=== PATIENT | female | born 1940 | race Caucasian/White ===

== ENCOUNTER 2019-05-13 16:10 | Outpatient (CLI) | payer MEDICARE, SELFPAY ==
--- NOTE | ~2019-05-13 | XR_ITS ---
XR chest 2V DATE: 05/13/2019 16:24 INDICATION: Dyspnea on exertion. Hypertension. Cardiac bypass surgery one year ago. TECHNIQUE: PA and lateral views COMPARISON: None FINDINGS: Status post sternotomy/CABG. No pulmonary infiltrate or consolidation, pulmonary vascular congestion or pleural effusion or pneumothorax. There is minimal left and mild right blunting of the costophrenic angles which may be due to pleural effusion or chronic change. Diffuse osteopenia. Diffuse idiopathic skeletal hyperostosis. IMPRESSION: Status post sternotomy/CABG Right mild and left minimal blunting of costophrenic angles, which may be chronic; cannot exclude min imal pleural effusion. Reviewed, dictated and finalized at location B. FORCE MANAGEMENT CONSULTANT IMPRESSION: Status post sternotomy/CABG Right mild and left minimal blunting of costophrenic angles, which may be chron ic; cannot exclude minimal pleural effusion.
== END 2019-05-13 16:11 | disposition home or self-care (01) ==
LOC: ANHIMG 16:14
PROVIDERS: PCP Family Medicine; Visit Provider Nurse Practitioner Adult Health
DX: R06.09 Other forms of dyspnea (principal); Z95.1 Presence of aortocoronary bypass graft; R91.8 Other nonspecific abnormal finding of lung field
CPT/HCPCS: 71046

== ENCOUNTER 2019-05-15 14:16 | Outpatient (CLI) | payer MEDICARE, SELFPAY ==
[2019-05-15 15:08] LABS: Prothrombin Time 10.7 Seconds (9.64-11.0)
== END 2019-05-15 14:17 | disposition home or self-care (01) ==
PROVIDERS: PCP Family Medicine
DX: Z79.01 Long term (current) use of anticoagulants (principal)
CPT/HCPCS: 36415; 85610

== ENCOUNTER 2019-05-15 15:56 | Outpatient (CLI) | payer MEDICARE, SELFPAY ==
--- NOTE | ~2019-05-15 | US_ITS ---
US thyroid INDICATION: Neck fullness by examination. TECHNIQUE: Real-time sonographic images of the thyroid gland were obtained. COMPARISON: No prior studies for comparison. FINDINGS: The right thyroid lobe measures 4.3 x 1.9 x 1.5 cm. The left thyroid lobe measures 3 x 1.3 x 1.1 cm. There is normal echotexture and echogenicity throughout the thyroid gland. No discrete nod ules identified. Normal vascular flow is present. IMPRESSION: 1. Unremarkable thyroid without discrete nodule or abnormal vascularity. Reviewed, dictated and finalized at location A. MEL CUTTER HAND
== END 2019-05-15 15:57 | disposition home or self-care (01) ==
PROVIDERS: PCP Family Medicine
DX: R22.1 Localized swelling, mass and lump, neck (principal); R13.10 Dysphagia, unspecified
CPT/HCPCS: 76536

== ENCOUNTER 2019-05-22 09:00 | Outpatient (CLI) | payer MEDICARE, SELFPAY ==
--- NOTE | ~2019-05-22 | CT_ITS ---
EXAMINATION:CT chest w con DATE: 05/22/2019 09:50 INDICATION: Localized swelling, mass, and lump, trunk. TECHNIQUE: Computed tomography (CT) of the chest was performed with 75 mL Omnipaque 350 intravenous c ontrast. Automated exposure control and iterative reconstruction technique were employed. The dose-le ngth product (DLP) was 235.99 mGy-cm. COMPARISON: Chest CT 07/26/2018 FINDINGS: Again seen are two 4 mm nodules in right lower lobe, likely benign. A calcified left lung n odule and calcified left hilar lymph nodes are consistent with old granulomatous disease. There is a small right pleural effusion. The heart size is normal. There are coronary artery calcifications. No pericardial effusion. There are changes of coronary artery bypass grafting. There is cortical thinnin g of the kidneys. There are healing fractures of the right ninth, 10th, and 11th ribs. There are brid ging endplate osteophytes at multiple levels in the spine, consistent with diffuse idiopathic skeleta l hyperostosis (DISH). There is a chronic compression fracture of T3 vertebral body. IMPRESSION: 1. Small right pleural effusion with improvement from 07/26/2018. Reviewed, dictated and finalized at location A. MECHANIC
== END 2019-05-22 09:01 | disposition home or self-care (01) ==
LOC: ANHIMG 09:01
PROVIDERS: PCP Family Medicine; Visit Provider Physician Assistant
DX: R22.2 Localized swelling, mass and lump, trunk (principal); J90 Pleural effusion, not elsewhere classified
CPT/HCPCS: 71260; Q9967

== ENCOUNTER 2019-06-11 00:43 | Day surgery (SDC) | payer MEDICARE, SELFPAY ==
[2019-06-05 15:19] VITALS: BMI 29.3
[2019-06-11 10:19] VITALS: BP 157/82; PULSE 58; RESP 18; TEMP 36.4; O2SAT 98
[2019-06-11] MEDS: LACTATED RINGERS 1,000 ML 150 ML IV CONT (10:30)
--- NOTE | 2019-06-11 10:36 | WPDANESEPPF ---
Anes - Initial Pre Proc Eval Procedure: Operation Date: 06/11/19 11:30 Proposed Procedures p Esophagogastroduodenoscopy - Bereket Wu MD Date/Time: 06/11/19 10:36 Surgeon: Bereket Wu MD Pre Op Diagnosis: Dysphagia Patient Data Age: 78 Gender: F Height: 5 ft 5 in Weight: 79.5 kg Last Vital Signs Temp 36.4 C 06/11/19 10:19 Pulse 58 L 06/11/19 10:19 Resp 18 06/11/19 10:19 BP 157/82 H 06/11/19 10:19 Pulse Ox 98 06/11/19 10:19 Allergies Allergy/AdvReac Type Severity Reaction Status Date / Time No Known Allergies Allergy Verified 06/11/19 10:16 Home Medications Medication Instructions Recorded Confirmed Type atorvastatin 40 mg tablet 40 mg PO DAILY #90 tablet 02/11/19 06/11/19 Rx insulin degludec 200 unit/mL (3 25 unit SUB-Q DAILY #3 ml 04/17/19 06/05/19 Rx mL) subcutaneous pen amlodipine 5 mg tablet 5 mg PO DAILY 04/22/19 06/11/19 History citalopram 10 mg tablet 10 mg PO DAILY 04/22/19 06/11/19 History insulin aspart U-100 100 unit/mL 5 unit SUB-Q DAILY ml 04/22/19 06/11/19 History (3 mL) subcutaneous pen travoprost 0.004 % eye drops 1 drop EACH EYE QPM 04/22/19 06/11/19 History blood sugar diagnostic #100 each 05/20/19 06/05/19 Rx irbesartan 75 mg tablet 75 mg PO DAILY #30 tablet 06/03/19 06/11/19 Rx aspirin 81 mg PO DAILY 06/05/19 06/11/19 History metformin 1,000 mg PO DAILY 06/05/19 06/11/19 History metoprolol tartrate [Lopressor] 12.5 mg PO DAILY 06/05/19 06/11/19 History warfarin 2 mg PO DAILY 06/05/19 06/11/19 History warfarin 4 mg PO DAILY 06/05/19 06/11/19 History Patient hx anesthesia problems: none Family hx anesthesia problems: none PMFSH Past Medical History Medical History Anxiety Arthritis 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, managed as type 2 Distal radius fracture Hearing loss History of fracture of wrist History of pulmonary embolism HTN (hypertension) Myocardial infarction (lateral wall) Pulmonary embolism Right wrist pain SOB (shortness of breath) Vision abnormalities Family History Family History Other Diabetes mellitus Family history of arthritis Family history of malignant neoplasm Social History Social History Smoking status: Never smoker Alcohol intake: never Substance use: never Anes - Eval Final PreProcedure Day of Procedure 06/11/19 10:36 Patient weight: overweight Heart: regular rate and rhythm Lungs: clear to auscultation Airway: Mallampati scale class II Neurological: alert and oriented Last oral intake: >/= 8 hours ASA classification: IV Emergent: no Anesthetic plan: proceed Anesthesia type and monitoring: general GIVS and standard monitoring Informed Consent: The patient's anesthetic plan and its attendant risks and benefits were discussed with the patient/family/POA. Questions were solicited and answers provided to the satisfaction of the patient/family/POA.
[2019-06-11 10:41] LABS: Glucose Point of Care 166 (65-105)
--- NOTE | 2019-06-11 10:59 | PM.HPGS ---
History of Present Illness History of Present Illness Consent: Risks, benefits, and alternatives have been discussed and questions answered. Patient agrees to proceed with procedure. Chief complaint: Dysphagia Narrative: Gill Kowalski is a 78 year old female who has been having difficulty with swallowing. Pills in particular and, sometimes food, will seem to get hung up in her throat. If she takes a little extra water it will go down. She may at times Need to spit out but will not pass. she has found by lump on the right side of her neck. Thyroid ultrasound apparently was normal. She is due to see an ear nose and throat physician next week [facility] Past Medical History Medical History Anxiety Arthritis 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, managed as type 2 Distal radius fracture Hearing loss History of fracture of wrist History of pulmonary embolism HTN (hypertension) Myocardial infarction (lateral wall) Pulmonary embolism Right wrist pain SOB (shortness of breath) Vision abnormalities Family History Family History Other Diabetes mellitus Family history of arthritis Family history of malignant neoplasm Social History Social History Smoking status: Never smoker Alcohol intake: never Substance use: never Meds Home Medications and Allergies Home Medications Medication Instructions Recorded Confirmed Type atorvastatin 40 mg tablet 40 mg PO DAILY #90 tablet 02/11/19 06/11/19 Rx insulin degludec 200 unit/mL (3 25 unit SUB-Q DAILY #3 ml 04/17/19 06/05/19 Rx mL) subcutaneous pen amlodipine 5 mg tablet 5 mg PO DAILY 04/22/19 06/11/19 History citalopram 10 mg tablet 10 mg PO DAILY 04/22/19 06/11/19 History insulin aspart U-100 100 unit/mL 5 unit SUB-Q DAILY ml 04/22/19 06/11/19 History (3 mL) subcutaneous pen travoprost 0.004 % eye drops 1 drop EACH EYE QPM 04/22/19 06/11/19 History blood sugar diagnostic #100 each 05/20/19 06/05/19 Rx irbesartan 75 mg tablet 75 mg PO DAILY #30 tablet 06/03/19 06/11/19 Rx aspirin 81 mg PO DAILY 06/05/19 06/11/19 History metformin 1,000 mg PO DAILY 06/05/19 06/11/19 History metoprolol tartrate [Lopressor] 12.5 mg PO DAILY 06/05/19 06/11/19 History warfarin 2 mg PO DAILY 06/05/19 06/11/19 History warfarin 4 mg PO DAILY 06/05/19 06/11/19 History Allergies Allergy/AdvReac Type Severity Reaction Status Date / Time No Known Allergies Allergy Verified 06/11/19 10:16 Vital Signs Vital Signs - 24 hr 06/11/19 10:19 Temperature 36.4 C Pulse Rate 58 L Respiratory Rate 18 Blood Pressure 157/82 H Pulse Oximetry 98 Exam Const: General: alert Orientation/consciousness: patient oriented x3 Resp: Auscultation: clear to auscultation bilaterally Cardio: Rhythm: regular rhythm GI: GI Palp: Yes Soft to palpation and No Tenderness to palpation present (GI) Neuro: General: patient oriented x3 Assessment and Plan Assessment and plan (1) Dysphagia: Code(s): R13.10 - Dysphagia, unspecified Status: Acute Assessment and Plan: EGD with possible biopsy or dilatation or cautery.
[2019-06-11 12:00] VITALS: BP 152/65; PULSE 54; RESP 20; O2SAT 100
[2019-06-11 12:10] VITALS: BP 170/69; PULSE 54; RESP 20; O2SAT 100
[2019-06-11 12:20] VITALS: BP 186/71; PULSE 56; RESP 22; O2SAT 100
--- NOTE | 2019-06-11 12:42 | SUR.PHASEII ---
DR VAZQUEZ MADE AWARE BP 181/76. ORDERS RECEIVED FOR PT TO RETURN HOME AND CONTINUE BLOOD PRESSURE MEDS BEFORE. PT NOTIFIED.
== END 2019-06-11 12:55 | disposition home or self-care (01) ==
PROVIDERS: PCP Family Medicine; Visit Provider Internal Medicine Gastroenterology
PROC: 0DJ08ZZ Inspection of Upper Intestinal Tract, Via Natural or Artificial Opening Endoscopic (ICD-10-PCS; CPT 43235; principal; 2019-06-11 11:30)
DX: K22.8 Other specified diseases of esophagus (principal); E13.9 Other specified diabetes mellitus without complications; I10 Essential (primary) hypertension; I25.2 Old myocardial infarction; F41.8 Other specified anxiety disorders; M19.90 Unspecified osteoarthritis, unspecified site; Z86.711 Personal history of pulmonary embolism; Z79.01 Long term (current) use of anticoagulants; Z79.84 Long term (current) use of oral hypoglycemic drugs; Z79.82 Long term (current) use of aspirin; Z79.4 Long term (current) use of insulin
CPT/HCPCS: 43235; 43450; J2704; J7120

== ENCOUNTER 2019-08-07 14:34 | Outpatient (RCR) | payer MEDICARE, SELFPAY ==
[2019-05-27 14:43] LABS: Prothrombin Time 10.8 Seconds (9.64-11.0)
[2019-06-03 15:56] LABS: Prothrombin Time 10.6 Seconds (9.64-11.0)
[2019-06-17 11:24] LABS: INR 1.1; Prothrombin Time 10.9 Seconds (9.64-11.0)
[2019-06-26 14:47] LABS: INR 1.3; Prothrombin Time 13.1 Seconds (9.64-11.0)
[2019-07-04 12:22] LABS: INR 1.9; Prothrombin Time 19.2 Seconds (9.64-11.0)
[2019-08-07 14:53] LABS: INR 3.2; Prothrombin Time 31.3 Seconds (9.64-11.0)
== END 2019-08-25 23:59 | disposition home or self-care (01) ==
LOC: CHSLAB 14:34
PROVIDERS: PCP Family Medicine; Visit Provider Specialist
DX: I48.91 Unspecified atrial fibrillation (principal)
CPT/HCPCS: 36415; 85610

== ENCOUNTER 2019-09-18 07:58 | Outpatient (CLI) | payer MEDICARE, SELFPAY ==
[2019-09-18 09:07] LABS: Creatinine Urine 135.35 mg/dL (40-278)
[2019-09-18 09:08] LABS: MALB Creatinine Ratio 239.5 mg/g (0-30); Microalbumin Urine Random 324.2 mg/L
[2019-09-18 09:16] LABS: Anion Gap 16.9 mmol/L (7-16); Blood Urea Nitrogen 23 mg/dL (7-18); Calcium 8.7 mg/dL (8.5-10.1); Carbon Dioxide 26 mmol/L (21-32); Chloride 104 mmol/L (98-108); Cholesterol 139 mg/dL (0-200); Estimated Glomerular Filt Rate 48; Glucose 128 mg/dL (70-99); HDL Direct 37 mg/dL (40-60); LDL Cholesterol Calculated 76 mg/dL (<130); Osmolality Calculated 299 mOsm/kg (285-295); Potassium 4.9 mmol/L (3.5-5.1); Sodium 142 mmol/L (136-145); Triglycerides 132 mg/dL (0-150)
== END 2019-09-18 07:59 | disposition home or self-care (01) ==
LOC: CHSLAB 08:00
PROVIDERS: PCP Family Medicine; Visit Provider Internal Medicine Endocrinology, Diabetes & Metabolism
DX: E11.9 Type 2 diabetes mellitus without complications (principal)
CPT/HCPCS: 36415; 80048; 80061; 82043

== ENCOUNTER 2019-11-05 14:37 | Outpatient (RCR) | payer MEDICARE, SELFPAY ==
[2019-09-05 11:00] LABS: INR 2.3; Prothrombin Time 22.8 Seconds (9.64-11.0)
[2019-10-07 17:23] LABS: INR 2.2; Prothrombin Time 22.6 Seconds (9.64-11.0)
[2019-11-05 14:57] LABS: INR 2.2; Prothrombin Time 22.3 Seconds (9.64-11.0)
== END 2019-12-04 23:59 | disposition home or self-care (01) ==
LOC: CHSLAB 14:37
PROVIDERS: PCP Family Medicine; Visit Provider Specialist
DX: I48.91 Unspecified atrial fibrillation (principal); Z79.01 Long term (current) use of anticoagulants
CPT/HCPCS: 36415; 85610

== ENCOUNTER 2019-12-14 12:28 | Outpatient (CLI) | payer MEDICARE, SELFPAY ==
[2019-12-14 12:57] LABS: INR 1.9; Prothrombin Time 19.5 Seconds (9.64-11.0)
== END 2019-12-14 12:29 | disposition home or self-care (01) ==
LOC: CHSLAB 12:30
PROVIDERS: PCP Family Medicine; Visit Provider Specialist
DX: I48.91 Unspecified atrial fibrillation (principal); Z79.01 Long term (current) use of anticoagulants
CPT/HCPCS: 36415; 85610

== ENCOUNTER 2020-02-11 12:15 | Outpatient (CLI) | payer MEDICARE, SELFPAY ==
--- NOTE | ~2020-02-11 | MM_ITS ---
EXAMINATION: MM screening magdi BI w peggy HISTORY: Screening mammogram TECHNIQUE: Craniocaudal and mediolateral oblique 3-D tomosynthesis images were obtained and synthetic 2-D images were generated. CAD analysis was submitted and interpreted. COMPARISON: No prior mammogram is available for comparison at this institution. BREAST PARENCHYMAL COMPOSITION: The breasts are heterogeneously dense, which may obscure small masses . FINDINGS: Occasional benign calcifications. There is no evidence of suspicious mass, calcification, o r architectural distortion to suggest malignancy in either breast. There has been no suspicious inter guillermo change. IMPRESSION: 1. No mammographic evidence of malignancy. 2. Recommend routine screening mammography in one year. BI-RADS Category 2: Benign finding(s). Reviewed, dictated and finalized at location B. ING SUIT MAKER
== END 2020-02-11 12:16 | disposition home or self-care (01) ==
LOC: CHSIMG 12:19
PROVIDERS: PCP Family Medicine; Visit Provider Family Medicine
DX: Z12.31 Encounter for screening mammogram for malignant neoplasm of breast (principal)
CPT/HCPCS: 36415; 77063; 77067; 85610

== ENCOUNTER 2020-03-09 10:46 | Outpatient (RCR) | payer MEDICARE, SELFPAY ==
[2020-01-13 15:55] LABS: INR 1.5; Prothrombin Time 15.8 Seconds (9.64-11.0)
[2020-01-25 12:40] LABS: INR 1.8; Prothrombin Time 18.7 Seconds (9.64-11.0)
[2020-02-11 12:48] LABS: INR 2.1; Prothrombin Time 20.8 Seconds (9.64-11.0)
[2020-03-09 11:08] LABS: INR 2.3; Prothrombin Time 24.5 Seconds (9.50-12.10)
== END 2020-04-12 23:59 | disposition home or self-care (01) ==
LOC: CHSLAB 10:46
PROVIDERS: PCP Family Medicine; Visit Provider Specialist
DX: I48.91 Unspecified atrial fibrillation (principal); Z79.01 Long term (current) use of anticoagulants
CPT/HCPCS: 36415; 85610

== ENCOUNTER 2020-04-09 08:14 | Outpatient (CLI) | payer MEDICARE, SELFPAY ==
--- NOTE | ~2020-04-09 | XR_ITS ---
EXAMINATION: XR chest 2V DATE: 04/09/2020 08:43 INDICATION: Increasing shortness of breath TECHNIQUE: PA and lateral views of the chest are obtained. COMPARISON: 05/13/2019 FINDINGS: The lungs are free of acute opacities. There is no pleural effusion or pneumothorax. The he art size is normal. Median sternotomy wires and mediastinal surgical clips are seen, likely from prio r coronary artery bypass grafting. There are bridging osteophytes at multiple levels in the spine, co nsistent with diffuse idiopathic skeletal hyperostosis (DISH). IMPRESSION: 1. No acute cardiopulmonary abnormality. Reviewed, dictated and finalized at location A. NING MANAGER
[2020-04-09 08:47] LABS: INR 2.1
[2020-04-09 09:19] LABS: Anion Gap 10 mmol/L (8-16); Blood Urea Nitrogen 21 mg/dL (7-18); Calcium 8.7 mg/dL (8.5-10.1); Carbon Dioxide 26 mmol/L (21-32); Chloride 103 mmol/L (98-108); Estimated Glomerular Filt Rate 45; Glucose 270 mg/dL (70-99); Osmolality Calculated 301 mOsm/kg (285-295); Potassium 4.3 mmol/L (3.5-5.1); Sodium 139 mmol/L (136-145)
[2020-04-09 09:40] LABS: Microalbumin Urine Random > 400.0 mg/L
--- NOTE | 2020-04-09 12:34 | P.PCNPFT_ITS ---
PFT Interpretation PFT Interpretation: DOS: 04/09/2019 REQUESTING: Poncho Cardozo REASON FOR TESTING: dyspnea on exertion PULMONARY FUNCTION TESTS Results are reproducible. Spirometry: FEV1 is 65%, 1.28 L, mildly decreased. FVC is 86%, normal. FEV1/FVC ratio is 59% consistent with airflow obstruction. There is a 14% i ncrease in FEV1 after bronchodilator, however the absolute increase is 190 ml, less than 200 ml which is the criteria for significant response by ATS. the FEF 25-75 is 33% extremely low and increases by 45% after bronchodilator which is significant. Lung volumes: Total lung capacity is 108%, normal. Residual volume is 138% consistent with air trapping. RV/TLC is increased at 54%. Airway resistance 344%. ERV is not recorded. Diffusion: DLCO is 52% moderately decreased. Flow volume loop: Scooping of the expiratory limb IMPRESSION: Mild obstructive ventilatory impairment which is severe in the small airways with good response to bronchodilator, mild air trapping, increased airway resistance and moderate diffusion impairment. In the proper clinical setting this may be consistent with asthma COPD overlap. Carmen Lewis MD
== END 2020-04-09 08:15 | disposition home or self-care (01) ==
PROVIDERS: Internal Medicine Endocrinology, Diabetes & Metabolism; PCP Family Medicine; Visit Provider Nurse Practitioner Family
DX: E11.9 Type 2 diabetes mellitus without complications (principal); R06.00 Dyspnea, unspecified; Z79.01 Long term (current) use of anticoagulants
CPT/HCPCS: 36415; 71046; 80048; 82043; 85610; 94060; 94726; 94729

== ENCOUNTER 2020-04-16 13:38 | Outpatient (CLI) | payer MEDICARE, SELFPAY ==
--- NOTE | 2020-04-16 13:42 | ECHO_ITS ---
Patient Info Name: Gill Kowalski Age: 79 years : 1940 Gender: Female Ht: 64 in Wt: 178 lbs BSA: 1.94 m2 HR: 58 bpm BP: 184 / 71 mmHg Technical Quality: Fair Exam Date: 04/16/2020 1:47 PM Exam Location: [facility] Patient Status: Outpatient Admit Date: 04/16/2020 Staff Ordering Physician: Garima Ricketts Structural Drafter: Elda Davis RDCS Attending Provider: Garima Ricketts Referring Physician: Jamarcus FLORES; Exam Type: CA echo dop color flow w con Study Info Indications R94.31 - Abnormal electrocardiogram ECG EKG Complete two-dimensional, color flow and Doppler transthoracic echocardiogram is performed with contrast to opacify the left ventricle and to improve the deliniation of the left ventricle endocardial borders. History/Risk Factors Hypertension: Yes Dyslipidemia: No Congenital Heart Disease (CHD): No Diabetic Therapy: Oral, Insulin Peripheral Arterial Disease (PAD): No Myocardial Infarction (LA): Yes Chronic Lung Disease: No Obesity: Yes Renal Disease: No Coronary Artery Disease (CAD) Yes Congestive Heart Failure (CHF): No Diabetes Mellitus: Type II COPD: No Cerebrovascular Disease: No Family History: Diabetes Mellitus DVT Treatment: Warfarin Deep Vein Thrombosis (DVT): Chronic Dialysis: None Frailty Scale (CSHA): 3: Managing Well Summary 1. Left ventricular chamber dimension is normal. 2. Definity contrast administered improved wall motion interpretation. 3. Left ventricular systolic function is normal, estimated at 55-60%. 4. There is mildly increased left ventricular wall thickness. 5. The left ventricular diastolic function is grade II diastolic dysfunction. 6. E/e' 16 is elevated. 7. Left atrial chamber dimension is mildly enlarged. 8. There is mild mitral valve regurgitation. 9. There is trace tricuspid valve regurgitation. 10. Mild pulmonary hypertension, estimated pulmonary arterial systolic pressure is 41 mmHg. 11. Small atheroma in anterior and posterior aortic root. Recommendations * Continue medical therapy for diabetes. Left Ventricle Definity contrast administered improved wall motion interpretation. E/e' 16 is elevated. Left ventricular chamber dimension is normal. Left ventricular systolic function is normal, estimated at 55-60%. There is mildly increased left ventricular wall thickness. The left ventricular diastolic function is grade II diastolic dysfunction. Right Ventricle Right ventricular chamber dimension is normal. Right ventricular systolic function is normal. Left Atria Left atrial chamber dimension is mildly enlarged. Right Atria Right atrial chamber dimension is normal. Aortic Valve The aortic valve is trileaflet. There is no aortic valve stenosis. There is no aortic valve regurgitation. Pulmonic Valve There is no pulmonic regurgitation. Mitral Valve There is no mitral valve stenosis. There is mild mitral valve regurgitation. Tricuspid Valve There is trace tricuspid valve regurgitation. Mild pulmonary hypertension, estimated pulmonary arterial systolic pressure is 41 mmHg. Pericardium/Pleural There is no pericardial effusion. Inferior Vena Cava Normal inferior vena cava with >50% collapse upon inspiration consistent with normal right atrial pressure, 5 mmHg. Aorta Small atheroma in anterior and posterior aortic root. The aortic root size at the sinus of Vals
== END 2020-04-16 13:39 | disposition home or self-care (01) ==
LOC: CHSIMG 13:39
PROVIDERS: PCP Family Medicine; Visit Provider Nurse Practitioner Family
DX: R94.31 Abnormal electrocardiogram [ECG] [EKG] (principal)
CPT/HCPCS: C8929

== ENCOUNTER 2020-05-25 13:57 | Outpatient (CLI) | payer MEDICARE, SELFPAY ==
[2020-05-25 14:33] LABS: Basophils Absolute Auto 0.1 K/mm3 (0.0-0.1); Basophils Percent Auto 0.8 % (0.2-1.2); Eosinophils Absolute Auto 0.2 K/mm3 (0-0.3); Eosinophils Percent Auto 3.7 % (0-4.4); Hematocrit 33.3 % (37.0-47.0); Hemoglobin 10.2 g/dL (12.0-15.0); Immature Granulocyte Absolute 0.01 K/mm3 (0.00-0.031); Immature Granulocyte Percent A 0.2 % (0-0.5); Lymphocytes Absolute Auto 1.71 K/mm3 (0.9-3.2); Lymphocytes Percent Auto 26.4 % (18.3-44.2); Mean Corpuscular HGB Conc 30.6 g/dl (32-36); Mean Corpuscular Hemoglobin 26.2 pg (26-34); Mean Corpuscular Volume 85.6 fl (80-100); Mean Platelet Volume 9.7 fl (7.4-10.4); Monocytes Absolute Auto 0.5 K/mm3 (0.1-0.6); Monocytes Percent Auto 7.4 % (2.6-8.5); Neutrophils Percent Auto 61.5 % (45.5-73.1); Platelet Count Result 279 k/mm3 (150-375); Red Blood Count 3.89 M/mm3 (4.2-5.4); Red Cell Distribution Width 15.9 % (11.5-14.5); White Blood Count 6.5 K/mm3 (4.5-10.0)
[2020-05-25 14:46] LABS: Alanine Aminotransferase 15 U/L (4-35); Alkaline Phosphatase 88 U/L (38-126); Anion Gap 7 mmol/L (8-16); Aspartate Amino Transferase 22 U/L (14-36); Bilirubin,Total 0.4 mg/dL (0.2-1.3); Blood Urea Nitrogen 17 mg/dL (7-17); Calcium 9.1 mg/dL (8.4-10.2); Carbon Dioxide 27 mmol/L (22-30); Chloride 106 mmol/L (98-107); Estimated Glomerular Filt Rate 54; Glucose 89 mg/dL (65-105); Potassium 4.2 mmol/L (3.4-5.0); Sodium 140 mmol/L (137-145)
[2020-05-25 14:53] LABS: NT Pro B Type Natriuretic Pept 3230 PG/ML (5-100)
[2020-05-25 14:59] LABS: Hemoglobin A1C 6.5 % (<5.7)
== END 2020-05-25 13:58 | disposition home or self-care (01) ==
PROVIDERS: PCP Family Medicine; Visit Provider Nurse Practitioner Family
DX: E11.65 Type 2 diabetes mellitus with hyperglycemia (principal); Z79.4 Long term (current) use of insulin; I50.9 Heart failure, unspecified; I10 Essential (primary) hypertension; F41.9 Anxiety disorder, unspecified
CPT/HCPCS: 36415; 80053; 83036; 83880; 84443; 85025

== ENCOUNTER 2020-06-08 12:27 | Outpatient (CLI) | payer MEDICARE, SELFPAY ==
[2020-06-08 12:59] LABS: INR 1.8; Prothrombin Time 18.2 Seconds (9.50-12.10)
[2020-06-08 13:49] LABS: Alanine Aminotransferase 24 U/L (14-59); Albumin Level 3.4 g/dL (3.4-5.0); Alkaline Phosphatase 91 U/L (46-116); Anion Gap 11 mmol/L (8-16); Aspartate Amino Transferase 13 U/L (15-37); Bilirubin,Total 0.5 mg/dL (0.00-1.00); Blood Urea Nitrogen 24 mg/dL (7-18); Calcium 9.2 mg/dL (8.5-10.1); Carbon Dioxide 27 mmol/L (21-32); Chloride 102 mmol/L (98-108); Estimated Glomerular Filt Rate 40; Glucose 125 mg/dL (70-99); Osmolality Calculated 295 mOsm/kg (285-295); Potassium 4.3 mmol/L (3.5-5.1); Sodium 140 mmol/L (136-145); Total Protein 6.4 g/dL (6.4-8.2)
== END 2020-06-08 12:28 | disposition home or self-care (01) ==
PROVIDERS: PCP Family Medicine; Visit Provider Nurse Practitioner Family
DX: I48.91 Unspecified atrial fibrillation (principal)
CPT/HCPCS: 36415; 80053; 85610

== ENCOUNTER 2020-06-17 11:01 | Outpatient (CLI) | payer MEDICARE, SELFPAY ==
[2020-06-17 12:08] LABS: Alanine Aminotransferase 25 U/L (14-59); Albumin Level 3.2 g/dL (3.4-5.0); Alkaline Phosphatase 90 U/L (46-116); Anion Gap 8 mmol/L (8-16); Aspartate Amino Transferase 13 U/L (15-37); Bilirubin,Total 0.4 mg/dL (0.00-1.00); Blood Urea Nitrogen 24 mg/dL (7-18); Carbon Dioxide 28 mmol/L (21-32); Chloride 103 mmol/L (98-108); Estimated Glomerular Filt Rate 46; Glucose 240 mg/dL (70-99); Osmolality Calculated 300 mOsm/kg (285-295); Potassium 4.1 mmol/L (3.5-5.1); Sodium 139 mmol/L (136-145); Total Protein 6.2 g/dL (6.4-8.2)
[2020-06-17 12:14] LABS: Calcium 8.3 mg/dL (8.5-10.1)
== END 2020-06-17 11:02 | disposition home or self-care (01) ==
LOC: CHSLAB 11:03
PROVIDERS: PCP Family Medicine; Visit Provider Nurse Practitioner Family
DX: R94.4 Abnormal results of kidney function studies (principal)
CPT/HCPCS: 36415; 80053

== ENCOUNTER 2020-07-03 11:52 | Outpatient (CLI) | payer MEDICARE, SELFPAY ==
[2020-07-03 12:25] LABS: BNP 862 pg/mL (0-100)
[2020-07-03 12:27] LABS: INR 2.6; Prothrombin Time 26.3 Seconds (9.50-12.10)
== END 2020-07-03 11:53 | disposition home or self-care (01) ==
LOC: CHSLAB 11:54
PROVIDERS: PCP Family Medicine; Visit Provider Nurse Practitioner Family
DX: I48.91 Unspecified atrial fibrillation (principal); I50.9 Heart failure, unspecified
CPT/HCPCS: 36415; 83880; 85610

== ENCOUNTER 2020-08-03 11:35 | Outpatient (RCR) | payer MEDICARE, SELFPAY ==
[2020-05-08 15:52] LABS: Prothrombin Time 21.1 Seconds (9.50-12.10)
[2020-08-03 12:11] LABS: INR 2.5; Prothrombin Time 25.8 Seconds (9.50-12.10)
== END 2020-08-06 23:59 | disposition home or self-care (01) ==
LOC: CHSLAB 11:35
PROVIDERS: PCP Family Medicine; Visit Provider Specialist
DX: I48.91 Unspecified atrial fibrillation (principal); Z79.01 Long term (current) use of anticoagulants
CPT/HCPCS: 36415; 85610

== ENCOUNTER 2020-10-05 15:36 | Outpatient (CLI) | payer MEDICARE, SELFPAY ==
[2020-10-05 15:51] LABS: Basophils Absolute Auto 0.04 K/mm3 (0.00-0.10); Basophils Percent Auto 0.5 % (0.0-1.0); Eosinophils Absolute Auto 0.24 K/mm3 (0.02-0.50); Eosinophils Percent Auto 3.3 % (1.0-6.0); Hemoglobin 12.2 g/dL (11.7-13.8); Immature Granulocyte Absolute 0.01 K/mm3 (0.00-0.00); Immature Granulocyte Percent A 0.1 % (0.0-0.0); Lymphocytes Absolute Auto 1.82 K/mm3 (1.10-4.50); Lymphocytes Percent Auto 24.8 % (18.0-42.0); Mean Corpuscular Hemoglobin 28.7 pg (27.0-31.0); Mean Corpuscular Volume 87.1 fL (78.0-102.0); Mean Platelet Volume 9.2 fl (9.2-11.8); Monocytes Absolute Auto 0.47 K/mm3 (0.10-0.90); Monocytes Percent Auto 6.4 % (2.0-11.0); Neutrophils Absolute Auto 4.8 K/mm3 (1.7-7.2); Neutrophils Percent Auto 64.9 % (50.0-70.0); Platelet Count Result 202 K/mm3 (150-420); Red Blood Count 4.25 M/mm3 (4.20-5.40); Red Cell Distribution Width 15.8 % (11.6-14.4); White Blood Count 7.3 K/mm3 (4.8-10.8)
[2020-10-05 16:04] LABS: Hemoglobin A1C 7.2 % (<5.7)
[2020-10-05 16:19] LABS: Alanine Aminotransferase 26 U/L (14-59); Albumin Level 3.6 g/dL (3.4-5.0); Alkaline Phosphatase 95 U/L (46-116); Anion Gap 11 mmol/L (8-16); Aspartate Amino Transferase 12 U/L (15-37); Bilirubin,Total 0.4 mg/dL (0.00-1.00); Blood Urea Nitrogen 21 mg/dL (7-18); Calcium 9.2 mg/dL (8.5-10.1); Carbon Dioxide 27 mmol/L (21-32); Chloride 103 mmol/L (98-108); Estimated Glomerular Filt Rate 44; Glucose 179 mg/dL (70-99); Osmolality Calculated 299 mOsm/kg (285-295); Potassium 4.9 mmol/L (3.5-5.1); Sodium 141 mmol/L (136-145); Total Protein 6.9 g/dL (6.4-8.2)
[2020-10-05 16:35] LABS: INR 2.3
[2020-10-05 16:35] LABS: Add Urine Microscopic? YES; Appearance Urine Clear (Clear); Bilirubin Urine Negative (Negative); Blood Urine Negative (Negative); Color Urine Light Yellow (Yellow); Glucose Urine UA Negative (Negative); Ketones Urine Negative (Negative); Leukocyte Esterase Ur 1+ (Negative); Nitrate Urine Negative (Negative); Protein Urine Negative (Negative); Specific Grav Ur <= 1.005 (1.010-1.020); Urobilinogen Urine 0.2 mg/dL (0.2-1.0); pH Urine 5.5 (5.0-8.0)
[2020-10-05 16:45] LABS: RBC Urine 0-2 /hpf (0-2)
[2020-10-05 16:46] LABS: Bacteria Urine 1+ /hpf; Squamous Epithelial Cell Urine Few /hpf (Few)
== END 2020-10-05 15:37 | disposition home or self-care (01) ==
LOC: CHSLAB 15:39
PROVIDERS: PCP Family Medicine; Visit Provider Nurse Practitioner Family
DX: E11.65 Type 2 diabetes mellitus with hyperglycemia (principal); Z79.4 Long term (current) use of insulin; I10 Essential (primary) hypertension; D64.9 Anemia, unspecified; Z00.00 Encounter for general adult medical examination without abnormal findings; I48.91 Unspecified atrial fibrillation
CPT/HCPCS: 36415; 80053; 81001; 83036; 85025; 85610

== ENCOUNTER 2020-11-11 10:55 | Outpatient (RCR) | payer MEDICARE, SELFPAY ==
[2020-09-01 14:54] LABS: INR 2.1
[2020-11-11 11:37] LABS: INR 2.1; Prothrombin Time 21.6 Seconds (9.50-12.10)
== END 2020-11-30 23:59 | disposition home or self-care (01) ==
LOC: CHSLAB 10:55
PROVIDERS: PCP Family Medicine; Visit Provider Specialist
DX: I48.91 Unspecified atrial fibrillation (principal)
CPT/HCPCS: 36415; 85610

== ENCOUNTER 2021-02-08 13:04 | Outpatient (RCR) | payer MEDICARE, SELFPAY ==
[2020-12-08 15:27] LABS: INR 2.6; Prothrombin Time 26.2 Seconds (9.50-12.10)
[2021-01-04 15:09] LABS: Prothrombin Time 20.4 Seconds (9.50-12.10)
[2021-02-08 13:26] LABS: INR 2.7; Prothrombin Time 27.7 Seconds (9.50-12.10)
== END 2021-03-08 23:59 | disposition home or self-care (01) ==
LOC: CHSLAB 13:04
PROVIDERS: PCP Family Medicine; Visit Provider Specialist
DX: I48.91 Unspecified atrial fibrillation (principal)
CPT/HCPCS: 36415; 85610

== ENCOUNTER 2021-02-16 14:04 | Outpatient (CLI) | payer MEDICARE, SELFPAY ==
--- NOTE | ~2021-02-16 | MM_ITS ---
EXAMINATION: MM screening magdi BI w peggy HISTORY: Screening mammogram, family history of breast cancer in her mother. TECHNIQUE: Craniocaudal and mediolateral oblique 3-D tomosynthesis images were obtained and synthetic 2-D images were generated. CAD analysis was submitted and interpreted. COMPARISON: 02/11/2020 BREAST PARENCHYMAL COMPOSITION: There are scattered areas of fibroglandular density. FINDINGS: Scattered benign-appearing calcifications are present. There is no evidence of suspicious m ass, calcification, or architectural distortion to suggest malignancy in either breast. There has bee n no suspicious interval change. IMPRESSION: 1. No mammographic evidence of malignancy. 2. Recommend routine screening mammography in one year. BI-RADS Category 2: Benign finding(s). Reviewed, dictated and finalized at location A. GRATED MARKETING SPECIALIST
== END 2021-02-16 14:05 | disposition home or self-care (01) ==
LOC: CHSIMG 14:05
PROVIDERS: PCP Family Medicine; Visit Provider Family Medicine
DX: Z12.31 Encounter for screening mammogram for malignant neoplasm of breast (principal)
CPT/HCPCS: 77063; 77067

== ENCOUNTER 2021-05-04 14:31 | Outpatient (CLI) | payer MEDICARE, SELFPAY ==
[2021-05-04 14:56] LABS: Hemoglobin A1C 6.7 % (<5.7)
[2021-05-04 15:00] LABS: INR 1.4; Prothrombin Time 14.5 Seconds (9.50-12.10)
[2021-05-04 16:31] LABS: Alanine Aminotransferase 35 U/L (14-59); Albumin Level 3.6 g/dL (3.4-5.0); Alkaline Phosphatase 98 U/L (46-116); Anion Gap 12 mmol/L (8-16); Aspartate Amino Transferase 18 U/L (15-37); Bilirubin,Total 0.3 mg/dL (0.00-1.00); Blood Urea Nitrogen 23 mg/dL (7-18); Calcium 8.9 mg/dL (8.5-10.1); Carbon Dioxide 26 mmol/L (21-32); Chloride 102 mmol/L (98-108); Estimated Glomerular Filt Rate 38; Glucose 79 mg/dL (70-99); Osmolality Calculated 292 mOsm/kg (285-295); Potassium 4.6 mmol/L (3.5-5.1); Sodium 140 mmol/L (136-145); Total Protein 6.6 g/dL (6.4-8.2)
== END 2021-05-04 14:32 | disposition home or self-care (01) ==
LOC: CHSLAB 14:35
PROVIDERS: PCP Family Medicine; Visit Provider Nurse Practitioner Family
DX: E11.65 Type 2 diabetes mellitus with hyperglycemia (principal); I48.91 Unspecified atrial fibrillation; Z79.4 Long term (current) use of insulin; I10 Essential (primary) hypertension
CPT/HCPCS: 36415; 80053; 83036; 85610

== ENCOUNTER 2021-05-11 12:21 | Outpatient (RCR) | payer MEDICARE, SELFPAY ==
[2021-03-15 14:20] LABS: INR 1.8; Prothrombin Time 18.8 Seconds (9.50-12.10)
[2021-03-29 12:28] LABS: Prothrombin Time 20.9 Seconds (9.50-12.10)
== END 2021-06-13 23:59 | disposition home or self-care (01) ==
LOC: CHSLAB 12:21
PROVIDERS: PCP Family Medicine; Visit Provider Specialist
DX: I48.91 Unspecified atrial fibrillation (principal)
CPT/HCPCS: 36415; 85610

== ENCOUNTER 2021-08-18 11:50 | Outpatient (RCR) | payer MEDICARE, SELFPAY ==
[2021-06-16 12:20] LABS: INR 1.7; Prothrombin Time 18.1 Seconds (9.50-12.10)
[2021-07-01 11:34] LABS: INR 4.9
[2021-07-08 12:33] LABS: INR 2.8
[2021-08-18 12:24] LABS: INR 3.3; Prothrombin Time 33.3 Seconds (9.50-12.10)
== END 2021-09-14 23:59 | disposition home or self-care (01) ==
LOC: CHSLAB 11:50
PROVIDERS: PCP Family Medicine; Visit Provider Specialist
DX: I48.91 Unspecified atrial fibrillation (principal)
CPT/HCPCS: 36415; 85610

== ENCOUNTER 2021-08-26 14:13 | Outpatient (CLI) | payer MEDICARE, SELFPAY ==
--- NOTE | ~2021-08-26 | XR_ITS ---
EXAMINATION: XR lumbar spine 2-3V DATE: 08/26/2021 14:33 INDICATION: Low back pain TECHNIQUE: Anteroposterior and lateral views of the lumbar spine, and cone-down lateral view of the l umbosacral junction were obtained. COMPARISON: None. FINDINGS: There are 5 mm of anterolisthesis of L4 on L5. Vertebral body alignment is otherwise normal . There is no fracture. There is severe loss of intervertebral disc space height at L3-4 and L4-5 and moderate loss of disc space height at L5-S1. The vertebral body heights are normal. Calcified athero sclerosis is noted. Degenerative osteophytes project from the anterior endplates of multiple vertebra l bodies. IMPRESSION: 1. Severe lumbar spondylosis without acute findings. Reviewed, dictated and finalized at location F.
== END 2021-08-26 14:14 | disposition home or self-care (01) ==
PROVIDERS: PCP Family Medicine; Visit Provider Nurse Practitioner Family
DX: M47.816 Spondylosis without myelopathy or radiculopathy, lumbar region (principal)
CPT/HCPCS: 72100

== ENCOUNTER 2021-08-31 12:03 | Emergency (ER) | payer MEDICARE, SELFPAY ==
--- NOTE | ~2021-08-31 | CT_ITS ---
EXAMINATION: CT pelvis wo con DATE: 08/31/2021 13:16 INDICATION: Right hip pain after recent fall TECHNIQUE: Computed tomography (CT) of the pelvis was performed without intravenous contrast. The dos e-length product was 551.32 mGy-cm. Automated exposure control and iterative reconstruction technique were employed. COMPARISON: None FINDINGS: Pelvic rings are intact. There is moderate osteoarthritis of the hips. No acute fracture or traumatic malalignment. No sacral fracture. There is moderate-severe lower lumbar spondylosis partia lly visualized. No focal soft tissue abnormality. IMPRESSION: 1. No acute fracture of the right hip. 2: Moderate osteoarthritis of the hips. Reviewed, dictated and finalized at location B.
[2021-08-31 12:08] VITALS: BP 130/59; PULSE 88; RESP 16; TEMP 36.9; O2SAT 98
[2021-08-31 12:20] VITALS: BP 167/69; PULSE 62; TEMP 36.8; O2SAT 98
--- NOTE | 2021-08-31 13:04 | ED.LOWEXIN ---
HPI - Extremity Injury (Lower) General Chief Complaint: Extremity Injury, Lower Stated Complaint: fell 2 wks ago right side and left leg pain Time Seen by Provider: 08/31/21 12:07 Source: patient and RN notes reviewed Mode of arrival: ambulatory Limitations: no limitations History of Present Illness complaint: hip injury Type of Injury: other (pt fell onto the right hip) Place: home Severity: moderate Severity scale (1-10): 5 Relieving factors: other (tylenol) Exacerbating factors: weight bearing and movement Context: fall (2 weeks ago) Associated symptoms: ambulatory Other symptoms: none Related Data Home Medications Medication Instructions Recorded Confirmed aspirin 81 mg tablet,delayed 81 mg PO DAILY 06/05/19 08/31/21 release loratadine 10 mg tablet 10 mg PO DAILY 09/11/19 08/31/21 warfarin 2 mg tablet 6 mg PO DAILY 09/11/19 08/31/21 metoprolol tartrate 25 mg tablet 25 mg PO DAILY 06/01/20 08/31/21 Allergies Allergy/AdvReac Type Severity Reaction Status Date / Time No Known Allergies Allergy Verified 08/31/21 12:31 Review of Systems Review of Systems: All systems reviewed & are unremarkable except as noted in HPI and below Constitutional: Constitutional: Reports no additional constitutional complaints Eyes: Eyes: Reports no additional eye complaints ENT: Reports system reviewed and no additional complaints, except as documented Cardiovascular: Cardiovascular: Reports no additional cardiovascular complaints Respiratory: Respiratory: Reports no additional respiratory complaints Gastrointestinal: Gastrointestinal: Reports no additional gastrointestinal complaints Genitourinary: Genitourinary: Reports no additional female genitourinary complaints Musculoskeletal: Musculoskeletal: Reports no additional musculoskeletal complaints Integumentary/Breasts: Skin/Breast: Reports system reviewed and no additional complaints, except as docu Neurologic: Reports system reviewed and no additional complaints, except as documented Psychiatric: Psychiatric: Reports no additional psychiatric complaints Endocrine: Endocrine: Reports no additional endocrine complaints Hematologic/Lymphatic: Hematologic/Lymphatic: Reports no additional hematologic/lymphatic complaints Allergic/Immunologic: Allergic/Immunologic: Reports no additional allergic/immunologic complaints PMFSH Past Medical History Medical History Anxiety Arthritis Back pain Cataracts, bilateral 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, managed as type 2 Distal radius fracture Elbow tendonitis Foot fracture Glaucoma Hearing loss Heart disease History of fracture of wrist History of pulmonary embolism HTN (hypertension) Myocardial infarction (lateral wall) Pulmonary embolism Right sided sciatica Right wrist pain SOB (shortness of breath) Vision abnormalities Surgical History Surgical History H/O cataract extraction H/O heart bypass surgery H/O shoulder surgery H/O sinus surgery History of bunionectomy Family History Family History Other Diabetes mellitus Family history of arthritis Family history of malignant neoplasm Social History Social History Social History: Smoking status: Former smoker Second hand tobacco smoke exposure: No Alcohol intake: never Substance use: never Substance use type: does not use Additional 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 Gender identity (if verbalized by the patient): Female Sexual Orientation (if Verbalized by the Patient): Straight or Heterosexual Exam Const: General: healthy appearing and no acute distress Nutritional Appearance: well nourished Orientation/consciousness: patient oriented x3 Limitations: no limitations HENMT: Head: n
--- NOTE | 2021-08-31 13:33 | PC.NURSE ---
PT IS ATTEMPTING TO FIND A RIDE HOME. PT DROVE SELF AND MOPHINE WAS ORDERED, UNABLE TO ADMINISTER WITHOUT RIDE HOME.
[2021-08-31] MEDS: MORPHINE SULFATE (*CRX) 4 MG/ML INJ IM (13:42)
--- NOTE | 2021-08-31 13:45 | PC.NURSE ---
PT HAS FRIEND COMING TO PICK HER UP. MEDICATIONS WERE GIVEN.
[2021-08-31 13:55] VITALS: BP 138/78; PULSE 78; RESP 16; O2SAT 98
== END 2021-08-31 13:55 | disposition home or self-care (01) ==
PROVIDERS: Emergency Provider Emergency Medicine; PCP Family Medicine
DX: M54.31 Sciatica, right side (principal); E13.9 Other specified diabetes mellitus without complications; Z87.891 Personal history of nicotine dependence
CPT/HCPCS: 72192; 96372; 99284; J2270

== ENCOUNTER 2021-10-28 15:03 | Outpatient (CLI) | payer MEDICARE, SELFPAY ==
[2021-10-28 15:19] LABS: Basophils Absolute Auto 0.05 K/mm3 (0.00-0.10); Basophils Percent Auto 0.5 % (0.0-1.0); Eosinophils Absolute Auto 0.17 K/mm3 (0.02-0.50); Eosinophils Percent Auto 1.8 % (1.0-6.0); Hematocrit 37.2 % (35.0-42.0); Hemoglobin 12.2 g/dL (11.7-13.8); Immature Granulocyte Absolute 0.03 K/mm3 (0.00-0.00); Immature Granulocyte Percent A 0.3 % (0.0-0.0); Lymphocytes Absolute Auto 1.66 K/mm3 (1.10-4.50); Lymphocytes Percent Auto 17.9 % (18.0-42.0); Mean Corpuscular HGB Conc 32.8 g/dL (32.0-36.0); Mean Corpuscular Hemoglobin 31.8 pg (27.0-31.0); Mean Corpuscular Volume 96.9 fL (78.0-102.0); Mean Platelet Volume 9.3 fl (9.2-11.8); Monocytes Absolute Auto 0.59 K/mm3 (0.10-0.90); Monocytes Percent Auto 6.4 % (2.0-11.0); Neutrophils Absolute Auto 6.8 K/mm3 (1.7-7.2); Neutrophils Percent Auto 73.1 % (50.0-70.0); Platelet Count Result 218 K/mm3 (150-420); Red Blood Count 3.84 M/mm3 (4.20-5.40); Red Cell Distribution Width 13.3 % (11.6-14.4); White Blood Count 9.3 K/mm3 (4.8-10.8)
[2021-10-28 15:20] LABS: Add Urine Microscopic? YES; Appearance Urine Clear (Clear); Bilirubin Urine 1+ (Negative); Blood Urine Negative (Negative); Color Urine Yellow (Yellow); Glucose Urine UA Negative (Negative); Ketones Urine Trace (Negative); Leukocyte Esterase Ur 1+ (Negative); Nitrate Urine Negative (Negative); Protein Urine 1+ (Negative); Specific Grav Ur 1.025 (1.010-1.020); Urobilinogen Urine 0.2 mg/dL (0.2-1.0); pH Urine 5.5 (5.0-8.0)
[2021-10-28 15:33] LABS: RBC Urine 0-2 /hpf (0-2); Squamous Epithelial Cell Urine Few /hpf (Few)
[2021-10-28 15:34] LABS: Bacteria Urine Trace /hpf
[2021-10-28 15:49] LABS: Alanine Aminotransferase 18 U/L (14-59); Albumin Level 3.6 g/dL (3.4-5.0); Alkaline Phosphatase 113 U/L (46-116); Anion Gap 11 mmol/L (8-16); Aspartate Amino Transferase 16 U/L (15-37); Bilirubin,Total 0.5 mg/dL (0.00-1.00); Blood Urea Nitrogen 25 mg/dL (7-18); Calcium 8.6 mg/dL (8.5-10.1); Carbon Dioxide 22 mmol/L (21-32); Chloride 106 mmol/L (98-108); Estimated Glomerular Filt Rate 31; Glucose 144 mg/dL (70-99); Osmolality Calculated 295 mOsm/kg (285-295); Potassium 5.3 mmol/L (3.5-5.1); Sodium 139 mmol/L (136-145); Thyroid Stimulating Hormone 1.37 uIU/mL (0.36-3.74); Total Protein 6.9 g/dL (6.4-8.2)
[2021-10-28 16:19] LABS: INR 4.2; Prothrombin Time 40.9 Seconds (9.50-12.10)
== END 2021-10-28 15:04 | disposition home or self-care (01) ==
LOC: CHSLAB 15:06
PROVIDERS: PCP Family Medicine; Visit Provider Nurse Practitioner Family
DX: I48.91 Unspecified atrial fibrillation (principal); D64.9 Anemia, unspecified; E11.65 Type 2 diabetes mellitus with hyperglycemia; Z79.4 Long term (current) use of insulin; E11.9 Type 2 diabetes mellitus without complications; I10 Essential (primary) hypertension; Z00.00 Encounter for general adult medical examination without abnormal findings
CPT/HCPCS: 36415; 80053; 81001; 84443; 85025; 85610

== ENCOUNTER 2021-11-05 15:49 | Outpatient (RCR) | payer MEDICARE, SELFPAY ==
[2021-09-15 11:40] LABS: Prothrombin Time 65.4 Seconds (9.50-12.10)
[2021-09-17 12:26] LABS: Prothrombin Time 29.8 Seconds (9.50-12.10)
[2021-09-24 14:12] LABS: INR 2.2; Prothrombin Time 22.5 Seconds (9.50-12.10)
[2021-11-05 16:12] LABS: INR 2.2; Prothrombin Time 22.4 Seconds (9.50-12.10)
== END 2021-12-14 23:59 | disposition home or self-care (01) ==
LOC: CHSLAB 15:49
PROVIDERS: PCP Family Medicine; Visit Provider Specialist
DX: I48.91 Unspecified atrial fibrillation (principal)
CPT/HCPCS: 36415; 85610

== ENCOUNTER 2021-12-08 12:38 | Outpatient (CLI) | payer MEDICARE, SELFPAY ==
[2021-12-08 13:13] LABS: INR 2.2; Prothrombin Time 22.4 Seconds (9.50-12.10)
[2021-12-08 13:47] LABS: HDL Direct 43 mg/dL (40-60); LDL Cholesterol Direct 81 mg/dL (0-130); Vitamin B12 216 pg/mL (193-986)
[2021-12-10 06:42] LABS: MALB Creatinine Ratio 197.1 mg/g (0-30)
== END 2021-12-08 12:39 | disposition home or self-care (01) ==
LOC: CHSLAB 12:42
PROVIDERS: PCP Family Medicine; Visit Provider Internal Medicine Endocrinology, Diabetes & Metabolism
DX: I48.91 Unspecified atrial fibrillation (principal); E11.65 Type 2 diabetes mellitus with hyperglycemia; Z79.4 Long term (current) use of insulin
CPT/HCPCS: 36415; 82043; 82607; 83718; 83721; 85610

== ENCOUNTER 2022-02-23 13:18 | Outpatient (CLI) | payer MEDICARE, SELFPAY ==
--- NOTE | ~2022-02-23 | MM_ITS ---
EXAMINATION: MM screening magdi BI w peggy HISTORY: Screening mammogram, family history of breast cancer in her mother. TECHNIQUE: Craniocaudal and mediolateral oblique 3-D tomosynthesis images were obtained and synthetic 2-D images were generated. CAD analysis was submitted and interpreted. COMPARISON: 02/16/2021, 02/11/2020 BREAST PARENCHYMAL COMPOSITION: The breasts are heterogeneously dense, which may obscure small masses . FINDINGS: Scattered benign-appearing calcifications are present. No suspicious mass, calcification, o r architectural distortion are identified in either breast to suggest malignancy. There has been no s uspicious interval change. IMPRESSION: 1. No mammographic evidence of malignancy. 2. Recommend routine screening mammography in one year. BI-RADS Category 2: Benign finding(s). Reviewed, dictated and finalized at location A. TEGY DIRECTOR
== END 2022-02-23 13:19 | disposition home or self-care (01) ==
LOC: CHSIMG 13:19
PROVIDERS: PCP Family Medicine; Visit Provider Family Medicine
DX: Z12.31 Encounter for screening mammogram for malignant neoplasm of breast (principal)
CPT/HCPCS: 77063; 77067

== ENCOUNTER 2022-03-10 12:04 | Outpatient (CLI) | payer MEDICARE, SELFPAY ==
[2022-03-10 12:33] LABS: INR 1.6; Prothrombin Time 16.6 Seconds (9.50-12.10)
[2022-03-10 13:12] LABS: Alanine Aminotransferase 28 U/L (14-59); Albumin Level 3.5 g/dL (3.4-5.0); Alkaline Phosphatase 102 U/L (46-116); Anion Gap 7 mmol/L (8-16); Aspartate Amino Transferase 15 U/L (15-37); Bilirubin,Total 0.5 mg/dL (0.00-1.00); Blood Urea Nitrogen 22 mg/dL (7-18); Calcium 8.5 mg/dL (8.5-10.1); Carbon Dioxide 27 mmol/L (21-32); Chloride 104 mmol/L (98-108); Estimated Glomerular Filt Rate 41; Glucose 165 mg/dL (70-99); Osmolality Calculated 293 mOsm/kg (285-295); Potassium 4.7 mmol/L (3.5-5.1); Sodium 138 mmol/L (136-145); Total Protein 6.4 g/dL (6.4-8.2)
== END 2022-03-10 12:05 | disposition home or self-care (01) ==
LOC: CHSLAB 12:07
PROVIDERS: Nurse Practitioner Family; PCP Family Medicine; Visit Provider Specialist
DX: D64.9 Anemia, unspecified (principal); I48.91 Unspecified atrial fibrillation; E11.65 Type 2 diabetes mellitus with hyperglycemia; Z79.4 Long term (current) use of insulin; I10 Essential (primary) hypertension; Z00.00 Encounter for general adult medical examination without abnormal findings
CPT/HCPCS: 36415; 80053; 85610

== ENCOUNTER 2022-03-16 11:39 | Outpatient (RCR) | payer MEDICARE, SELFPAY ==
[2022-01-06 11:17] LABS: Prothrombin Time 20.4 Seconds (9.50-12.10)
[2022-02-02 12:03] LABS: INR 1.6; Prothrombin Time 16.9 Seconds (9.50-12.10)
[2022-02-09 12:55] LABS: Prothrombin Time 21.1 Seconds (9.50-12.10)
[2022-03-16 12:12] LABS: INR 2.6; Prothrombin Time 26.6 Seconds (9.50-12.10)
== END 2022-04-06 23:59 | disposition home or self-care (01) ==
LOC: CHSLAB 11:39
PROVIDERS: PCP Family Medicine; Visit Provider Specialist
DX: I48.91 Unspecified atrial fibrillation (principal)
CPT/HCPCS: 36415; 85610

== ENCOUNTER 2022-04-19 13:46 | Outpatient (CLI) | payer MEDICARE, SELFPAY ==
--- NOTE | ~2022-04-19 | US_ITS ---
EXAMINATION: US venous doppler [facility] DATE: 04/19/2022 14:39 INDICATION: Right lower limb pain. TECHNIQUE: Grayscale ultrasound images without and with compression and Doppler ultrasound images of the bilateral lower extremity veins were obtained. COMPARISON: 07/27/2018 FINDINGS: The visualized portions of right common femoral vein, profunda (deep) femoral vein, femoral vein, pop liteal vein, posterior tibial veins, peroneal veins, gastrocnemius vein and greater saphenous vein ou tflow are patent. 2.2 x 0.9 x 1.9 cm Ontiveros cyst at the right popliteal fossa. The visualized portions of left common femoral vein, profunda femoral vein, femoral vein, popliteal v ein, posterior tibial veins, peroneal veins, gastrocnemius vein and greater saphenous vein outflow ar e patent. 1.9 x 1.6 x 1.4 cm Ontiveros cyst at the left popliteal fossa. IMPRESSION: 1. No deep venous thrombosis in either lower limb. 2. Small bilateral Ontiveros's cysts. Reviewed, dictated and finalized at location L. OTYPE OPERATOR
== END 2022-04-19 13:47 | disposition home or self-care (01) ==
PROVIDERS: PCP Family Medicine; Visit Provider Physician Assistant
DX: M79.604 Pain in right leg (principal); Z86.718 Personal history of other venous thrombosis and embolism; M71.22 Synovial cyst of popliteal space [Baker], left knee; M71.21 Synovial cyst of popliteal space [Baker], right knee
CPT/HCPCS: 93970

== ENCOUNTER 2022-06-29 14:00 | Outpatient (CLI) | payer MEDICARE, SELFPAY ==
--- NOTE | ~2022-06-29 | XR_ITS ---
EXAMINATION: XR knee RT 3V DATE: 06/29/2022 14:21 INDICATION: Right knee pain TECHNIQUE: Three views of the right knee were obtained. COMPARISON: None. FINDINGS: Alignment is normal. No fracture or osteochondral lesion. There is moderate tricompartmenta l osteoarthritis of the knee. No joint effusion/synovitis. Surgical clips are noted in the medial so ft tissues of the leg, likely related to graft harvesting given evidence of CABG on chest radiograph. Calcified atherosclerosis is noted. IMPRESSION: 1. Moderate osteoarthritis of the knee. Reviewed, dictated and finalized at location B.
== END 2022-06-29 14:01 | disposition home or self-care (01) ==
PROVIDERS: PCP Family Medicine; Visit Provider Physician Assistant
DX: M17.11 Unilateral primary osteoarthritis, right knee (principal)
CPT/HCPCS: 73562

== ENCOUNTER 2022-07-07 10:45 | Outpatient (RCR) | payer MEDICARE, SELFPAY ==
[2022-04-13 11:56] LABS: INR 4.9; Prothrombin Time 47.1 Seconds (9.50-12.10)
[2022-04-21 10:57] LABS: INR 3.5; Prothrombin Time 34.4 Seconds (9.50-12.10)
[2022-04-28 12:40] LABS: INR 2.1; Prothrombin Time 21.5 Seconds (9.50-12.10)
[2022-05-25 11:55] LABS: INR 2.3
[2022-06-29 12:53] LABS: INR 1.6; Prothrombin Time 17.1 Seconds (9.50-12.10)
[2022-07-07 11:10] LABS: INR 2.8; Prothrombin Time 28.2 Seconds (9.50-12.10)
== END 2022-07-12 23:59 | disposition home or self-care (01) ==
LOC: CHSLAB 10:45
PROVIDERS: PCP Family Medicine; Visit Provider Specialist
DX: I48.91 Unspecified atrial fibrillation (principal)
CPT/HCPCS: 36415; 85610

== ENCOUNTER 2022-11-18 17:17 | Outpatient (CLI) | payer MEDICARE, SELFPAY ==
[2022-11-18 18:13] LABS: Creatinine Urine 442.87 mg/dL (40-278)
[2022-11-18 18:15] LABS: MALB Creatinine Ratio 90.3 mg/g (0-30); Microalbumin Urine Random > 400.0 mg/L
[2022-11-18 18:42] LABS: Alanine Aminotransferase 26 U/L (14-59); Albumin Level 3.4 g/dL (3.4-5.0); Alkaline Phosphatase 95 U/L (46-116); Anion Gap 10 mmol/L (8-16); Aspartate Amino Transferase 14 U/L (15-37); Bilirubin,Total 0.4 mg/dL (0.00-1.00); Blood Urea Nitrogen 22 mg/dL (7-18); Calcium 8.4 mg/dL (8.5-10.1); Carbon Dioxide 25 mmol/L (21-32); Chloride 104 mmol/L (98-108); Cholesterol 146 mg/dL (0-200); Estimated Glomerular Filt Rate 28; Free T4 Free Thyroxine 0.95 ng/dL (0.76-1.46); Glucose 175 mg/dL (70-99); HDL Direct 33 mg/dL (40-60); LDL Cholesterol Calculated 45 mg/dL (<130); Osmolality Calculated 295 mOsm/kg (285-295); Potassium 5.3 mmol/L (3.5-5.1); Sodium 139 mmol/L (136-145); Total Protein 6.4 g/dL (6.4-8.2); Triglycerides 342 mg/dL (0-150); Vitamin B12 1314 pg/mL (193-986)
[2022-11-24 20:59] LABS: Vitamin D 25 Hydroxy 20 ng/mL (30-100)
== END 2022-11-18 17:18 | disposition home or self-care (01) ==
LOC: CHSLAB 17:20
PROVIDERS: PCP Family Medicine; Visit Provider Nurse Practitioner Family
DX: E78.5 Hyperlipidemia, unspecified (principal); N18.9 Chronic kidney disease, unspecified; E55.9 Vitamin D deficiency, unspecified; R79.89 Other specified abnormal findings of blood chemistry
CPT/HCPCS: 36415; 80053; 80061; 82043; 82306; 82607; 84439

== ENCOUNTER 2022-12-01 12:05 | Outpatient (RCR) | payer MEDICARE, SELFPAY ==
[2022-09-08 13:07] LABS: INR 3.1; Prothrombin Time 31.6 Seconds (9.64-11.0)
[2022-11-02 12:56] LABS: INR 4.4; Prothrombin Time 43.7 Seconds (9.50-12.10)
[2022-11-17 12:25] LABS: Prothrombin Time 60.4 Seconds (9.50-12.10)
[2022-11-17 12:43] LABS: INR 6.3
[2022-11-24 14:57] LABS: Prothrombin Time 50.1 Seconds (9.50-12.10)
[2022-11-24 15:00] LABS: INR 4.9
[2022-12-01 12:30] LABS: INR 2.5; Prothrombin Time 26.1 Seconds (9.50-12.10)
== END 2022-12-06 23:59 | disposition home or self-care (01) ==
LOC: CHSLAB 12:05
PROVIDERS: PCP Family Medicine; Visit Provider Specialist
DX: I48.91 Unspecified atrial fibrillation (principal)
CPT/HCPCS: 36415; 85610

== ENCOUNTER 2022-12-08 11:35 | Outpatient (CLI) | payer MEDICARE, SELFPAY ==
[2022-12-08 11:51] LABS: Basophils Absolute Auto 0.06 K/mm3 (0.00-0.10); Basophils Percent Auto 1.1 % (0.0-1.0); Eosinophils Absolute Auto 0.37 K/mm3 (0.02-0.50); Eosinophils Percent Auto 6.9 % (1.0-6.0); Hematocrit 35.4 % (35.0-42.0); Hemoglobin 11.7 g/dL (11.7-13.8); Immature Granulocyte Absolute 0.01 K/mm3 (0.00-0.00); Immature Granulocyte Percent A 0.2 % (0.0-0.0); Lymphocytes Absolute Auto 1.21 K/mm3 (1.10-4.50); Lymphocytes Percent Auto 22.4 % (18.0-42.0); Mean Corpuscular HGB Conc 33.1 g/dL (32.0-36.0); Mean Corpuscular Hemoglobin 31.5 pg (27.0-31.0); Mean Corpuscular Volume 95.2 fL (78.0-102.0); Mean Platelet Volume 9.5 fl (9.2-11.8); Monocytes Absolute Auto 0.39 K/mm3 (0.10-0.90); Monocytes Percent Auto 7.2 % (2.0-11.0); Neutrophils Absolute Auto 3.4 K/mm3 (1.7-7.2); Neutrophils Percent Auto 62.2 % (50.0-70.0); Platelet Count Result 220 K/mm3 (150-420); Red Blood Count 3.72 M/mm3 (4.20-5.40); Red Cell Distribution Width 12.9 % (11.6-14.4); White Blood Count 5.4 K/mm3 (4.8-10.8)
[2022-12-08 11:52] LABS: Appearance Urine Clear (Clear); Bilirubin Urine 1+ (Negative); Blood Urine Negative (Negative); Color Urine Yellow (Yellow); Glucose Urine UA Negative (Negative); Ketones Urine Trace (Negative); Leukocyte Esterase Ur Negative (Negative); Nitrate Urine Negative (Negative); Protein Urine 2+ (Negative); Specific Grav Ur >= 1.030 (1.010-1.020); pH Urine 5.5 (5.0-8.0)
[2022-12-08 12:11] LABS: Add Urine Microscopic? YES; Bacteria Urine 1+ /hpf; RBC Urine 0-2 /hpf (0-2); Squamous Epithelial Cell Urine Few /hpf (Few); WBC Urine 0-3 /hpf (0-3)
[2022-12-08 12:34] LABS: Alanine Aminotransferase 23 U/L (14-59); Albumin Level 3.2 g/dL (3.4-5.0); Alkaline Phosphatase 88 U/L (46-116); Anion Gap 7 mmol/L (8-16); Aspartate Amino Transferase 13 U/L (15-37); Bilirubin,Total 0.5 mg/dL (0.00-1.00); Blood Urea Nitrogen 20 mg/dL (7-18); Calcium 8.6 mg/dL (8.5-10.1); Carbon Dioxide 26 mmol/L (21-32); Chloride 104 mmol/L (98-108); Cholesterol 133 mg/dL (0-200); Estimated Glomerular Filt Rate 41; Ferritin 141 ng/mL (8-252); Glucose 299 mg/dL (70-99); HDL Direct 36 mg/dL (40-60); Iron 70 ug/dL (50-170); LDL Cholesterol Calculated 65 mg/dL (<130); Osmolality Calculated 297 mOsm/kg (285-295); Percent Iron Saturation 28 % (12-57); Sodium 137 mmol/L (136-145); Thyroid Stimulating Hormone 1.55 uIU/mL (0.36-3.74); Total Protein 6.1 g/dL (6.4-8.2); Triglycerides 161 mg/dL (0-150)
== END 2022-12-08 11:36 | disposition home or self-care (01) ==
LOC: CHSLAB 11:36
PROVIDERS: PCP Family Medicine; Visit Provider Physician Assistant
DX: D64.9 Anemia, unspecified (principal); E11.22 Type 2 diabetes mellitus with diabetic chronic kidney disease; E78.5 Hyperlipidemia, unspecified; F32.9 Major depressive disorder, single episode, unspecified; I10 Essential (primary) hypertension; I25.10 Atherosclerotic heart disease of native coronary artery without angina pectoris; N18.9 Chronic kidney disease, unspecified; M25.561 Pain in right knee
CPT/HCPCS: 36415; 80053; 80061; 81001; 82728; 83540; 83550; 84443; 85025

== ENCOUNTER 2023-02-24 13:59 | Outpatient (CLI) | payer MEDICARE, SELFPAY ==
--- NOTE | ~2023-02-24 | MM_ITS ---
EXAMINATION: MM screening magdi BI w peggy HISTORY: Screening mammogram TECHNIQUE: Craniocaudal and mediolateral oblique 3-D tomosynthesis images were obtained and synthetic 2-D images were generated. CAD analysis was submitted and interpreted. COMPARISON: 02/23/2022, 02/16/2021, 02/11/2020 bilateral screening mammogram examinations BREAST PARENCHYMAL COMPOSITION: The breasts are heterogeneously dense, which may obscure small masses . FINDINGS: Stable fibroglandular asymmetry, more prominent on the left. Scattered bilateral benign jason cifications. Stable bilateral small circumscribed axillary tail lymph nodes. There is no evidence of suspicious mass, calcification, or architectural distortion to suggest malignancy in either breast. T here has been no suspicious interval change. IMPRESSION: 1. No mammographic evidence of malignancy. 2. Recommend routine screening mammography in one year. BI-RADS Category 2: Benign finding(s). Reviewed, dictated and finalized at location A. OPERATOR
== END 2023-02-24 14:00 | disposition home or self-care (01) ==
LOC: CHSIMG 14:01
PROVIDERS: PCP Family Medicine; Visit Provider Family Medicine
DX: Z12.31 Encounter for screening mammogram for malignant neoplasm of breast (principal)
CPT/HCPCS: 77063; 77067

== ENCOUNTER 2023-03-25 12:22 | Outpatient (RCR) | payer MEDICARE, SELFPAY ==
[2023-01-05 19:15] LABS: INR 1.5; Prothrombin Time 16.3 Seconds (9.50-12.10)
[2023-01-12 12:07] LABS: INR 1.7
[2023-01-19 13:19] LABS: INR 1.8; Prothrombin Time 18.8 Seconds (9.50-12.10)
[2023-02-02 16:56] LABS: INR 1.7; Prothrombin Time 17.6 Seconds (9.50-12.10)
[2023-03-25 12:46] LABS: INR 2.4; Prothrombin Time 24.5 Seconds (9.50-12.10)
== END 2023-04-05 23:59 | disposition home or self-care (01) ==
LOC: CHSLAB 12:22
PROVIDERS: PCP Family Medicine; Visit Provider Specialist
DX: I48.91 Unspecified atrial fibrillation (principal)
CPT/HCPCS: 36415; 85610

== ENCOUNTER 2023-05-25 12:15 | Outpatient (CLI) | payer MEDICARE, SELFPAY ==
--- NOTE | ~2023-05-25 | US_ITS ---
. EXAMINATION: US soft tissue head and neck DATE: 05/25/2023 12:35 INDICATION: Right neck mass. TECHNIQUE: Multiple grayscale and Doppler ultrasound images of the head and neck were obtained. COMPARISON: None FINDINGS: There is a 3.7 x 2.9 x 2.4 cm mixed cystic and solid mass with calcifications in right paro tid gland. IMPRESSION: 1. 3.7 cm mass in right parietal gland. The differential diagnosis includes benign mixed tumor, Warth in tumor, and less likely zarina metastatic disease or primary malignancy. Ultrasound-guided fine-need le aspiration is recommended. Reviewed, dictated and finalized at location A. CHER IMPRESSION: 1. 3.7 cm mass in right parietal gland. The differential diagnosis includes nia ign mixed tumor, Warthin tumor, and less likely zarina metastatic disease or marzena ritchie malignancy. Ultrasound-guided fine-needle aspiration is recommended.
== END 2023-05-25 12:16 | disposition home or self-care (01) ==
PROVIDERS: PCP Family Medicine; Visit Provider Nurse Practitioner Family
DX: R22.1 Localized swelling, mass and lump, neck (principal); I89.8 Other specified noninfective disorders of lymphatic vessels and lymph nodes
CPT/HCPCS: 76536

== ENCOUNTER 2023-06-29 14:42 | Outpatient (RCR) | payer MEDICARE, SELFPAY ==
[2023-04-27 14:13] LABS: INR 1.6; Prothrombin Time 16.9 Seconds (9.50-12.10)
[2023-05-08 15:30] LABS: INR 2.5; Prothrombin Time 25.2 Seconds (9.50-12.10)
[2023-06-07 15:12] LABS: INR 3.3; Prothrombin Time 33.4 Seconds (9.50-12.1)
[2023-06-29 15:22] LABS: INR 4.3; Prothrombin Time 42.6 Seconds (9.50-12.1)
== END 2023-07-26 23:59 | disposition home or self-care (01) ==
LOC: CHSLAB 14:42
PROVIDERS: PCP Family Medicine; Visit Provider Specialist
DX: I48.91 Unspecified atrial fibrillation (principal)
CPT/HCPCS: 36415; 85610

== ENCOUNTER 2023-07-13 12:22 | Outpatient (CLI) | payer MEDICARE, SELFPAY ==
--- NOTE | ~2023-07-13 | US_ITS ---
EXAMINATION: US FNA w image guidance DATE: 07/13/2023 14:16 INDICATION: Other diseases of salivary gland with right parotid nodule COMPARISON: 05/25/2023 TECHNIQUE: A time-out was performed to verify the patient's name, date of , and procedure to be performed . The procedure and its benefits and risks were discussed with the patient. Risks specifically discus sed included bleeding and infection. The patient understood the risks and agreed to proceed. The neck was prepped and draped in the usual sterile manner. 5 mL 1% lidocaine was used for local anesthesia . 6 passes were made with a 25G needle into the lesion. Appropriate needle location was documented with continuous sonographic guidance. A sterile bandage was applied. There were no immediate compli cations. FINDINGS: Grayscale ultrasound images demonstrate biopsy needles advanced into the solid components of a 3.7 x 2.6 x 2.4 cm mixed solid and cystic left parotid mass. IMPRESSION: 1. Successful ultrasound-guided fine needle aspiration of the 3.7 cm mixed solid and cystic left par otid mass of concern. Reviewed, dictated and finalized at location A. IMPRESSION: 1. Successful ultrasound-guided fine needle aspiration of the 3.7 cm mixed damion id and cystic left parotid mass of concern.
== END 2023-07-13 12:23 | disposition home or self-care (01) ==
LOC: ANHIMG 12:22
PROVIDERS: PCP Family Medicine; Visit Provider Nurse Practitioner Family
DX: K11.8 Other diseases of salivary glands (principal); R22.1 Localized swelling, mass and lump, neck
CPT/HCPCS: 10005; 88108; 88305

== ENCOUNTER 2023-07-22 08:13 | Outpatient (CLI) | payer MEDICARE, SELFPAY ==
[2023-07-22 08:56] LABS: Alanine Aminotransferase 30 U/L (14-59); Albumin Level 3.2 g/dL (3.4-5.0); Alkaline Phosphatase 92 U/L (46-116); Anion Gap 8 mmol/L (4-12); Aspartate Amino Transferase 19 U/L (15-37); Bilirubin,Total 0.4 mg/dL (0.00-1.00); Blood Urea Nitrogen 16 mg/dL (7-18); Calcium 8.5 mg/dL (8.5-10.1); Carbon Dioxide 29 mmol/L (21-32); Chloride 105 mmol/L (98-108); Estimated Glomerular Filt Rate 46; Glucose 132 mg/dL (70-99); Osmolality Calculated 297 mOsm/kg (285-295); Potassium 5.1 mmol/L (3.5-5.1); Sodium 142 mmol/L (136-145); Total Protein 6.3 g/dL (6.4-8.2)
== END 2023-07-22 08:14 | disposition home or self-care (01) ==
PROVIDERS: PCP Family Medicine; Visit Provider Physician Assistant
DX: I10 Essential (primary) hypertension (principal)
CPT/HCPCS: 36415; 80053

== ENCOUNTER 2023-08-02 11:33 | Outpatient (CLI) | payer MEDICARE, SELFPAY ==
[2023-08-02 12:10] LABS: Basophils Absolute Auto 0.05 K/mm3 (0.00-0.10); Eosinophils Absolute Auto 0.27 K/mm3 (0.02-0.50); Eosinophils Percent Auto 5.2 % (1.0-6.0); Hematocrit 37.9 % (35.0-42.0); Hemoglobin 12.3 g/dL (11.7-13.8); Immature Granulocyte Absolute 0.02 K/mm3 (0.00-0.00); Immature Granulocyte Percent A 0.4 % (0.0-0.0); Lymphocytes Absolute Auto 1.31 K/mm3 (1.10-4.50); Lymphocytes Percent Auto 25.2 % (18.0-42.0); Mean Corpuscular HGB Conc 32.5 g/dL (32-36); Mean Corpuscular Hemoglobin 30.9 pg (27.0-31.0); Mean Corpuscular Volume 95.2 fL (78.0-102.0); Mean Platelet Volume 9.1 fl (9.2-11.8); Monocytes Absolute Auto 0.31 K/mm3 (0.10-0.90); Neutrophils Absolute Auto 3.24 K/mm3 (1.70-7.20); Neutrophils Percent Auto 62.2 % (50.0-70.0); Platelet Count Result 219 K/mm3 (150-420); Red Blood Count 3.98 M/mm3 (4.20-5.40); White Blood Count 5.2 K/mm3 (4.8-10.8)
[2023-08-02 12:24] LABS: Prothrombin Time 21.3 Seconds (9.50-12.1)
[2023-08-02 12:42] LABS: Potassium 5.2 mmol/L (3.5-5.1)
== END 2023-08-02 11:34 | disposition home or self-care (01) ==
PROVIDERS: PCP Family Medicine; Visit Provider Otolaryngology
DX: I48.91 Unspecified atrial fibrillation (principal); Z01.89 Encounter for other specified special examinations
CPT/HCPCS: 36415; 84132; 85025; 85610

== ENCOUNTER 2023-08-09 10:23 | Emergency (ER) | payer MEDICARE, SELFPAY ==
[2023-08-09] VITALS (7 sets, daily range): BP systolic 150–171; BP diastolic 63–76; PULSE 53–85; RESP 18–20; TEMP 36.6; O2SAT 95–100
--- NOTE | ~2023-08-09 | XR_ITS ---
Portable chest x-ray Comparison: 04/09/2020 Clinical History: Shortness of breath Findings: Lungs are clear, without focal consolidation or pleural effusion. Cardiomediastinal silho uette is stable, status post CABG. Bones and soft tissues are unremarkable. Impression: Clear lungs. Reviewed, dictated and finalized at location . Impression: Clear lungs.
--- NOTE | 2023-08-09 10:25 | ED.URI ---
HPI - URI/Sore Throat General Chief Complaint: Shortness of Breath/Dyspnea Stated Complaint: wheezing/cough Time Seen by Provider: 08/09/23 10:24 Source: patient Mode of arrival: ambulatory Limitations: no limitations History of Present Illness HPI Narrative: 82-year-old female with a history of anxiety, diabetes mellitus, dyslipidemia, hypertension, CAD status post CABG, diastolic CHF, PE,CKD with a baseline creatinine of 1.5 presents to the ER with a 2 week history of -- nonproductive cough -- worsening shortness of breath. Her shortness of breath predominantly comes on with activity. patient has dyspnea on exertion. No paroxysmal nocturnal dyspnea. the patient denies using any inhalers. No fever or chills. No chest pain. No leg swelling. No upper respiratory symptoms. the patient has a right parotid mass for which she was scheduled for surgery yesterday. On presentation for surgery the patient was noted to have bilateral wheezing. The patient had a chest x-ray which is unremarkable. Her surgery was canceled. MD elicited complaint: cough Onset (ago): week(s) ( Two weeks) Consistency: intermittent Severity: moderate Description of mucous: clear Able to tolerate fluids by mouth: Yes Exacerbating factors: exertion Relieving factors: rest Associated symptoms: cough and shortness of breath Treatments prior to arrival: none Related Data Home Medications Medication Instructions Recorded Confirmed aspirin 81 mg tablet,delayed 81 mg PO DAILY 06/05/19 08/09/23 release loratadine 10 mg tablet 10 mg PO DAILY 09/11/19 08/09/23 warfarin 2 mg tablet 6 mg PO DAILY 09/11/19 08/09/23 metoprolol tartrate 25 mg tablet 25 mg PO BID 07/25/23 08/09/23 amlodipine 10 mg tablet 10 mg PO DAILY 08/09/23 08/09/23 atorvastatin 40 mg tablet 40 mg PO DAILY 08/09/23 08/09/23 latanoprost 0.005 % eye drops 1 drp EACH EYE HS 08/09/23 08/09/23 metformin 500 mg tablet 500 mg PO BID 08/09/23 08/09/23 warfarin 4 mg tablet 4 mg PO WEEKLY 08/09/23 08/09/23 Allergies Allergy/AdvReac Type Severity Reaction Status Date / Time No Known Allergies Allergy Verified 08/09/23 10:36 Review of Systems Review of Systems: All systems reviewed & are unremarkable except as noted in HPI and below Constitutional: Constitutional: Reports as per HPI and Reports no additional constitutional complaints Eyes: Eyes: Reports as per HPI and Reports no additional eye complaints ENT: Reports system reviewed and no additional complaints, except as documented and Reports as per HPI Cardiovascular: Cardiovascular: Reports as per HPI and Reports no additional cardiovascular complaints Respiratory: Respiratory: Reports as per HPI, Reports no additional respiratory complaints, Reports cough, Reports dyspnea and Reports wheezing Gastrointestinal: Gastrointestinal: Reports as per HPI and Reports no additional gastrointestinal complaints Genitourinary: Genitourinary: Reports no additional female genitourinary complaints and Reports as per HPI Musculoskeletal: Musculoskeletal: Reports no additional musculoskeletal complaints and Reports back pain Integumentary/Breasts: Skin/Breast: Reports system reviewed and no additional complaints, except as docu and Reports as per HPI Neurologic: Reports system reviewed and no additional complaints, except as documented and Reports as per HPI Psychiatric: Psychiatric: Reports no additional psychiatric complaints, Reports as per HPI and Reports anxiety Endocrine: Endocrine: Reports no additional endocrine complaints, Reports as per HPI and Reports polyuria Hematologic/Lymphatic: Hematologic/Lymphatic: Reports no additional hematologic/lymphatic complaints and Reports as per HPI Allergic/Immunologic: Allergic/Immunologic: Reports no additional allergic/immunologic complaints and Reports as per HPI PMFSH Past Medical History Medical History Anxiety Arthritis Back pain Cataracts,
--- NOTE | 2023-08-09 10:45 | ECG_ITS ---
SEE SCANNED COPY FOR CONFIRMED REPORT MTDD
[2023-08-09] MEDS: IPRATROPIUM 0.5 MG/ALBUTEROL SULFATE 2.5 MG AMPUL.NEB 3 ML INHALATION (11:07)
[2023-08-09 11:11] LABS: Basophils Absolute Auto 0.05 K/mm3 (0.00-0.10); Basophils Percent Auto 0.9 % (0.0-1.0); Eosinophils Absolute Auto 0.28 K/mm3 (0.02-0.50); Eosinophils Percent Auto 5.2 % (1.0-6.0); Hematocrit 35.2 % (35.0-42.0); Hemoglobin 11.3 g/dL (11.7-13.8); Immature Granulocyte Absolute 0.01 K/mm3 (0.00-0.00); Immature Granulocyte Percent A 0.2 % (0.0-0.0); Lymphocytes Absolute Auto 1.12 K/mm3 (1.10-4.50); Lymphocytes Percent Auto 20.9 % (18.0-42.0); Mean Corpuscular HGB Conc 32.1 g/dL (32-36); Mean Corpuscular Hemoglobin 30.2 pg (27.0-31.0); Mean Corpuscular Volume 94.1 fL (78.0-102.0); Mean Platelet Volume 9.4 fl (9.2-11.8); Monocytes Absolute Auto 0.38 K/mm3 (0.10-0.90); Monocytes Percent Auto 7.1 % (2.0-11.0); Neutrophils Absolute Auto 3.51 K/mm3 (1.70-7.20); Neutrophils Percent Auto 65.7 % (50.0-70.0); Platelet Count Result 197 K/mm3 (150-420); Red Blood Count 3.74 M/mm3 (4.20-5.40); Red Cell Distribution Width 13.2 % (11.6-14.4); White Blood Count 5.4 K/mm3 (4.8-10.8)
[2023-08-09 11:25] LABS: Prothrombin Time 11.4 Seconds (9.50-12.1)
[2023-08-09 11:29] LABS: SARS-CoV-2 RNA PCR Negative (Negative)
[2023-08-09 11:32] LABS: Lactic Acid Reflex 1.8 mmol/L (0.4-2.0)
[2023-08-09 11:32] LABS: Influenza A QL RT-PCR Negative (Negative); Influenza B QL RT-PCR Negative (Negative); RSV RNA, RT-PCR Negative (Negative)
[2023-08-09 11:33] LABS: Alanine Aminotransferase 26 U/L (14-59); Albumin Level 3.1 g/dL (3.4-5.0); Alkaline Phosphatase 81 U/L (46-116); Anion Gap 11 mmol/L (4-12); Aspartate Amino Transferase 14 U/L (15-37); Bilirubin,Total 0.5 mg/dL (0.00-1.00); Blood Urea Nitrogen 17 mg/dL (7-18); Calcium 8.2 mg/dL (8.5-10.1); Carbon Dioxide 23 mmol/L (21-32); Chloride 104 mmol/L (98-108); Estimated CRCL calculation 31 ml/min; Estimated Glomerular Filt Rate 39; Glucose 303 mg/dL (70-99); NT Pro B Type Natriuretic Pept 1107 pg/mL (0-450); Osmolality Calculated 298 mOsm/kg (285-295); Potassium 4.3 mmol/L (3.5-5.1); Sodium 138 mmol/L (136-145); Troponin I 6.4 ng/L (0.00-60.4)
[2023-08-09] MEDS: FUROSEMIDE 20 MG TABLET PO (12:39)
== END 2023-08-09 12:59 | disposition home or self-care (01) ==
PROVIDERS: Emergency Provider Internal Medicine Critical Care Medicine; PCP Family Medicine
DX: I13.0 Hypertensive heart and chronic kidney disease with heart failure and stage 1 through stage 4 chronic kidney disease, or unspecified chronic kidney disease (principal); I50.33 Acute on chronic diastolic (congestive) heart failure; E13.65 Other specified diabetes mellitus with hyperglycemia; E78.5 Hyperlipidemia, unspecified; I25.10 Atherosclerotic heart disease of native coronary artery without angina pectoris; I50.30 Unspecified diastolic (congestive) heart failure; E13.22 Other specified diabetes mellitus with diabetic chronic kidney disease; N18.32 Chronic kidney disease, stage 3b; F41.9 Anxiety disorder, unspecified; I25.2 Old myocardial infarction; H40.9 Unspecified glaucoma; Z20.822 Contact with and (suspected) exposure to COVID-19; Z95.1 Presence of aortocoronary bypass graft; Z86.711 Personal history of pulmonary embolism; Z79.82 Long term (current) use of aspirin; Z79.01 Long term (current) use of anticoagulants; Z79.84 Long term (current) use of oral hypoglycemic drugs; F32.A Depression, unspecified; Z87.891 Personal history of nicotine dependence
CPT/HCPCS: 36415; 71045; 80053; 83605; 83880; 84484; 85025; 85610; 87637; 93005; 94640; 99284; A9270

== ENCOUNTER 2023-09-09 12:29 | Outpatient (CLI) | payer MEDICARE, SELFPAY ==
[2023-09-09 13:56] LABS: Anion Gap 9 mmol/L (4-12); Blood Urea Nitrogen 20 mg/dL (7-18); Calcium 8.6 mg/dL (8.5-10.1); Carbon Dioxide 24 mmol/L (21-32); Chloride 105 mmol/L (98-108); Estimated Glomerular Filt Rate 42; Glucose 192 mg/dL (70-99); Osmolality Calculated 293 mOsm/kg (285-295); Potassium 4.9 mmol/L (3.5-5.1); Sodium 138 mmol/L (136-145)
== END 2023-09-09 12:30 | disposition home or self-care (01) ==
PROVIDERS: PCP Family Medicine; Visit Provider Physician Assistant
DX: N18.9 Chronic kidney disease, unspecified (principal)
CPT/HCPCS: 36415; 80048

== ENCOUNTER 2023-10-23 15:11 | Outpatient (CLI) | payer MEDICARE, SELFPAY ==
[2023-10-23 15:23] LABS: Basophils Absolute Auto 0.04 K/mm3 (0.00-0.10); Basophils Percent Auto 0.6 % (0.0-1.0); Eosinophils Absolute Auto 0.28 K/mm3 (0.02-0.50); Eosinophils Percent Auto 4.3 % (1.0-6.0); Hemoglobin 11.7 g/dL (11.7-13.8); Immature Granulocyte Absolute 0.02 K/mm3 (0.00-0.00); Immature Granulocyte Percent A 0.3 % (0.0-0.0); Lymphocytes Absolute Auto 1.83 K/mm3 (1.10-4.50); Lymphocytes Percent Auto 28.1 % (18.0-42.0); Mean Corpuscular HGB Conc 33.4 g/dL (32-36); Mean Corpuscular Hemoglobin 31.1 pg (27.0-31.0); Mean Corpuscular Volume 93.1 fL (78.0-102.0); Monocytes Absolute Auto 0.35 K/mm3 (0.10-0.90); Monocytes Percent Auto 5.4 % (2.0-11.0); Neutrophils Percent Auto 61.3 % (50.0-70.0); Platelet Count Result 246 K/mm3 (150-420); Red Blood Count 3.76 M/mm3 (4.20-5.40); Red Cell Distribution Width 12.5 % (11.6-14.4); White Blood Count 6.5 K/mm3 (4.8-10.8)
[2023-10-23 15:39] LABS: INR 1.3; Prothrombin Time 13.9 Seconds (9.50-12.1)
[2023-10-23 16:17] LABS: Potassium 6.1 mmol/L (3.5-5.1)
== END 2023-10-23 15:12 | disposition home or self-care (01) ==
LOC: CHSLAB 15:13
PROVIDERS: PCP Family Medicine; Visit Provider Otolaryngology
DX: Z01.89 Encounter for other specified special examinations (principal); Z79.01 Long term (current) use of anticoagulants
CPT/HCPCS: 36415; 84132; 85025; 85610

== ENCOUNTER 2023-11-16 16:09 | Outpatient (RCR) | payer MEDICARE, SELFPAY ==
[2023-08-31 14:08] LABS: Prothrombin Time 30.4 Seconds (9.50-12.1)
[2023-10-02 15:04] LABS: INR 3.5; Prothrombin Time 35.1 Seconds (9.50-12.1)
[2023-11-16 16:33] LABS: INR 2.3; Prothrombin Time 23.4 Seconds (9.50-12.1)
== END 2023-11-29 23:59 | disposition home or self-care (01) ==
LOC: CHSLAB 16:09
PROVIDERS: PCP Family Medicine; Visit Provider Specialist
DX: I48.91 Unspecified atrial fibrillation (principal)
CPT/HCPCS: 36415; 85610

== ENCOUNTER 2023-12-11 15:02 | Outpatient (CLI) | payer MEDICARE, SELFPAY ==
[2023-12-11 16:05] LABS: INR 3.2; Prothrombin Time 32.5 Seconds (9.50-12.1)
== END 2023-12-11 15:03 | disposition home or self-care (01) ==
PROVIDERS: PCP Family Medicine; Visit Provider Specialist
DX: I48.91 Unspecified atrial fibrillation (principal)
CPT/HCPCS: 36415; 85610

== ENCOUNTER 2024-01-08 13:46 | Outpatient (CLI) | payer MEDICARE, SELFPAY ==
[2024-01-08 14:02] LABS: Hemoglobin 11.5 g/dL (11.7-13.8); Mean Corpuscular HGB Conc 33.8 g/dL (32-36); Mean Corpuscular Hemoglobin 31.5 pg (27.0-31.0); Mean Corpuscular Volume 93.2 fL (78.0-102.0); Mean Platelet Volume 9.2 fl (9.2-11.8); Platelet Count Result 223 K/mm3 (150-420); Red Blood Count 3.65 M/mm3 (4.20-5.40); Red Cell Distribution Width 12.9 % (11.6-14.4); White Blood Count 5.9 K/mm3 (4.8-10.8)
[2024-01-08 14:09] LABS: Add Urine Microscopic? YES; Appearance Urine Clear (Clear); Bilirubin Urine 2+ (Negative); Blood Urine Negative (Negative); Color Urine Yellow (Yellow); Glucose Urine UA Negative (Negative); Ketones Urine 1+ (Negative); Leukocyte Esterase Ur Trace (Negative); Nitrate Urine Negative (Negative); Protein Urine 2+ (Negative); Specific Grav Ur >= 1.030 (1.010-1.020)
[2024-01-08 14:13] LABS: Bacteria Urine 1+ /hpf; Mucus Urine Few /lpf; RBC Urine 0-2 /hpf (0-2); Squamous Epithelial Cell Urine Moderate /hpf (Few); WBC Urine 0-3 /hpf (0-3)
[2024-01-08 14:15] LABS: INR 3.8; Prothrombin Time 38.1 Seconds (9.50-12.1)
[2024-01-08 14:40] LABS: Alanine Aminotransferase 32 U/L (14-59); Albumin Level 3.3 g/dL (3.4-5.0); Alkaline Phosphatase 109 U/L (46-116); Anion Gap 11 mmol/L (4-12); Aspartate Amino Transferase 19 U/L (15-37); Bilirubin,Total 0.3 mg/dL (0.00-1.00); Blood Urea Nitrogen 18 mg/dL (7-18); Calcium 8.4 mg/dL (8.5-10.1); Carbon Dioxide 24 mmol/L (21-32); Chloride 105 mmol/L (98-108); Cholesterol 150 mg/dL (0-200); Estimated Glomerular Filt Rate 35; Glucose 223 mg/dL (70-99); HDL Direct 39 mg/dL (40-60); LDL Cholesterol Calculated 63 mg/dL (<130); Osmolality Calculated 298 mOsm/kg (285-295); Potassium 4.8 mmol/L (3.5-5.1); Sodium 140 mmol/L (136-145); Thyroid Stimulating Hormone 2.06 uIU/mL (0.36-3.74); Total Protein 6.3 g/dL (6.4-8.2); Triglycerides 242 mg/dL (0-150)
[2024-01-09 11:28] LABS: Vitamin D 25 Hydroxy 33 ng/mL (30-100)
== END 2024-01-08 13:47 | disposition home or self-care (01) ==
LOC: CHSLAB 13:50
PROVIDERS: PCP Family Medicine; Visit Provider Physician Assistant
DX: E11.22 Type 2 diabetes mellitus with diabetic chronic kidney disease (principal); R79.89 Other specified abnormal findings of blood chemistry; D64.9 Anemia, unspecified; I10 Essential (primary) hypertension; J44.89 Other specified chronic obstructive pulmonary disease; R94.4 Abnormal results of kidney function studies; T17.308A Unspecified foreign body in larynx causing other injury, initial encounter; F32.9 Major depressive disorder, single episode, unspecified; I48.91 Unspecified atrial fibrillation; E55.9 Vitamin D deficiency, unspecified
CPT/HCPCS: 36415; 80053; 80061; 81001; 82306; 84443; 85027; 85610

== ENCOUNTER 2024-07-15 01:57 | Inpatient (IN) | payer MEDICARE, SELFPAY ==
[2024-07-15] VITALS (22 sets, daily range): BP systolic 143–187; BP diastolic 68–89; PULSE 61–110; RESP 18–24; TEMP 36.6–37.9; O2SAT 83–97; BMI 29.0
--- NOTE | 2024-07-15 | ECHO_ITS ---
Patient Info Name: Gill Kowalski Age: 83 years : 1940 Gender: Female Ht: 65 in Wt: 180 lbs BSA: 1.96 m2 HR: 87 bpm BP: 179 / 89 mmHg Heart Rhythm: Sinus Rhythm Technical Quality: Good Exam Date: 07/15/2024 1:46 PM Exam Location: Echo Lab Patient Status: Inpatient Admit Date: 07/15/2024 Staff Ordering Physician: Zhen Oliveira MD ([facility]) Green Chain Worker: Claire Ireland RDCS Attending Provider: Sean King MD Exam Type: CA echo dop color flow w con Study Info Indications - MILD AORTIC STENOSIS Complete two-dimensional, color flow and Doppler transthoracic echocardiogram is performed with contrast to opacify the left ventricle and to improve the deliniation of the left ventricle endocardial borders. Contrast/Agitated Saline Contrast/Ag. Saline: Definity Amount: 2.00 ml Administered By: Claire Ireland RDCS Existing IV Access: Yes History/Risk Factors Hypertension: Yes Dyslipidemia: No Congenital Heart Disease (CHD): No Diabetic Therapy: Oral, Insulin Peripheral Arterial Disease (PAD): No Myocardial Infarction (IL): Yes Chronic Lung Disease: No Obesity: Yes Renal Disease: No Coronary Artery Disease (CAD) Yes Congestive Heart Failure (CHF): No Diabetes Mellitus: Type II COPD: No Cerebrovascular Disease: No Family History: Diabetes Mellitus DVT Treatment: Warfarin Deep Vein Thrombosis (DVT): Chronic Dialysis: None Frailty Scale (CSHA): 3: Managing Well Summary 1. Left ventricular chamber dimension is normal. 2. Left ventricular systolic function is normal, estimated at 50-55%. 3. There is mildly increased left ventricular wall thickness. 4. The left ventricular diastolic function is grade I diastolic dysfunction. 5. Right ventricular systolic function is normal. 6. Left atrial chamber dimension is moderately enlarged. 7. There is moderate mitral valve regurgitation. 8. There is mild tricuspid valve regurgitation. Left Ventricle Left ventricular chamber dimension is normal. Left ventricular systolic function is normal, estimated at 50-55%. There is mildly increased left ventricular wall thickness. The left ventricular diastolic function is grade I diastolic dysfunction. Right Ventricle Right ventricular chamber dimension is normal. Right ventricular systolic function is normal. Left Atria Left atrial chamber dimension is moderately enlarged. Right Atria Right atrial chamber dimension is normal. Atrial Septum Intact interatrial septum visualized by color flow imaging. Aortic Valve The aortic valve is probable trileaflet. There is no aortic valve stenosis. There is no aortic valve regurgitation. There is mild aortic valve calcification. Pulmonic Valve The pulmonic valve is not well visualized. There is no pulmonic regurgitation. Mitral Valve There is moderate mitral valve regurgitation. The mitral valve annulus is mildly calcified. Tricuspid Valve There is mild tricuspid valve regurgitation. Pericardium/Pleural There is no pericardial effusion. Inferior Vena Cava Normal inferior vena cava with >50% collapse upon inspiration consistent with normal right atrial pressure, 3 mmHg. Aorta The aortic root size at the sinus of Valsalva is normal. Left Ventricular Outflow Tract Name Value Normal LVOT 2D LVOT Diameter 1.86 cm LVOT Doppler LVOT Peak Gradient 5 mmHg LVOT Mean Gradient 3 mmHg LVOT VTI 23.18 cm LVOT VTI/AV VTI Ratio 0.72 LVOT Stroke Volume 62.80 ml LVOT CO 5.32 l/min LVOT CI 2.72 L/min/m2 Pulmonic Valve Name Value Normal RVOT Doppler RVOT Peak Gradient 3 mmHg PV Doppler PV Peak Gradient 6 mmHg Mitral Valve Name Value Normal MV Doppler MV Decel Cataño 497.22 cm/s2 MV PHT 0 s MV Area (PHT) 4.02 cm2 4.00-5.00 MV Diastolic Function MV E Peak Velocity 93.77 cm/s MV A Peak Velocity 87.04 cm/s MV E/A 1.08 MV Decel Time 0 s Tricuspid Valve Name Value Normal TV Regurgitation Doppler TR Peak Velocity 299.11 cm/s TR Peak Gradient 31 mmHg Estimated PAP/RSVP RA Pressure 3 mmHg <=5 PA Systolic Pressure 39 mmHg <36 RV Systolic Pressure 39 mmHg <36 Aorta Name Value Normal Ascending Aorta Ao Root Diameter (MM) 2.88 cm Ao Root Diam Index (MM) 1.47 cm/m2 Aortic Valve Name Value Normal AV Doppler AV Peak Velocity 171.43 cm/s AV Peak Gradient 11 mmHg AV Mean Gradient 6 mmHg AV VTI 32.12 cm AV Area (Cont Eq VTI) 1.96 cm2 >=3.00 AV Area (Cont Eq Jude) 1.93 cm2 AV Regurgitation 2D LVOT Area 2.71 cm2 Ventricles Name Value Normal LV Dimensions 2D/MM IVS Diastolic Thickness (2D) 1.30 cm 0.60-1.00 LVID Diastole (2D) 4.98 cm 3.80-5.20 LVIW Diastolic Thickness (2D) 1.13 cm 0.60-0.90 LVID Systole (2D) 3.65 cm 2.20-3.50 LVOT Diameter 1.86 cm LV Mass (2D Cubed) 237.18 g 67.00-162.00 LV Mass Index (2D Cubed) 0.01 g/cm2 0.00-0.01 Relative Wall Thickness (2D) 0.45 LV Fractional Shortening/Ejection Fraction 2D/MM LV Fractional Shortening (2D) 27 % 27-45 LV EF (2D Teicholz) 52 % 54-74 LV Diastolic Volume (4C MOD) 126.23 ml LV EF (4C MOD) 56 % LV Diastolic Volume (2C MOD) 99.61 ml LV EF (2C MOD) 42 % LV Diastolic Volume (BP MOD) 114.44 ml 46.00-106.00 LV Diastolic Volume Index (BP MOD) 0.06 l/m2 0.03-0.06 LV Systolic Volume (BP MOD) 56.47 ml 14.00-42.00 LV Systolic Volume Index (BP MOD) 0.03 l/m2 0.01-0.02 LV EF (BP MOD) 51 % 54-74 LV Diastolic Length (4C) 9.01 cm LV Systolic Length (4C) 7.23 cm LV Stroke Volume (4C MOD) 71.30 ml Atria Name Value Normal LA Dimensions LA Dimension (MM) 4.23 cm 2.70-3.80 LA Volume (4C A-L) 60.32 ml LA Volume (BP A-L) 60.36 ml RA Dimensions RA Area (4C) 14.52 cm2 <=18.00 Report Signatures
--- NOTE | ~2024-07-15 | CT_ITS ---
CT chest abdomen pelvis wo con Ordering provider: Sean King MD History: . sob, hypoxia,epigastric pain, increased lfts . Comparison: None. Technique: CT chest without IV contrast. CT abdomen and pelvis without oral and IV contrast. Radiatio n reduction technique utilized. The dose-length product was 822.26 mGy-cm. FINDINGS: The study is limited due to lack of IV contrast. CHEST: --VISUALIZED THORACIC INLET: Normal as visualized. --MEDIASTINUM: Aorta/coronary arteries: Mild atheromatous disease. Heart/other: The heart is slightly enlarged. Lymph nodes: No mediastinal or hilar adenopathy. Postoperative changes in the mediastinum. --LUNGS: Right pleural effusion with adjacent atelectasis. 4 mm nodule is seen in the right lower lob e laterally. 6 months follow-up CT is advised. Focal atelectatic area is seen in the lingula laterall y. No pulmonary masses. No infiltrates. No pneumothorax. --MUSCULOSKELETAL: Soft tissues: The superficial soft tissues are normal. Bones: Age appropriate degenerative changes of the spine. Old healed fractures in the right 10th and 11th ribs posteriorly. ABDOMEN/PELVIS: --MUSCULOSKELETAL: Bones: Age appropriate degenerative changes of the spine. Superficial soft tissues: The superficial soft tissues are normal. --UPPER ABDOMINAL ORGANS: Liver: Normal. Gallbladder: Distended with possible tiny stones seen posteriorly in the neck of the gallbladder. Min imal fluid is seen around the gallbladder which may indicate cholecystitis. Clinical correlation advi sed. Spleen: Normal. Stomach/duodenum: Normal. Pancreas: Atrophic. Adrenals: Normal. Kidneys: Hyperdense foci are seen in the right kidney papillary areas may be contrast. Stones are les s likely. Similar appearances seen in the left kidney. Bilateral perinephric fat stranding is seen. --PELVIC ORGANS: The bladder is normal. Contrast is seen in the urinary bladder. No bladder stones. --BOWEL AND MESENTERY: Colon: No evidence of diverticulitis.. Normal appendix. Small Bowel: Normal. No obstruction. Peritoneum/mesentery: No free air or free fluid. No mesenteric lymphadenopathy. --RETROPERITONEUM: Mild atheromatous disease of the abdominal aorta. No retroperitoneal lymphadenop athy. IMPRESSION: CHEST: 1. Right pleural effusion. 2. No evidence of pneumonia or pneumothorax seen. ABDOMEN/PELVIS: 1. Distended gallbladder with tiny hyperdensities seen posterior in the gallbladder suggestive of st ones. Ultrasound evaluation advised. Surrounding fluid is seen which may indicate cholecystitis. Clin ical correlation advised. 2. Residual contrast seen in the urinary bladder. 3. No evidence of appendicitis, diverticulitis or intestinal obstruction. Reviewed, dictated and finalized at location A. IMPRESSION: CHEST: 1. Right pleural effusion. 2. No evidence of pneumonia or pneumothorax seen. ABDOMEN/PELVIS: 1. Distended gallbladder with tiny hyperdensities seen posterior in the gallbl adder suggestive of stones. Ultrasound evaluation advised. Surrounding fluid is seen which may indicate cholecystitis. Clinical correlation advised. 2. Residual contrast seen in the urinary bladder. 3. No evidence of appendicitis, diverticulitis or intestinal obstruction.
--- NOTE | ~2024-07-15 | US_ITS ---
EXAMINATION: US perc cholecystostomy w imag DATE: 07/17/2024 15:25 INDICATION: Acute cholecystitis TECHNIQUE: The procedure including the risks and benefits was discussed with the patient. Risks discu ssed included bleeding including hemorrhage and bile peritonitis. Oral and written consent were obtai sola. The patient was confirmed to be receiving appropriate antibiotic coverage. The skin overlying t he liver and gallbladder was prepped and draped in usual sterile fashion. Anesthetic was administere d with 1% lidocaine subcutaneously. Conscious sedation was provided by the anesthesiology service. An 8.5 Fr catheter was inserted through liver parenchyma into the gallbladder by trocar technique. Th e metal stiffener and trocar needle were removed, and the pigtail tip was locked. Bile was aspirated and sent for culture. The catheter was stitched to the skin with suture. There were no immediate comp lications. FINDINGS: The gallbladder is dilated with wall thickening and stones and sludge, consistent with acut e cholecystitis. Ultrasound images demonstrate the catheter within the gallbladder. 50 mL brown-color ed bile was aspirated with 20 mL sent to lab for Gram stain and aerobic, anaerobic and fungal culture s. Final images show the formed pigtail catheter tip in the gallbladder. IMPRESSION: 1. Successful ultrasound-guided cholecystostomy tube placement. 2. 20 mL bile was sent for aerobic, anaerobic, and fungal cultures. 3. The catheter will be managed by Dr. Mar. A catheter cholangiogram may be performed not less than 48 hours after tube placement if clinically indicated to assess cystic duct patency. If cholecystec emy is not eventually performed and the infectious episode has resolved, the tube may be removed ove r a guidewire, preferably not less than 3 weeks after placement to allow time for a mature catheter t ract to form to prevent bile leakage and peritonitis. Reviewed, dictated and finalized at location A. IMPRESSION: 1. Successful ultrasound-guided cholecystostomy tube placement. 2. 20 mL bile was sent for aerobic, anaerobic, and fungal cultures. 3. The catheter will be managed by Dr. Mar. A catheter cholangiogram may be p erformed not less than 48 hours after tube placement if clinically indicated to assess cystic duct patency. If cholecystectomy is not eventually performed an d the infectious episode has resolved, the tube may be removed over a guidewire , preferably not less than 3 weeks after placement to allow time for a mature c atheter tract to form to prevent bile leakage and peritonitis.
--- NOTE | ~2024-07-15 | CT_ITS ---
CT of the Abdomen and Pelvis: Indication: Abdominal pain Technique: 2.5 mm axial scans were obtained through the abdomen and pelvis following intravenous adm inistration of 100 cc of Omnipaque 350. Dose reduction technique was used on this scan by utilizing a utomated exposure control and iterative reconstruction technique. The dose-length product (DLP) was 1 389.12 mGy-cm. COMPARISON: 08/31/2021 Findings: Scans through the lung bases are unremarkable. The liver, spleen, pancreas, adrenals and kidneys are within normal limits. Gallbladder is distended. Questionable minimal pericholecystic inflammatory change. There are atherosclerotic calcifications o f the aorta. No lymphadenopathy. No bowel obstruction or bowel wall thickening. There is no evidence to suggest acute appendicitis. Images through the pelvis were performed. Urinary bladder unremarkable. No pelvic mass seen. No ascit es.There is mild compression deformity of L1, likely chronic. Impression: Distended gallbladder with questionable minimal pericholecystic inflammatory change. Consider acute c holecystitis. Consider right upper quadrant ultrasound for further evaluation. Reviewed, dictated and finalized at location . Impression: Distended gallbladder with questionable minimal pericholecystic inflammatory ch radha. Consider acute cholecystitis. Consider right upper quadrant ultrasound fo r further evaluation.
--- NOTE | ~2024-07-15 | US_ITS ---
EXAMINATION: US right upper quadrant DATE: 07/15/2024 08:03 INDICATION: Abnormal CT suspicious for acute cholecystitis. TECHNIQUE: Multiple grayscale and Doppler ultrasound images of the abdomen were obtained. COMPARISON: None FINDINGS: The pancreatic head and body are normal in appearance. The pancreatic tail is not visualized. Liver has normal echogenicity and contour, with a smooth surface. No liver lesion identified. No intrahepat ic biliary duct dilation suspected. Portal venous flow was seen in the hepatopetal, normal direction and has normal Doppler waveform. The gallbladder is normal in appearance. There is no cholelithiasis . Trace amount of pericholecystic fluid situated between the liver, gallbladder and hepatic flexure o f colon. The common bile duct measures 7 mm, which remains within normal limits for age. Sonographic Smith sign was reported as negative by the glass belt sander. Right kidney measures 11.8 x 6.3 x 6.2 cm wi th normal echogenicity and no hydronephrosis. There is mild to moderate diffuse cortical thinning con sistent with chronic age-related renal atrophy. IMPRESSION: 1. Nonspecific trace pericholecystic fluid but with normal-appearing gallbladder with no cholelithias is or sonographic Smith sign to suggest acute cholecystitis. 2. Likely age-related mild to moderate diffuse right renal cortical atrophy. Reviewed, dictated and finalized at location A. IMPRESSION: 1. Nonspecific trace pericholecystic fluid but with normal-appearing gallbladde r with no cholelithiasis or sonographic Smith sign to suggest acute cholecysti tis. 2. Likely age-related mild to moderate diffuse right renal cortical atrophy.
--- NOTE | ~2024-07-15 | XR_ITS ---
XR chest 2V Ordering provider: Angela Ventura MD History: 83 years Female with . hypoxia . Comparison: August 09, 2023 FINDINGS: MEDIASTINUM: The cardiac silhouette is slightly enlarged. Postoperative changes in the mediastinum. LUNGS: No infiltrates, effusions or pneumothorax. OTHER: No free air under the diaphragm. IMPRESSION: No acute pulmonary pathology. Reviewed, dictated and finalized at location A.
--- NOTE | 2024-07-15 02:10 | ECG_ITS ---
Test Date: 2024-07-15 02:04:28 Measurements Intervals [place] Rate: 54 P: -19 [place]: 115 QRS: -18 QRSD: 93 T: 93 QT: 455 QTc: 434 Interpretive Statements SINUS BRADYCARDIA WITH SHORT [place] INTERVAL LEFT VENTRICULAR HYPERTROPHY WITH ST-T CHANGE MINIMAL Q WAVES- HIGH LATERAL LEADS BASELINE ARTIFACT- I, II, III, AVR, AVL, AVF, V1-V6 BORDERLINE ECG No previous ECG available for comparison Electronically Signed On 07-15-2024 06:27:51 CDT by Erick Bruno D.O.
--- NOTE | 2024-07-15 02:12 | ED_ITS ---
HPI - General Adult General Chief complaint: Nausea/Vomiting/Diarrhea <Lexie Dobbs MD - Last Filed: 07/15/24 07:06> Stated complaint: EPIGASTRIC PAIN, N/V/D <Lexie Dobbs MD - Last Filed: 07/15/24 07:06> History of Present Illness HPI narrative: Patient is an 83-year-old female who presents emergency department this evening complaining of nausea, vomiting and epigastric abdominal pain. Patient admits that she lives at home alone. Per EMS report, patient started to have epigastric abdominal pain around 10:00 p.m. last night. Patient decided to wait it out and went to sleep. Woke up at 1:00 a.m. with worsening pain, nausea vomiting and diarrhea. Patient denies any fevers but states that she did have 1 episode of chills after the vomiting and the diarrhea. Per EMS, patient was initially satting 80% on room air for them so they did place her on 2 L nasal cannula. Upon arrival to the emergency department, patient is satting 93% on room air which is her baseline given her history of COPD. She also has a history of diabetes and coronary artery disease. EMS did administer 4 mg of IV Zofran which patient states that did improve her symptoms. She is currently denying any chest pain, any lower abdominal pain, dysuria or hematuria, denies any recent illness. No additional symptoms or concerns at this time. She is alert and oriented to person, place, time and situation and answering all my questions appropriately. <Lexie Dobbs MD - Last Filed: 07/15/24 07:06> Related Data Home medications: Home Medications ?Medication ?Instructions ?Recorded ?Confirmed ?Last Taken ?Type aspirin 81 mg tablet,delayed 81 mg PO DAILY 06/05/19 07/15/24 06/10/19 History release loratadine 10 mg tablet 10 mg PO DAILY 09/11/19 07/15/24 Unknown History warfarin 2 mg tablet 6 mg PO DAILY 09/11/19 07/15/24 07/14/24 17:00 History 6 mg metoprolol tartrate 25 mg tablet 25 mg PO BID 07/25/23 07/15/24 Unknown History latanoprost 0.005 % eye drops 1 drp EACH EYE HS 08/09/23 07/15/24 Unknown History metformin 500 mg tablet 500 mg PO BID 08/09/23 07/15/24 Unknown History atorvastatin 80 mg tablet 80 mg PO QPM 07/15/24 07/15/24 Unknown History cetirizine 10 mg tablet 10 mg PO DAILY 07/15/24 07/15/24 07/14/24 09:00 History 10 mg hydralazine 50 mg tablet 25 mg PO TID 07/15/24 07/15/24 Unknown History lansoprazole 15 mg capsule,delayed 15 mg PO DAILY 07/15/24 07/15/24 07/14/24 09:00 History release 15 mg <Lexie Dobbs MD - Last Filed: 07/15/24 07:06> Allergies/adverse reactions: Allergies Allergy/AdvReac Type Severity Reaction Status Date / Time No Known Allergies Allergy Verified 07/15/24 11:47 <Lexie Dobbs MD - Last Filed: 07/15/24 07:06> Review of Systems 2 Review of Systems: All systems are reviewed and are negative unless stated otherwise in the HPI. 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 H/O heart bypass surgery H/O sinus surgery H/O shoulder surgery H/O cataract extraction History of bunionectomy <Lexie Dobbs MD - Last Filed: 07/15/24 07:06> Family History Family History: Family History Other Diabetes mellitus Family history of arthritis Family history of malignant neoplasm <Lexie Dobbs MD - Last Filed: 07/15/24 07:06> Social History Social History: Social History Social History: Smoking status: Never smoker Second hand tobacco smoke exposure: No Alcohol intake: never Substance use: never Substance use type: does not use Do You Feel Safe in your Home?: Yes Lack of Transportation: No Lack of Food: Never True Current Housing: I Have Housing Concerned About Future Housing: No Difficulty Paying Gas/Electric Bills: No Difficulty Paying for Meds: No Currently Unemployed: No Education: High School Diploma/GED Difficulty w/ Childcare or Family Care: No Living arrangements: alone Occupation/Education: occupation 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 Gender identity (if verbalized by the patient): Female Sexual Orientation (if Verbalized by the Patient): Straight or Heterosexual Spiritual care concerns: No <Lexie Dobbs MD - Last Filed: 07/15/24 07:06> Exam 2 Narrative: General: Alert, awake, afebrile, in mild distress secondary to nausea, pleasant elderly female. HEENT: PERRL, no rhinorrhea, no post nasal drip, oropharynx clear. Neck: Trachea midline, no JVD, no lymphadenopathy. Cardiovascular: Regular rate and rhythm, no murmurs, rubs or gallops, no peripheral edema. Respiratory: Clear to auscultation bilaterally, no tachypnea, no wheezing, no rhonchi, no rubs, no respiratory distress. Abdomen: Soft, nontender, nondistended, no rebound, no guarding, no peritoneal signs. Musculoskeletal: No joint swelling or deformity, normal muscle tone. Skin: No rashes or petechia, no signs of infection. Psychiatric: Alert and oriented, normal behavior and judgment for situation. Neurological: Alert and oriented to person, place, and time. Follows all commands. No focal deficits, speech is clear and fluent. <Lexie Dobbs MD - Last Filed: 07/15/24 07:06> Course Reevaluation(s) Reevaluation #1: I took over care from altagracia NOVAK and she reports patient having episodes of hypoxia and she had CT with possible cholecystitis. She discussed admission with patient but she did not want to be admitted at that time because she had no one to care for her dogs. I discussed with patient that I recommend admission still . She states she is unable to get a hold of anyone and will need to find someone to care for her dogs. She denies abdominal pain but she is on 3 L oxygen at this time for hypoxia. <Angela Ventura MD - Last Filed: 07/15/24 17:45> Date: 07/15/24 <Angela Ventura MD - Last Filed: 07/15/24 17:45> Time: 08:00 <Angela Ventura MD - Last Filed: 07/15/24 17:45> Reevaluation #2: Patient has found someone to care for her dogs. She is agreeable for admission for CHF , elevated troponin and hypoxia. <Angela Ventura MD - Last Filed: 07/15/24 17:45> Date: 07/15/24 <Angela Ventura MD - Last Filed: 07/15/24 17:45> Time: 09:00 <Angela Ventura MD - Last Filed: 07/15/24 17:45> Consultations Consultation #1: I Spoke with Dr. King, hospitalist, and he accepts admission with cardiology and general surgeon consult. <Angela Ventura MD - Last Filed: 07/15/24 17:45> Date: 07/15/24 <Angela Ventura MD - Last Filed: 07/15/24 17:45> Time: 09:22 <Angela Ventura MD - Last Filed: 07/15/24 17:45> Consultation #2: I spoke with Katy Kebede ,and [facility] care [facility] agrees to consult. Understand patient has been given lasix <Angela Ventura MD - Last Filed: 07/15/24 17:45> Date: 07/15/24 <Angela Ventura MD - Last Filed: 07/15/24 17:45> Time: 09:34 <Angela Ventura MD - Last Filed: 07/15/24 17:45> Consultation #3: I spoke with Dr. Mar and he agrees to consult on patient with leukocytosis , epigastric pain and abnormal CT <Angela Ventura MD - Last Filed: 07/15/24 17:45> Date: 07/15/24 <Angela Ventura MD - Last Filed: 07/15/24 17:45> Time: 09:44 <Angela Ventura MD - Last Filed: 07/15/24 17:45> Vital Signs Vital signs: Vital Signs Temperature 97.8 F 07/15/24 02:00 Pulse Rate 61 07/15/24 02:00 Respiratory Rate 22 H 07/15/24 02:00 Blood Pressure 158/74 H 07/15/24 02:00 Pulse Oximetry 93 07/15/24 02:00 Oxygen Delivery Room Air 07/15/24 02:00 Temperature 99.8 F H 07/15/24 15:58 Pulse Rate 90 07/15/24 15:58 Respiratory Rate 24 H 07/15/24 15:58 Blood Pressure 155/76 H 07/15/24 15:58 Pulse Oximetry 93 07/15/24 15:58 Oxygen Delivery Nasal Cannula 07/15/24 12:00 Oxygen Flow Rate 2 07/15/24 12:00 <Lexie Dobbs MD - Last Filed: 07/15/24 07:06> Vital Signs Temperature 97.8 F 07/15/24 02:00 Pulse Rate 61 07/15/24 02:00 Respiratory Rate 22 H 07/15/24 02:00 Blood Pressure 158/74 H 07/15/24 02:00 Pulse Oximetry 93 07/15/24 02:00 Oxygen Delivery Room Air 07/15/24 02:00 Temperature 99.8 F H 07/15/24 15:58 Pulse Rate 90 07/15/24 15:58 Respiratory Rate 24 H 07/15/24 15:58 Blood Pressure 155/76 H 07/15/24 15:58 Pulse Oximetry 93 07/15/24 15:58 Oxygen Delivery Nasal Cannula 07/15/24 12:00 Oxygen Flow Rate 2 07/15/24 12:00 <Angela Ventura MD - Last Filed: 07/15/24 17:45> Medical Decision Making MDM Narrative Medical decision making narrative: The patient was evaluated by myself in the emergency department. History is obtained from patient who is an independent historian and physical exam was performed. External medical records were reviewed at this time. IV was established and pertinent tests were ordered. Patient was administered 4 mg of IV morphine for pain and 4 mg of IV Zofran for nausea. EKG was obtained which revealed sinus bradycardia rate of 54 beats per minute, no evidence of acute ischemia. EKG was independently interpreted by me and is currently pending official cardiology read. Laboratory results obtained revealing a leukocytosis of 12.8, BUN of 28, anion gap 15 and a magnesium of 0.9 otherwise unremarkable. At this time, patient was administered 1 L IV fluid bolus with normal saline due to concern for dehydration. Urinalysis pending. Patient was also administered 2 g of IV magnesium sulfate at this time. Imaging studies obtained included CT abdomen and pelvis with IV contrast which was independently interpreted by me revealing: Impression: Distended gallbladder with questionable minimal pericholecystic inflammatory change. Consider acute cholecystitis. Consider right upper quadrant ultrasound for further evaluation. At this time, right upper quadrant ultrasound was ordered and is currently pending. Differential diagnosis considerations include gastroenteritis, acute viral syndrome, dehydration, electrolyte derangements, peptic ulcer disease. Comorbidities impacting this visit include none. I have evaluated and discussed social determinants of health with the patient that could potentially impact subsequent diagnosis and treatment plans. On repeat assessment of the patient, reevaluation revealed that the patient is doing well and is in no acute distress. Patient symptoms have improved since she arrived to our emergency department. Repeat vital signs were all reviewed and noted to be stable. Differential diagnosis and treatment plan were discussed with the patient at bedside. <Lexie Dobbs MD - Last Filed: 07/15/24 07:06> Vital Signs Vital Signs: Vital Signs Temperature 97.8 F 07/15/24 02:00 Pulse Rate 61 07/15/24 02:00 Respiratory Rate 22 H 07/15/24 02:00 Blood Pressure 158/74 H 07/15/24 02:00 Pulse Oximetry 93 07/15/24 02:00 Oxygen Delivery Room Air 07/15/24 02:00 Temperature 99.8 F H 07/15/24 15:58 Pulse Rate 90 07/15/24 15:58 Respiratory Rate 24 H 07/15/24 15:58 Blood Pressure 155/76 H 07/15/24 15:58 Pulse Oximetry 93 07/15/24 15:58 Oxygen Delivery Nasal Cannula 07/15/24 12:00 Oxygen Flow Rate 2 07/15/24 12:00 <Lexie Dobbs MD - Last Filed: 07/15/24 07:06> Vital Signs Temperature 97.8 F 07/15/24 02:00 Pulse Rate 61 07/15/24 02:00 Respiratory Rate 22 H 07/15/24 02:00 Blood Pressure 158/74 H 07/15/24 02:00 Pulse Oximetry 93 07/15/24 02:00 Oxygen Delivery Room Air 07/15/24 02:00 Temperature 99.8 F H 07/15/24 15:58 Pulse Rate 90 07/15/24 15:58 Respiratory Rate 24 H 07/15/24 15:58 Blood Pressure 155/76 H 07/15/24 15:58 Pulse Oximetry 93 07/15/24 15:58 Oxygen Delivery Nasal Cannula 07/15/24 12:00 Oxygen Flow Rate 2 07/15/24 12:00 <Angela Ventura MD - Last Filed: 07/15/24 17:45> Lab Data Lab results reviewed: Yes I reviewed the patient's lab results. <Angela Ventura MD - Last Filed: 07/15/24 17:45> Result diagrams: 07/15/24 02:11 07/15/24 02:11 <Lexie Dobbs MD - Last Filed: 07/15/24 07:06> Labs: Lab Results 07/15/24 07/15/24 07/15/24 Range/Units 02:11 03:37 08:11 WBC 12.8 H (4.5-10.0) K/mm3 RBC 3.69 L (4.2-5.4) M/mm3 Hgb 11.2 L (12.0-15.0) g/dL Hct 35.3 L (37.0-47.0) % MCV 95.7 (80-100) fl MCH 30.4 (26-34) pg MCHC 31.7 L (32-36) g/dl RDW 13.2 (11.5-14.5) % Plt Count 217 (150-375) k/mm3 MPV 9.6 (7.4-10.4) fl Immature Gran % (Auto) 0.3 (0-0.5) % Neut % (Auto) 84.6 H (45.5-73.1) % Lymph % (Auto) 7.8 L (18.3-44.2) % [place] % (Auto) 6.5 (2.6-8.5) % Eos % (Auto) 0.4 (0-4.4) % Baso % (Auto) 0.4 (0.2-1.2) % Lymph # (Auto) 1.00 (0.9-3.2) K/mm3 [place] # (Auto) 0.8 H (0.1-0.6) K/mm3 Eos # (Auto) 0.1 (0-0.3) K/mm3 Baso # (Auto) 0.1 (0.0-0.1) K/mm3 Abs Immat Gran (auto) 0.04 H (0.00-0.031) K/mm3 Absolute Neuts (auto) 10.8 H (1.3-6.7) K/mm3 Absolute Nucleated RBC 0.000 (0.0-0.012) K/mm3 Nucleated RBC % 0.0 (0.0-0.2) % PT (11.1-14.7) Seconds INR APTT (22.3-36.8) Seconds Sodium 140 (137-145) mmol/L Potassium 4.5 (3.4-5.0) mmol/L Chloride 104 (98-107) mmol/L Carbon Dioxide 21 L (22-30) mmol/L Anion Gap 15 H (4-12) mmol/L BUN 28 H D (7-17) mg/dL Creatinine 1.24 H (0.7-1.0) mg/dL Estim Creat Clear Calc 33 ml/min Estimated GFR 41 L (59 - ) Glucose 235 H (65-110) mg/dL POC Capillary Glucose (65-105) mg/dl Hemoglobin A1c 7.7 H (<5.7) % Calcium 7.8 L (8.4-10.2) mg/dL Magnesium 0.9 L (1.6-2.3) mg/dL Total Bilirubin 0.6 (0.2-1.3) mg/dL AST 21 (14-36) U/L ALT 21 (6-35) U/L Alkaline Phosphatase 99 (38-126) U/L Troponin I 0.107 H* (0.000-0.034) ng/mL NT-Pro-B Natriuret Pep 3050 H (19.9-100) pg/mL Total Protein 7.0 (6.3-8.2) g/dL Albumin 4.2 (3.5-5.1) g/dL Lipase 161 (23-300) U/L Urine Color Yellow (Yellow) Urine Appearance Clear (Clear) Urine pH 5.5 (5.0-9.0) Ur Specific [place] > 1.045 H (1.001-1.035) Urine Protein 3+ H (Negative) mg/dL Urine Glucose (UA) 1+ H (Negative) mg/dL Urine Ketones Trace H (Negative) mg/dL Ur Blood (Man) Negative (Negative) Urine Nitrate Negative (Negative) Urine Bilirubin Negative (Negative) Urine Urobilinogen 0.2 (<2.0) mg/dL Leukocyte Esterase Rfl Negative (Negative) MAIDA/UL Urine RBC 0-2 (0-2) /hpf Urine WBC 0-5 (0-3) /hpf Ur Squamous Epith Cells None seen (Few) /hpf Urine Bacteria None seen /hpf Urine Casts 0-2 07/15/24 07/15/24 07/15/24 Range/Units 09:49 11:09 11:37 WBC (4.5-10.0) K/mm3 RBC (4.2-5.4) M/mm3 Hgb (12.0-15.0) g/dL Hct (37.0-47.0) % MCV (80-100) fl MCH (26-34) pg MCHC (32-36) g/dl RDW (11.5-14.5) % Plt Count (150-375) k/mm3 MPV (7.4-10.4) fl Immature Gran % (Auto) (0-0.5) % Neut % (Auto) (45.5-73.1) % Lymph % (Auto) (18.3-44.2) % [place] % (Auto) (2.6-8.5) % Eos % (Auto) (0-4.4) % Baso % (Auto) (0.2-1.2) % Lymph # (Auto) (0.9-3.2) K/mm3 [place] # (Auto) (0.1-0.6) K/mm3 Eos # (Auto) (0-0.3) K/mm3 Baso # (Auto) (0.0-0.1) K/mm3 Abs Immat Gran (auto) (0.00-0.031) K/mm3 Absolute Neuts (auto) (1.3-6.7) K/mm3 Absolute Nucleated RBC (0.0-0.012) K/mm3 Nucleated RBC % (0.0-0.2) % PT 26.4 H (11.1-14.7) Seconds INR 2.4 APTT 35.6 (22.3-36.8) Seconds Sodium (137-145) mmol/L Potassium (3.4-5.0) mmol/L Chloride (98-107) mmol/L Carbon Dioxide (22-30) mmol/L Anion Gap (4-12) mmol/L BUN (7-17) mg/dL Creatinine (0.7-1.0) mg/dL Estim Creat Clear Calc ml/min Estimated GFR (59 - ) Glucose (65-110) mg/dL POC Capillary Glucose 254 H (65-105) mg/dl Hemoglobin A1c (<5.7) % Calcium (8.4-10.2) mg/dL Magnesium (1.6-2.3) mg/dL Total Bilirubin (0.2-1.3) mg/dL AST (14-36) U/L ALT (6-35) U/L Alkaline Phosphatase (38-126) U/L Troponin I 0.331 H* D (0.000-0.034) ng/mL NT-Pro-B Natriuret Pep (19.9-100) pg/mL Total Protein (6.3-8.2) g/dL Albumin (3.5-5.1) g/dL Lipase (23-300) U/L Urine Color (Yellow) Urine Appearance (Clear) Urine pH (5.0-9.0) Ur Specific [place] (1.001-1.035) Urine Protein (Negative) mg/dL Urine Glucose (UA) (Negative) mg/dL Urine Ketones (Negative) mg/dL Ur Blood (Man) (Negative) Urine Nitrate (Negative) Urine Bilirubin (Negative) Urine Urobilinogen (<2.0) mg/dL Leukocyte Esterase Rfl (Negative) MAIDA/UL Urine RBC (0-2) /hpf Urine WBC (0-3) /hpf Ur Squamous Epith Cells (Few) /hpf Urine Bacteria /hpf Urine Casts <Lexie Dobbs MD - Last Filed: 07/15/24 07:06> Lab Results 07/15/24 07/15/24 07/15/24 Range/Units 02:11 03:37 08:11 WBC 12.8 H (4.5-10.0) K/mm3 RBC 3.69 L (4.2-5.4) M/mm3 Hgb 11.2 L (12.0-15.0) g/dL Hct 35.3 L (37.0-47.0) % MCV 95.7 (80-100) fl MCH 30.4 (26-34) pg MCHC 31.7 L (32-36) g/dl RDW 13.2 (11.5-14.5) % Plt Count 217 (150-375) k/mm3 MPV 9.6 (7.4-10.4) fl Immature Gran % (Auto) 0.3 (0-0.5) % Neut % (Auto) 84.6 H (45.5-73.1) % Lymph % (Auto) 7.8 L (18.3-44.2) % [place] % (Auto) 6.5 (2.6-8.5) % Eos % (Auto) 0.4 (0-4.4) % Baso % (Auto) 0.4 (0.2-1.2) % Lymph # (Auto) 1.00 (0.9-3.2) K/mm3 [place] # (Auto) 0.8 H (0.1-0.6) K/mm3 Eos # (Auto) 0.1 (0-0.3) K/mm3 Baso # (Auto) 0.1 (0.0-0.1) K/mm3 Abs Immat Gran (auto) 0.04 H (0.00-0.031) K/mm3 Absolute Neuts (auto) 10.8 H (1.3-6.7) K/mm3 Absolute Nucleated RBC 0.000 (0.0-0.012) K/mm3 Nucleated RBC % 0.0 (0.0-0.2) % PT (11.1-14.7) Seconds INR APTT (22.3-36.8) Seconds Sodium 140 (137-145) mmol/L Potassium 4.5 (3.4-5.0) mmol/L Chloride 104 (98-107) mmol/L Carbon Dioxide 21 L (22-30) mmol/L Anion Gap 15 H (4-12) mmol/L BUN 28 H D (7-17) mg/dL Creatinine 1.24 H (0.7-1.0) mg/dL Estim Creat Clear Calc 33 ml/min Estimated GFR 41 L (59 - ) Glucose 235 H (65-110) mg/dL POC Capillary Glucose (65-105) mg/dl Hemoglobin A1c 7.7 H (<5.7) % Calcium 7.8 L (8.4-10.2) mg/dL Magnesium 0.9 L (1.6-2.3) mg/dL Total Bilirubin 0.6 (0.2-1.3) mg/dL AST 21 (14-36) U/L ALT 21 (6-35) U/L Alkaline Phosphatase 99 (38-126) U/L Troponin I 0.107 H* (0.000-0.034) ng/mL NT-Pro-B Natriuret Pep 3050 H (19.9-100) pg/mL Total Protein 7.0 (6.3-8.2) g/dL Albumin 4.2 (3.5-5.1) g/dL Lipase 161 (23-300) U/L Urine Color Yellow (Yellow) Urine Appearance Clear (Clear) Urine pH 5.5 (5.0-9.0) Ur Specific [place] > 1.045 H (1.001-1.035) Urine Protein 3+ H (Negative) mg/dL Urine Glucose (UA) 1+ H (Negative) mg/dL Urine Ketones Trace H (Negative) mg/dL Ur Blood (Man) Negative (Negative) Urine Nitrate Negative (Negative) Urine Bilirubin Negative (Negative) Urine Urobilinogen 0.2 (<2.0) mg/dL Leukocyte Esterase Rfl Negative (Negative) MAIDA/UL Urine RBC 0-2 (0-2) /hpf Urine WBC 0-5 (0-3) /hpf Ur Squamous Epith Cells None seen (Few) /hpf Urine Bacteria None seen /hpf Urine Casts 0-2 07/15/24 07/15/24 07/15/24 Range/Units 09:49 11:09 11:37 WBC (4.5-10.0) K/mm3 RBC (4.2-5.4) M/mm3 Hgb (12.0-15.0) g/dL Hct (37.0-47.0) % MCV (80-100) fl MCH (26-34) pg MCHC (32-36) g/dl RDW (11.5-14.5) % Plt Count (150-375) k/mm3 MPV (7.4-10.4) fl Immature Gran % (Auto) (0-0.5) % Neut % (Auto) (45.5-73.1) % Lymph % (Auto) (18.3-44.2) % [place] % (Auto) (2.6-8.5) % Eos % (Auto) (0-4.4) % Baso % (Auto) (0.2-1.2) % Lymph # (Auto) (0.9-3.2) K/mm3 [place] # (Auto) (0.1-0.6) K/mm3 Eos # (Auto) (0-0.3) K/mm3 Baso # (Auto) (0.0-0.1) K/mm3 Abs Immat Gran (auto) (0.00-0.031) K/mm3 Absolute Neuts (auto) (1.3-6.7) K/mm3 Absolute Nucleated RBC (0.0-0.012) K/mm3 Nucleated RBC % (0.0-0.2) % PT 26.4 H (11.1-14.7) Seconds INR 2.4 APTT 35.6 (22.3-36.8) Seconds Sodium (137-145) mmol/L Potassium (3.4-5.0) mmol/L Chloride (98-107) mmol/L Carbon Dioxide (22-30) mmol/L Anion Gap (4-12) mmol/L BUN (7-17) mg/dL Creatinine (0.7-1.0) mg/dL Estim Creat Clear Calc ml/min Estimated GFR (59 - ) Glucose (65-110) mg/dL POC Capillary Glucose 254 H (65-105) mg/dl Hemoglobin A1c (<5.7) % Calcium (8.4-10.2) mg/dL Magnesium (1.6-2.3) mg/dL Total Bilirubin (0.2-1.3) mg/dL AST (14-36) U/L ALT (6-35) U/L Alkaline Phosphatase (38-126) U/L Troponin I 0.331 H* D (0.000-0.034) ng/mL NT-Pro-B Natriuret Pep (19.9-100) pg/mL Total Protein (6.3-8.2) g/dL Albumin (3.5-5.1) g/dL Lipase (23-300) U/L Urine Color (Yellow) Urine Appearance (Clear) Urine pH (5.0-9.0) Ur Specific [place] (1.001-1.035) Urine Protein (Negative) mg/dL Urine Glucose (UA) (Negative) mg/dL Urine Ketones (Negative) mg/dL Ur Blood (Man) (Negative) Urine Nitrate (Negative) Urine Bilirubin (Negative) Urine Urobilinogen (<2.0) mg/dL Leukocyte Esterase Rfl (Negative) MAIDA/UL Urine RBC (0-2) /hpf Urine WBC (0-3) /hpf Ur Squamous Epith Cells (Few) /hpf Urine Bacteria /hpf Urine Casts <Angela Ventura MD - Last Filed: 07/15/24 17:45> Imaging Data Radiologist's impression: ITS Impressions Abdomen/Pelvis CT 07/15/24 06:05 Impression: Distended gallbladder with questionable minimal pericholecystic inflammatory change. Consider acute cholecystitis. Consider right upper quadrant ultrasound for further evaluation. Upper Quadrant Ultrasound 07/15/24 08:13 IMPRESSION: 1. Nonspecific trace pericholecystic fluid but with normal-appearing gallbladder with no cholelithiasis or sonographic Smith sign to suggest acute cholecystitis. 2. Likely age-related mild to moderate diffuse right renal cortical atrophy. Chest X-Ray 07/15/24 09:01 IMPRESSION: No acute pulmonary pathology. <Angela Ventura MD - Last Filed: 07/15/24 17:45> ECG Data EKG #1: Attestation: I personally reviewed and interpreted this ECG as follows: <Angela Ventura MD - Last Filed: 07/15/24 17:45> ECG completion date: 07/15/24 <Angela Ventura MD - Last Filed: 07/15/24 17:45> ECG completion time: 08:09 <Angela Ventura MD - Last Filed: 07/15/24 17:45> Interpretation: nonspecific t abnormalities <Angela Ventura MD - Last Filed: 07/15/24 17:45> EKG Interpretation: tachycardia (100), sinus rhythm and NL axis <Angela Ventura MD - Last Filed: 07/15/24 17:45> Critical Care Time Critical Care Time Critical Care Time: Yes <Angela Ventura MD - Last Filed: 07/15/24 17:45> Total Critical Care Time: 36 <Angela Ventura MD - Last Filed: 07/15/24 17:45> Discharge Plan Discharge Clinical Impression: Abdominal pain, epigastric, Hypomagnesemia, Elevated troponin, CHF (congestive heart failure) <Lexie Dobbs MD - Last Filed: 07/15/24 07:06> Patient Disposition: Still a Patient <Lexie Dobbs MD - Last Filed: 07/15/24 07:06> Condition: Guarded Prognosis <Lexie Dobbs MD - Last Filed: 07/15/24 07:06> Time of Disposition: 04:59 <Lexie Dobbs MD - Last Filed: 07/15/24 07:06> 04:59 <Angela Ventura MD - Last Filed: 07/15/24 17:45>
--- OUTSIDE RECORDS SUMMARY | 2024-07-15 02:15 | XMS_ITS ---
Author Organization [facility] Address [address] [place], [place] [id number] Care Team Providers Care Assembler [employer] Name Role Phone FRANCISCO FUCHS Unavailable [phone] Christian Cardozo Unavailable Unavailable CARLYLE MARINO Unavailable [phone] REASON FOR VISIT *General care Medications Medication SIG (Take, Route, Frequency, Duration) Notes Start Date End Date Status ezetimibe 10 MG / simvastatin 10 MG Oral Tablet [Vytorin] ORAL ezetimibe 10 MG / simvastatin 10 MG Oral Tablet [Vytorin]Original Medicationezetimibe 10 MG / simvastatin 10 MG Oral Tablet [Vytorin] *Reorder from [facility] Interaction Alerts* 10/28/2016 Unknown citalopram 10 MG Oral Tablet ORAL citalopram 10 MG Oral TabletOriginal Medicationcitalopram 10 MG Oral Tablet *Reorder from [facility]* 10/28/2016 Unknown valsartan 40 MG Oral Tablet [Diovan] ORAL valsartan 40 MG Oral Tablet [Diovan]Original Medicationvalsartan 40 MG Oral Tablet [Diovan] *Reorder from [facility]* 10/28/2016 Unknown metformin hydrochloride 500 MG Oral Tablet ORAL metformin hydrochloride 500 MG Oral TabletOriginal Medicationmetformin hydrochloride 500 MG Oral Tablet *Reorder from [facility]* 10/28/2016 Unknown Encounters Encounter Location Date Provider Diagnosis [address] [id number] 01/18/2024 CARLYLE MARINO Other hammer toe(s) (acquired), right foot M20.41 ; Tinea unguium B35.1 ; Other hammer toe(s) (acquired), left foot M20.42 ; Pain in right toe(s) M79.674 ; Pain in left toe(s) M79.675 ; 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 The patient was given education about shoe recommendations specific for the condition. The patient was educated about custom orthotics and how appropriate shoes and orthotics can prevent further worsening of the deformity. The patient was educated about how bad shoe habits can worsen the condition. NSAIDS, P.T., injections and other conservative treatments were discussed. Both surgical and non surgical treatments were discussed, but conservative options were emphasized. 01/18/2024 Tinea unguium (ICD-10 - B35.1) Aseptic debridement of elongated thickened nails x 10 using sterile nippers, nails were debrided in length and thickness by 30% utilizing a nail nipper without incident. The patient was educated regarding all treatment options that include topical and oral antifungal treatments. I discussed the options of taking a sample of the nail to confirm diagnosis. Nail clippings were not sent for pathology analysis. The patient was educated why and how the fungal infection evolved in their feet and the patient was given information regarding how to prevent further infection. The patient was told to keep feet dry and change socks. The patient was told to be careful with old shoes and excessive sweating. The patient was educated regarding both OTC and prescription treatments. 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 Explained to patient the importance of keeping interdigital spaces dry, not walking bare foot, having supportive shoe gear, using moisturizer to skin on feet daily especially in winter months, and checking feet daily for any new lesions or areas suspicious of trauma infection or ulceration. Explained to patient to return to ED if any change in foot health associated with signs of systemic infection including but not limited to nausea, vomiting, fever. Plan Of Treatment Treatment Notes Assessment Notes Other hammer toe(s) (acquired), right fo ot The patient was educated regarding how to mechanically stabilize their deformity. The patient was given education about shoe recommendations specific for the condition. The patient was educated about custom orthotics and how appropriate shoes and orthotics can prevent further worsening of the deformity. The patient was educated about how bad shoe habits can worsen the condition. NSAIDS, P.T., injections and other conservative treatments were discussed. Both surgical and non surgical treatments were discussed, but conservative options were emphasized. Tinea unguium Aseptic debridement of elongated thickened nails x 10 using sterile nippers, nails were debrided in length and thickness by 30% utilizing a nail nipper without incident. The patient was educated regarding all treatment options that include topical and oral antifungal treatments. I discussed the options of taking a sample of the nail to confirm diagnosis. Nail clippings were not sent for pathology analysis. The patient was educated why and how the fungal infection evolved in their feet and the patient was given information regarding how to prevent further infection. The patient was told to keep feet dry and change socks. The patient was told to be careful with old shoes and excessive sweating. The patient was educated regarding both OTC and prescription treatments. 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 Explained to patient the importance of keeping interdigital spaces dry, not walking bare foot, having supportive shoe gear, using moisturizer to skin on feet daily especially in winter months, and checking feet daily for any new lesions or areas suspicious of trauma infection or ulceration. Explained to patient to return to ED if any change in foot health associated with signs of systemic infection including but not limited to nausea, vomiting, fever. Next Appt Details Follow Up: 3 Months, Reason: Provider Name:LIN VARGAS, 08/01/2024 12:50:00 PM, [address] [place] [address], [phone], Progress Notes * MELISSA VALERIO EDOB:[birth year] (83 yo F)Acc No.[id number]:01/18/2024 Patient: MELISSA STEWART Provider: José Manuel MARINO :1940 A ge:83 Y S ex:Female Date:01/18/2024 Address:[address] [place], [place] [id number] Subjective: * Chief Complaints: * 1 . *General care. * HPI: H PI: General care P atient presents to the office for diabetic foot care. Patient states that their nails are thickened, elongated and painful. Patient states that it is aggravated by shoe gear. Onset is gradual., Patient is taking prescription blood thinners., Date last seen by Dr. Cardozo was 12/2023., Initials [facility]. * ROS: G eneral / Constitutional: Patient denies w eakness. R espiratory: Patient denies c hronic cough, shortness of breath, sputum production. C ardiovascular: Patient denies c hest pain, history of NH, irregular heartbeat. M usculoskeletal: Patient complains of h ammertoes. P eripheral Vascular: Patient denies b lanching of skin, cold extremities, decreased sensation in extremities. S kin: Patient complains of f ungal nails, nail changes. ? N eurologic: Patient denies d izziness, gait abnormality, headache. * Medical History: * Medications: U nknown citalopram 10 MG Oral Tablet ORAL , Notes to Pharmacist: citalopram 10 MG Oral TabletOriginal Medicationcitalopram 10 MG Oral Tablet *Reorder from [facility] for eRx and Interaction Alerts*, Unknown ezetimibe 10 MG / simvastatin 10 MG Oral Tablet [Vytorin] ORAL , Notes to Pharmacist: ezetimibe 10 MG / simvastatin 10 MG Oral Tablet [Vytorin]Original Medicationezetimibe 10 MG / simvastatin 10 MG Oral Tablet [Vytorin] *Reorder from [facility] for eRx and Interaction Alerts*, Unknown metformin hydrochloride 500 MG Oral Tablet ORAL , Notes to Pharmacist: metformin hydrochloride 500 MG Oral TabletOriginal Medicationmetformin hydrochloride 500 MG Oral Tablet *Reorder from [facility] for eRx and Interaction Alerts*, Unknown valsartan 40 MG Oral Tablet [Diovan] ORAL , Notes to Pharmacist: valsartan 40 MG Oral Tablet [Diovan]Original Medicationvalsartan 40 MG Oral Tablet [Diovan] *Reorder from [facility] for eRx and Interaction Alerts* Objective: * Vitals: * Examination: P hysical Examination: V ascular: Dorsalis Pedis pulse noted at 1/4 right foot and 1/4 left foot and Posterior Tibial pulse noted at 1/4 right foot and 1/4 left foot, Capillary refill times noted to be less than three seconds x ten, Temperature gradient noted to be warm to cool to bilateral foot, pedal hair present to bilateral foot and no varicosities are noted Dermatologic: there are no open lesions, no signs of active clinical infection, no erythema noted, no ecchymoses, nails are elongated thickened and dystrophic with subungual debris x ten Musculoskeletal: there is pain to palpation onto nail plate x ten, no calf pain noted bilaterally, arch height noted at 2/5 non-weight bearing bilaterally, first metatarsophalangeal joint range of motion 30 deg non-weight bearing bilaterally, flexible fifth digit hammer toe deformity noted to bilateral foot reducible with kelikian push up test Neurology: protective sensation intact to light touch bilateral digits one through five, vibratory sensation intact to first metatarsophalangeal joint bilaterally. Assessment: * Assessment: 1. T inea unguium - B35.1 (Primary) 2 . O ther hammer toe(s) (acquired), right foot - M20.41 3 . O ther hammer toe(s) (acquired), left foot - M20.42 ? 4 . P ain in right toe(s) - M79.674 5 . P ain in left toe(s) - M79.675 6 . U nspecified atherosclerosis of lyt[place] arteries of extremities, bilateral legs - I70.203 7 . T ype 2 diabetes mellitus with diabetic peripheral angiopathy without gangrene - E11.51 Plan: * Treatment: 2. O ther hammer toe(s) (acquired), right foot Notes: The patient was educated regarding how to mechanically stabilize their deformity. The patient was given education about shoe recommendations specific for the condition. The patient was educated about custom orthotics and how appropriate shoes and orthotics can prevent further worsening of the deformity. The patient was educated about how bad shoe habits can worsen the condition. NSAIDS, P.T., injections and other conservative treatments were discussed. Both surgical and non surgical treatments were discussed, but conservative options were emphasized. 3. U nspecified atherosclerosis of lytton arteries of extremities, bilateral legs Notes: Patient educated on risks and aggravating factors of PVD, including conservative treatment options such as a diet and exercise regimen to aid in slowing progression of vascular disease ? 4. T ype 2 diabetes mellitus with diabetic peripheral angiopathy without gangrene Notes: Patient educated on proper diabetic foot care and the importance of tight glycemic control in regards to the prevention of diabetic manifestations and symptomatology in lower extremity. Explained to patient the importance of keeping interdigital spaces dry, not walking bare foot, having supportive shoe gear, using moisturizer to skin on feet daily especially in winter months, and checking feet daily for any new lesions or areas suspicious of trauma infection or ulceration. Explained to patient to return to ED if any change in foot health associated with signs of systemic infection including but not limited to nausea, vomiting, fever. * Follow Up: 3 Months * Billing Information: * Visit Code: 47717 Office Visit, Est Pt., Level 3. * Procedure Codes: * R INSPECTOR Sign off status: Completed true * Provider: José Manuel MARINO Date: 1 Generated for Jacquie lord/Robert/Rhiannon on: 0 07/15/2024 02:15 AM CDT History and Physical Notes * HPI (History of Present Illness) Category Sub-Category Detail Notes Category Not es HPI General care Patient presents to the office for diabetic foot care. Patient states that their nails are thickened, elongated and painful. Patient states that it is aggravated by shoe gear. Onset is gradual., Patient is taking prescription blood thinners., Date last seen by Dr. Cardozo was 12/2023., Initials [facility] Examination Category Sub-Category Detail Notes Category Not es Physical Examination Vascular: Dorsalis Pedis pulse noted at 1/4 right foot and 1/4 left foot and Posterior Tibial pulse noted at 1/4 right foot and 1/4 left foot, Capillary refill times noted to be less than three seconds x ten, Temperature gradient noted to be warm to cool to bilateral foot, pedal hair present to bilateral foot and no varicosities are noted Dermatologic: there are no open lesions, no signs of active clinical infection, no erythema noted, no ecchymoses, nails are elongated thickened and dystrophic with subungual debris x ten Musculoskeletal: there is pain to palpation onto nail plate x ten, no calf pain noted bilaterally, arch height noted at 2/5 non-weight bearing bilaterally, first metatarsophalangeal joint range of motion 30 deg non-weight bearing bilaterally, flexible fifth digit hammer toe deformity noted to bilateral foot reducible with kelikian push up test Neurology: protective sensation intact to light touch bilateral digits one through five, vibratory sensation intact to first metatarsophalangeal joint bilaterally
--- OUTSIDE RECORDS SUMMARY | 2024-07-15 02:15 | XMS_ITS | Encounter Summary ---
Author Organization [facility] Healthcare Address [address] [place] [address] Care Team Providers Care Director Social Welfare Name Role Phone Christian Cardozo MD Primary Care Provider Encounter Details Date Type Department Care Team (Late st Contact Info) Description 10/02/2023 Orders Only [facility] Health Information Management [address] [place] [id number] Scanning, Provider Social History Tobacco Use Types Packs/Day Years Used Date Smoking Tobacco: Never Smokeless Tobacco: Never Alcohol Use Standard Drinks/Week Comments No 0 (1 standard drink = 0.6 oz pur e alcohol) Comments Unknown Sex and Gender Information Value Date Recorded Sex Assigned at Not on file Legal Sex Female 1:11 PM [employer] Gender Identity Not on file Sexual Orientation Not on file documented as of this encounter Plan of Treatment Not on file documented as of this encounter Procedures Procedure Name Priority Date/Time Associated Diagnosis Comments SCAN - LABS 10/02/2023 documented in this encounter Results * SCAN - LABS (10/02/2023) us Provider Scanning Final Result documented in this encounter Visit Diagnoses Not on filedocumented in this encounter Care Teams Director Social Welfare Relationship Specialty Start Date End Date Christian Cardozo MD [address] [address] PCP - General Family Medicine 06/14/18 documented as of this encounter
--- OUTSIDE RECORDS SUMMARY | 2024-07-15 02:15 | XMS_ITS | Continuity of Care Document ---
Author Organization [facility] [place] [address] [place] [address] Dr Sultana [address] [place] [phone] Phone Care Team Providers Care Flavorer Name Role Phone Salcedo OD, Tod Unavailable Unavailable Procedures Procedure Date Office/outpatient Visit, Est Eye Exam Established Pt Visual Field Examination-Professional Oc Visual Field Examination(s) Office/outpatient Visit, Est Post-op Follow-up Visit Laser Surgery Of Eye No Charge Screening Visit Office/outpatient Visit, Est Optic Nerve Head Eval IOP Red Less Than 15% W Plan Of Care May Office/outpatient Visit, Est Optic Nerve Head Eval IOP Red Less Than 15% W Plan Of Care Dec IOP Red Less That 15% W Plan Of Care Dec Dilated Retinal Exam W Interpretation Oc No Script Fundus Photography W/ Report Visual Field Examination-Professional Ju Visual Field Examination(s) Eye Exam Established Pt Optic Nerve Head Eval Script Printed/Phoned Pt Requ Or Pharm N ot Availab Office/outpatient Visit, Est Optic Nerve Head Eval Dilated Retinal Exam W Interpretation Oc Fundus Photography W/ Report Office/outpatient Visit, Est Optic Nerve Head Eval Eye Exam Established Pt Optic Nerve Head Eval Visual Field Examination-Professional Ap Visual Field Examination(s) Office/outpatient Visit, Est Optic Nerve Head Eval Refraction Office/outpatient Visit, Est Optic Nerve Head Eval Visual Functional Status Assessed Optic Nerve Topography Optic Nerve Topography Office/outpatient Visit, Est Corneal Pachymetry Fundus Photography W/ Report Advance Directives Directive Yes / No Effective Date File Name No Information Encounters Encounter Description Practice Location Reason(s) For Visit Diagnoses Date Provider Providers Copied on Encounter Office/outpat ient Visit, Est Formerly [facility], [address] [place] [address] [address], [place], [place], [id number], tel:[phone] [facility] No Information Oct-2 1-201 0 Salcedo OD Tod. [address] [facility] , [address], [place], [place], [facility], [place]. tel:[phone] Formerly [facility], [address] [place] [address] [address], [place], [place], [id number], tel:[phone] [facility] No Information Oct-1 5-201 0 Salcedo OD Tod. [address] [facility] [address], [place], [address], [place]. tel:[phone] Formerly [facility], [address] [place] [address] [address], [place], [place], [id number], [place] tel:[phone] [facility] No Information Oct-0 6-201 0 Sharifa Cheung. [address] [facility] [address], [place], [address], [place]. tel:[phone] Referring Provider: Jonatan Munoz [address] [facility] [address], [place], [place], [facility]. tel:[phone] [facility]ly [facility], [address] [place] [address] [address], [place], [place], [id number], [place] tel:[phone] [facility] No Information Sep-2 7-201 0 Doisy Edaye. [address] [facility] , [address], [place], [place], [facility], . tel:[phone] Referring Provider: Jonatan Munoz, [address], [place], [facility]. tel:[phone] Office/outpat ient Visit, Est [facility], [address], [place], [place], [id number], [place] tel:[phone] [facility] No Information May-2 6-201 0 Doisy Edaye. [address] [facility] , [address], [place], [facility], [place]. tel:[phone] Formerly [facility], [address] [place] [address] [address], [place], [place], [address], [place] tel:[phone] [facility] No Information May-1 2-201 0 Doisy Edaye. [address] [facility] , [address], [place], [facility], [place]. tel:[phone] Former[facility], [address], [place], [place], [address], [place] tel:[phone] [facility] No Information May-0 4-201 0 Doisy Edaye. [address] [facility] , [address], [place], [facility], [place]. tel:[phone] [facility], [address] [place] [address], [place], [place], [id number], [place] tel:[phone] [facility] No Information Apr-1 9-201 0 Doisy Edaye. [address] [facility] [address], [address], [place], [facility], [place]. tel:[phone] Office/outpat ient Visit, Est [facility], [address] [place], [place], [place], [address], [place] tel:[phone] [facility] No Information Mar-1 5-201 0 Sharifa Cheung. [address] , [address], [place], [facility], . tel:[phone] Office/outpat ient Visit, Est [facility], [address] [place] [place] [address], [place], [place], [address], [place] tel:[phone] [facility] No Information Oct-2 6-200 9 Sharifa Cheung. [address] , [address], [place], [facility], [place]. tel:[phone] Referring Provider: Jonatan Munoz, [address], [place], [facility]. tel:[phone] [facility], [address] [place] [address], [place], [place], [address], [place] tel:[phone] [facility] No Information Davon-2 4-200 9 Sharifa Cheung. [facility] , [address], [place], [facility], [place]. tel:[phone] Referring Provider: Jonatan Munoz, [address], [place], [facility]. tel:[phone] [facility], [address] [place], [place], [place], [address], [place] tel:[phone] [facility] No Information Davon-2 2-200 9 Sharifa Cheung. [facility] , [address], [place], [facility], [place]. tel:[phone] Referring Provider: Jonatan Munoz, [address], [place], [facility]. tel:[phone] [facility], [address] [place] [address], [place], [place], [address], [place] tel:[phone] [facility] No Information 9-200 9 Sharifa Edaye. [address] [facility] , [address], [place], [facility], . tel:[phone] Office/outpat ient Visit, [facility], [address] [place] [address] [address], [place], [place], [address], [place] tel:[phone] [facility] No Information Dec-2 3-200 8 Sharifa Edaye. [address] [facility] , [address], [place], [facility], [place]. tel:[phone] Referring Provider: Jonatan Munoz, [address] [facility] [address], [place], [facility]. tel:[phone] Office/outpat ient Visit, [facility] [address] [place] [address] [address], [place], [place], [address], [place] tel:[phone] [facility] No Information 8-200 8 Sharifa Cheung. [address] [facility] , [address], [place], [facility], [place]. tel:[phone] [facility], [address] [place] [address], [place], [place], [address], [place] tel:[phone] [facility] No Information 2 1-200 8 Sharifa Cheung. [address] [facility] , [address], [place], [facility], [place]. tel:[phone] [facility], [address] [place] [address] [address], [place], [place], [address], [place] tel:[phone] [facility] No Information Jun-3 0-200 8 Sharifa Cheung. [address] , [address], [place], [address], [place]. tel:[phone] Referring Provider: Jonatan Munoz, [address], [place], [facility]. tel:[phone] [facility], [address] [place] [address] [address], [place], [place], [address], [place] tel:[phone] [facility] No Information Jun-2 2-200 8 Sharifa Cheung. [address], [address], [place], [facility], [place]. tel:[phone] Referring Provider: Jonatan Munoz, [address], [place], [facility]. tel:[phone] Office/outpat ient Visit, [facility], [address] [place] [address], [place], [place], [address], [place] tel:[phone] [facility] No Information Nirav-0 9-200 8 Sharifa Cheung. [facility] [address], [address], [place], [facility], [place]. tel:[phone] Office/outpat ient Visit, [facility], [address] [place] [address], [place], [place], [address], [place] tel:[phone] [facility] No Information Oct-1 7-200 7 Sharifa Cheung. [address], [address], [place], [facility], [place]. tel:[phone] [facility], [address] [place] [address] [address], [place], [place], [address], [place] tel:[phone] [facility] No Information Leonardo-1 0-200 7 Sharifa Cheung. [address], [address], [place], [facility], [place]. tel:[phone] Referring Provider: Jonatan Munoz, [address], [place], [address]. tel:[phone] Office/outpat ient Visit, [facility], [address] [place] [address], [place], [place], [address], [place] tel:[phone] [facility] No Information 7 Sharifa Cheung. [address] [facility] , [address], [place], [address], [place]. tel:[phone] Referring Provider: Jonatan Munoz [facility] [address], [place], [address]. tel:[phone] Family History Family Member Type Diagnosis Age At Onset No Information Payers Payer name Insurance type Covered libertarian ID Authoriza tion(s) Medicare [facility] [id number] [place] Commercial [id number] Social History Type Description Quantity Date Captured Comments Sex Female Smoking Status No Information Chief Complaint And Reason For Visit No Information Reason For Referral Reason For Referral No Information History Of Present Illness Encounter Date Complaint History Of Prese nt Illness No Information Functional Status Date Functional Assessmen t No Information Instructions Date Instruction Additional Infor mation No Information Assessments Type Assessment Date No Information Patient Care Teams Name Effective Dates (start - stop) Status Members No Information
--- OUTSIDE RECORDS SUMMARY | 2024-07-15 02:15 | XMS_ITS | Encounter Summary ---
Author Organization [facility] Healthcare Address [address] [place] [address] Care Team Providers Care Pensionholder Information Clerk Name Role Phone Christian Cardozo MD Primary Care Provider Encounter Details Date Type Department Care Team (Late st Contact Info) Description 06/29/2023 Orders Only [facility] Information Management [address] [place] [address] Scanning, Provider Social History Tobacco Use Types Packs/Day Years Used Date Smoking Tobacco: Never Smokeless Tobacco: Never Alcohol Use Standard Drinks/Week Comments No 0 (1 standard drink = 0.6 oz pur e alcohol) Comments Unknown Sex and Gender Information Value Date Recorded Sex Assigned at Not on file Legal Sex Female 1:11 PM RADIO ADJUSTER Gender Identity Not on file Sexual Orientation Not on file documented as of this encounter Plan of Treatment Not on file documented as of this encounter Procedures Procedure Name Priority Date/Time Associated Diagnosis Comments SCAN - LABS 06/29/2023 documented in this encounter Results * SCAN - LABS (06/29/2023) us Provider Scanning Final Result documented in this encounter Visit Diagnoses Not on filedocumented in this encounter Care Teams Pensionholder Information Clerk Relationship Specialty Start Date End Date Christian Cardozo MD [address] [address] PCP - General Family Medicine 06/14/18 documented as of this encounter
--- OUTSIDE RECORDS SUMMARY | 2024-07-15 02:15 | XMS_ITS | Encounter Summary ---
Author Organization [facility] Address [address] [place] [address] Phone Care Team Providers Care Windlace Machine Operator Name Role Phone Christian Cardozo MD Primary Care Provider Encounter Details Date Type Department Care Team (Latest Contact Info) Description 08/04/2023 Transcribe [facility] [address] [place] [address] Dhiraj Witt MD [address] [facility] [address] [place] [address] Encounter for other specified special examinations (Primary Dx) Social History Tobacco Use Types Packs/Day Years Used Date Smoking Tobacco: Never Smokeless Tobacco: Never Alcohol Use Standard Drinks/Week Comments Yes 0 (1 standard drink = 0.6 oz pur e alcohol) RARELY Comments Unknown Sex and Gender Information Value Date Recorded Sex Assigned at Not on file Legal Sex Female 9:20 AM CDT Gender Identity Not on file Sexual Orientation Not on file documented as of this encounter Plan of Treatment Scheduled Orders Name Type Priority Associated Diagnoses Orde r Schedule PROTIME (PT) (PROTHROMBIN TIME) Lab Routine Encounter for other specified special examinations Expected: 08/04/2023, Expires: 08/03/2024 documented as of this encounter Visit Diagnoses Diagnosis Encounter for other specified special examinations- Primary documented in this encounter Care Teams Windlace Machine Operator Relationship Specialty Start Date End Date Christian Cardozo MD [address] [place] [address] PCP - General Family Medicine 08/04/23 documented as of this encounter
--- OUTSIDE RECORDS SUMMARY | 2024-07-15 02:15 | XMS_ITS | Clinical Summary ---
Author Organization [facility] Address [address] [place] [address] Phone Care Team Providers Care Recorder Helper Seismograph Name Role Phone Christian Cardozo MD Primary Care Provider Allergies No known active allergies Medications amLODIPine (NORVASC) 10 MG Tablet Take 10 mg by mouth in the morning and at bedtime. TAKES 1/2 TABLET IN THE MORNING AND NIGHTLY Active aspirin EC 81 MG Tablet Delayed Response Take 81 mg by mouth daily. INSTRUCTED TO HOLD FOR 5 DAYS PRIOR TO SURGERY ON 10/31/2023 Active atorvastatin (LIPITOR) 40 MG Tablet Take 40 mg by mouth daily. Active citalopram (CeleXA) 10 MG Tablet Take 10 mg by mouth nightly as needed. Active ferrous sulfate 325 (65 Fe) MG Tablet Take 325 mg by mouth daily. Active irbesartan (AVAPRO) 300 MG Tablet Take 300 mg by mouth daily. Active latanoprost (XALATAN) 0.005 % Solution Place 1 Drop in affected eye(s) nightly. Active loratadine (CLARITIN) 10 MG Tablet Take 10 mg by mouth daily. Active metFORMIN (GLUCOPHAGE) 500 MG Tablet Take 500 mg by mouth 2 times daily (with meals). Active metoprolol tartrate (LOPRESSOR) 25 MG Tablet Take 25 mg by mouth 2 times daily. Active spironolactone (ALDACTONE) 25 MG Tablet Take 25 mg by mouth daily. Active warfarin (COUMADIN) 2 MG Tablet Take 2 mg by mouth daily. TAKES 2 TABLETS ON MONDAY TAKES 3 TABLETS ON ALL OTHER DAYS INSTRUCTED TO HOLD FOR 5 DAYS PRIOR TO SURGERY ON 10/31/2023 Active hydrALAZINE 25 MG Tablet Take 25 mg by mouth 3 times daily. Active Family History Medical History Relation Name Comments Cancer Father BETWEEN LUNGS Cancer Mother BREAST Relation Name Status Comments Father Mother Social History Tobacco Use Types Packs/Day Years Used Date Smoking Tobacco: Never Smokeless Tobacco: Never Alcohol Use Standard Drinks/Week Comments Not Currently 0 (1 standard drink = 0.6 oz pur e alcohol) Comments Unknown Sex and Gender Information Value Date Recorded Sex Assigned at Not on file Legal Sex Female 9:20 AM CDT Gender Identity Not on file Sexual Orientation Not on file Last Filed Vital Signs Vital Sign Reading Time Taken Comments Blood Pressure 151/60 10/31/2023 2:48 PM CDT Pulse 59 10/31/2023 2:48 PM CDT Temperature 36.3 C (97.3 F) 10/31/2023 2:48 PM CDT Respiratory Rate 16 10/31/2023 2:48 PM CDT Oxygen Saturation 93% 10/31/2023 2:48 PM CDT Inhaled Oxygen Concentration - - Weight 76.9 kg (169 lb 8 oz) 10/31/2023 8:36 AM CDT Height 165.1 cm (5' 5 ) 10/31/2023 8:36 AM CDT Body Mass Index 28.21 10/31/2023 8:36 AM CDT Plan of Treatment Health Maintenance Due Date Last Done Comments DEXA Bone Density 1940 Hepatitis C Virus (HCV) Screening 1940 TdaP Immunization 1940 Zoster Immunization (1 of 2) 12/13/1991 Respiratory Syncytial Virus (RSV) Immunization (Adult) (1 - 1-dose 75+ series) 2016 Influenza Immunization (#1) 2023 100 08/2022, 01/03/2022, 12/31/2020, Additional history exists SARS-COV-2 Immunization ( season) 2023 03/11/2021, 07/01/2020, 06/03/2020 Pneumococcal Immunization (50+ years) Completed 12/14/2017, 12/24/2012 Hepatitis B Immunization Aged Out No longer eligible based on patient's age to complete this topic Meningococcal Immunization (ACWY) Aged Out No longer eligible based on patient's age to complete this topic Rotavirus Immunization Aged Out No lo nger eligible based on patient's age to complete this topic Insurance [address] [place] [address] MEDICARE C BCBS PPO MODE [place] [id number] Care Teams Recorder Helper Seismograph Relationship Specialty Start Date End Date Christian Cardozo MD [address] [place] [address] PCP - General Family Medicine 08/04/23
--- OUTSIDE RECORDS SUMMARY | 2024-07-15 02:15 | XMS_ITS | Patient Health Record ---
Author Organization [facility] Address [address] [place], [place] [address] Care Team Providers Care Ski Instructor Name Role Phone FRANCISCO FUCHS Unavailable [phone] Christian Cardozo Unavailable Unavailable CARLYLE MARINO Unavailable [phone] Allergies No Known Allergies Reason For Referral No Information Medications Medication SIG (Take, Route, Frequency, Duration) Notes Start Date End Date Status citalopram 10 MG Oral Tablet ORAL citalopram 10 MG Oral TabletOriginal Medicationcitalopram 10 MG Oral Tablet *Reorder from [employer] for eRx and Interaction Alerts* 10/28/2016 Unknown valsartan 40 MG Oral Tablet [Diovan] ORAL valsartan 40 MG Oral Tablet [Diovan]Original Medicationvalsartan 40 MG Oral Tablet [Diovan] *Reorder from [employer] for eRx and Interaction Alerts* 10/28/2016 Unknown metformin hydrochloride 500 MG Oral Tablet ORAL metformin hydrochloride 500 MG Oral TabletOriginal Medicationmetformin hydrochloride 500 MG Oral Tablet *Reorder from [employer] for eRx and Interaction Alerts* 10/28/2016 Unknown ezetimibe 10 MG / simvastatin 10 MG Oral Tablet [Vytorin] ORAL ezetimibe 10 MG / simvastatin 10 MG Oral Tablet [Vytorin]Original Medicationezetimibe 10 MG / simvastatin 10 MG Oral Tablet [Vytorin] *Reorder from [employer] for eRx and Interaction Alerts* 10/28/2016 Unknown Immunizations Vaccine Route Administration Date Status Comme nts Influenza, high dose seasonal Unknown 01/02/2023 Admini stered Vital Signs Height-cm 165.1 cm 08/31/2023 Weight-kg 81.19 kg 08/31/2023 Height 65 in 08/31/2023 Weight 179 lbs 08/31/2023 BMI 29.78 kg/m2 08/31/2023 Encounters Encounter Location Date Provider Diagnosis [address] [id number] 05/30/2024 FRANCISCO FUCHS Tinea unguium B35.1 ; Pain in right toe(s) M79.674 ; Pain in left toe(s) M79.675 ; 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, bilateral legs I70.213 and Type 2 diabetes mellitus with other circulatory complications E11.[address] [id number] 08/31/2023 CARLYLE MARINO Other hammer toe(s) (acquired), right foot M20.41 ; Tinea unguium B35.1 ; Other hammer toe(s) (acquired), left foot M20.42 ; Pain in right toe(s) M79.674 ; Pain in left toe(s) M79.675 ; 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, bilateral legs I70.203 and Type 2 diabetes mellitus with diabetic peripheral angiopathy without gangrene E11.51 [facility] [address] [place], [place] [id number] 11/16/2023 CARLYLE MARINO Other hammer toe(s) (acquired), right foot M20.41 ; Tinea unguium B35.1 ; Other hammer toe(s) (acquired), left foot M20.42 ; Pain in right toe(s) M79.674 ; Pain in left toe(s) M79.675 ; 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, bilateral legs I70.203 and Type 2 diabetes mellitus with diabetic peripheral angiopathy without gangrene E11.[address] [id number] 01/18/2024 CARLYLE MARINO Other hammer toe(s) (acquired), right foot M20.41 ; Tinea unguium B35.1 ; Other hammer toe(s) (acquired), left foot M20.42 ; Pain in right toe(s) M79.674 ; Pain in left toe(s) M79.675 ; 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, bilateral legs I70.203 and Type 2 diabetes mellitus with diabetic peripheral angiopathy without gangrene E11.51 [facility] [address] [place], [place] [id number] 03/28/2024 FRANCISCO FUCHS Tinea unguium B35.1 ; Pain in right toe(s) M79.674 ; Pain in left toe(s) M79.675 ; 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 08/31/2023 Other hammer toe(s) (acquired), right foot (ICD-10 [...] were discussed, but conservative options were emphasized. 11/16/2023 Tinea unguium (ICD-10 - B35.1) Aseptic debridement [...] educated regarding both OTC and prescription treatments. 11/16/2023 Other hammer toe(s) (acquired), right foot (ICD-10 [...] prescription treatments. 01/18/2024 Other hammer toe(s) (acquired), right foot [...] were discussed, but conservative options were emphasized. 03/28/2024 Tinea unguium (ICD-10 - B35.1) NAIL DEBRIDEMENT: Nails 1-5 Bilateral were debrided extensively with nail nippers and emery board, reducing length and girth to pink healthy tissue with any subungual debris and necrotic tissue removed 05/30/2024 Tinea unguium (ICD-10 - B35.1) NAIL DEBRIDEMENT: Nails 1-5 Bilateral were debrided extensively with nail nippers and emery board, reducing length and girth to pink healthy tissue with any subungual debris and necrotic tissue removed 05/30/2024 Pain in right toe(s) (ICD-10 - M79.674) 03/28/2024 Pain in right toe(s) (ICD-10 - M79.674) 01/18/2024 Other hammer toe(s) (acquired), left foot (ICD-10 - M20.42) 11/16/2023 Other hammer toe(s) (acquired), left foot (ICD-10 - M20.42) 08/31/2023 Other hammer toe(s) (acquired), left foot (ICD-10 - M20.42) 08/31/2023 Pain in right toe(s) (ICD-10 - M79.674) 11/16/2023 Pain in right toe(s) (ICD-10 - M79.674) 01/18/2024 Pain in right toe(s) (ICD-10 - M79.674) 03/28/2024 Pain in left toe(s) (ICD-10 - M79.675) 05/30/2024 Pain in left toe(s) (ICD-10 - M79.675) 03/28/2024 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, bilateral legs (ICD-10 - I70.213) 05/30/2024 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, bilateral legs (ICD-10 - I70.213) 01/18/2024 Pain in left toe(s) (ICD-10 - M79.675) 11/16/2023 Pain in left toe(s) (ICD-10 - M79.675) 08/31/2023 Pain in left toe(s) (ICD-10 - M79.675) 08/31/2023 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, bilateral legs (ICD-10 - I70.203) Patient educated on risks and aggravating factors of PVD, including conservative treatment options such as a diet and exercise regimen to aid in slowing progression of vascular disease 11/16/2023 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, bilateral legs (ICD-10 - I70.203) Patient educated on risks and aggravating factors of PVD, including conservative treatment options such as a diet and exercise regimen to aid in slowing progression of vascular disease 01/18/2024 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 The patient was instructed to check his feet daily to report any problems or signs of infection immediately. The patient was provided written information on Diabetic Foot Care as well as the Amputation Prevention Guide. 05/30/2024 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 The patient was instructed to check his feet daily to report any problems or signs of infection immediately. The patient was provided written information on Diabetic Foot Care as well as the Amputation Prevention Guide. 01/18/2024 Type 2 diabetes mellitus with diabetic [...] but not limited to nausea, vomiting, fever. 11/16/2023 Type 2 diabetes mellitus with diabetic peripheral [...] but not limited to nausea, vomiting, fever. 08/31/2023 Type 2 diabetes mellitus with diabetic peripheral [...] to nausea, vomiting, fever. Plan Of Treatment Next Appt Details Provider Name:LIN VARGAS, 08/01/2024 12:50:00 PM, [address] [place] [address], [id number], Insurance Providers Payer Name Payer Address Payer Phone Subscriber Number Group Number Insured Name Patient Relationship to Insured Coverage Start Date Coverage End Date [id number] [place] [address] [id number] MELISSA VALERIO Self - patient is the insured
--- OUTSIDE RECORDS SUMMARY | 2024-07-15 02:15 | XMS_ITS ---
Author Organization [facility] Address [address] [place], [place] [id number] Care Team Providers Care Social Work Specialist Name Role Phone FRANCISCO FUCHS Unavailable [phone] Christian Cardozo Unavailable Unavailable REASON FOR VISIT Patient presents for at-risk foot care . The patient has painful toenails that are causing difficulty with ambulation and shoegear. The onset is gradual. The patient has diabetes mellitus Medications Medication SIG (Take, Route, Frequency, Duration) Notes Start Date End Date Status citalopram 10 MG Oral Tablet ORAL citalopram 10 MG Oral TabletOriginal Medicationcitalopram 10 MG Oral Tablet *Reorder from [employer] for eRx and Interaction Alerts* 10/28/2016 Unknown ezetimibe 10 MG / simvastatin 10 MG Oral Tablet [Vytorin] ORAL ezetimibe 10 MG / simvastatin 10 MG Oral Tablet [Vytorin]Original Medicationezetimibe 10 MG / simvastatin 10 MG Oral Tablet [Vytorin] *Reorder from [employer] for eRx and Interaction Alerts* 10/28/2016 Unknown metformin hydrochloride 500 MG Oral Tablet ORAL metformin hydrochloride 500 MG Oral TabletOriginal Medicationmetformin hydrochloride 500 MG Oral Tablet *Reorder from [employer] for eRx and Interaction Alerts* 10/28/2016 Unknown valsartan 40 MG Oral Tablet [Diovan] ORAL valsartan 40 MG Oral Tablet [Diovan]Original Medicationvalsartan 40 MG Oral Tablet [Diovan] *Reorder from [employer] for eRx and Interaction Alerts* 10/28/2016 Unknown Encounters Encounter Location Date Provider Diagnosis [facility] [address] [place], [place] [id number] 03/28/2024 FRANCISCO FUCHS Tinea unguium B35.1 ; Pain in right toe(s) M79.674 ; Pain in left toe(s) M79.675 ; 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, bilateral legs I70.213 and Type 2 diabetes mellitus with other circulatory complications E11.59 Assessments Encounter Date Diagnosis (ICD Code) Assessment Notes Treatment Notes Treatment Clinical Notes Section Notes 03/28/2024 Tinea unguium (ICD-10 - B35.1) NAIL DEBRIDEMENT: Nails 1-5 Bilateral were debrided extensively with nail nippers and emery board, reducing length and girth to pink healthy tissue with any subungual debris and necrotic tissue removed 03/28/2024 Pain in right toe(s) (ICD-10 - M79.674) 03/28/2024 Pain in left toe(s) (ICD-10 - M79.675) 03/28/2024 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 The patient was instructed to check his feet daily to report any problems or signs of infection immediately. The patient was provided written information on Diabetic Foot Care as well as the Amputation Prevention Guide. Plan Of Treatment Treatment Notes Assessment Notes Tinea unguium NAIL DEBRIDEMENT: Na ils 1-5 Bilateral were debrided extensively with nail nippers and emery board, reducing length and girth to pink healthy tissue with any subungual debris and necrotic tissue removed Type 2 diabetes mellitus wit h other circulatory complications Diabetic Foot Care: The patient was educated on diabetes and the lower extremity. The patient was instructed to check his feet daily to report any problems or signs of infection immediately. The patient was provided written information on Diabetic Foot Care as well as the Amputation Prevention Guide. Next Appt Details Follow Up: 10 - 12 weeks, Re ason: At-Risk Foot care, sooner if problems develop. Provider Name:LIN VARGAS, 08/01/2024 12:50:00 PM, [address] [place], [place], [id number], Progress Notes * MELISSA VALERIO EDOB:[birth year] (83 yo F)Acc No.[id number]:03/28/2024 Patient: MELISSA STEWART Provider: Antonio Fuchs DPM :1940 A ge:83 Y S ex:Female Date:03/28/2024 Address:[address] [place] [address] [place], [place] [id number] Subjective: * Chief Complaints: * Yahir mcwilliams presents for at-risk foot care . The patient has painful toenails that are causing difficulty with ambulation and shoegear. The onset is gradual. The patient has diabetes mellitus * HPI: H PI: General care Yahir mcwilliams presents to the office for diabetic foot care. Patient states that their nails are thickened, elongated and painful. Patient states that it is aggravated by shoe gear. Onset is gradual., Patient is taking prescription blood thinners., Date last seen by Dr. Cardozo was 02/2024., Initials [facility] , Patient presents to the office for diabetic foot care. Patient states that their nails are thickened, elongated and painful. Patient states that it is aggravated by shoe gear. Onset is gradual., Patient denies taking blood thinners., Date last seen by Dr. Olivera was July 2023., Initials JR. * ROS: G eneral / Constitutional: Patient denies w eakness. R espiratory: Patient denies c hronic cough, shortness of breath, sputum production. C ardiovascular: Patient denies c hest pain, history of [place], irregular heartbeat. M usculoskeletal: Patient complains of h ammertoes. P eripheral Vascular: Patient denies b lanching of skin, cold extremities, decreased sensation in extremities. S kin: Patient complains of f ungal nails, nail changes. ? N eurologic: Patient denies d izziness, gait abnormality, headache. * Medical History: * Surgical History: * Hospitalization/Major Diagno stic Procedure: * Medications: U nknowncitalopram 10 MG Oral Tablet ORAL , Notes to Pharmacist: citalopram 10 MG Oral TabletOriginal Medicationcitalopram 10 MG Oral Tablet *Reorder from [facility] for eRx and Interaction Alerts*ezetimibe 10 MG / simvastatin 10 MG Oral Tablet [Vytorin] ORAL , Notes to Pharmacist: ezetimibe 10 MG / simvastatin 10 MG Oral Tablet [Vytorin]Original Medicationezetimibe 10 MG / simvastatin 10 MG Oral Tablet [Vytorin] *Reorder from [facility] for eRx and Interaction Alerts*metformin hydrochloride 500 MG Oral Tablet ORAL , Notes to Pharmacist: metformin hydrochloride 500 MG Oral TabletOriginal Medicationmetformin hydrochloride 500 MG Oral Tablet *Reorder from [facility] for eRx and Interaction Alerts*valsartan 40 MG Oral Tablet [Diovan] ORAL , Notes to Pharmacist: valsartan 40 MG Oral Tablet [Diovan]Original Medicationvalsartan 40 MG Oral Tablet [Diovan] *Reorder from [facility] for eRx and Interaction Alerts*Medication List reviewed and reconciled with the patientUnknown citalopram 10 MG Oral Tablet ORAL , Notes to Pharmacist: citalopram 10 MG Oral TabletOriginal Medicationcitalopram 10 MG Oral Tablet *Reorder from [facility] for eRx and Interaction Alerts*Unknown ezetimibe 10 MG / simvastatin 10 MG Oral Tablet [Vytorin] ORAL , Notes to Pharmacist: ezetimibe 10 MG / simvastatin 10 MG Oral Tablet [Vytorin]Original Medicationezetimibe 10 MG / simvastatin 10 MG Oral Tablet [Vytorin] *Reorder from [facility] for eRx and Interaction Alerts*Unknown metformin hydrochloride 500 MG Oral Tablet ORAL , Notes to Pharmacist: metformin hydrochloride 500 MG Oral TabletOriginal Medicationmetformin hydrochloride 500 MG Oral Tablet *Reorder from [facility] for eRx and Interaction Alerts*Unknown valsartan 40 MG Oral Tablet [Diovan] ORAL , Notes to Pharmacist: valsartan 40 MG Oral Tablet [Diovan]Original Medicationvalsartan 40 MG Oral Tablet [Diovan] *Reorder from [facility] for eRx and Interaction Alerts*Medication List reviewed and reconciled with the patient Objective: * Vitals: * Examination: P hysical Examination: General appearance: A lert, pleasant, well-nourished and in no acute distress. D ermatologic: Skin findings: S kin is thin, atrophic and lacking pedal hair. Nail pathology: N ails 1, 2, 3, 4, and 5 bilateral are elongated, thick, discolored, and dystrophic with subungual debris. They are painful to palpation. ? V ascular: Dorsalis pedis pulse: 1 /4 b ilateral. Posterior tibial pulse: 0 /4 bilateral. Capillary refill: g reater than 3 seconds. Edema: N o edema bilateral. N eurologic: Gross sensation G rossly intact to light touch. There is negative Tinel's sign. M usculoskeletal: Muscle Strength M uscle strength is 5/5 in regards to dorsiflexion, plantarflexion, inversion, and eversion in bilateral lower extremities. ? Assessment: * Assessment: 1. T inea unguium - B35.1 (Primary) 2 . P ain in right toe(s) - M79.674? 3. P ain in left toe(s) - M79.675 4 . A therosclerosis of cheesh-na arteries of extremities with intermittent claudication, bilateral legs - I70.213 5 . 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 T ype 2 diabetes mellitus with other circulatory complications Notes: Diabetic Foot Care: The patient was educated on diabetes and the lower extremity. The patient was instructed to check his feet daily to report any problems or signs of infection immediately. The patient was provided written information on Diabetic Foot Care as well as the Amputation Prevention Guide. * Procedure Codes: 1 1721 DEBRIDE NAIL, 6 OR MORE, Modifiers: Q8 * Follow Up: 1 0 - 12 weeks (Reason: At-Risk Foot care, sooner if problems develop.) * Billing Information: * Visit Code: * Procedure Codes: 19147 DEBRIDE NAIL, 6 OR MORE. Modifiers: Q8 * [employer] Sign off status: Completed true * Provider: Antonio Fuchs DPM Date: 0 03/28/2024 Generated for Jacquie lord/Robert/Ceeitting on: 0 07/15/2024 02:15 AM CDT History [...] Date last seen by Dr. Cardozo was 02/2024., Initials [facility] , Patient presents to the office for diabetic foot care. Patient states that their nails are thickened, elongated and painful. Patient states that it is aggravated by shoe gear. Onset is gradual., Patient denies taking blood thinners., Date last seen by Dr. Olivera was July 2023., Initials JR Examination Category Sub-Category Detail Notes Category Not es Dermatologic Skin findings: Skin is thin, at rophic and lacking pedal hair Nail pathology: Nails 1, 2, 3, 4, an d 5 bilateral are elongated, thick, discolored, and dystrophic with subungual debris. They are painful to palpation Neurologic Gross sensation Grossly intact t o light touch. There is negative Tinel's sign Vascular Dorsalis pedis pulse: 1/4 bilateral Edema: No edema bilateral Capillary refill: greater than 3 secon ds Posterior tibial pulse: 0/4 bilateral Physical Examination General appearance: Alert, pleasant, well-nourished and in no acute distress Musculoskeletal Muscle Strength Muscle strength is 5/5 in regards to dorsiflexion, plantarflexion, inversion, and eversion in bilateral lower extremities
--- OUTSIDE RECORDS SUMMARY | 2024-07-15 02:16 | XMS_ITS | Referral Summary ---
Author Organization [place] [address] [place] [phone] Care Team Providers Care Creative Services Manager Name Role Phone Christian Cardozo MD Primary Care Provider Encounters Date Type Department Care Team Description 06/17/2024 Anticoagulation Visit [facility] Cardiology [address] [place] [address] [address] [place] [phone] Elda Mullins RN 06/13/2024 Anticoagulation Visit [address] [place] [phone] Didi Wills, RN 05/06/2024 Anticoagulation Visit [address] [place] [phone] Didi Wills, RN 05/03/2024 Orders Only [facility] [place] Health Information Management [address] [place] [address] Twin Brar MD 04/25/2024 Anticoagulation Visit [facility] Cardiology [address] [place] [address] [address] [place] [phone] Didi Wills, RN 04/25/2024 Telephone [facility] Cardiology [address] [place] [address] [address] [place] [phone] Twin Brar MD INR results from Last 3 Months Allergies No known active allergies Medications metFORMIN (GLUCOPHAGE) 500 mg tablet Take 1 tablet (500 mg total) by mouth 2 (two) times a day with meals Active citalopram (CeleXA) 10 mg tablet Take 1 tablet (10 mg total) by mouth daily Active atorvastatin (LIPITOR) 40 mg tablet Take 1 tablet (40 mg total) by mouth daily Active travoprost (TRAVATAN Z) 0.004 % drops Administer into both eyes nightly Active aspirin 81 mg chewable tablet Take 1 tablet (81 mg total) by mouth daily Active cetirizine (ZyrTEC) 10 mg tablet Take 1 tablet (10 mg total) by mouth daily Active loratadine (CLARITIN) 10 mg tablet Take 1 tablet (10 mg total) by mouth daily Active irbesartan (AVAPRO) 300 mg tablet Take 1 tablet (300 mg total) by mouth nightly Active latanoprost (XALATAN) 0.005 % ophthalmic solution Administer 1 drop into both eyes nightly Active albuterol HFA (PROVENTIL HFA,VENTOLIN HFA,PROAIR HFA) 90 mcg/actuation inhaler Active furosemide (LASIX) 20 mg tablet TAKE 1 TABLET BY MOUTH ONCE DAILY IN THE MORNING Active amLODIPine (NORVASC) 10 mg tablet Take 1 tablet (10 mg total) by mouth daily 021 Active lansoprazole (PREVACID) 15 mg capsule Take 1 capsule (15 mg total) by mouth daily Active FeroSuL 325 mg (65 mg iron) tablet Take 1 tablet (325 mg total) by mouth daily 022 Active spironolactone (ALDACTONE) 25 mg tablet Take 1 tablet (25 mg total) by mouth daily 022 Active hydrALAZINE (APRESOLINE) 25 mg tablet Take 1 tablet (25 mg total) by mouth 3 (three) times a day Active metoprolol tartrate (LOPRESSOR) 25 mg immediate release tablet Take 1/2 (one-half) tablet by mouth twice daily 90 tablet 3 024 Active warfarin (COUMADIN) 2 mg tabletIndications: Chronic anticoagulation TAKE 2 TABLETS BY MOUTH ONCE DAILY ON MONDAY AND MONDAY, THEN TAKE 3 TABLETS ON ALL OTHER DAYS OR DIRECTED 76 tablet 025 Active warfarin (COUMADIN) 2 mg tabletIndications: Chronic anticoagulation TAKE TWO TABLETS BY MOUTH ONCE DAILY ON MONDAY AND MONDAY, THEN TAKE 3 TABLETS ON ALL OTHER DAYS OR DIRECTED 76 tablet 025 2024 Discontinued Active Problems Problem Noted Date Diagnosed Date Hyperglycemia 05/10/2018 Delirium 05/10/2018 Atrial fibrillation with RVR 05/10/2018 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/07/2018 Overview (05/08/2018): Added automatically from request for surgery [id number] S/P CABG (coronary artery bypass graft) Type 2 diabetes mellitus with other specified co mplication Social History Tobacco Use Types Packs/Day Years Used Date Smoking Tobacco: Never Smokeless Tobacco: Never Tobacco Cessation:Counseling Given: Not Answered Alcohol Use Standard Drinks/Week Comments No 0 (1 standard drink = 0.6 oz pur e alcohol) Comments Unknown Sex and Gender Information Value Date Recorded Sex Assigned at Not on file Legal Sex Female 1:11 PM LEATHER CURRIER Gender Identity Not on file Sexual Orientation Not on file Last Filed Vital Signs Vital Sign Reading Time Taken Comments Blood Pressure 132/74 01/16/2024 2:26 PM CDT Pulse 57 01/16/2024 2:26 PM CDT Temperature 36.7 C (98 F) 09/25/2018 12:07 PM CDT Respiratory Rate 14 09/25/2018 12:07 PM CDT Oxygen Saturation 96% 01/16/2024 2:26 PM CDT Inhaled Oxygen Concentration - - Weight 77.7 kg (171 lb 3.2 oz) 01/16/2024 2:26 P M CDT Height 165.1 cm (5' 5 ) 01/16/2024 2:26 PM CDT Body Mass Index 28.49 01/16/2024 2:26 PM CDT Plan of Treatment Not on file Procedures Procedure Name Priority Date/Time Associated Diagnosis Comments PROTIME-INR Routine 06/11/2024 SCAN - LABS 05/03/2024 PROTIME-INR Routine 05/03/2024 PROTIME-INR Routine 04/22/2024 LIPID PANEL Routine 01/08/2024 8:58 AM CDT EGFR STAT 05/16/2018 9:14 AM LEATHER CURRIER HEMOGLOBIN A1C Routine 05/07/2018 7:28 PM LEATHER CURRIER from Last 3 Months or Most Recently Relevant to Health Maintenance Results * (ABNORMAL) Protime-INR (06/11/2024) INR 2.50(A) 0.90 - 1.10 EXTERNAL LAB Blood Result [facility] Historical Provider MD LAB BLOOD ORDERABLES Shelley l Result EXTERNAL LAB * SCAN - LABS (05/03/2024) Result [facility] Twin Brar MD Final Re sult * (ABNORMAL) Protime-INR (05/03/2024) INR 2.10(A) 0.90 - 1.10 EXTERNAL LAB Blood Result [facility] Historical Provider MD LAB BLOOD ORDERABLES Shelley l Result Performing Organization Address City/[facility]/ZIP Co de Phone Number EXTERNAL LAB * (ABNORMAL) Protime-INR (04/22/2024) INR 1.20(A) 0.90 - 1.10 EXTERNAL LAB Blood Result [facility] Historical Provider MD LAB BLOOD ORDERABLES Shelley l Result EXTERNAL LAB * Lipid panel (01/08/2024 8:58 AM CDT) SCRIBED Cholesterol, Total 150 <200 EXTERNAL LAB SCRIBED HDL 39 >40 EXTERNAL LAB SCRIBED LDL 63 <100 EXTERNAL LAB SCRIBED Triglycerides 242 <150 EXTERNAL LAB Blood Historical Provider LAB BLOOD ORDERABLES Edit ed Result - Final EXTERNAL LAB * eGFR (05/16/2018 9:14 AM LEATHER CURRIER) eGFR 49 mL/min/1.7 3 m2 JACOB SILVER Comment: Interpretive Data Reference Interval Normal >/= 90 mL/min/1.73m2 Mildly decreased* 60 - 89 mL/min/1.73m2 Mildly to moderately decreased 45 - 59 mL/min/1.73m2 Moderately to severely decreased 30 - 44 mL/min/1.73m2 Severely decreased 15 - 29 mL/min/1.73m2 Kidney Failure < 15 mL/min/1.73m2 *Relative to young adult level If -[place] multiply value by 1.16. Estimated glomerular filtration rate is determined by the CKD-EPI equation recommended by the National Kidney Foundation (KDIGO 2012 Clinical Practice Guideline for the Evaluation and Management of Chronic Kidney Disease. Kidney Intnl Suppl Mar 2012;3:1). The CKD-EPI equation should not be used for patients with unstable renal function and has not been validated in children and those over 70. Current interpretive data was last reviewed 2015. Blood specimen (specimen) 05/16/2018 9:14 AM LEATHER CURRIER 05/16/2018 9:16 AM LEATHER CURRIER Narrative JACOB - 05/16/2018 9:47 AM LEATHER CURRIER Pari Candelario NP LAB BLOOD ORDERABLES Shelley l Result [facility] [address] Department of Laboratories [place], [place] [phone] * (ABNORMAL) Hemoglobin A1c (05/07/2018 7:28 PM LEATHER CURRIER) Hgb A1C 9.0(H) 4.0 - 5.6 % JACOB SILVER Estimated Average Glucose 212 mg/dL JACOB SILVER Comment: The ADA recommends reporting an estimated Average Glucose (eAG) with all Hemoglobin A1c results using the equation derived from a study of 507 normal and diabetic adults. Minority populations were underrepresented and children were not included. (Diabetes Care 31:5279-2484, 2008). The eAG is not equivalent to a fasting glucose. Blood specimen (specimen) 05/07/2018 7:28 PM LEATHER CURRIER 05/07/2018 8:02 PM LEATHER CURRIER Narrative JACOB SILVER - 05/07/2018 8:18 PM LEATHER CURRIER Luke Magana MD LAB BLOOD ORDERABLES Final R esult JACOB [address] [place] [address] from Last 3 Months or Most Recently Relevant to Health Maintenance Insurance MEDICARE [facility] MEDICARE [facility] [employer] CHOICE MEDICARE PPO Advance Directives For more information, please contact: [phone] * Full Code (Latest Code Status on File) Date Activated Date Inactivated Comments 05/18/2018 7:34 PM * Full Code Date Activated Date Inactivated Comments 05/08/2018 3:11 PM 05/16/2018 5:35 PM Care Teams Creative Services Manager Relationship Specialty Start Date End Date Christian Cardozo MD [address] [facility] [facility] [address] [facility] [address] [place] [phone] PCP - General Family Medicine 06/14/18
--- OUTSIDE RECORDS SUMMARY | 2024-07-15 02:16 | XMS_ITS | Clinical Summary ---
Author Organization [facility] Address [address] [place] [address] Care Team Providers Care Seismic Prospecting Observer Helper Name Role Phone Christian Cardozo MD Primary Care Provider [phone] Allergies No known active allergies Medications amLODIPine 10 MG tablet Take 10 mg by mouth daily. 2 Active aspirin 81 MG chewable tablet Chew 81 mg by mouth daily. Active atorvastatin 40 MG tablet 2 Active cetirizine 10 MG tablet Take 10 mg by mouth daily. Active citalopram 10 MG tablet 1 Active ezetimibe-simva statin (VYTORIN) 10-40 MG tablet Take 1 tablet by mouth daily. Active FEROSUL 325 (65 Fe) MG tablet Take 1 tablet by mouth daily. 2 Active furosemide 20 MG tablet 1 Active irbesartan 300 MG tablet Take 300 mg by mouth daily. 2 Active lansoprazole 15 MG capsule Take 15 mg by mouth daily. Active latanoprost 0.005 % ophthalmic solution 1 Active meloxicam 7.5 MG tablet Take 1 tablet by mouth 2 (two) times daily. 4 Active metFORMIN 500 MG tablet 2 Active metoprolol tartrate 25 MG tablet Take 12.5 mg by mouth 2 (two) times daily. 2 Active valsartan-hydro CHLOROthiazide 320-25 MG tablet Take 1 tablet by mouth daily. 4 Active spironolactone 25 MG tablet Take 25 mg by mouth daily. 2 Active warfarin 2 MG tabletIndicatio ns:mwf, 8 mg; remaining days 6 mg Indications: mwf, 8 mg; remaining days 6 mg Active Encounters Date Type Department Care Team Description 06/11/2024 10:32 AM CDT - 06/11/2024 11:59 PM CDT Hospital Encounter [facility] [address] [place] [address] Krissy Dumont MD Discharge Disposition: Home or Self Care (Routine Discharge) 06/11/2024 10:31 AM CDT Hospital Encounter [facility] [address] [place] [address] Christian Cardozo MD Discharge Disposition: Home or Self Care (Routine Discharge) 06/11/2024 10:29 AM CDT - 06/11/2024 10:30 AM CDT Hospital Encounter [facility] [address] [place] [address] Twin Brar MD Discharge Disposition: Home or Self Care (Routine Discharge) 06/11/2024 Orders Only [facility] [address] [place] [address] Krissy Dumont MD 06/11/2024 Travel 05/03/2024 2:15 PM LEGAL COLLECTOR - 05/03/2024 11:59 PM LEGAL COLLECTOR Hospital Encounter [facility] [address] [place] [address] Twin Brar MD Discharge Disposition: Home or Self Care (Routine Discharge) 05/03/2024 Orders Only [facility] [address] [place] [address] Twin Brar MD 05/03/2024 Travel from Last 3 Months Family History Medical History Relation Comments Breast Cancer Mother Relation Status Comments Mother Social History Tobacco Use Types Packs/Day Years Used Date Smoking Tobacco: Never Smokeless Tobacco: Never Alcohol Use Standard Drinks/Week Comments Not Currently 0 (1 standard drink = 0.6 oz pur e alcohol) Comments No Sex and Gender Information Value Date Recorded Sex Assigned at Female 05/03/2024 2:10 PM LEGAL COLLECTOR Legal Sex Female 5:08 PM CDT Gender Identity Not on file Sexual Orientation Not on file Last Filed Vital Signs Vital Sign Reading Time Taken Comments Blood Pressure 156/108 06/24/2021 3:30 PM CDT Pulse 55 06/24/2021 12:27 PM CDT Temperature 36 C (96.8 F) 06/24/2021 12:27 PM CDT Respiratory Rate 18 06/24/2021 12:27 PM CDT Oxygen Saturation 98% 06/24/2021 3:40 PM CDT Inhaled Oxygen Concentration - - Weight 84.8 kg (187 lb) 06/24/2021 12:27 PM CDT Height 165.1 cm (5' 5 ) 06/24/2021 12:27 PM CDT Body Mass Index 31.12 06/24/2021 12:27 PM CDT Plan of Treatment Health Maintenance Due Date Last Done Comments Diabetes: Retinopathy Eye Exam 12/13/1959 DTaP, Tdap and Td Vaccines ( 1 - Tdap) 1960 Zoster Vaccines (1 of 2) 12/13/1991 Annual Medicare Wellness Visit 2006 Dexa Scan (General) 2006 RSV Immunization or 60+ Years (1 - 1-dose 75+ series) 2016 Pneumococcal Vaccine: 50+ Years (2 of 2 - PPSV23) 02/08/2018 12/14/2017 Hemoglobin A1C 11/04/2018 05/07/2018, 05/09/2012 COVID-19 Vaccine ( - 2023-2 5 season) 2023 Lipid Panel 06/11/2025 06/11/2024 Meningococcal B Vaccine Aged Out No l onger eligible based on patient's age to complete this topic Meningococcal Vaccine Aged Out No patricia brooks eligible based on patient's age to complete this topic RSV Immunizations Under 20 Months Aged Out No longer eligible b ased on patient's age to complete this topic Procedures Procedure Name Priority Date/Time Associated Diagnosis Comments ALBUMIN URINE RANDOM W/CREATININE Routine 06/11/2024 10:50 AM CDT Type 2 diabetes mellitus with ESRD (end-stage renal disease) ([facility]) Inadequately controlled diabetes mellitus ([facility]) Encounter for long-term (current) use of insulin ([facility]) Other specified abnormal findings of blood chemistry Chronic kidney disease, unspecified VITAMIN D, 25 OH Routine 06/11/2024 10:3 9 AM CDT Type 2 diabetes mellitus with ESRD (end-stage renal disease) ([facility]) Inadequately controlled diabetes mellitus ([facility]) Encounter for long-term (current) use of insulin ([facility]) Other specified abnormal findings of blood chemistry Chronic kidney disease, unspecified VITAMIN B-12 Routine 06/11/2024 10:39 AM CDT Type 2 diabetes mellitus with ESRD (end-stage renal disease) ([facility]) Inadequately controlled diabetes mellitus ([facility]) Encounter for long-term (current) use of insulin ([facility]) Other specified abnormal findings of blood chemistry Chronic kidney disease, unspecified LIPID PANEL Routine 06/11/2024 10:39 AM CDT Type 2 diabetes mellitus with ESRD (end-stage renal disease) ([facility]) Inadequately controlled diabetes mellitus ([facility]) Encounter for long-term (current) use of insulin ([facility]) Other specified abnormal findings of blood chemistry Chronic kidney disease, unspecified PROTHROMBIN TIME, VENOUS Routine 06/11/2024 10:39 AM CDT Atrial fibrillation with RVR ([facility]) PROTHROMBIN TIME, VENOUS Routine 05/03/2024 2:33 PM LEGAL COLLECTOR Atrial fibrillation with RVR ([facility]) HEMOGLOBIN, GLYCOSYLATED Routine 05/09/2012 11:40 AM LEGAL COLLECTOR from Last 3 Months or Most Recently Relevant to Health Maintenance Results * (ABNORMAL) MICROALBUMIN CREATININE RATIO (MICROALBUMIN/ALBUMIN) (06/11/2024 10:50 AM CDT) CREATININE (U) 90.5 28 - 217 MG/DL 06/11/2024 11:28 AM CDT [facility] MICROALBUMIN (U) 75.9(H) <2.0 mg/dL 06/11/2024 11:28 AM CDT [facility] ALBUMIN/CREAT RATIO 838.8(H) <30.0 MG/G 06/11/2024 11:28 AM CDT [facility] URINE SPECIMEN / Unknown 06/11/2024 10:50 AM CDT Krissy Dumont MD URINE ORDERABLES Final Result [facility] [address] [place] [address], [place] [phone] * (ABNORMAL) VITAMIN B-12 (06/11/2024 10:39 AM CDT) VITAMIN B12 S/P/B 1,501(H) 193 - 986 PG/ML 06/11/2024 11:29 AM CDT [facility] 06/11/2024 10:3 9 AM CDT Krissy Dumont MD LABORATORY Final Result [facility] [address] [place] [address], [place] [phone] * (ABNORMAL) PROTIME/INR, VENOUS (06/11/2024 10:39 AM CDT) Only the most recent of2 resultswithin the time period is included. PROTIME 28.2(H) 9.1 - 12.4 SEC 06/11/2024 11:09 AM CDT [facility] INR 2.5 06/11/2024 11:09 AM CDT [facility] Comment: Recommend INR ranges for Oral Anticoagulant Therapy: Mechanical Cardiac Values 2.5-3.5 All others indication 2.0-3.0 06/11/2024 10:3 9 AM CDT us Twin Brar MD LABORATORY Final Res ult [facility] [address] [place] [address], * (ABNORMAL) LIPID PANEL (06/11/2024 10:39 AM CDT) CHOLESTEROL 162 <200.0 MG/DL 06/11/2024 11:04 AM CDT [facility] TRIGLYCERIDES 173(H) <150 MG/DL 06/11/2024 11:04 AM T [facility] HDL 44 >40.0 MG/DL 06/11/2024 11:04 AM T [facility] LDL (CALCULATED) 83 <100 MG/DL 06/11/2024 11:04 AM T [facility] NON HDL CHOLESTEROL 118 <130 MG/DL 06/11/2024 11:04 AM T [facility] CHOL/HDL RATIO 3.7 0.0 - 4.5 06/11/2024 11:04 AM T [facility] VLDL CALCULATION 35 5 - 55 MG/DL 06/11/2024 11:04 AM T [facility] LIPID INTERPRETATION 06/11/2024 11:04 AM T [facility] Comment: [facility] CON[facility]ENS[facility] REPORT RECOMMENDATIONS: ADULT CHILD LOW RISK: CHOLESTEROL <200 <170 TRIGLYCERIDE <150 --- HDL >=60 --- LDL <100 <110 BORDERLINE: CHOLESTEROL 200-239 170-199 TRIGLYCERIDE 150-199 --- HDL 40-59 --- LDL 100-159 110-129 HIGH RISK: CHOLESTEROL >=240 >=200 TRIGLYCERIDE >=200 --- HDL <40 --- LDL >=160 >=130 06/11/2024 10:3 9 AM CDT Krissy Dumont MD LABORATORY Final Result Performing Organization Address [facility]/ZIP Co de Phone Number [facility] [address] [place] [address], [place] [phone] * (ABNORMAL) VITAMIN D, 25 OH (06/11/2024 10:39 AM CDT) VITAMIN D 25 HYDROXY S/P/B 25(L) 30 - 100 NG/ML 06/11/2024 11:42 AM CDT [facility] Comment: INTERPRETATION DEFICIENT <20 INSUFFICIENT 20-29 SUFFICIENT 30-100 06/11/2024 10:3 9 AM CDT Krissy Dumont MD LABORATORY Final Result Performing Organization Address [facility] Co de Phone Number [facility] [address] [place] [address], [place] [phone] * (ABNORMAL) HEMOGLOBIN, GLYCOSYLATED (05/09/2012 11:40 AM LEGAL COLLECTOR) Pathologist [facility] HGB A1C 6.9 INCREASED RISK OF DIABETES <5.7% NON-DIABETES 5.7-6.4% INCREASED RISK FOR FUTURE DIABETES > OR = 6.5 CONSISTENT WITH DIABETES STANDARDS OF MEDICAL CARE IN DIABETES-2010 DIABETES CARE, 33(SUPP 1): S1-S61,2010 (H) <5.7 % [employer] TO EPIC CONVERSION 05/09/2012 11:4 0 AM LEGAL COLLECTOR 05/09/2012 11:40 AM LEGAL COLLECTOR Narrative [employer] TO EPIC CONVERSION - 05/09/2012 12:21 PM LEGAL COLLECTOR Result Communication: No patient communication needed at this time Ahsan Cash MD LABORATORY Final Result Performing Organization Address City/[facility]/ZIP Co de Phone Number [employer] TO EPIC CONVERSION from Last 3 Months or Most Recently Relevant to Health Maintenance Insurance [employer] Care Teams Seismic Prospecting Observer Helper Relationship Specialty Start Date End Date Christian Cardozo MD [address] [place] [address] PCP - General FAMILY PRACTICE 03/14/24
--- OUTSIDE RECORDS SUMMARY | 2024-07-15 02:16 | XMS_ITS ---
Author Organization [facility] Address [address] [place], [place] [id number] Care Team Providers Care Radiological Technician Name Role Phone FRANCISCO FUCHS Unavailable [phone] Christian Cardozo Unavailable Unavailable Allergies No Known Allergies REASON FOR VISIT Patient presents for at-risk foot care . The patient has painful toenails that are causing difficulty with ambulation and shoegear. The onset is gradual. The patient has diabetes mellitus Medications Medication SIG (Take, Route, Frequency, Duration) Notes Start Date End Date Status citalopram 10 MG Oral Tablet ORAL citalopram 10 MG Oral TabletOriginal Medicationcitalopram 10 MG Oral Tablet *Reorder from [facility] for eRx and Interaction Alerts* 10/28/2016 Unknown valsartan 40 MG Oral Tablet [Diovan] ORAL valsartan 40 MG Oral Tablet [Diovan]Original Medicationvalsartan 40 MG Oral Tablet [Diovan] *Reorder from [facility] for eRx and Interaction Alerts* 10/28/2016 Unknown metformin hydrochloride 500 MG Oral Tablet ORAL metformin hydrochloride 500 MG Oral TabletOriginal Medicationmetformin hydrochloride 500 MG Oral Tablet *Reorder from [facility] for eRx and Interaction Alerts* 10/28/2016 Unknown ezetimibe 10 MG / simvastatin 10 MG Oral Tablet [Vytorin] ORAL ezetimibe 10 MG / simvastatin 10 MG Oral Tablet [Vytorin]Original Medicationezetimibe 10 MG / simvastatin 10 MG Oral Tablet [Vytorin] *Reorder from [facility] for eRx and Interaction Alerts* 10/28/2016 Unknown Encounters Encounter Location Date Provider Diagnosis [facility] [address] [place], [place] [id number] 05/30/2024 FRANCISCO FUCHS Tinea unguium B35.1 ; Pain in right toe(s) M79.674 ; Pain in left toe(s) M79.675 ; Atherosclerosis of [place] arteries of extremities with intermittent claudication, bilateral legs I70.213 and Type 2 diabetes mellitus with other circulatory complications E11.59 Assessments Encounter Date Diagnosis (ICD Code) Assessment Notes Treatment Notes Treatment Clinical Notes Section Notes 05/30/2024 Tinea unguium (ICD-10 - B35.1) NAIL DEBRIDEMENT: Nails 1-5 Bilateral were debrided extensively with nail nippers and emery board, reducing length and girth to pink healthy tissue with any subungual debris and necrotic tissue removed 05/30/2024 Pain in right toe(s) (ICD-10 - M79.674) 05/30/2024 Pain in left toe(s) (ICD-10 - M79.675) 05/30/[address] [place] arteries of extremities with intermittent claudication, bilateral legs (ICD-10 - I70.213) 05/30/2024 Type 2 diabetes mellitus with other [...] Provider Name:LIN VARGAS, 08/01/2024 12:50:00 PM, [address] [place], [place], [id number], Progress Notes * MELISSA VALERIO EDOB:[birth year] (83 yo F)Acc No.[id number]:05/30/2024 Patient: MELISSA STEWART Provider: Antonio Fuchs DPM :1940 A ge:83 Y S ex:Female Date:05/30/2024 Address:[address] [place] [address] [place], [place] [id number] Subjective: * Chief Complaints: * 1 . Patient presents for at-risk foot care . The patient has painful toenails that are causing difficulty with ambulation and shoegear. The onset is gradual. The patient has diabetes mellitus. * HPI: H PI: General care P atient presents to the office for diabetic foot care. Patient states that their nails are thickened, elongated and painful. Patient states that it is aggravated by shoe gear. Onset is gradual., Patient is taking prescription blood thinners., Date last seen by Dr. Cardozo was January 2024., Initials LB. * ROS: G eneral / Constitutional: Patient denies w eakness. R espiratory: Patient denies c hronic cough, shortness of breath, sputum production. C ardiovascular: Patient denies c hest pain, history of CO, irregular heartbeat. M usculoskeletal: Patient complains of h ammertoes. P eripheral Vascular: Patient denies b lanching of skin, cold extremities, decreased sensation in extremities. S kin: Patient complains of f ungal nails, nail changes. ? N eurologic: Patient denies d izziness, gait abnormality, headache. * Medical History: * Family History: F ather: PRN - Father: :: Cancer,,known absent . M other: PRN - Mother: :: Cancer,,known absent , :: Diabetes,,known absent . * Social History: M igrated Social History: M igrated Social History: Smoking Status : Never smoked , History of tobacco use :. * Medications: U nknown citalopram 10 MG Oral Tablet ORAL , Notes to Pharmacist: citalopram 10 MG Oral TabletOriginal Medicationcitalopram 10 MG Oral Tablet *Reorder from [facility] for eRx and Interaction Alerts*, Unknown ezetimibe 10 MG / simvastatin 10 MG Oral Tablet [Vytorin] ORAL , Notes to Pharmacist: ezetimibe 10 MG / simvastatin 10 MG Oral Tablet [Vytorin]Original Medicationezetimibe 10 MG / simvastatin 10 MG Oral Tablet [Vytorin] *Reorder from [facility] for eRx and Interaction Alerts*, Unknown metformin hydrochloride 500 MG Oral Tablet ORAL , Notes to Pharmacist: metformin hydrochloride 500 MG Oral TabletOriginal Medicationmetformin hydrochloride 500 MG Oral Tablet *Reorder from [facility] for eRx and Interaction Alerts*, Unknown valsartan 40 MG Oral Tablet [Diovan] ORAL , Notes to Pharmacist: valsartan 40 MG Oral Tablet [Diovan]Original Medicationvalsartan 40 MG Oral Tablet [Diovan] *Reorder from [facility] for eRx and Interaction Alerts*, Medication List reviewed and reconciled with the patient * Allergies: N .K.D.A. Objective: * Vitals: * Examination: P hysical [...] - M79.675 4 . A therosclerosis of [place] croix arteries of extremities with intermittent claudication, bilateral [...] well as the Amputation Prevention Guide. * Follow Up: 1 0 - 12 weeks (Reason: At-Risk Foot care, sooner if problems develop.) * Billing Information: * Visit Code: 79480 Office Visit, Est Pt., Level 3. * Procedure Codes: * Electronic signature of FRANCISCO FUCHS DPM on 07/15/2024 at 02:15 AM CDT Sign off status: Pending * Provider: Antonio Fuchs DPM Date: 0 05/30/2024 Generated for Jacquie lord/Robert/Rhiannon on: 0 07/15/2024 [...] Date last seen by Dr. Cardozo was January 2024., Initials LB Examination Category Sub-Category Detail Notes Category Not [...]
--- OUTSIDE RECORDS SUMMARY | 2024-07-15 02:16 | XMS_ITS | Encounter Summary ---
Author Organization [facility] Address [facility] [place] [address] Care Team Providers Care Colorer Name Role Phone Bianca Silverman Primary Care Provider [phone] Christian Cardozo MD Primary Care Provider [phone] Encounter Details Date Type Department Care Team (Late st Contact Info) Description 01/27/2014 Abstract [facility] CONVERSION [address] [place] [address] , Generic ConversionMD Social History Tobacco Use Types Packs/Day Years Used Date Smoking Tobacco: Never Assessed Comments Unknown Sex and Gender Information Value Date Recorded Sex Assigned at Female 05/03/2024 2:10 PM DIRECTOR OF SAFETY Legal Sex Female 5:08 PM CDT Gender Identity Not on file Sexual Orientation Not on file documented as of this encounter Plan of Treatment Not on file documented as of this encounter Visit Diagnoses Not on filedocumented in this encounter Care Teams Colorer Relationship Specialty Start Date End Date Bianca Silverman FNP [facility] [place] [address] PCP - General NURSE PRACTITIONER 02/22/19 03/13/24 Christian Cardozo MD [address] [facility] [address] [place] [address] PCP - General FAMILY PRACTICE 03/14/24 documented as of this encounter
--- OUTSIDE RECORDS SUMMARY | 2024-07-15 02:16 | XMS_ITS | Clinical Summary ---
Author Organization [facility] [address] Address [address] [place] [address] Care Team Providers Care Shrimp Picker Name Role Phone Christian Cardozo MD Primary Care Provider Allergies No known active allergies Medications metFORMIN [...] (PROVENTIL HFA,VENTOLIN HFA,PROAIR HFA) 90 mcg/actuation inhaler 021 Active furosemide (LASIX) 20 mg tablet TAKE 1 TABLET BY MOUTH ONCE DAILY IN THE MORNING 021 Active amLODIPine (NORVASC) 10 mg tablet Take [...] by mouth 3 (three) times a day 024 Active metoprolol tartrate (LOPRESSOR) 25 mg immediate [...] 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 05/07/2018 Overview (05/08/2018): Added automatically from request for surgery [id number] S/P CABG (coronary artery bypass graft) Type 2 diabetes mellitus with other specified co mplication Encounters Date Type Department Care Team Description 06/17/2024 Anticoagulation Visit [facility] Medical [facility] Cardiology [address] [place] [address] Elda Mullins RN 06/13/2024 Anticoagulation Visit [facility] Cardiology [address] [place] [address] Didi Wills RN 05/06/2024 Anticoagulation Visit [facility] Cardiology [address] [place] [address] Didi Wills RN 05/03/2024 Orders Only [facility] Health Information Management [address] [place] [address] Twin Brar MD 04/25/2024 Anticoagulation Visit [facility] Cardiology [address] [facility] [address] [place] [address] Didi Wills RN 04/25/2024 Telephone [facility] Cardiology [address] [place] [address] Twin Brar MD INR results from Last 3 Months Surgical History Surgery Date Site/Laterality Comments DILATION AND CURETTAGE OF UTERUS CATARACT EXTRACTION, BILATERAL SHOULDER SURGERY Medical History Medical History Date Comments Arthritis Diabetes mellitus (HCC) Hypertension Hyperlipidemia Family History Medical History Relation Name Comments Cancer Father Cancer Mother Relation Name Status Comments Father Mother Social History Tobacco Use Types Packs/Day Years Used Date Smoking Tobacco: Never Smokeless Tobacco: Never Tobacco Cessation:Counseling Given: Not Answered Alcohol Use Standard Drinks/Week Comments No 0 (1 standard drink = 0.6 oz pur e alcohol) Comments Unknown Sex and Gender Information Value Date Recorded Sex Assigned at Not on file Legal Sex Female 1:11 PM FOOTWEAR STITCHER Gender Identity Not on file Sexual Orientation Not on file Obstetrics History Last Filed Vital Signs Vital Sign Reading [...] 01/16/2024 2:26 PM CDT Plan of Treatment Health Maintenance Due Date Last Done Comments Albumin Creatinine Ratio, Urine 1940 Depression Screening 1940 Fall Risk Assessment 1940 Osteoporosis Screening-Bone Density Scan 1940 Dilated Eye Exam 1940 Foot Exam 1940 DTaP/Tdap/Td Vaccine (1 - Tdap) 1952 Hepatitis B Screening 12/13/1959 Zoster Vaccine (1 of 2) 12/13/1991 Well Visit 65+ 2006 Hemoglobin A1C 11/04/2018 05/07/2018 eGFR 05/16/2019 05/16/2018, 04/27, 05/14/2018, Additional history exists Influenza Vaccine (Season Ended) 2024 01/01/2019, 12/14/2017, 12/28/2016, Additional history exists Lipid Panel 01/07/2025 01/08/2024, 04/27, 05/07/2018 Pneumococcal vaccine 65+ Completed 12/14/2017, 11/27 Procedures Procedure Name Priority Date/Time Associated Diagnosis Comments PROTIME-INR Routine 06/11/2024 SCAN - LABS 05/03/2024 PROTIME-INR Routine 05/03/2024 PROTIME-INR Routine 04/22/2024 LIPID PANEL Routine 01/08/2024 8:58 AM CDT EGFR STAT 05/16/2018 9:14 AM FOOTWEAR STITCHER HEMOGLOBIN A1C Routine 05/07/2018 7:28 PM FOOTWEAR STITCHER from Last 3 Months or Most Recently Relevant to Health Maintenance Results * (ABNORMAL) Protime-INR (06/11/2024) INR 2.50(A) 0.90 - 1.10 EXTERNAL LAB Blood us Historical Provider LAB BLOOD ORDERABLES Shelley l Result EXTERNAL LAB * SCAN - LABS (05/03/2024) Twin Brar MD Final Re sult * (ABNORMAL) Protime-INR (05/03/2024) Pathologist [facility] INR 2.10(A) 0.90 - 1.10 EXTERNAL LAB Blood Result [facility] Provider MD LAB BLOOD ORDERABLES Shelley l Result EXTERNAL LAB * (ABNORMAL) Protime-INR (04/22/2024) [facility] INR 1.20(A) 0.90 - 1.10 EXTERNAL LAB Blood Result [facility] Provider MD LAB BLOOD ORDERABLES Shelley l Result Performing Organization Address [facility]/ZIP Co de Phone Number EXTERNAL LAB * Lipid panel (01/08/2024 8:58 AM CDT) [facility] SCRIBED Cholesterol, Total 150 <200 EXTERNAL LAB SCRIBED HDL 39 >40 EXTERNAL LAB SCRIBED LDL 63 <100 EXTERNAL LAB SCRIBED Triglycerides 242 <150 EXTERNAL LAB Blood Result [facility] Provider MD LAB BLOOD ORDERABLES Edit ed Result - Final Performing Organization Address [facility]/ZIP Co de Phone Number EXTERNAL LAB * eGFR (05/16/2018 9:14 AM FOOTWEAR STITCHER) [facility] eGFR 49 mL/min/1.7 3 m2 JACOB SILVER Comment: Interpretive Data Reference Interval Normal >/= 90 mL/min/1.73m2 Mildly decreased* 60 - 89 mL/min/1.73m2 Mildly to moderately decreased 45 - 59 mL/min/1.73m2 Moderately to severely decreased 30 - 44 mL/min/1.73m2 Severely decreased 15 - 29 mL/min/1.73m2 Kidney Failure < 15 mL/min/1.73m2 *Relative to young adult level If -Liberian multiply value by 1.16. Estimated glomerular filtration [...] 2015. Blood specimen (specimen) 05/16/2018 9:14 AM FOOTWEAR STITCHER 05/16/2018 9:16 AM FOOTWEAR STITCHER Narrative MARIEJANA - 05/16/2018 9:47 AM FOOTWEAR STITCHER us Pari Candelario NP LAB BLOOD ORDERABLES Shelley l Result Performing Organization Address [facility] Co de Phone Number MARIEJANA [address] [facility] [place] [address] * (ABNORMAL) Hemoglobin A1c (05/07/2018 7:28 PM FOOTWEAR STITCHER) Hgb A1C 9.0(H) 4.0 - 5.6 % [facility] Estimated Average Glucose 212 mg/dL [facility] Comment: The ADA recommends reporting an estimated Average Glucose (eAG) with all Hemoglobin A1c results using the equation derived from a study of 507 normal and diabetic adults. Minority populations were underrepresented and children were not included. (Diabetes Care 31:7599-7843, 2008). The eAG is not equivalent to a fasting glucose. Blood specimen (specimen) 05/07/2018 7:28 PM FOOTWEAR STITCHER 05/07/2018 8:02 PM FOOTWEAR STITCHER Narrative MARIEJANA - 05/07/2018 8:18 PM FOOTWEAR STITCHER us Luke Magana MD LAB BLOOD ORDERABLES Final R esult Performing Organization Address City/[facility] Co de Phone Number JACOB [address] [facility] [employer] [place], [place] [id number] from Last 3 Months or Most Recently Relevant to Health Maintenance Insurance MEDICARE [facility] MEDICARE [facility] [employer] CHOICE MEDICARE PPO Advance Directives For more information, please contact: [phone] * Full Code (Latest Code Status on File) Date Activated Date Inactivated Comments 05/18/2018 7:34 PM * Full Code Date Activated Date Inactivated Comments 05/08/2018 3:11 PM 05/16/2018 5:35 PM Care Teams Shrimp Picker Relationship Specialty Start Date End Date Christian Cardozo MD [address] [facility] [address] [place] [address] PCP - General Family Medicine 06/14/18
--- OUTSIDE RECORDS SUMMARY | 2024-07-15 02:16 | XMS_ITS | Encounter Summary ---
Author Organization [facility] Address [facility] [place] [address] Care Team Providers Care Wigs Salesperson Name Role Phone Bianca Silverman Primary Care Provider [phone] Christian Cardozo MD Primary Care Provider [phone] Encounter Details Date Type Department Care Team (Late st Contact Info) Description 09/01/2018 Abstract [facility] CONVERSION [address] [place] [address] , Generic Conversion, Social History Tobacco Use Types Packs/Day Years Used Date Smoking Tobacco: Never Assessed Comments Unknown Sex and Gender Information Value Date Recorded Sex Assigned at Female 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
--- OUTSIDE RECORDS SUMMARY | 2024-07-15 02:16 | XMS_ITS | Encounter Summary ---
Author Organization [facility] Address [facility] [place] [address] Care Team Providers Care Beadworker Name Role Phone Bianca Silverman Primary Care Provider [phone] Christian Cardozo MD Primary Care Provider [phone] Encounter Details Date Type Department Care Team (Latest Contact Info) Description 01/30/2018 Abstract [facility] , Tanner Souza MD Social History Tobacco Use Types Packs/Day Years Used Date Smoking Tobacco: Never Assessed Comments Unknown Sex and Gender Information Value Date Recorded Sex Assigned at Female 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
[2024-07-15 02:19] LABS: Basophils Absolute Auto 0.1 K/mm3 (0.0-0.1); Basophils Percent Auto 0.4 % (0.2-1.2); Eosinophils Absolute Auto 0.1 K/mm3 (0-0.3); Eosinophils Percent Auto 0.4 % (0-4.4); Hematocrit 35.3 % (37.0-47.0); Hemoglobin 11.2 g/dL (12.0-15.0); Immature Granulocyte Absolute 0.04 K/mm3 (0.00-0.031); Immature Granulocyte Percent A 0.3 % (0-0.5); Lymphocytes Percent Auto 7.8 % (18.3-44.2); Mean Corpuscular HGB Conc 31.7 g/dl (32-36); Mean Corpuscular Hemoglobin 30.4 pg (26-34); Mean Corpuscular Volume 95.7 fl (80-100); Mean Platelet Volume 9.6 fl (7.4-10.4); Monocytes Absolute Auto 0.8 K/mm3 (0.1-0.6); Monocytes Percent Auto 6.5 % (2.6-8.5); Neutrophils Absolute Auto 10.8 K/mm3 (1.3-6.7); Neutrophils Percent Auto 84.6 % (45.5-73.1); Platelet Count Result 217 k/mm3 (150-375); Red Blood Count 3.69 M/mm3 (4.2-5.4); Red Cell Distribution Width 13.2 % (11.5-14.5); White Blood Count 12.8 K/mm3 (4.5-10.0)
[2024-07-15 02:32] LABS: Alanine Aminotransferase 21 U/L (6-35); Albumin Level 4.2 g/dL (3.5-5.1); Alkaline Phosphatase 99 U/L (38-126); Anion Gap 15 mmol/L (4-12); Aspartate Amino Transferase 21 U/L (14-36); Bilirubin,Total 0.6 mg/dL (0.2-1.3); Blood Urea Nitrogen 28 mg/dL (7-17); Calcium 7.8 mg/dL (8.4-10.2); Carbon Dioxide 21 mmol/L (22-30); Chloride 104 mmol/L (98-107); Estimated CRCL calculation 33 ml/min; Estimated Glomerular Filt Rate 41; Glucose 235 mg/dL (65-110); Lipase 161 U/L (23-300); Magnesium 0.9 mg/dL (1.6-2.3); Potassium 4.5 mmol/L (3.4-5.0); Sodium 140 mmol/L (137-145)
[2024-07-15] MEDS: MORPHINE SULFATE (*CRX) 4 MG/ML INJ IV PUSH (03:07)
[2024-07-15] MEDS: ONDANSETRON INJ 4 MG/2 ML VIAL IV PUSH ×2 (03:07→12:18)
[2024-07-15 04:12] LABS: Add Urine Microscopic? YES; Appearance Urine Clear (Clear); Bacteria Urine None Seen /hpf; Bilirubin Urine Negative (Negative); Blood Urine Negative (Negative); Color Urine Yellow (Yellow); Glucose Urine UA 1+ mg/dL (Negative); Ketones Urine Trace mg/dL (Negative); Leukocyte Esterase Ur Negative LEU/UL (Negative); Nitrate Urine Negative (Negative); Non Pathogenic Casts 0-2; Protein Urine 3+ mg/dL (Negative); RBC Urine 0-2 /hpf (0-2); Specific Grav Ur > 1.045 (1.001-1.035); Squamous Epithelial Cell Urine None Seen /hpf (Few); Urobilinogen Urine 0.2 mg/dL (<2.0); WBC Urine 0-5 /hpf (0-3); pH Urine 5.5 (5.0-9.0)
[2024-07-15] MEDS: SODIUM CHLORIDE 0.9% IV 1,000 ML 999 ML IV CONT (04:32)
[2024-07-15] MEDS: MAGNESIUM SULF 2 GM/WATER 50ML 2 GM/50 ML BAG IVPB (04:32)
[2024-07-15] MEDS: MAGNESIUM SULF 1 GM/D5W 100 ML 1 GM/100 ML BAG IVPB (06:16)
--- NOTE | 2024-07-15 08:03 | ECG_ITS ---
Test Date: 2024-07-15 08:09:21 Measurements Intervals [place] Rate: 100 P: 46 MD: 181 QRS: -29 QRSD: 90 T: 80 QT: 356 QTc: 460 Interpretive Statements SINUS TACHYCARDIA MINIMAL Q WAVES- HIGH LATERAL LEADS BORDERLINE ST-T WAVE ABNORMALITY- HIGH LATERAL LEADS BASELINE ARTIFACT- I, III BORDERLINE ECG Compared to ECG 07/15/2024 02:04:28 JIMÉNEZ RATE HAS INCREASED Electronically Signed On 07-15-2024 08:32:40 CDT by Erick Bruno D.O.
--- NOTE | 2024-07-15 08:13 | PC.NURSE ---
Adrianne GaliciaMluur-[phone]-Friend
[2024-07-15 08:41] LABS: NT Pro B Type Natriuretic Pept 3050 pg/mL (19.9-100); Troponin I 0.107 ng/mL (0.000-0.034)
[2024-07-15] MEDS: FUROSEMIDE INJ 40 MG/4 ML VIAL IV PUSH (09:31)
[2024-07-15 10:11] LABS: INR 2.4; Prothrombin Time 26.4 Seconds (11.1-14.7)
[2024-07-15 10:12] LABS: Partial Thromboplastin Time 35.6 Seconds (22.3-36.8)
--- NOTE | 2024-07-15 11:03 | PC.NURSE ---
Patient linen changed and purewick placed on patient. patient cleaned up and no further requests or needs at this time
--- NOTE | 2024-07-15 11:32 | P.CONCA_ITS ---
Assessment and Plan Assessment and plan (1) Troponin level elevated: Code(s): R79.89 - Other specified abnormal findings of blood chemistry Status: Acute (2) Hx of CABG: Code(s): Z95.1 - Presence of aortocoronary bypass graft Status: Acute (3) CAD (coronary artery disease): Code(s): I25.10 - Atherosclerotic heart disease of [place] coronary artery without angina pectoris Status: Acute (4) Hyperlipidemia LDL goal <55: Code(s): E78.5 - Hyperlipidemia, unspecified Status: Acute (5) Paroxysmal atrial fibrillation: Code(s): I48.0 - Paroxysmal atrial fibrillation Status: Acute Plan 83-year-old woman with CAD status post CABG (CHRISTIAN to LAD, SVG sequential to OM1 and 2, and SVG to diagonal), paroxysmal atrial fibrillation, mild aortic stenosis, and history of DVT/PE presents with nausea, vomiting, diarrhea, and upper abdominal pain Troponin elevation -continue to trend troponin to peak and repeat EKG -obtain a transthoracic echocardiogram CAD status post CABG -continue aspirin 81 mg p.o. daily Paroxysmal atrial fibrillation -can hold warfarin until it is determined that no procedures anticipated during this hospital admission -and start heparin drip if INR less than 2 Mild aortic stenosis -obtain a transthoracic echocardiogram Hyperlipidemia -continue atorvastatin 40 mg every evening History of Present Illness History of Present Illness Consult date/time: 07/15/24 11:32 Requesting physician: Lexie Dobbs MD Consult reason: Other Reason For Visit: epigastric abdominal pain, elevated troponin, CHF Narrative: 83-year-old woman with CAD status post CABG (CHRISTIAN to LAD, SVG sequential to OM1 and 2, and SVG to diagonal), paroxysmal atrial fibrillation, mild aortic stenosis, and history of DVT/PE presents with nausea, vomiting, diarrhea, and upper abdominal pain. Her last meal was yesterday afternoon in approximately 6 hours afterwards, she started to have nausea quickly followed by severe vomiting as well as diarrhea with upper abdominal pain both in the epigastric, upper right, as well as upper left quadrant pain. She feels better this morning after antinausea medication. Her vomiting has slowed down as well as her diarrhea. Her upper abdominal pain is table tender sludge however is much alleviated compared to yesterday. Previous to this she was able to ambulate without any anginal equivalent symptoms. 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 H/O heart bypass surgery H/O sinus surgery H/O shoulder surgery H/O cataract extraction History of bunionectomy Family History Family History Other Diabetes mellitus Family history of arthritis Family history of malignant neoplasm Social History Social History Social History: Smoking status: Former smoker Second hand tobacco smoke exposure: No Alcohol intake: never Substance use: never Substance use type: does not use Do You Feel Safe in your Home?: Yes Lack of Transportation: No Lack of Food: Never True Current Housing: I Have Housing Concerned About Future Housing: No Difficulty Paying Gas/Electric Bills: No Difficulty Paying for Meds: No Currently Unemployed: No Education: High School Diploma/GED Difficulty w/ Childcare or Family Care: No Living arrangements: alone Occupation/Education: occupation Additional occupation/education comments: [employer]- [employer]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 Gender identity (if verbalized by the patient): Female Sexual Orientation (if Verbalized by the Patient): Straight or Heterosexual Meds Home Medications and Allergies Home Medications ?Medication ?Instructions ?Recorded ?Confirmed ?Type blood sugar diagnostic (Accu-Chek #100 ea 05/20/19 05/28/24 Rx Ingrid Plus test strips) aspirin 81 mg tablet,delayed 81 mg PO DAILY 06/05/19 07/15/24 History release loratadine 10 mg tablet 10 mg PO DAILY 09/11/19 07/15/24 History warfarin 2 mg tablet 6 mg PO DAILY 09/11/19 07/15/24 History ferrous sulfate 325 mg (65 mg 325 mg PO DAILY #90 tabs 10/24/22 07/15/24 Rx iron) tablet (Iron (ferrous sulfate)) citalopram 10 mg tablet 10 mg PO DAILY #90 tabs 03/06/23 07/15/24 Rx metoprolol tartrate 25 mg tablet 25 mg PO BID 07/25/23 07/15/24 History latanoprost 0.005 % eye drops 1 drp EACH EYE HS 08/09/23 07/15/24 History metformin 500 mg tablet 500 mg PO BID 08/09/23 07/15/24 History warfarin 4 mg tablet 4 mg PO WEEKLY 08/09/23 05/28/24 History spironolactone 25 mg tablet 25 mg PO DAILY #90 tabs 10/02/23 05/28/24 Rx albuterol sulfate 90 mcg/actuation 2 puff inhalation QID PRN 04/15/24 05/28/24 Rx aerosol inhaler shortness of breath or wheezing #6.7 grams linagliptin 5 mg tablet (Tradjenta) 5 mg PO QAM #90 tabs 05/28/24 05/28/24 Rx ergocalciferol (vitamin D2) 1,250 1,250 mcg PO WEEKLY #14 caps 06/14/24 Rx mcg (50,000 unit) capsule (Vitamin D2) atorvastatin 80 mg tablet 80 mg PO DAILY #90 tabs 06/24/24 07/15/24 Rx amlodipine 10 mg tablet 10 mg PO DAILY #90 tabs 07/01/24 07/15/24 Rx hydralazine 50 mg tablet 25 mg PO TID 07/15/24 07/15/24 History ondansetron 4 mg disintegrating 4 mg PO Q8H PRN nausea and 07/15/24 Rx tablet vomiting #10 tabs Allergies Allergy/AdvReac Type Severity Reaction Status Date / Time No Known Allergies Allergy Verified 05/28/24 12:50 Vital Signs Vital Signs - 24 hr 07/15/24 02:00 07/15/24 03:08 07/15/24 03:09 Temperature 36.6 C Pulse Rate 61 91 Respiratory Rate 22 H 24 H Blood Pressure 158/74 H 143/73 H Pulse Oximetry 93 93 83 L Oxygen Delivery Room Air Room Air Oxygen Flow Rate 07/15/24 03:09 07/15/24 04:50 07/15/24 05:41 Temperature Pulse Rate 102 H 103 H Respiratory Rate 23 H 20 Blood Pressure 158/86 H 170/80 H Pulse Oximetry 93 95 94 Oxygen Delivery Nasal Cannula Oxygen Flow Rate 3 07/15/24 06:25 07/15/24 06:59 07/15/24 09:14 Temperature Pulse Rate 100 103 H Respiratory Rate 22 H 20 Blood Pressure 168/88 H 187/80 H Pulse Oximetry 93 93 96 Oxygen Delivery Nasal Cannula Oxygen Flow Rate 2 07/15/24 09:31 07/15/24 10:45 Temperature 37.4 C 36.8 C Pulse Rate 105 H Respiratory Rate 22 H Blood Pressure 174/83 H Pulse Oximetry 97 Oxygen Delivery Oxygen Flow Rate Exam 2 Const: General: comfortable HENMT: Mouth: Yes moist mucous membranes Eyes: EOM: EOMs intact bilaterally Neck: Neck: no JVD Resp: Effort & Inspection: normal respiratory effort Auscultation: clear to auscultation bilaterally Cardio: Rate: tachycardic Rhythm: regular rhythm GI: Inspection: distended GI Palp: Yes Tenderness to palpation present (GI) Extrem: General: no pedal edema Results Labs and Meds 07/15/24 02:11 07/15/24 02:11 Lab results: Cardiac Enzymes 07/15/24 07/15/24 Range/Units 02:11 08:11 AST 21 (14-36) U/L Troponin I 0.107 H* (0.000-0.034) ng/mL Coagulation 07/15/24 Range/Units 09:49 PT 26.4 H (11.1-14.7) Seconds APTT 35.6 (22.3-36.8) Seconds CBC 07/15/24 Range/Units 02:11 WBC 12.8 H (4.5-10.0) K/mm3 RBC 3.69 L (4.2-5.4) M/mm3 Hgb 11.2 L (12.0-15.0) g/dL Hct 35.3 L (37.0-47.0) % Plt Count 217 (150-375) k/mm3 Lymph # (Auto) 1.00 (0.9-3.2) K/mm3 [place] # (Auto) 0.8 H (0.1-0.6) K/mm3 Eos # (Auto) 0.1 (0-0.3) K/mm3 Baso # (Auto) 0.1 (0.0-0.1) K/mm3 Comprehensive Metabolic Panel 07/15/24 Range/Units 02:11 Sodium 140 (137-145) mmol/L Potassium 4.5 (3.4-5.0) mmol/L Chloride 104 (98-107) mmol/L Carbon Dioxide 21 L (22-30) mmol/L BUN 28 H D (7-17) mg/dL Creatinine 1.24 H (0.7-1.0) mg/dL Glucose 235 H (65-110) mg/dL Calcium 7.8 L (8.4-10.2) mg/dL AST 21 (14-36) U/L ALT 21 (6-35) U/L Alkaline Phosphatase 99 (38-126) U/L Total Protein 7.0 (6.3-8.2) g/dL Albumin 4.2 (3.5-5.1) g/dL Intake and Output 07/14/24 07/15/24 07/15/24 23:59 07:59 15:59 Intake Total 1150 Output Total 100 Balance 1050 Intake: IV 1150 Sodium Chloride 0.9% IV 1,000 1000 ml @ 999 mls/hr IV CONT .Q1H1M STA Rx#:[id number] Magnesium Sulf 1 gm/D5w 100 ml 100 1 gm In 100 ml @ 100 mls/hr IVPB ONCE ONE Rx#:[id number] Magnesium Sulf 2 gm/Water 50Ml 50 2 gm In 50 ml @ 25 mls/hr IVPB ONCE ONE Rx#:[id number] Output: Urine 100 Patient Weight 07/15/24 23:59 Weight 81.9 kg
[2024-07-15 11:41] LABS: Glucose Point of Care 254 mg/dl (65-105)
--- NOTE | 2024-07-15 11:41 | P.HP_ITS ---
H&P: HPI History of Present Illness Date/Time: 07/15/24 11:41 Chief Complaint: Abdominal pain Narrative: This is a 83-year-old female who presents to the ED with nausea vomiting and epigastric pain. She reported pain started about 10:00 p.m. last night. Continue to worsen and hence called EMS. He also reports some nausea vomiting and diarrhea associated with this pain. When EMS arrived patient was saturating 80% on room air and hence was placed on 2 L via nasal cannula. Upon arrival to the ED patient was saturating 93% on room air. Received IV Zofran 1 time dose per EMS. No chest pain reported. In the ED her vitals were stable. EKG showed sinus bradycardia at a rate of 54 beats per minute with no acute ST-T changes. Laboratory evaluation revealed leukocytosis of 12.8 BUN of 28 magnesium 0.9 oth erwise unremarkable. Patient received IV fluid bolus and magnesium supplementation CT abdomen pelvis with contrast revealed distended gallbladder with questionable minimal pericholecystic inflammatory change consider acute cholecystitis. Right upper quadrant ultrasound was obtained which showed nonspecific trace pericholecystic fluid but with normal appearing gallbladder with no cholelithiasis or sonographic Smith sign to suggest acute cholecystitis. Chest x-ray revealed no acute cardiopulmonary disease Troponin was mildly elevated at 0.107 followed by 0.331. BNP 3050. She is admitted in the setting for further treatment Review of Systems Review of Systems: - CONSTITUTIONAL: Denies weight loss, fe clark and chills. - HEENT: Denies changes in vision and he aring - RESPIRATORY: Denies SOB and reports ch ronic cough. - CV: Denies palpitations and CP. - GI: reports abdominal pain, nausea, vo miting and diarrhea. - : Denies dysuria and urinary frequen cy. - MSK: Denies myalgia and joint pain. - SKIN: Denies rash and pruritus. - NEUROLOGICAL: Denies headache and sync ope. - PSYCHIATRIC: Denies recent changes in mood. Denies anxiety and depression. 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 H/O heart bypass surgery H/O sinus surgery H/O shoulder surgery H/O cataract extraction History of bunionectomy Family History Family History Other Diabetes mellitus Family history of arthritis Family history of malignant neoplasm Social History Social History Social History: Smoking status: Never smoker Second hand tobacco smoke exposure: No Alcohol intake: never Substance use: never Substance use type: does not use Do You Feel Safe in your Home?: Yes Lack of Transportation: No Lack of Food: Never True Current Housing: I Have Housing Concerned About Future Housing: No Difficulty Paying Gas/Electric Bills: No Difficulty Paying for Meds: No Currently Unemployed: No Education: High School Diploma/GED Difficulty w/ Childcare or Family Care: No Living arrangements: alone Occupation/Education: occupation Additional occupation/education comments: [employer]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 Gender identity (if verbalized by the patient): Female Sexual Orientation (if Verbalized by the Patient): Straight or Heterosexual Spiritual care concerns: No Meds Home Medications and Allergies Home Medications ?Medication ?Instructions ?Recorded ?Confirmed ?Type blood sugar diagnostic (Accu-Chek #100 ea 05/20/19 07/15/24 Rx Ingrid Plus test strips) aspirin 81 mg tablet,delayed 81 mg PO DAILY 06/05/19 07/15/24 History release loratadine 10 mg tablet 10 mg PO DAILY 09/11/19 07/15/24 History warfarin 2 mg tablet 6 mg PO DAILY 09/11/19 07/15/24 History ferrous sulfate 325 mg (65 mg 325 mg PO DAILY #90 tabs 10/24/22 07/15/24 Rx iron) tablet (Iron (ferrous sulfate)) citalopram 10 mg tablet 10 mg PO DAILY #90 tabs 03/06/23 07/15/24 Rx metoprolol tartrate 25 mg tablet 25 mg PO BID 07/25/23 07/15/24 History latanoprost 0.005 % eye drops 1 drp EACH EYE HS 08/09/23 07/15/24 History metformin 500 mg tablet 500 mg PO BID 08/09/23 07/15/24 History spironolactone 25 mg tablet 25 mg PO DAILY #90 tabs 10/02/23 07/15/24 Rx albuterol sulfate 90 mcg/actuation 2 puff inhalation QID PRN 04/15/24 07/15/24 Rx aerosol inhaler shortness of breath or wheezing #6.7 grams linagliptin 5 mg tablet (Tradjenta) 5 mg PO QAM #90 tabs 05/28/24 07/15/24 Rx ergocalciferol (vitamin D2) 1,250 1,250 mcg PO WEEKLY #14 caps 06/14/24 07/15/24 Rx mcg (50,000 unit) capsule (Vitamin D2) amlodipine 10 mg tablet 10 mg PO DAILY #90 tabs 07/01/24 07/15/24 Rx atorvastatin 80 mg tablet 80 mg PO QPM 07/15/24 07/15/24 History cetirizine 10 mg tablet 10 mg PO DAILY 07/15/24 07/15/24 History hydralazine 50 mg tablet 25 mg PO TID 07/15/24 07/15/24 History lansoprazole 15 mg capsule,delayed 15 mg PO DAILY 07/15/24 07/15/24 History release ondansetron 4 mg disintegrating 4 mg PO Q8H PRN nausea and 07/15/24 Rx tablet vomiting #10 tabs Allergies Allergy/AdvReac Type Severity Reaction Status Date / Time No Known Allergies Allergy Verified 07/15/24 11:47 Vital Signs Vital Signs - 24 hr 07/15/24 02:00 07/15/24 03:08 07/15/24 03:09 Temperature 97.8 F Pulse Rate 61 91 Respiratory Rate 22 H 24 H Blood Pressure 158/74 H 143/73 H Pulse Oximetry 93 93 83 L Oxygen Delivery Room Air Room Air Oxygen Flow Rate 07/15/24 03:09 07/15/24 04:50 07/15/24 05:41 Temperature Pulse Rate 102 H 103 H Respiratory Rate 23 H 20 Blood Pressure 158/86 H 170/80 H Pulse Oximetry 93 95 94 Oxygen Delivery Nasal Cannula Oxygen Flow Rate 3 07/15/24 06:25 07/15/24 06:59 07/15/24 09:14 Temperature Pulse Rate 100 103 H Respiratory Rate 22 H 20 Blood Pressure 168/88 H 187/80 H Pulse Oximetry 93 93 96 Oxygen Delivery Nasal Cannula Oxygen Flow Rate 2 07/15/24 09:31 07/15/24 10:45 Temperature 99.4 F 98.2 F Pulse Rate 105 H Respiratory Rate 22 H Blood Pressure 174/83 H Pulse Oximetry 97 Oxygen Delivery Oxygen Flow Rate Exam Narrative: General: Alert, awake, afebrile, in mild distress secondary to nausea, retching pleasant elderly female. HEENT: PERRL, no rhinorrhea, no post nasal drip, oropharynx clear. Neck: Trachea midline, no JVD, no lymphadenopathy. Cardiovascular: Regular rate and rhythm, no murmurs, rubs or gallops, no peripheral edema. Respiratory: Clear to auscultation bilaterally, no tachypnea, no wheezing, no rhonchi, no rubs, no respiratory distress. Abdomen: Soft, nontender, nondistended, no rebound, no guarding, no peritoneal signs. Musculoskeletal: No joint swelling or deformity, normal muscle tone. Skin: No rashes or petechia, no signs of infection. Psychiatric: Alert and oriented, normal behavior and judgment for situation. Neurological: Alert and oriented to person, place, and time. Follows all commands. No focal deficits, speech is clear and fluent. H&P: Results Labs Labs: Short CBC 07/15/24 Range/Units 02:11 WBC 12.8 H (4.5-10.0) K/mm3 Hgb 11.2 L (12.0-15.0) g/dL Hct 35.3 L (37.0-47.0) % Plt Count 217 (150-375) k/mm3 [facility] 07/15/24 02:11 Sodium 140 Potassium 4.5 Chloride 104 Carbon Dioxide 21 L BUN 28 H D Creatinine 1.24 H Glucose 235 H Calcium 7.8 L Cardiac Enzymes 07/15/24 Range/Units 08:11 Troponin I 0.107 H* (0.000-0.034) ng/mL Liver Function 07/15/24 Range/Units 02:11 Total Bilirubin 0.6 (0.2-1.3) mg/dL AST 21 (14-36) U/L ALT 21 (6-35) U/L Alkaline Phosphatase 99 (38-126) U/L Albumin 4.2 (3.5-5.1) g/dL Urine / Range/Units 03:37 Urine Color Yellow (Yellow) Urine Appearance Clear (Clear) Urine pH 5.5 (5.0-9.0) Ur Specific [place] > 1.045 H (1.001-1.035) Urine Protein 3+ H (Negative) mg/dL Urine Glucose (UA) 1+ H (Negative) mg/dL Assessment and Plan Assessment and plan (1) Anxiety: Code(s): F41.9 - Anxiety disorder, unspecified Status: Acute (2) Depression: Code(s): F32.9 - Major depressive disorder, single episode, unspecified Status: Acute (3) HTN (hypertension): Qualifiers: Hypertension type: essential hypertension Qualified Code(s): I10 - Essential (primary) hypertension Code(s): I10 - Essential (primary) hypertension Status: Acute (4) CAD (coronary artery disease): Code(s): I25.10 - Atherosclerotic heart disease of [place] coronary artery without angina pectoris Status: Acute (5) Troponin level elevated: Code(s): R79.89 - Other specified abnormal findings of blood chemistry Status: Acute (6) Hx of CABG: Code(s): Z95.1 - Presence of aortocoronary bypass graft Status: Acute (7) Paroxysmal atrial fibrillation: Code(s): I48.0 - Paroxysmal atrial fibrillation Status: Acute (8) Pulmonary embolism: Code(s): I26.99 - Other pulmonary embolism without acute cor pulmonale Status: Acute (9) Diabetes 1.5, managed as type 2: Code(s): E13.9 - Other specified diabetes mellitus without complications Status: Acute (10) Abdominal pain, epigastric: Code(s): R10.13 - Epigastric pain Status: Acute (11) GERD (gastroesophageal reflux disease): Code(s): K21.9 - Gastro-esophageal reflux disease without esophagitis Status: Acute (12) CKD stage 3 due to type 2 diabetes mellitus: Code(s): E11.22 - Type 2 diabetes mellitus with diabetic chronic kidney disease; N18.30 - Chronic kidney disease, stage 3 unspecified Status: Acute Plan This is a 83-year-old female who presents to the ED with nausea vomiting and epigastric pain. She reported pain started about 10:00 p.m. last night. Continue to worsen and hence called EMS. He also reports some nausea vomiting and diarrhea associated with this pain. When EMS arrived patient was saturating 80% on room air and hence was placed on 2 L via nasal cannula. Upon arrival to the ED patient was saturating 93% on room air. Received IV Zofran 1 time dose per EMS. No chest pain reported. In the ED her vitals were stable. EKG showed sinus bradycardia at a rate of 54 beats per minute with no acute ST-T changes. Laboratory evaluation revealed leukocytosis of 12.8 BUN of 28 magnesium 0.9 otherwise unremarkable. Patient received IV fluid bolus and magnesium supplementation CT abdomen pelvis with contrast revealed distended gallbladder with questionable minimal pericholecystic inflammatory change consider acute cholecystitis. Right upper quadrant ultrasound was obtained which showed nonspecific trace pericholecystic fluid but with normal appearing gallbladder with no cholelithiasis or sonographic Smith sign to suggest acute cholecystitis. Chest x-ray revealed no acute cardiopulmonary disease Troponin was mildly elevated at 0.107 followed by 0.331. BNP 3050. She is admitted in the setting for further treatment Nausea vomiting abdominal pain questionable acute cholecystitis. General surgery consultation LFTs normal. Possibly get HIDA scan. start iv zosyn. Possible acute coronary syndrome with elevated troponin trend troponin cardiology consult. 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
[2024-07-15 11:42] LABS: Troponin I 0.331 ng/mL (0.000-0.034)
[2024-07-15] MEDS: METOPROLOL TARTRATE 25 MG TABLET PO (12:07)
[2024-07-15] MEDS: amLODIPine BESYLATE 10 MG TABLET PO (12:07)
--- NOTE | 2024-07-15 12:08 | ADMGEN ---
This patient, Gill Kowalski, was admitted to IMU Room 213-01 @ 1135. Patient/family oriented to hospital policies and general routines including ID bracelet, bed and alarms, visiting hours, pain management, procedures, bathroom and other care routines, personal items, smoking policy, room service/diet, and visiting hours. Information on how to activate the Rapid Response Team has been discussed. Patient/Family are encouraged to report perceived risks to care and to ask questions if they do not understand what they are told or what they should do.
[2024-07-15 13:17] LABS: Hemoglobin A1C 7.7 % (<5.7)
[2024-07-15] MEDS: hydrALAZINE HCL 25 MG TABLET PO ×2 (13:56→17:12)
[2024-07-15] MEDS: PERFLUTREN LIPID MICROSPHERES 1.5 ML VIAL DILUTED TO 10 ML TOTAL VOLUME IV PUSH (14:12)
[2024-07-15] MEDS: PIPERACILLN/TAZ 3.375GM/NS50ML 3.375 GM/50 ML BAG IVPB ×2 (14:29→20:13)
--- NOTE | 2024-07-15 14:41 | P.CONGS_ITS ---
Assessment and Plan Assessment and plan (1) Abnormal CT scan, gallbladder: Code(s): R93.2 - Abnormal findings on diagnostic imaging of liver and biliary tract <Coco Horne MICA SPREADER - Last Filed: 07/15/24 15:01> Status: Acute <ABBY CarrizalesP - Last Filed: 07/15/24 15:01> Assessment and Plan: CT showed distended gallbladder with possible pericholecystic fluid. RUQ US showed normal appearing gallbladder with trace pericholecystic fluid, no findings to suggest acute cholecystitis. No gallstones or sludge. Abdominal exam benign, no evidence of acute cholecystitis at this time. Would recommend treating conservatively. She is a poor surgical candidate. Will start her on a clear liquid diet and advance as tolerated to low fat. <Coco Horne MICA SPREADER - Last Filed: 07/15/24 15:01> (2) Troponin level elevated: Code(s): R79.89 - Other specified abnormal findings of blood chemistry <Coco Horne MICA SPREADER - Last Filed: 07/15/24 15:01> Status: Acute <Coco Horne MICA SPREADER - Last Filed: 07/15/24 15:01> Assessment and Plan: Cardiology following. <Coco Horne MICA SPREADER - Last Filed: 07/15/24 15:01> (3) Hx of CABG: Code(s): Z95.1 - Presence of aortocoronary bypass graft <Coco Thayerstephanie MICA SPREADER - Last Filed: 07/15/24 15:01> Status: Acute <Coco Horne MICA SPREADER - Last Filed: 07/15/24 15:01> (4) Paroxysmal atrial fibrillation: Code(s): I48.0 - Paroxysmal atrial fibrillation <Coco Thayerstephanie MICA SPREADER - Last Filed: 07/15/24 15:01> Status: Acute <Coco Thayerstephanie MICA SPREADER - Last Filed: 07/15/24 15:01> (5) Anticoagulant long-term use: Code(s): Z79.01 - [facility] (current) use of anticoagulants <Coco Thayerstephanie MICA SPREADER - Last Filed: 07/15/24 15:01> Status: Acute <Coco Horne MICA SPREADER - Last Filed: 07/15/24 15:01> Assessment and Plan: Warfarin on hold per Cardiology. No plans for any surgical intervention from our standpoint. <Coco Thayerstephanie MICA SPREADER - Last Filed: 07/15/24 15:01> (6) Pulmonary embolism: Code(s): I26.99 - Other pulmonary embolism without acute cor pulmonale <Coco ThayerNISHANT brown - Last Filed: 07/15/24 15:01> Status: Acute <Coco Thayerstephanie MICA SPREADER - Last Filed: 07/15/24 15:01> (7) Diabetes 1.5, managed as type 2: Code(s): E13.9 - Other specified diabetes mellitus without complications < Coco Woodsonleonid MICA SPREADER - Last Filed: 07/15/24 15:01> Status: Acute <Coco Thayerstephanie MICA SPREADER - Last Filed: 07/15/24 15:01> Assessment and Plan: I have discussed the patient's case and plan of care with Dr. Mar. < Coco Belle KandiceNISHANT jaquez - Last Filed: 07/15/24 15:01> History of Present Illness Consult details Consult date: 07/15/24 <NISHANT Carrizales - Last Filed: 07/15/24 15:01> 07/15/24 <Estelle Mar MD - Last Filed: 07/15/24 15:02> Reason for consult: other (Epigastric pain, leukocytosis) <NISHANT Carrizales - Last Filed: 07/15/24 15:01> Requesting physician: Anglea Ventura MD <NISHANT Carrizales - Last Filed: 07/15/24 15:01> Narrative: This is an 83-year-old woman with multiple medical problems and on anticoagulation with warfarin therapy, who we have been asked to see for epigastric pain. She developed epigastric abdominal pain around 10:00 p.m. last night. She had associated nausea and vomiting, as well as diarrhea. She called EMS and was saturating 80% on room air, then was placed on 2 L of oxygen via nasal cannula. In the ED, EKG showed sinus bradycardia with no acute ST-T changes. Labs showed troponin mildly elevated at 0.107 followed by 0.331. White blood cell count [id number], LFTs normal. Magnesium 0.9. CT scan of the abdomen and pelvis showed a distended gallbladder with questionable minimal pericholecystic inflammatory change, consider acute cholecystitis. Right upper quadrant abdominal ultrasound showed nonspecific trace pericholecystic fluid but with a normal-appearing gallbladder with no cholelithiasis or sonographic Smith sign to suggest acute cholecystitis. She was started on IV Zosyn and magnesium was replaced. INR 2.4. Cardiology also consulted and holding her warfarin in case she needs a procedure with recommendations to start a heparin infusion if INR goes over 2.0. <NISHANT Carrizales - Last Filed: 07/15/24 15:01> Review of Systems 2 Review of Systems: All systems reviewed & are unremarkable except as noted in HPI and below <NISHANT Carrizales - Last Filed: 07/15/24 15:01> PMFSH Past Medical History Medical History: Medical History Elbow tendonitis Foot fracture Heart disease Glaucoma Cataracts, bilateral Back pain Pulmonary embolism Distal radius fracture Diabetes 1.5, managed as type 2 Depression Arthritis Myocardial infarction (lateral wall) HTN (hypertension) History of pulmonary embolism Hearing loss Anxiety History of fracture of wrist <NISHANT Carrizales - Last Filed: 07/15/24 15:01> Surgical History Surgical History: Surgical History 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 H/O heart bypass surgery H/O sinus surgery H/O shoulder surgery H/O cataract extraction History of bunionectomy <NISHANT Carrizales - Last Filed: 07/15/24 15:01> Family History Family History: Family History Other Diabetes mellitus Family history of arthritis Family history of malignant neoplasm <NISHANT Carrizales - Last Filed: 07/15/24 15:01> Social History Social History: Social History Social History: Smoking status: Never smoker Second hand tobacco smoke exposure: No Alcohol intake: never Substance use: never Substance use type: does not use Do You Feel Safe in your Home?: Yes Lack of Transportation: No Lack of Food: Never True Current Housing: I Have Housing Concerned About Future Housing: No Difficulty Paying Gas/Electric Bills: No Difficulty Paying for Meds: No Currently Unemployed: No Education: High School Diploma/GED Difficulty w/ Childcare or Family Care: No Living arrangements: alone Occupation/Education: occupation Additional occupation/education comments: [employer]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 Gender identity (if verbalized by the patient): Female Sexual Orientation (if Verbalized by the Patient): Straight or Heterosexual Spiritual care concerns: No <NISHANT Carrizales - Last Filed: 07/15/24 15:01> Meds Home Medications and Allergies Home medications: Home Medications ?Medication ?Instructions ?Recorded ?Confirmed ?Type blood sugar diagnostic (Accu-Chek #100 ea 05/20/19 07/15/24 Rx Ingrid Plus test strips) aspirin 81 mg tablet,delayed 81 mg PO DAILY 06/05/19 07/15/24 History release loratadine 10 mg tablet 10 mg PO DAILY 09/11/19 07/15/24 History warfarin 2 mg tablet 6 mg PO DAILY 09/11/19 07/15/24 History ferrous sulfate 325 mg (65 mg 325 mg PO DAILY #90 tabs 10/24/22 07/15/24 Rx iron) tablet (Iron (ferrous sulfate)) citalopram 10 mg tablet 10 mg PO DAILY #90 tabs 03/06/23 07/15/24 Rx metoprolol tartrate 25 mg tablet 25 mg PO BID 07/25/23 07/15/24 History latanoprost 0.005 % eye drops 1 drp EACH EYE HS 08/09/23 07/15/24 History metformin 500 mg tablet 500 mg PO BID 08/09/23 07/15/24 History spironolactone 25 mg tablet 25 mg PO DAILY #90 tabs 10/02/23 07/15/24 Rx albuterol sulfate 90 mcg/actuation 2 puff inhalation QID PRN 04/15/24 07/15/24 Rx aerosol inhaler shortness of breath or wheezing #6.7 grams linagliptin 5 mg tablet (Tradjenta) 5 mg PO QAM #90 tabs 05/28/24 07/15/24 Rx ergocalciferol (vitamin D2) 1,250 1,250 mcg PO WEEKLY #14 caps 06/14/24 07/15/24 Rx mcg (50,000 unit) capsule (Vitamin D2) amlodipine 10 mg tablet 10 mg PO DAILY #90 tabs 07/01/24 07/15/24 Rx atorvastatin 80 mg tablet 80 mg PO QPM 07/15/24 07/15/24 History cetirizine 10 mg tablet 10 mg PO DAILY 07/15/24 07/15/24 History hydralazine 50 mg tablet 25 mg PO TID 07/15/24 07/15/24 History lansoprazole 15 mg capsule,delayed 15 mg PO DAILY 07/15/24 07/15/24 History release ondansetron 4 mg disintegrating 4 mg PO Q8H PRN nausea and 07/15/24 Rx tablet vomiting #10 tabs <NISHANT Carrizales - Last Filed: 07/15/24 15:01> Allergies/Adverse reactions: Allergies Allergy/AdvReac Type Severity Reaction Status Date / Time No Known Allergies Allergy Verified 07/15/24 11:47 <NISHANT Carrizales - Last Filed: 07/15/24 15:01> Vital Signs Vital Signs - 24 hr 07/15/24 02:00 07/15/24 03:08 07/15/24 03:09 Temperature 97.8 F Pulse Rate 61 91 Respiratory Rate 22 H 24 H Blood Pressure 158/74 H 143/73 H Pulse Oximetry 93 93 83 L Oxygen Delivery Room Air Room Air Oxygen Flow Rate 07/15/24 03:09 07/15/24 04:50 07/15/24 05:41 Temperature Pulse Rate 102 H 103 H Respiratory Rate 23 H 20 Blood Pressure 158/86 H 170/80 H Pulse Oximetry 93 95 94 Oxygen Delivery Nasal Cannula Oxygen Flow Rate 3 07/15/24 06:25 07/15/24 06:59 07/15/24 09:14 Temperature Pulse Rate 100 103 H Respiratory Rate 22 H 20 Blood Pressure 168/88 H 187/80 H Pulse Oximetry 93 93 96 Oxygen Delivery Nasal Cannula Oxygen Flow Rate 2 07/15/24 09:31 07/15/24 10:45 07/15/24 11:55 Temperature 99.4 F 98.2 F 99.0 F Pulse Rate 105 H 110 H Respiratory Rate 22 H 18 Blood Pressure 174/83 H 181/70 H Pulse Oximetry 97 94 Oxygen Delivery Oxygen Flow Rate 07/15/24 11:56 07/15/24 12:07 Temperature Pulse Rate 109 H Respiratory Rate Blood Pressure 179/89 H Pulse Oximetry Oxygen Delivery Oxygen Flow Rate <ABBY CarrizalesP - Last Filed: 07/15/24 15:01> Exam 2 Const: General: comfortable and no acute distress <ABBY CarrizalesP - Last Filed: 07/15/24 15:01> Nutritional Appearance: average body habitus <ABBY CarrizalesP - Last Filed: 07/15/24 15:01> Orientation/consciousness: patient oriented x3 <Coco Horne [facility] - Last Filed: 07/15/24 15:01> HENMT: Head: normocephalic and atraumatic <Coco Horne [facility] - Last Filed: 07/15/24 15:01> Ears: hearing grossly normal bilaterally <Coco Horne [facility] - Last Filed: 07/15/24 15:01> Mouth: Yes moist mucous membranes <Coco Horne [facility] - Last Filed: 07/15/24 15:01> Eyes: General: appearance normal, both eyes and all related structures < Coco Horne [facility] - Last Filed: 07/15/24 15:01> Pupils: Equal, round and reactive pupils present <Coco Horne [facility] - Last Filed: 07/15/24 15:01> Neck: Neck: normal visual inspection and full ROM <ABBY CarrizalesP - Last Filed: 07/15/24 15:01> Resp: Effort & Inspection: no respiratory distress <Coco Horne [facility] - Last Filed: 07/15/24 15:01> Auscultation: clear to auscultation bilaterally <Coco Horne [facility] - Last Filed: 07/15/24 15:01> Cardio: Rate: regular rate <Coco Horne [facility] - Last Filed: 07/15/24 15:01> Rhythm: regular rhythm <Coco Hrone [facility] - Last Filed: 07/15/24 15:01> Peripheral pulses: Peripheral pulses 2+ throughout <Coco Horne [facility] - Last Filed: 07/15/24 15:01> GI: Inspection: non-distended <Coco Horne [facility] - Last Filed: 07/15/24 15:01> GI Palp: Yes Soft to palpation, No Tenderness to palpation present (GI), No Guarding due to palpation present (GI) and No Rebound tenderness present < Coco Horne [facility] - Last Filed: 07/15/24 15:01> Auscultation: normal bowel sounds <Coco Horne [facility] - Last Filed: 07/15/24 15:01> Skin: General skin exam: normal color <Coco Horne [facility] - Last Filed: 07/15/24 15:01> Neuro: General: moves all extremities and no focal motor deficits <Coco Horne [facility] - Last Filed: 07/15/24 15:01> Speech: normal speech <Coco Horne [facility] - Last Filed: 07/15/24 15:01> Extrem: General: normal to inspection and no edema <Coco Horne [facility] - Last Filed: 07/15/24 15:01> Psych: Mental Status: mental status grossly normal <Coco Horne [facility] - Last Filed: 07/15/24 15:01> Attitude: cooperative <Ccoo Horne [facility] - Last Filed: 07/15/24 15:01> Insight: Good insight present (Psych) <Coco Horne [facility] - Last Filed: 07/15/24 15:01> Judgement: Good judgement present (Psych) <ABBY CarrizalesP - Last Filed: 07/15/24 15:01> Results Labs Result diagrams: 07/15/24 02:11 07/15/24 02:11 <ABBY CarrizalesP - Last Filed: 07/15/24 15:01> Labs: Abnormal lab results 07/15/24 07/15/24 07/15/24 Range/Units 02:11 03:37 08:11 WBC 12.8 H (4.5-10.0) K/mm3 RBC 3.69 L (4.2-5.4) M/mm3 Hgb 11.2 L (12.0-15.0) g/dL Hct 35.3 L (37.0-47.0) % MCHC 31.7 L (32-36) g/dl Neut % (Auto) 84.6 H (45.5-73.1) % Lymph % (Auto) 7.8 L (18.3-44.2) % Tift # (Auto) 0.8 H (0.1-0.6) K/mm3 Abs Immat Gran (auto) 0.04 H (0.00-0.031) K/mm3 Absolute Neuts (auto) 10.8 H (1.3-6.7) K/mm3 PT (11.1-14.7) Seconds Carbon Dioxide 21 L (22-30) mmol/L Anion Gap 15 H (4-12) mmol/L BUN 28 H D (7-17) mg/dL Creatinine 1.24 H (0.7-1.0) mg/dL Estimated GFR 41 L (59 - ) Glucose 235 H (65-110) mg/dL POC Capillary Glucose (65-105) mg/dl Hemoglobin A1c 7.7 H (<5.7) % Calcium 7.8 L (8.4-10.2) mg/dL Magnesium 0.9 L (1.6-2.3) mg/dL Troponin I 0.107 H* (0.000-0.034) ng/mL NT-Pro-B Natriuret Pep 3050 H (19.9-100) pg/mL Ur Specific [place] > 1.045 H (1.001-1.035) Urine Protein 3+ H (Negative) mg/dL Urine Glucose (UA) 1+ H (Negative) mg/dL Urine Ketones Trace H (Negative) mg/dL 07/15/24 07/15/24 07/15/24 Range/Units 09:49 11:09 11:37 WBC (4.5-10.0) K/mm3 RBC (4.2-5.4) M/mm3 Hgb (12.0-15.0) g/dL Hct (37.0-47.0) % MCHC (32-36) g/dl Neut % (Auto) (45.5-73.1) % Lymph % (Auto) (18.3-44.2) % Tift # (Auto) (0.1-0.6) K/mm3 Abs Immat Gran (auto) (0.00-0.031) K/mm3 Absolute Neuts (auto) (1.3-6.7) K/mm3 PT 26.4 H (11.1-14.7) Seconds Carbon Dioxide (22-30) mmol/L Anion Gap (4-12) mmol/L BUN (7-17) mg/dL Creatinine (0.7-1.0) mg/dL Estimated GFR (59 - ) Glucose (65-110) mg/dL POC Capillary Glucose 254 H (65-105) mg/dl Hemoglobin A1c (<5.7) % Calcium (8.4-10.2) mg/dL Magnesium (1.6-2.3) mg/dL Troponin I 0.331 H* D (0.000-0.034) ng/mL NT-Pro-B Natriuret Pep (19.9-100) pg/mL Ur Specific [place] (1.001-1.035) Urine Protein (Negative) mg/dL Urine Glucose (UA) (Negative) mg/dL Urine Ketones (Negative) mg/dL Diabetes panel 07/15/24 Range/Units 02:11 Sodium 140 (137-145) mmol/L Potassium 4.5 (3.4-5.0) mmol/L Chloride 104 (98-107) mmol/L Carbon Dioxide 21 L (22-30) mmol/L BUN 28 H D (7-17) mg/dL Creatinine 1.24 H (0.7-1.0) mg/dL Glucose 235 H (65-110) mg/dL Hemoglobin A1c 7.7 H (<5.7) % Calcium 7.8 L (8.4-10.2) mg/dL AST 21 (14-36) U/L ALT 21 (6-35) U/L Alkaline Phosphatase 99 (38-126) U/L Total Protein 7.0 (6.3-8.2) g/dL Albumin 4.2 (3.5-5.1) g/dL Calcium panel 07/15/24 Range/Units 02:11 Calcium 7.8 L (8.4-10.2) mg/dL Albumin 4.2 (3.5-5.1) g/dL Pituitary panel 07/15/24 Range/Units 02:11 Sodium 140 (137-145) mmol/L Potassium 4.5 (3.4-5.0) mmol/L Chloride 104 (98-107) mmol/L Carbon Dioxide 21 L (22-30) mmol/L BUN 28 H D (7-17) mg/dL Creatinine 1.24 H (0.7-1.0) mg/dL Glucose 235 H (65-110) mg/dL Calcium 7.8 L (8.4-10.2) mg/dL Adrenal panel 07/15/24 Range/Units 02:11 Sodium 140 (137-145) mmol/L Potassium 4.5 (3.4-5.0) mmol/L Chloride 104 (98-107) mmol/L Carbon Dioxide 21 L (22-30) mmol/L BUN 28 H D (7-17) mg/dL Creatinine 1.24 H (0.7-1.0) mg/dL Glucose 235 H (65-110) mg/dL Calcium 7.8 L (8.4-10.2) mg/dL Total Bilirubin 0.6 (0.2-1.3) mg/dL AST 21 (14-36) U/L ALT 21 (6-35) U/L Alkaline Phosphatase 99 (38-126) U/L Total Protein 7.0 (6.3-8.2) g/dL Albumin 4.2 (3.5-5.1) g/dL All other labs normal. <NISHANT Carrizales - Last Filed: 07/15/24 15:01> Imaging Additional studies: ITS Impressions Abdomen/Pelvis CT 07/15/24 06:05 Impression: Distended gallbladder with questionable minimal pericholecystic inflammatory change. Consider acute cholecystitis. Consider right upper quadrant ultrasound for further evaluation. Upper Quadrant Ultrasound 07/15/24 08:13 IMPRESSION: 1. Nonspecific trace pericholecystic fluid but with normal-appearing gallbladder with no cholelithiasis or sonographic Smith sign to suggest acute cholecystitis. 2. Likely age-related mild to moderate diffuse right renal cortical atrophy. Chest X-Ray 07/15/24 09:01 IMPRESSION: No acute pulmonary pathology. <NISHANT Carrizales - Last Filed: 07/15/24 15:01> Attestation Supervising Provider Attestation I, Estelle Mar MD, have provided a substantive portion of the care of this patient. I performed the history, exam and/or medical decision making for this encounter. abd - S, sl dist, mod TTP RUQ/epigastrium, labs and imaging reviewed, conservative tx of cholecystitis, abx, serial exams/labs, may need perc abby if fails conservative mgmt given comorbidities Estelle Mar MD 07/15/24;15:00 <Estelle Mar MD - Last Filed: 07/15/24 15:02>
--- NOTE | 2024-07-15 15:05 | IVDEFINITY ---
Prior to administration of IV Definity the patient was educated on the risks and benefits of the imaging enhancing agent including potential adverse side effects. The patient verbalized understanding. Allergies were verified. No exclusion criteria were identified and at least one of the following inclusion criteria were met: 1) physician request, 2) patient technically difficult to image (per the [place] [employer] guidelines of two or more segments not discernable within the apical view), or 3) questionable left ventricular function. ?
[2024-07-15 15:23] LABS: Troponin I 0.657 ng/mL (0.000-0.034)
[2024-07-15 16:13] LABS: Glucose Point of Care 225 mg/dl (65-105)
[2024-07-15] MEDS: INSULIN ASPART (*BKC) 100 UNITS/ML SUB-Q ×2 (17:12→20:23)
[2024-07-15] MEDS: ATORVASTATIN 40 MG TABLET 80 MG PO (17:12)
[2024-07-15] MEDS: LATANOPROST 0.005% OP SOLN 2.5 ML BTL 1 DROP EACH EYE (20:13)
[2024-07-15 20:21] LABS: Glucose Point of Care 217 mg/dl (65-105)
[2024-07-15] MEDS: METOPROLOL TARTRATE 12.5 MG TABLET PO (20:23)
[2024-07-16] VITALS (31 sets, daily range): BP systolic 128–173; BP diastolic 63–111; PULSE 74–139; RESP 16–24; TEMP 36.8–38; O2SAT 93–98
[2024-07-16 02:02] LABS: Basophils Percent Auto 0.2 % (0.2-1.2); Hematocrit 34.4 % (37.0-47.0); Hemoglobin 11.3 g/dL (12.0-15.0); Immature Granulocyte Absolute 0.11 K/mm3 (0.00-0.031); Immature Granulocyte Percent A 0.7 % (0-0.5); Lymphocytes Absolute Auto 0.71 K/mm3 (0.9-3.2); Lymphocytes Percent Auto 4.7 % (18.3-44.2); Mean Corpuscular HGB Conc 32.8 g/dl (32-36); Mean Corpuscular Hemoglobin 30.9 pg (26-34); Mean Platelet Volume 9.6 fl (7.4-10.4); Monocytes Absolute Auto 1.1 K/mm3 (0.1-0.6); Monocytes Percent Auto 7.5 % (2.6-8.5); Neutrophils Absolute Auto 13.3 K/mm3 (1.3-6.7); Neutrophils Percent Auto 86.9 % (45.5-73.1); Platelet Count Result 201 k/mm3 (150-375); Red Blood Count 3.66 M/mm3 (4.2-5.4); Red Cell Distribution Width 13.2 % (11.5-14.5); White Blood Count 15.2 K/mm3 (4.5-10.0)
[2024-07-16 02:12] LABS: Alanine Aminotransferase 119 U/L (6-35); Albumin Level 3.9 g/dL (3.5-5.1); Alkaline Phosphatase 109 U/L (38-126); Anion Gap 9 mmol/L (4-12); Aspartate Amino Transferase 86 U/L (14-36); Bilirubin,Total 2.6 mg/dL (0.2-1.3); Blood Urea Nitrogen 25 mg/dL (7-17); Calcium 8.2 mg/dL (8.4-10.2); Carbon Dioxide 24 mmol/L (22-30); Chloride 101 mmol/L (98-107); Estimated CRCL calculation 29 ml/min; Estimated Glomerular Filt Rate 36; Glucose 179 mg/dL (65-110); Magnesium 1.6 mg/dL (1.6-2.3); Potassium 4.4 mmol/L (3.4-5.0); Sodium 134 mmol/L (137-145)
[2024-07-16 02:32] LABS: INR 2.7; Prothrombin Time 29.8 Seconds (11.1-14.7)
[2024-07-16] MEDS: PIPERACILLN/TAZ 3.375GM/NS50ML 3.375 GM/50 ML BAG IVPB ×4 (03:14→20:40)
[2024-07-16 07:34] LABS: Glucose Point of Care 146 mg/dl (65-105)
--- NOTE | 2024-07-16 07:55 | ECG_ITS ---
Test Date: 2024-07-16 08:04:03 Measurements Intervals [place] Rate: 84 P: 27 TN: 140 QRS: -36 QRSD: 97 T: -19 QT: 392 QTc: 464 Interpretive Statements SINUS RHYTHM LEFT AXIS DEVIATION PATTERN CONSISTENT WITH PULMONARY DISEASE LEFT VENTRICULAR HYPERTROPHY AND ST-T CHANGE MINIMAL Q WAVES- HIGH LATERAL LEADS BORDERLINE T WAVE ABNORMALITY- ANTEROLAT/INF LEADS BORDERLINE ECG Compared to ECG 07/15/2024 08:09:21 HEART RATE HAS DECREASED Electronically Signed On 07-16-2024 08:12:11 CDT by Erick Bruno D.O.
[2024-07-16] MEDS: NITROGLYCERIN SL 0.4 MG TABLET SUBLINGUAL ×3 (08:35→08:55)
[2024-07-16] MEDS: PANTOPRAZOLE 40 MG TABLET PO (08:56)
[2024-07-16] MEDS: METOPROLOL TARTRATE 12.5 MG TABLET PO ×2 (08:57→10:23)
[2024-07-16] MEDS: ASPIRIN 81 MG ENTERIC TABLET PO (08:57)
[2024-07-16] MEDS: PHYTONADIONE 5 MG TABLET PO (09:19)
[2024-07-16] MEDS: NITROGLYCERIN 0.4 MG/HR PATCH 1 PATCH TRANSDERM (09:20)
[2024-07-16] MEDS: amLODIPine BESYLATE 10 MG TABLET PO (09:22)
[2024-07-16] MEDS: hydrALAZINE HCL 25 MG TABLET PO ×3 (09:27→18:09)
--- NOTE | 2024-07-16 09:50 | WPDCDIQUERY2 ---
CDI Query Clarification Request Pulmonary Embolism has been added to the problem list with a status of Acute. Patient with history of PE and DVT, no recent Chest CT available. Please clarify if Pulmonary Embolism is acute, chronic, or History Of. <JOEL Lyman - Last Filed: 07/16/24 09:54> Provider Comments History of PE <Sean King MD - Last Filed: 07/16/24 17:22>
--- NOTE | 2024-07-16 11:46 | P.PNCA_ITS ---
Progress Note: A&P Assessment and Plan (1) Elevated troponin: Code(s): R79.89 - Other specified abnormal findings of blood chemistry Status: Acute Plan 83-year-old woman with CAD status post CABG (CHRISTIAN to LAD, SVG sequential to OM1 and 2, and SVG to diagonal), paroxysmal atrial fibrillation, mild aortic stenosis, and history of DVT/PE presents with nausea, vomiting, diarrhea, and upper abdominal pain NSTEMI -Given NSTEMI, recommended LHC, however, INR is supratherapeutic at 2.7. Ideally, would like INR to be <1.5 prior to LHC. Will give dose of PO Vitamin K to facilitate lowering the INR. -Continue ASA 81mg once daily. Continue high intensity statin. Continue beta shira. Abdominal pain, nausea, vomiting, diarrhea: -Workup per primary team. Evaluated by General Surgery -- does not appear to have acute cholecystitis; recommend conservative management as patient poor surgical candidate. -Her abdomen feels distended this morning (unclear if this is a change as today is my first day seeing the patient). Discussed with Hospitalist. CAD status post CABG -Continue ASA 81mg once daily. Continue high intensity statin. Continue beta shira. Paroxysmal atrial fibrillation -Continue Metoprolol, will increase to 25mg BID given episode of SVT noted this morning. -Holding Warfarin in anticipation of LHC. Hyperlipidemia -Continue atorvastatin 40 mg every evening Hypertension -Continue Amlodipine, Hydralazine, Metoprolol. Recommendations and plan discussed with Hospitalist. Subjective Date/time seen: 07/16/24 11:46 Interval history: Reason for visit: NSTEMI HPI: 83-year-old woman with CAD status post CABG (CHRISTIAN to LAD, SVG sequential to OM1 and 2, and SVG to diagonal), paroxysmal atrial fibrillation, mild aortic stenosis, and history of DVT/PE presents with nausea, vomiting, diarrhea, and upper abdominal pain. Her last meal was yesterday afternoon in approximately 6 hours afterwards, she started to have nausea quickly followed by severe vomiting as well as diarrhea with upper abdominal pain both in the epigastric, upper right, as well as upper left quadrant pain. She feels better this morning after antinausea medication. Her vomiting has slowed down as well as her diarrhea. 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 Previous to this she was able to ambulate without any anginal equivalent symptoms. Date of service 07/16: Troponins have samantha to 5.9. Reports chest pain this morning. Had run of SVT this morning. Review of Systems Cardiovascular: Cardiovascular: Reports as per HPI Exam Const: General: no acute distress HENMT: Mouth: Yes moist mucous membranes Eyes: General: appearance normal, both eyes and all related structures Sclera: sclerae normal Resp: Effort & Inspection: normal respiratory effort Cardio: Rate: regular rate Rhythm: regular rhythm Heart sounds: no murmurs GI: Inspection: distended Other: Epigastric tenderness Skin: General skin exam: normal color Neuro: Speech: normal speech Psych: Mental Status: mental status grossly normal Affect: normal affect Objective Data Vital Signs Vital Signs: Vital Signs - 24 hr 07/15/24 11:55 07/15/24 11:56 07/15/24 12:00 Temperature 37.2 C Pulse Rate 110 H Respiratory Rate 18 Blood Pressure 181/70 H 179/89 H Pulse Oximetry 94 93 Oxygen Delivery Nasal Cannula Oxygen Flow Rate 2 07/15/24 12:00 07/15/24 12:07 07/15/24 14:00 Temperature Pulse Rate 93 109 H 84 Respiratory Rate Blood Pressure Pulse Oximetry Oxygen Delivery Oxygen Flow Rate 07/15/24 15:58 07/15/24 16:30 07/15/24 16:30 Temperature 37.7 C H Pulse Rate 90 90 Respiratory Rate 24 H 24 H Blood Pressure 155/76 H Pulse Oximetry 93 94 Oxygen Delivery Nasal Cannula Oxygen Flow Rate 2 07/15/24 18:00 07/15/24 19:01 07/15/24 20:00 Temperature 37.9 C H Pulse Rate 92 87 87 Respiratory Rate 18 18 Blood Pressure 158/68 H Pulse Oximetry 94 94 Oxygen Delivery Nasal Cannula Oxygen Flow Rate 2 07/15/24 20:00 07/15/24 20:23 07/15/24 22:00 Temperature Pulse Rate 88 87 77 Respiratory Rate Blood Pressure Pulse Oximetry Oxygen Delivery Oxygen Flow Rate 07/16/24 00:00 07/16/24 00:00 07/16/24 02:00 Temperature 38.0 C H Pulse Rate 77 85 Respiratory Rate 18 18 Blood Pressure 173/72 H Pulse Oximetry 93 93 Oxygen Delivery Nasal Cannula Oxygen Flow Rate 2 07/16/24 02:00 07/16/24 03:43 07/16/24 04:00 Temperature Pulse Rate 83 74 Respiratory Rate 18 Blood Pressure Pulse Oximetry 93 Oxygen Delivery Nasal Cannula Oxygen Flow Rate 2 07/16/24 04:00 07/16/24 06:00 07/16/24 07:52 Temperature 36.8 C Pulse Rate 74 74 Respiratory Rate 16 Blood Pressure 154/64 H Pulse Oximetry 95 96 Oxygen Delivery Nasal Cannula Oxygen Flow Rate 2 07/16/24 07:53 07/16/24 08:05 07/16/24 08:57 Temperature 36.9 C Pulse Rate 75 86 112 H Respiratory Rate 18 24 H Blood Pressure 171/68 H 158/75 H Pulse Oximetry 96 96 Oxygen Delivery Nasal Cannula Oxygen Flow Rate 2 07/16/24 10:23 Temperature Pulse Rate 98 Respiratory Rate Blood Pressure Pulse Oximetry Oxygen Delivery Oxygen Flow Rate Intake/Output Intake/Output: Intake & Output 07/13/24 07/14/24 07/15/24 07/16/24 23:59 23:59 23:59 23:59 Intake Total 1724 400 Output Total 600 500 Balance 1124 -100 Meds/Results Medications: Active Medications Generic Name Dose Route Start Last Admin Trade Name Freq PRN Reason Stop Dose Admin Albuterol 2 puff 07/15/24 12:39 Albuterol Sulfate (*Sp) Aerosol 1 Puff INHALATION QIDRT PRN shortness of breath or wheezing Amlodipine Besylate 10 mg 07/16/24 09:00 07/16/24 09:22 Amlodipine Besylate 10 Mg Tablet PO 10 mg DAILY SAMUEL Administration Aspirin 81 mg 07/16/24 09:00 07/16/24 08:57 Aspirin 81 Mg Enteric Tablet PO 81 mg DAILY SAMUEL Administration Atorvastatin Calcium 80 mg 07/15/24 18:00 07/15/24 17:12 Atorvastatin 40 Mg Tablet PO 80 mg QPM SAMUEL Administration Dextrose 12.5 gm 07/15/24 12:49 Dextrose 50% 25 Gm/50 Ml Syringe IV PUSH PRN PRN Hypoglycemia Protocol Ferrous Sulfate 325 mg 07/16/24 09:00 07/16/24 10:23 Ferrous Sulfate [address] BY MOUTH Not Given DAILY SAMUEL Glucagon 1 mg 07/15/24 12:49 Glucagon For Inj 1 Mg Vial IM PRN PRN Hypoglycemia Protocol Glucose 15 gm 07/15/24 12:49 Glucose Oral Gel 15 Gm Of Glucse In 37.5 Gm Tube PO PRN PRN Hypoglycemia Protocol Hydralazine HCl 25 mg 07/15/24 13:00 07/16/24 09:27 Hydralazine Hcl 25 Mg Tablet PO 25 mg TID SAMUEL Administration Dextrose 1,000 mls @ 100 mls/hr 07/15/24 12:49 Dextrose 5% 1,000 Ml IVPB PRN PRN Hypoglycemia Protocol Piperacillin/Tazobactam/Dextrose 3.375 gm in 50 mls @ 100 mls/hr 07/15/24 21:00 07/16/24 09:08 Zosyn 3.375 Gm/Ns 50 Ml IVPB Infused Q6H SAMUEL Infusion Insulin Aspart 2 - 5 units 07/15/24 17:00 07/16/24 08:33 Insulin Aspart (*Bkc) 100 Units/Ml SUB-Q Not Given TIDWM SAMUEL Protocol Insulin Aspart 1 - 2 units 07/15/24 21:00 07/15/24 20:23 Insulin Aspart (*Bkc) 100 Units/Ml SUB-Q 1 units HS SAMUEL Administration Protocol Latanoprost 1 drop 07/15/24 21:00 07/15/24 20:13 Latanoprost 0.005% Op Soln 2.5 Ml Btl EACH EYE 1 drop HS SAMUEL Administration Metoprolol Tartrate 25 mg 07/16/24 21:00 Metoprolol Tartrate 25 Mg Tablet PO Q12HR SAMUEL Nitroglycerin 0.4 mg 07/16/24 08:26 07/16/24 08:55 Nitroglycerin Sl 0.4 Mg Tablet SUBLINGUAL 0.4 mg Q5MIN PRN Administration Chest Pain Nitroglycerin 1 patch 07/16/24 09:10 07/16/24 09:20 Nitroglycerin 0.4 Mg/Hr Patch TRANSDERM 1 patch QAM SAMUEL Administration Ondansetron HCl 4 mg 07/15/24 09:35 07/15/24 12:18 Ondansetron Inj 4 Mg/2 Ml Vial IV PUSH 4 mg Q4H PRN Administration Nausea Pantoprazole Sodium 40 mg 07/16/24 09:00 07/16/24 08:56 Pantoprazole 40 Mg Tablet PO 40 mg QAM SAMUEL Administration Radiology Results: ITS Impressions Abdomen/Pelvis CT 07/15/24 06:05 Impression: Distended gallbladder with questionable minimal pericholecystic inflammatory change. Consider acute cholecystitis. Consider right upper quadrant ultrasound for further evaluation. Upper Quadrant Ultrasound 07/15/24 08:13 IMPRESSION: 1. Nonspecific trace pericholecystic fluid but with normal-appearing gallbladder with no cholelithiasis or sonographic Smith sign to suggest acute cholecystitis. 2. Likely age-related mild to moderate diffuse right renal cortical atrophy. Chest X-Ray 07/15/24 09:01 IMPRESSION: No acute pulmonary pathology. Chest/Abdomen/Pelvis CT 07/16/24 10:12 IMPRESSION: CHEST: 1. Right pleural effusion. 2. No evidence of pneumonia or pneumothorax seen. ABDOMEN/PELVIS: 1. Distended gallbladder with tiny hyperdensities seen posterior in the gallbladder suggestive of stones. Ultrasound evaluation advised. Surrounding fluid is seen which may indicate cholecystitis. Clinical correlation advised. 2. Residual contrast seen in the urinary bladder. 3. No evidence of appendicitis, diverticulitis or intestinal obstruction. Labs Labs: Laboratory Results - last 24 hr 07/15/24 07/15/24 07/15/24 02:11 14:35 16:10 WBC RBC Hgb Hct MCV MCH MCHC RDW Plt Count MPV Immature Gran % (Auto) Neut % (Auto) Lymph % (Auto) [place] % (Auto) Eos % (Auto) Baso % (Auto) Lymph # (Auto) [place] # (Auto) Eos # (Auto) Baso # (Auto) Abs Immat Gran (auto) Absolute Neuts (auto) Absolute Nucleated RBC Nucleated RBC % PT INR Sodium Potassium Chloride Carbon Dioxide Anion Gap BUN Creatinine Estim Creat Clear Calc Estimated GFR Glucose POC Capillary Glucose 225 H Hemoglobin A1c 7.7 H Calcium Magnesium Total Bilirubin AST ALT Alkaline Phosphatase Troponin I 0.657 H* D Total Protein Albumin 07/15/24 07/15/24 07/16/24 20:07 20:09 01:53 WBC 15.2 H RBC 3.66 L Hgb 11.3 L Hct 34.4 L MCV 94.0 MCH 30.9 MCHC 32.8 RDW 13.2 Plt Count 201 MPV 9.6 Immature Gran % (Auto) 0.7 H Neut % (Auto) 86.9 H Lymph % (Auto) 4.7 L [place] % (Auto) 7.5 Eos % (Auto) 0.0 Baso % (Auto) 0.2 Lymph # (Auto) 0.71 L [place] # (Auto) 1.1 H Eos # (Auto) 0.0 Baso # (Auto) 0.0 Abs Immat Gran (auto) 0.11 H Absolute Neuts (auto) 13.3 H Absolute Nucleated RBC 0.000 Nucleated RBC % 0.0 PT 29.8 H INR 2.7 Sodium 134 L Potassium 4.4 Chloride 101 Carbon Dioxide 24 Anion Gap 9 BUN 25 H Creatinine 1.40 H Estim Creat Clear Calc 29 Estimated GFR 36 L Glucose 179 H POC Capillary Glucose 217 H Hemoglobin A1c Calcium 8.2 L Magnesium 1.6 Total Bilirubin 2.6 H AST 86 H ALT 119 H Alkaline Phosphatase 109 Troponin I 1.550 H* D 4.330 H* D Total Protein 7.0 Albumin 3.9 07/16/24 07/16/24 07:28 07:48 WBC RBC Hgb Hct MCV MCH MCHC RDW Plt Count MPV Immature Gran % (Auto) Neut % (Auto) Lymph % (Auto) [place] % (Auto) Eos % (Auto) Baso % (Auto) Lymph # (Auto) [place] # (Auto) Eos # (Auto) Baso # (Auto) Abs Immat Gran (auto) Absolute Neuts (auto) Absolute Nucleated RBC Nucleated RBC % PT INR Sodium Potassium Chloride Carbon Dioxide Anion Gap BUN Creatinine Estim Creat Clear Calc Estimated GFR Glucose POC Capillary Glucose 146 H Hemoglobin A1c Calcium Magnesium Total Bilirubin AST ALT Alkaline Phosphatase Troponin I 5.900 H* D Total Protein Albumin
[2024-07-16 11:48] LABS: Glucose Point of Care 185 mg/dl (65-105)
[2024-07-16] MEDS: VANCOMYCIN 2,000 MG/NS 500 ML 2,000 MG/500 ML BAG 250 MG IVPB (12:48)
--- NOTE | 2024-07-16 13:55 | PM.PNGS ---
Progress Note: A&P Assessment and Plan (1) Cholecystitis: Code(s): K81.9 - Cholecystitis, unspecified Status: Acute Assessment and Plan: will likely need perc cholecystostomy, will need to further reverse anticoagulation and coordinate c cardiologytons for now, cont IV abx Subjective Subjective Date/Time Seen: 07/16/24 13:55 Interval history: reports cont epigastric pain and general malaise, reports she is thirsty and hungry Review of Systems Review of Systems: All systems reviewed & are unremarkable except as noted in HPI and below Exam Const: General: cooperative, acute distress mild and uncomfortable Resp: Auscultation: clear to auscultation bilaterally Cardio: Rate: regular rate Rhythm: regular rhythm GI: Inspection: normal to inspection and distended GI Palp: Yes abdominal tenderness, Yes Soft to palpation, Yes Tenderness to palpation present (GI), No Guarding due to palpation present (GI) and No Rigid due to palpation Objective Data Vital Signs Vital Signs: Vital Signs - 24 hr 07/15/24 14:00 07/15/24 15:58 07/15/24 16:30 Temperature 37.7 C H Pulse Rate 84 90 Respiratory Rate 24 H 24 H Blood Pressure 155/76 H Pulse Oximetry 93 94 Oxygen Delivery Nasal Cannula Oxygen Flow Rate 2 07/15/24 16:30 07/15/24 18:00 07/15/24 19:01 Temperature 37.9 C H Pulse Rate 90 92 87 Respiratory Rate 18 Blood Pressure 158/68 H Pulse Oximetry 94 Oxygen Delivery Oxygen Flow Rate 07/15/24 20:00 07/15/24 20:00 07/15/24 20:23 Temperature Pulse Rate 87 88 87 Respiratory Rate 18 Blood Pressure Pulse Oximetry 94 Oxygen Delivery Nasal Cannula Oxygen Flow Rate 2 07/15/24 22:00 07/16/24 00:00 07/16/24 00:00 Temperature Pulse Rate 77 77 Respiratory Rate 18 Blood Pressure Pulse Oximetry 93 Oxygen Delivery Nasal Cannula Oxygen Flow Rate 2 07/16/24 02:00 07/16/24 02:00 07/16/24 03:43 Temperature 38.0 C H Pulse Rate 85 83 Respiratory Rate 18 18 Blood Pressure 173/72 H Pulse Oximetry 93 93 Oxygen Delivery Nasal Cannula Oxygen Flow Rate 2 07/16/24 04:00 07/16/24 04:00 07/16/24 06:00 Temperature 36.8 C Pulse Rate 74 74 74 Respiratory Rate 16 Blood Pressure 154/64 H Pulse Oximetry 95 Oxygen Delivery Oxygen Flow Rate 07/16/24 07:52 07/16/24 07:53 07/16/24 08:05 Temperature 36.9 C Pulse Rate 75 86 Respiratory Rate 18 24 H Blood Pressure 171/68 H 158/75 H Pulse Oximetry 96 96 96 Oxygen Delivery Nasal Cannula Nasal Cannula Oxygen Flow Rate 2 2 07/16/24 08:34 07/16/24 08:40 07/16/24 08:50 Temperature Pulse Rate 96 94 92 Respiratory Rate 22 H 22 H 20 Blood Pressure 171/81 H 150/78 H 139/69 Pulse Oximetry 96 96 96 Oxygen Delivery Oxygen Flow Rate 07/16/24 08:57 07/16/24 09:00 07/16/24 09:30 Temperature Pulse Rate 112 H 88 84 Respiratory Rate 20 20 Blood Pressure 129/79 156/85 H Pulse Oximetry 98 96 Oxygen Delivery Oxygen Flow Rate 07/16/24 10:23 07/16/24 11:58 Temperature 37.2 C Pulse Rate 98 98 Respiratory Rate 20 Blood Pressure 128/67 Pulse Oximetry 98 Oxygen Delivery Oxygen Flow Rate Intake/Output Intake/Output: Intake & Output 07/13/24 07/14/24 07/15/24 07/16/24 23:59 23:59 23:59 23:59 Intake Total 1724 400 Output Total 600 500 Balance 1124 -100 Meds/Results Medications: Active Medications Generic Name Dose Route Start Last Admin Trade Name Freq PRN Reason Stop Dose Admin Albuterol 2 puff 07/15/24 12:39 Albuterol Sulfate (*Sp) Aerosol 1 Puff INHALATION QIDRT PRN shortness of breath or wheezing Amlodipine Besylate 10 mg 07/16/24 09:00 07/16/24 09:22 Amlodipine Besylate 10 Mg Tablet PO 10 mg DAILY SAMUEL Administration Aspirin 81 mg 07/16/24 09:00 07/16/24 08:57 Aspirin 81 Mg Enteric Tablet PO 81 mg DAILY SAMUEL Administration Atorvastatin Calcium 80 mg 07/15/24 18:00 07/15/24 17:12 Atorvastatin 40 Mg Tablet PO 80 mg QPM SAMUEL Administration Dextrose 12.5 gm 07/15/24 12:49 Dextrose 50% 25 Gm/50 Ml Syringe IV PUSH PRN PRN Hypoglycemia Protocol Ferrous Sulfate 325 mg 07/16/24 09:00 07/16/24 10:23 Ferrous Sulfate [address] BY MOUTH Not Given DAILY SAMUEL Glucagon 1 mg 07/15/24 12:49 Glucagon For Inj 1 Mg Vial IM PRN PRN Hypoglycemia Protocol Glucose 15 gm 07/15/24 12:49 Glucose Oral Gel 15 Gm Of Glucse In 37.5 Gm Tube PO PRN PRN Hypoglycemia Protocol Hydralazine HCl 25 mg 07/15/24 13:00 07/16/24 09:27 Hydralazine Hcl 25 Mg Tablet PO 25 mg TID SAMUEL Administration Dextrose 1,000 mls @ 100 mls/hr 07/15/24 12:49 Dextrose 5% 1,000 Ml IVPB PRN PRN Hypoglycemia Protocol Piperacillin/Tazobactam/Dextrose 3.375 gm in 50 mls @ 100 mls/hr 07/15/24 21:00 07/16/24 09:08 Zosyn 3.375 Gm/Ns 50 Ml IVPB Infused Q6H SAMUEL Infusion Vancomycin HCl 2,000 mg in 500 mls @ 250 mls/hr 07/16/24 12:35 07/16/24 12:48 Vancomycin 2,000 Mg/Ns 500 Ml IVPB 07/16/24 14:34 250 mls/hr ONCE ONE Administration Vancomycin HCl 1,250 mg in 250 mls @ 166.667 mls/hr 07/18/24 00:00 Vancomycin 1,250 Mg/Ns 250 Ml IVPB Q36H SAMUEL Insulin Aspart 2 - 5 units 07/15/24 17:00 07/16/24 12:43 Insulin Aspart (*Bkc) 100 Units/Ml SUB-Q Not Given TIDWM COUNT [facility] Protocol Insulin Aspart 1 - 2 units 07/15/24 21:00 07/15/24 20:23 Insulin Aspart (*Bkc) 100 Units/Ml SUB-Q 1 units HS SAMUEL Administration Protocol Latanoprost 1 drop 07/15/24 21:00 07/15/24 20:13 Latanoprost 0.005% Op Soln 2.5 Ml Btl EACH EYE 1 drop HS COUNT INCLUDES [facility] Administration Metoprolol Tartrate 25 mg 07/16/24 21:00 Metoprolol Tartrate 25 Mg Tablet PO Q12HR COUNT INCLUDES [facility] Nitroglycerin 0.4 mg 07/16/24 08:26 07/16/24 08:55 Nitroglycerin Sl 0.4 Mg Tablet SUBLINGUAL 0.4 mg Q5MIN PRN Administration Chest Pain Nitroglycerin 1 patch 07/16/24 09:10 07/16/24 09:20 Nitroglycerin 0.4 Mg/Hr Patch TRANSDERM 1 patch QAM SAMUEL Administration Ondansetron HCl 4 mg 07/15/24 09:35 07/15/24 12:18 Ondansetron Inj 4 Mg/2 Ml Vial IV PUSH 4 mg Q4H PRN Administration Nausea Pantoprazole Sodium 40 mg 07/16/24 09:00 07/16/24 08:56 Pantoprazole 40 Mg Tablet PO 40 mg QAM SAMUEL Administration Radiology Results: ITS Impressions Abdomen/Pelvis CT 07/15/24 06:05 Impression: Distended gallbladder with questionable minimal pericholecystic inflammatory change. Consider acute cholecystitis. Consider right upper quadrant ultrasound for further evaluation. Upper Quadrant Ultrasound 07/15/24 08:13 IMPRESSION: 1. Nonspecific trace pericholecystic fluid but with normal-appearing gallbladder with no cholelithiasis or sonographic Smith sign to suggest acute cholecystitis. 2. Likely age-related mild to moderate diffuse right renal cortical atrophy. Chest X-Ray 07/15/24 09:01 IMPRESSION: No acute pulmonary pathology. Chest/Abdomen/Pelvis CT 07/16/24 10:12 IMPRESSION: CHEST: 1. Right pleural effusion. 2. No evidence of pneumonia or pneumothorax seen. ABDOMEN/PELVIS: 1. Distended gallbladder with tiny hyperdensities seen posterior in the gallbladder suggestive of stones. Ultrasound evaluation advised. Surrounding fluid is seen which may indicate cholecystitis. Clinical correlation advised. 2. Residual contrast seen in the urinary bladder. 3. No evidence of appendicitis, diverticulitis or intestinal obstruction. Labs Labs: Laboratory Results - last 24 hr 07/15/24 07/15/24 07/15/24 14:35 16:10 20:07 WBC RBC Hgb Hct MCV MCH MCHC RDW Plt Count MPV Immature Gran % (Auto) Neut % (Auto) Lymph % (Auto) [place] % (Auto) Eos % (Auto) Baso % (Auto) Lymph # (Auto) [place] # (Auto) Eos # (Auto) Baso # (Auto) Abs Immat Gran (auto) Absolute Neuts (auto) Absolute Nucleated RBC Nucleated RBC % PT INR Sodium Potassium Chloride Carbon Dioxide Anion Gap BUN Creatinine Estim Creat Clear Calc Estimated GFR Glucose POC Capillary Glucose 225 H Calcium Magnesium Total Bilirubin AST ALT Alkaline Phosphatase Troponin I 0.657 H* D 1.550 H* D Total Protein Albumin 07/15/24 07/16/24 07/16/24 20:09 01:53 07:28 WBC 15.2 H RBC 3.66 L Hgb 11.3 L Hct 34.4 L MCV 94.0 MCH 30.9 MCHC 32.8 RDW 13.2 Plt Count 201 MPV 9.6 Immature Gran % (Auto) 0.7 H Neut % (Auto) 86.9 H Lymph % (Auto) 4.7 L [place] % (Auto) 7.5 Eos % (Auto) 0.0 Baso % (Auto) 0.2 Lymph # (Auto) 0.71 L [place] # (Auto) 1.1 H Eos # (Auto) 0.0 Baso # (Auto) 0.0 Abs Immat Gran (auto) 0.11 H Absolute Neuts (auto) 13.3 H Absolute Nucleated RBC 0.000 Nucleated RBC % 0.0 PT 29.8 H INR 2.7 Sodium 134 L Potassium 4.4 Chloride 101 Carbon Dioxide 24 Anion Gap 9 BUN 25 H Creatinine 1.40 H Estim Creat Clear Calc 29 Estimated GFR 36 L Glucose 179 H POC Capillary Glucose 217 H 146 H Calcium 8.2 L Magnesium 1.6 Total Bilirubin 2.6 H AST 86 H ALT 119 H Alkaline Phosphatase 109 Troponin I 4.330 H* D Total Protein 7.0 Albumin 3.9 07/16/24 07/16/24 07:48 11:26 WBC RBC Hgb Hct MCV MCH MCHC RDW Plt Count MPV Immature Gran % (Auto) Neut % (Auto) Lymph % (Auto) [place] % (Auto) Eos % (Auto) Baso % (Auto) Lymph # (Auto) [place] # (Auto) Eos # (Auto) Baso # (Auto) Abs Immat Gran (auto) Absolute Neuts (auto) Absolute Nucleated RBC Nucleated RBC % PT INR Sodium Potassium Chloride Carbon Dioxide Anion Gap BUN Creatinine Estim Creat Clear Calc Estimated GFR Glucose POC Capillary Glucose 185 H Calcium Magnesium Total Bilirubin AST ALT Alkaline Phosphatase Troponin I 5.900 H* D Total Protein Albumin
--- NOTE | 2024-07-16 14:24 | P.PNIM_ITS ---
Progress Note: A&P Assessment and Plan (1) Anxiety: Code(s): F41.9 - Anxiety disorder, unspecified Status: Acute (2) Depression: Code(s): F32.9 - Major depressive disorder, single episode, unspecified Status: Acute (3) HTN (hypertension): Qualifiers: Hypertension type: essential hypertension Qualified Code(s): I10 - Essential (primary) hypertension Code(s): I10 - Essential (primary) hypertension Status: Acute (4) CAD (coronary artery disease): Code(s): I25.10 - Atherosclerotic heart disease of [place] coronary artery without angina pectoris Status: Acute (5) Troponin level elevated: Code(s): R79.89 - Other specified abnormal findings of blood chemistry Status: Acute (6) Hx of CABG: Code(s): Z95.1 - Presence of aortocoronary bypass graft Status: Acute (7) Paroxysmal atrial fibrillation: Code(s): I48.0 - Paroxysmal atrial fibrillation Status: Acute (8) Pulmonary embolism: Code(s): I26.99 - Other pulmonary embolism without acute cor pulmonale Status: Acute (9) Diabetes 1.5, managed as type 2: Code(s): E13.9 - Other specified diabetes mellitus without complications Status: Acute (10) Abdominal pain, epigastric: Code(s): R10.13 - Epigastric pain Status: Acute (11) GERD (gastroesophageal reflux disease): Code(s): K21.9 - Gastro-esophageal reflux disease without esophagitis Status: Acute (12) CKD stage 3 due to type 2 diabetes mellitus: Code(s): E11.22 - Type 2 diabetes mellitus with diabetic chronic kidney disease; N18.30 - Chronic kidney disease, stage 3 unspecified Status: Acute Plan This is a 83-year-old female who presents to the ED with nausea vomiting and epigastric pain. She reported pain started about 10:00 p.m. last night. Continue to worsen and hence called EMS. He also reports some nausea vomiting and diarrhea associated with this pain. When EMS arrived patient was saturating 80% on room air and hence was placed on 2 L via nasal cannula. Upon arrival to the ED patient was saturating 93% on room air. Received IV Zofran 1 time dose per EMS. No chest pain reported. In the ED her vitals were stable. EKG showed sinus bradycardia at a rate of 54 beats per minute with no acute ST-T changes. Laboratory evaluation revealed leukocytosis of 12.8 BUN of 28 magnesium 0.9 otherwise unremarkable. Patient received IV fluid bolus and magnesium supplementation CT abdomen pelvis with contrast revealed distended gallbladder with questionable minimal pericholecystic inflammatory change consider acute cholecystitis. Right upper quadrant ultrasound was obtained which showed nonspecific trace pericholecystic fluid but with normal appearing gallbladder with no cholelithiasis or sonographic Smith sign to suggest acute cholecystitis. Chest x-ray revealed no acute cardiopulmonary disease Troponin was mildly elevated at 0.107 followed by 0.331. BNP 3050. She is admitted in the setting for further treatment Nausea vomiting abdominal pain questionable acute cholecystitis. General surgery consultation LFTs normal. Possibly get HIDA scan. start iv zosyn. Patient continues to have GI symptoms. LFTs slightly elevated. Repeat CT today with persistent findings of distended gallbladder with pericholecystic fluid. Now with bacteremia consideration for cholecystostomy tube placement. Non ST elevation AR with elevated troponin trend troponin which has been up trending. Cardiology consult. heparin gtt when inr <2. Needs cardiac cat heterization at some point. With bacteremia suspected type 2 AR. Bacteremia with Gram-positive cocci in pairs will add vancomycin await identification CAD status post CABG in the past Paroxysmal atrial fibrillation on Coumadin commended on hold if INR <2, will start heparin drip. Reversal for Coumadin for potential intervention. 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 Continues reports epigastric discomfort. Discussed with Cardiology and General surgery. Some nausea no vomiting. Review of Systems Review of Systems: All systems reviewed & are unremarkable except as noted in HPI and below Exam Narrative: General: Alert, awake, afebrile, in mild distress with epigastric pain pleasant elderly female. HEENT: PERRL, no rhinorrhea, no post nasal drip, oropharynx clear. Neck: Trachea midline, no JVD, no lymphadenopathy. Cardiovascular: Intermittently tachycardic intermittent AFib on telemetry, no murmurs, rubs or gallops, no peripheral edema. Respiratory: Clear to auscultation bilaterally, no tachypnea, no wheezing, no rhonchi, no rubs, no respiratory distress. Abdomen: Soft, tender epigastric area, mildly distended epigastric area, no rebound, no guarding, no peritoneal signs. Musculoskeletal: No joint swelling or deformity, normal muscle tone. Skin: No rashes or petechia, no signs of infection. Psychiatric: Alert and oriented, normal behavior and judgment for situation. Neurological: Alert and oriented to person, place, and time. Follows all commands. No focal deficits, speech is clear and fluent. Objective Data Vital Signs Vital Signs: Vital Signs - 24 hr 07/15/24 15:58 07/15/24 16:30 07/15/24 16:30 Temperature 99.8 F H Pulse Rate 90 90 Respiratory Rate 24 H 24 H Blood Pressure 155/76 H Pulse Oximetry 93 94 Oxygen Delivery Nasal Cannula Oxygen Flow Rate 2 07/15/24 18:00 07/15/24 19:01 07/15/24 20:00 Temperature 100.3 F H Pulse Rate 92 87 87 Respiratory Rate 18 18 Blood Pressure 158/68 H Pulse Oximetry 94 94 Oxygen Delivery Nasal Cannula Oxygen Flow Rate 2 07/15/24 20:00 07/15/24 20:23 07/15/24 22:00 Temperature Pulse Rate 88 87 77 Respiratory Rate Blood Pressure Pulse Oximetry Oxygen Delivery Oxygen Flow Rate 07/16/24 00:00 07/16/24 00:00 07/16/24 02:00 Temperature 100.4 F H Pulse Rate 77 85 Respiratory Rate 18 18 Blood Pressure 173/72 H Pulse Oximetry 93 93 Oxygen Delivery Nasal Cannula Oxygen Flow Rate 2 07/16/24 02:00 07/16/24 03:43 07/16/24 04:00 Temperature Pulse Rate 83 74 Respiratory Rate 18 Blood Pressure Pulse Oximetry 93 Oxygen Delivery Nasal Cannula Oxygen Flow Rate 2 07/16/24 04:00 07/16/24 06:00 07/16/24 07:52 Temperature 98.3 F Pulse Rate 74 74 Respiratory Rate 16 Blood Pressure 154/64 H Pulse Oximetry 95 96 Oxygen Delivery Nasal Cannula Oxygen Flow Rate 2 07/16/24 07:53 07/16/24 08:05 07/16/24 08:34 Temperature 98.5 F Pulse Rate 75 86 96 Respiratory Rate 18 24 H 22 H Blood Pressure 171/68 H 158/75 H 171/81 H Pulse Oximetry 96 96 96 Oxygen Delivery Nasal Cannula Oxygen Flow Rate 2 07/16/24 08:35 07/16/24 08:40 07/16/24 08:50 Temperature Pulse Rate 94 92 Respiratory Rate 22 H 22 H 20 Blood Pressure 150/78 H 139/69 Pulse Oximetry 96 96 96 Oxygen Delivery Nasal Cannula Oxygen Flow Rate 2 07/16/24 08:57 07/16/24 09:00 07/16/24 09:30 Temperature Pulse Rate 112 H 88 84 Respiratory Rate 20 20 Blood Pressure 129/79 156/85 H Pulse Oximetry 98 96 Oxygen Delivery Oxygen Flow Rate 07/16/24 10:23 07/16/24 11:58 Temperature 99.0 F Pulse Rate 98 98 Respiratory Rate 20 Blood Pressure 128/67 Pulse Oximetry 98 Oxygen Delivery Oxygen Flow Rate Intake/Output Intake/Output: Intake & Output 07/13/24 07/14/24 07/15/24 07/16/24 23:59 23:59 23:59 23:59 Intake Total 1724 400 Output Total 600 900 Balance 1124 -500 Meds/Results Medications: Active Medications Generic Name Dose Route Start Last Admin Trade Name Freq PRN Reason Stop Dose Admin Albuterol 2 puff 07/15/24 12:39 Albuterol Sulfate (*Sp) Aerosol 1 Puff INHALATION QIDRT PRN shortness of breath or wheezing Amlodipine Besylate 10 mg 07/16/24 09:00 07/16/24 09:22 Amlodipine Besylate 10 Mg Tablet PO 10 mg DAILY SAMUEL Administration Aspirin 81 mg 07/16/24 09:00 07/16/24 08:57 Aspirin 81 Mg Enteric Tablet PO 81 mg DAILY SAMUEL Administration Atorvastatin Calcium 80 mg 07/15/24 18:00 07/15/24 17:12 Atorvastatin 40 Mg Tablet PO 80 mg QPM SAMUEL Administration Dextrose 12.5 gm 07/15/24 12:49 Dextrose 50% 25 Gm/50 Ml Syringe IV PUSH PRN PRN Hypoglycemia Protocol Ferrous Sulfate 325 mg 07/16/24 09:00 07/16/24 10:23 Ferrous Sulfate [address] BY MOUTH Not Given DAILY SAMUEL Glucagon 1 mg 07/15/24 12:49 Glucagon For Inj 1 Mg Vial IM PRN PRN Hypoglycemia Protocol Glucose 15 gm 07/15/24 12:49 Glucose Oral Gel 15 Gm Of Glucse In 37.5 Gm Tube PO PRN PRN Hypoglycemia Protocol Hydralazine HCl 25 mg 07/15/24 13:00 07/16/24 09:27 Hydralazine Hcl 25 Mg Tablet PO 25 mg TID SAMUEL Administration Dextrose 1,000 mls @ 100 mls/hr 07/15/24 12:49 Dextrose 5% 1,000 Ml IVPB PRN PRN Hypoglycemia Protocol Piperacillin/Tazobactam/Dextrose 3.375 gm in 50 mls @ 100 mls/hr 07/15/24 21:00 07/16/24 09:08 Zosyn 3.375 Gm/Ns 50 Ml IVPB Infused Q6H SAMUEL Infusion Vancomycin HCl 2,000 mg in 500 mls @ 250 mls/hr 07/16/24 12:35 07/16/24 12:48 Vancomycin 2,000 Mg/Ns 500 Ml IVPB 07/16/24 14:34 250 mls/hr ONCE ONE Administration Vancomycin HCl 1,250 mg in 250 mls @ 166.667 mls/hr 07/18/24 00:00 Vancomycin 1,250 Mg/Ns 250 Ml IVPB Q36H [facility] Insulin Aspart 2 - 5 units 07/15/24 17:00 07/16/24 12:43 Insulin Aspart (*Bkc) 100 Units/Ml SUB-Q Not Given TIDWM [facility] Protocol Insulin Aspart 1 - 2 units 07/15/24 21:00 07/15/24 20:23 Insulin Aspart (*Bkc) 100 Units/Ml SUB-Q 1 units HS SAMUEL Administration Protocol Latanoprost 1 drop 07/15/24 21:00 07/15/24 20:13 Latanoprost 0.005% Op Soln 2.5 Ml Btl EACH EYE 1 drop HS [facility] Administration Metoprolol Tartrate 25 mg 07/16/24 21:00 Metoprolol Tartrate 25 Mg Tablet PO Q12HR SAMUEL Nitroglycerin 0.4 mg 07/16/24 08:26 07/16/24 08:55 Nitroglycerin Sl 0.4 Mg Tablet SUBLINGUAL 0.4 mg Q5MIN PRN Administration Chest Pain Nitroglycerin 1 patch 07/16/24 09:10 07/16/24 09:20 Nitroglycerin 0.4 Mg/Hr Patch TRANSDERM 1 patch QAM SAMUEL Administration Ondansetron HCl 4 mg 07/15/24 09:35 07/15/24 12:18 Ondansetron Inj 4 Mg/2 Ml Vial IV PUSH 4 mg Q4H PRN Administration Nausea Pantoprazole Sodium 40 mg 07/16/24 09:00 07/16/24 08:56 Pantoprazole 40 Mg Tablet PO 40 mg QAM SAMUEL Administration Radiology Results: ITS Impressions Abdomen/Pelvis CT 07/15/24 06:05 Impression: Distended gallbladder with questionable minimal pericholecystic inflammatory change. Consider acute cholecystitis. Consider right upper quadrant ultrasound for further evaluation. Upper Quadrant Ultrasound 07/15/24 08:13 IMPRESSION: 1. Nonspecific trace pericholecystic fluid but with normal-appearing gallbladder with no cholelithiasis or sonographic Smith sign to suggest acute cholecystitis. 2. Likely age-related mild to moderate diffuse right renal cortical atrophy. Chest X-Ray 07/15/24 09:01 IMPRESSION: No acute pulmonary pathology. Chest/Abdomen/Pelvis CT 07/16/24 10:12 IMPRESSION: CHEST: 1. Right pleural effusion. 2. No evidence of pneumonia or pneumothorax seen. ABDOMEN/PELVIS: 1. Distended gallbladder with tiny hyperdensities seen posterior in the gallbladder suggestive of stones. Ultrasound evaluation advised. Surrounding fluid is seen which may indicate cholecystitis. Clinical correlation advised. 2. Residual contrast seen in the urinary bladder. 3. No evidence of appendicitis, diverticulitis or intestinal obstruction. Labs Labs: Laboratory Results - last 24 hr 07/15/24 07/15/24 07/15/24 14:35 16:10 20:07 WBC RBC Hgb Hct MCV MCH MCHC RDW Plt Count MPV Immature Gran % (Auto) Neut % (Auto) Lymph % (Auto) [place] % (Auto) Eos % (Auto) Baso % (Auto) Lymph # (Auto) [place] # (Auto) Eos # (Auto) Baso # (Auto) Abs Immat Gran (auto) Absolute Neuts (auto) Absolute Nucleated RBC Nucleated RBC % PT INR Sodium Potassium Chloride Carbon Dioxide Anion Gap BUN Creatinine Estim Creat Clear Calc Estimated GFR Glucose POC Capillary Glucose 225 H Calcium Magnesium Total Bilirubin AST ALT Alkaline Phosphatase Troponin I 0.657 H* D 1.550 H* D Total Protein Albumin 07/15/24 07/16/24 07/16/24 20:09 01:53 07:28 WBC 15.2 H RBC 3.66 L Hgb 11.3 L Hct 34.4 L MCV 94.0 MCH 30.9 MCHC 32.8 RDW 13.2 Plt Count 201 MPV 9.6 Immature Gran % (Auto) 0.7 H Neut % (Auto) 86.9 H Lymph % (Auto) 4.7 L [place] % (Auto) 7.5 Eos % (Auto) 0.0 Baso % (Auto) 0.2 Lymph # (Auto) 0.71 L [place] # (Auto) 1.1 H Eos # (Auto) 0.0 Baso # (Auto) 0.0 Abs Immat Gran (auto) 0.11 H Absolute Neuts (auto) 13.3 H Absolute Nucleated RBC 0.000 Nucleated RBC % 0.0 PT 29.8 H INR 2.7 Sodium 134 L Potassium 4.4 Chloride 101 Carbon Dioxide 24 Anion Gap 9 BUN 25 H Creatinine 1.40 H Estim Creat Clear Calc 29 Estimated GFR 36 L Glucose 179 H POC Capillary Glucose 217 H 146 H Calcium 8.2 L Magnesium 1.6 Total Bilirubin 2.6 H AST 86 H ALT 119 H Alkaline Phosphatase 109 Troponin I 4.330 H* D Total Protein 7.0 Albumin 3.9 07/16/24 07/16/24 07:48 11:26 WBC RBC Hgb Hct MCV MCH MCHC RDW Plt Count MPV Immature Gran % (Auto) Neut % (Auto) Lymph % (Auto) [place] % (Auto) Eos % (Auto) Baso % (Auto) Lymph # (Auto) [place] # (Auto) Eos # (Auto) Baso # (Auto) Abs Immat Gran (auto) Absolute Neuts (auto) Absolute Nucleated RBC Nucleated RBC % PT INR Sodium Potassium Chloride Carbon Dioxide Anion Gap BUN Creatinine Estim Creat Clear Calc Estimated GFR Glucose POC Capillary Glucose 185 H Calcium Magnesium Total Bilirubin AST ALT Alkaline Phosphatase Troponin I 5.900 H* D Total Protein Albumin
[2024-07-16] MEDS: METOPROLOL TARTRATE INJ 5 MG/5 ML VIAL IV PUSH (15:34)
[2024-07-16 16:14] LABS: Glucose Point of Care 164 mg/dl (65-105)
[2024-07-16] MEDS: ATORVASTATIN 40 MG TABLET 80 MG PO (18:09)
[2024-07-16 20:06] LABS: Glucose Point of Care 284 mg/dl (65-105)
[2024-07-16] MEDS: LATANOPROST 0.005% OP SOLN 2.5 ML BTL 1 DROP EACH EYE (20:39)
[2024-07-16] MEDS: METOPROLOL TARTRATE 50 MG TAB PO (20:40)
[2024-07-17] VITALS (18 sets, daily range): BP systolic 112–136; BP diastolic 6–65; PULSE 60–75; RESP 16–20; TEMP 36.6–37.3; O2SAT 94–100
[2024-07-17] MEDS: PIPERACILLN/TAZ 3.375GM/NS50ML 3.375 GM/50 ML BAG IVPB ×4 (03:35→20:12)
[2024-07-17 05:13] LABS: Basophils Percent Auto 0.4 % (0.2-1.2); Eosinophils Percent Auto 0.2 % (0-4.4); Hematocrit 30.8 % (37.0-47.0); Hemoglobin 10.1 g/dL (12.0-15.0); Immature Granulocyte Absolute 0.06 K/mm3 (0.00-0.031); Immature Granulocyte Percent A 0.6 % (0-0.5); Lymphocytes Absolute Auto 0.82 K/mm3 (0.9-3.2); Lymphocytes Percent Auto 7.8 % (18.3-44.2); Mean Corpuscular HGB Conc 32.8 g/dl (32-36); Mean Corpuscular Hemoglobin 30.3 pg (26-34); Mean Corpuscular Volume 92.5 fl (80-100); Mean Platelet Volume 9.9 fl (7.4-10.4); Monocytes Absolute Auto 0.8 K/mm3 (0.1-0.6); Monocytes Percent Auto 7.3 % (2.6-8.5); Neutrophils Absolute Auto 8.8 K/mm3 (1.3-6.7); Neutrophils Percent Auto 83.7 % (45.5-73.1); Platelet Count Result 195 k/mm3 (150-375); Red Blood Count 3.33 M/mm3 (4.2-5.4); Red Cell Distribution Width 12.7 % (11.5-14.5); White Blood Count 10.5 K/mm3 (4.5-10.0)
[2024-07-17 05:23] LABS: INR 1.5; Prothrombin Time 18.3 Seconds (11.1-14.7)
[2024-07-17 05:24] LABS: Alanine Aminotransferase 89 U/L (6-35); Albumin Level 3.1 g/dL (3.5-5.1); Alkaline Phosphatase 108 U/L (38-126); Anion Gap 6 mmol/L (4-12); Aspartate Amino Transferase 57 U/L (14-36); Bilirubin,Total 2.2 mg/dL (0.2-1.3); Blood Urea Nitrogen 32 mg/dL (7-17); Carbon Dioxide 26 mmol/L (22-30); Chloride 101 mmol/L (98-107); Estimated CRCL calculation 24 ml/min; Estimated Glomerular Filt Rate 29; Glucose 145 mg/dL (65-110); Magnesium 1.8 mg/dL (1.6-2.3); Potassium 3.8 mmol/L (3.4-5.0); Sodium 133 mmol/L (137-145)
[2024-07-17 08:55] LABS: Glucose Point of Care 135 mg/dl (65-105)
[2024-07-17] MEDS: hydrALAZINE HCL 25 MG TABLET PO ×3 (09:14→16:35)
[2024-07-17] MEDS: PANTOPRAZOLE 40 MG TABLET PO (09:14)
[2024-07-17] MEDS: amLODIPine BESYLATE 10 MG TABLET PO (09:14)
[2024-07-17] MEDS: ASPIRIN 81 MG ENTERIC TABLET PO (09:14)
[2024-07-17] MEDS: NITROGLYCERIN 0.4 MG/HR PATCH 1 PATCH TRANSDERM (09:15)
[2024-07-17] MEDS: METOPROLOL TARTRATE 50 MG TAB PO ×2 (09:15→20:12)
--- NOTE | 2024-07-17 09:25 | PM.IMPN ---
Progress Note: A&P Assessment and Plan (1) Anxiety: Code(s): F41.9 - Anxiety disorder, unspecified Status: Acute (2) Depression: Code(s): F32.9 - Major depressive disorder, single episode, unspecified Status: Acute (3) HTN (hypertension): Qualifiers: Hypertension type: essential hypertension Qualified Code(s): I10 - Essential (primary) hypertension Code(s): I10 - Essential (primary) hypertension Status: Acute (4) CAD (coronary artery disease): Code(s): I25.10 - Atherosclerotic heart disease of [place] coronary artery without angina pectoris Status: Acute (5) Troponin level elevated: Code(s): R79.89 - Other specified abnormal findings of blood chemistry Status: Acute (6) Hx of CABG: Code(s): Z95.1 - Presence of aortocoronary bypass graft Status: Acute (7) Paroxysmal atrial fibrillation: Code(s): I48.0 - Paroxysmal atrial fibrillation Status: Acute (8) Pulmonary embolism: Code(s): I26.99 - Other pulmonary embolism without acute cor pulmonale Status: Acute (9) Diabetes 1.5, managed as type 2: Code(s): E13.9 - Other specified diabetes mellitus without complications Status: Acute (10) Abdominal pain, epigastric: Code(s): R10.13 - Epigastric pain Status: Acute (11) GERD (gastroesophageal reflux disease): Code(s): K21.9 - Gastro-esophageal reflux disease without esophagitis Status: Acute (12) CKD stage 3 due to type 2 diabetes mellitus: Code(s): E11.22 - Type 2 diabetes mellitus with diabetic chronic kidney disease; N18.30 - Chronic kidney disease, stage 3 unspecified Status: Acute Plan This is a 83-year-old female who presents to the ED with nausea vomiting and epigastric pain. She reported pain started about 10:00 p.m. last night. Continue to worsen and hence called EMS. He also reports some nausea vomiting and diarrhea associated with this pain. When EMS arrived patient was saturating 80% on room air and hence was placed on 2 L via nasal cannula. Upon arrival to the ED patient was saturating 93% on room air. Received IV Zofran 1 time dose per EMS. No chest pain reported. EKG showed sinus bradycardia at a rate of 54 beats per minute with no acute ST-T changes. Acute cholecystitis Laboratory evaluation revealed leukocytosis of 12.8 CT abdomen pelvis with contrast revealed distended gallbladder with questionable minimal pericholecystic inflammatory change consider acute cholecystitis. Right upper quadrant ultrasound was obtained which showed nonspecific trace pericholecystic fluid but with normal appearing gallbladder with no cholelithiasis or sonographic Smith sign to suggest acute cholecystitis. General surgery consultation Continue Tyree Chest x-ray revealed no acute cardiopulmonary disease Troponin was mildly elevated at 0.107 followed by 0.331. BNP 3050. She is admitted in the setting for further treatment Bacteremia Streptococcus gallolyticus ssp pasteurianus of blood culture July 15 Possible due to acute cholecystitis Continue cale Clements vancomycin per from cyst Repeat blood culture today Non ST elevation WI versus demand ischemia Cardiology consult. heparin gtt when inr <2. History of CAD status post CABG in the past Cardiology plans cardiac catheterization Paroxysmal atrial fibrillation start heparin drip. Reversal for Coumadin for potential intervention. Heparin drip when INR goes below 2 Dehydration, hypo magnesemia BUN of 28 magnesium 0.9 otherwise unremarkable. Patient received IV fluid bolus and magnesium supplementation type 2 diabetes Patient is on sliding scale a.c. q.h.s. Glucose is well controlled Hypertension On hydralazine 25 mg t.i.d. p.o. Code status full code Subjective Date/time seen: 07/17/24 09:25 Interval history: I saw examined patient today, patient feels better today, denies abdomen pain chest pain. Patient is afebrile blood pressure stable, leukocytosis trending down,, creatinine trending up Exam Narrative: GENERAL: Pleasant, in no acute distress. Well-nourished. - EYES: EOMI. Anicteric. - HENT: Moist mucous membranes. - LUNGS: Clear to auscultation bilaterally, no wheezing, rhonchi, or rales. - CARDIOVASCULAR: Regular rate and rhythm. No murmur. No JVD. - ABDOMEN: Soft, epigastric tender and non-distended. No palpable masses. - EXTREMITIES: No edema. Peripheral pulses 2+. Non-tender. - NEUROLOGIC: No focal neurological deficits. CN II-XII grossly intact. - PSYCHIATRIC: Awake, Alert and oriented x 3. Appropriate mood and affect. - SKIN: No rashes or lesions. Warm. - LYMPH: No cervical lymphadenopathy. Objective Data Vital Signs Vital Signs: Vital Signs - 24 hr 07/16/24 09:30 07/16/24 10:00 07/16/24 10:23 Temperature Pulse Rate 84 110 H 98 Respiratory Rate 20 Blood Pressure 156/85 H Pulse Oximetry 96 Oxygen Delivery Oxygen Flow Rate 07/16/24 11:58 07/16/24 12:15 07/16/24 12:15 Temperature 99.0 F Pulse Rate 98 121 H Respiratory Rate 20 20 Blood Pressure 128/67 Pulse Oximetry 98 98 Oxygen Delivery Nasal Cannula Oxygen Flow Rate 2 07/16/24 14:00 07/16/24 14:37 07/16/24 14:43 Temperature Pulse Rate 128 H 139 H 121 H Respiratory Rate 24 H Blood Pressure 154/111 H 154/111 H Pulse Oximetry 96 Oxygen Delivery Nasal Cannula Oxygen Flow Rate 2 07/16/24 15:34 07/16/24 16:00 07/16/24 16:00 Temperature Pulse Rate 135 H 116 H Respiratory Rate 20 Blood Pressure Pulse Oximetry 96 Oxygen Delivery Nasal Cannula Oxygen Flow Rate 2 07/16/24 16:28 07/16/24 18:00 07/16/24 20:00 Temperature 98.4 F Pulse Rate 116 H 77 Respiratory Rate 20 Blood Pressure 141/77 H Pulse Oximetry 96 96 Oxygen Delivery Nasal Cannula Oxygen Flow Rate 2 07/16/24 20:00 07/16/24 20:10 07/16/24 20:40 Temperature 98.4 F Pulse Rate 77 74 74 Respiratory Rate 18 Blood Pressure 147/63 H Pulse Oximetry 94 Oxygen Delivery Oxygen Flow Rate 07/16/24 22:59 07/16/24 23:27 07/17/24 00:00 Temperature 99.1 F Pulse Rate 75 69 Respiratory Rate 16 Blood Pressure 132/65 Pulse Oximetry 96 96 94 Oxygen Delivery Nasal Cannula Nasal Cannula Oxygen Flow Rate 1 2 07/17/24 00:00 07/17/24 04:00 07/17/24 04:00 Temperature Pulse Rate 75 66 Respiratory Rate Blood Pressure Pulse Oximetry 94 Oxygen Delivery Nasal Cannula Oxygen Flow Rate 2 07/17/24 04:07 07/17/24 08:00 Temperature 98.7 F 98.4 F Pulse Rate 69 66 Respiratory Rate 18 18 Blood Pressure 112/51 L 114/55 L Pulse Oximetry 95 94 Oxygen Delivery Oxygen Flow Rate Intake/Output Intake/Output: Intake & Output 04/20/07/15/24 07/16/24 07/17/24 23:59 23:59 23:59 23:59 Intake Total 1724 800 300 Output Total 600 1400 500 Balance 1999 -600 -945 Meds/Results Medications: Active Medications Generic Name Dose Route Start Last Admin Trade Name Freq PRN Reason Stop Dose Admin Albuterol 2 puff 07/15/24 12:39 Albuterol Sulfate (*Sp) Aerosol 1 Puff INHALATION QIDRT PRN shortness of breath or wheezing Amlodipine Besylate 10 mg 07/16/24 09:00 07/17/24 09:14 Amlodipine Besylate 10 Mg Tablet PO 10 mg DAILY SAMUEL Administration Aspirin 81 mg 07/16/24 09:00 07/17/24 09:14 Aspirin 81 Mg Enteric Tablet PO 81 mg DAILY SAMUEL Administration Atorvastatin Calcium 80 mg 07/15/24 18:00 07/16/24 18:09 Atorvastatin 40 Mg Tablet PO 80 mg QPM SAMUEL Administration Dextrose 12.5 gm 07/15/24 12:49 Dextrose 50% 25 Gm/50 Ml Syringe IV PUSH PRN PRN Hypoglycemia Protocol Ferrous Sulfate 325 mg 07/16/24 09:00 07/16/24 10:23 Ferrous Sulfate [address] BY MOUTH Not Given DAILY SAMUEL Glucagon 1 mg 07/15/24 12:49 Glucagon For Inj 1 Mg Vial IM PRN PRN Hypoglycemia Protocol Glucose 15 gm 07/15/24 12:49 Glucose Oral Gel 15 Gm Of Glucse In 37.5 Gm Tube PO PRN PRN Hypoglycemia Protocol Hydralazine HCl 25 mg 07/15/24 13:00 07/17/24 09:14 Hydralazine Hcl 25 Mg Tablet PO 25 mg TID SAMUEL Administration Dextrose 1,000 mls @ 100 mls/hr 07/15/24 12:49 Dextrose 5% 1,000 Ml IVPB PRN PRN Hypoglycemia Protocol Piperacillin/Tazobactam/Dextrose 3.375 gm in 50 mls @ 100 mls/hr 07/15/24 21:00 07/17/24 09:15 Zosyn 3.375 Gm/Ns 50 Ml IVPB 100 mls/hr Q6H SAMUEL Administration Vancomycin HCl 1,250 mg in 250 mls @ 166.667 mls/hr 07/18/24 00:00 Vancomycin 1,250 Mg/Ns 250 Ml IVPB Q36H SAMUEL Insulin Aspart 2 - 5 units 07/15/24 17:00 07/17/24 08:56 Insulin Aspart (*Bkc) 100 Units/Ml SUB-Q Not Given TIDWM [facility] Protocol Insulin Aspart 1 - 2 units 07/15/24 21:00 07/16/24 20:55 Insulin Aspart (*Bkc) 100 Units/Ml SUB-Q Not Given HS [facility] Protocol Latanoprost 1 drop 07/15/24 21:00 07/16/24 20:39 Latanoprost 0.005% Op Soln 2.5 Ml Btl EACH EYE 1 drop HS [facility] Administration Metoprolol Tartrate 50 mg 07/16/24 21:00 07/17/24 09:15 Metoprolol Tartrate 50 Mg Tab PO 50 mg Q12HR [facility]UEL Administration Metoprolol Tartrate 5 mg 07/16/24 14:48 07/16/24 15:34 Metoprolol Tartrate Inj 5 Mg/5 Ml Vial IV PUSH 5 mg Q4H PRN Administration Tachycardia Nitroglycerin 0.4 mg 07/16/24 08:26 07/16/24 08:55 Nitroglycerin Sl 0.4 Mg Tablet SUBLINGUAL 0.4 mg Q5MIN PRN Administration Chest Pain Nitroglycerin 1 patch 07/16/24 09:10 07/17/24 09:15 Nitroglycerin 0.4 Mg/Hr Patch TRANSDERM 1 patch [facility] Administration Ondansetron HCl 4 mg 07/15/24 09:35 07/15/24 12:18 Ondansetron Inj 4 Mg/2 Ml Vial IV PUSH 4 mg Q4H PRN Administration Nausea Pantoprazole Sodium 40 mg 07/16/24 09:00 07/17/24 09:14 Pantoprazole 40 Mg Tablet PO 40 mg QAM [facility] Administration Radiology Results: ITS Impressions Abdomen/Pelvis CT 07/15/24 06:05 Impression: Distended gallbladder with questionable minimal pericholecystic inflammatory change. Consider acute cholecystitis. Consider right upper quadrant ultrasound for further evaluation. Upper Quadrant Ultrasound 07/15/24 08:13 IMPRESSION: 1. Nonspecific trace pericholecystic fluid but with normal-appearing gallbladder with no cholelithiasis or sonographic Smith sign to suggest acute cholecystitis. 2. Likely age-related mild to moderate diffuse right renal cortical atrophy. Chest X-Ray 07/15/24 09:01 IMPRESSION: No acute pulmonary pathology. Chest/Abdomen/Pelvis CT 07/16/24 10:12 IMPRESSION: CHEST: 1. Right pleural effusion. 2. No evidence of pneumonia or pneumothorax seen. ABDOMEN/PELVIS: 1. Distended gallbladder with tiny hyperdensities seen posterior in the gallbladder suggestive of stones. Ultrasound evaluation advised. Surrounding fluid is seen which may indicate cholecystitis. Clinical correlation advised. 2. Residual contrast seen in the urinary bladder. 3. No evidence of appendicitis, diverticulitis or intestinal obstruction. Labs Labs: Laboratory Results - last 24 hr 07/16/24 07/16/24 07/16/24 11:26 13:57 15:55 WBC RBC Hgb Hct MCV MCH MCHC RDW Plt Count MPV Immature Gran % (Auto) Neut % (Auto) Lymph % (Auto) [place] % (Auto) Eos % (Auto) Baso % (Auto) Lymph # (Auto) [place] # (Auto) Eos # (Auto) Baso # (Auto) Abs Immat Gran (auto) Absolute Neuts (auto) Absolute Nucleated RBC Nucleated RBC % PT INR Sodium Potassium Chloride Carbon Dioxide Anion Gap BUN Creatinine Estim Creat Clear Calc Estimated GFR Glucose POC Capillary Glucose 185 H 164 H Calcium Magnesium Total Bilirubin AST ALT Alkaline Phosphatase Troponin I 3.960 H* D Total Protein Albumin 07/16/24 07/17/24 07/17/24 19:56 04:38 07:33 WBC 10.5 H RBC 3.33 L Hgb 10.1 L Hct 30.8 L MCV 92.5 MCH 30.3 MCHC 32.8 RDW 12.7 Plt Count 195 MPV 9.9 Immature Gran % (Auto) 0.6 H Neut % (Auto) 83.7 H Lymph % (Auto) 7.8 L [place] % (Auto) 7.3 Eos % (Auto) 0.2 Baso % (Auto) 0.4 Lymph # (Auto) 0.82 L [place] # (Auto) 0.8 H Eos # (Auto) 0.0 Baso # (Auto) 0.0 Abs Immat Gran (auto) 0.06 H Absolute Neuts (auto) 8.8 H Absolute Nucleated RBC 0.000 Nucleated RBC % 0.0 PT 18.3 H D INR 1.5 Sodium 133 L Potassium 3.8 Chloride 101 Carbon Dioxide 26 Anion Gap 6 BUN 32 H Creatinine 1.67 H Estim Creat Clear Calc 24 Estimated GFR 29 L Glucose 145 H POC Capillary Glucose 284 H 135 H Calcium 8.0 L Magnesium 1.8 Total Bilirubin 2.2 H AST 57 H ALT 89 H Alkaline Phosphatase 108 Troponin I Total Protein 6.0 L Albumin 3.1 L
--- NOTE | 2024-07-17 10:01 | PM.PNCARD ---
Progress Note: A&P Assessment and Plan (1) Elevated troponin: Code(s): R79.89 - Other specified abnormal findings of blood chemistry Status: Acute Plan 83-year-old woman with CAD status post CABG (CHRISTIAN to LAD, SVG sequential to OM1 and 2, and SVG to diagonal), paroxysmal atrial fibrillation, mild aortic stenosis, and history of DVT/PE presents with nausea, vomiting, diarrhea, and upper abdominal pain NSTEMI -Given NSTEMI, recommended LHC, however, patient is now bacteremic and will likely need perc abby. At this time, there is no urgent/emergent indication for LHC. Will plan for LHC once she has recovered from her cholecystitis, bacteremia. -Continue ASA 81mg once daily. Continue high intensity statin. Continue beta shira. Bacteremia -On broad spectrum antibiotics as per primary team. Abdominal pain, nausea, vomiting, diarrhea: -Workup per primary team. Evaluated by General Surgery -- likely will need per abby CAD status post CABG -Continue ASA 81mg once daily. Continue high intensity statin. Continue beta shira. Paroxysmal atrial fibrillation with RVR -Increased Metoprolol to 50mg BID given PAF with RVR note on tele. -Holding Warfarin in anticipation of procedures. -Can start Heparin drip since INR <2, however, may be going for perc abby today, so would hold off on starting Heparin drip until procedure is done. Hyperlipidemia -Continue Atorvastatin 40 mg every evening Hypertension -Continue Amlodipine, Hydralazine, Metoprolol. Recommendations and plan discussed with Hospitalist. Subjective Date/time seen: 07/17/24 10:01 Interval history: Reason for visit: NSTEMI HPI: 83-year-old woman with CAD status post CABG (CHRISTIAN to LAD, SVG sequential to OM1 and 2, and SVG to diagonal), paroxysmal atrial fibrillation, mild aortic stenosis, and history of DVT/PE presents with nausea, vomiting, diarrhea, and upper abdominal pain. Her last meal was yesterday afternoon in approximately 6 hours afterwards, she started to have nausea quickly followed by severe vomiting as well as diarrhea with upper abdominal pain both in the epigastric, upper right, as well as upper left quadrant pain. She feels better this morning after antinausea medication. Her vomiting has slowed down as well as her diarrhea. 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 Previous to this she was able to ambulate without any anginal equivalent symptoms. Date of service 07/16: Troponins have samantha to 5.9. Reports chest pain this morning. Had run of SVT this morning. Date of service 07/17: No chest pain this morning. Reports feeling hungry, otherwise okay. Tele with paroxysmal AFIB with RVR. Review of Systems Cardiovascular: Cardiovascular: Reports as per HPI Exam Const: General: comfortable and no acute distress HENMT: Mouth: Yes moist mucous membranes Eyes: General: appearance normal, both eyes and all related structures Sclera: sclerae normal Resp: Effort & Inspection: normal respiratory effort Cardio: Rate: regular rate Rhythm: regular rhythm Skin: General skin exam: normal color Neuro: Speech: normal speech Psych: Mental Status: mental status grossly normal Affect: normal affect Objective Data Vital Signs Vital Signs: Vital Signs - 24 hr 07/16/24 10:23 07/16/24 11:58 07/16/24 12:15 Temperature 37.2 C Pulse Rate 98 98 Respiratory Rate 20 20 Blood Pressure 128/67 Pulse Oximetry 98 98 Oxygen Delivery Nasal Cannula Oxygen Flow Rate 2 07/16/24 12:15 07/16/24 14:00 07/16/24 14:37 Temperature Pulse Rate 121 H 128 H 139 H Respiratory Rate Blood Pressure 154/111 H Pulse Oximetry Oxygen Delivery Oxygen Flow Rate 07/16/24 14:43 07/16/24 15:34 07/16/24 16:00 Temperature Pulse Rate 121 H 135 H Respiratory Rate 24 H 20 Blood Pressure 154/111 H Pulse Oximetry 96 96 Oxygen Delivery Nasal Cannula Nasal Cannula Oxygen Flow Rate 2 2 07/16/24 16:00 07/16/24 16:28 07/16/24 18:00 Temperature 36.9 C Pulse Rate 116 H 116 H 77 Respiratory Rate 20 Blood Pressure 141/77 H Pulse Oximetry 96 Oxygen Delivery Oxygen Flow Rate 07/16/24 20:00 07/16/24 20:00 07/16/24 20:10 Temperature 36.9 C Pulse Rate 77 74 Respiratory Rate 18 Blood Pressure 147/63 H Pulse Oximetry 96 94 Oxygen Delivery Nasal Cannula Oxygen Flow Rate 2 07/16/24 20:40 07/16/24 22:59 07/16/24 23:27 Temperature Pulse Rate 74 75 Respiratory Rate Blood Pressure Pulse Oximetry 96 96 Oxygen Delivery Nasal Cannula Nasal Cannula Oxygen Flow Rate 1 2 07/17/24 00:00 07/17/24 00:00 07/17/24 04:00 Temperature 37.3 C Pulse Rate 69 75 Respiratory Rate 16 Blood Pressure 132/65 Pulse Oximetry 94 94 Oxygen Delivery Nasal Cannula Oxygen Flow Rate 2 07/17/24 04:00 07/17/24 04:07 07/17/24 08:00 Temperature 37.1 C 36.9 C Pulse Rate 66 69 66 Respiratory Rate 18 18 Blood Pressure 112/51 L 114/55 L Pulse Oximetry 95 94 Oxygen Delivery Oxygen Flow Rate Intake/Output Intake/Output: Intake & Output 07/14/24 07/15/24 07/16/24 07/17/24 23:59 23:59 23:59 23:59 Intake Total 1724 800 300 Output Total 600 1400 500 Balance 1124 -600 -200 Meds/Results Medications: Active Medications Generic Name Dose Route Start Last Admin Trade Name Freq PRN Reason Stop Dose Admin Albuterol 2 puff 07/15/24 12:39 Albuterol Sulfate (*Sp) Aerosol 1 Puff INHALATION QIDRT PRN shortness of breath or wheezing Amlodipine Besylate 10 mg 07/16/24 09:00 07/17/24 09:14 Amlodipine Besylate 10 Mg Tablet PO 10 mg DAILY SAMUEL Administration Aspirin 81 mg 07/16/24 09:00 07/17/24 09:14 Aspirin 81 Mg Enteric Tablet PO 81 mg DAILY SAMUEL Administration Atorvastatin Calcium 80 mg 07/15/24 18:00 07/16/24 18:09 Atorvastatin 40 Mg Tablet PO 80 mg QPM [facility]UEL Administration Dextrose 12.5 gm 07/15/24 12:49 Dextrose 50% 25 Gm/50 Ml Syringe IV PUSH PRN PRN Hypoglycemia Protocol Ferrous Sulfate 325 mg 07/16/24 09:00 07/16/24 10:23 Ferrous Sulfate [address] BY MOUTH Not Given DAILY SAMUEL Glucagon 1 mg 07/15/24 12:49 Glucagon For Inj 1 Mg Vial IM PRN PRN Hypoglycemia Protocol Glucose 15 gm 07/15/24 12:49 Glucose Oral Gel 15 Gm Of Glucse In 37.5 Gm Tube PO PRN PRN Hypoglycemia Protocol Hydralazine HCl 25 mg 07/15/24 13:00 07/17/24 09:14 Hydralazine Hcl 25 Mg Tablet PO 25 mg TID SAMUEL Administration Dextrose 1,000 mls @ 100 mls/hr 07/15/24 12:49 Dextrose 5% 1,000 Ml IVPB PRN PRN Hypoglycemia Protocol Piperacillin/Tazobactam/Dextrose 3.375 gm in 50 mls @ 100 mls/hr 07/15/24 21:00 07/17/24 09:15 Zosyn 3.375 Gm/Ns 50 Ml IVPB 100 mls/hr Q6H [facility]EL Administration Vancomycin HCl 1,250 mg in 250 mls @ 166.667 mls/hr 07/18/24 00:00 Vancomycin 1,250 Mg/Ns 250 Ml IVPB Q36H [facility]EL Insulin Aspart 2 - 5 units 07/15/24 17:00 07/17/24 08:56 Insulin Aspart (*Bkc) 100 Units/Ml SUB-Q Not Given TIDWM [facility] Protocol Insulin Aspart 1 - 2 units 07/15/24 21:00 07/16/24 20:55 Insulin Aspart (*Bkc) 100 Units/Ml SUB-Q Not Given HS [facility] Protocol Latanoprost 1 drop 07/15/24 21:00 07/16/24 20:39 Latanoprost 0.005% Op Soln 2.5 Ml Btl EACH EYE 1 drop HS [facility]UEL Administration Metoprolol Tartrate 50 mg 07/16/24 21:00 07/17/24 09:15 Metoprolol Tartrate 50 Mg Tab PO 50 mg Q12HR [facility]UEL Administration Metoprolol Tartrate 5 mg 07/16/24 14:48 07/16/24 15:34 Metoprolol Tartrate Inj 5 Mg/5 Ml Vial IV PUSH 5 mg Q4H PRN Administration Tachycardia Nitroglycerin 0.4 mg 07/16/24 08:26 07/16/24 08:55 Nitroglycerin Sl 0.4 Mg Tablet SUBLINGUAL 0.4 mg Q5MIN PRN Administration Chest Pain Nitroglycerin 1 patch 07/16/24 09:10 07/17/24 09:15 Nitroglycerin 0.4 Mg/Hr Patch TRANSDERM 1 patch QAM [facility]UEL Administration Ondansetron HCl 4 mg 07/15/24 09:35 07/15/24 12:18 Ondansetron Inj 4 Mg/2 Ml Vial IV PUSH 4 mg Q4H PRN Administration Nausea Pantoprazole Sodium 40 mg 07/16/24 09:00 07/17/24 09:14 Pantoprazole 40 Mg Tablet PO 40 mg QAM [facility]UEL Administration Radiology Results: ITS Impressions Abdomen/Pelvis CT 07/15/24 06:05 Impression: Distended gallbladder with questionable minimal pericholecystic inflammatory change. Consider acute cholecystitis. Consider right upper quadrant ultrasound for further evaluation. Upper Quadrant Ultrasound 07/15/24 08:13 IMPRESSION: 1. Nonspecific trace pericholecystic fluid but with normal-appearing gallbladder with no cholelithiasis or sonographic Smith sign to suggest acute cholecystitis. 2. Likely age-related mild to moderate diffuse right renal cortical atrophy. Chest X-Ray 07/15/24 09:01 IMPRESSION: No acute pulmonary pathology. Chest/Abdomen/Pelvis CT 07/16/24 10:12 IMPRESSION: CHEST: 1. Right pleural effusion. 2. No evidence of pneumonia or pneumothorax seen. ABDOMEN/PELVIS: 1. Distended gallbladder with tiny hyperdensities seen posterior in the gallbladder suggestive of stones. Ultrasound evaluation advised. Surrounding fluid is seen which may indicate cholecystitis. Clinical correlation advised. 2. Residual contrast seen in the urinary bladder. 3. No evidence of appendicitis, diverticulitis or intestinal obstruction. Labs Labs: Laboratory Results - last 24 hr 07/16/24 07/16/24 07/16/24 11:26 13:57 15:55 WBC RBC Hgb Hct MCV MCH MCHC RDW Plt Count MPV Immature Gran % (Auto) Neut % (Auto) Lymph % (Auto) [place] % (Auto) Eos % (Auto) Baso % (Auto) Lymph # (Auto) [place] # (Auto) Eos # (Auto) Baso # (Auto) Abs Immat Gran (auto) Absolute Neuts (auto) Absolute Nucleated RBC Nucleated RBC % PT INR Sodium Potassium Chloride Carbon Dioxide Anion Gap BUN Creatinine Estim Creat Clear Calc Estimated GFR Glucose POC Capillary Glucose 185 H 164 H Calcium Magnesium Total Bilirubin AST ALT Alkaline Phosphatase Troponin I 3.960 H* D Total Protein Albumin 07/16/24 07/17/24 07/17/24 19:56 04:38 07:33 WBC 10.5 H RBC 3.33 L Hgb 10.1 L Hct 30.8 L MCV 92.5 MCH 30.3 MCHC 32.8 RDW 12.7 Plt Count 195 MPV 9.9 Immature Gran % (Auto) 0.6 H Neut % (Auto) 83.7 H Lymph % (Auto) 7.8 L [place] % (Auto) 7.3 Eos % (Auto) 0.2 Baso % (Auto) 0.4 Lymph # (Auto) 0.82 L [place] # (Auto) 0.8 H Eos # (Auto) 0.0 Baso # (Auto) 0.0 Abs Immat Gran (auto) 0.06 H Absolute Neuts (auto) 8.8 H Absolute Nucleated RBC 0.000 Nucleated RBC % 0.0 PT 18.3 H D INR 1.5 Sodium 133 L Potassium 3.8 Chloride 101 Carbon Dioxide 26 Anion Gap 6 BUN 32 H Creatinine 1.67 H Estim Creat Clear Calc 24 Estimated GFR 29 L Glucose 145 H POC Capillary Glucose 284 H 135 H Calcium 8.0 L Magnesium 1.8 Total Bilirubin 2.2 H AST 57 H ALT 89 H Alkaline Phosphatase 108 Troponin I Total Protein 6.0 L Albumin 3.1 L
--- NOTE | 2024-07-17 10:32 | P.PNGS_ITS ---
Progress Note: A&P Assessment and Plan (1) Cholecystitis: Code(s): K81.9 - Cholecystitis, unspecified Status: Acute Assessment and Plan: * INR down to 1.5, will proceed with ultrasound-guided percutaneous cholec ystostomy tube placement in IR. Bile will be cultured. * Continue IV antibiotics * Okay to resume clear liquid diet after procedure (2) Bacteremia: Code(s): R78.81 - Bacteremia Status: Acute Assessment and Plan: * Blood cultures growing Gram-positive cocci in pairs, results pending. Continue IV antibiotics. Repeat blood cultures drawn today. Plan I have discussed the patient's case and plan of care with Dr. Mar. Subjective Subjective Date/Time Seen: 07/17/24 10:32 Patient reports: no new complaints, tolerating liquids well and afebrile (Since 2:00 a.m. 07/16/2024) Interval history: She reportedly did well with liquids yesterday. No nausea or vomiting. She still having get upper back pain that is worse with movement. She denies abdominal or chest pain. Exam 2 Const: General: comfortable and no acute distress GI: Inspection: non-distended GI Palp: Yes Soft to palpation, Yes Tenderness to palpation present (GI) (Mild right upper quadrant tenderness, worse with inspiration), No Guarding due to palpation present (GI), Yes No hepatosplenomegaly present and No Rebound tenderness present Auscultation: normal bowel sounds Objective Data Vital Signs Vital Signs: Vital Signs - 24 hr 07/16/24 11:58 07/16/24 12:15 07/16/24 12:15 Temperature 99.0 F Pulse Rate 98 121 H Respiratory Rate 20 20 Blood Pressure 128/67 Pulse Oximetry 98 98 Oxygen Delivery Nasal Cannula Oxygen Flow Rate 2 07/16/24 14:00 07/16/24 14:37 07/16/24 14:43 Temperature Pulse Rate 128 H 139 H 121 H Respiratory Rate 24 H Blood Pressure 154/111 H 154/111 H Pulse Oximetry 96 Oxygen Delivery Nasal Cannula Oxygen Flow Rate 2 07/16/24 15:34 07/16/24 16:00 07/16/24 16:00 Temperature Pulse Rate 135 H 116 H Respiratory Rate 20 Blood Pressure Pulse Oximetry 96 Oxygen Delivery Nasal Cannula Oxygen Flow Rate 2 07/16/24 16:28 07/16/24 18:00 07/16/24 20:00 Temperature 98.4 F Pulse Rate 116 H 77 Respiratory Rate 20 Blood Pressure 141/77 H Pulse Oximetry 96 96 Oxygen Delivery Nasal Cannula Oxygen Flow Rate 2 07/16/24 20:00 07/16/24 20:10 07/16/24 20:40 Temperature 98.4 F Pulse Rate 77 74 74 Respiratory Rate 18 Blood Pressure 147/63 H Pulse Oximetry 94 Oxygen Delivery Oxygen Flow Rate 07/16/24 22:59 07/16/24 23:27 07/17/24 00:00 Temperature 99.1 F Pulse Rate 75 69 Respiratory Rate 16 Blood Pressure 132/65 Pulse Oximetry 96 96 94 Oxygen Delivery Nasal Cannula Nasal Cannula Oxygen Flow Rate 1 2 07/17/24 00:00 07/17/24 04:00 07/17/24 04:00 Temperature Pulse Rate 75 66 Respiratory Rate Blood Pressure Pulse Oximetry 94 Oxygen Delivery Nasal Cannula Oxygen Flow Rate 2 07/17/24 04:07 07/17/24 08:00 Temperature 98.7 F 98.4 F Pulse Rate 69 66 Respiratory Rate 18 18 Blood Pressure 112/51 L 114/55 L Pulse Oximetry 95 94 Oxygen Delivery Oxygen Flow Rate Intake/Output Intake/Output: Intake & Output 07/14/24 07/15/24 07/16/24 07/17/24 23:59 23:59 23:59 23:59 Intake Total 1724 800 300 Output Total 600 1400 500 Balance 1124 -600 -200 Meds/Results Medications: Active Medications Generic Name Dose Route Start Last Admin Trade Name Freq PRN Reason Stop Dose Admin Albuterol 2 puff 07/15/24 12:39 Albuterol Sulfate (*Sp) Aerosol 1 Puff INHALATION QIDRT PRN shortness of breath or wheezing Amlodipine Besylate 10 mg 07/16/24 09:00 07/17/24 09:14 Amlodipine Besylate 10 Mg Tablet PO 10 mg DAILY SAMUEL Administration Aspirin 81 mg 07/16/24 09:00 07/17/24 09:14 Aspirin 81 Mg Enteric Tablet PO 81 mg DAILY SAMUEL Administration Atorvastatin Calcium 80 mg 07/15/24 18:00 07/16/24 18:09 Atorvastatin 40 Mg Tablet PO 80 mg QPM SAMUEL Administration Dextrose 12.5 gm 07/15/24 12:49 Dextrose 50% 25 Gm/50 Ml Syringe IV PUSH PRN PRN Hypoglycemia Protocol Ferrous Sulfate 325 mg 07/16/24 09:00 07/16/24 10:23 Ferrous Sulfate [address] BY MOUTH Not Given DAILY SAMUEL Glucagon 1 mg 07/15/24 12:49 Glucagon For Inj 1 Mg Vial IM PRN PRN Hypoglycemia Protocol Glucose 15 gm 07/15/24 12:49 Glucose Oral Gel 15 Gm Of Glucse In 37.5 Gm Tube PO PRN PRN Hypoglycemia Protocol Hydralazine HCl 25 mg 07/15/24 13:00 07/17/24 09:14 Hydralazine Hcl 25 Mg Tablet PO 25 mg TID SAMUEL Administration Dextrose 1,000 mls @ 100 mls/hr 07/15/24 12:49 Dextrose 5% 1,000 Ml IVPB PRN PRN Hypoglycemia Protocol Piperacillin/Tazobactam/Dextrose 3.375 gm in 50 mls @ 100 mls/hr 07/15/24 21:00 07/17/24 09:15 Zosyn 3.375 Gm/Ns 50 Ml IVPB 100 mls/hr Q6H SAMUEL Administration Vancomycin HCl 1,250 mg in 250 mls @ 166.667 mls/hr 07/18/24 00:00 Vancomycin 1,250 Mg/Ns 250 Ml IVPB Q36H SAMUEL Insulin Aspart 2 - 5 units 07/15/24 17:00 07/17/24 08:56 Insulin Aspart (*Bkc) 100 Units/Ml SUB-Q Not Given TIDWM [facility] Protocol Insulin Aspart 1 - 2 units 07/15/24 21:00 07/16/24 20:55 Insulin Aspart (*Bkc) 100 Units/Ml SUB-Q Not Given HS [facility] Protocol Latanoprost 1 drop 07/15/24 21:00 07/16/24 20:39 Latanoprost 0.005% Op Soln 2.5 Ml Btl EACH EYE 1 drop HS [facility]UEL Administration Metoprolol Tartrate 50 mg 07/16/24 21:00 07/17/24 09:15 Metoprolol Tartrate 50 Mg Tab PO 50 mg Q12HR [facility]UEL Administration Metoprolol Tartrate 5 mg 07/16/24 14:48 07/16/24 15:34 Metoprolol Tartrate Inj 5 Mg/5 Ml Vial IV PUSH 5 mg Q4H PRN Administration Tachycardia Nitroglycerin 0.4 mg 07/16/24 08:26 07/16/24 08:55 Nitroglycerin Sl 0.4 Mg Tablet SUBLINGUAL 0.4 mg Q5MIN PRN Administration Chest Pain Nitroglycerin 1 patch 07/16/24 09:10 07/17/24 09:15 Nitroglycerin 0.4 Mg/Hr Patch TRANSDERM 1 patch QAM [facility]UEL Administration Ondansetron HCl 4 mg 07/15/24 09:35 07/15/24 12:18 Ondansetron Inj 4 Mg/2 Ml Vial IV PUSH 4 mg Q4H PRN Administration Nausea Pantoprazole Sodium 40 mg 07/16/24 09:00 07/17/24 09:14 Pantoprazole 40 Mg Tablet PO 40 mg QAM [facility] Administration Radiology Results: ITS Impressions Abdomen/Pelvis CT 07/15/24 06:05 Impression: Distended gallbladder with questionable minimal pericholecystic inflammatory change. Consider acute cholecystitis. Consider right upper quadrant ultrasound for further evaluation. Upper Quadrant Ultrasound 07/15/24 08:13 IMPRESSION: 1. Nonspecific trace pericholecystic fluid but with normal-appearing gallbladder with no cholelithiasis or sonographic Smith sign to suggest acute cholecystitis. 2. Likely age-related mild to moderate diffuse right renal cortical atrophy. Chest X-Ray 07/15/24 09:01 IMPRESSION: No acute pulmonary pathology. Chest/Abdomen/Pelvis CT 07/16/24 10:12 IMPRESSION: CHEST: 1. Right pleural effusion. 2. No evidence of pneumonia or pneumothorax seen. ABDOMEN/PELVIS: 1. Distended gallbladder with tiny hyperdensities seen posterior in the gallbladder suggestive of stones. Ultrasound evaluation advised. Surrounding fluid is seen which may indicate cholecystitis. Clinical correlation advised. 2. Residual contrast seen in the urinary bladder. 3. No evidence of appendicitis, diverticulitis or intestinal obstruction. Labs Labs: Laboratory Results - last 24 hr 07/16/24 07/16/24 07/16/24 11:26 13:57 15:55 WBC RBC Hgb Hct MCV MCH MCHC RDW Plt Count MPV Immature Gran % (Auto) Neut % (Auto) Lymph % (Auto) [place] % (Auto) Eos % (Auto) Baso % (Auto) Lymph # (Auto) [place] # (Auto) Eos # (Auto) Baso # (Auto) Abs Immat Gran (auto) Absolute Neuts (auto) Absolute Nucleated RBC Nucleated RBC % PT INR Sodium Potassium Chloride Carbon Dioxide Anion Gap BUN Creatinine Estim Creat Clear Calc Estimated GFR Glucose POC Capillary Glucose 185 H 164 H Calcium Magnesium Total Bilirubin AST ALT Alkaline Phosphatase Troponin I 3.960 H* D Total Protein Albumin 07/16/24 07/17/24 07/17/24 19:56 04:38 07:33 WBC 10.5 H RBC 3.33 L Hgb 10.1 L Hct 30.8 L MCV 92.5 MCH 30.3 MCHC 32.8 RDW 12.7 Plt Count 195 MPV 9.9 Immature Gran % (Auto) 0.6 H Neut % (Auto) 83.7 H Lymph % (Auto) 7.8 L [place] % (Auto) 7.3 Eos % (Auto) 0.2 Baso % (Auto) 0.4 Lymph # (Auto) 0.82 L [place] # (Auto) 0.8 H Eos # (Auto) 0.0 Baso # (Auto) 0.0 Abs Immat Gran (auto) 0.06 H Absolute Neuts (auto) 8.8 H Absolute Nucleated RBC 0.000 Nucleated RBC % 0.0 PT 18.3 H D INR 1.5 Sodium 133 L Potassium 3.8 Chloride 101 Carbon Dioxide 26 Anion Gap 6 BUN 32 H Creatinine 1.67 H Estim Creat Clear Calc 24 Estimated GFR 29 L Glucose 145 H POC Capillary Glucose 284 H 135 H Calcium 8.0 L Magnesium 1.8 Total Bilirubin 2.2 H AST 57 H ALT 89 H Alkaline Phosphatase 108 Troponin I Total Protein 6.0 L Albumin 3.1 L
[2024-07-17 11:43] LABS: Glucose Point of Care 129 mg/dl (65-105)
[2024-07-17 15:48] LABS: Glucose Point of Care 120 mg/dl (65-105)
[2024-07-17] MEDS: ATORVASTATIN 40 MG TABLET 80 MG PO (16:34)
[2024-07-17] MEDS: FERROUS SULFATE 325 MG TABLET DR BY MOUTH (16:35)
[2024-07-17] MEDS: LATANOPROST 0.005% OP SOLN 2.5 ML BTL 1 DROP EACH EYE (20:11)
[2024-07-17] MEDS: INSULIN ASPART (*BKC) 100 UNITS/ML SUB-Q (20:12)
[2024-07-17] MEDS: HEPARIN SOD/D5W 100 UNITS/ML 25,000 UNITS/250 ML BAG 8 UNITS IV CONT (20:13)
[2024-07-17 20:17] LABS: Glucose Point of Care 281 mg/dl (65-105)
[2024-07-18] VITALS (23 sets, daily range): BP systolic 123–147; BP diastolic 54–63; PULSE 58–66; RESP 18–20; TEMP 36.4–37.2; O2SAT 95–98
[2024-07-18 02:53] LABS: INR 1.2; Prothrombin Time 15.3 Seconds (11.1-14.7)
[2024-07-18 02:54] LABS: Partial Thromboplastin Time 43.1 Seconds (22.3-36.8)
[2024-07-18] MEDS: HEPARIN SODIUM 5,000 UNITS/ML VIAL 4000 UNITS IV PUSH (03:04)
[2024-07-18] MEDS: PIPERACILLN/TAZ 3.375GM/NS50ML 3.375 GM/50 ML BAG IVPB ×4 (03:09→20:07)
[2024-07-18 07:50] LABS: Glucose Point of Care 128 mg/dl (65-105)
[2024-07-18] MEDS: ASPIRIN 81 MG ENTERIC TABLET PO (08:14)
[2024-07-18] MEDS: FERROUS SULFATE 325 MG TABLET DR BY MOUTH (08:14)
[2024-07-18] MEDS: hydrALAZINE HCL 25 MG TABLET PO ×3 (08:15→17:12)
[2024-07-18] MEDS: METOPROLOL TARTRATE 50 MG TAB PO ×2 (08:15→20:08)
[2024-07-18] MEDS: PANTOPRAZOLE 40 MG TABLET PO (08:15)
[2024-07-18] MEDS: amLODIPine BESYLATE 10 MG TABLET PO (08:15)
--- NOTE | 2024-07-18 08:42 | PM.IMPN ---
Progress Note: A&P Assessment and Plan (1) Anxiety: Code(s): F41.9 - Anxiety disorder, unspecified Status: Acute (2) Depression: Code(s): F32.9 - Major depressive disorder, single episode, unspecified Status: Acute (3) HTN (hypertension): Qualifiers: Hypertension type: essential hypertension Qualified Code(s): I10 - Essential (primary) hypertension Code(s): I10 - Essential (primary) hypertension Status: Acute (4) CAD (coronary artery disease): Code(s): I25.10 - Atherosclerotic heart disease of [place] coronary artery without angina pectoris Status: Acute (5) Troponin level elevated: Code(s): R79.89 - Other specified abnormal findings of blood chemistry Status: Acute (6) Hx of CABG: Code(s): Z95.1 - Presence of aortocoronary bypass graft Status: Acute (7) Paroxysmal atrial fibrillation: Code(s): I48.0 - Paroxysmal atrial fibrillation Status: Acute (8) Pulmonary embolism: Code(s): I26.99 - Other pulmonary embolism without acute cor pulmonale Status: Acute (9) Diabetes 1.5, managed as type 2: Code(s): E13.9 - Other specified diabetes mellitus without complications Status: Acute (10) Abdominal pain, epigastric: Code(s): R10.13 - Epigastric pain Status: Acute (11) GERD (gastroesophageal reflux disease): Code(s): K21.9 - Gastro-esophageal reflux disease without esophagitis Status: Acute (12) CKD stage 3 due to type 2 diabetes mellitus: Code(s): E11.22 - Type 2 diabetes mellitus with diabetic chronic kidney disease; N18.30 - Chronic kidney disease, stage 3 unspecified Status: Acute Plan This is a 83-year-old female who presents to the ED with nausea vomiting and epigastric pain. She reported pain started about 10:00 p.m. last night. Continue to worsen and hence called EMS. He also reports some nausea vomiting and diarrhea associated with this pain. When EMS arrived patient was saturating 80% on room air and hence was placed on 2 L via nasal cannula. Upon arrival to the ED patient was saturating 93% on room air. Received IV Zofran 1 time dose per EMS. No chest pain reported. EKG showed sinus bradycardia at a rate of 54 beats per minute with no acute ST-T changes. Acute cholecystitis Laboratory evaluation revealed leukocytosis of 12.8 CT abdomen pelvis with contrast revealed distended gallbladder with questionable minimal pericholecystic inflammatory change consider acute cholecystitis. Right upper quadrant ultrasound was obtained which showed nonspecific trace pericholecystic fluid but with normal appearing gallbladder with no cholelithiasis or sonographic Smith sign to suggest acute cholecystitis. General surgery consultation Continue Zosyn perc cholecystostomy per surgeon Non ST elevation PR versus demand ischemia Cardiology consult. heparin gtt when inr <2. History of CAD status post CABG in the past Chest x-ray revealed no acute cardiopulmonary disease Troponin was mildly elevated at 0.107 followed by 0.331. BNP 3050. Cardiology plans cardiac catheterization Bacteremia Streptococcus gallolyticus ssp pasteurianus of blood culture July 15 Possible due to acute cholecystitis Continue cale Clements vancomycin per from cyst Repeat blood culture 07/17 pending Paroxysmal atrial fibrillation start heparin drip. Reversal for Coumadin for potential intervention. Heparin drip when INR goes below 2 Dehydration, hypo magnesemia BUN of 28 magnesium 0.9 otherwise unremarkable. Patient received IV fluid bolus and magnesium supplementation type 2 diabetes Patient is on sliding scale a.c. q.h.s. Glucose is well controlled Hypertension On hydralazine 25 mg t.i.d. p.o. Code status full code Subjective Date/time seen: 07/18/24 08:42 Interval history: I saw examined patient today, patient feels better today, patient underwent cholecystostomy without complication yesterday, denies abdomen pain chest pain, abdomen pain, nausea vomiting. Exam Narrative: GENERAL: Pleasant, in no acute distress. Well-nourished. - EYES: EOMI. Anicteric. - HENT: Moist mucous membranes. - LUNGS: Clear to auscultation bilaterally, no wheezing, rhonchi, or rales. - CARDIOVASCULAR: Regular rate and rhythm. No murmur. No JVD. - ABDOMEN: Soft, epigastric tender and non-distended. No palpable masses. Status post cholecystotomy - EXTREMITIES: No edema. Peripheral pulses 2+. Non-tender. - NEUROLOGIC: No focal neurological deficits. CN II-XII grossly intact. - PSYCHIATRIC: Awake, Alert and oriented x 3. Appropriate mood and affect. - SKIN: No rashes or lesions. Warm. - LYMPH: No cervical lymphadenopathy. Objective Data Vital Signs Vital Signs: Vital Signs - 24 hr 04/23/25 09:10 07/17/24 10:00 07/17/24 11:47 Temperature 97.9 F Pulse Rate 60 61 Respiratory Rate 20 Blood Pressure 121/6 L Pulse Oximetry 95 96 Oxygen Delivery Nasal Cannula Oxygen Flow Rate 2 07/17/24 12:00 07/17/24 12:00 07/17/24 14:00 Temperature Pulse Rate 61 63 Respiratory Rate Blood Pressure Pulse Oximetry 94 Oxygen Delivery Nasal Cannula Oxygen Flow Rate 2 07/17/24 15:53 07/17/24 16:00 07/17/24 16:00 Temperature 98.1 F Pulse Rate 67 68 Respiratory Rate 18 Blood Pressure 130/64 Pulse Oximetry 100 94 Oxygen Delivery Nasal Cannula Oxygen Flow Rate 2 07/17/24 18:00 07/17/24 19:47 07/17/24 20:00 Temperature 98.0 F Pulse Rate 62 68 Respiratory Rate 18 Blood Pressure 136/44 L Pulse Oximetry 94 94 Oxygen Delivery Nasal Cannula Oxygen Flow Rate 2 07/17/24 20:00 07/17/24 20:12 07/17/24 23:04 Temperature Pulse Rate 68 68 67 Respiratory Rate Blood Pressure Pulse Oximetry 95 Oxygen Delivery Nasal Cannula Oxygen Flow Rate 2 07/17/24 23:39 07/17/24 23:47 07/18/24 00:00 Temperature 98.3 F Pulse Rate 70 66 Respiratory Rate 18 Blood Pressure 127/54 L Pulse Oximetry 95 96 Oxygen Delivery Nasal Cannula Oxygen Flow Rate 2 07/18/24 04:00 07/18/24 04:00 07/18/24 04:16 Temperature 98.9 F Pulse Rate 64 65 Respiratory Rate 18 Blood Pressure 143/62 H Pulse Oximetry 95 98 Oxygen Delivery Nasal Cannula Oxygen Flow Rate 2 07/18/24 05:57 07/18/24 08:04 07/18/24 08:15 Temperature 98.6 F Pulse Rate 65 64 64 Respiratory Rate 20 Blood Pressure 136/58 L Pulse Oximetry 97 Oxygen Delivery Oxygen Flow Rate Intake/Output Intake/Output: Intake & Output 07/15/24 07/16/24 07/17/24 07/18/24 23:59 23:59 23:59 23:59 Intake Total 8964 955 6027 624.8 Output Total 600 1400 950 590 Balance 1124 -600 80 34.8 Meds/Results Medications: Active Medications Generic Name Dose Route Start Last Admin Trade Name Freq PRN Reason Stop Dose Admin Albuterol 2 puff 07/15/24 12:39 Albuterol Sulfate (*Sp) Aerosol 1 Puff INHALATION QIDRT PRN shortness of breath or wheezing Amlodipine Besylate 10 mg 07/16/24 09:00 07/18/24 08:15 Amlodipine Besylate 10 Mg Tablet PO 10 mg DAILY SAMUEL Administration Aspirin 81 mg 07/16/24 09:00 07/18/24 08:14 Aspirin 81 Mg Enteric Tablet PO 81 mg DAILY SAMUEL Administration Atorvastatin Calcium 80 mg 07/15/24 18:00 07/17/24 16:34 Atorvastatin 40 Mg Tablet PO 80 mg QPM SAMUEL Administration Dextrose 12.5 gm 07/15/24 12:49 Dextrose 50% 25 Gm/50 Ml Syringe IV PUSH PRN PRN Hypoglycemia Protocol Ferrous Sulfate 325 mg 07/16/24 09:00 07/18/24 08:14 Ferrous Sulfate [address] BY MOUTH 325 mg DAILY SAMUEL Administration Glucagon 1 mg 07/15/24 12:49 Glucagon For Inj 1 Mg Vial IM PRN PRN Hypoglycemia Protocol Glucose 15 gm 07/15/24 12:49 Glucose Oral Gel 15 Gm Of Glucse In 37.5 Gm Tube PO PRN PRN Hypoglycemia Protocol Heparin Sodium (Porcine) 4,000 units 07/17/24 18:51 07/18/24 03:04 Heparin Sodium 5,000 Units/Ml Vial IV PUSH 4,000 units PRN PRN Administration aPTT less than 55 seconds Heparin Sodium (Porcine) 2,500 units 07/17/24 18:51 Heparin Sodium 5,000 Units/Ml Vial IV PUSH PRN PRN aPTT 55 - 70 seconds Hydralazine HCl 25 mg 07/15/24 13:00 07/18/24 08:15 Hydralazine Hcl 25 Mg Tablet PO 25 mg TID SAMUEL Administration Dextrose 1,000 mls @ 100 mls/hr 07/15/24 12:49 Dextrose 5% 1,000 Ml IVPB PRN PRN Hypoglycemia Protocol Piperacillin/Tazobactam/Dextrose 3.375 gm in 50 mls @ 100 mls/hr 07/15/24 21:00 07/18/24 08:14 Zosyn 3.375 Gm/Ns 50 Ml IVPB 100 mls/hr Q6H SAMUEL Administration Heparin Sodium/Dextrose 25,000 units in 250 mls @ 11 mls/hr 07/17/24 18:55 07/18/24 03:04 Heparin Sodium/D5w 100 Units/Ml IV CONT 1,100 units/hr .[id number] SAMUEL 11 mls/hr Titration Protocol 1,100 UNITS/HR Insulin Aspart 2 - 5 units 07/15/24 17:00 07/18/24 08:15 Insulin Aspart (*Bkc) 100 Units/Ml SUB-Q Not Given TIDWM [facility] Protocol Insulin Aspart 1 - 2 units 07/15/24 21:00 07/17/24 20:12 Insulin Aspart (*Bkc) 100 Units/Ml SUB-Q 1 units HS [facility] Administration Protocol Latanoprost 1 drop 07/15/24 21:00 07/17/24 20:11 Latanoprost 0.005% Op Soln 2.5 Ml Btl EACH EYE 1 drop HS [facility] Administration Metoprolol Tartrate 50 mg 07/16/24 21:00 07/18/24 08:15 Metoprolol Tartrate 50 Mg Tab PO 50 mg Q12HR [facility]UEL Administration Metoprolol Tartrate 5 mg 07/16/24 14:48 07/16/24 15:34 Metoprolol Tartrate Inj 5 Mg/5 Ml Vial IV PUSH 5 mg Q4H PRN Administration Tachycardia Nitroglycerin 0.4 mg 07/16/24 08:26 07/16/24 08:55 Nitroglycerin Sl 0.4 Mg Tablet SUBLINGUAL 0.4 mg Q5MIN PRN Administration Chest Pain Nitroglycerin 1 patch 07/16/24 09:10 07/17/24 09:15 Nitroglycerin 0.4 Mg/Hr Patch [facility] [place] Ondansetron HCl 4 mg 07/15/24 09:35 07/15/24 12:18 Ondansetron Inj 4 Mg/2 Ml Vial IV PUSH 4 mg Q4H PRN Administration Nausea Pantoprazole Sodium 40 mg 07/16/24 09:00 07/18/24 08:15 Pantoprazole 40 Mg Tablet PO 40 mg QAM [facility] Administration Radiology Results: ITS Impressions Abdomen/Pelvis CT 07/15/24 06:05 Impression: Distended gallbladder with questionable minimal pericholecystic inflammatory change. Consider acute cholecystitis. Consider right upper quadrant ultrasound for further evaluation. Upper Quadrant Ultrasound 07/15/24 08:13 IMPRESSION: 1. Nonspecific trace pericholecystic fluid but with normal-appearing gallbladder with no cholelithiasis or sonographic Smith sign to suggest acute cholecystitis. 2. Likely age-related mild to moderate diffuse right renal cortical atrophy. Chest X-Ray 07/15/24 09:01 IMPRESSION: No acute pulmonary pathology. Chest/Abdomen/Pelvis CT 07/16/24 10:12 IMPRESSION: CHEST: 1. Right pleural effusion. 2. No evidence of pneumonia or pneumothorax seen. ABDOMEN/PELVIS: 1. Distended gallbladder with tiny hyperdensities seen posterior in the gallbladder suggestive of stones. Ultrasound evaluation advised. Surrounding fluid is seen which may indicate cholecystitis. Clinical correlation advised. 2. Residual contrast seen in the urinary bladder. 3. No evidence of appendicitis, diverticulitis or intestinal obstruction. Cholecystostomy 07/17/24 15:27 IMPRESSION: 1. Successful ultrasound-guided cholecystostomy tube placement. 2. 20 mL bile was sent for aerobic, anaerobic, and fungal cultures. 3. The catheter will be managed by Dr. Mar. A catheter cholangiogram may be performed not less than 48 hours after tube placement if clinically indicated to assess cystic duct patency. If cholecystectomy is not eventually performed and the infectious episode has resolved, the tube may be removed over a guidewire, preferably not less than 3 weeks after placement to allow time for a mature catheter tract to form to prevent bile leakage and peritonitis. Labs Labs: Laboratory Results - last 24 hr 07/17/24 07/17/24 07/17/24 07:33 11:41 15:19 PT INR APTT POC Capillary Glucose 135 H 129 H 120 H 07/17/24 07/18/24 07/18/24 19:50 02:26 02:26 PT 15.3 H INR 1.2 APTT 43.1 H Cancelled POC Capillary Glucose 281 H 07/18/24 07:41 PT INR APTT POC Capillary Glucose 128 H
[2024-07-18 09:15] LABS: Partial Thromboplastin Time 103.9 Seconds (22.3-36.8)
--- NOTE | 2024-07-18 10:38 | PM.PNCARD ---
Progress Note: A&P Assessment and Plan (1) NSTEMI (non-ST elevated myocardial infarction): Code(s): I21.4 - Non-ST elevation (NSTEMI) myocardial infarction Status: Acute (2) Paroxysmal atrial fibrillation: Code(s): I48.0 - Paroxysmal atrial fibrillation Status: Acute (3) Mild aortic stenosis: Code(s): I35.0 - Nonrheumatic aortic (valve) stenosis Status: Acute Plan 83-year-old woman with CAD status post CABG (CHRISTIAN to LAD, SVG sequential to OM1 and 2, and SVG to diagonal), paroxysmal atrial fibrillation, mild aortic stenosis, and history of DVT/PE presents with nausea, vomiting, diarrhea, and upper abdominal pain Non ST-elevation NM -left heart catheterization recommended to define coronary anatomy once bacteremia resolved; keep NPO past midnight for re-evaluation tomorrow however Monday is more likely -continue aspirin 81 mg p.o. daily and Lopressor 50 mg p.o. b.i.d. -will discontinue her nitro patch Paroxysmal atrial fibrillation -continue holding warfarin -continue heparin and Lopressor 50 mg p.o. b.i.d. Mild aortic stenosis -surveillance echocardiogram outpatient Hyperlipidemia -continue atorvastatin 80 mg every evening Subjective Date/time seen: 07/18/24 10:38 Interval history: No chest pain or shortness of breath. Nausea is resolved. No diarrhea. Review of Systems Cardiovascular: Cardiovascular: Reports as per HPI Respiratory: Respiratory: Reports as per HPI Exam Const: General: comfortable HENMT: Mouth: Yes moist mucous membranes Eyes: EOM: EOMs intact bilaterally Neck: Neck: no JVD Resp: Effort & Inspection: normal respiratory effort Auscultation: clear to auscultation bilaterally Cardio: Rate: regular rate Rhythm: regular rhythm Neuro: Speech: normal speech Extrem: General: no pedal edema Objective Data Vital Signs Vital Signs: Vital Signs - 24 hr 07/17/24 11:47 07/17/24 12:00 07/17/24 12:00 Temperature 36.6 C Pulse Rate 61 61 Respiratory Rate 20 Blood Pressure 121/6 L Pulse Oximetry 96 94 Oxygen Delivery Nasal Cannula Oxygen Flow Rate 2 07/17/24 14:00 07/17/24 15:53 07/17/24 16:00 Temperature 36.7 C Pulse Rate 63 67 Respiratory Rate 18 Blood Pressure 130/64 Pulse Oximetry 100 94 Oxygen Delivery Nasal Cannula Oxygen Flow Rate 2 07/17/24 16:00 07/17/24 18:00 07/17/24 19:47 Temperature 36.7 C Pulse Rate 68 62 68 Respiratory Rate 18 Blood Pressure 136/44 L Pulse Oximetry 94 Oxygen Delivery Oxygen Flow Rate 07/17/24 20:00 07/17/24 20:00 07/17/24 20:12 Temperature Pulse Rate 68 68 Respiratory Rate Blood Pressure Pulse Oximetry 94 Oxygen Delivery Nasal Cannula Oxygen Flow Rate 2 07/17/24 23:04 07/17/24 23:39 07/17/24 23:47 Temperature 36.8 C Pulse Rate 67 70 Respiratory Rate 18 Blood Pressure 127/54 L Pulse Oximetry 95 95 96 Oxygen Delivery Nasal Cannula Nasal Cannula Oxygen Flow Rate 2 2 07/18/24 00:00 07/18/24 04:00 07/18/24 04:00 Temperature Pulse Rate 66 64 Respiratory Rate Blood Pressure Pulse Oximetry 95 Oxygen Delivery Nasal Cannula Oxygen Flow Rate 2 07/18/24 04:16 07/18/24 05:57 07/18/24 08:04 Temperature 37.2 C 37.0 C Pulse Rate 65 65 64 Respiratory Rate 18 20 Blood Pressure 143/62 H 136/58 L Pulse Oximetry 98 97 Oxygen Delivery Oxygen Flow Rate 07/18/24 08:15 Temperature Pulse Rate 64 Respiratory Rate Blood Pressure Pulse Oximetry Oxygen Delivery Oxygen Flow Rate Intake/Output Intake/Output: Intake & Output 07/15/24 07/16/24 07/17/24 07/18/24 23:59 23:59 23:59 23:59 Intake Total 4708 307 6678 984.8 Output Total 600 1400 950 590 Balance 1124 -600 80 394.8 Meds/Results Medications: Active Medications Generic Name Dose Route Start Last Admin Trade Name Freq PRN Reason Stop Dose Admin Albuterol 2 puff 07/15/24 12:39 Albuterol Sulfate (*Sp) Aerosol 1 Puff INHALATION QIDRT PRN shortness of breath or wheezing Amlodipine Besylate 10 mg 07/16/24 09:00 07/18/24 08:15 Amlodipine Besylate 10 Mg Tablet PO 10 mg DAILY SAMUEL Administration Aspirin 81 mg 07/16/24 09:00 07/18/24 08:14 Aspirin 81 Mg Enteric Tablet PO 81 mg DAILY SAMUEL Administration Atorvastatin Calcium 80 mg 07/15/24 18:00 07/17/24 16:34 Atorvastatin 40 Mg Tablet PO 80 mg QPM SAMUEL Administration Dextrose 12.5 gm 07/15/24 12:49 Dextrose 50% 25 Gm/50 Ml Syringe IV PUSH PRN PRN Hypoglycemia Protocol Ferrous Sulfate 325 mg 07/16/24 09:00 07/18/24 08:14 Ferrous Sulfate [address] BY MOUTH 325 mg DAILY SAMUEL Administration Glucagon 1 mg 07/15/24 12:49 Glucagon For Inj 1 Mg Vial IM PRN PRN Hypoglycemia Protocol Glucose 15 gm 07/15/24 12:49 Glucose Oral Gel 15 Gm Of Glucse In 37.5 Gm Tube PO PRN PRN Hypoglycemia Protocol Heparin Sodium (Porcine) 4,000 units 07/17/24 18:51 07/18/24 03:04 Heparin Sodium 5,000 Units/Ml Vial IV PUSH 4,000 units PRN PRN Administration aPTT less than 55 seconds Heparin Sodium (Porcine) 2,500 units 07/17/24 18:51 Heparin Sodium 5,000 Units/Ml Vial IV PUSH PRN PRN aPTT 55 - 70 seconds Hydralazine HCl 25 mg 07/15/24 13:00 07/18/24 08:15 Hydralazine Hcl 25 Mg Tablet PO 25 mg TID SAMUEL Administration Dextrose 1,000 mls @ 100 mls/hr 07/15/24 12:49 Dextrose 5% 1,000 Ml IVPB PRN PRN Hypoglycemia Protocol Piperacillin/Tazobactam/Dextrose 3.375 gm in 50 mls @ 100 mls/hr 07/15/24 21:00 07/18/24 08:14 Zosyn 3.375 Gm/Ns 50 Ml IVPB 100 mls/hr Q6H SAMUEL Administration Heparin Sodium/Dextrose 25,000 units in 250 mls @ 11 mls/hr 07/17/24 18:55 07/18/24 03:04 Heparin Sodium/D5w 100 Units/Ml IV CONT 1,100 units/hr .[id number] SAMUEL 11 mls/hr Titration Protocol 1,100 UNITS/HR Insulin Aspart 2 - 5 units 07/15/24 17:00 07/18/24 08:15 Insulin Aspart (*Bkc) 100 Units/Ml SUB-Q Not Given TIDWM [facility] Protocol Insulin Aspart 1 - 2 units 07/15/24 21:00 07/17/24 20:12 Insulin Aspart (*Bkc) 100 Units/Ml SUB-Q 1 units HS [facility] Administration Protocol Latanoprost 1 drop 07/15/24 21:00 07/17/24 20:11 Latanoprost 0.005% Op Soln 2.5 Ml Btl EACH EYE 1 drop HS SAMUEL Administration Metoprolol Tartrate 50 mg 07/16/24 21:00 07/18/24 08:15 Metoprolol Tartrate 50 Mg Tab PO 50 mg Q12HR SAMUEL Administration Metoprolol Tartrate 5 mg 07/16/24 14:48 07/16/24 15:34 Metoprolol Tartrate Inj 5 Mg/5 Ml Vial IV PUSH 5 mg Q4H PRN Administration Tachycardia Nitroglycerin 0.4 mg 07/16/24 08:26 07/16/24 08:55 Nitroglycerin Sl 0.4 Mg Tablet SUBLINGUAL 0.4 mg Q5MIN PRN Administration Chest Pain Ondansetron HCl 4 mg 07/15/24 09:35 07/15/24 12:18 Ondansetron Inj 4 Mg/2 Ml Vial IV PUSH 4 mg Q4H PRN Administration Nausea Pantoprazole Sodium 40 mg 07/16/24 09:00 07/18/24 08:15 Pantoprazole 40 Mg Tablet PO 40 mg QAM SAMUEL Administration Radiology Results: ITS Impressions Abdomen/Pelvis CT 07/15/24 06:05 Impression: Distended gallbladder with questionable minimal pericholecystic inflammatory change. Consider acute cholecystitis. Consider right upper quadrant ultrasound for further evaluation. Upper Quadrant Ultrasound 07/15/24 08:13 IMPRESSION: 1. Nonspecific trace pericholecystic fluid but with normal-appearing gallbladder with no cholelithiasis or sonographic Smith sign to suggest acute cholecystitis. 2. Likely age-related mild to moderate diffuse right renal cortical atrophy. Chest X-Ray 07/15/24 09:01 IMPRESSION: No acute pulmonary pathology. Chest/Abdomen/Pelvis CT 07/16/24 10:12 IMPRESSION: CHEST: 1. Right pleural effusion. 2. No evidence of pneumonia or pneumothorax seen. ABDOMEN/PELVIS: 1. Distended gallbladder with tiny hyperdensities seen posterior in the gallbladder suggestive of stones. Ultrasound evaluation advised. Surrounding fluid is seen which may indicate cholecystitis. Clinical correlation advised. 2. Residual contrast seen in the urinary bladder. 3. No evidence of appendicitis, diverticulitis or intestinal obstruction. Cholecystostomy 07/17/24 15:27 IMPRESSION: 1. Successful ultrasound-guided cholecystostomy tube placement. 2. 20 mL bile was sent for aerobic, anaerobic, and fungal cultures. 3. The catheter will be managed by Dr. Mar. A catheter cholangiogram may be performed not less than 48 hours after tube placement if clinically indicated to assess cystic duct patency. If cholecystectomy is not eventually performed and the infectious episode has resolved, the tube may be removed over a guidewire, preferably not less than 3 weeks after placement to allow time for a mature catheter tract to form to prevent bile leakage and peritonitis. Labs Labs: Laboratory Results - last 24 hr 07/17/24 07/17/24 07/17/24 11:41 15:19 19:50 PT INR APTT POC Capillary Glucose 129 H 120 H 281 H 07/18/24 07/18/24 07/18/24 02:26 02:26 07:41 PT 15.3 H INR 1.2 APTT 43.1 H Cancelled POC Capillary Glucose 128 H 07/18/24 08:50 PT INR APTT 103.9 H POC Capillary Glucose
--- NOTE | 2024-07-18 11:28 | P.PNGS_ITS ---
Progress Note: A&P Assessment and Plan (1) Cholecystitis: Code(s): K81.9 - Cholecystitis, unspecified Status: Acute Assessment and Plan: * S/p cholecystostomy tube placement, abdominal exam benign, labs pending today * Continue IV antibiotics. Bile cultures pending * Advance to low fat diet (2) Bacteremia: Code(s): R78.81 - Bacteremia Status: Acute Assessment and Plan: * Blood cultures 07/15 growing streptococcus gallolyticus ssp pasteurianus. Repeat blood cx pending. Bile cx pending. * Continue IV antibiotics Plan I have discussed the patient's case and plan of care with Dr. Mar. Subjective Subjective Date/Time Seen: 07/18/24 11:28 Interval history: Patient doing well. She is tolerating clear liquids. She reports her mid back pain has completely resolved since the cholecystostomy tube was placed. She has some slight discomfort where the percutaneous cholecystostomy tube is located, but very mild. No nausea or vomiting. She is actually hungry and eager to advance her diet. Exam Const: General: comfortable and no acute distress GI: Inspection: non-distended GI Palp: Yes Soft to palpation, No Tenderness to palpation present (GI), No Guarding due to palpation present (GI) and No Rebound tenderness present Auscultation: normal bowel sounds Other: Cholecystostomy tube with slightly bloody-tinged cloudy yellow output Objective Data Vital Signs Vital Signs: Vital Signs - 24 hr 07/17/24 11:47 07/17/24 12:00 07/17/24 12:00 Temperature 97.9 F Pulse Rate 61 61 Respiratory Rate 20 Blood Pressure 121/6 L Pulse Oximetry 96 94 Oxygen Delivery Nasal Cannula Oxygen Flow Rate 2 07/17/24 14:00 07/17/24 15:53 07/17/24 16:00 Temperature 98.1 F Pulse Rate 63 67 Respiratory Rate 18 Blood Pressure 130/64 Pulse Oximetry 100 94 Oxygen Delivery Nasal Cannula Oxygen Flow Rate 2 07/17/24 16:00 07/17/24 18:00 07/17/24 19:47 Temperature 98.0 F Pulse Rate 68 62 68 Respiratory Rate 18 Blood Pressure 136/44 L Pulse Oximetry 94 Oxygen Delivery Oxygen Flow Rate 07/17/24 20:00 07/17/24 20:00 07/17/24 20:12 Temperature Pulse Rate 68 68 Respiratory Rate Blood Pressure Pulse Oximetry 94 Oxygen Delivery Nasal Cannula Oxygen Flow Rate 2 07/17/24 23:04 07/17/24 23:39 07/17/24 23:47 Temperature 98.3 F Pulse Rate 67 70 Respiratory Rate 18 Blood Pressure 127/54 L Pulse Oximetry 95 95 96 Oxygen Delivery Nasal Cannula Nasal Cannula Oxygen Flow Rate 2 2 07/18/24 00:00 07/18/24 04:00 07/18/24 04:00 Temperature Pulse Rate 66 64 Respiratory Rate Blood Pressure Pulse Oximetry 95 Oxygen Delivery Nasal Cannula Oxygen Flow Rate 2 07/18/24 04:16 07/18/24 05:57 07/18/24 08:04 Temperature 98.9 F 98.6 F Pulse Rate 65 65 64 Respiratory Rate 18 20 Blood Pressure 143/62 H 136/58 L Pulse Oximetry 98 97 Oxygen Delivery Oxygen Flow Rate 07/18/24 08:15 Temperature Pulse Rate 64 Respiratory Rate Blood Pressure Pulse Oximetry Oxygen Delivery Oxygen Flow Rate Intake/Output Intake/Output: Intake & Output 07/15/24 07/16/24 07/17/24 07/18/24 23:59 23:59 23:59 23:59 Intake Total 9561 032 9994 984.8 Output Total 600 1400 950 590 Balance 1124 -600 80 394.8 Meds/Results Medications: Active Medications Generic Name Dose Route Start Last Admin Trade Name Freq PRN Reason Stop Dose Admin Albuterol 2 puff 07/15/24 12:39 Albuterol Sulfate (*Sp) Aerosol 1 Puff INHALATION QIDRT PRN shortness of breath or wheezing Amlodipine Besylate 10 mg 07/16/24 09:00 07/18/24 08:15 Amlodipine Besylate 10 Mg Tablet PO 10 mg DAILY SAMUEL Administration Aspirin 81 mg 07/16/24 09:00 07/18/24 08:14 Aspirin 81 Mg Enteric Tablet PO 81 mg DAILY SAMUEL Administration Atorvastatin Calcium 80 mg 07/15/24 18:00 07/17/24 16:34 Atorvastatin 40 Mg Tablet PO 80 mg QPM SAMUEL Administration Dextrose 12.5 gm 07/15/24 12:49 Dextrose 50% 25 Gm/50 Ml Syringe IV PUSH PRN PRN Hypoglycemia Protocol Ferrous Sulfate 325 mg 07/16/24 09:00 07/18/24 08:14 Ferrous Sulfate [address] BY MOUTH 325 mg DAILY SAMUEL Administration Glucagon 1 mg 07/15/24 12:49 Glucagon For Inj 1 Mg Vial IM PRN PRN Hypoglycemia Protocol Glucose 15 gm 07/15/24 12:49 Glucose Oral Gel 15 Gm Of Glucse In 37.5 Gm Tube PO PRN PRN Hypoglycemia Protocol Heparin Sodium (Porcine) 4,000 units 07/17/24 18:51 07/18/24 03:04 Heparin Sodium 5,000 Units/Ml Vial IV PUSH 4,000 units PRN PRN Administration aPTT less than 55 seconds Heparin Sodium (Porcine) 2,500 units 07/17/24 18:51 Heparin Sodium 5,000 Units/Ml Vial IV PUSH PRN PRN aPTT 55 - 70 seconds Hydralazine HCl 25 mg 07/15/24 13:00 07/18/24 08:15 Hydralazine Hcl 25 Mg Tablet PO 25 mg TID SAMUEL Administration Dextrose 1,000 mls @ 100 mls/hr 07/15/24 12:49 Dextrose 5% 1,000 Ml IVPB PRN PRN Hypoglycemia Protocol Piperacillin/Tazobactam/Dextrose 3.375 gm in 50 mls @ 100 mls/hr 07/15/24 21:00 07/18/24 08:14 Zosyn 3.375 Gm/Ns 50 Ml IVPB 100 mls/hr Q6H SAMUEL Administration Heparin Sodium/Dextrose 25,000 units in 250 mls @ 11 mls/hr 07/17/24 18:55 07/18/24 03:04 Heparin Sodium/D5w 100 Units/Ml IV CONT 1,100 units/hr .[id number] SAMUEL 11 mls/hr Titration Protocol 1,100 UNITS/HR Insulin Aspart 2 - 5 units 07/15/24 17:00 07/18/24 08:15 Insulin Aspart (*Bkc) 100 Units/Ml SUB-Q Not Given TIDWM [facility] Protocol Insulin Aspart 1 - 2 units 07/15/24 21:00 07/17/24 20:12 Insulin Aspart (*Bkc) 100 Units/Ml SUB-Q 1 units HS SAMUEL Administration Protocol Latanoprost 1 drop 07/15/24 21:00 07/17/24 20:11 Latanoprost 0.005% Op Soln 2.5 Ml Btl EACH EYE 1 drop HS SAMUEL Administration Metoprolol Tartrate 50 mg 07/16/24 21:00 07/18/24 08:15 Metoprolol Tartrate 50 Mg Tab PO 50 mg Q12HR SAMUEL Administration Metoprolol Tartrate 5 mg 07/16/24 14:48 07/16/24 15:34 Metoprolol Tartrate Inj 5 Mg/5 Ml Vial IV PUSH 5 mg Q4H PRN Administration Tachycardia Nitroglycerin 0.4 mg 07/16/24 08:26 07/16/24 08:55 Nitroglycerin Sl 0.4 Mg Tablet SUBLINGUAL 0.4 mg Q5MIN PRN Administration Chest Pain Ondansetron HCl 4 mg 07/15/24 09:35 07/15/24 12:18 Ondansetron Inj 4 Mg/2 Ml Vial IV PUSH 4 mg Q4H PRN Administration Nausea Pantoprazole Sodium 40 mg 07/16/24 09:00 07/18/24 08:15 Pantoprazole 40 Mg Tablet PO 40 mg QAM SAMUEL Administration Radiology Results: ITS Impressions Abdomen/Pelvis CT 07/15/24 06:05 Impression: Distended gallbladder with questionable minimal pericholecystic inflammatory change. Consider acute cholecystitis. Consider right upper quadrant ultrasound for further evaluation. Upper Quadrant Ultrasound 07/15/24 08:13 IMPRESSION: 1. Nonspecific trace pericholecystic fluid but with normal-appearing gallbladder with no cholelithiasis or sonographic Smith sign to suggest acute cholecystitis. 2. Likely age-related mild to moderate diffuse right renal cortical atrophy. Chest X-Ray 07/15/24 09:01 IMPRESSION: No acute pulmonary pathology. Chest/Abdomen/Pelvis CT 07/16/24 10:12 IMPRESSION: CHEST: 1. Right pleural effusion. 2. No evidence of pneumonia or pneumothorax seen. ABDOMEN/PELVIS: 1. Distended gallbladder with tiny hyperdensities seen posterior in the gallbladder suggestive of stones. Ultrasound evaluation advised. Surrounding fluid is seen which may indicate cholecystitis. Clinical correlation advised. 2. Residual contrast seen in the urinary bladder. 3. No evidence of appendicitis, diverticulitis or intestinal obstruction. Cholecystostomy 07/17/24 15:27 IMPRESSION: 1. Successful ultrasound-guided cholecystostomy tube placement. 2. 20 mL bile was sent for aerobic, anaerobic, and fungal cultures. 3. The catheter will be managed by Dr. Mar. A catheter cholangiogram may be pe rformed not less than 48 hours after tube placement if clinically indicated to assess cystic duct patency. If cholecystectomy is not eventually performed and the infectious episode has resolved, the tube may be removed over a guidewire, preferably not less than 3 weeks after placement to allow time for a mature catheter tract to form to prevent bile leakage and peritonitis. Labs Labs: Laboratory Results - last 24 hr 07/17/24 07/17/24 07/17/24 11:41 15:19 19:50 PT INR APTT POC Capillary Glucose 129 H 120 H 281 H 07/18/24 07/18/24 07/18/24 02:26 02:26 07:41 PT 15.3 H INR 1.2 APTT 43.1 H Cancelled POC Capillary Glucose 128 H 07/18/24 08:50 PT INR APTT 103.9 H POC Capillary Glucose
[2024-07-18 11:34] LABS: Hematocrit 30.3 % (37.0-47.0); Hemoglobin 9.6 g/dL (12.0-15.0); Mean Corpuscular HGB Conc 31.7 g/dl (32-36); Mean Corpuscular Hemoglobin 30.3 pg (26-34); Mean Corpuscular Volume 95.6 fl (80-100); Mean Platelet Volume 10.5 fl (7.4-10.4); Platelet Count Result 229 k/mm3 (150-375); Red Blood Count 3.17 M/mm3 (4.2-5.4); Red Cell Distribution Width 12.7 % (11.5-14.5); White Blood Count 7.2 K/mm3 (4.5-10.0)
[2024-07-18 11:36] LABS: Glucose Point of Care 273 mg/dl (65-105)
[2024-07-18 11:41] LABS: Anion Gap 10 mmol/L (4-12); Blood Urea Nitrogen 36 mg/dL (7-17); Carbon Dioxide 22 mmol/L (22-30); Chloride 100 mmol/L (98-107); Estimated CRCL calculation 25 ml/min; Estimated Glomerular Filt Rate 31; Glucose 182 mg/dL (65-110); Potassium 3.5 mmol/L (3.4-5.0); Sodium 132 mmol/L (137-145)
[2024-07-18] MEDS: INSULIN ASPART (*BKC) 100 UNITS/ML SUB-Q ×2 (12:18→17:13)
[2024-07-18 15:34] LABS: Glucose Point of Care 204 mg/dl (65-105)
[2024-07-18 15:48] LABS: Partial Thromboplastin Time 53.6 Seconds (22.3-36.8)
[2024-07-18] MEDS: ATORVASTATIN 40 MG TABLET 80 MG PO (17:12)
[2024-07-18] MEDS: HEPARIN SODIUM 5,000 UNITS/ML VIAL 2500 UNITS IV PUSH (17:12)
[2024-07-18 20:06] LABS: Glucose Point of Care 193 mg/dl (65-105)
[2024-07-18] MEDS: HEPARIN SOD/D5W 100 UNITS/ML 25,000 UNITS/250 ML BAG 14 UNITS IV CONT (20:07)
[2024-07-18] MEDS: LATANOPROST 0.005% OP SOLN 2.5 ML BTL 1 DROP EACH EYE (20:08)
[2024-07-19] VITALS (25 sets, daily range): BP systolic 127–148; BP diastolic 52–65; PULSE 54–68; RESP 12–21; TEMP 36.3–37.2; O2SAT 92–100
[2024-07-19 00:12] LABS: Partial Thromboplastin Time 140.9 Seconds (22.3-36.8)
[2024-07-19] MEDS: MELATONIN 3 MG TABLET PO ×2 (01:28→22:20)
[2024-07-19] MEDS: PIPERACILLN/TAZ 3.375GM/NS50ML 3.375 GM/50 ML BAG IVPB ×4 (02:57→22:20)
[2024-07-19 07:55] LABS: Glucose Point of Care 128 mg/dl (65-105)
[2024-07-19 08:09] LABS: INR 1.2; Prothrombin Time 15.5 Seconds (11.1-14.7)
--- NOTE | 2024-07-19 09:08 | PM.PNGS ---
Progress Note: A&P Assessment and Plan (1) Cholecystitis: Code(s): K81.9 - Cholecystitis, unspecified Status: Acute Assessment and Plan: exam benign, tati diet, cont drain/abx Subjective Subjective Date/Time Seen: 07/19/24 09:08 Interval history: feels good, no further abd pain since drain, tati diet Review of Systems Review of Systems: All systems reviewed & are unremarkable except as noted in HPI and below Exam Const: General: cooperative, comfortable and no acute distress Resp: Auscultation: clear to auscultation bilaterally Cardio: Rate: regular rate Rhythm: regular rhythm GI: Inspection: normal to inspection and non-distended GI Palp: No abdominal tenderness and Yes Soft to palpation Other: abby drain - bilious Objective Data Vital Signs Vital Signs: Vital Signs - 24 hr 07/18/24 09:20 07/18/24 10:00 07/18/24 11:39 Temperature Pulse Rate 58 L 64 Respiratory Rate 20 Blood Pressure Pulse Oximetry 96 97 Oxygen Delivery Nasal Cannula Nasal Cannula Oxygen Flow Rate 2 2 07/18/24 11:39 07/18/24 12:00 07/18/24 14:00 Temperature 36.7 C Pulse Rate 61 64 63 Respiratory Rate 20 Blood Pressure 123/56 L Pulse Oximetry 98 Oxygen Delivery Oxygen Flow Rate 07/18/24 15:35 07/18/24 16:00 07/18/24 16:00 Temperature 36.5 C Pulse Rate 63 64 64 Respiratory Rate 19 20 Blood Pressure 147/63 H Pulse Oximetry 98 97 Oxygen Delivery Nasal Cannula Oxygen Flow Rate 2 07/18/24 18:00 07/18/24 19:45 07/18/24 20:00 Temperature 36.4 C Pulse Rate 66 64 66 Respiratory Rate 18 Blood Pressure 138/54 L Pulse Oximetry 97 Oxygen Delivery Oxygen Flow Rate 07/18/24 20:08 07/18/24 20:40 07/18/24 20:42 Temperature Pulse Rate 64 64 Respiratory Rate 18 Blood Pressure Pulse Oximetry 96 96 Oxygen Delivery Nasal Cannula Nasal Cannula Oxygen Flow Rate 2 2 07/18/24 22:00 07/18/24 23:41 07/18/24 23:45 Temperature 37.0 C Pulse Rate 59 L 60 61 Respiratory Rate 19 18 Blood Pressure 145/61 H Pulse Oximetry 98 97 Oxygen Delivery Nasal Cannula Oxygen Flow Rate 2 07/19/24 00:00 07/19/24 02:00 07/19/24 03:44 Temperature Pulse Rate 60 59 L 64 Respiratory Rate 18 Blood Pressure Pulse Oximetry 97 Oxygen Delivery Nasal Cannula Oxygen Flow Rate 2 07/19/24 04:00 07/19/24 04:36 07/19/24 06:00 Temperature 37.2 C Pulse Rate 58 L 62 58 L Respiratory Rate 19 Blood Pressure 147/63 H Pulse Oximetry 100 Oxygen Delivery Oxygen Flow Rate 07/19/24 08:18 Temperature 37.0 C Pulse Rate 61 Respiratory Rate 18 Blood Pressure 148/60 H Pulse Oximetry 97 Oxygen Delivery Oxygen Flow Rate Intake/Output Intake/Output: Intake & Output 07/16/24 07/17/24 07/18/24 07/19/24 23:59 23:59 23:59 23:59 Intake Total 800 1030 2070.0 143.1 Output Total 8664 497 1051 650 Balance -600 80 929.0 -506.9 Meds/Results Medications: Active Medications Generic Name Dose Route Start Last Admin Trade Name Freq PRN Reason Stop Dose Admin Albuterol 2 puff 07/15/24 12:39 Albuterol Sulfate (*Sp) Aerosol 1 Puff INHALATION QIDRT PRN shortness of breath or wheezing Amlodipine Besylate 10 mg 07/16/24 09:00 07/18/24 08:15 Amlodipine Besylate 10 Mg Tablet PO 10 mg DAILY SAMUEL Administration Aspirin 81 mg 07/16/24 09:00 07/18/24 08:14 Aspirin 81 Mg Enteric Tablet PO 81 mg DAILY SAMUEL Administration Atorvastatin Calcium 80 mg 07/15/24 18:00 07/18/24 17:12 Atorvastatin 40 Mg Tablet PO 80 mg QPM SAMUEL Administration Dextrose 12.5 gm 07/15/24 12:49 Dextrose 50% 25 Gm/50 Ml Syringe IV PUSH PRN PRN Hypoglycemia Protocol Ferrous Sulfate 325 mg 07/16/24 09:00 07/18/24 08:14 Ferrous Sulfate [address] BY MOUTH 325 mg DAILY SAMUEL Administration Glucagon 1 mg 07/15/24 12:49 Glucagon For Inj 1 Mg Vial IM PRN PRN Hypoglycemia Protocol Glucose 15 gm 07/15/24 12:49 Glucose Oral Gel 15 Gm Of Glucse In 37.5 Gm Tube PO PRN PRN Hypoglycemia Protocol Heparin Sodium (Porcine) 4,000 units 07/17/24 18:51 07/18/24 03:04 Heparin Sodium 5,000 Units/Ml Vial IV PUSH 4,000 units PRN PRN Administration aPTT less than 55 seconds Heparin Sodium (Porcine) 2,500 units 07/17/24 18:51 07/18/24 17:12 Heparin Sodium 5,000 Units/Ml Vial IV PUSH 2,500 units PRN PRN Administration aPTT 55 - 70 seconds Hydralazine HCl 25 mg 07/15/24 13:00 07/18/24 17:12 Hydralazine Hcl 25 Mg Tablet PO 25 mg TID SAMUEL Administration Dextrose 1,000 mls @ 100 mls/hr 07/15/24 12:49 Dextrose 5% 1,000 Ml IVPB PRN PRN Hypoglycemia Protocol Piperacillin/Tazobactam/Dextrose 3.375 gm in 50 mls @ 100 mls/hr 07/15/24 21:00 07/19/24 02:57 Zosyn 3.375 Gm/Ns 50 Ml IVPB 100 mls/hr Q6H SAMUEL Administration Heparin Sodium/Dextrose 25,000 units in 250 mls @ 12 mls/hr 07/17/24 18:55 07/19/24 08:20 Heparin Sodium/D5w 100 Units/Ml IV CONT 1,200 units/hr .[id number] SAMUEL 12 mls/hr Titration Protocol 1,200 UNITS/HR Insulin Aspart 2 - 5 units 07/15/24 17:00 07/18/24 17:13 Insulin Aspart (*Bkc) 100 Units/Ml SUB-Q 2 units TIDWM SAMUEL Administration Protocol Insulin Aspart 1 - 2 units 07/15/24 21:00 07/18/24 20:08 Insulin Aspart (*Bkc) 100 Units/Ml SUB-Q Not Given HS SAMUEL Protocol Latanoprost 1 drop 07/15/24 21:00 07/18/24 20:08 Latanoprost 0.005% Op Soln 2.5 Ml Btl EACH EYE 1 drop HS SAMUEL Administration Melatonin 3 mg 07/19/24 01:05 07/19/24 01:28 Melatonin 3 Mg Tablet PO 3 mg HS SAMUEL Administration Metoprolol Tartrate 50 mg 07/16/24 21:00 07/18/24 20:08 Metoprolol Tartrate 50 Mg Tab PO 50 mg Q12HR SAMUEL Administration Metoprolol Tartrate 5 mg 07/16/24 14:48 07/16/24 15:34 Metoprolol Tartrate Inj 5 Mg/5 Ml Vial IV PUSH 5 mg Q4H PRN Administration Tachycardia Nitroglycerin 0.4 mg 07/16/24 08:26 07/16/24 08:55 Nitroglycerin Sl 0.4 Mg Tablet SUBLINGUAL 0.4 mg Q5MIN PRN Administration Chest Pain Ondansetron HCl 4 mg 07/15/24 09:35 07/15/24 12:18 Ondansetron Inj 4 Mg/2 Ml Vial IV PUSH 4 mg Q4H PRN Administration Nausea Pantoprazole Sodium 40 mg 07/16/24 09:00 07/18/24 08:15 Pantoprazole 40 Mg Tablet PO 40 mg QAM SAMUEL Administration Radiology Results: ITS Impressions Abdomen/Pelvis CT 07/15/24 06:05 Impression: Distended gallbladder with questionable minimal pericholecystic inflammatory change. Consider acute cholecystitis. Consider right upper quadrant ultrasound for further evaluation. Upper Quadrant Ultrasound 07/15/24 08:13 IMPRESSION: 1. Nonspecific trace pericholecystic fluid but with normal-appearing gallbladder with no cholelithiasis or sonographic Smith sign to suggest acute cholecystitis. 2. Likely age-related mild to moderate diffuse right renal cortical atrophy. Chest X-Ray 07/15/24 09:01 IMPRESSION: No acute pulmonary pathology. Chest/Abdomen/Pelvis CT 07/16/24 10:12 IMPRESSION: CHEST: 1. Right pleural effusion. 2. No evidence of pneumonia or pneumothorax seen. ABDOMEN/PELVIS: 1. Distended gallbladder with tiny hyperdensities seen posterior in the gallbladder suggestive of stones. Ultrasound evaluation advised. Surrounding fluid is seen which may indicate cholecystitis. Clinical correlation advised. 2. Residual contrast seen in the urinary bladder. 3. No evidence of appendicitis, diverticulitis or intestinal obstruction. Cholecystostomy 07/17/24 15:27 IMPRESSION: 1. Successful ultrasound-guided cholecystostomy tube placement. 2. 20 mL bile was sent for aerobic, anaerobic, and fungal cultures. 3. The catheter will be managed by Dr. Mar. A catheter cholangiogram may be performed not less than 48 hours after tube placement if clinically indicated to assess cystic duct patency. If cholecystectomy is not eventually performed and the infectious episode has resolved, the tube may be removed over a guidewire, preferably not less than 3 weeks after placement to allow time for a mature catheter tract to form to prevent bile leakage and peritonitis. Labs Labs: Laboratory Results - last 24 hr 07/18/24 07/18/24 07/18/24 03:23 08:50 11:29 WBC 7.2 RBC 3.17 L Hgb 9.6 L Hct 30.3 L MCV 95.6 MCH 30.3 MCHC 31.7 L RDW 12.7 Plt Count 229 MPV 10.5 H PT INR APTT 103.9 H Sodium 132 L Potassium 3.5 Chloride 100 Carbon Dioxide 22 Anion Gap 10 BUN 36 H Creatinine 1.61 H Estim Creat Clear Calc 25 Estimated GFR 31 L Glucose 182 H POC Capillary Glucose 273 H Calcium 8.0 L 07/18/24 07/18/24 07/18/24 15:00 15:05 20:02 WBC RBC Hgb Hct MCV MCH MCHC RDW Plt Count MPV PT INR APTT 53.6 H Sodium Potassium Chloride Carbon Dioxide Anion Gap BUN Creatinine Estim Creat Clear Calc Estimated GFR Glucose POC Capillary Glucose 204 H 193 H Calcium 07/18/24 07/19/24 07/19/24 23:49 07:36 07:40 WBC RBC Hgb Hct MCV MCH MCHC RDW Plt Count MPV PT 15.5 H INR 1.2 APTT 140.9 H 85.0 H Sodium Potassium Chloride Carbon Dioxide Anion Gap BUN Creatinine Estim Creat Clear Calc Estimated GFR Glucose POC Capillary Glucose 128 H Calcium
[2024-07-19] MEDS: hydrALAZINE HCL 25 MG TABLET PO ×3 (09:26→16:39)
[2024-07-19] MEDS: PANTOPRAZOLE 40 MG TABLET PO (09:26)
[2024-07-19] MEDS: METOPROLOL TARTRATE 50 MG TAB PO ×2 (09:26→22:19)
[2024-07-19] MEDS: amLODIPine BESYLATE 10 MG TABLET PO (09:26)
[2024-07-19] MEDS: ASPIRIN 81 MG ENTERIC TABLET PO (09:26)
--- NOTE | 2024-07-19 09:41 | P.PNCA_ITS ---
Progress Note: A&P Assessment and Plan (1) Elevated troponin: Code(s): R79.89 - Other specified abnormal findings of blood chemistry Status: Acute Plan 83-year-old woman with CAD status post CABG (CHRISTIAN to LAD, SVG sequential to OM1 and 2, and SVG to diagonal), paroxysmal atrial fibrillation, mild aortic stenosis, and history of DVT/PE presents with nausea, vomiting, diarrhea, and upper abdominal pain NSTEMI -Given NSTEMI, recommended LHC. As patient has improved from her acute cholecystitis and last blood cultures from 07/17 remain negative, will plan for LHC today. -Continue ASA 81mg once daily. Continue high intensity statin. Continue beta shira. Bacteremia -On antibiotics as per primary team. Acute cholecystitis -S/p percutaneous cholecystostomy 07/17. CAD status post CABG -Continue ASA 81mg once daily. Continue high intensity statin. Continue beta shira. Paroxysmal atrial fibrillation with RVR -Increased Metoprolol to 50mg BID given PAF with RVR note on tele. -Holding Warfarin in anticipation of procedures. Currently on Heparin drip. Can resume Warfarin once no further procedures are anticipated. Goal INR of 2-3. Hyperlipidemia -Continue Atorvastatin 40 mg every evening Hypertension -Continue Amlodipine, Hydralazine, Metoprolol. Recommendations and plan discussed with Hospitalist. Subjective Date/time seen: 07/19/24 09:41 Interval history: Reason for visit: NSTEMI HPI: 83-year-old woman with CAD status post CABG (CHRISTIAN to LAD, SVG sequential to OM1 and 2, and SVG to diagonal), paroxysmal atrial fibrillation, mild aortic stenosis, and history of DVT/PE presents with nausea, vomiting, diarrhea, and upper abdominal pain. Her last meal was yesterday afternoon in approximately 6 hours afterwards, she started to have nausea quickly followed by severe vomiting as well as diarrhea with upper abdominal pain both in the epigastric, upper right, as well as upper left quadrant pain. She feels better this morning after antinausea medication. Her vomiting has slowed down as well as her diarrhea. Her upper abdominal pain is [employer] however is much alleviated compared to yesterday. Previous to this she was able to ambulate without any anginal equivalent symptoms. Date of service 07/16: Troponins have samantha to 5.9. Reports chest pain this morn ing. Had run of SVT this morning. Date of service 07/17: No chest pain this morning. Reports feeling hungry, otherwise okay. Tele with paroxysmal AFIB with RVR. Date of service 07/18: No chest pain or shortness of breath. Nausea is resolved. No diarrhea. Date of service 07/19: Feeling well this morning. No chest pain. Review of Systems Cardiovascular: Cardiovascular: Reports as per HPI Exam Const: General: comfortable and no acute distress HENMT: Mouth: Yes moist mucous membranes Eyes: General: appearance normal, both eyes and all related structures Sclera: sclerae normal Resp: Effort & Inspection: normal respiratory effort Cardio: Rate: regular rate Rhythm: regular rhythm GI: Other: Per abby drain in place Skin: General skin exam: normal color Neuro: Speech: normal speech Psych: Mental Status: mental status grossly normal Affect: normal affect Objective Data Vital Signs Vital Signs: Vital Signs - 24 hr 07/18/24 10:00 07/18/24 11:39 07/18/24 11:39 Temperature 36.7 C Pulse Rate 58 L 64 61 Respiratory Rate 20 20 Blood Pressure 123/56 L Pulse Oximetry 97 98 Oxygen Delivery Nasal Cannula Oxygen Flow Rate 2 07/18/24 12:00 07/18/24 14:00 07/18/24 15:35 Temperature 36.5 C Pulse Rate 64 63 63 Respiratory Rate 19 Blood Pressure 147/63 H Pulse Oximetry 98 Oxygen Delivery Oxygen Flow Rate 07/18/24 16:00 07/18/24 16:00 07/18/24 18:00 Temperature Pulse Rate 64 64 66 Respiratory Rate 20 Blood Pressure Pulse Oximetry 97 Oxygen Delivery Nasal Cannula Oxygen Flow Rate 2 07/18/24 19:45 07/18/24 20:00 07/18/24 20:08 Temperature 36.4 C Pulse Rate 64 66 64 Respiratory Rate 18 Blood Pressure 138/54 L Pulse Oximetry 97 Oxygen Delivery Oxygen Flow Rate 07/18/24 20:40 07/18/24 20:42 07/18/24 22:00 Temperature Pulse Rate 64 59 L Respiratory Rate 18 Blood Pressure Pulse Oximetry 96 96 Oxygen Delivery Nasal Cannula Nasal Cannula Oxygen Flow Rate 2 2 07/18/24 23:41 07/18/24 23:45 07/19/24 00:00 Temperature 37.0 C Pulse Rate 60 61 60 Respiratory Rate 19 18 Blood Pressure 145/61 H Pulse Oximetry 98 97 Oxygen Delivery Nasal Cannula Oxygen Flow Rate 2 07/19/24 02:00 07/19/24 03:44 07/19/24 04:00 Temperature Pulse Rate 59 L 64 58 L Respiratory Rate 18 Blood Pressure Pulse Oximetry 97 Oxygen Delivery Nasal Cannula Oxygen Flow Rate 2 07/19/24 04:36 07/19/24 06:00 07/19/24 08:18 Temperature 37.2 C 37.0 C Pulse Rate 62 58 L 61 Respiratory Rate 19 18 Blood Pressure 147/63 H 148/60 H Pulse Oximetry 100 97 Oxygen Delivery Oxygen Flow Rate Intake/Output Intake/Output: Intake & Output 07/16/24 07/17/24 07/18/24 07/19/24 23:59 23:59 23:59 23:59 Intake Total 800 1030 2070.0 193.1 Output Total 3466 944 4325 650 Balance -600 80 929.0 -456.9 Meds/Results Medications: Active Medications Generic Name Dose Route Start Last Admin Trade Name Freq PRN Reason Stop Dose Admin Albuterol 2 puff 07/15/24 12:39 Albuterol Sulfate (*Sp) Aerosol 1 Puff INHALATION QIDRT PRN shortness of breath or wheezing Amlodipine Besylate 10 mg 07/16/24 09:00 07/19/24 09:26 Amlodipine Besylate 10 Mg Tablet PO 10 mg DAILY SAMUEL Administration Aspirin 81 mg 07/16/24 09:00 07/19/24 09:26 Aspirin 81 Mg Enteric Tablet PO 81 mg DAILY SAMUEL Administration Atorvastatin Calcium 80 mg 07/15/24 18:00 07/18/24 17:12 Atorvastatin 40 Mg Tablet PO 80 mg QPM SAMUEL Administration Dextrose 12.5 gm 07/15/24 12:49 Dextrose 50% 25 Gm/50 Ml Syringe IV PUSH PRN PRN Hypoglycemia Protocol Ferrous Sulfate 325 mg 07/16/24 09:00 07/18/24 08:14 Ferrous Sulfate [address] BY MOUTH 325 mg DAILY SAMUEL Administration Glucagon 1 mg 07/15/24 12:49 Glucagon For Inj 1 Mg Vial IM PRN PRN Hypoglycemia Protocol Glucose 15 gm 07/15/24 12:49 Glucose Oral Gel 15 Gm Of Glucse In 37.5 Gm Tube PO PRN PRN Hypoglycemia Protocol Heparin Sodium (Porcine) 4,000 units 07/17/24 18:51 07/18/24 03:04 Heparin Sodium 5,000 Units/Ml Vial IV PUSH 4,000 units PRN PRN Administration aPTT less than 55 seconds Heparin Sodium (Porcine) 2,500 units 07/17/24 18:51 07/18/24 17:12 Heparin Sodium 5,000 Units/Ml Vial IV PUSH 2,500 units PRN PRN Administration aPTT 55 - 70 seconds Hydralazine HCl 25 mg 07/15/24 13:00 07/19/24 09:26 Hydralazine Hcl 25 Mg Tablet PO 25 mg TID SAMUEL Administration Dextrose 1,000 mls @ 100 mls/hr 07/15/24 12:49 Dextrose 5% 1,000 Ml IVPB PRN PRN Hypoglycemia Protocol Piperacillin/Tazobactam/Dextrose 3.375 gm in 50 mls @ 100 mls/hr 07/15/24 21:00 07/19/24 09:25 Zosyn 3.375 Gm/Ns 50 Ml IVPB 100 mls/hr Q6H SAMUEL Administration Heparin Sodium/Dextrose 25,000 units in 250 mls @ 12 mls/hr 07/17/24 18:55 07/19/24 08:20 Heparin Sodium/D5w 100 Units/Ml IV CONT 1,200 units/hr .[id number] SAMUEL 12 mls/hr Titration Protocol 1,200 UNITS/HR Insulin Aspart 2 - 5 units 07/15/24 17:00 07/19/24 09:15 Insulin Aspart (*Bkc) 100 Units/Ml SUB-Q Not Given TIDWM SAMUEL Protocol Insulin Aspart 1 - 2 units 07/15/24 21:00 07/18/24 20:08 Insulin Aspart (*Bkc) 100 Units/Ml SUB-Q Not Given HS COUNTS INCLUDE 234 BEDS AT [facility] Protocol Latanoprost 1 drop 07/15/24 21:00 07/18/24 20:08 Latanoprost 0.005% Op Soln 2.5 Ml Btl EACH EYE 1 drop HS SAMUEL Administration Melatonin 3 mg 07/19/24 01:05 07/19/24 01:28 Melatonin 3 Mg Tablet PO 3 mg HS SAMUEL Administration Metoprolol Tartrate 50 mg 07/16/24 21:00 07/19/24 09:26 Metoprolol Tartrate 50 Mg Tab PO 50 mg Q12HR SAMUEL Administration Metoprolol Tartrate 5 mg 07/16/24 14:48 07/16/24 15:34 Metoprolol Tartrate Inj 5 Mg/5 Ml Vial IV PUSH 5 mg Q4H PRN Administration Tachycardia Nitroglycerin 0.4 mg 07/16/24 08:26 07/16/24 08:55 Nitroglycerin Sl 0.4 Mg Tablet SUBLINGUAL 0.4 mg Q5MIN PRN Administration Chest Pain Ondansetron HCl 4 mg 07/15/24 09:35 07/15/24 12:18 Ondansetron Inj 4 Mg/2 Ml Vial IV PUSH 4 mg Q4H PRN Administration Nausea Pantoprazole Sodium 40 mg 07/16/24 09:00 07/19/24 09:26 Pantoprazole 40 Mg Tablet PO 40 mg QAM SAMUEL Administration Radiology Results: ITS Impressions Abdomen/Pelvis CT 07/15/24 06:05 Impression: Distended gallbladder with questionable minimal pericholecystic inflammatory change. Consider acute cholecystitis. Consider right upper quadrant ultrasound for further evaluation. Upper Quadrant Ultrasound 07/15/24 08:13 IMPRESSION: 1. Nonspecific trace pericholecystic fluid but with normal-appearing gallbladder with no cholelithiasis or sonographic Smith sign to suggest acute cholecystitis. 2. Likely age-related mild to moderate diffuse right renal cortical atrophy. Chest X-Ray 07/15/24 09:01 IMPRESSION: No acute pulmonary pathology. Chest/Abdomen/Pelvis CT 07/16/24 10:12 IMPRESSION: CHEST: 1. Right pleural effusion. 2. No evidence of pneumonia or pneumothorax seen. ABDOMEN/PELVIS: 1. Distended gallbladder with tiny hyperdensities seen posterior in the gallbladder suggestive of stones. Ultrasound evaluation advised. Surrounding fluid is seen which may indicate cholecystitis. Clinical correlation advised. 2. Residual contrast seen in the urinary bladder. 3. No evidence of appendicitis, diverticulitis or intestinal obstruction. Cholecystostomy 07/17/24 15:27 IMPRESSION: 1. Successful ultrasound-guided cholecystostomy tube placement. 2. 20 mL bile was sent for aerobic, anaerobic, and fungal cultures. 3. The catheter will be managed by Dr. Mar. A catheter cholangiogram may be performed not less than 48 hours after tube placement if clinically indicated to assess cystic duct patency. If cholecystectomy is not eventually performed and the infectious episode has resolved, the tube may be removed over a guidewire, preferably not less than 3 weeks after placement to allow time for a mature catheter tract to form to prevent bile leakage and peritonitis. Labs Labs: Laboratory Results - last 24 hr 07/18/24 07/18/24 07/18/24 03:23 08:50 11:29 WBC 7.2 RBC 3.17 L Hgb 9.6 L Hct 30.3 L MCV 95.6 MCH 30.3 MCHC 31.7 L RDW 12.7 Plt Count 229 MPV 10.5 H PT INR APTT Sodium 132 L Potassium 3.5 Chloride 100 Carbon Dioxide 22 Anion Gap 10 BUN 36 H Creatinine 1.61 H Estim Creat Clear Calc 25 Estimated GFR 31 L Glucose 182 H POC Capillary Glucose 273 H Calcium 8.0 L 07/18/24 07/18/24 07/18/24 15:00 15:05 20:02 WBC RBC Hgb Hct MCV MCH MCHC RDW Plt Count MPV PT INR APTT 53.6 H Sodium Potassium Chloride Carbon Dioxide Anion Gap BUN Creatinine Estim Creat Clear Calc Estimated GFR Glucose POC Capillary Glucose 204 H 193 H Calcium 07/18/24 07/19/24 07/19/24 23:49 07:36 07:40 WBC RBC Hgb Hct MCV MCH MCHC RDW Plt Count MPV PT 15.5 H INR 1.2 APTT 140.9 H 85.0 H Sodium Potassium Chloride Carbon Dioxide Anion Gap BUN Creatinine Estim Creat Clear Calc Estimated GFR Glucose POC Capillary Glucose 128 H Calcium
--- NOTE | 2024-07-19 09:54 | WPDMODSED ---
Moderate Sedation Note-Pt Data Patient Data Diagnosis: NSTEMI Present Complaint: NSTEMI Procedure to be performed/Plan: Coronary angiography, left heart cath, bypass graft angiography, +/- PCI Allergies Allergy/AdvReac Type Severity Reaction Status Date / Time No Known Allergies Allergy Verified 07/19/24 09:15 Home Medications ?Medication ?Instructions ?Recorded ?Confirmed ?Type blood sugar diagnostic (Accu-Chek #100 ea 05/20/19 07/15/24 Rx Ingrid Plus test strips) aspirin 81 mg tablet,delayed 81 mg PO DAILY 06/05/19 07/15/24 History release loratadine 10 mg tablet 10 mg PO DAILY 09/11/19 07/15/24 History warfarin 2 mg tablet 6 mg PO DAILY 09/11/19 07/15/24 History ferrous sulfate 325 mg (65 mg 325 mg PO DAILY #90 tabs 10/24/22 07/15/24 Rx iron) tablet (Iron (ferrous sulfate)) citalopram 10 mg tablet 10 mg PO DAILY #90 tabs 03/06/23 07/15/24 Rx metoprolol tartrate 25 mg tablet 25 mg PO BID 07/25/23 07/15/24 History latanoprost 0.005 % eye drops 1 drp EACH EYE HS 08/09/23 07/15/24 History metformin 500 mg tablet 500 mg PO BID 08/09/23 07/15/24 History spironolactone 25 mg tablet 25 mg PO DAILY #90 tabs 10/02/23 07/15/24 Rx albuterol sulfate 90 mcg/actuation 2 puff inhalation QID PRN 04/15/24 07/15/24 Rx aerosol inhaler shortness of breath or wheezing #6.7 grams linagliptin 5 mg tablet (Tradjenta) 5 mg PO QAM #90 tabs 05/28/24 07/15/24 Rx ergocalciferol (vitamin D2) 1,250 1,250 mcg PO WEEKLY #14 caps 06/14/24 07/15/24 Rx mcg (50,000 unit) capsule (Vitamin D2) amlodipine 10 mg tablet 10 mg PO DAILY #90 tabs 07/01/24 07/15/24 Rx atorvastatin 80 mg tablet 80 mg PO QPM 07/15/24 07/15/24 History cetirizine 10 mg tablet 10 mg PO DAILY 07/15/24 07/15/24 History hydralazine 50 mg tablet 25 mg PO TID 07/15/24 07/15/24 History lansoprazole 15 mg capsule,delayed 15 mg PO DAILY 07/15/24 07/15/24 History release ondansetron 4 mg disintegrating 4 mg PO Q8H PRN nausea and 07/15/24 Rx tablet vomiting #10 tabs Current Medications: Active Medications Albuterol (Albuterol Sulfate (*Sp) Aerosol 1 Puff) 2 puff INHALATION QIDRT PRN PRN Reason: shortness of breath or wheezing Amlodipine Besylate (Amlodipine Besylate 10 Mg Tablet) 10 mg PO DAILY [facility] Last Admin: 07/19/24 09:26 Dose: 10 mg Aspirin (Aspirin 81 Mg Enteric Tablet) 81 mg PO DAILY [facility] Last Admin: 07/19/24 09:26 Dose: 81 mg Atorvastatin Calcium (Atorvastatin 40 Mg Tablet) 80 mg PO QPM [facility] Last Admin: 07/18/24 17:12 Dose: 80 mg Dextrose (Dextrose 50% 25 Gm/50 Ml Syringe) 12.5 gm IV PUSH PRN PRN; Protocol PRN Reason: Hypoglycemia Ferrous Sulfate (Ferrous Sulfate [address]) 325 mg BY MOUTH DAILY [facility] Last Admin: 07/18/24 08:14 Dose: 325 mg Glucagon (Glucagon For Inj 1 Mg Vial) 1 mg IM PRN PRN; Protocol PRN Reason: Hypoglycemia Glucose (Glucose Oral Gel 15 Gm Of Glucse In 37.5 Gm Tube) 15 gm PO PRN PRN; Protocol PRN Reason: Hypoglycemia Heparin Sodium (Porcine) (Heparin Sodium 5,000 Units/Ml Vial) 4,000 units IV PUSH PRN PRN PRN Reason: aPTT less than 55 seconds Last Admin: 07/18/24 03:04 Dose: 4,000 units Heparin Sodium (Porcine) (Heparin Sodium 5,000 Units/Ml Vial) 2,500 units IV PUSH PRN PRN PRN Reason: aPTT 55 - 70 seconds Last Admin: 07/18/24 17:12 Dose: 2,500 units Hydralazine HCl (Hydralazine Hcl 25 Mg Tablet) 25 mg PO TID [facility] Last Admin: 07/19/24 09:26 Dose: 25 mg Dextrose (Dextrose 5% 1,000 Ml) 1,000 mls @ 100 mls/hr IVPB PRN PRN; Protocol PRN Reason: Hypoglycemia Piperacillin/Tazobactam/Dextrose (Zosyn 3.375 Gm/Ns 50 Ml) 3.375 gm in 50 mls @ 100 mls/hr IVPB Q6H SAMUEL Last Admin: 07/19/24 09:25 Dose: 100 mls/hr Heparin Sodium/Dextrose (Heparin Sodium/D5w 100 Units/Ml) 25,000 units in 250 mls @ 12 mls/hr IV CONT .[id number] SAMUEL; Protocol Last Titration: 07/19/24 08:20 Dose: 1,200 units/hr, 12 mls/hr Insulin Aspart (Insulin Aspart (*Bkc) 100 Units/Ml) 2 - 5 units SUB-Q TIDWM SAMUEL; Protocol Last Admin: 07/19/24 09:15 Dose: Not Given Insulin Aspart (Insulin Aspart (*Bkc) 100 Units/Ml) 1 - 2 units SUB-Q HS SAMUEL; Protocol Last Admin: 07/18/24 20:08 Dose: Not Given Latanoprost (Latanoprost 0.005% Op Soln 2.5 Ml Btl) 1 drop EACH EYE HS [facility] Last Admin: 07/18/24 20:08 Dose: 1 drop Melatonin (Melatonin 3 Mg Tablet) 3 mg PO HS [facility] Last Admin: 07/19/24 01:28 Dose: 3 mg Metoprolol Tartrate (Metoprolol Tartrate 50 Mg Tab) 50 mg PO Q12HR [facility] Last Admin: 07/19/24 09:26 Dose: 50 mg Metoprolol Tartrate (Metoprolol Tartrate Inj 5 Mg/5 Ml Vial) 5 mg IV PUSH Q4H PRN PRN Reason: Tachycardia Last Admin: 07/16/24 15:34 Dose: 5 mg Nitroglycerin (Nitroglycerin Sl 0.4 Mg Tablet) 0.4 mg SUBLINGUAL Q5MIN PRN PRN Reason: Chest Pain Last Admin: 07/16/24 08:55 Dose: 0.4 mg Ondansetron HCl (Ondansetron Inj 4 Mg/2 Ml Vial) 4 mg IV PUSH Q4H PRN PRN Reason: Nausea Last Admin: 07/15/24 12:18 Dose: 4 mg Pantoprazole Sodium (Pantoprazole 40 Mg Tablet) 40 mg PO QAM [facility] Last Admin: 07/19/24 09:26 Dose: 40 mg Sedation/Anesthesia: No previous sedation/anesthesia problems (including family history). 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 H/O heart bypass surgery H/O sinus surgery H/O shoulder surgery H/O cataract extraction History of bunionectomy Family History Family History Other Diabetes mellitus Family history of arthritis Family history of malignant neoplasm Social History Social History Social History: Smoking status: Never smoker Second hand tobacco smoke exposure: No Alcohol intake: never Substance use: never Substance use type: does not use Do You Feel Safe in your Home?: Yes Lack of Transportation: No Lack of Food: Never True Current Housing: I Have Housing Concerned About Future Housing: No Difficulty Paying Gas/Electric Bills: No Difficulty Paying for Meds: No Currently Unemployed: No Education: High School Diploma/GED Difficulty w/ Childcare or Family Care: No Living arrangements: alone Occupation/Education: occupation Additional occupation/education comments: [employer]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 Gender identity (if verbalized by the patient): Female Sexual Orientation (if Verbalized by the Patient): Straight or Heterosexual Spiritual care concerns: No Mod Sed Physical Exam Physical Exam Pre Procedural Exam: Normal: Appearance, Lungs, Heart Rate, Heart Rhythm, Neuro Exam, Extremities and Skin and Variation: Abdomen (Perc abby drain in place ) Hours since solid foods: 12 Hours since liquid intake: 8 Mallampati Classification: class III Internal Medicine - PN: Obj Da Vital Signs Vital Signs: Vital Signs - 24 hr 07/18/24 10:00 07/18/24 11:39 07/18/24 11:39 Temperature 36.7 C Pulse Rate 58 L 64 61 Respiratory Rate 20 20 Blood Pressure 123/56 L Pulse Oximetry 97 98 Oxygen Delivery Nasal Cannula Oxygen Flow Rate 2 07/18/24 12:00 07/18/24 14:00 07/18/24 15:35 Temperature 36.5 C Pulse Rate 64 63 63 Respiratory Rate 19 Blood Pressure 147/63 H Pulse Oximetry 98 Oxygen Delivery Oxygen Flow Rate 07/18/24 16:00 07/18/24 16:00 07/18/24 18:00 Temperature Pulse Rate 64 64 66 Respiratory Rate 20 Blood Pressure Pulse Oximetry 97 Oxygen Delivery Nasal Cannula Oxygen Flow Rate 2 07/18/24 19:45 07/18/24 20:00 07/18/24 20:08 Temperature 36.4 C Pulse Rate 64 66 64 Respiratory Rate 18 Blood Pressure 138/54 L Pulse Oximetry 97 Oxygen Delivery Oxygen Flow Rate 07/18/24 20:40 07/18/24 20:42 07/18/24 22:00 Temperature Pulse Rate 64 59 L Respiratory Rate 18 Blood Pressure Pulse Oximetry 96 96 Oxygen Delivery Nasal Cannula Nasal Cannula Oxygen Flow Rate 2 2 07/18/24 23:41 07/18/24 23:45 07/19/24 00:00 Temperature 37.0 C Pulse Rate 60 61 60 Respiratory Rate 19 18 Blood Pressure 145/61 H Pulse Oximetry 98 97 Oxygen Delivery Nasal Cannula Oxygen Flow Rate 2 07/19/24 02:00 07/19/24 03:44 07/19/24 04:00 Temperature Pulse Rate 59 L 64 58 L Respiratory Rate 18 Blood Pressure Pulse Oximetry 97 Oxygen Delivery Nasal Cannula Oxygen Flow Rate 2 07/19/24 04:36 07/19/24 06:00 07/19/24 08:18 Temperature 37.2 C 37.0 C Pulse Rate 62 58 L 61 Respiratory Rate 19 18 Blood Pressure 147/63 H 148/60 H Pulse Oximetry 100 97 Oxygen Delivery Oxygen Flow Rate Intake/Output Intake/Output: Intake & Output 07/16/24 07/17/24 07/18/24 07/19/24 23:59 23:59 23:59 23:59 Intake Total 800 1030 2070.0 193.1 Output Total 3150 466 4440 650 Balance -600 80 929.0 -456.9 Meds/Results Medications: Active Medications Generic Name Dose Route Start Last Admin Trade Name Freq PRN Reason Stop Dose Admin Albuterol 2 puff 07/15/24 12:39 Albuterol Sulfate (*Sp) Aerosol 1 Puff INHALATION QIDRT PRN shortness of breath or wheezing Amlodipine Besylate 10 mg 07/16/24 09:00 07/19/24 09:26 Amlodipine Besylate 10 Mg Tablet PO 10 mg DAILY SAMUEL Administration Aspirin 81 mg 07/16/24 09:00 07/19/24 09:26 Aspirin 81 Mg Enteric Tablet PO 81 mg DAILY SAMUEL Administration Atorvastatin Calcium 80 mg 07/15/24 18:00 07/18/24 17:12 Atorvastatin 40 Mg Tablet PO 80 mg QPM SAMUEL Administration Dextrose 12.5 gm 07/15/24 12:49 Dextrose 50% 25 Gm/50 Ml Syringe IV PUSH PRN PRN Hypoglycemia Protocol Ferrous Sulfate 325 mg 07/16/24 09:00 07/18/24 08:14 Ferrous Sulfate [address] BY MOUTH 325 mg DAILY SAMUEL Administration Glucagon 1 mg 07/15/24 12:49 Glucagon For Inj 1 Mg Vial IM PRN PRN Hypoglycemia Protocol Glucose 15 gm 07/15/24 12:49 Glucose Oral Gel 15 Gm Of Glucse In 37.5 Gm Tube PO PRN PRN Hypoglycemia Protocol Heparin Sodium (Porcine) 4,000 units 07/17/24 18:51 07/18/24 03:04 Heparin Sodium 5,000 Units/Ml Vial IV PUSH 4,000 units PRN PRN Administration aPTT less than 55 seconds Heparin Sodium (Porcine) 2,500 units 07/17/24 18:51 07/18/24 17:12 Heparin Sodium 5,000 Units/Ml Vial IV PUSH 2,500 units PRN PRN Administration aPTT 55 - 70 seconds Hydralazine HCl 25 mg 07/15/24 13:00 07/19/24 09:26 Hydralazine Hcl 25 Mg Tablet PO 25 mg TID SAMUEL Administration Dextrose 1,000 mls @ 100 mls/hr 07/15/24 12:49 Dextrose 5% 1,000 Ml IVPB PRN PRN Hypoglycemia Protocol Piperacillin/Tazobactam/Dextrose 3.375 gm in 50 mls @ 100 mls/hr 07/15/24 21:00 07/19/24 09:25 Zosyn 3.375 Gm/Ns 50 Ml IVPB 100 mls/hr Q6H SAMUEL Administration Heparin Sodium/Dextrose 25,000 units in 250 mls @ 12 mls/hr 07/17/24 18:55 07/19/24 08:20 Heparin Sodium/D5w 100 Units/Ml IV CONT 1,200 units/hr .[id number] SAMUEL 12 mls/hr Titration Protocol 1,200 UNITS/HR Insulin Aspart 2 - 5 units 07/15/24 17:00 07/19/24 09:15 Insulin Aspart (*Bkc) 100 Units/Ml SUB-Q Not Given TIDWM SAMUEL Protocol Insulin Aspart 1 - 2 units 07/15/24 21:00 07/18/24 20:08 Insulin Aspart (*Bkc) 100 Units/Ml SUB-Q Not Given HS SAMUEL Protocol Latanoprost 1 drop 07/15/24 21:00 07/18/24 20:08 Latanoprost 0.005% Op Soln 2.5 Ml Btl EACH EYE 1 drop HS SAMUEL Administration Melatonin 3 mg 07/19/24 01:05 07/19/24 01:28 Melatonin 3 Mg Tablet PO 3 mg HS SAMUEL Administration Metoprolol Tartrate 50 mg 07/16/24 21:00 07/19/24 09:26 Metoprolol Tartrate 50 Mg Tab PO 50 mg Q12HR SAMUEL Administration Metoprolol Tartrate 5 mg 07/16/24 14:48 07/16/24 15:34 Metoprolol Tartrate Inj 5 Mg/5 Ml Vial IV PUSH 5 mg Q4H PRN Administration Tachycardia Nitroglycerin 0.4 mg 07/16/24 08:26 07/16/24 08:55 Nitroglycerin Sl 0.4 Mg Tablet SUBLINGUAL 0.4 mg Q5MIN PRN Administration Chest Pain Ondansetron HCl 4 mg 07/15/24 09:35 07/15/24 12:18 Ondansetron Inj 4 Mg/2 Ml Vial IV PUSH 4 mg Q4H PRN Administration Nausea Pantoprazole Sodium 40 mg 07/16/24 09:00 07/19/24 09:26 Pantoprazole 40 Mg Tablet PO 40 mg QAM SAMUEL Administration Radiology Results: ITS Impressions Abdomen/Pelvis CT 07/15/24 06:05 Impression: Distended gallbladder with questionable minimal pericholecystic inflammatory change. Consider acute cholecystitis. Consider right upper quadrant ultrasound for further evaluation. Upper Quadrant Ultrasound 07/15/24 08:13 IMPRESSION: 1. Nonspecific trace pericholecystic fluid but with normal-appearing gallbladder with no cholelithiasis or sonographic Smith sign to suggest acute cholecystitis. 2. Likely age-related mild to moderate diffuse right renal cortical atrophy. Chest X-Ray 07/15/24 09:01 IMPRESSION: No acute pulmonary pathology. Chest/Abdomen/Pelvis CT 07/16/24 10:12 IMPRESSION: CHEST: 1. Right pleural effusion. 2. No evidence of pneumonia or pneumothorax seen. ABDOMEN/PELVIS: 1. Distended gallbladder with tiny hyperdensities seen posterior in the gallbladder suggestive of stones. Ultrasound evaluation advised. Surrounding fluid is seen which may indicate cholecystitis. Clinical correlation advised. 2. Residual contrast seen in the urinary bladder. 3. No evidence of appendicitis, diverticulitis or intestinal obstruction. Cholecystostomy 07/17/24 15:27 IMPRESSION: 1. Successful ultrasound-guided cholecystostomy tube placement. 2. 20 mL bile was sent for aerobic, anaerobic, and fungal cultures. 3. The catheter will be managed by Dr. Mar. A catheter cholangiogram may be performed not less than 48 hours after tube placement if clinically indicated to assess cystic duct patency. If cholecystectomy is not eventually performed and the infectious episode has resolved, the tube may be removed over a guidewire, preferably not less than 3 weeks after placement to allow time for a mature catheter tract to form to prevent bile leakage and peritonitis. Labs 07/18/24 03:23 07/18/24 08:50 Labs: Laboratory Results - last 24 hr 07/18/24 07/18/24 07/18/24 03:23 08:50 11:29 WBC 7.2 RBC 3.17 L Hgb 9.6 L Hct 30.3 L MCV 95.6 MCH 30.3 MCHC 31.7 L RDW 12.7 Plt Count 229 MPV 10.5 H PT INR APTT Sodium 132 L Potassium 3.5 Chloride 100 Carbon Dioxide 22 Anion Gap 10 BUN 36 H Creatinine 1.61 H Estim Creat Clear Calc 25 Estimated GFR 31 L Glucose 182 H POC Capillary Glucose 273 H Calcium 8.0 L 07/18/24 07/18/24 07/18/24 15:00 15:05 20:02 WBC RBC Hgb Hct MCV MCH MCHC RDW Plt Count MPV PT INR APTT 53.6 H Sodium Potassium Chloride Carbon Dioxide Anion Gap BUN Creatinine Estim Creat Clear Calc Estimated GFR Glucose POC Capillary Glucose 204 H 193 H Calcium 07/18/24 07/19/24 07/19/24 23:49 07:36 07:40 WBC RBC Hgb Hct MCV MCH MCHC RDW Plt Count MPV PT 15.5 H INR 1.2 APTT 140.9 H 85.0 H Sodium Potassium Chloride Carbon Dioxide Anion Gap BUN Creatinine Estim Creat Clear Calc Estimated GFR Glucose POC Capillary Glucose 128 H Calcium ASA Classification/Sedation ASA Classification/Sedation ASA Class: III Emergent: No Risks: Risks, benefits and alternatives explained and patient/family accepted plan for sedation. Patient re-evaluated immediately prior to sedation.
--- NOTE | 2024-07-19 11:05 | PC.NURSE ---
On 07/19/24, the student, [Corrine Wall], provided care and completed [facility] documentation on this patient. I have reviewed the student's documentation and agree with the findings.
--- NOTE | 2024-07-19 11:11 | WPDCARDPROC ---
Cardiac Cath Procedure Note Date of procedure:: 07/19/24 Performing physician:: CATHETERIZATION LABORATORY REPORT Procedure Date: 07/19/2024 Flask Handler: Odilia Brothers M.D., [facility]? Referring Physician: Odilia Brothers M.D. ? Anesthesia: Versed and Fentanyl were ordered and given in my presence at 10:31, procedure ended at 10:59. Supervision of nurse monitored moderate sedation with Versed and Fentanyl was provided for 28 minutes. Total of Versed 1mg and Fentanyl 25mcg were administered by the Experimental Mechanic RN Marietta Marcelo. Pre-op Diagnosis: NSTEMI, Coronary artery disease s/p CABG Post-op Diagnosis: 1. [place] multivessel coronary artery disease. There is moderate ostial RCA disease. There was no pressure dampening with engagement of the catheter. Calcifications seen in the proximal-mid portion of the RCA. In the midportion, there is an 80% stenosis. This lesion is likely the culprit for the patient's NSTEMI. The RCA is not revascularized with a bypass graft. Given the calcified vessel and ostial disease, PCI of the mid RCA stenosis may be more technically challenging, therefore, PCI not pursued at this time at this institution. In addition, would like patient to recover from her acute cholecystitis and bacteremia before proceeding with stent implantation as she will need to be on uninterrupted DAPT post-PCI. Therefore, will plan for outpatient PCI once she has recovered from her acute non-cardiac issues as long as she remains stable from a cardiac standpoint. 2. CHRISTIAN to LAD is patent. 3. SVG to diagonal is patent 4. Sequential SVG to OM1 and OM2 is patent. OM-1 is a small caliber vessel that is diffusely diseased. Immediately proximal to the anastomosis site on OM-2, there is a 99% stenosis. Procedure(s): 1. Moderate sedation 2. Ultrasound-guided access of the right common femoral artery 3. Coronary angiography 4. Bypass graft angiography 5. Angioseal closure of the right common femoral artery Access Site: Right common femoral artery Brief History and Clinical Indications: Patient is an 83 year old female with CAD s/p CABG who is admitted with acute cholecystitis and bacteremia. Found to have NSTEMI as well, therefore, referred for [facility]. All risks, benefits and alternatives to left heart catheterization with or without percutaneous coronary intervention was discussed at length with the patient. Risk of complications including but not limited to bleeding, infection, arrhythmia, stroke, worsening kidney function, blood loss, groin hematoma, limb loss, emergency coronary artery bypass grafting, and even were discussed with the patient and all questions were answered. The patient understood and wished to proceed. Time out called, patient name, date of , medical record number, allergies, procedure performed, identify Flask Handler, patient and staff member concurred with accurate data, procedure carried on. Findings: LEFT HEART CATHETERIZATION FINDINGS: 1. Left main: The left main coronary artery is widely patent without any significant obstructive disease. 2. Left anterior descending: Heavy calcifications seen in the proximal LAD. There is moderate 50-60% ostial LAD disease. There is mild disease in the mid portion. There is retrograde filling into the CHRISTIAN upon contrast injection of the [place] left coronary system. The first diagonal branch is heavily calcified and has significant 90% ostial-proximal disease; there is significant disease in the mid portion as well; competitive filling is seen in the diagonal branch. 3. Left circumflex: Heavy calcifications seen in the proximal LCX. There is 90% ostial LCX stenosis. The LCX is [place] [employer] in the mid portion. 4. Right coronary artery: The RCA is the dominant vessel. There is moderate ostial disease. There was no pressure dampening with engagement of the catheter. Calcifications seen in the proximal-mid portion of the RCA. In the midportion, there is an 80% stenosis. There is diffuse mild disease in the mid to distal portion. The proximal portion of the RPDA has moderate disease. 5. Bypass graft angiography A. CHRISTIAN to LAD is patent. B. SVG to diagonal is patent. C. Sequential SVG to OM1 and OM2 is patent. OM-1 is a small caliber vessel that is diffusely disease. Immediately proximal to the anastomosis site on OM-2, there is a 99% stenosis. Description of Procedure: Informed consent signed and placed in the chart. Patient transferred to offset label rewinder room. Prepped and draped in usual sterile fashion. 2% lidocaine in right groin area. Micropuncture needle used to access right common femoral artery with Seldinger technique under fluoroscopic and ultrasound guidance. J wire advanced, micropuncture cannula placed. Right iliofemoral angiogram performed, access confirmed and micropuncture cannula exchanged for 5-FR sheath. 5F FL 4 diagnostic catheter engaged Left Main Coronary Artery. 5F FR 4 diagnostic catheter engaged Right Coronary Artery. 5F FR 4 diagnostic catheter engaged in SVG-Diagonal and SVG-OM1-OM2 grafts. 5F IM diagnostic catheter engaged in CHRISTIAN bypass graft. Multiple orthogonal angiogram obtained and reviewed Hemostasis was achieved by 6F Angioseal. Disposition: Floor Plan: Continue aggressive medical therapy and risk factor modification. ? Odilia Brothers M.D. Interventional Cardiology
[2024-07-19 12:58] LABS: Glucose Point of Care 167 mg/dl (65-105)
[2024-07-19] MEDS: FERROUS SULFATE 325 MG TABLET DR BY MOUTH (13:00)
[2024-07-19] MEDS: SODIUM CHLORIDE 0.9% IV 1,000 ML 125 ML IV CONT (13:00)
--- NOTE | 2024-07-19 13:51 | PM.IMPN ---
Progress Note: A&P Assessment and Plan (1) Anxiety: Code(s): F41.9 - Anxiety disorder, unspecified Status: Acute Assessment and Plan: Stable on current medications, will continue current treatment. (2) Depression: Code(s): F32.9 - Major depressive disorder, single episode, unspecified Status: Acute Assessment and Plan: Stable on current medications, will continue current treatment. (3) HTN (hypertension): Qualifiers: Hypertension type: essential hypertension Qualified Code(s): I10 - Essential (primary) hypertension Code(s): I10 - Essential (primary) hypertension Status: Acute Assessment and Plan: Stable on current medications, will continue current treatment. (4) CAD (coronary artery disease): Code(s): I25.10 - Atherosclerotic heart disease of [place] coronary artery without angina pectoris Status: Acute Assessment and Plan: Stable on current medications, will continue current treatment. (5) Troponin level elevated: Code(s): R79.89 - Other specified abnormal findings of blood chemistry Status: Acute Assessment and Plan: Stable on current medications, will continue current treatment. (6) Hx of CABG: Code(s): Z95.1 - Presence of aortocoronary bypass graft Status: Acute Assessment and Plan: Stable on current medications, will continue current treatment. (7) Paroxysmal atrial fibrillation: Code(s): I48.0 - Paroxysmal atrial fibrillation Status: Acute Assessment and Plan: Stable on current medications, will continue current treatment. (8) Pulmonary embolism: Code(s): I26.99 - Other pulmonary embolism without acute cor pulmonale Status: Acute Assessment and Plan: On Iv heparin, monitor closely. (9) Diabetes 1.5, managed as type 2: Code(s): E13.9 - Other specified diabetes mellitus without complications Status: Acute Assessment and Plan: Stable on current medications, will continue current treatment. (10) Abdominal pain, epigastric: Code(s): R10.13 - Epigastric pain Status: Acute Assessment and Plan: S/post cholecystotomy (11) GERD (gastroesophageal reflux disease): Code(s): K21.9 - Gastro-esophageal reflux disease without esophagitis Status: Acute Assessment and Plan: Stable on current medications, will continue current treatment. 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 Plan This is a 83-year-old female who presents to the ED with nausea vomiting and epigastric pain. She reported pain started about 10:00 p.m. last night. Continue to worsen and hence called EMS. He also reports some nausea vomiting and diarrhea associated with this pain. When EMS arrived patient was saturating 80% on room air and hence was placed on 2 L via nasal cannula. Upon arrival to the ED patient was saturating 93% on room air. Received IV Zofran 1 time dose per EMS. No chest pain reported. EKG showed sinus bradycardia at a rate of 54 beats per minute with no acute ST-T changes. Acute cholecystitis Laboratory evaluation revealed leukocytosis of 12.8 CT abdomen pelvis with contrast revealed distended gallbladder with questionable minimal pericholecystic inflammatory change consider acute cholecystitis. Right upper quadrant ultrasound was obtained which showed nonspecific trace pericholecystic fluid but with normal appearing gallbladder with no cholelithiasis or sonographic Smith sign to suggest acute cholecystitis. General surgery consultation Continue Zosyn perc cholecystostomy per surgeon Non ST elevation SD versus demand ischemia Cardiology consult. heparin gtt when inr <2. History of CAD status post CABG in the past Chest x-ray revealed no acute cardiopulmonary disease Troponin was mildly elevated at 0.107 followed by 0.331. BNP 3050. Cardiology plans cardiac catheterization Bacteremia Streptococcus gallolyticus ssp pasteurianus of blood culture July 15 Possible due to acute cholecystitis Continue Zosyn , dc vancomycin per from cyst Repeat blood culture 07/17 pending Pulmonary Embolism Continue with IV heparin Paroxysmal atrial fibrillation start heparin drip. Reversal for Coumadin for potential intervention. Heparin drip when INR goes below 2 Dehydration, hypo magnesemia BUN of 28 magnesium 0.9 otherwise unremarkable. Patient received IV fluid bolus and magnesium supplementation type 2 diabetes Patient is on sliding scale a.c. q.h.s. Glucose is well controlled Hypertension On hydralazine 25 mg t.i.d. p.o. Code status full code Subjective Date/time seen: 07/19/24 13:51 Interval history: HPI: 83-year-old woman with CAD status post CABG (CHRISTIAN to LAD, SVG sequential to OM1 and 2, and SVG to diagonal), paroxysmal atrial fibrillation, mild aortic stenosis, and history of DVT/PE presents with nausea, vomiting, diarrhea, and upper abdominal pain. Her last meal was yesterday afternoon in approximately 6 hours afterwards, she started to have nausea quickly followed by severe vomiting as well as diarrhea with upper abdominal pain both in the epigastric, upper right, as well as upper left quadrant pain. She feels better this morning after antinausea medication. Her vomiting has slowed down as well as her diarrhea. Her upper abdominal pain is meal grinder tender however is much alleviated compared to yesterday. Previous to this she was able to ambulate without any anginal equivalent symptoms. Patient was seen during the morning rounds today. Feeling better. No sob or chest pain No nausea or vomiting. Review of Systems Review of Systems: - CONSTITUTIONAL: Denies weight loss, fever and chills. - HEENT: Denies changes in vision and hearing - RESPIRATORY: Denies SOB and reports chronic cough. - CV: Denies palpitations and CP. - GI: reports abdominal pain, nausea, vomiting and diarrhea. - : Denies dysuria and urinary frequency. - MSK: Denies myalgia and joint pain. - SKIN: Denies rash and pruritus. - NEUROLOGICAL: Denies headache and syncope. - PSYCHIATRIC: Denies recent changes in mood. Denies anxiety and depression. All systems reviewed & are unremarkable except as noted in HPI and below Exam Narrative: GENERAL: Pleasant, in no acute distress. Well-nourished. - EYES: EOMI. Anicteric. - HENT: Moist mucous membranes. - LUNGS: Clear to auscultation bilaterally, no wheezing, rhonchi, or rales. - CARDIOVASCULAR: Regular rate and rhythm. No murmur. No JVD. - ABDOMEN: Soft, epigastric tender and non-distended. No palpable masses. Status post cholecystotomy - EXTREMITIES: No edema. Peripheral pulses 2+. Non-tender. - NEUROLOGIC: No focal neurological deficits. CN II-XII grossly intact. - PSYCHIATRIC: Awake, Alert and oriented x 3. Appropriate mood and affect. - SKIN: No rashes or lesions. Warm. - LYMPH: No cervical lymphadenopathy. Objective Data Vital Signs Vital Signs: Vital Signs - 24 hr 07/18/24 14:00 07/18/24 15:35 07/18/24 16:00 Temperature 36.5 C Pulse Rate 63 63 64 Respiratory Rate 19 20 Blood Pressure 147/63 H Pulse Oximetry 98 97 Oxygen Delivery Nasal Cannula Oxygen Flow Rate 2 07/18/24 16:00 07/18/24 18:00 07/18/24 19:45 Temperature 36.4 C Pulse Rate 64 66 64 Respiratory Rate 18 Blood Pressure 138/54 L Pulse Oximetry 97 Oxygen Delivery Oxygen Flow Rate 07/18/24 20:00 07/18/24 20:08 07/18/24 20:40 Temperature Pulse Rate 66 64 64 Respiratory Rate 18 Blood Pressure Pulse Oximetry 96 Oxygen Delivery Nasal Cannula Oxygen Flow Rate 2 07/18/24 20:42 07/18/24 22:00 07/18/24 23:41 Temperature 37.0 C Pulse Rate 59 L 60 Respiratory Rate 19 Blood Pressure 145/61 H Pulse Oximetry 96 98 Oxygen Delivery Nasal Cannula Oxygen Flow Rate 2 07/18/24 23:45 07/19/24 00:00 07/19/24 02:00 Temperature Pulse Rate 61 60 59 L Respiratory Rate 18 Blood Pressure Pulse Oximetry 97 Oxygen Delivery Nasal Cannula Oxygen Flow Rate 2 07/19/24 03:44 07/19/24 04:00 07/19/24 04:36 Temperature 37.2 C Pulse Rate 64 58 L 62 Respiratory Rate 18 19 Blood Pressure 147/63 H Pulse Oximetry 97 100 Oxygen Delivery Nasal Cannula Oxygen Flow Rate 2 07/19/24 06:00 07/19/24 08:00 07/19/24 08:00 Temperature Pulse Rate 58 L Respiratory Rate Blood Pressure Pulse Oximetry 97 97 Oxygen Delivery Nasal Cannula Nasal Cannula Oxygen Flow Rate 2 2 07/19/24 08:00 07/19/24 08:18 07/19/24 11:15 Temperature 37.0 C Pulse Rate 57 L 61 54 L Respiratory Rate 18 18 Blood Pressure 148/60 H 129/59 L Pulse Oximetry 97 93 Oxygen Delivery Nasal Cannula Oxygen Flow Rate 1 07/19/24 11:32 07/19/24 11:45 07/19/24 12:00 Temperature Pulse Rate 55 L 55 L 55 L Respiratory Rate 21 H 12 18 Blood Pressure 135/60 127/60 134/58 L Pulse Oximetry 93 92 93 Oxygen Delivery Nasal Cannula Nasal Cannula Nasal Cannula Oxygen Flow Rate 1 1 1 07/19/24 12:00 07/19/24 12:30 07/19/24 12:59 Temperature 36.6 C 36.6 C Pulse Rate 56 L 61 Respiratory Rate 16 18 Blood Pressure 139/55 L 141/56 H Pulse Oximetry 97 99 100 Oxygen Delivery Nasal Cannula Oxygen Flow Rate 2 07/19/24 13:47 Temperature 36.5 C Pulse Rate 58 L Respiratory Rate 16 Blood Pressure 148/52 H Pulse Oximetry 96 Oxygen Delivery Oxygen Flow Rate Intake/Output Intake/Output: Intake & Output 07/16/24 07/17/24 07/18/24 07/19/24 23:59 23:59 23:59 23:59 Intake Total 800 1030 2070.0 433.1 Output Total 5183 522 9780 651 Balance -600 80 929.0 -217.9 Meds/Results Medications: Active Medications Generic Name Dose Route Start Last Admin Trade Name Freq PRN Reason Stop Dose Admin Albuterol 2 puff 07/15/24 12:39 Albuterol Sulfate (*Sp) Aerosol 1 Puff INHALATION QIDRT PRN shortness of breath or wheezing Amlodipine Besylate 10 mg 07/16/24 09:00 07/19/24 09:26 Amlodipine Besylate 10 Mg Tablet PO 10 mg DAILY SAMUEL Administration Amoxicillin/Clavulanate Potassium 1 tablet 07/20/24 06:00 Amoxicillin/Clavulanate K 500-125 Mg Tab PO 07/24/24 22:01 Q8HR SAMUEL Aspirin 81 mg 07/16/24 09:00 07/19/24 09:26 Aspirin 81 Mg Enteric Tablet PO 81 mg DAILY SAMUEL Administration Atorvastatin Calcium 80 mg 07/15/24 18:00 07/18/24 17:12 Atorvastatin 40 Mg Tablet PO 80 mg QPM SAMUEL Administration Clopidogrel Bisulfate 75 mg 07/20/24 09:00 Clopidogrel Bisulfate 75 Mg Tablet PO QAM [facility] Dextrose 12.5 gm 07/15/24 12:49 Dextrose 50% 25 Gm/50 Ml Syringe IV PUSH PRN PRN Hypoglycemia Protocol Ferrous Sulfate 325 mg 07/16/24 09:00 07/19/24 13:00 Ferrous Sulfate [address] BY MOUTH 325 mg DAILY SAMUEL Administration Glucagon 1 mg 07/15/24 12:49 Glucagon For Inj 1 Mg Vial IM PRN PRN Hypoglycemia Protocol Glucose 15 gm 07/15/24 12:49 Glucose Oral Gel 15 Gm Of Glucse In 37.5 Gm Tube PO PRN PRN Hypoglycemia Protocol Heparin Sodium (Porcine) 4,000 units 07/17/24 18:51 07/18/24 03:04 Heparin Sodium 5,000 Units/Ml Vial IV PUSH 4,000 units PRN PRN Administration aPTT less than 55 seconds Heparin Sodium (Porcine) 2,500 units 07/17/24 18:51 07/18/24 17:12 Heparin Sodium 5,000 Units/Ml Vial IV PUSH 2,500 units PRN PRN Administration aPTT 55 - 70 seconds Hydralazine HCl 25 mg 07/15/24 13:00 07/19/24 13:00 Hydralazine Hcl 25 Mg Tablet PO 25 mg TID SAMUEL Administration Dextrose 1,000 mls @ 100 mls/hr 07/15/24 12:49 Dextrose 5% 1,000 Ml IVPB PRN PRN Hypoglycemia Protocol Piperacillin/Tazobactam/Dextrose 3.375 gm in 50 mls @ 100 mls/hr 07/15/24 21:00 07/19/24 09:25 Zosyn 3.375 Gm/Ns 50 Ml IVPB 07/19/24 23:59 100 mls/hr Q6H SAMUEL Administration Heparin Sodium/Dextrose 25,000 units in 250 mls @ 12 mls/hr 07/17/24 18:55 07/19/24 08:20 Heparin Sodium/D5w 100 Units/Ml IV CONT 1,200 units/hr .[id number] SAMUEL 12 mls/hr Titration Protocol 1,200 UNITS/HR Sodium Chloride 1,000 mls @ 125 mls/hr 07/19/24 11:09 07/19/24 13:00 Normal Saline Iv IV CONT 07/19/24 19:08 125 mls/hr .Q8H ONE Administration Insulin Aspart 2 - 5 units 07/15/24 17:00 07/19/24 12:59 Insulin Aspart (*Bkc) 100 Units/Ml SUB-Q Not Given TIDWM SAMUEL Protocol Insulin Aspart 1 - 2 units 07/15/24 21:00 07/18/24 20:08 Insulin Aspart (*Bkc) 100 Units/Ml SUB-Q Not Given HS SAMUEL Protocol Latanoprost 1 drop 07/15/24 21:00 07/18/24 20:08 Latanoprost 0.005% Op Soln 2.5 Ml Btl EACH EYE 1 drop HS SAMUEL Administration Melatonin 3 mg 07/19/24 01:05 07/19/24 01:28 Melatonin 3 Mg Tablet PO 3 mg HS SAMUEL Administration Metoprolol Tartrate 50 mg 07/16/24 21:00 07/19/24 09:26 Metoprolol Tartrate 50 Mg Tab PO 50 mg Q12HR SAMUEL Administration Metoprolol Tartrate 5 mg 07/16/24 14:48 07/16/24 15:34 Metoprolol Tartrate Inj 5 Mg/5 Ml Vial IV PUSH 5 mg Q4H PRN Administration Tachycardia Nitroglycerin 0.4 mg 07/16/24 08:26 07/16/24 08:55 Nitroglycerin Sl 0.4 Mg Tablet SUBLINGUAL 0.4 mg Q5MIN PRN Administration Chest Pain Ondansetron HCl 4 mg 07/15/24 09:35 07/15/24 12:18 Ondansetron Inj 4 Mg/2 Ml Vial IV PUSH 4 mg Q4H PRN Administration Nausea Pantoprazole Sodium 40 mg 07/16/24 09:00 07/19/24 09:26 Pantoprazole 40 Mg Tablet PO 40 mg QAM SAMUEL Administration Radiology Results: ITS Impressions Abdomen/Pelvis CT 07/15/24 06:05 Impression: Distended gallbladder with questionable minimal pericholecystic inflammatory change. Consider acute cholecystitis. Consider right upper quadrant ultrasound for further evaluation. Upper Quadrant Ultrasound 07/15/24 08:13 IMPRESSION: 1. Nonspecific trace pericholecystic fluid but with normal-appearing gallbladder with no cholelithiasis or sonographic Smith sign to suggest acute cholecystitis. 2. Likely age-related mild to moderate diffuse right renal cortical atrophy. Chest X-Ray 07/15/24 09:01 IMPRESSION: No acute pulmonary pathology. Chest/Abdomen/Pelvis CT 07/16/24 10:12 IMPRESSION: CHEST: 1. Right pleural effusion. 2. No evidence of pneumonia or pneumothorax seen. ABDOMEN/PELVIS: 1. Distended gallbladder with tiny hyperdensities seen posterior in the gallbladder suggestive of stones. Ultrasound evaluation advised. Surrounding fluid is seen which may indicate cholecystitis. Clinical correlation advised. 2. Residual contrast seen in the urinary bladder. 3. No evidence of appendicitis, diverticulitis or intestinal obstruction. Cholecystostomy 07/17/24 15:27 IMPRESSION: 1. Successful ultrasound-guided cholecystostomy tube placement. 2. 20 mL bile was sent for aerobic, anaerobic, and fungal cultures. 3. The catheter will be managed by Dr. Mar. A catheter cholangiogram may be performed not less than 48 hours after tube placement if clinically indicated to assess cystic duct patency. If cholecystectomy is not eventually performed and the infectious episode has resolved, the tube may be removed over a guidewire, preferably not less than 3 weeks after placement to allow time for a mature catheter tract to form to prevent bile leakage and peritonitis. Labs Labs: Laboratory Results - last 24 hr 07/18/24 07/18/24 07/18/24 15:00 15:05 20:02 PT INR APTT 53.6 H POC Capillary Glucose 204 H 193 H 07/18/24 07/19/24 07/19/24 23:49 07:36 07:40 PT 15.5 H INR 1.2 APTT 140.9 H 85.0 H POC Capillary Glucose 128 H 07/19/24 12:56 PT INR APTT POC Capillary Glucose 167 H
[2024-07-19 14:46] LABS: Partial Thromboplastin Time 28.7 Seconds (22.3-36.8)
[2024-07-19 15:49] LABS: Glucose Point of Care 284 mg/dl (65-105)
[2024-07-19] MEDS: INSULIN ASPART (*BKC) 100 UNITS/ML SUB-Q ×2 (17:14→22:19)
[2024-07-19] MEDS: ATORVASTATIN 40 MG TABLET 80 MG PO (17:14)
[2024-07-19] MEDS: HEPARIN SOD/D5W 100 UNITS/ML 25,000 UNITS/250 ML BAG 12 UNITS IV CONT (19:05)
[2024-07-19 21:18] LABS: Glucose Point of Care 220 mg/dl (65-105)
[2024-07-19] MEDS: LATANOPROST 0.005% OP SOLN 2.5 ML BTL 1 DROP EACH EYE (22:20)
[2024-07-19] MEDS: ACETAMINOPHEN 325 MG TABLET 650 MG PO (22:34)
[2024-07-20] VITALS (10 sets, daily range): BP systolic 136–157; BP diastolic 54–63; PULSE 54–60; RESP 13–18; TEMP 36.2–36.7; O2SAT 92–97
[2024-07-20 01:20] LABS: Partial Thromboplastin Time 70.2 Seconds (22.3-36.8)
[2024-07-20] MEDS: HEPARIN SODIUM 5,000 UNITS/ML VIAL 2500 UNITS IV PUSH (01:28)
[2024-07-20] MEDS: AMOXICILLIN/CLAVULANATE K 500-125 MG TAB 1 TABLET PO ×3 (05:36→21:53)
--- NOTE | 2024-07-20 07:07 | PM.PNCARD ---
Progress Note: A&P Assessment and Plan (1) Elevated troponin: Code(s): R79.89 - Other specified abnormal findings of blood chemistry Status: Acute Assessment and Plan: Non-STEMI (2) Paroxysmal atrial fibrillation: Code(s): I48.0 - Paroxysmal atrial fibrillation Status: Acute Assessment and Plan: On anticoagulation (3) Hyperlipidemia LDL goal <55: Code(s): E78.5 - Hyperlipidemia, unspecified Status: Acute Assessment and Plan: Continue statin (4) Mild aortic stenosis: Code(s): I35.0 - Nonrheumatic aortic (valve) stenosis Status: Acute Assessment and Plan: Not significant to this point (5) HTN (hypertension): Qualifiers: Hypertension type: essential hypertension Qualified Code(s): I10 - Essential (primary) hypertension Code(s): I10 - Essential (primary) hypertension Status: Acute Assessment and Plan: BP reasonably controlled Plan 83-year-old woman with CAD status post CABG (CHRISTIAN to LAD, SVG sequential to OM1 and 2, and SVG to diagonal), paroxysmal atrial fibrillation, mild aortic stenosis, and history of DVT/PE presents with nausea, vomiting, diarrhea, and upper abdominal pain NSTEMI -Given NSTEMI, recommended [facility]. As patient has improved from her acute cholecystitis and last blood cultures from 07/17 remain negative Left heart catheterization stated show significant disease as above. Plan is outpatient PCI to the RCA. Does not need to happen as an inpatient especially given her recent bacteremia -Continue ASA 81mg once daily. Continue high intensity statin. Continue beta shira. Bacteremia -On antibiotics as per primary team. Acute cholecystitis -S/p percutaneous cholecystostomy 07/17. CAD status post CABG -Continue ASA 81mg once daily. Continue high intensity statin. Continue beta shira. Paroxysmal atrial fibrillation with RVR -continue metoprolol -on heparin for now. Can resume warfarin if no further invasive inpatient workup needed a surgical perspective Hyperlipidemia -Continue Atorvastatin 40 mg every evening Hypertension -Continue Amlodipine, Hydralazine, Metoprolol. Recommendations and plan discussed with Hospitalist. Subjective Date/time seen: 07/20/24 07:07 Interval history: Reason for visit: NSTEMI HPI: 83-year-old woman with CAD status post CABG (CHRISTIAN to LAD, SVG sequential to OM1 and 2, and SVG to diagonal), paroxysmal atrial fibrillation, mild aortic stenosis, and history of DVT/PE presents with nausea, vomiting, diarrhea, and upper abdominal pain. Her last meal was yesterday afternoon in approximately 6 hours afterwards, she started to have nausea quickly followed by severe vomiting as well as diarrhea with upper abdominal pain both in the epigastric, upper right, as well as upper left quadrant pain. She feels better this morning after antinausea medication. Her vomiting has slowed down as well as her diarrhea. 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 Previous to this she was able to ambulate without any anginal equivalent symptoms. Date of service 07/16: Troponins have samantha to 5.9. Reports chest pain this morning. Had run of SVT this morning. Date of service 07/17: No chest pain this morning. Reports feeling hungry, otherwise okay. Tele with paroxysmal AFIB with RVR. Date of service 07/18: No chest pain or shortness of breath. Nausea is resolved. No diarrhea. Date of service 07/19: Feeling well this morning. No chest pain. Date of service 07/20/2024: Anxious to go home. Few is okay and denies any chest pain or shortness of breath. No groin pain Review of Systems Review of Systems: All systems reviewed & are unremarkable except as noted in HPI and below Constitutional: Constitutional: Denies body ache(s) Eyes: Eyes: Denies blurry vision Cardiovascular: Cardiovascular: Denies chest pain Respiratory: Respiratory: Denies chest congestion Gastrointestinal: Gastrointestinal: Denies bloating Genitourinary: Genitourinary: Denies hematuria Musculoskeletal: Musculoskeletal: Denies arthralgias Integumentary/Breasts: Skin/Breast: Denies dry skin Neurologic: Denies Abnormal speech present Psychiatric: Psychiatric: Denies confusion Endocrine: Endocrine: Denies excessive sweating Hematologic/Lymphatic: Hematologic/Lymphatic: Denies easy bruising Allergic/Immunologic: Allergic/Immunologic: Denies GI upset with certain foods Exam Narrative: Appears stated age Const: General: comfortable and no acute distress HENMT: Mouth: Yes moist mucous membranes Eyes: General: appearance normal, both eyes and all related structures Sclera: sclerae normal Neck: Neck: supple and no JVD Resp: Effort & Inspection: normal respiratory effort Auscultation: clear to auscultation bilaterally Cardio: Rate: regular rate Rhythm: regular rhythm Heart sounds: no murmurs Other: Right groin is free of hematoma, ecchymosis or bruit GI: Inspection: non-distended GI Palp: Yes Soft to palpation Other: Per abby drain in place Skin: General skin exam: normal color Neuro: Speech: normal speech Extrem: General: no pedal edema Psych: Mental Status: mental status grossly normal Affect: normal affect Objective Data Vital Signs Vital Signs: Vital Signs - 24 hr 07/19/24 08:00 07/19/24 08:00 07/19/24 08:00 Temperature Pulse Rate 57 L Respiratory Rate Blood Pressure Pulse Oximetry 97 97 Oxygen Delivery Nasal Cannula Nasal Cannula Oxygen Flow Rate 2 2 07/19/24 08:18 07/19/24 11:15 07/19/24 11:32 Temperature 37.0 C Pulse Rate 61 54 L 55 L Respiratory Rate 18 18 21 H Blood Pressure 148/60 H 129/59 L 135/60 Pulse Oximetry 97 93 93 Oxygen Delivery Nasal Cannula Nasal Cannula Oxygen Flow Rate 1 1 07/19/24 11:45 07/19/24 12:00 07/19/24 12:00 Temperature Pulse Rate 55 L 55 L Respiratory Rate 12 18 Blood Pressure 127/60 134/58 L Pulse Oximetry 92 93 97 Oxygen Delivery Nasal Cannula Nasal Cannula Nasal Cannula Oxygen Flow Rate 1 1 2 07/19/24 12:30 07/19/24 12:59 07/19/24 13:47 Temperature 36.6 C 36.6 C 36.5 C Pulse Rate 56 L 61 58 L Respiratory Rate 16 18 16 Blood Pressure 139/55 L 141/56 H 148/52 H Pulse Oximetry 99 100 96 Oxygen Delivery Oxygen Flow Rate 07/19/24 14:00 07/19/24 15:09 07/19/24 16:00 Temperature 36.3 C L 36.4 C L Pulse Rate 61 59 L 57 L Respiratory Rate 18 19 Blood Pressure 137/58 L 128/53 L Pulse Oximetry 97 98 Oxygen Delivery Oxygen Flow Rate 07/19/24 16:00 07/19/24 16:00 07/19/24 17:00 Temperature 36.7 C Pulse Rate 57 L 61 Respiratory Rate 20 Blood Pressure 129/60 Pulse Oximetry 97 96 Oxygen Delivery Nasal Cannula Oxygen Flow Rate 2 07/19/24 18:00 07/19/24 19:00 07/19/24 20:00 Temperature 36.8 C Pulse Rate 63 67 Respiratory Rate 17 Blood Pressure 148/65 H Pulse Oximetry 96 95 Oxygen Delivery Nasal Cannula Oxygen Flow Rate 1 07/19/24 20:00 07/19/24 22:00 07/19/24 22:19 Temperature Pulse Rate 64 68 68 Respiratory Rate Blood Pressure Pulse Oximetry Oxygen Delivery Oxygen Flow Rate 07/19/24 23:42 07/20/24 00:00 07/20/24 00:00 Temperature 36.8 C Pulse Rate 59 L 55 L Respiratory Rate 17 Blood Pressure 130/58 L Pulse Oximetry 92 93 Oxygen Delivery Room Air Oxygen Flow Rate 07/20/24 02:00 07/20/24 04:00 07/20/24 04:00 Temperature 36.2 C L Pulse Rate 54 L 56 L Respiratory Rate 17 Blood Pressure 136/54 L Pulse Oximetry 92 92 Oxygen Delivery Room Air Oxygen Flow Rate 07/20/24 04:00 07/20/24 06:00 Temperature Pulse Rate 55 L 55 L Respiratory Rate Blood Pressure Pulse Oximetry Oxygen Delivery Oxygen Flow Rate Intake/Output Intake/Output: Intake & Output 07/17/24 07/18/24 07/19/24 07/20/24 23:59 23:59 23:59 23:59 Intake Total 1030 2070.0 1843.5 76.4 Output Total 950 1141 711 Balance 80 929.0 1132.5 76.4 Meds/Results Medications: Active Medications Generic Name Dose Route Start Last Admin Trade Name Freq PRN Reason Stop Dose Admin Acetaminophen 650 mg 07/19/24 22:23 07/19/24 22:34 Acetaminophen 325 Mg Tablet PO 650 mg Q4H PRN Administration Pain Rated 1-3 Albuterol 2 puff 07/15/24 12:39 Albuterol Sulfate (*Sp) Aerosol 1 Puff INHALATION QIDRT PRN shortness of breath or wheezing Amlodipine Besylate 10 mg 07/16/24 09:00 07/19/24 09:26 Amlodipine Besylate 10 Mg Tablet PO 10 mg DAILY SAMUEL Administration Amoxicillin/Clavulanate Potassium 1 tablet 07/20/24 06:00 07/20/24 05:36 Amoxicillin/Clavulanate K 500-125 Mg Tab PO 07/24/24 22:01 1 tablet Q8HR SAMUEL Administration Aspirin 81 mg 07/16/24 09:00 07/19/24 09:26 Aspirin 81 Mg Enteric Tablet PO 81 mg DAILY SAMUEL Administration Atorvastatin Calcium 80 mg 07/15/24 18:00 07/19/24 17:14 Atorvastatin 40 Mg Tablet PO 80 mg QPM SAMUEL Administration Clopidogrel Bisulfate 75 mg 07/20/24 09:00 Clopidogrel Bisulfate 75 Mg Tablet PO QAM SAMUEL Dextrose 12.5 gm 07/15/24 12:49 Dextrose 50% 25 Gm/50 Ml Syringe IV PUSH PRN PRN Hypoglycemia Protocol Ferrous Sulfate 325 mg 07/16/24 09:00 07/19/24 13:00 Ferrous Sulfate [address] BY MOUTH 325 mg DAILY SAMUEL Administration Glucagon 1 mg 07/15/24 12:49 Glucagon For Inj 1 Mg Vial IM PRN PRN Hypoglycemia Protocol Glucose 15 gm 07/15/24 12:49 Glucose Oral Gel 15 Gm Of Glucse In 37.5 Gm Tube PO PRN PRN Hypoglycemia Protocol Heparin Sodium (Porcine) 4,000 units 07/17/24 18:51 07/18/24 03:04 Heparin Sodium 5,000 Units/Ml Vial IV PUSH 4,000 units PRN PRN Administration aPTT less than 55 seconds Heparin Sodium (Porcine) 2,500 units 07/17/24 18:51 07/20/24 01:28 Heparin Sodium 5,000 Units/Ml Vial IV PUSH 2,500 units PRN PRN Administration aPTT 55 - 70 seconds Hydralazine HCl 25 mg 07/15/24 13:00 07/19/24 16:39 Hydralazine Hcl 25 Mg Tablet PO 25 mg TID SAMUEL Administration Dextrose 1,000 mls @ 100 mls/hr 07/15/24 12:49 Dextrose 5% 1,000 Ml IVPB PRN PRN Hypoglycemia Protocol Heparin Sodium/Dextrose 25,000 units in 250 mls @ 13 mls/hr 07/17/24 18:55 07/20/24 01:27 Heparin Sodium/D5w 100 Units/Ml IV CONT 1,300 units/hr .[id number] [facility] 13 mls/hr Titration Protocol 1,300 UNITS/HR Insulin Aspart 2 - 5 units 07/15/24 17:00 07/19/24 17:14 Insulin Aspart (*Bkc) 100 Units/Ml SUB-Q 3 units TIDWM SAMUEL Administration Protocol Insulin Aspart 1 - 2 units 07/15/24 21:00 07/19/24 22:19 Insulin Aspart (*Bkc) 100 Units/Ml SUB-Q 1 units HS SAMUEL Administration Protocol Latanoprost 1 drop 07/15/24 21:00 07/19/24 22:20 Latanoprost 0.005% Op Soln 2.5 Ml Btl EACH EYE 1 drop HS SAMUEL Administration Melatonin 3 mg 07/19/24 01:05 07/19/24 22:20 Melatonin 3 Mg Tablet PO 3 mg HS SAMUEL Administration Metoprolol Tartrate 50 mg 07/16/24 21:00 07/19/24 22:19 Metoprolol Tartrate 50 Mg Tab PO 50 mg Q12HR SAMUEL Administration Metoprolol Tartrate 5 mg 07/16/24 14:48 07/16/24 15:34 Metoprolol Tartrate Inj 5 Mg/5 Ml Vial IV PUSH 5 mg Q4H PRN Administration Tachycardia Nitroglycerin 0.4 mg 07/16/24 08:26 07/16/24 08:55 Nitroglycerin Sl 0.4 Mg Tablet SUBLINGUAL 0.4 mg Q5MIN PRN Administration Chest Pain Ondansetron HCl 4 mg 07/15/24 09:35 07/15/24 12:18 Ondansetron Inj 4 Mg/2 Ml Vial IV PUSH 4 mg Q4H PRN Administration Nausea Pantoprazole Sodium 40 mg 07/16/24 09:00 07/19/24 09:26 Pantoprazole 40 Mg Tablet PO 40 mg QAM SAMUEL Administration Radiology Results: ITS Impressions Abdomen/Pelvis CT 07/15/24 06:05 Impression: Distended gallbladder with questionable minimal pericholecystic inflammatory change. Consider acute cholecystitis. Consider right upper quadrant ultrasound for further evaluation. Upper Quadrant Ultrasound 07/15/24 08:13 IMPRESSION: 1. Nonspecific trace pericholecystic fluid but with normal-appearing gallbladder with no cholelithiasis or sonographic Smith sign to suggest acute cholecystitis. 2. Likely age-related mild to moderate diffuse right renal cortical atrophy. Chest X-Ray 07/15/24 09:01 IMPRESSION: No acute pulmonary pathology. Chest/Abdomen/Pelvis CT 07/16/24 10:12 IMPRESSION: CHEST: 1. Right pleural effusion. 2. No evidence of pneumonia or pneumothorax seen. ABDOMEN/PELVIS: 1. Distended gallbladder with tiny hyperdensities seen posterior in the gallbladder suggestive of stones. Ultrasound evaluation advised. Surrounding fluid is seen which may indicate cholecystitis. Clinical correlation advised. 2. Residual contrast seen in the urinary bladder. 3. No evidence of appendicitis, diverticulitis or intestinal obstruction. Cholecystostomy 07/17/24 15:27 IMPRESSION: 1. Successful ultrasound-guided cholecystostomy tube placement. 2. 20 mL bile was sent for aerobic, anaerobic, and fungal cultures. 3. The catheter will be managed by Dr. Mar. A catheter cholangiogram may be performed not less than 48 hours after tube placement if clinically indicated to assess cystic duct patency. If cholecystectomy is not eventually performed and the infectious episode has resolved, the tube may be removed over a guidewire, preferably not less than 3 weeks after placement to allow time for a mature catheter tract to form to prevent bile leakage and peritonitis. Labs Labs: Laboratory Results - last 24 hr 07/19/24 07/19/24 07/19/24 07:36 07:40 12:56 PT 15.5 H INR 1.2 APTT 85.0 H POC Capillary Glucose 128 H 167 H 07/19/24 07/19/24 07/19/24 14:16 15:18 21:16 PT INR APTT 28.7 POC Capillary Glucose 284 H 220 H 07/20/24 00:53 PT INR APTT 70.2 H POC Capillary Glucose Cardiac catheterization 07/19/2024 1. Left main: The left main coronary artery is widely patent without any significant obstructive disease. 2. Left anterior descending: Heavy calcifications seen in the proximal LAD. There is moderate 50-60% ostial LAD disease. There is mild disease in the mid portion. There is retrograde filling into the CHRISTIAN upon contrast injection of the [place] left coronary system. The first diagonal branch is heavily calcified and has significant 90% ostial-proximal disease; there is significant disease in the mid portion as well; competitive filling is seen in the diagonal branch. 3. Left circumflex: Heavy calcifications seen in the proximal LCX. There is 90% ostial LCX stenosis. The LCX is PARTY COORDINATOR in the mid portion. 4. Right coronary artery: The RCA is the dominant vessel. There is moderate ostial disease. There was no pressure dampening with engagement of the catheter. Calcifications seen in the proximal-mid portion of the RCA. In the midportion, there is an 80% stenosis. There is diffuse mild disease in the mid to distal portion. The proximal portion of the RPDA has moderate disease. 5. Bypass graft angiography A. CHRISTIAN to LAD is patent. B. SVG to diagonal is patent. C. Sequential SVG to OM1 and OM2 is patent. OM-1 is a small caliber vessel that is diffusely disease. Immediately proximal to the anastomosis site on OM-2, there is a 99% stenosis.
[2024-07-20 07:30] LABS: Glucose Point of Care 134 mg/dl (65-105)
[2024-07-20 09:10] LABS: Partial Thromboplastin Time 113.7 Seconds (22.3-36.8)
--- NOTE | 2024-07-20 09:25 | P.PNIM_ITS ---
Progress Note: A&P Assessment and Plan (1) Anxiety: Code(s): F41.9 - Anxiety disorder, unspecified Status: Acute Assessment and Plan: Stable on current medications, will continue current treatment. (2) Depression: Code(s): F32.9 - Major depressive disorder, single episode, unspecified Status: Acute Assessment and Plan: Stable on current medications, will continue current treatment. (3) HTN (hypertension): Qualifiers: Hypertension type: essential hypertension Qualified Code(s): I10 - Essential (primary) hypertension Code(s): I10 - Essential (primary) hypertension Status: Acute Assessment and Plan: Stable on current medications, will continue current treatment. (4) CAD (coronary artery disease): Code(s): I25.10 - Atherosclerotic heart disease of [place] coronary artery without angina pectoris Status: Acute Assessment and Plan: Stable on current medications, will continue current treatment. (5) Troponin level elevated: Code(s): R79.89 - Other specified abnormal findings of blood chemistry Status: Acute Assessment and Plan: Stable on current medications, will continue current treatment. (6) Hx of CABG: Code(s): Z95.1 - Presence of aortocoronary bypass graft Status: Acute Assessment and Plan: Stable on current medications, will continue current treatment. (7) Paroxysmal atrial fibrillation: Code(s): I48.0 - Paroxysmal atrial fibrillation Status: Acute Assessment and Plan: Stable on current medications, will continue current treatment. (8) Pulmonary embolism: Code(s): I26.99 - Other pulmonary embolism without acute cor pulmonale Status: Acute Assessment and Plan: On Iv heparin, monitor closely. (9) Diabetes 1.5, managed as type 2: Code(s): E13.9 - Other specified diabetes mellitus without complications Status: Acute Assessment and Plan: Stable on current medications, will continue current treatment. (10) Abdominal pain, epigastric: Code(s): R10.13 - Epigastric pain Status: Acute Assessment and Plan: S/post cholecystotomy (11) GERD (gastroesophageal reflux disease): Code(s): K21.9 - Gastro-esophageal reflux disease without esophagitis Status: Acute Assessment and Plan: Stable on current medications, will continue current treatment. 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 Plan This is a 83-year-old female who presents to the ED with nausea vomiting and epigastric pain. She reported pain started about 10:00 p.m. last night. Continue to worsen and hence called EMS. He also reports some nausea vomiting and diarrhea associated with this pain. When EMS arrived patient was saturating 80% on room air and hence was placed on 2 L via nasal cannula. Upon arrival to the ED patient was saturating 93% on room air. Received IV Zofran 1 time dose per EMS. No chest pain reported. EKG showed sinus bradycardia at a rate of 54 beats per minute with no acute ST-T changes. Acute cholecystitis Laboratory evaluation revealed leukocytosis of 12.8 CT abdomen pelvis with contrast revealed distended gallbladder with questionable minimal pericholecystic inflammatory change consider acute cholecystitis. Right upper quadrant ultrasound was obtained which showed nonspecific trace pericholecystic fluid but with normal appearing gallbladder with no cholelithiasis or sonographic Smith sign to suggest acute cholecystitis. General surgery consultation Continue Zosyn perc cholecystostomy per surgeon Non ST elevation SC versus demand ischemia Cardiology consult. heparin gtt when inr <2. History of CAD status post CABG in the past Chest x-ray revealed no acute cardiopulmonary disease Troponin was mildly elevated at 0.107 followed by 0.331. BNP 3050. Cardiology plans cardiac catheterization Bacteremia Streptococcus gallolyticus ssp pasteurianus of blood culture July 15 Possible due to acute cholecystitis Continue Zosyn , dc vancomycin per from cyst Repeat blood culture 07/17 pending Pulmonary Embolism Continue with IV heparin Paroxysmal atrial fibrillation start heparin drip. Reversal for Coumadin for potential intervention. Heparin drip when INR goes below 2 Dehydration, hypo magnesemia BUN of 28 magnesium 0.9 otherwise unremarkable. Patient received IV fluid bolus and magnesium supplementation type 2 diabetes Patient is on sliding scale a.c. q.h.s. Glucose is well controlled Hypertension On hydralazine 25 mg t.i.d. p.o. Code status full code Subjective Date/time seen: 07/20/24 09:25 Interval history: Patient was seen during the morning rounds today. No sob or chest pain No abdominal pian Review of Systems Review of Systems: - CONSTITUTIONAL: Denies weight loss, fe clark and chills. - HEENT: Denies changes in vision and he aring - RESPIRATORY: Denies SOB and reports ch ronic cough. - CV: Denies palpitations and CP. - GI: reports abdominal pain, nausea, vo miting and diarrhea. - : Denies dysuria and urinary frequen cy. - MSK: Denies myalgia and joint pain. - SKIN: Denies rash and pruritus. - NEUROLOGICAL: Denies headache and sync ope. - PSYCHIATRIC: Denies recent changes in mood. Denies anxiety and depression. All systems reviewed & are unremarkable except as noted in HPI and below Exam Narrative: GENERAL: Pleasant, in no acute distress. Well-nourished. - EYES: EOMI. Anicteric. - HENT: Moist mucous membranes. - LUNGS: Clear to auscultation bilateral ly, no wheezing, rhonchi, or rales. - CARDIOVASCULAR: Regular rate and rhyth m. No murmur. No JVD. - ABDOMEN: Soft, epigastric tender and n on-distended. No palpable masses. Status post cholecystotomy - EXTREMITIES: No edema. Peripheral puls es 2+. Non-tender. - NEUROLOGIC: No focal neurological defi cits. CN II-XII grossly intact. - PSYCHIATRIC: Awake, Alert and oriented x 3. Appropriate mood and affect. - SKIN: No rashes or lesions. Warm. - LYMPH: No cervical lymphadenopathy. Objective Data Vital Signs Vital Signs: Vital Signs - 24 hr 07/19/24 11:15 07/19/24 11:32 07/19/24 11:45 Temperature Pulse Rate 54 L 55 L 55 L Respiratory Rate 18 21 H 12 Blood Pressure 129/59 L 135/60 127/60 Pulse Oximetry 93 93 92 Oxygen Delivery Nasal Cannula Nasal Cannula Nasal Cannula Oxygen Flow Rate 1 1 1 07/19/24 12:00 07/19/24 12:00 07/19/24 12:30 Temperature 36.6 C Pulse Rate 55 L 56 L Respiratory Rate 18 16 Blood Pressure 134/58 L 139/55 L Pulse Oximetry 93 97 99 Oxygen Delivery Nasal Cannula Nasal Cannula Oxygen Flow Rate 1 2 07/19/24 12:59 07/19/24 13:47 07/19/24 14:00 Temperature 36.6 C 36.5 C Pulse Rate 61 58 L 61 Respiratory Rate 18 16 Blood Pressure 141/56 H 148/52 H Pulse Oximetry 100 96 Oxygen Delivery Oxygen Flow Rate 07/19/24 15:09 07/19/24 16:00 07/19/24 16:00 Temperature 36.3 C L 36.4 C L Pulse Rate 59 L 57 L 57 L Respiratory Rate 18 19 Blood Pressure 137/58 L 128/53 L Pulse Oximetry 97 98 Oxygen Delivery Oxygen Flow Rate 07/19/24 16:00 07/19/24 17:00 07/19/24 18:00 Temperature 36.7 C Pulse Rate 61 63 Respiratory Rate 20 Blood Pressure 129/60 Pulse Oximetry 97 96 Oxygen Delivery Nasal Cannula Oxygen Flow Rate 2 07/19/24 19:00 07/19/24 20:00 07/19/24 20:00 Temperature 36.8 C Pulse Rate 67 64 Respiratory Rate 17 Blood Pressure 148/65 H Pulse Oximetry 96 95 Oxygen Delivery Nasal Cannula Oxygen Flow Rate 1 07/19/24 22:00 07/19/24 22:19 07/19/24 23:42 Temperature 36.8 C Pulse Rate 68 68 59 L Respiratory Rate 17 Blood Pressure 130/58 L Pulse Oximetry 92 Oxygen Delivery Oxygen Flow Rate 07/20/24 00:00 07/20/24 00:00 07/20/24 02:00 Temperature Pulse Rate 55 L 54 L Respiratory Rate Blood Pressure Pulse Oximetry 93 Oxygen Delivery Room Air Oxygen Flow Rate 07/20/24 04:00 07/20/24 04:00 07/20/24 04:00 Temperature 36.2 C L Pulse Rate 56 L 55 L Respiratory Rate 17 Blood Pressure 136/54 L Pulse Oximetry 92 92 Oxygen Delivery Room Air Oxygen Flow Rate 07/20/24 06:00 07/20/24 08:16 Temperature 36.6 C Pulse Rate 55 L 57 L Respiratory Rate 18 Blood Pressure 156/61 H Pulse Oximetry 96 Oxygen Delivery Oxygen Flow Rate Intake/Output Intake/Output: Intake & Output 07/17/24 07/18/24 07/19/24 07/20/24 23:59 23:59 23:59 23:59 Intake Total 1030 2070.0 1843.5 76.4 Output Total 950 1141 711 Balance 80 929.0 1132.5 76.4 Meds/Results Medications: Active Medications Generic Name Dose Route Start Last Admin Trade Name Freq PRN Reason Stop Dose Admin Acetaminophen 650 mg 07/19/24 22:23 07/19/24 22:34 Acetaminophen 325 Mg Tablet PO 650 mg Q4H PRN Administration Pain Rated 1-3 Albuterol 2 puff 07/15/24 12:39 Albuterol Sulfate (*Sp) Aerosol 1 Puff INHALATION QIDRT PRN shortness of breath or wheezing Amlodipine Besylate 10 mg 07/16/24 09:00 07/19/24 09:26 Amlodipine Besylate 10 Mg Tablet PO 10 mg DAILY SAMUEL Administration Amoxicillin/Clavulanate Potassium 1 tablet 07/20/24 06:00 07/20/24 05:36 Amoxicillin/Clavulanate K 500-125 Mg Tab PO 07/24/24 22:01 1 tablet Q8HR SAMUEL Administration Aspirin 81 mg 07/16/24 09:00 07/19/24 09:26 Aspirin 81 Mg Enteric Tablet PO 81 mg DAILY SAMUEL Administration Atorvastatin Calcium 80 mg 07/15/24 18:00 07/19/24 17:14 Atorvastatin 40 Mg Tablet PO 80 mg QPM SAMUEL Administration Clopidogrel Bisulfate 75 mg 07/20/24 09:00 Clopidogrel Bisulfate 75 Mg Tablet PO QAM [facility] Dextrose 12.5 gm 07/15/24 12:49 Dextrose 50% 25 Gm/50 Ml Syringe IV PUSH PRN PRN Hypoglycemia Protocol Ferrous Sulfate 325 mg 07/16/24 09:00 07/19/24 13:00 Ferrous Sulfate [address] BY MOUTH 325 mg DAILY SAMUEL Administration Glucagon 1 mg 07/15/24 12:49 Glucagon For Inj 1 Mg Vial IM PRN PRN Hypoglycemia Protocol Glucose 15 gm 07/15/24 12:49 Glucose Oral Gel 15 Gm Of Glucse In 37.5 Gm Tube PO PRN PRN Hypoglycemia Protocol Heparin Sodium (Porcine) 4,000 units 07/17/24 18:51 07/18/24 03:04 Heparin Sodium 5,000 Units/Ml Vial IV PUSH 4,000 units PRN PRN Administration aPTT less than 55 seconds Heparin Sodium (Porcine) 2,500 units 07/17/24 18:51 07/20/24 01:28 Heparin Sodium 5,000 Units/Ml Vial IV PUSH 2,500 units PRN PRN Administration aPTT 55 - 70 seconds Hydralazine HCl 25 mg 07/15/24 13:00 07/19/24 16:39 Hydralazine Hcl 25 Mg Tablet PO 25 mg TID SAMUEL Administration Dextrose 1,000 mls @ 100 mls/hr 07/15/24 12:49 Dextrose 5% 1,000 Ml IVPB PRN PRN Hypoglycemia Protocol Heparin Sodium/Dextrose 25,000 units in 250 mls @ 13 mls/hr 07/17/24 18:55 07/20/24 01:27 Heparin Sodium/D5w 100 Units/Ml IV CONT 1,300 units/hr .[id number] SAMUEL 13 mls/hr Titration Protocol 1,300 UNITS/HR Insulin Aspart 2 - 5 units 07/15/24 17:00 07/19/24 17:14 Insulin Aspart (*Bkc) 100 Units/Ml SUB-Q 3 units TIDWM SAMUEL Administration Protocol Insulin Aspart 1 - 2 units 07/15/24 21:00 07/19/24 22:19 Insulin Aspart (*Bkc) 100 Units/Ml SUB-Q 1 units HS SAMUEL Administration Protocol Latanoprost 1 drop 07/15/24 21:00 07/19/24 22:20 Latanoprost 0.005% Op Soln 2.5 Ml Btl EACH EYE 1 drop HS SAMUEL Administration Melatonin 3 mg 07/19/24 01:05 07/19/24 22:20 Melatonin 3 Mg Tablet PO 3 mg HS SAMUEL Administration Metoprolol Tartrate 50 mg 07/16/24 21:00 07/19/24 22:19 Metoprolol Tartrate 50 Mg Tab PO 50 mg Q12HR SAMUEL Administration Metoprolol Tartrate 5 mg 07/16/24 14:48 07/16/24 15:34 Metoprolol Tartrate Inj 5 Mg/5 Ml Vial IV PUSH 5 mg Q4H PRN Administration Tachycardia Nitroglycerin 0.4 mg 07/16/24 08:26 07/16/24 08:55 Nitroglycerin Sl 0.4 Mg Tablet SUBLINGUAL 0.4 mg Q5MIN PRN Administration Chest Pain Ondansetron HCl 4 mg 07/15/24 09:35 07/15/24 12:18 Ondansetron Inj 4 Mg/2 Ml Vial IV PUSH 4 mg Q4H PRN Administration Nausea Pantoprazole Sodium 40 mg 07/16/24 09:00 07/19/24 09:26 Pantoprazole 40 Mg Tablet PO 40 mg QAM SAMUEL Administration Radiology Results: ITS Impressions Abdomen/Pelvis CT 07/15/24 06:05 Impression: Distended gallbladder with questionable minimal pericholecystic inflammatory change. Consider acute cholecystitis. Consider right upper quadrant ultrasound for further evaluation. Upper Quadrant Ultrasound 07/15/24 08:13 IMPRESSION: 1. Nonspecific trace pericholecystic fluid but with normal-appearing gallbladder with no cholelithiasis or sonographic Smith sign to suggest acute cholecystitis. 2. Likely age-related mild to moderate diffuse right renal cortical atrophy. Chest X-Ray 07/15/24 09:01 IMPRESSION: No acute pulmonary pathology. Chest/Abdomen/Pelvis CT 07/16/24 10:12 IMPRESSION: CHEST: 1. Right pleural effusion. 2. No evidence of pneumonia or pneumothorax seen. ABDOMEN/PELVIS: 1. Distended gallbladder with tiny hyperdensities seen posterior in the gallbladder suggestive of stones. Ultrasound evaluation advised. Surrounding fluid is seen which may indicate cholecystitis. Clinical correlation advised. 2. Residual contrast seen in the urinary bladder. 3. No evidence of appendicitis, diverticulitis or intestinal obstruction. Cholecystostomy 07/17/24 15:27 IMPRESSION: 1. Successful ultrasound-guided cholecystostomy tube placement. 2. 20 mL bile was sent for aerobic, anaerobic, and fungal cultures. 3. The catheter will be managed by Dr. Mar. A catheter cholangiogram may be performed not less than 48 hours after tube placement if clinically indicated to assess cystic duct patency. If cholecystectomy is not eventually performed and the infectious episode has resolved, the tube may be removed over a guidewire, preferably not less than 3 weeks after placement to allow time for a mature catheter tract to form to prevent bile leakage and peritonitis. Labs Labs: Laboratory Results - last 24 hr 07/19/24 07/19/24 07/19/24 12:56 14:16 15:18 APTT 28.7 POC Capillary Glucose 167 H 284 H 07/19/24 07/20/24 07/20/24 21:16 00:53 07:14 APTT 70.2 H POC Capillary Glucose 220 H 134 H 07/20/24 07:29 APTT 113.7 H POC Capillary Glucose
[2024-07-20] MEDS: PANTOPRAZOLE 40 MG TABLET PO (09:51)
[2024-07-20] MEDS: FERROUS SULFATE 325 MG TABLET DR BY MOUTH (09:51)
[2024-07-20] MEDS: hydrALAZINE HCL 25 MG TABLET PO ×3 (09:51→17:36)
[2024-07-20] MEDS: amLODIPine BESYLATE 10 MG TABLET PO (09:51)
[2024-07-20] MEDS: METOPROLOL TARTRATE 50 MG TAB PO ×2 (09:51→21:53)
[2024-07-20] MEDS: CLOPIDOGREL BISULFATE 75 MG TABLET PO (09:51)
[2024-07-20] MEDS: ASPIRIN 81 MG ENTERIC TABLET PO (09:51)
[2024-07-20 11:55] LABS: Glucose Point of Care 191 mg/dl (65-105)
[2024-07-20] MEDS: ENOXAPARIN 80 MG/0.8 ML SYRINGE SUB-Q (13:08)
--- NOTE | 2024-07-20 13:52 | PM.PNGS ---
Progress Note: A&P Assessment and Plan (1) Cholecystitis: Code(s): K81.9 - Cholecystitis, unspecified Status: Acute Assessment and Plan: exam benign, cont low fat diet and drain, abx (2) CAD (coronary artery disease): Code(s): I25.10 - Atherosclerotic heart disease of [place] coronary artery without angina pectoris Status: Acute Assessment and Plan: mgmt per cardiology Subjective Subjective Date/Time Seen: 07/20/24 13:52 Interval history: feels better, tati low fat diet Review of Systems Review of Systems: All systems reviewed & are unremarkable except as noted in HPI and below Exam Const: General: cooperative, comfortable, no acute distress and ill appearing Resp: Auscultation: clear to auscultation bilaterally Cardio: Rate: regular rate Rhythm: regular rhythm GI: Inspection: normal to inspection and non-distended GI Palp: No abdominal tenderness and Yes Soft to palpation Other: abby tube c bilious drainage Objective Data Vital Signs Vital Signs: Vital Signs - 24 hr 07/19/24 14:00 07/19/24 15:09 07/19/24 16:00 Temperature 36.3 C L 36.4 C L Pulse Rate 61 59 L 57 L Respiratory Rate 18 19 Blood Pressure 137/58 L 128/53 L Pulse Oximetry 97 98 Oxygen Delivery Oxygen Flow Rate 07/19/24 16:00 07/19/24 16:00 07/19/24 17:00 Temperature 36.7 C Pulse Rate 57 L 61 Respiratory Rate 20 Blood Pressure 129/60 Pulse Oximetry 97 96 Oxygen Delivery Nasal Cannula Oxygen Flow Rate 2 07/19/24 18:00 07/19/24 19:00 07/19/24 20:00 Temperature 36.8 C Pulse Rate 63 67 Respiratory Rate 17 Blood Pressure 148/65 H Pulse Oximetry 96 95 Oxygen Delivery Nasal Cannula Oxygen Flow Rate 1 07/19/24 20:00 07/19/24 22:00 07/19/24 22:19 Temperature Pulse Rate 64 68 68 Respiratory Rate Blood Pressure Pulse Oximetry Oxygen Delivery Oxygen Flow Rate 07/19/24 23:42 07/20/24 00:00 07/20/24 00:00 Temperature 36.8 C Pulse Rate 59 L 55 L Respiratory Rate 17 Blood Pressure 130/58 L Pulse Oximetry 92 93 Oxygen Delivery Room Air Oxygen Flow Rate 07/20/24 02:00 07/20/24 04:00 07/20/24 04:00 Temperature 36.2 C L Pulse Rate 54 L 56 L Respiratory Rate 17 Blood Pressure 136/54 L Pulse Oximetry 92 92 Oxygen Delivery Room Air Oxygen Flow Rate 07/20/24 04:00 07/20/24 06:00 07/20/24 08:00 Temperature Pulse Rate 55 L 55 L Respiratory Rate Blood Pressure Pulse Oximetry 96 Oxygen Delivery Room Air Oxygen Flow Rate 07/20/24 08:00 07/20/24 08:16 07/20/24 10:00 Temperature 36.6 C Pulse Rate 57 L 57 L 58 L Respiratory Rate 18 Blood Pressure 156/61 H Pulse Oximetry 96 Oxygen Delivery Oxygen Flow Rate 07/20/24 12:45 Temperature Pulse Rate Respiratory Rate Blood Pressure Pulse Oximetry Oxygen Delivery Room Air Oxygen Flow Rate Intake/Output Intake/Output: Intake & Output 07/17/24 07/18/24 07/19/24 07/20/24 23:59 23:59 23:59 23:59 Intake Total 1030 2070.0 1843.5 556.4 Output Total 950 1141 711 Balance 80 929.0 1132.5 556.4 Meds/Results Medications: Active Medications Generic Name Dose Route Start Last Admin Trade Name Freq PRN Reason Stop Dose Admin Acetaminophen 650 mg 07/19/24 22:23 07/19/24 22:34 Acetaminophen 325 Mg Tablet PO 650 mg Q4H PRN Administration Pain Rated 1-3 Albuterol 2 puff 07/15/24 12:39 Albuterol Sulfate (*Sp) Aerosol 1 Puff INHALATION QIDRT PRN shortness of breath or wheezing Amlodipine Besylate 10 mg 07/16/24 09:00 07/20/24 09:51 Amlodipine Besylate 10 Mg Tablet PO 10 mg DAILY SAMUEL Administration Amoxicillin/Clavulanate Potassium 1 tablet 07/20/24 06:00 07/20/24 13:08 Amoxicillin/Clavulanate K 500-125 Mg Tab PO 07/24/24 22:01 1 tablet Q8HR SAMUEL Administration Aspirin 81 mg 07/16/24 09:00 07/20/24 09:51 Aspirin 81 Mg Enteric Tablet PO 81 mg DAILY SAMUEL Administration Atorvastatin Calcium 80 mg 07/15/24 18:00 07/19/24 17:14 Atorvastatin 40 Mg Tablet PO 80 mg QPM SAMUEL Administration Clopidogrel Bisulfate 75 mg 07/20/24 09:00 07/20/24 09:51 Clopidogrel Bisulfate 75 Mg Tablet PO 75 mg QAM SAMUEL Administration Dextrose 12.5 gm 07/15/24 12:49 Dextrose 50% 25 Gm/50 Ml Syringe IV PUSH PRN PRN Hypoglycemia Protocol Ferrous Sulfate 325 mg 07/16/24 09:00 07/20/24 09:51 Ferrous Sulfate [address] BY MOUTH 325 mg DAILY SAMUEL Administration Glucagon 1 mg 07/15/24 12:49 Glucagon For Inj 1 Mg Vial IM PRN PRN Hypoglycemia Protocol Glucose 15 gm 07/15/24 12:49 Glucose Oral Gel 15 Gm Of Glucse In 37.5 Gm Tube PO PRN PRN Hypoglycemia Protocol Hydralazine HCl 25 mg 07/15/24 13:00 07/20/24 13:08 Hydralazine Hcl 25 Mg Tablet PO 25 mg TID SAMUEL Administration Dextrose 1,000 mls @ 100 mls/hr 07/15/24 12:49 Dextrose 5% 1,000 Ml IVPB PRN PRN Hypoglycemia Protocol Insulin Aspart 2 - 5 units 07/15/24 17:00 07/20/24 12:57 Insulin Aspart (*Bkc) 100 Units/Ml SUB-Q Not Given TIDWM SAMUEL Protocol Insulin Aspart 1 - 2 units 07/15/24 21:00 07/19/24 22:19 Insulin Aspart (*Bkc) 100 Units/Ml SUB-Q 1 units HS SAMUEL Administration Protocol Latanoprost 1 drop 07/15/24 21:00 07/19/24 22:20 Latanoprost 0.005% Op Soln 2.5 Ml Btl EACH EYE 1 drop HS SAMUEL Administration Melatonin 3 mg 07/19/24 01:05 07/19/24 22:20 Melatonin 3 Mg Tablet PO 3 mg HS SAMUEL Administration Metoprolol Tartrate 50 mg 07/16/24 21:00 07/20/24 09:51 Metoprolol Tartrate 50 Mg Tab PO 50 mg Q12HR SAMUEL Administration Metoprolol Tartrate 5 mg 07/16/24 14:48 07/16/24 15:34 Metoprolol Tartrate Inj 5 Mg/5 Ml Vial IV PUSH 5 mg Q4H PRN Administration Tachycardia Nitroglycerin 0.4 mg 07/16/24 08:26 07/16/24 08:55 Nitroglycerin Sl 0.4 Mg Tablet SUBLINGUAL 0.4 mg Q5MIN PRN Administration Chest Pain Ondansetron HCl 4 mg 07/15/24 09:35 07/15/24 12:18 Ondansetron Inj 4 Mg/2 Ml Vial IV PUSH 4 mg Q4H PRN Administration Nausea Pantoprazole Sodium 40 mg 07/16/24 09:00 07/20/24 09:51 Pantoprazole 40 Mg Tablet PO 40 mg QAM SAMUEL Administration Warfarin Sodium 6 mg 07/20/24 17:00 Warfarin (*Pbkc) 3 Mg Tablet PO DAILY@1700 [facility] Radiology Results: ITS Impressions Abdomen/Pelvis CT 07/15/24 06:05 Impression: Distended gallbladder with questionable minimal pericholecystic inflammatory change. Consider acute cholecystitis. Consider right upper quadrant ultrasound for further evaluation. Upper Quadrant Ultrasound 07/15/24 08:13 IMPRESSION: 1. Nonspecific trace pericholecystic fluid but with normal-appearing gallbladder with no cholelithiasis or sonographic Smith sign to suggest acute cholecystitis. 2. Likely age-related mild to moderate diffuse right renal cortical atrophy. Chest X-Ray 07/15/24 09:01 IMPRESSION: No acute pulmonary pathology. Chest/Abdomen/Pelvis CT 07/16/24 10:12 IMPRESSION: CHEST: 1. Right pleural effusion. 2. No evidence of pneumonia or pneumothorax seen. ABDOMEN/PELVIS: 1. Distended gallbladder with tiny hyperdensities seen posterior in the gallbladder suggestive of stones. Ultrasound evaluation advised. Surrounding fluid is seen which may indicate cholecystitis. Clinical correlation advised. 2. Residual contrast seen in the urinary bladder. 3. No evidence of appendicitis, diverticulitis or intestinal obstruction. Cholecystostomy 07/17/24 15:27 IMPRESSION: 1. Successful ultrasound-guided cholecystostomy tube placement. 2. 20 mL bile was sent for aerobic, anaerobic, and fungal cultures. 3. The catheter will be managed by Dr. Mar. A catheter cholangiogram may be performed not less than 48 hours after tube placement if clinically indicated to assess cystic duct patency. If cholecystectomy is not eventually performed and the infectious episode has resolved, the tube may be removed over a guidewire, preferably not less than 3 weeks after placement to allow time for a mature catheter tract to form to prevent bile leakage and peritonitis. Labs Labs: Laboratory Results - last 24 hr 07/19/24 07/19/24 07/19/24 14:16 15:18 21:16 APTT 28.7 POC Capillary Glucose 284 H 220 H 07/20/24 07/20/24 07/20/24 00:53 07:14 07:29 APTT 70.2 H 113.7 H POC Capillary Glucose 134 H 07/20/24 11:19 APTT POC Capillary Glucose 191 H
[2024-07-20 17:09] LABS: Glucose Point of Care 164 mg/dl (65-105)
[2024-07-20] MEDS: ATORVASTATIN 40 MG TABLET 80 MG PO (17:36)
[2024-07-20] MEDS: ACETAMINOPHEN 325 MG TABLET 650 MG PO (17:41)
[2024-07-20] MEDS: WARFARIN (*PBKC) 3 MG TABLET 6 MG PO (18:00)
[2024-07-20 19:30] LABS: Glucose Point of Care 225 mg/dl (65-105)
[2024-07-20] MEDS: MELATONIN 3 MG TABLET PO (21:53)
[2024-07-20] MEDS: INSULIN ASPART (*BKC) 100 UNITS/ML SUB-Q (21:54)
[2024-07-20] MEDS: LATANOPROST 0.005% OP SOLN 2.5 ML BTL 1 DROP EACH EYE (22:00)
[2024-07-21] MEDS: AMOXICILLIN/CLAVULANATE K 500-125 MG TAB 1 TABLET PO ×2 (05:22→12:12)
[2024-07-21] MEDS: ACETAMINOPHEN 325 MG TABLET 650 MG PO (05:27)
[2024-07-21 05:35] VITALS: BP 146/64; PULSE 56; RESP 12; TEMP 36.2; O2SAT 96
[2024-07-21 05:50] LABS: INR 1.2; Prothrombin Time 15.4 Seconds (11.1-14.7)
--- NOTE | 2024-07-21 07:32 | PC.NURSE ---
Patient stated she did not have urge to urinate throughout night. Bladder scanned 60ml in bladder.
[2024-07-21 07:46] LABS: Glucose Point of Care 114 mg/dl (65-105)
[2024-07-21 08:00] VITALS: BP 155/64; PULSE 54; RESP 18; TEMP 36.2; O2SAT 95
[2024-07-21] MEDS: FERROUS SULFATE 325 MG TABLET DR BY MOUTH (09:10)
[2024-07-21] MEDS: amLODIPine BESYLATE 10 MG TABLET PO (09:10)
[2024-07-21] MEDS: hydrALAZINE HCL 25 MG TABLET PO ×2 (09:10→12:12)
--- NOTE | 2024-07-21 09:10 | P.DS_ITS ---
DS: Admitting Diagnosis Discharge Date 07/21/2024 Admitting Diagnosis Abdominal pain DS: Discharge Diagnosis Discharge Diagnosis (1) Anxiety: Code(s): F41.9 - Anxiety disorder, unspecified Status: Acute Assessment and Plan: Stable on current medications, will continue current treatment. (2) Depression: Code(s): F32.9 - Major depressive disorder, single episode, unspecified Status: Acute Assessment and Plan: Stable on current medications, will continue current treatment. (3) HTN (hypertension): Qualifiers: Hypertension type: essential hypertension Qualified Code(s): I10 - Essential (primary) hypertension Code(s): I10 - Essential (primary) hypertension Status: Acute Assessment and Plan: Stable on current medications, will continue current treatment. (4) CAD (coronary artery disease): Code(s): I25.10 - Atherosclerotic heart disease of [place] coronary artery without angina pectoris Status: Acute Assessment and Plan: Stable on current medications, will continue current treatment. (5) Troponin level elevated: Code(s): R79.89 - Other specified abnormal findings of blood chemistry Status: Acute Assessment and Plan: Stable on current medications, will continue current treatment. (6) Hx of CABG: Code(s): Z95.1 - Presence of aortocoronary bypass graft Status: Acute Assessment and Plan: Stable on current medications, will continue current treatment. (7) Paroxysmal atrial fibrillation: Code(s): I48.0 - Paroxysmal atrial fibrillation Status: Acute Assessment and Plan: Stable on current medications, will continue current treatment. (8) Pulmonary embolism: Code(s): I26.99 - Other pulmonary embolism without acute cor pulmonale Status: Acute Assessment and Plan: On Iv heparin, monitor closely. (9) Diabetes 1.5, managed as type 2: Code(s): E13.9 - Other specified diabetes mellitus without complications Status: Acute Assessment and Plan: Stable on current medications, will continue current treatment. (10) Abdominal pain, epigastric: Code(s): R10.13 - Epigastric pain Status: Acute Assessment and Plan: S/post cholecystotomy (11) GERD (gastroesophageal reflux disease): Code(s): K21.9 - Gastro-esophageal reflux disease without esophagitis Status: Acute Assessment and Plan: Stable on current medications, will continue current treatment. 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 Plan This is a 83-year-old female who presents to the ED with nausea vomiting and epigastric pain. She reported pain started about 10:00 p.m. last night. Continue to worsen and hence called EMS. He also reports some nausea vomiting and diarrhea associated with this pain. When EMS arrived patient was saturating 80% on room air and hence was placed on 2 L via nasal cannula. Upon arrival to the ED patient was saturating 93% on room air. Received IV Zofran 1 time dose per EMS. No chest pain reported. EKG showed sinus bradycardia at a rate of 54 beats per minute with no acute ST-T changes. Acute cholecystitis Laboratory evaluation revealed leukocytosis of 12.8 CT abdomen pelvis with contrast revealed distended gallbladder with questionable minimal pericholecystic inflammatory change consider acute cholecystitis. Right upper quadrant ultrasound was obtained which showed nonspecific trace pericholecystic fluid but with normal appearing gallbladder with no cholelithiasis or sonographic Smith sign to suggest acute cholecystitis. General surgery consultation Continue Zosyn perc cholecystostomy per surgeon Non ST elevation RI versus demand ischemia Cardiology consult. heparin gtt when inr <2. History of CAD status post CABG in the past Chest x-ray revealed no acute cardiopulmonary disease Troponin was mildly elevated at 0.107 followed by 0.331. BNP 3050. Cardiology plans cardiac catheterization Bacteremia Streptococcus gallolyticus ssp pasteurianus of blood culture July 15 Possible due to acute cholecystitis Continue cale Clements vancomycin per from cyst Repeat blood culture 07/17 pending Pulmonary Embolism Continue with IV heparin Paroxysmal atrial fibrillation start heparin drip. Reversal for Coumadin for potential intervention. Heparin drip when INR goes below 2 Dehydration, hypo magnesemia BUN of 28 magnesium 0.9 otherwise unremarkable. Patient received IV fluid bolus and magnesium supplementation type 2 diabetes Patient is on sliding scale a.c. q.h.s. Glucose is well controlled Hypertension On hydralazine 25 mg t.i.d. p.o. Code status full code DS: Summary Hospital Course Reason for hospitalization: Abdominal pain Hospital Course: 83 years old female was admitted complains of abdominal pain and nausea and vomiting. Patient was found to have cholecystitis. Patient was given cholecystostomy. Patient was continued on home medication. Patient was also given antibiotics. Today patient is feeling better and is pain free. Patient discharged home in stable condition. Cholecystostomy care explained to patient. Follow-up scheduled with primary care, surgeon, cardiology. Status at Discharge Cognitive/behavioral status at discharge: Stable Time Spent with Patient Time attestation: Total time spent providing and/or coordinating discharge services: 30 minutes Exam Narrative: GENERAL: Pleasant, in no acute distress. Well-nourished. - EYES: EOMI. Anicteric. - HENT: Moist mucous membranes. - LUNGS: Clear to auscultation bilateral ly, no wheezing, rhonchi, or rales. - CARDIOVASCULAR: Regular rate and rhyth m. No murmur. No JVD. - ABDOMEN: Soft, epigastric tender and n on-distended. No palpable masses. Status post cholecystotomy - EXTREMITIES: No edema. Peripheral puls es 2+. Non-tender. - NEUROLOGIC: No focal neurological defi cits. CN II-XII grossly intact. - PSYCHIATRIC: Awake, Alert and oriented x 3. Appropriate mood and affect. - SKIN: No rashes or lesions. Warm. - LYMPH: No cervical lymphadenopathy. DS: Data Data Completed and Pending Labs on day of discharge: Labs from last 24 hours 07/21/24 07/21/24 07/20/24 07:26 05:22 19:22 PT 15.4 H INR 1.2 APTT POC Capillary Glucose 114 H 225 H 07/20/24 07/20/24 07/20/24 17:04 11:19 07:29 PT INR APTT 113.7 H POC Capillary Glucose 164 H 191 H Preliminary micro results at discharge 07/17/24 14:53 Anaerobic Culture - Preliminary Bile Aerobic Culture - Preliminary 07/17/24 14:53 Fungal Culture - Preliminary Gallbladder Fluid 07/17/24 10:05 Blood Culture - Preliminary Blood 07/17/24 09:53 Blood Culture - Preliminary Blood 07/15/24 14:35 Blood Culture - Preliminary Blood Strep gallol ssp pasteuruanus Discharge Plan Discharge Attending physician on discharge: Christiano Odonnell Consulting providers: Twin Brar; Estelle Mar Discharging Clinician: Christiano Odonnell Patient Disposition: Home Activity: as tolerated Diet: as tolerated and low sodium Patient Instructions: Antibiotic Form, Warfarin (By mouth), Heart Failure (GEN) Patient Language: Maltese Stand Alone Forms: General Discharge Information Follow-up/Referrals: Christian Cardozo MD [Primary Care Provider] - Estelle Mar MD [Physician] - Twin Brar MD [Physician] - Discharge Medications: New amoxicillin-pot clavulanate [Augmentin] 500-125 mg Tablet 1 tablet PO Q8HR Qty: 21 0RF Continued latanoprost 0.005 % drops 1 drp EACH EYE HS metformin 500 mg tablet 500 mg PO BID Rx Instructions: TAKE 1 TABLET TWICE DAILY (DME) Accu-Chek Ingrid Plus test strp Strip See Rx Instructions .ROUTE .MEDSUPPLY Qty: 100 2RF Rx Instructions: Use to check blood sugar 3 times daily. loratadine 10 mg tablet 10 mg PO DAILY Tradjenta 5 mg tablet 5 mg PO QAM Qty: 90 2RF metoprolol tartrate 25 mg tablet 25 mg PO BID Rx Instructions: Take 1/2 tab BID aspirin 81 mg Tablet,Delayed Release (Dr/Ec) 81 mg PO DAILY warfarin 2 mg tablet 6 mg PO DAILY hydralazine 50 mg tablet 25 mg PO TID lansoprazole 15 mg capsule,delayed release(DR/EC) 15 mg PO DAILY atorvastatin 80 mg tablet 80 mg PO QPM Rx Instructions: TAKE 1 TABLET EVERY DAY cetirizine 10 mg tablet 10 mg PO DAILY ferrous sulfate [Iron (ferrous sulfate)] 325 mg (65 mg iron) tablet 325 mg PO DAILY Qty: 90 2RF citalopram 10 mg tablet 10 mg PO DAILY Qty: 90 1RF spironolactone 25 mg tablet 25 mg PO DAILY Qty: 90 2RF albuterol sulfate 90 mcg/actuation HFA aerosol inhaler 2 puff inhalation QID PRN (Reason: shortness of breath or wheezing) Qty: 6.7 0RF ergocalciferol (vitamin D2) [Vitamin D2] 1,250 mcg (50,000 unit) capsule 1,250 mcg PO WEEKLY Qty: 14 0RF amlodipine 10 mg tablet 10 mg PO DAILY Qty: 90 2RF Rx Instructions: Take 1 tablet by mouth once daily Date of admission: 07/15/24 12:59 Primary Care Provider: Christian Cardozo Admitting Provider: Sean King Attending physician on admission: Sean King Condition: Guarded Prognosis
[2024-07-21 09:11] VITALS: PULSE 60
[2024-07-21] MEDS: PANTOPRAZOLE 40 MG TABLET PO (09:11)
[2024-07-21] MEDS: ASPIRIN 81 MG ENTERIC TABLET PO (09:11)
[2024-07-21] MEDS: METOPROLOL TARTRATE 50 MG TAB PO (09:11)
[2024-07-21] MEDS: CLOPIDOGREL BISULFATE 75 MG TABLET PO (09:11)
--- NOTE | 2024-07-21 10:11 | PM.PNGS ---
Progress Note: A&P Assessment and Plan (1) Cholecystitis: Code(s): K81.9 - Cholecystitis, unspecified Status: Acute Assessment and Plan: exam benign, tolerating diet, continue drain and antibiotics, okay with discharge from a surgical standpoint, follow up as an outpatient in 2 weeks (2) CAD (coronary artery disease): Code(s): I25.10 - Atherosclerotic heart disease of [place] coronary artery without angina pectoris Status: Acute Assessment and Plan: stable, management per Cardiology Subjective Subjective Date/Time Seen: 07/21/24 10:11 Interval history: feels much better, tolerating diet, no abdominal pain Review of Systems Review of Systems: All systems reviewed & are unremarkable except as noted in HPI and below Exam Const: General: cooperative, comfortable and no acute distress Resp: Auscultation: clear to auscultation bilaterally Cardio: Rate: regular rate Rhythm: regular rhythm GI: Inspection: normal to inspection Other: perc cholecystostomy tube with bilious drainage Objective Data Vital Signs Vital Signs: Vital Signs - 24 hr 07/20/24 12:45 07/20/24 14:57 07/20/24 21:09 Temperature 36.5 C 36.7 C Pulse Rate 57 L 60 Respiratory Rate 16 13 Blood Pressure 143/63 H 157/60 H Pulse Oximetry 97 97 Oxygen Delivery Room Air 07/20/24 21:53 07/20/24 21:53 07/21/24 05:35 Temperature 36.2 C L Pulse Rate 60 56 L Respiratory Rate 12 Blood Pressure 146/64 H Pulse Oximetry 96 Oxygen Delivery Room Air 07/21/24 08:00 07/21/24 09:11 Temperature 36.2 C L Pulse Rate 54 L 60 Respiratory Rate 18 Blood Pressure 155/64 H Pulse Oximetry 95 Oxygen Delivery Intake/Output Intake/Output: Intake & Output 07/18/24 07/19/24 07/20/24 07/21/24 23:59 23:59 23:59 23:59 Intake Total 2070.0 1843.5 796.4 1300 Output Total 1141 711 160 901 Balance 929.0 1132.5 636.4 399 Meds/Results Medications: Active Medications Generic Name Dose Route Start Last Admin Trade Name Freq PRN Reason Stop Dose Admin Acetaminophen 650 mg 07/19/24 22:23 07/21/24 05:27 Acetaminophen 325 Mg Tablet PO 650 mg Q4H PRN Administration Pain Rated 1-3 Albuterol 2 puff 07/15/24 12:39 Albuterol Sulfate (*Sp) Aerosol 1 Puff INHALATION QIDRT PRN shortness of breath or wheezing Amlodipine Besylate 10 mg 07/16/24 09:00 07/21/24 09:10 Amlodipine Besylate 10 Mg Tablet PO 10 mg DAILY SAMUEL Administration Amoxicillin/Clavulanate Potassium 1 tablet 07/20/24 06:00 07/21/24 05:22 Amoxicillin/Clavulanate K 500-125 Mg Tab PO 07/24/24 22:01 1 tablet Q8HR SAMUEL Administration Aspirin 81 mg 07/16/24 09:00 07/21/24 09:11 Aspirin 81 Mg Enteric Tablet PO 81 mg DAILY SAMUEL Administration Atorvastatin Calcium 80 mg 07/15/24 18:00 07/20/24 17:36 Atorvastatin 40 Mg Tablet PO 80 mg QPM SAMUEL Administration Clopidogrel Bisulfate 75 mg 07/20/24 09:00 07/21/24 09:11 Clopidogrel Bisulfate 75 Mg Tablet PO 75 mg QAM SAMUEL Administration Dextrose 12.5 gm 07/15/24 12:49 Dextrose 50% 25 Gm/50 Ml Syringe IV PUSH PRN PRN Hypoglycemia Protocol Ferrous Sulfate 325 mg 07/16/24 09:00 07/21/24 09:10 Ferrous Sulfate [address] BY MOUTH 325 mg DAILY SAMUEL Administration Glucagon 1 mg 07/15/24 12:49 Glucagon For Inj 1 Mg Vial IM PRN PRN Hypoglycemia Protocol Glucose 15 gm 07/15/24 12:49 Glucose Oral Gel 15 Gm Of Glucse In 37.5 Gm Tube PO PRN PRN Hypoglycemia Protocol Hydralazine HCl 25 mg 07/15/24 13:00 07/21/24 09:10 Hydralazine Hcl 25 Mg Tablet PO 25 mg TID SAMUEL Administration Dextrose 1,000 mls @ 100 mls/hr 07/15/24 12:49 Dextrose 5% 1,000 Ml IVPB PRN PRN Hypoglycemia Protocol Insulin Aspart 2 - 5 units 07/15/24 17:00 07/21/24 09:09 Insulin Aspart (*Bkc) 100 Units/Ml SUB-Q Not Given TIDWM SAMUEL Protocol Insulin Aspart 1 - 2 units 07/15/24 21:00 07/20/24 21:54 Insulin Aspart (*Bkc) 100 Units/Ml SUB-Q 1 units HS [facility] Administration Protocol Latanoprost 1 drop 07/15/24 21:00 07/20/24 22:00 Latanoprost 0.005% Op Soln 2.5 Ml Btl EACH EYE 1 drop HS SAMUEL Administration Melatonin 3 mg 07/19/24 01:05 07/20/24 21:53 Melatonin 3 Mg Tablet PO 3 mg HS SAMUEL Administration Metoprolol Tartrate 50 mg 07/16/24 21:00 07/21/24 09:11 Metoprolol Tartrate 50 Mg Tab PO 50 mg Q12HR SAMUEL Administration Metoprolol Tartrate 5 mg 07/16/24 14:48 07/16/24 15:34 Metoprolol Tartrate Inj 5 Mg/5 Ml Vial IV PUSH 5 mg Q4H PRN Administration Tachycardia Nitroglycerin 0.4 mg 07/16/24 08:26 07/16/24 08:55 Nitroglycerin Sl 0.4 Mg Tablet SUBLINGUAL 0.4 mg Q5MIN PRN Administration Chest Pain Ondansetron HCl 4 mg 07/15/24 09:35 07/15/24 12:18 Ondansetron Inj 4 Mg/2 Ml Vial IV PUSH 4 mg Q4H PRN Administration Nausea Pantoprazole Sodium 40 mg 07/16/24 09:00 07/21/24 09:11 Pantoprazole 40 Mg Tablet PO 40 mg QAM SAMUEL Administration Warfarin Sodium 6 mg 07/20/24 17:00 07/20/24 18:00 Warfarin (*Pbkc) 3 Mg Tablet PO 6 mg DAILY@1700 SAMUEL Administration Radiology Results: ITS Impressions Abdomen/Pelvis CT 07/15/24 06:05 Impression: Distended gallbladder with questionable minimal pericholecystic inflammatory change. Consider acute cholecystitis. Consider right upper quadrant ultrasound for further evaluation. Upper Quadrant Ultrasound 07/15/24 08:13 IMPRESSION: 1. Nonspecific trace pericholecystic fluid but with normal-appearing gallbladder with no cholelithiasis or sonographic Smith sign to suggest acute cholecystitis. 2. Likely age-related mild to moderate diffuse right renal cortical atrophy. Chest X-Ray 07/15/24 09:01 IMPRESSION: No acute pulmonary pathology. Chest/Abdomen/Pelvis CT 07/16/24 10:12 IMPRESSION: CHEST: 1. Right pleural effusion. 2. No evidence of pneumonia or pneumothorax seen. ABDOMEN/PELVIS: 1. Distended gallbladder with tiny hyperdensities seen posterior in the gallbladder suggestive of stones. Ultrasound evaluation advised. Surrounding fluid is seen which may indicate cholecystitis. Clinical correlation advised. 2. Residual contrast seen in the urinary bladder. 3. No evidence of appendicitis, diverticulitis or intestinal obstruction. Cholecystostomy 07/17/24 15:27 IMPRESSION: 1. Successful ultrasound-guided cholecystostomy tube placement. 2. 20 mL bile was sent for aerobic, anaerobic, and fungal cultures. 3. The catheter will be managed by Dr. Mar. A catheter cholangiogram may be performed not less than 48 hours after tube placement if clinically indicated to assess cystic duct patency. If cholecystectomy is not eventually performed and the infectious episode has resolved, the tube may be removed over a guidewire, preferably not less than 3 weeks after placement to allow time for a mature catheter tract to form to prevent bile leakage and peritonitis. Labs Labs: Laboratory Results - last 24 hr 07/20/24 07/20/24 07/20/24 11:19 17:04 19:22 PT INR POC Capillary Glucose 191 H 164 H 225 H 07/21/24 07/21/24 05:22 07:26 PT 15.4 H INR 1.2 POC Capillary Glucose 114 H
[2024-07-21 11:50] LABS: Glucose Point of Care 162 mg/dl (65-105)
== END 2024-07-21 12:40 | disposition home or self-care (01) | DRG 444 ==
LOC: ANHED 08:28 → ANHIMU 10:18 → ANH3MEDSUR 07-21 09:07 → ANHIMU 07-23 09:01
PROVIDERS: General Practice; Hospitalist; Internal Medicine; Internal Medicine Cardiovascular Disease; Specialist; Admitting Provider Internal Medicine; Emergency Provider Emergency Medicine; PCP Family Medicine; Visit Provider Internal Medicine
PROC: 4A023N7 Measurement of Cardiac Sampling and Pressure, Left Heart, Percutaneous Approach (ICD-10-PCS; principal; 2024-07-19 09:45)
PROC: 4A023N7 Measurement of Cardiac Sampling and Pressure, Left Heart, Percutaneous Approach (ICD-10-PCS; 2024-07-19 09:45)
DX: K81.0 Acute cholecystitis (principal); I21.4 Non-ST elevation (NSTEMI) myocardial infarction; I13.0 Hypertensive heart and chronic kidney disease with heart failure and stage 1 through stage 4 chronic kidney disease, or unspecified chronic kidney disease; R78.81 Bacteremia; B95.4 Other streptococcus as the cause of diseases classified elsewhere; E13.22 Other specified diabetes mellitus with diabetic chronic kidney disease; N18.30 Chronic kidney disease, stage 3 unspecified; I50.9 Heart failure, unspecified; E83.42 Hypomagnesemia; R79.89 Other specified abnormal findings of blood chemistry; R00.1 Bradycardia, unspecified; E13.9 Other specified diabetes mellitus without complications; I25.10 Atherosclerotic heart disease of native coronary artery without angina pectoris; E86.0 Dehydration; E78.5 Hyperlipidemia, unspecified; I48.0 Paroxysmal atrial fibrillation; I35.0 Nonrheumatic aortic (valve) stenosis; F41.9 Anxiety disorder, unspecified; F32.9 Major depressive disorder, single episode, unspecified; H40.9 Unspecified glaucoma; M19.90 Unspecified osteoarthritis, unspecified site; Z95.1 Presence of aortocoronary bypass graft; Z86.718 Personal history of other venous thrombosis and embolism; Z86.711 Personal history of pulmonary embolism; I25.2 Old myocardial infarction; Z79.01 Long term (current) use of anticoagulants
CPT/HCPCS: 36415; 47490; 71046; 71250; 74176; 74177; 76705; 80048; 80053; 81001; 82948; 83036; 83690; 83735; 83880; 84484; 85025; 85027; 85610; 85730; 87040; 87070; 87075; 87102; 87181; 87205; 87206; 93005; 93455; 96365; 96366; 96375; 96376; 97161; 99285; A9270; C1760; C1769; C1887; C1894; C8929; G0269; G0378; J1644; J1650; J1815; J1938; J2003; J2250; J2270; J2405; J2543; J3010; J3370; J3475; J7030; J7040; Q9957; Q9967

== ENCOUNTER 2024-07-23 09:40 | Outpatient (CLI) | payer MEDICARE, SELFPAY ==
--- NOTE | ~2024-07-23 | XR_ITS ---
XR foot LT min 3V Ordering provider: Elena Stearns PA-C History: . M79.672 - Pain in left foot/SWELLING . Comparison: None. FINDINGS: BONES: No acute fracture or dislocation. JOINT SPACES: Severe osteoarthritic changes of the first metatarsophalangeal joint. Narrowing of the proximal and distal interphalangeal joints. Osteoarthritic changes also seen in the first, second and third tarsometatarsal joints. No tarsal coalition. SOFT TISSUES: Normal. Calcaneus spur. Ossification of the insertion of the tendo Achilles. IMPRESSION: No acute osseous abnormality left foot. Polyarticular osteoarthritic changes. Reviewed, dictated and finalized at location A.
[2024-07-23 10:30] LABS: Basophils Absolute Auto 0.1 K/mm3 (0.0-0.1); Basophils Percent Auto 0.7 % (0.2-1.2); Eosinophils Absolute Auto 0.1 K/mm3 (0-0.3); Eosinophils Percent Auto 1.1 % (0-4.4); Hematocrit 30.8 % (37.0-47.0); Immature Granulocyte Absolute 0.17 K/mm3 (0.00-0.031); Immature Granulocyte Percent A 1.7 % (0-0.5); Lymphocytes Absolute Auto 1.24 K/mm3 (0.9-3.2); Lymphocytes Percent Auto 12.3 % (18.3-44.2); Mean Corpuscular HGB Conc 32.5 g/dl (32-36); Mean Corpuscular Hemoglobin 30.1 pg (26-34); Mean Corpuscular Volume 92.8 fl (80-100); Mean Platelet Volume 9.2 fl (7.4-10.4); Monocytes Absolute Auto 0.6 K/mm3 (0.1-0.6); Monocytes Percent Auto 6.2 % (2.6-8.5); Neutrophils Absolute Auto 7.9 K/mm3 (1.3-6.7); Platelet Count Result 417 k/mm3 (150-375); Red Blood Count 3.32 M/mm3 (4.2-5.4); Red Cell Distribution Width 12.8 % (11.5-14.5); White Blood Count 10.1 K/mm3 (4.5-10.0)
[2024-07-23 10:41] LABS: INR 1.4; Prothrombin Time 17.6 Seconds (11.1-14.7)
[2024-07-23 10:44] LABS: Alanine Aminotransferase 46 U/L (6-35); Albumin Level 3.9 g/dL (3.5-5.1); Alkaline Phosphatase 122 U/L (38-126); Anion Gap 18 mmol/L (4-12); Aspartate Amino Transferase 38 U/L (14-36); Bilirubin,Total 0.8 mg/dL (0.2-1.3); Blood Urea Nitrogen 50 mg/dL (7-17); Carbon Dioxide 17 mmol/L (22-30); Chloride 100 mmol/L (98-107); Estimated Glomerular Filt Rate 8; Glucose 116 mg/dL (65-110); Sodium 135 mmol/L (137-145); Uric Acid 8.7 mg/dL (2.5-7.5)
--- OUTSIDE RECORDS SUMMARY | 2024-07-23 10:46 | XMS_ITS | Encounter Summary ---
Author Organization [facility] Address [facility] [place] [address] Care Team Providers Care Cork Wirer Name Role Phone Bianca Silverman Primary Care Provider [phone] Christian Cardozo MD Primary Care Provider [phone] Encounter Details Date Type Department Care Team (Late st Contact Info) Description 09/01/2018 Abstract [facility] CONVERSION [address] [place] [address] , Generic Conversion, Social History Tobacco Use Types Packs/Day Years Used Date Smoking Tobacco: Never Assessed Comments Unknown Sex and Gender Information Value Date Recorded Sex Assigned at Female 05/03/2024 2:10 PM [employer] Legal Sex Female 5:08 PM CDT Gender Identity Not on file Sexual Orientation Not on file documented as of this encounter Plan of Treatment Not on file documented as of this encounter Visit Diagnoses Not on filedocumented in this encounter Care Teams Cork Wirer Relationship Specialty Start Date End Date Bianca Silverman FNP [address] [place] [id number] PCP - General NURSE PRACTITIONER 02/22/19 03/13/24 Christian Cardozo MD [address] [facility] [address] [place] [address] PCP - General FAMILY PRACTICE 03/14/24 documented as of this encounter
--- OUTSIDE RECORDS SUMMARY | 2024-07-23 10:46 | XMS_ITS | Encounter Summary ---
Author Organization [facility] Address [address] [place] [address] Phone Care Team Providers Care Fire Pilot Name Role Phone Christian Cardozo MD Primary Care Provider Encounter Details Date Type Department Care Team (Latest Contact Info) Description 08/04/2023 Transcribe Orders [facility] [address] [place] [address] Dhiraj Witt MD [address] [facility] [address] [place] [address] Encounter for other specified special examinations (Primary [...] Primary documented in this encounter Care Teams Fire Pilot Relationship Specialty Start Date End Date Christian Cardozo MD [address] [place] [address] PCP - General Family Medicine 08/04/23 documented as of this encounter
--- OUTSIDE RECORDS SUMMARY | 2024-07-23 10:46 | XMS_ITS | Continuity of Care Document ---
Author Organization [facility] [place] [address] [place] [address] Dr [address]ana [address] [place] [phone] Phone Care Team Providers Care Pepper Cutter Name Role Phone Salcedo OD, Tod Unavailable [...] Copied on Encounter Office/outpat ient Visit, Est [facility], [address] [place] [address] [address], [place], [place], [id number], tel:[phone] [facility] No Information Oct-2 1-201 0 Salcedo OD Tod. [address] [facility] , [address], [place], [place], [facility], [place]. tel:[phone] [facility], [address] [place] [address] [address], [place], [place], [id number], tel:[phone] [facility] No Information Oct-1 5-201 0 Salcedo OD Tod. [address] [facility] [address], [place], [address], [place]. tel:[phone] [facility], [address] [place] [address] [address], [place], [place], [id number], [place] tel:[phone] [facility] No Information Oct-0 6-201 0 Sharifa Cheung. [address] [facility] [address], [place], [address], [place]. tel:[phone] Referring Provider: Jonatan Munoz [address] [facility] [address], [place], [facility]. tel:[phone] [facility], [address] [place] [address] [address], [place], [place], [address], [place] tel:[phone] [facility] No Information Sep-2 7-201 0 Doisy Edaye. [address] [facility] , [address], [place], [facility], . tel:[phone] Referring Provider: Jonatan Munoz, [address], [place], [facility]. tel:[phone] Office/outpat ient Visit, Est [facility], [address] [place] [address], [place], [place], [id number], [place] tel:[phone] [facility] No Information May-2 6-201 0 Doisy Edaye. [address] [facility] , [address], [place], [facility], [place]. tel:[phone] [facility], [address] [place] [address] [address], [place], [place], [address], [place] tel:[phone] [facility] No Information May-1 2-201 0 Doisy Edaye. [address] [facility] , [address], [place], [facility], [place]. tel:[phone] [facility], [address] [place] [address], [place], [place], [address], [place] tel:[phone] [facility] No Information May-0 4-201 0 Doisy Edaye. [address] [facility] , [address], [place], [facility], [place]. tel:[phone] [facility], [address] [place] [address], [place], [place], [address], [place] tel:[phone] [facility] No Information Apr-1 9-201 0 Doisy Edaye. [address] [facility] [address], [address], [place], [facility], [place]. tel:[phone] Office/outpat ient Visit, Est [facility], [address] [place] [address], [place], [place], [address], [place] tel:[phone] [facility] No Information Mar-1 5-201 0 Sharifa Cheung. [address] , [address], [place], [facility], . tel:[phone] Office/outpat ient Visit, Est [facility], [address] [place] [address], [place], [place], [address], [place] tel:[phone] [facility] No Information Oct-2 6-200 9 Sharifa Cheung. [address] , [address], [place], [facility], [place]. tel:[phone] Referring Provider: Jonatan Munoz, [address], [place], [facility]. tel:[phone] [facility], [address] [place] [address], [place], [place], [address], [place] tel:[phone] [facility] No Information Davon-2 4-200 9 Sharifa Cheung. [facility] hospital[facility] , [address], [place], [facility], [place]. tel:[phone] Referring Provider: Jonatan Munoz, [address], [place], [facility]. tel:[phone] [facility], [address] [place] [address], [place], [place], [address], [place] tel:[phone] [facility] No Information Davon-2 2-200 9 Sharifa Cheung. Critical access hospitalN[facility] , [address], [place], [facility], [place]. tel:[phone] Referring Provider: Jonatan Munoz, [address], [place], [facility]. tel:[phone] [facility], [address] [place] [address], [place], [place], [address], [place] tel:[phone] [facility] No Information 9-200 9 Sharifa Edaye. [address] [facility] , [address], [place], [facility], . tel:[phone] Office/outpat ient Visit, [facility], [address] [place] [address] [address], [place], [place], [address], [place] tel:[phone] [facility] No Information Dec-2 3-200 8 Sharifa Edaye. [address] [facility] , [address], [place], [facility], [place]. tel:[phone] Referring Provider: Jonatan Munoz, [address] [facility] [address], [place], [facility]. tel:[phone] Office/outpat ient Visit, [facility], [address] [place] [address] [address], [place], [place], [address], [place] tel:[phone] [facility] No Information 8-200 8 Sharifa Cheung. [address] [facility] , [address], [place], [facility], [place]. tel:[phone] [facility], [address] [place] [address], [place], [place], [address], [place] tel:[phone] [facility] No Information 2 1-200 8 Sharifa Cheung. [address] [facility] , [address], [place], [facility], [place]. tel:[phone] [facility], [address] [place] [address] [address], [place], [place], [address], [place] tel:[phone] [facility] No Information Jun-3 0-200 8 Sharifa Cheung. [address] , [address], [place], [address], [place]. tel:[phone] Referring Provider: Jonatan Munoz, [address], [place], [facility]. tel:[phone] [facility], [address] [place] [address] [address], [place], [place], [address], [place] tel:[phone] [facility] No Information Jun-2 2-200 8 Sharifa Cheung. [address], [address], [place], [facility], [place]. tel:[phone] Referring Provider: Jonatan Munoz, [address], [place], [facility]. tel:[phone] Office/outpat ient Visit, [facility], [address] [place] [address], [place], [place], [address], [place] tel:[phone] [facility] No Information Nirav-0 9-200 8 Sharifa Cheung. Critical access hospitalNancy [facility] [address], [address], [place], [facility], [place]. tel:[phone] Office/outpat ient Visit, [facility], [address] [place] [address], [place], [place], [address], [place] tel:[phone] [facility] No Information Oct-1 7-200 7 Sharifa Cheung. [address], [address], [place], [facility], [place]. tel:[phone] [facility], [address] [place] [address] [address], [place], [place], [address], [place] tel:[phone] [facility] No Information Leonardo-1 0-200 7 Sharifa Cheung. [address], [address], [place], [facility], [place]. tel:[phone] Referring Provider: Jonatan Munoz, [address], [place], [address]. tel:[phone] Office/outpat ient Visit, [facility], [address] [place] [address], [place], [place], [address], [place] tel:[phone] [facility] No Information 7 Sharifa Cheung. [address] [facility] , [address], [place], [address], [place]. tel:[phone] Referring Provider: Jonatan Munoz Critical access hospital1 [facility] [address], [place], [address]. tel:[phone] Family History Family Member Type Diagnosis Age At Onset No Information Payers Payer name Insurance type Covered alliance party ID Authoriza tion(s) Medicare [facility] [id number] [place] [id number] Social History Type Description Quantity Date Captured [...]
--- OUTSIDE RECORDS SUMMARY | 2024-07-23 10:46 | XMS_ITS | Encounter Summary ---
Author Organization [facility] Healthcare Address [address] [place] [address] Care Team Providers Care Sample Card Maker Name Role Phone Christian Cardozo MD Primary Care Provider Encounter Details Date Type Department Care Team (Late st Contact Info) Description 06/29/2023 Orders Only [facility] Health Information Management [address] [place] [address] Scanning, Provider Social History Tobacco Use Types Packs/Day Years Used Date Smoking Tobacco: Never Smokeless Tobacco: Never Alcohol Use Standard Drinks/Week Comments No 0 (1 standard drink = 0.6 oz pur e alcohol) Comments Unknown Sex and Gender Information Value Date Recorded Sex Assigned at Not on file 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
--- OUTSIDE RECORDS SUMMARY | 2024-07-23 10:46 | XMS_ITS | Encounter Summary ---
Author Organization [facility] Healthcare Address [address] [place] [address] Care Team Providers Care Architecture Analyst Name Role Phone Christian Cardozo MD Primary Care Provider Encounter Details Date Type Department Care Team (Late st Contact Info) Description 07/19/2024 Orders Only [facility] Medical Group Cardiology [address] [facility] [address] [phone] Zhen Oliveira MD [address] [address] Social History Tobacco Use Types Packs/Day Years Used Date Smoking Tobacco: Never Smokeless Tobacco: Never Alcohol Use Standard Drinks/Week Comments No 0 (1 standard drink = 0.6 oz pur e alcohol) Comments Unknown Sex and Gender Information Value Date Recorded Sex Assigned at Not on file 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 Gender Identity Not on file Sexual Orientation Not on file documented as of this encounter Plan of Treatment Not on file documented as of this encounter Procedures Procedure Name Priority Date/Time Associated Diagnosis Comments CARDIOLOGY DOCUMENT SCAN Routine 07/16/2024 8:28 AM CDT CARDIOLOGY DOCUMENT SCAN Routine 07/15/2024 8:14 AM CDT documented in this encounter Results * Cardiology Document Scan (07/16/2024 8:28 AM CDT) Anatomical Region Laterality Modality Other [facility] Winnie Brothers MD CV CARDIAC SERVICES PRO CEDURES Final Result * Cardiology Document Scan (07/15/2024 8:14 AM CDT) Anatomical Region Laterality Modality Other us Zhen Oliveira MD CV CARDIAC SERVICES PROCEDURES F inal Result documented in this encounter Visit Diagnoses Not on filedocumented in this encounter Care Teams Architecture Analyst Relationship Specialty Start Date End Date Christian Cardozo MD [address] [facility] [address] [place] [id number] PCP - General Family Medicine 06/14/18 documented as of this encounter
--- OUTSIDE RECORDS SUMMARY | 2024-07-23 10:46 | XMS_ITS | Encounter Summary ---
Author Organization [facility] Healthcare Address [address] [place] [address] Care Team Providers Care Armature Tester Name Role Phone Christian Cardozo MD Primary Care Provider Encounter Details Date Type Department Care Team (Late st Contact Info) Description 10/02/[address] 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
--- OUTSIDE RECORDS SUMMARY | 2024-07-23 10:46 | XMS_ITS | Clinical Summary ---
Author Organization [facility] Address [address] [place] [address] Phone Care Team Providers Care Automobile Repair Service Estimator Name Role Phone Christian Cardozo MD Primary [...] to complete this topic Insurance [address] [place] [address] MEDICARE C BCBS PPO MODE [place] [id number] Care Teams Automobile Repair Service Estimator Relationship Specialty Start Date End Date Christian Cardozo MD [address] [place] [address] PCP - General Family Medicine 08/04/23
--- OUTSIDE RECORDS SUMMARY | 2024-07-23 10:46 | XMS_ITS | Encounter Summary ---
Author Organization [facility] Healthcare Address [address] [place] [address] Care Team Providers Care Supply Chain Director Name Role Phone Christian Cardozo MD Primary Care Provider Encounter Details Date Type Department Care Team (Late st Contact Info) Description 07/22/2024 Orders Only [facility] Medical Group Cardiology [address] [place] [address] Odilia Brothers MD [facility] [address] Social History Tobacco Use Types Packs/Day Years Used Date Smoking Tobacco: Never Smokeless Tobacco: Never Alcohol Use Standard Drinks/Week Comments No 0 (1 standard drink = 0.6 oz pur e alcohol) Comments Unknown Sex and Gender Information Value Date Recorded Sex Assigned at Not on file 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 Gender Identity Not on file Sexual Orientation Not on file documented as of this encounter Plan of Treatment Not on file documented as of this encounter Procedures Procedure Name Priority Date/Time Associated Diagnosis Comments CARDIOLOGY DOCUMENT SCAN Routine 07/20/2024 5:26 PM CDT CARDIOLOGY DOCUMENT SCAN Routine 07/19/2024 5:22 PM CDT CARDIOLOGY DOCUMENT SCAN Routine 07/19/2024 5:06 PM CDT CARDIOLOGY DOCUMENT SCAN Routine 07/18/2024 5:05 PM CDT CARDIOLOGY DOCUMENT SCAN Routine 07/17/2024 5:01 PM CDT documented in this encounter Results * Cardiology Document Scan (07/20/2024 5:26 PM CDT) Anatomical Region Laterality Modality Other us Beni Bloom MD CV CARDIAC SERVICES PROCE DURES Final Result * Cardiology Document Scan (07/19/2024 5:22 PM CDT) Anatomical Region Laterality Modality Other Odilia Brothers MD CV CARDIAC SERVICES PRO CEDURES Final Result * Cardiology Document Scan (07/19/2024 5:06 PM CDT) Anatomical Region Laterality Modality Other Odilia Brothers MD CV CARDIAC SERVICES PRO CEDURES Final Result * Cardiology Document Scan (07/18/2024 5:05 PM CDT) Anatomical Region Laterality Modality Other us Zhen Oliveira MD CV CARDIAC SERVICES PROCEDURES F inal Result * Cardiology Document Scan (07/17/2024 5:01 PM CDT) Anatomical Region Laterality Modality Other Odilia Brothers MD CV CARDIAC SERVICES PRO CEDURES Final Result documented in this encounter Visit Diagnoses Not on filedocumented in this encounter Care Teams Supply Chain Director Relationship Specialty Start Date End Date Christian Cardozo MD [address] [facility] [address] [place] [address] PCP - General Family Medicine 06/14/18 documented as of this encounter
--- OUTSIDE RECORDS SUMMARY | 2024-07-23 10:47 | XMS_ITS | Encounter Summary ---
Author Organization [facility] Address Critical access hospital[address] [place] [address] Care Team Providers Care Roll Cleaner Name Role Phone Bianca Silverman Primary Care Provider [phone] Christian Cardozo MD Primary Care Provider [phone] Encounter Details Date Type Department Care Team (Late st Contact Info) Description 01/27/2014 Abstract [facility] CONVERSION [address] [place] [address] , Generic ConversionMD Social History Tobacco Use Types Packs/Day Years Used Date Smoking Tobacco: Never Assessed Comments Unknown Sex and Gender Information Value Date Recorded Sex Assigned at Female 05/03/2024 2:10 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
--- OUTSIDE RECORDS SUMMARY | 2024-07-23 10:47 | XMS_ITS | Clinical Summary ---
Author Organization [facility] Address [address] [place] [address] Care Team Providers Care Engineer Conductor Name Role Phone Christian Cardozo MD Primary Care Provider [phone] Allergies No known active allergies Medications amLODIPine [...] - 06/11/2024 11:59 PM CDT Hospital Encounter [facility] [address] [place] [address] Krissy Dumont MD Discharge Disposition: Home or Self Care (Routine Discharge) 06/11/2024 10:31 AM CDT Hospital Encounter [facility] [address] [place] [address] Christian Cardozo MD Discharge Disposition: Home or Self Care (Routine Discharge) 06/11/2024 10:29 AM CDT - 06/11/2024 10:30 AM CDT Hospital Encounter [facility] [address] [place] [address] Twin Brar MD Discharge Disposition: Home or Self Care (Routine Discharge) 06/11/2024 Orders Only [facility] [address] [place] [address] Krissy Dumont MD 06/11/2024 Travel 05/03/2024 2:15 PM MRI MANAGER - 05/03/2024 11:59 PM MRI MANAGER Hospital Encounter [facility] [address] [place] [address] Twin Brar MD Discharge Disposition: Home or Self Care (Routine Discharge) 05/03/2024 Orders Only [facility] [address] [place] [address] Twin Brar MD 05/03/2024 Travel from Last [...] Sex Assigned at Female 05/03/2024 2:10 PM MRI MANAGER Legal Sex Female 5:08 PM CDT Gender [...] diabetes mellitus with ESRD (end-stage renal disease) ([facility]) Inadequately controlled diabetes mellitus ([facility]) Encounter for long-term (current) use of insulin ([facility]) Other specified abnormal findings of blood chemistry Chronic kidney disease, unspecified VITAMIN D, 25 OH Routine 06/11/2024 10:3 9 AM CDT Type 2 diabetes mellitus with ESRD (end-stage renal disease) ([facility]) Inadequately controlled diabetes mellitus ([facility]) Encounter for long-term (current) use of insulin ([facility]) Other specified abnormal findings of blood chemistry Chronic kidney disease, unspecified VITAMIN B-12 Routine 06/11/2024 10:39 AM CDT Type 2 diabetes mellitus with ESRD (end-stage renal disease) ([facility]) Inadequately controlled diabetes mellitus ([facility]) Encounter for long-term (current) use of insulin ([facility]) Other specified abnormal findings of blood chemistry Chronic kidney disease, unspecified LIPID PANEL Routine 06/11/2024 10:39 AM CDT Type 2 diabetes mellitus with ESRD (end-stage renal disease) ([facility]) Inadequately controlled diabetes mellitus ([facility]) Encounter for long-term (current) use of insulin ([facility]) Other specified abnormal findings of blood chemistry Chronic kidney disease, unspecified PROTHROMBIN TIME, VENOUS Routine 06/11/2024 10:39 AM CDT Atrial fibrillation with RVR ([facility]) PROTHROMBIN TIME, VENOUS Routine 05/03/2024 2:33 PM MRI MANAGER Atrial fibrillation with RVR ([facility]) HEMOGLOBIN, GLYCOSYLATED Routine 05/09/2012 11:40 AM MRI MANAGER from Last 3 Months or Most Recently Relevant to Health Maintenance Results * (ABNORMAL) MICROALBUMIN CREATININE RATIO (MICROALBUMIN/ALBUMIN) (06/11/2024 10:50 AM CDT) CREATININE (U) 90.5 28 - 217 MG/DL 06/11/2024 11:28 AM CDT [facility] MICROALBUMIN (U) 75.9(H) <2.0 mg/dL 06/11/2024 11:28 AM CDT [facility] ALBUMIN/CREAT RATIO 838.8(H) <30.0 MG/G 06/11/2024 11:28 AM CDT [facility] URINE SPECIMEN / Unknown 06/11/2024 10:50 AM CDT Krissy Dumont MD URINE ORDERABLES Final Result [facility] [address] [place] [address], [place] [phone] * (ABNORMAL) VITAMIN B-12 (06/11/2024 10:39 AM CDT) VITAMIN B12 S/P/B 1,501(H) 193 - 986 PG/ML 06/11/2024 11:29 AM CDT [facility] 06/11/2024 10:3 9 AM CDT Krissy Dumont MD LABORATORY Final Result [facility] [address] [place] [address], [place] [phone] * (ABNORMAL) PROTIME/INR, VENOUS (06/11/2024 10:39 AM CDT) Only the most recent of2 resultswithin the time period is included. PROTIME 28.2(H) 9.1 - 12.4 SEC 06/11/2024 11:09 AM CDT [facility] INR 2.5 06/11/2024 11:09 AM CDT [facility] Comment: Recommend INR ranges for Oral Anticoagulant Therapy: Mechanical Cardiac Values 2.5-3.5 All others indication 2.0-3.0 06/11/2024 10:3 9 AM CDT us Twin Brar MD LABORATORY Final Res ult [facility] [address] [place] [address], * (ABNORMAL) LIPID PANEL (06/11/2024 10:39 AM CDT) CHOLESTEROL 162 <200.0 MG/DL 06/11/2024 11:04 AM CDT [facility] TRIGLYCERIDES 173(H) <150 MG/DL 06/11/2024 11:04 AM T [facility] HDL 44 >40.0 MG/DL 06/11/2024 11:04 AM T [facility] LDL (CALCULATED) 83 <100 MG/DL 06/11/2024 11:04 AM T [facility] NON HDL CHOLESTEROL 118 <130 MG/DL 06/11/2024 11:04 AM T [facility] CHOL/HDL RATIO 3.7 0.0 - 4.5 06/11/2024 11:04 AM T [facility] VLDL CALCULATION 35 5 - 55 MG/DL 06/11/2024 11:04 AM T [facility] LIPID INTERPRETATION 06/11/2024 11:04 AM T [facility] Comment: [facility] REPORT RECOMMENDATIONS: ADULT CHILD LOW RISK: CHOLESTEROL <200 <170 TRIGLYCERIDE <150 --- HDL >=60 --- LDL <100 <110 BORDERLINE: CHOLESTEROL 200-239 170-199 TRIGLYCERIDE 150-199 --- HDL 40-59 --- LDL 100-159 110-129 HIGH RISK: CHOLESTEROL >=240 >=200 TRIGLYCERIDE >=200 --- HDL <40 --- LDL >=160 >=130 06/11/2024 10:3 9 AM CDT Krissy Dumont MD LABORATORY Final Result Performing Organization Address [facility]/ZIP Co de Phone Number [facility] [address] [place] [address], [place] [phone] * (ABNORMAL) VITAMIN D, 25 OH (06/11/2024 10:39 AM CDT) VITAMIN D 25 HYDROXY S/P/B 25(L) 30 - 100 NG/ML 06/11/2024 11:42 AM CDT [facility] Comment: INTERPRETATION DEFICIENT <20 INSUFFICIENT 20-29 SUFFICIENT 30-100 06/11/2024 10:3 9 AM CDT Krissy Dumont MD LABORATORY Final Result Performing Organization Address [facility] Co de Phone Number [facility] [address] [place] [address], [place] [phone] * (ABNORMAL) HEMOGLOBIN, GLYCOSYLATED (05/09/2012 11:40 AM MRI MANAGER) Pathologist [facility] HGB A1C 6.9 INCREASED RISK OF DIABETES <5.7% NON-DIABETES 5.7-6.4% INCREASED RISK FOR FUTURE DIABETES > OR = 6.5 CONSISTENT WITH DIABETES STANDARDS OF MEDICAL CARE IN DIABETES-2010 DIABETES CARE, 33(SUPP 1): S1-S61,2010 (H) <5.7 % [employer] TO EPIC CONVERSION 05/09/2012 11:4 0 AM MRI MANAGER 05/09/2012 11:40 AM MRI MANAGER Narrative [facility] TO EPIC CONVERSION - 05/09/2012 12:21 PM MRI MANAGER Result Communication: No patient communication needed at this time Ahsan Cash MD LABORATORY Final Result Performing Organization Address City/[facility]/ZIP Co de Phone Number [facility] TO EPIC CONVERSION from Last 3 Months or Most Recently Relevant to Health Maintenance Insurance [employer] Care Teams Engineer Conductor Relationship Specialty Start Date End Date Christian Cardozo MD [address] [place] [address] PCP - General FAMILY PRACTICE 03/14/24
--- OUTSIDE RECORDS SUMMARY | 2024-07-23 10:47 | XMS_ITS | Encounter Summary ---
Author Organization [facility] Address [facility] [place] [address] Care Team Providers Care Safety Teacher Name Role Phone Bianca Silverman Primary Care Provider [phone] Christian Cardozo MD Primary Care Provider [phone] Encounter Details Date Type Department Care Team (Latest Contact Info) Description 01/30/2018 Abstract [facility] , Tanner Souza MD Social History Tobacco Use Types Packs/Day Years Used Date Smoking Tobacco: Never Assessed Comments Unknown Sex and Gender Information Value Date Recorded Sex Assigned at Female 05/03/2024 2:10 PM ACTUARIAL MATHEMATICIAN Legal Sex Female 5:08 PM CDT Gender Identity Not on file Sexual Orientation Not on file documented as of this encounter Plan of Treatment Not on file documented as of this encounter Visit Diagnoses Not on filedocumented in this encounter Care Teams Safety Teacher Relationship Specialty Start Date End Date Bianca Silverman FNP [facility] [place] [address] PCP - General NURSE PRACTITIONER 02/22/19 03/13/24 Christian Cardozo MD [address] [facility] [address] [place] [address] PCP - General FAMILY PRACTICE 03/14/24 documented as of this encounter
--- OUTSIDE RECORDS SUMMARY | 2024-07-23 10:52 | XMS_ITS | Clinical Summary ---
Author Organization [facility] Address [address] [address] Phone Care Team Providers Care Lithography Contact Worker Name Role Phone Unavailable Primary Care Provider Unavailabl e Medications irbesartan (AVAPRO) 300 MG tablet 1 qday 0 04/22/2018 Active atorvastatin (LIPITOR) 40 MG tablet 1 qday 0 04/22/2018 Active omeprazole (PriLOSEC) [address] capsule 1 qday 0 04/22/2018 Activ e chlorthalidone (HYGROTON) 25 MG tablet 1 qday 0 04/22/2018 Active meloxicam (MOBIC) 7.5 MG tablet 1 bid 0 04/22/2018 Active Magnesium Oxide -Mg Supplement 400 MG capsule 1 qday 0 04/22/2018 Acti ve amLODIPine (NORVASC) 10 MG tablet 1 qday 0 04/22/2018 Active spironolactone (ALDACTONE) 25 MG tablet 1 qday 0 04/22/2018 Active hydrALAZINE (APRESOLINE) 50 MG tablet 1 bid 0 04/22/2018 Active citalopram (CeleXA) 10 MG tablet 1 qday 0 04/22/2018 Active metFORMIN XR (GLUCOPHATE-XR) 500 MG 24 hr tablet 4 qday 0 04/22/2018 Active insulin aspart (NovoLOG FLEXPEN) 100 UNIT/ML injection as directed 0 04/22/2018 Active Active Problems Problem Noted Date Diagnosed Date Essential (primary) hypertension 04/22/2018 Chronic kidney disease, stage 3 (moderate) 04/22 Type 2 diabetes mellitus wit h other diabetic kidney complication 04/22/2018 Mixed hyperlipidemia 04/22/2018 Family History Medical History Relation Comments Kidney disease Neg Hx Kidney stone Neg Hx Social History Tobacco Use Types Packs/Day Years Used Date Smoking Tobacco: Never Alcohol Use Standard Drinks/Week Comments No 0 (1 standard drink = 0.6 oz pur e alcohol) Comments Unknown Sex and Gender Information Value Date Recorded Sex Assigned at Not on file Legal Sex Female 9:51 AM MST Gender Identity Not on file Sexual Orientation Not on file Last Filed Vital Signs Vital Sign Reading Time Taken Comments Blood Pressure 152/80 04/23/2018 12:01 AM HORTICULTURE SUPERVISOR Pulse - - Temperature 36.7 C (98.1 F) 04/23/2018 12:01 AM HORTICULTURE SUPERVISOR Respiratory Rate - - Oxygen Saturation - - Inhaled Oxygen Concentration - - Weight 79.4 kg (175 lb) 04/23/2018 12:01 AM HORTICULTURE SUPERVISOR Height 162.6 cm (5' 4 ) 04/23/2018 12:01 AM HORTICULTURE SUPERVISOR Body Mass Index 30.04 04/23/2018 12:01 AM HORTICULTURE SUPERVISOR Plan of Treatment Not on file
--- OUTSIDE RECORDS SUMMARY | 2024-07-23 10:52 | XMS_ITS | Referral Summary ---
Author Organization [facility] [address] Address [address] [place] [phone] Care Team Providers Care Seeing Eye Dog Teacher Name Role Phone Christian Cardozo MD Primary Care Provider Encounters Date Type Department Care Team Description 07/22/2024 Orders Only [facility] Medical [facility] Cardiology [address] [place] [address] [place] [phone] Odilia Brothers MD 07/19/2024 Orders Only [facility] Cardiology [address] [place] [address] [place] [address] [phone] Zhen Oliveira MD 06/17/2024 Anticoagulation Visit [facility] Medical [facility] Cardiology [address] [place] [address] [place] [phone] Elda Mullins RN 06/13/2024 Anticoagulation Visit [facility] Cardiology [address] [place] [address] [address] [place] [address] [phone] Didi Wills, BEST 05/06/2024 Anticoagulation Visit [facility] Cardiology [address] [place] [address] [address] [place] [address] Didi Wills, RN 05/03/2024 Orders Only [facility] Health Information Management [address] [place] [address] Twin Brar MD 04/25/2024 Anticoagulation Visit [facility] Medical Group Cardiology [address] [place] [address] Didi Wills RN 04/25/2024 Telephone [facility]iology [address] [place] [address] Twin Brar MD INR results from Last [...] tablet (325 mg total) by mouth daily Active spironolactone (ALDACTONE) 25 mg tablet Take 1 tablet (25 mg total) by mouth daily Active hydrALAZINE (APRESOLINE) 25 mg tablet Take [...] 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 05/07/2018 Overview (05/08/2018): Added automatically from request for surgery [id number] S/P CABG (coronary artery bypass graft) Type [...] on file Legal Sex Female 1:11 PM INSTRUMENT TECH Gender Identity Not on file Sexual Orientation [...] DOCUMENT SCAN Routine 07/17/2024 5:01 PM CDT CARDIOLOGY DOCUMENT SCAN Routine 07/16/2024 8:28 AM CDT CARDIOLOGY DOCUMENT SCAN Routine 07/15/2024 8:14 AM CDT PROTIME-INR Routine 06/11/2024 SCAN - LABS 05/03/2024 PROTIME-INR Routine 05/03/2024 LIPID PANEL Routine 01/08/2024 8:58 AM CDT EGFR STAT 05/16/2018 9:14 AM INSTRUMENT TECH HEMOGLOBIN A1C Routine 05/07/2018 7:28 PM INSTRUMENT TECH from Last 3 Months or Most Recently Relevant to Health Maintenance Results * Cardiology Document Scan (07/20/2024 5:26 PM CDT) Anatomical Region Laterality Modality Other us Beni Bloom MD [facility] CARDIAC SERVICES PROCE DURES Final Result * Cardiology Document Scan (07/19/2024 5:22 PM CDT) Anatomical Region Laterality Modality Other us Odilia Brothers MD [facility] CARDIAC SERVICES PRO [...] CEDURES Final Result * Cardiology Document Scan (07/16/2024 8:28 AM CDT) Anatomical Region Laterality Modality Other Odilia Brothers MD CV CARDIAC SERVICES PRO CEDURES Final Result * Cardiology Document Scan (07/15/2024 8:14 AM CDT) Anatomical Region Laterality Modality Other Zhen Oliveira MD CV CARDIAC SERVICES PROCEDURES F inal Result * (ABNORMAL) Protime-INR (06/11/2024) INR 2.50(A) 0.90 - 1.10 EXTERNAL LAB Blood Result [facility] Historical Provider LAB BLOOD ORDERABLES Shelley l Result EXTERNAL LAB * SCAN - LABS (05/03/2024) Twin Brar MD Final Re sult * (ABNORMAL) Protime-INR (05/03/2024) INR 2.10(A) 0.90 - 1.10 EXTERNAL LAB Blood Result [facility] Historical Provider LAB BLOOD ORDERABLES Shelley l Result EXTERNAL LAB * Lipid panel (01/08/2024 8:58 AM CDT) SCRIBED Cholesterol, Total 150 <200 EXTERNAL LAB SCRIBED HDL 39 >40 EXTERNAL LAB SCRIBED LDL 63 <100 EXTERNAL LAB SCRIBED Triglycerides 242 <150 EXTERNAL LAB Blood Historical Provider LAB BLOOD ORDERABLES Edit ed Result - Final EXTERNAL LAB * eGFR (05/16/2018 9:14 AM INSTRUMENT TECH) eGFR 49 mL/min/1.7 3 m2 JACOB Comment: Interpretive Data Reference Interval Normal >/= 90 mL/min/1.73m2 Mildly decreased* 60 - 89 mL/min/1.73m2 Mildly to moderately decreased 45 - 59 mL/min/1.73m2 Moderately to severely decreased 30 - 44 mL/min/1.73m2 Severely decreased 15 - 29 mL/min/1.73m2 Kidney Failure < 15 mL/min/1.73m2 *Relative to young adult level If -[place]ahrain[place] multiply value by 1.16. Estimated glomerular filtration [...] 2015. Blood specimen (specimen) 05/16/2018 9:14 AM INSTRUMENT TECH 05/16/2018 9:16 AM INSTRUMENT TECH Narrative JACOB - 05/16/2018 9:47 AM INSTRUMENT TECH Pari Candelario NP LAB BLOOD ORDERABLES Shelley l Result [facility] [address] Department [place] [address] * (ABNORMAL) Hemoglobin A1c (05/07/2018 7:28 PM INSTRUMENT TECH) Hgb A1C 9.0(H) 4.0 - 5.6 % JACOB Estimated Average Glucose 212 mg/dL JACOB SILVER Comment: The ADA recommends reporting an estimated Average Glucose (eAG) with all Hemoglobin A1c results using the equation derived from a study of 507 normal and diabetic adults. Minority populations were underrepresented and children were not included. (Diabetes Care 31:0370-7263, 2008). The eAG is not equivalent to a fasting glucose. Blood specimen (specimen) 05/07/2018 7:28 PM INSTRUMENT TECH 05/07/2018 8:02 PM INSTRUMENT TECH Narrative JACOB SILVER - 05/07/2018 8:18 PM INSTRUMENT TECH Luke Magana MD LAB BLOOD ORDERABLES Final R esult JACOB [address] [place] [address] from Last 3 Months or Most Recently Relevant to Health Maintenance Insurance MEDICARE [facility] MEDICARE [facility] [employer] CHOICE MEDICARE PPO Advance Directives For more information, please contact: [phone] * Full Code (Latest Code Status on File) Date Activated Date Inactivated Comments 05/18/2018 7:34 PM * Full Code Date Activated Date Inactivated Comments 05/08/2018 3:11 PM 05/16/2018 5:35 PM Care Teams Seeing Eye Dog Teacher Relationship Specialty Start Date End Date Christian Cardozo MD [address] [facility] [address] [place] [address] PCP - General Family Medicine 06/14/18
--- OUTSIDE RECORDS SUMMARY | 2024-07-23 10:52 | XMS_ITS | Clinical Summary ---
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 05/07/2018 Overview (05/08/2018): Added automatically from request for surgery [id number] S/P CABG (coronary artery bypass graft) Type 2 diabetes mellitus with other specified co mplication Encounters Date Type Department Care Team Description 07/22/2024 Orders Only [facility] Medical [facility] [address] [place] [address] Odilia Brothers MD 07/19/2024 Orders Only [facility] Medical [facility] [address] [place] [address] Zhen Oliveira MD 06/17/2024 Anticoagulation Visit [facility] Medical [facility] [address] [place] [address] Elda Mullins RN 06/13/2024 Anticoagulation Visit [facility] [address] [place] [address] Didi Wills, BEST 05/06/2024 Anticoagulation Visit [facility] [address] [facility] [address] [place] [address] Didi Wills, BEST 05/03/2024 Orders Only [facility] Health Information Management [address] [place] [address] Twin Brar MD 04/25/2024 Anticoagulation Visit [facility] Medical Group Cardiology [address] [facility] [address] [place] [address] Didi Wills RN 04/25/2024 Telephone [facility] [address] [address] [place] [address] Twin Brar MD INR results from Last [...] on file Legal Sex Female 1:11 PM HOT TOP LINER Gender Identity Not on file Sexual Orientation [...] AM CDT EGFR STAT 05/16/2018 9:14 AM HOT TOP LINER HEMOGLOBIN A1C Routine 05/07/2018 7:28 PM HOT TOP LINER from Last 3 Months or Most Recently Relevant to Health Maintenance Results * Cardiology Document Scan (07/20/2024 5:26 PM CDT) Anatomical Region Laterality Modality Other Beni Bloom MD CV CARDIAC SERVICES PROCE [...] PM CDT) Anatomical Region Laterality Modality Other Zhen [...] 0.90 - 1.10 EXTERNAL LAB Blood Result [facility] Historical Provider LAB BLOOD ORDERABLES Shelley l Result EXTERNAL LAB * SCAN - LABS (05/03/2024) Twin Brar MD Final Re sult * (ABNORMAL) Protime-INR (05/03/2024) Pathologist [facility] INR 2.10(A) 0.90 - 1.10 EXTERNAL LAB Blood Result [facility] Historical Provider LAB BLOOD ORDERABLES Shelley l Result Performing Organization Address [facility] Co de Phone Number EXTERNAL LAB * Lipid panel (01/08/2024 8:58 AM CDT) SCRIBED Cholesterol, Total 150 <200 EXTERNAL LAB SCRIBED HDL 39 >40 EXTERNAL LAB SCRIBED LDL 63 <100 EXTERNAL LAB SCRIBED Triglycerides 242 <150 EXTERNAL LAB Blood Result [facility] Historical Provider LAB BLOOD ORDERABLES Edit ed Result - Final Performing Organization Address City/[facility] Co de Phone Number EXTERNAL LAB * eGFR (05/16/2018 9:14 AM HOT TOP LINER) eGFR 49 mL/min/1.7 3 m2 JACOB SILVER Comment: Interpretive Data Reference Interval Normal >/= 90 mL/min/1.73m2 Mildly decreased* 60 - 89 mL/min/1.73m2 Mildly to moderately decreased 45 - 59 mL/min/1.73m2 Moderately to severely decreased 30 - 44 mL/min/1.73m2 Severely decreased 15 - 29 mL/min/1.73m2 Kidney Failure < 15 mL/min/1.73m2 *Relative to young adult level If -Russian multiply value by 1.16. Estimated glomerular filtration [...] 2015. Blood specimen (specimen) 05/16/2018 9:14 AM HOT TOP LINER 05/16/2018 9:16 AM HOT TOP LINER Narrative JACOB - 05/16/2018 9:47 AM HOT TOP LINER us Pari Candelario NP LAB BLOOD ORDERABLES Shelley l Result Performing Organization Address [facility] Co de Phone Number MARIEJANA [address] [address] [place] [address] * (ABNORMAL) Hemoglobin A1c (05/07/2018 7:28 PM HOT TOP LINER) Hgb A1C 9.0(H) 4.0 - 5.6 % JACOB Estimated Average Glucose 212 mg/dL JACOB Comment: The ADA recommends reporting an estimated Average Glucose (eAG) with all Hemoglobin A1c results using the equation derived from a study of 507 normal and diabetic adults. Minority populations were underrepresented and children were not included. (Diabetes Care 31:9158-7661, 2008). The eAG is not equivalent to a fasting glucose. Blood specimen (specimen) 05/07/2018 7:28 PM HOT TOP LINER 05/07/2018 8:02 PM HOT TOP LINER Narrative JACOB - 05/07/2018 8:18 PM HOT TOP LINER us Luke Magana MD LAB BLOOD ORDERABLES Final R esult Performing Organization Address City/[facility]/ZIP Co de Phone Number JACOB SILVER [address] [address] [place] [place], [place] [id number] from Last 3 Months or Most Recently Relevant to Health Maintenance Insurance MEDICARE [facility] MEDICARE [facility] [employer] CHOICE MEDICARE PPO Advance Directives For more information, please contact: [phone] * Full Code (Latest Code Status on File) Date Activated Date Inactivated Comments 05/18/2018 7:34 PM * Full Code Date Activated Date Inactivated Comments 05/08/2018 3:11 PM 05/16/2018 5:35 PM Care Teams Superintendent Pier Relationship Specialty Start Date End Date Christian Cardozo MD [address] [facility] [address] [place] [address] PCP - General Family Medicine 06/14/18
[2024-07-23 11:11] LABS: Erythrocyte Sedimentation Rate > 140 mm/hr (0-20)
== END 2024-07-23 09:41 | disposition home or self-care (01) ==
PROVIDERS: PCP Family Medicine; Visit Provider Physician Assistant
DX: D64.9 Anemia, unspecified (principal); E11.22 Type 2 diabetes mellitus with diabetic chronic kidney disease; I21.4 Non-ST elevation (NSTEMI) myocardial infarction; M79.672 Pain in left foot; N18.30 Chronic kidney disease, stage 3 unspecified; R78.81 Bacteremia
CPT/HCPCS: 36415; 73630; 80053; 84550; 85025; 85610; 85652

== ENCOUNTER 2024-07-23 14:22 | Inpatient (IN) | payer MEDICARE, SELFPAY ==
[2024-07-23] VITALS (7 sets, daily range): BP systolic 167–173; BP diastolic 62–75; PULSE 85–98; RESP 16–20; TEMP 36.2–36.8; O2SAT 96–99; BMI 28.0
--- NOTE | ~2024-07-23 | XR_ITS ---
EXAMINATION: XR chest 1V portable Exam Date/Time: 07/23/2024 17:49 CDT HISTORY: Acute kidney injury on CKD Comparison: 07/15/2024; CT cap 07/16/2024. RESULT: Lines, tubes, and devices: Median sternotomy wires, the superior wire is fractured but remains in st able position. Mediastinal surgical clips. Abandoned pacing wire. A portion of a percutaneous cholecy stostomy tube is noted projecting over the right upper quadrant. Lungs and pleura: Lordotic positioning. No focal consolidation or pneumothorax. Right hemidiaphragm eventration. Minimal right costophrenic angle blunting. Cardiomediastinal silhouette: Stable. Other: No acute osseous or upper abdominal finding. IMPRESSION: Trace right pleural effusion. Reviewed, dictated and finalized at location K.
--- NOTE | ~2024-07-23 | US_ITS ---
EXAMINATION: US renal BI DATE: 07/24/2024 10:59 INDICATION: Acute on chronic kidney disease TECHNIQUE: Multiple ultrasound grayscale images of the kidneys were obtained. COMPARISON: Ultrasound dated 03/08/[address] dated 07/16/2024 FINDINGS: The right kidney measures 11.1 x 5.9 x 5.3 cm. The left kidney measures 12.6 x 6.1 x 4.0 cm. There ar e lobular margins to the kidneys with moderate diffuse cortical thinning at both kidneys an increased fat at the bilateral renal sinuses. The kidneys demonstrate normal echogenicity. 7 mm anechoic cyst at the lower pole of the right kidney. There is no hydronephrosis in either kidney. No stones identi fied. The bladder is normal. IMPRESSION: 1. Symmetric moderate bilateral renal cortical atrophy. No hydronephrosis. Reviewed, dictated and finalized at location B.
--- NOTE | ~2024-07-23 | XR_ITS ---
Portable chest x-ray Comparison: 07/23/2024 Clinical History: CHF Findings: Lungs are clear, without focal consolidation or pleural effusion. Cardiomediastinal silho uette is stable. Bones and soft tissues are unremarkable. Impression: Clear lungs. Reviewed, dictated and finalized at location . Impression: Clear lungs.
--- OUTSIDE RECORDS SUMMARY | 2024-07-23 15:41 | XMS_ITS | Continuity of Care Document ---
Author Organization [facility] [place] [address] [place] [address] Dr Sultana [address] [place] [address] Phone Care Team Providers Care Indoor Landscape Architect Name Role Phone Salcedo OD, Tod Unavailable [...] Copied on Encounter Office/outpat ient Visit, Est [facility], [address] [place] [address] [address], [place], [place], [id number], tel:[phone] [facility] No Information Oct-2 1-201 0 Salcedo OD Tod. [address] , [address], [place], [place], [facility], [place]. tel:[phone] [facility], [address] [place] [address] [address], [place], [place], [address], tel:[phone] [facility] No Information Oct-1 5-201 0 Salcedo OD Tod. [address], [place], [address], [place]. tel:[phone] [facility], [address] [place] [address] [address], [place], [place], [address], [place] tel:[phone] [facility] No Information Oct-0 6-201 0 Sharifa Cheung. [address], [place], [address], [place]. tel:[phone] Referring Provider: Jonatan Munoz [address], [place], [facility]. tel:[phone] [facility], [address] [place] [address] [address], [place], [place], [address], [place] tel:[phone] [facility] No Information Sep-2 7-201 0 Doisy Edaye. [address] , [address], [place], [facility], . tel:[phone] Referring Provider: Jonatan Munoz, [address], [place], [facility]. tel:[phone] Office/outpat ient Visit, Est [facility], [address], [place], [place], [address], [place] tel:[phone] [facility] No Information May-2 6-201 0 Doisy Edaye. [address] , [address], [place], [facility], [place]. tel:[phone] [facility], [address] [place] [address] [address], [place], [place], [address], [place] tel:[phone] [facility] No Information May-1 2-201 0 Doisy Edaye. [address] , [address], [place], [facility], [place]. tel:[phone] [facility], [address], [place], [place], [address], [place] tel:[phone] [facility] No Information May-0 4-201 0 Doisy Edaye. [address] , [address], [place], [facility], [place]. tel:[phone] [facility], [address], [place], [place], [address], [place] tel:[phone] [facility] No Information Apr-1 9-201 0 Doisy Edaye. [address], [address], [place], [facility], [place]. tel:[phone] Office/outpat ient Visit, Est [facility], [address], [place], [place], [address], [place] tel:[phone] [facility] No Information Mar-1 5-201 0 Sharifa Cheung. [address] , [address], [place], [facility], . tel:[phone] Office/outpat ient Visit, Est [facility], [address], [place], [place], [address], [place] tel:[phone] [facility] No Information Oct-2 6-200 9 Sharifa Cheung. [address] , [address], [place], [facility], [place]. tel:[phone] Referring Provider: Jonatan Munoz, [address], [place], [facility]. tel:[phone] [facility], [address], [place], [place], [address], [place] tel:[phone] [facility] No Information Davon-2 4-200 9 Sharifa Cheung. [facility] , [address], [place], [facility], [place]. tel:[phone] Referring Provider: Jonatan Munoz, [address], [place], [facility]. tel:[phone] [facility], [address], [place], [place], [address], [place] tel:[phone] [facility] No Information Davon-2 2-200 9 Sharifa Cheung. [facility] , [address], [place], [facility], [place]. tel:[phone] Referring Provider: Jonatan Munoz, [address], [place], [facility]. tel:[phone] [facility], [address], [place], [place], [address], [place] tel:[phone] [facility] No Information 9-200 9 Sharifa Edaye. [address] , [address], [place], [facility], . tel:[phone] Office/outpat ient Visit, [facility], [address] [place] [address] [address], [place], [place], [address], [place] tel:[phone] [facility] No Information Dec-2 3-200 8 Sharifa Edaye. [address] , [address], [place], [facility], [place]. tel:[phone] Referring Provider: Jonatan Munoz, [address], [place], [facility]. tel:[phone] Office/outpat ient Visit, [facility], [address] [place] [address] [address], [place], [place], [address], [place] tel:[phone] [facility] No Information 8-200 8 Sharifa Cheung. [address] , [address], [place], [facility], [place]. tel:[phone] [facility], [address], [place], [place], [address], [place] tel:[phone] [facility] No Information 2 1-200 8 Sharifa Cheung. [address] , [address], [place], [facility], [place]. tel:[phone] [facility], [address] [place] [address] [address], [place], [place], [address], [place] tel:[phone] [facility] No Information Jun-3 0-200 8 Sharifa Cheung. [address] , [address], [place], [address], [place]. tel:[phone] Referring Provider: Jonatan Munoz, [address], [place], [facility]. tel:[phone] [facility], [address] [place] [address] [address], [place], [place], [address], [place] tel:[phone] [facility] No Information Jun-2 2-200 8 Sharifa Cheung. [address], [address], [place], [facility], [place]. tel:[phone] Referring Provider: Jonatan Munoz, [address], [place], [facility]. tel:[phone] Office/outpat ient Visit, [facility], [address], [place], [place], [address], [place] tel:[phone] [facility] No Information Nirav-0 9-200 8 Sharifa Cheung. [facility] [address], [address], [place], [facility], [place]. tel:[phone] Office/outpat ient Visit, [facility], [address], [place], [place], [address], [place] tel:[phone] [facility] No Information Oct-1 7-200 7 Sharifa Cheung. [address], [address], [place], [facility], [place]. tel:[phone] [facility], [address] [place] [address] [address], [place], [place], [address], [place] tel:[phone] [facility] No Information Leonardo-1 0-200 7 Sharifa Cheung. [address], [address], [place], [facility], [place]. tel:[phone] Referring Provider: Jonatan Munoz, [address], [place], [address]. tel:[phone] Office/outpat ient Visit, [facility], [address], [place], [place], [address], [place] tel:[phone] [facility] No Information 7 Sharifa Cheung. [address] , [address], [place], [address], [place]. tel:[phone] Referring Provider: Jonatan Munoz [facility] [address], [place], [address]. tel:[phone] Family History Family Member Type Diagnosis Age At Onset No Information Payers Payer name Insurance type Covered democrat ID Authoriza tion(s) Medicare [facility] [id number] [place] [id number] Social History Type Description Quantity Date Captured [...]
--- OUTSIDE RECORDS SUMMARY | 2024-07-23 15:41 | XMS_ITS | Encounter Summary ---
Author Organization [facility] Healthcare Address [address] [place] [address] Care Team Providers Care Computer Programming Manager Name Role Phone Christian Cardozo MD Primary Care Provider Encounter Details Date Type Department Care Team (Late st Contact Info) Description 06/29/2023 Orders Only [facility] [place] Information Management [address] [place] [address] Scanning, Provider Social History Tobacco Use Types Packs/Day Years Used Date Smoking Tobacco: Never Smokeless Tobacco: Never Alcohol Use Standard Drinks/Week Comments No 0 (1 standard drink = 0.6 oz pur e alcohol) Comments Unknown Sex and Gender Information Value Date Recorded Sex Assigned at Not on file Legal Sex Female 1:11 PM ERP PROGRAMMER Gender Identity Not on file Sexual Orientation [...] on filedocumented in this encounter Care Teams Computer Programming Manager Relationship Specialty Start Date End Date Christian Cardozo MD [address] [facility] [address] [place] [address] PCP - General Family Medicine 06/14/18 documented as of this encounter
--- OUTSIDE RECORDS SUMMARY | 2024-07-23 15:44 | XMS_ITS | Encounter Summary ---
Author Organization [facility] Address [facility] [place] [address] Care Team Providers Care Fitness Leader Name Role Phone Bianca Silverman Primary Care Provider [phone] Christian Cardozo MD Primary Care Provider [phone] Encounter Details Date Type Department Care Team (Late st Contact Info) Description 09/01/2018 Abstract [facility] CONVERSION [address] [place] [address] , Generic Conversion, Social History Tobacco Use Types Packs/Day Years Used Date Smoking Tobacco: Never Assessed Comments Unknown Sex and Gender Information Value Date Recorded Sex Assigned at Female 05/03/2024 2:10 PM PIE BAKER Legal Sex Female 5:08 PM CDT Gender Identity Not on file Sexual Orientation Not on file documented as of this encounter Plan of Treatment Not on file documented as of this encounter Visit Diagnoses Not on filedocumented in this encounter Care Teams Fitness Leader Relationship Specialty Start Date End Date Bianca Silverman FNP [address] [place] [address] PCP - General NURSE PRACTITIONER 02/22/19 03/13/24 Christian Cardozo MD [address] [facility] [address] [place] [address] PCP - General FAMILY PRACTICE 03/14/24 documented as of this encounter
--- OUTSIDE RECORDS SUMMARY | 2024-07-23 15:44 | XMS_ITS | Clinical Summary ---
Author Organization [facility] Address [address] [place] [address] Phone Care Team Providers Care Auto Body Painter Name Role Phone Christian Cardozo MD Primary [...] to complete this topic Insurance [address] [place] [address] MEDICARE C BCBS PPO MODE [place]ARR[place] [id number] Care Teams Auto Body Painter Relationship Specialty Start Date End Date Christian Cardozo MD [address] [place] [address] PCP - General Family Medicine 08/04/23
--- OUTSIDE RECORDS SUMMARY | 2024-07-23 15:44 | XMS_ITS | Clinical Summary ---
Author Organization [facility] [place] [address] Address [address] [place] [address] Care Team Providers Care Flower Pot Press Operator Name Role Phone Christian Cardozo MD Primary Care Provider Allergies No known active allergies Medications metFORMIN (GLUCOPHAGE) 500 mg tablet Take 1 tablet (500 mg total) by mouth 2 (two) times a day with meals Active citalopram (CeleXA) 10 mg tablet Take 1 tablet (10 mg total) by mouth daily Active travoprost [...] (PROVENTIL HFA,VENTOLIN HFA,PROAIR HFA) 90 mcg/actuation inhaler as needed 021 Active furosemide (LASIX) 20 mg tablet [...] mg total) by mouth daily 022 Active metoprolol tartrate (LOPRESSOR) 25 mg immediate release tablet Take 1/2 (one-half) tablet by mouth twice daily 90 tablet 3 024 Active warfarin (COUMADIN) 2 mg tabletIndications: Chronic anticoagulation TAKE 2 TABLETS BY MOUTH ONCE DAILY ON MONDAY AND MONDAY, THEN TAKE 3 TABLETS ON ALL OTHER DAYS OR DIRECTED 76 tablet 025 Active atorvastatin (LIPITOR) 80 mg tablet Take 1 tablet (80 mg total) by mouth daily 025 Active hydrALAZINE (APRESOLINE) 50 mg tablet Take 1 tablet (50 mg total) by mouth 3 (three) times a day 025 Active atorvastatin (LIPITOR) 40 mg tablet Take 1 tablet (40 mg total) by mouth daily 2024 Discontinued(A lternate therapy) hydrALAZINE (APRESOLINE) 25 mg tablet Take 1 tablet (25 mg total) by mouth 3 (three) times a day 024 2024 Discontinued(A lternate therapy) warfarin (COUMADIN) 2 mg tabletIndications: Chronic anticoagulation TAKE TWO TABLETS BY MOUTH ONCE DAILY ON MONDAY AND MONDAY, THEN TAKE 3 TABLETS ON ALL OTHER DAYS OR DIRECTED 76 tablet 025 2024 Discontinued Active Problems Problem Noted Date Diagnosed Date Hyperglycemia 05/10/2018 Delirium 05/10/2018 Atrial fibrillation with RVR 05/10/2018 Coronary artery disease of n ative artery of [place] heart with stable angina pectoris 05/07/2018 Overview (05/08/2018): Added automatically from request for surgery [id number] S/P CABG (coronary artery bypass graft) Type 2 diabetes mellitus with other specified co mplication Encounters Date Type Department Care Team Description 07/23/2024 11:30 AM CDT Office Visit [facility] Medical Group Cardiology [address] [place] [address] Macey Espinosa NP NSTEMI (non-ST elevated myocardial infarction) (HCC) (Primary Dx); Coronary artery disease of [place] artery [place] heart with stable angina pectoris; Status post coronary angiogram; Chronic anticoagulation; Hospital discharge follow-up 07/22/2024 Orders Only [facility] Medical [facility] Cardiology [address] [place] [address] [address] [place] [phone] Odilia Brothers MD 07/19/2024 Orders Only [facility] Cardiology [address] [place] [address] [address] [place] [address] [phone] Zhen Oliveira MD 06/17/2024 Anticoagulation Visit [place] [address] [place] [address] [phone] Elda Mullins RN 06/13/2024 Anticoagulation Visit [facility] Cardiology [address] [place] [address] [place] [address] [phone] Didi Wills, RN 05/06/2024 Anticoagulation Visit [facility] Cardiology [address] [place] [address] [place] [address] [phone] Didi Wills, RN 05/03/2024 Orders Only [facility] Health Information Management [address] [place] [address] Twin Brar MD 04/25/2024 Anticoagulation Visit [facility] Cardiology [address] [place] [address] [place] [address] [phone] Didi Wills, RN 04/25/2024 Telephone [facility] Cardiology [address] [place] [address] [address] [place] [phone] Twin Brar MD INR results from Last [...] on file Legal Sex Female 1:11 PM HISTOPATH TECH Gender Identity Not on file Sexual Orientation Not on file Obstetrics History Last Filed Vital Signs Vital Sign Reading Time Taken Comments Blood Pressure 130/70 07/23/2024 11:56 AM CDT Pulse 85 07/23/2024 11:56 AM CDT Temperature 36.7 C (98 F) 09/25/2018 12:07 PM CDT Respiratory Rate 14 09/25/2018 12:07 PM CDT Oxygen Saturation 95% 07/23/2024 11:56 AM CDT Inhaled Oxygen Concentration - - Weight 77.6 kg (171 lb) 07/23/2024 11:56 AM CDT Height 165.1 cm (5' 5 ) 07/23/2024 11:56 AM CDT Body Mass Index 28.46 07/23/2024 11:56 AM CDT Plan of Treatment Health Maintenance [...] 12/14/2017, 12/28/2016, Additional history exists Lipid Panel 06/11/2025 06/11/2024, 12/25, 05/13/2019, Additional history exists Pneumococcal vaccine 65+ Completed 12/14/2017, 11/27 Procedures [...] AM CDT EGFR STAT 05/16/2018 9:14 AM HISTOPATH TECH HEMOGLOBIN A1C Routine 05/07/2018 7:28 PM HISTOPATH TECH from Last 3 Months or Most Recently Relevant to Health Maintenance Results * Cardiology Document Scan (07/20/2024 5:26 PM CDT) Anatomical Region Laterality Modality Other us Beni Bloom MD CV CARDIAC SERVICES PROCE DUR Final Result * Cardiology Document Scan (07/19/2024 [...] CDT) Anatomical Region Laterality Modality Other us Ripa Kiritkumar Brothers MD CV CARDIAC SERVICES PRO CEDURES [...] 0.90 - 1.10 EXTERNAL LAB Blood Result [facility] Historical Provider LAB BLOOD ORDERABLES Shelley l Result Performing Organization Address [facility] Co de Phone Number EXTERNAL LAB * SCAN - LABS (05/03/2024) Result [facility] Twin Brar MD Final Re sult * (ABNORMAL) Protime-INR (05/03/2024) INR 2.10(A) 0.90 - 1.10 EXTERNAL LAB Blood Result [facility] Provider LAB BLOOD ORDERABLES Shelley l Result Performing Organization Address [facility] Co de Phone Number EXTERNAL LAB * Lipid panel (01/08/2024 8:58 AM CDT) SCRIBED Cholesterol, Total 150 <200 EXTERNAL LAB SCRIBED HDL 39 >40 EXTERNAL LAB SCRIBED LDL 63 <100 EXTERNAL LAB SCRIBED Triglycerides 242 <150 EXTERNAL LAB Blood Result [facility] Historical Provider LAB BLOOD ORDERABLES Edit ed Result - Final Performing Organization Address City/[facility] Co de Phone Number EXTERNAL LAB * eGFR (05/16/2018 9:14 AM HISTOPATH TECH) eGFR 49 mL/min/1.7 3 m2 [facility] Comment: Interpretive Data Reference Interval Normal >/= 90 mL/min/1.73m2 Mildly decreased* 60 - 89 mL/min/1.73m2 Mildly to moderately decreased 45 - 59 mL/min/1.73m2 Moderately to severely decreased 30 - 44 mL/min/1.73m2 Severely decreased 15 - 29 mL/min/1.73m2 Kidney Failure < 15 mL/min/1.73m2 *Relative to young adult level If -[place] multiply value by 1.16. Estimated glomerular filtration [...] 2015. Blood specimen (specimen) 05/16/2018 9:14 AM HISTOPATH TECH 05/16/2018 9:16 AM HISTOPATH TECH Narrative JACOB - 05/16/2018 9:47 AM HISTOPATH TECH Pari Candelario NP LAB BLOOD ORDERABLES Shelley l Result JACOB [address] [address] Department [place] [address] * (ABNORMAL) Hemoglobin A1c (05/07/2018 7:28 PM HISTOPATH TECH) Hgb A1C 9.0(H) 4.0 - 5.6 % [facility] SILVER Estimated Average Glucose 212 mg/dL [facility] SILVER Comment: The ADA recommends reporting an estimated Average Glucose (eAG) with all Hemoglobin A1c results using the equation derived from a study of 507 normal and diabetic adults. Minority populations were underrepresented and children were not included. (Diabetes Care 31:4586-2690, 2008). The eAG is not equivalent to a fasting glucose. Blood specimen (specimen) 05/07/2018 7:28 PM HISTOPATH TECH 05/07/2018 8:02 PM HISTOPATH TECH Narrative JACOB SILVER - 05/07/2018 8:18 PM HISTOPATH TECH Luke Magana MD LAB BLOOD ORDERABLES Final R esult J[facility]OB SIL[facility] [address] [address] Department of Laboratories [place] [phone] from Last 3 Months or Most Recently Relevant to Health Maintenance Insurance [facility] MEDICARE [facility] [employer] CHOICE MEDICARE PPO Advance Directives For more information, please contact: [phone] * Full Code (Latest Code Status on File) Date Activated Date Inactivated Comments 05/18/2018 7:34 PM * Full Code Date Activated Date Inactivated Comments 05/08/2018 3:11 PM 05/16/2018 5:35 PM Care Teams Flower Pot Press Operator Relationship Specialty Start Date End Date Christian Cardozo MD [address] [facility] [address] [place] [address] PCP - General Family Medicine 06/14/18
--- OUTSIDE RECORDS SUMMARY | 2024-07-23 15:44 | XMS_ITS | Encounter Summary ---
Author Organization [facility] Address [address] [place] [address] Phone Care Team Providers Care Splicer Machine Operator Name Role Phone Christian Cardozo MD Primary Care Provider Encounter Details Date Type Department Care Team (Latest Contact Info) Description 08/04/2023 Transcribe Orders [facility] [address] [place] [phone] Dhiraj Witt MD [address] [facility] [facility] [address] [place] [address] Encounter for other specified special examinations (Primary [...] Primary documented in this encounter Care Teams Splicer Machine Operator Relationship Specialty Start Date End Date Christian Cardozo MD [address] [place] [address] PCP - General Family Medicine 08/04/23 documented as of this encounter
--- OUTSIDE RECORDS SUMMARY | 2024-07-23 15:44 | XMS_ITS | Encounter Summary ---
Author Organization [facility] Address [facility] [place] [address] Care Team Providers Care Blindmaker Name Role Phone Bianca Silverman Primary Care Provider [phone] Christian Cardozo MD Primary Care Provider [phone] Encounter Details Date Type Department Care Team (Latest Contact Info) Description 01/30/2018 Abstract [facility] Medical Group , Tanner Souza MD Social History Tobacco Use Types Packs/Day Years Used Date Smoking Tobacco: Never Assessed Comments Unknown Sex and Gender Information Value Date Recorded Sex Assigned at Female 05/03/2024 2:10 PM MEDICAL FRONT DESK COORDINATOR Legal Sex Female 5:08 PM CDT Gender Identity Not on file Sexual Orientation Not on file documented as of this encounter Plan of Treatment Not on file documented as of this encounter Visit Diagnoses Not on filedocumented in this encounter Care Teams Blindmaker Relationship Specialty Start Date End Date Bianca Silverman FNP [facility] [place] [address] PCP - General NURSE PRACTITIONER 02/22/19 03/13/24 Christian Cardozo MD [address] [facility] [address] [place] [address] PCP - General FAMILY PRACTICE 03/14/24 documented as of this encounter
--- OUTSIDE RECORDS SUMMARY | 2024-07-23 15:45 | XMS_ITS | Encounter Summary ---
Author Organization [facility] Healthcare Address [address] [place] [address] Care Team Providers Care Combination Saw Operator Name Role Phone Christian Cardozo MD Primary Care Provider Encounter Details Date Type Department Care Team (Late st Contact Info) Description 07/19/2024 Orders Only [facility] Medical Group Cardiology [address] [phone] Zhen Oliveira MD [address] [facility] [address] [place], [place] [id number] Social History Tobacco Use Types Packs/Day Years Used Date Smoking Tobacco: Never Smokeless Tobacco: Never Alcohol Use Standard Drinks/Week Comments No 0 (1 standard drink = 0.6 oz pur e alcohol) Comments Unknown Sex and Gender Information Value Date Recorded Sex Assigned at Not on file Legal Sex Female 1:11 PM MEDICAL ART THERAPIST Gender Identity Not on file Sexual Orientation [...] AM CDT) Anatomical Region Laterality Modality Other [facility] Winnie Brothers MD CV CARDIAC SERVICES PRO CEDURES Final Result * Cardiology Document Scan (07/15/2024 8:14 AM CDT) Anatomical Region Laterality Modality Other us Zhen Oliveira MD CV CARDIAC SERVICES PROCEDURES F inal Result documented in this encounter Visit Diagnoses Not on filedocumented in this encounter Care Teams Combination Saw Operator Relationship Specialty Start Date End Date Christian Cardozo MD [address] [facility] [address] [place] [id number] PCP - General Family Medicine 06/14/18 documented as of this encounter
--- OUTSIDE RECORDS SUMMARY | 2024-07-23 15:45 | XMS_ITS | Clinical Summary ---
Author Organization [facility] Address [address] [place] [address] Care Team Providers Care Spinner Fixer Name Role Phone Christian Cardozo MD Primary Care Provider [phone] Allergies No known active allergies Medications amLODIPine [...] - 06/11/2024 11:59 PM CDT Hospital Encounter [facility] [address] [place] [address] Krissy Dumont MD Discharge Disposition: Home or Self Care (Routine Discharge) 06/11/2024 10:31 AM CDT Hospital Encounter [facility] [address] [place] [address] Christian Cardozo MD Discharge Disposition: Home or Self Care (Routine Discharge) 06/11/2024 10:29 AM CDT - 06/11/2024 10:30 AM CDT Hospital Encounter [facility] [address] [place] [address] Twin Brar MD Discharge Disposition: Home or Self Care (Routine Discharge) 06/11/2024 Orders Only [facility] [address] [place] [address] Krissy Dumont MD 06/11/2024 Travel 05/03/2024 2:15 PM GLOBE CLEANER - 05/03/2024 11:59 PM GLOBE CLEANER Hospital Encounter [facility] [address] [place] [address] Twin Brar MD Discharge Disposition: Home or Self Care (Routine Discharge) 05/03/2024 Orders Only [facility] [address] [place] [address] Twin Brar MD 05/03/2024 Travel from Last [...] Sex Assigned at Female 05/03/2024 2:10 PM GLOBE CLEANER Legal Sex Female 5:08 PM CDT Gender [...] diabetes mellitus with ESRD (end-stage renal disease) ([facility]) Inadequately controlled diabetes mellitus ([facility]) Encounter for long-term (current) use of insulin ([facility]) Other specified abnormal findings of blood chemistry Chronic kidney disease, unspecified VITAMIN D, 25 OH Routine 06/11/2024 10:3 9 AM CDT Type 2 diabetes mellitus with ESRD (end-stage renal disease) ([facility]) Inadequately controlled diabetes mellitus ([facility]) Encounter for long-term (current) use of insulin ([facility]) Other specified abnormal findings of blood chemistry Chronic kidney disease, unspecified VITAMIN B-12 Routine 06/11/2024 10:39 AM CDT Type 2 diabetes mellitus with ESRD (end-stage renal disease) ([facility]) Inadequately controlled diabetes mellitus ([facility]) Encounter for long-term (current) use of insulin ([facility]) Other specified abnormal findings of blood chemistry Chronic kidney disease, unspecified LIPID PANEL Routine 06/11/2024 10:39 AM CDT Type 2 diabetes mellitus with ESRD (end-stage renal disease) ([facility]) Inadequately controlled diabetes mellitus ([facility]) Encounter for long-term (current) use of insulin ([facility]) Other specified abnormal findings of blood chemistry Chronic kidney disease, unspecified PROTHROMBIN TIME, VENOUS Routine 06/11/2024 10:39 AM CDT Atrial fibrillation with RVR ([facility]) PROTHROMBIN TIME, VENOUS Routine 05/03/2024 2:33 PM GLOBE CLEANER Atrial fibrillation with RVR ([facility]) HEMOGLOBIN, GLYCOSYLATED Routine 05/09/2012 11:40 AM GLOBE CLEANER from Last 3 Months or Most Recently [...] ORDERABLES Final Result [facility] [address] [place] [address], [place] [phone] * (ABNORMAL) VITAMIN B-12 (06/11/2024 10:39 AM CDT) VITAMIN B12 S/P/B 1,501(H) 193 - 986 PG/ML 06/11/2024 11:29 AM CDT [facility] 06/11/2024 10:3 9 AM CDT Krissy Dumont MD LABORATORY Final Result [facility] [address] [place] [address], [place] [phone] * (ABNORMAL) PROTIME/INR, VENOUS (06/11/2024 10:39 AM [...] Final Res ult [facility] [address] [place] [address], * (ABNORMAL) LIPID PANEL (06/11/2024 10:39 AM [...] MD LABORATORY Final Result Performing Organization Address [facility]/ZIP Co de Phone Number [facility] [address] [place] [address], [place] [phone] * (ABNORMAL) VITAMIN D, 25 [place] (06/11/2024 10:39 AM CDT) VITAMIN D 25 HYDROXY S/P/B 25(L) 30 - 100 NG/ML 06/11/2024 11:42 AM CDT [facility] Comment: INTERPRETATION DEFICIENT <20 INSUFFICIENT 20-29 SUFFICIENT 30-100 06/11/2024 10:3 9 AM CDT Krissy Dumont MD LABORATORY Final Result Performing Organization Address [facility] Co de Phone Number [facility] [address] [place] [address], [place] [phone] * (ABNORMAL) HEMOGLOBIN, GLYCOSYLATED (05/09/2012 11:40 AM GLOBE CLEANER) Pathologist [facility] HGB A1C 6.9 INCREASED RISK OF DIABETES <5.7% NON-DIABETES 5.7-6.4% INCREASED RISK FOR FUTURE DIABETES > OR = 6.5 CONSISTENT WITH DIABETES STANDARDS OF MEDICAL CARE IN DIABETES-2010 DIABETES CARE, 33(SUPP 1): S1-S61,2010 (H) <5.7 % [facility] TO EPIC CONVERSION 05/09/2012 11:4 0 AM GLOBE CLEANER 05/09/2012 11:40 AM GLOBE CLEANER Narrative [facility] TO EPIC CONVERSION - 05/09/2012 12:21 PM GLOBE CLEANER Result Communication: No patient communication needed at this time Ahsan Cash MD LABORATORY Final Result Performing Organization Address City/[facility]/ZIP Co de Phone Number [facility] TO EPIC CONVERSION from Last 3 Months or Most Recently Relevant to Health Maintenance Insurance [employer] Care Teams Spinner Fixer Relationship Specialty Start Date End Date Christian Cardozo MD [address] [place] [address] PCP - General FAMILY PRACTICE 03/14/24
--- OUTSIDE RECORDS SUMMARY | 2024-07-23 15:45 | XMS_ITS | Encounter Summary ---
Author Organization [facility] Healthcare Address [address] [place] [address] Care Team Providers Care Maintenance And Custodian Supervisor Name Role Phone Christian Cardozo MD Primary Care Provider Reason for Visit * Reason Comments Follow-up 6 mo Encounter Details Date Type Department Care Team (Late st Contact Info) Description 07/23/2024 11:30 AM CDT Office Visit [facility] Medical Group Cardiology [address] [address] Macey Espinosa NP [address] [facility] [address] [place] [address] NSTEMI (non-ST elevated myocardial infarction) (HCC) (Primary Dx); Coronary artery disease of [place] artery of [place] heart with stable angina pectoris; Status post coronary angiogram; Chronic anticoagulation; Hospital discharge follow-up Social History Tobacco Use Types Packs/Day Years Used Date Smoking Tobacco: Never Smokeless Tobacco: Never Tobacco Cessation:Counseling Given: Not Answered Alcohol Use Standard Drinks/Week Comments No 0 (1 standard drink = 0.6 oz pur e alcohol) Comments Unknown Sex and Gender Information Value Date Recorded Sex Assigned at Not on file 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 Gender Identity Not on file Sexual Orientation Not on file documented as of this encounter Last Filed Vital Signs Vital Sign Reading Time Taken Comments Blood Pressure 130/70 07/23/2024 11:56 AM CDT Pulse 85 07/23/2024 11:56 AM CDT Temperature - - Respiratory Rate - - Oxygen Saturation 95% 07/23/2024 11:56 AM CDT Inhaled Oxygen Concentration - - Weight 77.6 kg (171 lb) 07/23/2024 11:56 AM CDT Height 165.1 cm (5' 5 ) 07/23/2024 11:56 AM CDT Body Mass Index 28.46 07/23/2024 11:56 AM CDT documented in this encounter Progress Notes * Macey Espinosa NP - 07/23/2024 11:30 AM CDT Images from the original note were not included. [facility] Medical Group Cardiology [address] [place] [address] Date of Visit: 07/23/2024 Patient ID: Gill Kowalski [id number] Chief Complaint Patient presents with Follow-up 6 mo Gill Kowalski is a 83 y.o. female who is an established patient of Dr. Brar with a history of CAD and PAF coming to the office for hospital follow-up after NSTEMI. History of Present Illness: Gill Kowalski is a 83 y.o. female who presents for follow up of coronary artery disease and atrial fibrillation. This is a patient who presented to [facility] with acute coronary syndrome in April of 2018. The patient was evaluated [facility] and transferred to [facility] for surgical revascularization. He she received a GILMER graft to the LAD saphenous vein graft sequentially to the 1st and 2nd marginal branches of the circumflex and a saphenous vein graft to the diagonal. The right coronary was not significantly diseased at the time of her evaluation. She underwent successful surgery and was discharged after 8 days in the hospital. The patient had some postoperative atrial fibrillation which was treated with amiodarone Which was then subsequently discontinued. The patient was then seen by the nurse practitioner in July of 2018 after presenting to [facility] andbeing transferred to [facility] which she presented with shortness of breath and was found to have a p ulmonary embolism in the left lung. She was treated with systemic anticoagulation with Xarelto and was clinically stable when seen in the office. According to the records her anticoagulant medicationhas been shifted to Coumadin presumably for cost reasons. The patient was reporting ongoing symptoms with some KAUFFMAN an echocardiogram was therefore repeated that showed her ejection fraction to be normal at 55%. She did have modest aortic valve stenosis with a valve area of 1.6. In the early part [id number] she had an emergency room visit with what appeared to be a classic vasovagal syncopal episode.She has had these episodes in her adult life off and on chronically. The patient did have a historyof previous DVT and PE as well so I recommended staying on anticoagulation indefinitely. She has chronic lower extremity venous insufficiency as the etiology of this 01/16/[address] Brar: She presents to the office today for a scheduled six-month appointment. I saw her last in April of this year after she had an episode of shortness of breath and wheezing for which she was seen in the emergency room in [place]. I did not perceive thereto be a cardiac problem at that time. Shortly before that she had a parotid gland mass removed surgi florentin. Overall she is doing very well. She does not have any new cardiovascular symptoms or concerns. She as stated above continues to experience chronic KAUFFMAN which I do not think is a direct cardiac problem these symptoms began after her pulmonary embolism that is described in the past. She continues to take warfarin for systemic anticoagulation in his compliant with follow-up of that. 07/23/2024 hospital follow-up visit with MIRROR SPECIALIST: She was hospitalized at [facility] on 07/15/2024 with abdominal pain, N/V/D. She was treated for acute cholecystitis and bacteremia. Cardiology was consulted for an elevated troponin (0.107, 0.331) and she was seen by Dr. Oliveira. Echocardiogram showed normal LV size and systolic function EF 50-55%, grade 1 diastolic dysfunction, normal RV function, moderate LAE, moderate MR, mild TR, mild AV calcification but no or AI was seen. She proceeded to have coronary and bypass angiogram performed by Dr. Brothers on 07/19/2024 and it showed that CHRISTIAN to the LAD was patent, SVG to diagonal was patent, sequential SVG to om 1 and om 2 patent. A mid RCA lesion of about 80% was seen and felt to be the culprit for the NSTEMI (see cath report for full details on disease in the [place] coronary arteries). Because the RCA is a calcified vessel and ostial disease, PCIwas not advised at [facility]. In addition, contrast load needs to be minimize due to her CKD and shewas advised time to recover from the bacteremia and cholecystitis before proceeding with PCI. Plan outpatient PCI at another institution once recovered. She was started on clopidogrel and discharged on 07/21/2024. She returns to the office today for hospital follow-up. She is accompanied by her friend. She denies any pain or swelling at the femoral artery puncture site. The day after discharge she developed anacute left anterior foot pain. She went to PCP yesterday who ordered an x-ray. PCP is also [facility]. She denies any chest pain pressure tightness or heaviness. She anticipates havingthe biliary tube in place for about 3 weeks, she still needs to schedule the follow- up appointment with the surgeon. Medical History: Past Medical History: Diagnosis Date Arthritis Diabetes mellitus (HCC) Hyperlipidemia Hypertension Past Surgical History: Procedure Laterality Date CATARACT EXTRACTION, BILATERAL DILATION AND CURETTAGE OF UTERUS SHOULDER SURGERY Social History Tobacco Use Smoking Status Never Smokeless Tobacco Never Social History Tobacco Use Smoking status: Never Smokeless tobacco: Never Substance and Sexual Activity Drug use: No Sexual activity: Defer Alcohol Use: Not on file Family History Problem Relation Age of Onset Cancer Mother Cancer Father Review of Systems Constitutional: Negative for malaise/fatigue, weight gain and weight loss. Cardiovascular: Positive for dyspnea on exertion (Chronic, unchanged). Negative for chest pain, legswelling, near-syncope, orthopnea, palpitations, paroxysmal nocturnal dyspnea and syncope. Respiratory: Negative for cough and sleep disturbances due to breathing. Hematologic/Lymphatic: Negative for bleeding problem. Does not bruise/bleed easily. Vital Signs: BP 130/70 (BP Location: Right arm, Patient Position: Sitting) Pulse 85 Ht 165.1 cm (5' 5 ) Wt77.6 kg (171 lb) SpO2 95% BMI 28.46 kg/m?? Physical Exam Constitutional: General: She is not in acute distress. Appearance: She is well-developed. HENT: Head: Normocephalic and atraumatic. Eyes: General: No scleral icterus. Conjunctiva/sclera: Conjunctivae normal. Neck: Vascular: No JVD. Trachea: No tracheal deviation. Cardiovascular: Rate and Rhythm: Normal rate and regular rhythm. Heart sounds: Normal heart sounds. No murmur heard. Comments: Left DP and PT pulse verified with handheld Doppler Pulmonary: Effort: Pulmonary effort is normal. No respiratory distress. Breath sounds: Normal breath sounds. Musculoskeletal: Comments: Left anterior foot has a small bruise but no edema or erythema, skin warm dry and intact. Skin: General: Skin is warm and dry. Neurological: Mental Status: She is alert and oriented to person, place, and time. Psychiatric: Mood and Affect: Mood normal. Behavior: Behavior normal. No Known Allergies Current Outpatient Medications: albuterol HFA (PROVENTIL HFA,VENTOLIN HFA,PROAIR HFA) 90 mcg/actuation inhaler, as needed, Disp: , Rfl: amLODIPine (NORVASC) 10 mg tablet, Take 1 tablet (10 mg total) by mouth daily, Disp: , Rfl: aspirin 81 mg chewable tablet, Take 1 tablet (81 mg total) by mouth daily, Disp: , Rfl: atorvastatin (LIPITOR) 80 mg tablet, Take 1 tablet (80 mg total) by mouth daily, Disp: , Rfl: cetirizine (ZyrTEC) 10 mg tablet, Take 1 tablet (10 mg total) by mouth daily, Disp: , Rfl: citalopram (CeleXA) 10 mg tablet, Take 1 tablet (10 mg total) by mouth daily, Disp: , Rfl: FeroSuL 325 mg (65 mg iron) tablet, Take 1 tablet (325 mg total) by mouth daily, Disp: , Rfl: furosemide (LASIX) 20 mg tablet, TAKE 1 TABLET BY MOUTH ONCE DAILY IN THE MORNING, Disp: , Rfl: hydrALAZINE (APRESOLINE) 50 mg tablet, Take 1 tablet (50 mg total) by mouth 3 (three) times a day, Disp: , Rfl: irbesartan (AVAPRO) 300 mg tablet, Take 1 tablet (300 mg total) by mouth nightly, Disp: , Rfl: lansoprazole (PREVACID) 15 mg capsule, Take 1 capsule (15 mg total) by mouth daily, Disp: , Rfl: latanoprost (XALATAN) 0.005 % ophthalmic solution, Administer 1 drop into both eyes nightly, Disp: , Rfl: loratadine (CLARITIN) 10 mg tablet, Take 1 tablet (10 mg total) by mouth daily, Disp: , Rfl: metFORMIN (GLUCOPHAGE) 500 mg tablet, Take 1 tablet (500 mg total) by mouth 2 (two) times a day with meals, Disp: , Rfl: metoprolol tartrate (LOPRESSOR) 25 mg immediate release tablet, Take 1/2 (one- half) tablet by mouthtwice daily, Disp: 90 tablet, Rfl: 3 spironolactone (ALDACTONE) 25 mg tablet, Take 1 tablet (25 mg total) by mouth daily, Disp: , Rfl: travoprost (TRAVATAN Z) 0.004 % drops, Administer into both eyes nightly, Disp: , Rfl: warfarin (COUMADIN) 2 mg tablet, TAKE 2 TABLETS BY MOUTH ONCE DAILY ON MONDAY AND MONDAY, THEN TAKE3 TABLETS ON ALL OTHER DAYS OR DIRECTED, Disp: 76 tablet, Rfl: 0 Lab Results Component Value Date POTASSIUM 4.2 05/16/2018 BUNSER 27 (H) 05/16/2018 CREATININE 1.09 05/16/2018 CHOL 147 05/07/2018 TRIG 262 (H) 05/07/2018 LDLCALC 53 05/07/2018 HDL 42 05/07/2018 Lab Results Component Value Date WBC 8.0 05/16/2018 HGB 7.9 (L) 05/16/2018 HCT 25.2 (L) 05/16/2018 MCV 93.7 05/16/2018 No results found for this or any previous visit (from the past 4 hours). Lab Results Component Value Date POCCHOL 148 05/13/2019 POCHDL 44 05/13/2019 POCTRIG 161 05/13/2019 POCLDL 71 05/13/2019 POCNONHDL 104 05/13/2019 POCCHLPL 148 05/13/2019 Assessment: Diagnoses and all orders for this visit: NSTEMI (non-ST elevated myocardial infarction) (HCC) (Primary) Coronary artery disease of [place] artery of [place] heart with stable angina pectoris Status post coronary angiogram Chronic anticoagulation Hospital discharge follow-up Plan/Recommendations: She was recently evaluated for a NSTEMI in the setting of cholecystitis and bacteremia. The NSTEMI was asymptomatic. Dr. Brothers performed angiogram and advised PCI on the non bypassed RCA once she hasrecovered from her current illness. This is advised to be performed [facility]. Dye load needs to be minimized as much as possible due to CKD. I asked the patient to return to the office for reassessment with me in 4 weeks. At that time if she is recovered bacteremia and cholecystitis, we will plan her PCI. The patient verbalized understanding and agreed. Warfarin was held for her recent cardiac catheterization. I advised her to get an INR check next Monday. Left foot pain is being evaluated by PCP. Arterial circulation is intact. 07/23/2024 [place] Sanchez- Nurse Practitioner with [facility] Cardiology This note is dictated and transcribed using SEAT 4a Direct Software. Adobe Cq Developer variancesmay occur. Despite proofreading, typographical errors may occur. documented in this encounter Plan of Treatment Not on file documented as of this encounter Visit Diagnoses Diagnosis NSTEMI (non-ST elevated myocardial infarction) (HCC)- Primary Acute myocardial infarction, subendocardial infarction, episode of care unspecified Coronary artery disease of [place] artery of [place] heart with stable angina pectoris Status post coronary angiogram Other postprocedural status Chronic anticoagulation Encounter for long-term (current) use of anticoagulants Hospital discharge follow-up Other follow-up examination documented in this encounter Discontinued Medications Medication Sig Discontinue Reason Start Date End Da te atorvastatin (LIPITOR) 40 mg tablet Take 1 tablet (40 mg total) by mouth daily Alternate therapy 07/23/2024 hydrALAZINE (APRESOLINE) 25 mg tablet Take 1 tablet (25 mg total) by mouth 3 (three) times a day Alternate therapy 07/25/2023 07/23/2024 documented as of this encounter Historical Medications * This list may reflect changes made after this encounter. hydrALAZINE (APRESOLINE) 50 mg tablet Take 1 tablet (50 mg total) by mouth 3 (three) times a day 05/30/2024 atorvastatin (LIPITOR) 80 mg tablet Take 1 tablet (80 mg total) by mouth daily 06/23/2024 added in this encounter Care Teams Maintenance And Custodian Supervisor Relationship Specialty Start Date End Date Christian Cardozo MD [address] [place] [address] PCP - General Family Medicine 06/14/18 documented as of this encounter
--- OUTSIDE RECORDS SUMMARY | 2024-07-23 15:45 | XMS_ITS | Encounter Summary ---
Author Organization [facility] Healthcare Address [address] [place] [address] Care Team Providers Care Denial Resolution Specialist Name Role Phone Christian Cardozo MD Primary Care Provider Encounter Details Date Type Department Care Team (Late st Contact Info) Description 10/02/2023 Orders Only [facility] Health Information Management [address] [place] [id number] Scanning, Provider Social History Tobacco Use Types Packs/Day Years Used Date Smoking Tobacco: Never Smokeless Tobacco: Never Alcohol Use Standard Drinks/Week Comments No 0 (1 standard drink = 0.6 oz pur e alcohol) Comments Unknown Sex and Gender Information Value Date Recorded Sex Assigned at Not on file 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 [address] [place] [address] PCP - General Family Medicine 06/14/18 documented as of this encounter
--- OUTSIDE RECORDS SUMMARY | 2024-07-23 15:45 | XMS_ITS | Clinical Summary ---
Author Organization [facility] Address [address], [place] [address] Phone Care Team Providers Care Case Management Manager Name Role Phone Unavailable Primary Care Provider [...] Comments Blood Pressure 152/80 04/23/2018 12:01 AM TON CONTAINER SHIPPER Pulse - - Temperature 36.7 C (98.1 F) 04/23/2018 12:01 AM TON CONTAINER SHIPPER Respiratory Rate - - Oxygen Saturation - - Inhaled Oxygen Concentration - - Weight 79.4 kg (175 lb) 04/23/2018 12:01 AM TON CONTAINER SHIPPER Height 162.6 cm (5' 4 ) 04/23/2018 12:01 AM TON CONTAINER SHIPPER Body Mass Index 30.04 04/23/2018 12:01 AM TON CONTAINER SHIPPER Plan of Treatment Not on file
--- OUTSIDE RECORDS SUMMARY | 2024-07-23 15:45 | XMS_ITS | Encounter Summary ---
Author Organization [facility] Healthcare Address [address] [place] [address] Care Team Providers Care Drop Board Worker Name Role Phone Christian Cardozo MD Primary Care Provider Encounter Details Date Type Department Care Team (Late st Contact Info) Description 07/22/2024 Orders Only [facility] Medical Group Cardiology [address] [place] [address] Odilia Brothers MD [address] [address] Social History Tobacco Use Types Packs/Day Years Used Date Smoking Tobacco: Never Smokeless Tobacco: Never Alcohol Use Standard Drinks/Week Comments No 0 (1 standard drink = 0.6 oz pur e alcohol) Comments Unknown Sex and Gender Information Value Date Recorded Sex Assigned at Not on file 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
--- OUTSIDE RECORDS SUMMARY | 2024-07-23 15:45 | XMS_ITS | Encounter Summary ---
Author Organization [facility] Address [facility] [place] [address] Care Team Providers Care Club Former Name Role Phone Bianca Silverman Primary Care Provider [phone] Christian Cardozo MD Primary Care Provider [phone] Encounter Details Date Type Department Care Team (Late st Contact Info) Description 01/27/2014 Abstract [facility] CONVERSION [address] [place] [address] , Generic ConversionMD Social History Tobacco Use Types Packs/Day Years Used Date Smoking Tobacco: Never Assessed Comments Unknown Sex and Gender Information Value Date Recorded Sex Assigned at Female 05/03/2024 2: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
--- OUTSIDE RECORDS SUMMARY | 2024-07-23 15:45 | XMS_ITS | Referral Summary ---
Author Organization [place] [address] Address [address] [facility] [address] [place] [address] Care Team Providers Care Waitstaff Name Role Phone Christian Cardozo MD Primary Care Provider Encounters Date Type Department Care Team Description 07/23/2024 11:30 AM CDT Office Visit [facility] Medical [facility] Cardiology [address] [place] [address] [address] [place] [phone] Macey Espinosa NP NSTEMI (non-ST elevated myocardial infarction) (HCC) (Primary Dx); Coronary artery disease of [place] artery of [place]ock heart with stable angina pectoris; Status post coronary angiogram; Chronic anticoagulation; Hospital discharge follow-up 07/22/2024 Orders Only [facility] Medical [facility] Cardiology [address] [place] [address] [address] [place] [phone] Odilia Brothers MD 07/19/2024 Orders Only [facility] Cardiology [address] [place] [address] [address] [place] [phone] Zhen Oliveira MD 06/17/2024 Anticoagulation Visit [facility] Cardiology [address] [place] [address] [address] [place] [phone] Elda Mullins, BEST 06/13/2024 Anticoagulation Visit [facility]iology [address] [place] [address] [address] [place] [phone] Didi Wills RN 05/06/2024 Anticoagulation Visit [facility] Cardiology [address] [place] [phone] Didi Wills RN 05/03/2024 Orders Only [facility] Health Information Management [address] [place] [address] Twin Brar MD 04/25/2024 Anticoagulation Visit [facility] Medical Group Cardiology [address] [place] [address] Didi Wills RN 04/25/2024 Telephone [facility] Medical [facility] Cardiology [address] [place] [phone] Twin Brar MD INR results from Last [...] HFA,PROAIR HFA) 90 mcg/actuation inhaler as needed Active furosemide (LASIX) 20 mg tablet TAKE 1 TABLET BY MOUTH ONCE DAILY IN THE MORNING Active amLODIPine (NORVASC) 10 mg tablet Take 1 tablet (10 mg total) by mouth daily Active lansoprazole (PREVACID) 15 mg capsule Take [...] artery disease of n ative artery of levelock heart with stable angina pectoris 05/07/2018 Overview (05/08/2018): Added automatically from request for surgery [id number] S/P CABG (coronary artery bypass graft) Type [...] on file Legal Sex Female 1:11 PM SPECIAL PROCEDURE TECHNOLOGIST Gender Identity Not on file Sexual Orientation [...] 07/23/2024 11:56 AM CDT Plan of Treatment Not on file [...] AM CDT EGFR STAT 05/16/2018 9:14 AM SPECIAL PROCEDURE TECHNOLOGIST HEMOGLOBIN A1C Routine 05/07/2018 7:28 PM SPECIAL PROCEDURE TECHNOLOGIST from Last 3 Months or Most Recently [...] 2.50(A) 0.90 - 1.10 EXTERNAL LAB Blood Riki Perez MD LAB BLOOD ORDERABLES Shelley l Result EXTERNAL LAB * SCAN - LABS (05/03/2024) Twin Brar MD Final Re sult * (ABNORMAL) Protime-INR (05/03/2024) INR 2.10(A) 0.90 - 1.10 EXTERNAL LAB Blood Historical Provider MD LAB BLOOD ORDERABLES Shelley l Result EXTERNAL LAB * Lipid panel (01/08/2024 8:58 AM CDT) SCRIBED Cholesterol, Total 150 <200 EXTERNAL LAB SCRIBED HDL 39 >40 EXTERNAL LAB SCRIBED LDL 63 <100 EXTERNAL LAB SCRIBED Triglycerides 242 <150 EXTERNAL LAB Blood Historical Provider MD LAB BLOOD ORDERABLES Edit ed Result - Final Performing Organization Address [facility] Co de Phone Number EXTERNAL LAB * eGFR (05/16/2018 9:14 AM SPECIAL PROCEDURE TECHNOLOGIST) eGFR 49 mL/min/1.7 3 m2 JACOB Comment: Interpretive Data Reference Interval Normal >/= 90 mL/min/1.73m2 Mildly decreased* 60 - 89 mL/min/1.73m2 Mildly to moderately decreased 45 - 59 mL/min/1.73m2 Moderately to severely decreased 30 - 44 mL/min/1.73m2 Severely decreased 15 - 29 mL/min/1.73m2 Kidney Failure < 15 mL/min/1.73m2 *Relative to young adult level If -Singaporean multiply value by 1.16. Estimated glomerular filtration [...] 2015. Blood specimen (specimen) 05/16/2018 9:14 AM SPECIAL PROCEDURE TECHNOLOGIST 05/16/2018 9:16 AM SPECIAL PROCEDURE TECHNOLOGIST Narrative JACOB - 05/16/2018 9:47 AM SPECIAL PROCEDURE TECHNOLOGIST us Pari Candelario NP LAB BLOOD ORDERABLES Shelley l Result Performing Organization Address [facility]/ZIP Co de Phone Number JACOB SILVER [address] [address] [facility] [place] [address] * (ABNORMAL) Hemoglobin A1c (05/07/2018 7:28 PM SPECIAL PROCEDURE TECHNOLOGIST) Hgb A1C 9.0(H) 4.0 - 5.6 % JACOB Estimated Average Glucose 212 mg/dL JACOB Comment: The ADA recommends reporting an estimated Average Glucose (eAG) with all Hemoglobin A1c results using the equation derived from a study of 507 normal and diabetic adults. Minority populations were underrepresented and children were not included. (Diabetes Care 31:4086-2481, 2008). The eAG is not equivalent to a fasting glucose. Blood specimen (specimen) 05/07/2018 7:28 PM SPECIAL PROCEDURE TECHNOLOGIST 05/07/2018 8:02 PM SPECIAL PROCEDURE TECHNOLOGIST Narrative JACOB - 05/07/2018 8:18 PM SPECIAL PROCEDURE TECHNOLOGIST us Luke Magana MD LAB BLOOD ORDERABLES Final R esult Performing Organization Address [facility] Co de Phone Number JACOB SILVER [address] [place] [address] from Last 3 Months or Most Recently Relevant to Health Maintenance Insurance MEDICARE [facility] MEDICARE [facility] HUMANA CHOICE MEDICARE PPO Advance Directives For more information, please contact: [phone] * Full Code (Latest Code Status on File) Date Activated Date Inactivated Comments 05/18/2018 7:34 PM * Full Code Date Activated Date Inactivated Comments 05/08/2018 3:11 PM 05/16/2018 5:35 PM Care Teams Waitstaff Relationship Specialty Start Date End Date Christian Cardozo MD [address] [facility] [address] [place] [address] PCP - General Family Medicine 06/14/18
[2024-07-23 16:58] LABS: Basophils Percent Auto 0.5 % (0.2-1.2); Eosinophils Absolute Auto 0.1 K/mm3 (0-0.3); Eosinophils Percent Auto 1.2 % (0-4.4); Hematocrit 30.3 % (37.0-47.0); Hemoglobin 9.8 g/dL (12.0-15.0); Immature Granulocyte Absolute 0.13 K/mm3 (0.00-0.031); Immature Granulocyte Percent A 1.6 % (0-0.5); Lymphocytes Absolute Auto 1.16 K/mm3 (0.9-3.2); Lymphocytes Percent Auto 14.5 % (18.3-44.2); Mean Corpuscular HGB Conc 32.3 g/dl (32-36); Mean Corpuscular Hemoglobin 30.2 pg (26-34); Mean Corpuscular Volume 93.2 fl (80-100); Monocytes Absolute Auto 0.6 K/mm3 (0.1-0.6); Monocytes Percent Auto 7.6 % (2.6-8.5); Neutrophils Percent Auto 74.6 % (45.5-73.1); Platelet Count Result 391 k/mm3 (150-375); Red Blood Count 3.25 M/mm3 (4.2-5.4); Red Cell Distribution Width 12.9 % (11.5-14.5)
[2024-07-23 17:10] LABS: Alanine Aminotransferase 47 U/L (6-35); Albumin Level 3.7 g/dL (3.5-5.1); Alkaline Phosphatase 115 U/L (38-126); Anion Gap 13 mmol/L (4-12); Aspartate Amino Transferase 37 U/L (14-36); Bilirubin,Total 0.9 mg/dL (0.2-1.3); Blood Urea Nitrogen 52 mg/dL (7-17); Calcium 8.7 mg/dL (8.4-10.2); Carbon Dioxide 20 mmol/L (22-30); Chloride 101 mmol/L (98-107); Estimated CRCL calculation 9 ml/min; Estimated Glomerular Filt Rate 9; Glucose 114 mg/dL (65-110); Potassium 4.2 mmol/L (3.4-5.0); Sodium 134 mmol/L (137-145)
[2024-07-23 17:11] LABS: Lactic Acid Reflex 0.8 mmol/L (0.7-2.0)
[2024-07-23 17:17] LABS: INR 1.5; Partial Thromboplastin Time 38.4 Seconds (22.3-36.8); Prothrombin Time 18.6 Seconds (11.1-14.7)
[2024-07-23 17:19] LABS: NT Pro B Type Natriuretic Pept 14100 pg/mL (19.9-100)
--- OUTSIDE RECORDS SUMMARY | 2024-07-23 17:39 | XMS_ITS | Encounter Summary ---
Author Organization [facility] Address [address] [place] [address] Care Team Providers Care Human Service Specialist Name Role Phone Christian Cardozo MD Primary Care Provider Encounter Details Date Type Department Care Team (Late st Contact Info) Description 06/29/2023 Orders Only [facility] Health Information Management [address] [place] [address] Scanning, Provider Social History Tobacco Use Types Packs/Day Years Used Date Smoking Tobacco: Never Smokeless Tobacco: Never Alcohol Use Standard Drinks/Week Comments No 0 (1 standard drink = 0.6 oz pur e alcohol) Comments Unknown Sex and Gender Information Value Date Recorded Sex Assigned at Not on file Legal Sex 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
--- OUTSIDE RECORDS SUMMARY | 2024-07-23 17:40 | XMS_ITS | Clinical Summary ---
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 05/07/2018 Overview (05/08/2018): Added automatically from request for surgery [id number] S/P CABG (coronary artery bypass graft) Type 2 diabetes mellitus with other specified co mplication Encounters Date Type Department Care Team Description 07/23/2024 11:30 AM CDT Office Visit [facility] Medical Group Cardiology [address] [place] [address] Macey Espinosa NP NSTEMI (non-ST elevated myocardial infarction) (HCC) (Primary Dx); 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; Status post coronary angiogram; Chronic anticoagulation; Hospital discharge follow-up 07/22/2024 Orders Only [facility] Medical [facility] Cardiology [address] [place] [address] [address] [place] [phone] Odilia Brothers MD 07/19/2024 Orders Only [facility] Cardiology [address] [place] [address] [address] [place] [phone] Zhen Oliveira MD 06/17/2024 Anticoagulation Visit [place] [address] [address] [place] [phone] Elda Mullins RN 06/13/2024 Anticoagulation Visit [facility] Cardiology [address] [place] [address] [place] [phone] Didi Wills, RN 05/06/2024 Anticoagulation Visit [facility] Cardiology [address] [place] [address] [place] [address] [phone] Didi Wills, RN 05/03/2024 Orders Only [facility] Health Information Management [address] [place] [address] Twin Brar MD 04/25/2024 Anticoagulation Visit [facility] Cardiology [address] [place] [address] [place] [address] [phone] Didi Wills, RN 04/25/2024 Telephone [facility] Cardiology [address] [place] [address] [address] [place] [phone] Twin Brar MD INR results from Last [...] on file Legal Sex Female 1:11 PM TRENCH DIGGING MACHINE OPERATOR Gender Identity Not on file Sexual Orientation [...] AM CDT EGFR STAT 05/16/2018 9:14 AM TRENCH DIGGING MACHINE OPERATOR HEMOGLOBIN A1C Routine 05/07/2018 7:28 PM TRENCH DIGGING MACHINE OPERATOR from Last 3 Months or Most Recently [...] 0.90 - 1.10 EXTERNAL LAB Blood Result [facility] Historical Provider LAB BLOOD ORDERABLES Shelley l Result Performing Organization Address [facility] Co de Phone Number EXTERNAL LAB * SCAN - LABS (05/03/2024) Result [facility] Twin Brar MD Final Re sult * (ABNORMAL) Protime-INR (05/03/2024) INR 2.10(A) 0.90 - 1.10 EXTERNAL LAB Blood Result [facility] Provider LAB BLOOD ORDERABLES Shelley l Result Performing Organization Address [facility] Co de Phone Number EXTERNAL LAB * Lipid panel (01/08/2024 8:58 AM CDT) SCRIBED Cholesterol, Total 150 <200 EXTERNAL LAB SCRIBED HDL 39 >40 EXTERNAL LAB SCRIBED LDL 63 <100 EXTERNAL LAB SCRIBED Triglycerides 242 <150 EXTERNAL LAB Blood Result [facility] Historical Provider LAB BLOOD ORDERABLES Edit ed Result - Final Performing Organization Address [facility] Co de Phone Number EXTERNAL LAB * eGFR (05/16/2018 9:14 AM TRENCH DIGGING MACHINE OPERATOR) eGFR 49 mL/min/1.7 3 m2 JACOB SILVER Comment: Interpretive Data Reference Interval Normal >/= 90 mL/min/1.73m2 Mildly decreased* 60 - 89 mL/min/1.73m2 Mildly to moderately decreased 45 - 59 mL/min/1.73m2 Moderately to severely decreased 30 - 44 mL/min/1.73m2 Severely decreased 15 - 29 mL/min/1.73m2 Kidney Failure < 15 mL/min/1.73m2 *Relative to young adult level If -[place] Citizen multiply value by 1.16. Estimated glomerular filtration [...] 2015. Blood specimen (specimen) 05/16/2018 9:14 AM TRENCH DIGGING MACHINE OPERATOR 05/16/2018 9:16 AM TRENCH DIGGING MACHINE OPERATOR Narrative JACOB - 05/16/2018 9:47 AM TRENCH DIGGING MACHINE OPERATOR Pari Candelario NP LAB BLOOD ORDERABLES Shelley l Result JACOB [address] [address] Department [place] [address] * (ABNORMAL) Hemoglobin A1c (05/07/2018 7:28 PM TRENCH DIGGING MACHINE OPERATOR) Hgb A1C 9.0(H) 4.0 - 5.6 % JACOB SILVER Estimated Average Glucose 212 mg/dL JACOB SILVER Comment: The ADA recommends reporting an estimated Average Glucose (eAG) with all Hemoglobin A1c results using the equation derived from a study of 507 normal and diabetic adults. Minority populations were underrepresented and children were not included. (Diabetes Care 31:1688-1761, 2008). The eAG is not equivalent to a fasting glucose. Blood specimen (specimen) 05/07/2018 7:28 PM TRENCH DIGGING MACHINE OPERATOR 05/07/2018 8:02 PM TRENCH DIGGING MACHINE OPERATOR Narrative JACOB SILVER - 05/07/2018 8:18 PM TRENCH DIGGING MACHINE OPERATOR Luke Magana MD LAB BLOOD ORDERABLES Final R esult JACOB SILVER [address] [address] Department of Laboratories [place] [id number] from Last 3 Months or Most Recently Relevant to Health Maintenance Insurance [facility] MEDICARE [facility] HUMANA CHOICE MEDICARE PPO Advance Directives For more information, please contact: [phone] * Full Code (Latest Code Status on File) Date Activated Date Inactivated Comments 05/18/2018 7:34 PM * Full Code Date Activated Date Inactivated Comments 05/08/2018 3:11 PM 05/16/2018 5:35 PM Care Teams Township Clerk Relationship Specialty Start Date End Date Christian Cardozo MD [address] [facility] [address] [place] [address] PCP - General Family Medicine 06/14/18
--- OUTSIDE RECORDS SUMMARY | 2024-07-23 17:40 | XMS_ITS | Encounter Summary ---
Author Organization [facility] Address [facility] [place] [address] Care Team Providers Care Turfgrass Technician Name Role Phone Bianca Silverman Primary Care Provider [phone] Christian Cardozo MD Primary Care Provider [phone] Encounter Details Date Type Department Care Team (Late st Contact Info) Description 09/01/2018 Abstract [facility] CONVERSION [address] [place] [address] , Generic Conversion, Social History Tobacco Use Types Packs/Day Years Used Date Smoking Tobacco: Never Assessed Comments Unknown Sex and Gender Information Value Date Recorded Sex Assigned at Female 05/03/2024 2:10 PM 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
--- OUTSIDE RECORDS SUMMARY | 2024-07-23 17:40 | XMS_ITS | Encounter Summary ---
Author Organization [facility] Address [facility] [place] [address] Care Team Providers Care Service Administrator Name Role Phone Bianca Silverman Primary Care Provider Christian Cardozo MD Primary Care Provider [phone] Encounter Details Date Type Department Care Team (Latest Contact Info) Description 01/30/2018 Abstract [facility] Medical Group , Tanner Souza MD Social History Tobacco Use Types Packs/Day Years Used Date Smoking Tobacco: Never Assessed Comments Unknown Sex and Gender Information Value Date Recorded Sex Assigned at Female 05/03/2024 2:10 PM COOLER OPERATOR Legal Sex Female 5:08 PM CDT Gender Identity Not on file Sexual Orientation Not on file documented as of this encounter Plan of Treatment Not on file documented as of this encounter Visit Diagnoses Not on filedocumented in this encounter Care Teams Service Administrator Relationship Specialty Start Date End Date Bianca Silverman FNP [facility] [place] [place] [address] PCP - General NURSE PRACTITIONER 02/22/19 03/13/24 Christian Cardozo MD [address] [facility] [address] [place] [address] PCP - General FAMILY PRACTICE 03/14/24 documented as of this encounter
--- OUTSIDE RECORDS SUMMARY | 2024-07-23 17:40 | XMS_ITS | Referral Summary ---
Author Organization [place] [address] Address [address] [facility] [address] [place] [address] Care Team Providers Care Machine Set Up Operator Name Role Phone Christian Cardozo MD Primary Care Provider Encounters Date Type Department Care Team Description 07/23/2024 11:30 AM CDT Office Visit [facility] Medical [facility] Cardiology [address] [place] [address] [address] [place] [phone] Macey Espinosa NP NSTEMI (non-ST elevated myocardial infarction) (HCC) (Primary Dx); Coronary artery disease of [place] artery of [place] heart with stable angina pectoris; Status post coronary angiogram; Chronic anticoagulation; Hospital discharge follow-up 07/22/2024 Orders Only [facility] Medical [facility] Cardiology [address] [place] [address] [address] [place] [phone] Odilia Brothers MD 07/19/2024 Orders Only [facility] Cardiology [address] [place] [address] [address] [place] [phone] Zhen Oliveira MD 06/17/2024 Anticoagulation Visit [facility] Cardiology [address] [place] [address] [address] [place] [phone] Elda Mullins, BEST 06/13/2024 Anticoagulation Visit [facility] Cardiology [address] [place] [address] [address] [place] [phone] Didi Wills RN 05/06/2024 Anticoagulation Visit [facility] Cardiology [address] [place] [phone] Didi Wills RN 05/03/2024 Orders Only [facility] Health Information Management [address] [place] [address] Twin Brar MD 04/25/2024 Anticoagulation Visit [facility] Medical Group Cardiology [address] [place] [phone] Didi Wills RN 04/25/2024 Telephone [facility] Medical Group Cardiology [address] [place] [phone] Twin Brar MD INR results from Last [...] artery disease of n ative artery of [place] heart with stable angina pectoris 05/07/2018 Overview (05/08/2018): Added automatically from request for surgery [id number] S/P CABG (coronary artery bypass graft) Type [...] on file Legal Sex Female 1:11 PM 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 GRADE 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 Gender Identity Not on file Sexual Orientation [...] AM CDT EGFR STAT 05/16/2018 9:14 AM 6TH GRADE TEACHER HEMOGLOBIN A1C Routine 05/07/2018 7:28 PM 6TH GRADE TEACHER from Last 3 Months or Most Recently [...] ed Result - Final Performing Organization Address [facility] Co de Phone Number EXTERNAL LAB * eGFR (05/16/2018 9:14 AM 6TH GRADE TEACHER) eGFR 49 mL/min/1.7 3 m2 JACOB Comment: Interpretive Data Reference Interval Normal >/= 90 mL/min/1.73m2 Mildly decreased* 60 - 89 mL/min/1.73m2 Mildly to moderately decreased 45 - 59 mL/min/1.73m2 Moderately to severely decreased 30 - 44 mL/min/1.73m2 Severely decreased 15 - 29 mL/min/1.73m2 Kidney Failure < 15 mL/min/1.73m2 *Relative to young adult level If -Monegasque multiply value by 1.16. Estimated glomerular filtration [...] 2015. Blood specimen (specimen) 05/16/2018 9:14 AM 6TH GRADE TEACHER 05/16/2018 9:16 AM 6TH GRADE TEACHER Narrative JACOB - 05/16/2018 9:47 AM 6TH GRADE TEACHER us Pari Candelario NP LAB BLOOD ORDERABLES Shelley l Result Performing Organization Address [facility]/ZIP Co de Phone Number JACOB SILVER [address] [address] [facility] [place] [address] * (ABNORMAL) Hemoglobin A1c (05/07/2018 7:28 PM 6TH GRADE TEACHER) Hgb A1C 9.0(H) 4.0 - 5.6 % JACOB Estimated Average Glucose 212 mg/dL JACOB Comment: The ADA recommends reporting an estimated Average Glucose (eAG) with all Hemoglobin A1c results using the equation derived from a study of 507 normal and diabetic adults. Minority populations were underrepresented and children were not included. (Diabetes Care 31:6925-6762, 2008). The eAG is not equivalent to a fasting glucose. Blood specimen (specimen) 05/07/2018 7:28 PM 6TH GRADE TEACHER 05/07/2018 8:02 PM 6TH GRADE TEACHER Narrative JACOB - 05/07/2018 8:18 PM 6TH GRADE TEACHER us Luke Magana MD LAB BLOOD ORDERABLES Final R esult Performing Organization Address [facility] Co de Phone Number JACOB SILVER [address] [place] [address] from Last 3 Months or Most Recently Relevant to Health Maintenance Insurance MEDICARE [facility] MEDICARE [facility] HUMANA CHOICE MEDICARE PPO Advance Directives For more information, please contact: [phone] * Full Code (Latest Code Status on File) Date Activated Date Inactivated Comments 05/18/2018 7:34 PM * Full Code Date Activated Date Inactivated Comments 05/08/2018 3:11 PM 05/16/2018 5:35 PM Care Teams Machine Set Up Operator Relationship Specialty Start Date End Date Christian Cardozo MD [address] [facility] [address] [place] [address] PCP - General Family Medicine 06/14/18
--- OUTSIDE RECORDS SUMMARY | 2024-07-23 17:41 | XMS_ITS | Clinical Summary ---
Author Organization [facility] Address [address] [place] [address] Care Team Providers Care Special Education Coordinator Name Role Phone Christian Cardozo MD Primary Care Provider [phone] Allergies No known active allergies Medications amLODIPine [...] - 06/11/2024 11:59 PM CDT Hospital Encounter [facility] [address] [place] [address] Krissy Dumont MD Discharge Disposition: Home or Self Care (Routine Discharge) 06/11/2024 10:31 AM CDT Hospital Encounter [facility] [address] [place] [address] Christian Cardozo MD Discharge Disposition: Home or Self Care (Routine Discharge) 06/11/2024 10:29 AM CDT - 06/11/2024 10:30 AM CDT Hospital Encounter [facility] [address] [place] [address] Twin Brar MD Discharge Disposition: Home or Self Care (Routine Discharge) 06/11/2024 Orders Only [facility] [address] [place] [address] Krissy Dumont MD 06/11/2024 Travel 05/03/2024 2:15 PM OCCUPATIONAL NURSE - 05/03/2024 11:59 PM OCCUPATIONAL NURSE Hospital Encounter [facility] [address] [place] [address] Twin Brar MD Discharge Disposition: Home or Self Care (Routine Discharge) 05/03/2024 Orders Only [facility] [address] [place] [address] Twin Brar MD 05/03/2024 Travel from Last [...] Sex Assigned at Female 05/03/2024 2:10 PM OCCUPATIONAL NURSE Legal Sex Female 5:08 PM CDT Gender [...] renal disease) ([facility] Inadequately controlled diabetes mellitus ([facility]) Encounter for long-term (current) use of insulin ([facility]) Other specified abnormal findings of blood chemistry Chronic kidney disease, unspecified VITAMIN D, 25 OH Routine 06/11/2024 10:3 9 AM CDT Type 2 diabetes mellitus with ESRD (end-stage renal disease) ([facility]) Inadequately controlled diabetes mellitus ([facility]) Encounter for long-term (current) use of insulin ([facility]) Other specified abnormal findings of blood chemistry Chronic kidney disease, unspecified VITAMIN B-12 Routine 06/11/2024 10:39 AM CDT Type 2 diabetes mellitus with ESRD (end-stage renal disease) ([facility]) Inadequately controlled diabetes mellitus ([facility]) Encounter for long-term (current) use of insulin ([facility]) Other specified abnormal findings of blood chemistry Chronic kidney disease, unspecified LIPID PANEL Routine 06/11/2024 10:39 AM CDT Type 2 diabetes mellitus with ESRD (end-stage renal disease) ([facility]) Inadequately controlled diabetes mellitus ([facility]) Encounter for long-term (current) use of insulin ([facility]) Other specified abnormal findings of blood chemistry Chronic kidney disease, unspecified PROTHROMBIN TIME, VENOUS Routine 06/11/2024 10:39 AM CDT Atrial fibrillation with RVR ([facility]) PROTHROMBIN TIME, VENOUS Routine 05/03/2024 2:33 PM OCCUPATIONAL NURSE Atrial fibrillation with RVR ([facility]) HEMOGLOBIN, GLYCOSYLATED Routine 05/09/2012 11:40 AM OCCUPATIONAL NURSE from Last 3 Months or Most Recently Relevant to Health Maintenance Results * (ABNORMAL) MICROALBUMIN CREATININE RATIO (MICROALBUMIN/ALBUMIN) (06/11/2024 10:50 AM CDT) CREATININE (U) 90.5 28 - 217 MG/DL 06/11/2024 11:28 AM CDT [facility] MICROALBUMIN (U) 75.9(H) <2.0 mg/dL 06/11/2024 11:28 AM CDT [facility] ALBUMIN/CREAT RATIO 838.8(H) <30.0 MG/G 06/11/2024 11:28 AM CDT [facility] URINE SPECIMEN / Unknown 06/11/2024 10:50 AM CDT Krissy Dumont MD URINE ORDERABLES Final Result [facility] [address] [place] [address], [place] [phone] * (ABNORMAL) VITAMIN B-12 (06/11/2024 10:39 AM CDT) VITAMIN B12 S/P/B 1,501(H) 193 - 986 PG/ML 06/11/2024 11:29 AM CDT [facility] 06/11/2024 10:3 9 AM CDT Krissy Dumont MD LABORATORY Final Result [facility] [address] [place] [address], [place] [phone] * (ABNORMAL) PROTIME/INR, VENOUS (06/11/2024 10:39 AM CDT) Only the most recent of2 resultswithin the time period is included. PROTIME 28.2(H) 9.1 - 12.4 SEC 06/11/2024 11:09 AM CDT [facility] INR 2.5 06/11/2024 11:09 AM CDT [facility] Comment: Recommend INR ranges for Oral Anticoagulant Therapy: Mechanical Cardiac Values 2.5-3.5 All others indication 2.0-3.0 06/11/2024 10:3 9 AM CDT us Twin Brar MD LABORATORY Final Res ult [facility] [address] [place] [address], * (ABNORMAL) LIPID PANEL (06/11/2024 10:39 AM CDT) CHOLESTEROL 162 <200.0 MG/DL 06/11/2024 11:04 AM CDT [facility] TRIGLYCERIDES 173(H) <150 MG/DL 06/11/2024 11:04 AM T [facility] HDL 44 >40.0 MG/DL 06/11/2024 11:04 AM T [facility] LDL (CALCULATED) 83 <100 MG/DL 06/11/2024 11:04 AM T [facility] NON HDL CHOLESTEROL 118 <130 MG/DL 06/11/2024 11:04 AM T [facility] CHOL/HDL RATIO 3.7 0.0 - 4.5 06/11/2024 11:04 AM T [facility] VLDL CALCULATION 35 5 - 55 MG/DL 06/11/2024 11:04 AM T [facility] LIPID INTERPRETATION 06/11/2024 11:04 AM T [facility] Comment: NIH CONCENSUS REPORT RECOMMENDATIONS: [...] MD LABORATORY Final Result Performing Organization Address [facility]/ZIP Co de Phone Number [facility] [address] [place] [address], [place] [phone] * (ABNORMAL) VITAMIN D, 25 OH (06/11/2024 10:39 AM CDT) VITAMIN D 25 HYDROXY S/P/B 25(L) 30 - 100 NG/ML 06/11/2024 11:42 AM CDT [facility] Comment: INTERPRETATION DEFICIENT <20 INSUFFICIENT 20-29 SUFFICIENT 30-100 06/11/2024 10:3 9 AM CDT Krissy Dumont MD LABORATORY Final Result Performing Organization Address [facility] Co de Phone Number [facility] [address] [place] [address], [place] [phone] * (ABNORMAL) HEMOGLOBIN, GLYCOSYLATED (05/09/2012 11:40 AM OCCUPATIONAL NURSE) Pathologist [facility] HGB A1C 6.9 INCREASED RISK OF DIABETES <5.7% NON-DIABETES 5.7-6.4% INCREASED RISK FOR FUTURE DIABETES > OR = 6.5 CONSISTENT WITH DIABETES STANDARDS OF MEDICAL CARE IN DIABETES-2010 DIABETES CARE, 33(SUPP 1): S1-S61,2010 (H) <5.7 % [facility] TO EPIC CONVERSION 05/09/2012 11:4 0 AM OCCUPATIONAL NURSE 05/09/2012 11:40 AM OCCUPATIONAL NURSE Narrative [facility] TO EPIC CONVERSION - 05/09/2012 12:21 PM OCCUPATIONAL NURSE Result Communication: No patient communication needed at this time Ahsan Cash MD LABORATORY Final Result Performing Organization Address City/[facility]/ZIP Co de Phone Number [facility] TO EPIC CONVERSION from Last 3 Months or Most Recently Relevant to Health Maintenance Insurance [employer] Care Teams Special Education Coordinator Relationship Specialty Start Date End Date Christian Cardozo MD [address] [place] [address] PCP - General FAMILY PRACTICE 03/14/24
--- OUTSIDE RECORDS SUMMARY | 2024-07-23 17:41 | XMS_ITS | Continuity of Care Document ---
Author Organization [facility] Address [address] [place] [address] Dr Sult[address] [place] [phone] Phone Care Team Providers Care Preload Supervisor Name Role Phone Salcedo OD, Tod Unavailable [...] Copied on Encounter Office/outpat ient Visit, Est [facility], [address] [place] [address] [address], [place], [place], [id number], tel:[phone] SEC [facility] No Information Oct-2 1-201 0 Salcedo OD Tod. [address] [facility] , [address], [place], [place], [facility], [place]. tel:[phone] [facility], [address] [place] [address] [address], [place], [place], [address], tel:[phone] SEC [facility] No Information Oct-1 5-201 0 Salcedo OD Tod. [address] [facility] [address], [place], [address], [place]. tel:[phone] [facility], [address] [place] [address] [address], [place], [place], [address], [place] tel:[phone] SEC [facility] No Information Oct-0 6-201 0 Sharifa Cheung. [address] [facility], [place], [address], [place]. tel:[phone] Referring Provider: Jonatan Munoz [address] [facility] [address], [place], [facility]. tel:[phone] [facility], [address] [place] [address] [address], [place], [place], [address], [place] tel:[phone] [facility] No Information Sep-2 7-201 0 Doisy Edaye. [address] [facility] , [address], [place], [facility], . tel:[phone] Referring Provider: Jonatan Munoz, [address], [place], [facility]. tel:[phone] Office/outpat ient Visit, Est [facility], [address], [place], [place], [address], [place] tel:[phone] [facility] No Information May-2 6-201 0 Doisy Edaye. [address] [facility] , [address], [place], [facility], [place]. tel:[phone] [facility], [address] [place] [address] [address], [place], [place], [address], [place] tel:[phone] [facility] No Information May-1 2-201 0 Doisy Edaye. [address] [facility] , [address], [place], [facility], [place]. tel:[phone] [facility], [address], [place], [place], [address], [place] tel:[phone] [facility] No Information May-0 4-201 0 Doisy Edaye. [address] [facility] , [address], [place], [facility], [place]. tel:[phone] [facility], [address], [place], [place], [address], [place] tel:[phone] [facility] No Information Apr-1 9-201 0 Doisy Edaye. [address] [facility] [address], [address], [place], [facility], [place]. tel:[phone] Office/outpat ient Visit, Est [facility], [address], [place], [place], [address], [place] tel:[phone] SEC [facility] No Information Mar-1 5-201 0 Sharifa Cheung. [address] , [address], [place], [facility], . tel:[phone] Office/outpat ient Visit, Est [facility], [address], [place], [place], [address], [place] tel:[phone] SEC [facility] No Information Oct-2 6-200 9 Sharifa Cheung. [address] , [address], [place], [facility], [place]. tel:[phone] Referring Provider: Jonatan Munoz, [address], [place], [facility]. tel:[phone] [facility], [address], [place], [place], [address], [place] tel:[phone] SEC [facility] No Information Davon-2 4-200 9 Shraifa Cheung. [facility] , [address], [place], [facility], [place]. tel:[phone] Referring Provider: Jonatan Munoz, [address], [place], [facility]. tel:[phone] [facility], [address], [place], [place], [address], [place] tel:[phone] SEC [facility] No Information Davon-2 2-200 9 Sharifa Cheung. [facility] , [address], [place], [facility], [place]. tel:[phone] Referring Provider: Jonatan Munoz, [address], [place], [facility]. tel:[phone] [facility], [address], [place], [place], [address], [place] tel:[phone] SEC [facility] No Information 9-200 9 Sharifa Edaye. [address] [facility] , [address], [place], [facility], . tel:[phone] Office/outpat ient Visit, [facility], [address] [place] [address] [address], [place], [place], [address], [place] tel:[phone] SEC [facility] No Information Dec-2 3-200 8 Sharifa Edaye. [address] [facility] , [address], [place], [facility], [place]. tel:[phone] Referring Provider: Jonatan Munoz, [address] [facility] [address], [place], [facility]. tel:[phone] Office/outpat ient Visit, [facility], [address] [place] [address] [address], [place], [place], [address], [place] tel:[phone] SEC [facility] No Information 8-200 8 Sharifa Cheung. [address] [facility] , [address], [place], [facility], [place]. tel:[phone] [facility], [address], [place], [place], [address], [place] tel:[phone] SEC [facility] No Information 2 1-200 8 Sharifa Cheung. [address] [facility] , [address], [place], [facility], [place]. tel:[phone] [facility], [address] [place] [address] [address], [place], [place], [address], [place] tel:[phone] SEC [facility] No Information Jun-3 0-200 8 Sharifa Cheung. [address] , [address], [place], [address], [place]. tel:[phone] Referring Provider: Jonatan Munoz, [address], [place], [facility]. tel:[phone] [facility], [address] [place] [address] [address], [place], [place], [address], [place] tel:[phone] SEC [facility] No Information Jun-2 2-200 8 Sharifa Cheung. [address], [address], [place], [facility], [place]. tel:[phone] Referring Provider: Jonatan Munoz, [address], [place], [facility]. tel:[phone] Office/outpat ient Visit, [facility], [address], [place], [place], [address], [place] tel:[phone] SEC [facility] No Information Nirav-0 9-200 8 Sharifa Cheung. [facility] [address], [address], [place], [facility], [place]. tel:[phone] Office/outpat ient Visit, [facility], [address], [place], [place], [address], [place] tel:[phone] SEC [facility] No Information Oct-1 7-200 7 Sharifa Cheung. [address], [address], [place], [facility], [place]. tel:[phone] [facility], [address] [place] [address] [address], [place], [place], [address], [place] tel:[phone] SEC [facility] No Information Leonardo-1 0-200 7 Sharifa Cheung. [address], [address], [place], [facility], [place]. tel:[phone] Referring Provider: Jonatan Munoz, [address], [place], [address]. tel:[phone] Office/outpat ient Visit, [facility], [address], [place], [place], [address], [place] tel:[phone] [facility] No Information 7 Sharifa Cheung. [address] [facility] , [address], [place], [address], [place]. tel:[phone] Referring Provider: Jonatan Munoz [facility] [address], [place], [address]. tel:[phone] Family History Family Member Type Diagnosis Age At Onset No Information Payers Payer name Insurance type Covered green party ID Authoriza tion(s) Medicare [facility] [id number] [place] Commercial [id number] Social History Type Description Quantity Date Captured [...]
--- OUTSIDE RECORDS SUMMARY | 2024-07-23 17:41 | XMS_ITS | Encounter Summary ---
Author Organization [facility] Address [address] [place] [address] Care Team Providers Care Commercial Escrow Assistant Name Role Phone Christian Cardozo MD Primary Care Provider Encounter Details Date Type Department Care Team (Late st Contact Info) Description 10/02/2023 Orders Only [facility] Health Information Management [address] [place] [address] Scanning, Provider Social History Tobacco Use Types Packs/Day Years Used Date Smoking Tobacco: Never Smokeless Tobacco: Never Alcohol Use Standard Drinks/Week Comments No 0 (1 standard drink = 0.6 oz pur e alcohol) Comments Unknown Sex and Gender Information Value Date Recorded Sex Assigned at Not on file 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
--- OUTSIDE RECORDS SUMMARY | 2024-07-23 17:41 | XMS_ITS | Clinical Summary ---
Author Organization [facility] Address [address] [address] Phone Care Team Providers Care Inventory Control Coordinator Name Role Phone Unavailable Primary Care Provider [...] Comments Blood Pressure 152/80 04/23/2018 12:01 AM SOLDERING MACHINE SETTER Pulse - - Temperature 36.7 C (98.1 F) 04/23/2018 12:01 AM SOLDERING MACHINE SETTER Respiratory Rate - - Oxygen Saturation - - Inhaled Oxygen Concentration - - Weight 79.4 kg (175 lb) 04/23/2018 12:01 AM SOLDERING MACHINE SETTER Height 162.6 cm (5' 4 ) 04/23/2018 12:01 AM SOLDERING MACHINE SETTER Body Mass Index 30.04 04/23/2018 12:01 AM SOLDERING MACHINE SETTER Plan of Treatment Not on file
--- OUTSIDE RECORDS SUMMARY | 2024-07-23 17:41 | XMS_ITS | Encounter Summary ---
Author Organization [facility] Address [facility] [place] [address] Care Team Providers Care Moisture Machine Tender Name Role Phone Bianca Silverman Primary Care Provider [phone] Christian Cardozo MD Primary Care Provider [phone] Encounter Details Date Type Department Care Team (Late st Contact Info) Description 01/27/2014 Abstract [facility] CONVERSION [address] [place] [address] , Generic ConversionMD Social History Tobacco Use Types Packs/Day Years Used Date Smoking Tobacco: Never Assessed Comments Unknown Sex and Gender Information Value Date Recorded Sex Assigned at Female 05/03/2024 2:10 PM ORTHOPEDICS NURSE Legal Sex Female 5:08 PM CDT Gender Identity Not on file Sexual Orientation Not on file documented as of this encounter Plan of Treatment Not on file documented as of this encounter Visit Diagnoses Not on filedocumented in this encounter Care Teams Moisture Machine Tender Relationship Specialty Start Date End Date Bianca Silverman FNP [facility] [place] [address] PCP - General NURSE PRACTITIONER 02/22/19 03/13/24 Christian Cardozo MD [address] [facility] [address] [place] [address] PCP - General FAMILY PRACTICE 03/14/24 documented as of this encounter
--- OUTSIDE RECORDS SUMMARY | 2024-07-23 17:41 | XMS_ITS | Encounter Summary ---
Author Organization [facility] Address [address] [place] [address] Care Team Providers Care Landscape Management Technician Name Role Phone Christian Cardozo MD Primary Care Provider Encounter Details Date Type Department Care Team (Late st Contact Info) Description 07/22/2024 Orders Only [facility] Cardiology [address] [place] [address] Odilia Brothers MD [address] [address] Social History Tobacco Use Types Packs/Day Years Used Date Smoking Tobacco: Never Smokeless Tobacco: Never Alcohol Use Standard Drinks/Week Comments No 0 (1 standard drink = 0.6 oz pur e alcohol) Comments Unknown Sex and Gender Information Value Date Recorded Sex Assigned at Not on file 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
--- OUTSIDE RECORDS SUMMARY | 2024-07-23 17:41 | XMS_ITS | Encounter Summary ---
Author Organization [facility] Address [address] [place] [address] Care Team Providers Care Case Management Rn Name Role Phone Christian Cardozo MD Primary Care Provider Encounter Details Date Type Department Care Team (Late st Contact Info) Description 07/19/2024 Orders Only [facility] Cardiology [address] [phone] Zhen Oliveira MD [address] [facility] [address] [place], [place] [id number] Social History Tobacco Use Types Packs/Day Years Used Date Smoking Tobacco: Never Smokeless Tobacco: Never Alcohol Use Standard Drinks/Week Comments No 0 (1 standard drink = 0.6 oz pur e alcohol) Comments Unknown Sex and Gender Information Value Date Recorded Sex Assigned at Not on file 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 Sex Female 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 Gender Identity Not on file Sexual Orientation [...] AM CDT) Anatomical Region Laterality Modality Other [facility] Winnie Brothers MD [facility] C[facility] PRO CEDURES Final Result * Cardiology Document Scan (07/15/2024 8:14 AM CDT) Anatomical Region Laterality Modality Other us Zhen Oliveira MD CV CARDIAC SERVICES PROCEDURES F inal Result documented in this encounter Visit Diagnoses Not on filedocumented in this encounter Care Teams Case Management Rn Relationship Specialty Start Date End Date Christian Cardozo MD [address] [facility] [address] [place] [id number] PCP - General Family Medicine 06/14/18 documented as of this encounter
--- OUTSIDE RECORDS SUMMARY | 2024-07-23 17:41 | XMS_ITS | Encounter Summary ---
Author Organization [facility] Healthcare Address [address] [place] [address] Care Team Providers Care Poiser Name Role Phone Christian Cardozo MD Primary Care Provider Reason for Visit * Reason Comments Follow-up 6 mo Encounter Details Date Type Department Care Team (Late st Contact Info) Description 07/23/2024 11:30 AM CDT Office Visit [facility] Cardiology [address] [id number] Macey Espinosa NP [address] [facility] [address] [place] [address] NSTEMI (non-ST elevated myocardial infarction) (HCC) (Primary Dx); Coronary artery disease of [place] artery of [place] heart with stable angina pectoris; Status post [...] file Legal 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 [facility] [address] [place] [address] Date of Visit: 07/23/2024 Patient ID: Gill [...] This is a patient who presented to [facility] with acute coronary syndrome in April of 2018. The patient was evaluated [place] and transferred to [facility] for surgical revascularization. He she received a [...] in July of [address] [facility] andbeing transferred to [place] which she presented with shortness of breath [...] area of 1.6. In the early part [id number] she had an emergency room visit with [...] was seen in the emergency room in [place]. I did not perceive thereto be a [...] of that. 07/23/2024 hospital follow-up visit with LDR RN: She was hospitalized at [place] on 07/15/2024 with abdominal pain, N/V/D. She [...] for full details on disease in the [place] coronary arteries). Because the RCA is a calcified vessel and ostial disease, PCIwas not advised at [place]. In addition, contrast load needs to be [...] who ordered an x-ray. PCP is also formerly [facility], [facility]. She denies any chest pain pressure tightness [...] infarction) (HCC) (Primary) Coronary artery disease of [place] artery of [place] heart with stable angina pectoris Status post coronary angiogram Chronic anticoagulation Hospital discharge follow-up Plan/Recommendations: She was recently evaluated for a NSTEMI in the setting of cholecystitis and bacteremia. The NSTEMI was asymptomatic. Dr. Brothers performed angiogram and advised PCI on the non bypassed RCA once she hasrecovered from her current illness. This is advised to be performed [facility]. Dye load needs to be minimized as [...] intact. 07/23/2024 [place] Sanchez- Nurse Practitioner with [facility] Cardiology This note is dictated and transcribed using [employer] Direct Software. Diagnostics Sales Developer variancesmay occur. Despite proofreading, typographical errors may occur. documented in this encounter Plan of Treatment Not on file documented as of this encounter Visit Diagnoses Diagnosis NSTEMI (non-ST elevated myocardial infarction) (HCC)- Primary Acute myocardial infarction, subendocardial infarction, episode of care unspecified Coronary artery disease of [place] artery of [place] heart with stable angina pectoris Status post [...] 06/23/2024 added in this encounter Care Teams Poiser Relationship Specialty Start Date End Date Christian Cardozo MD [address] [place] [address] PCP - General Family Medicine 06/14/18 documented as of this encounter
--- NOTE | 2024-07-23 17:44 | ED_ITS ---
HPI - General Adult General Chief complaint: Recheck/Abnormal Lab/Rx Stated complaint: Kidney lab values low -sent by Dr Cardozo Time Seen by Provider: 07/23/24 16:24 History of Present Illness HPI narrative: 83-year-old female presents to the emergency department for evaluation for acute knee worsening kidney function. Patient was just recently admitted to the hospital for cholecystitis. Patient does have a cholecystostomy drain in place. Patient has been taking Augmentin 500/125 mg q.8 hours since discharge. Patient did have outpatient follow-up with her primary care physician was found to have acutely worsening kidney function. Patient reports that she has had some possible decreased p.o. intake but denies any nausea vomiting or abdominal pain and states that she is attempting to stay hydrated. Related Data Home Medications ?Medication ?Instructions ?Recorded ?Confirmed ?Last Taken ?Type aspirin 81 mg tablet,delayed 81 mg PO DAILY 06/05/19 07/23/24 07/22/24 History release loratadine 10 mg tablet 10 mg PO DAILY 09/11/19 07/23/24 07/22/24 History warfarin 2 mg tablet 6 mg PO DAILY 09/11/19 07/23/24 07/22/24 History metoprolol tartrate 25 mg tablet 25 mg PO BID 07/25/23 07/23/24 07/22/24 History latanoprost 0.005 % eye drops 1 drp EACH EYE HS 08/09/23 07/23/24 07/22/24 History metformin 500 mg tablet 500 mg PO BID 08/09/23 07/23/24 07/22/24 History atorvastatin 80 mg tablet 80 mg PO QPM 07/15/24 07/23/24 07/22/24 History cetirizine 10 mg tablet 10 mg PO DAILY 07/15/24 07/23/24 07/22/24 History hydralazine 50 mg tablet 25 mg PO TID 07/15/24 07/23/24 07/22/24 History lansoprazole 15 mg capsule,delayed 15 mg PO DAILY 07/15/24 07/23/24 07/22/24 History release atorvastatin 40 mg tablet 40 mg PO QPM 07/23/24 07/23/24 07/22/24 History furosemide 20 mg tablet See Rx Instructions PO .COMPLEX 07/23/24 07/23/24 Unknown History hydralazine 25 mg tablet 25 mg PO TID 07/23/24 07/23/24 07/22/24 History Allergies Allergy/AdvReac Type Severity Reaction Status Date / Time No Known Allergies Allergy Verified 07/23/24 08:33 Review of Systems 2 Review of Systems: All systems reviewed & are unremarkable except as noted in HPI and below PMFSH Past Medical History Medical History Elbow tendonitis Foot fracture Heart disease Glaucoma Cataracts, bilateral Back pain Pulmonary embolism Distal radius fracture Diabetes 1.5, managed as type 2 Depression Arthritis Myocardial infarction (lateral wall) HTN (hypertension) History of pulmonary embolism Hearing loss Anxiety History of fracture of wrist Surgical History Surgical History 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 H/O heart bypass surgery H/O sinus surgery H/O shoulder surgery H/O cataract extraction History of bunionectomy Family History Family History Other Diabetes mellitus Family history of arthritis Family history of malignant neoplasm Social History Social History Social History: Smoking status: Never smoker Second hand tobacco smoke exposure: No Alcohol intake: never Substance use: never Substance use type: does not use Do You Feel Safe in your Home?: Yes Lack of Transportation: No Lack of Food: Never True Current Housing: I Have Housing Concerned About Future Housing: No Difficulty Paying Gas/Electric Bills: No Difficulty Paying for Meds: No Currently Unemployed: No Education: High School Diploma/GED Difficulty w/ Childcare or Family Care: No Living arrangements: alone Occupation/Education: occupation Additional occupation/education comments: [employer]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 Gender identity (if verbalized by the patient): Female Sexual Orientation (if Verbalized by the Patient): Straight or Heterosexual Exam 2 Narrative: APPEARANCE: Well appearing, no pain, no distress, well-nourished. HEAD: normocephalic, atraumatic. EYES: PERRLA/EOMI, conjunctivae clear. NOSE: Normal no drainage EARS:TMS clear with good light reflex. THROAT: Pharynx clear, no exudate. NECK: Supple. No adenopathy, no masses. RESPIRATORY: Airway patent, respirations nonlabored. Clear to auscultation bilaterally, no rales, rhonchi, wheezing. CARDIOVASCULAR: Regular rate and rhythm without murmurs rubs or gallops. ABDOMINAL: Well-appearing cholecystostomy drain with non cloudy bile MUSCULOSKELETAL: Moves all extremities. Strength/ROM intact, No edema, No calf tenderness. NEURO: Alert. Cranial nerves II through XII intact. Good gait. Good coordination SKIN: Warm, dry. Normal Color Course Vital Signs Vital signs: Vital Signs Temperature 97.1 F L 07/23/24 14:25 Pulse Rate 85 07/23/24 14:25 Respiratory Rate 16 07/23/24 14: Blood Pressure 167/62 H 07/23/24 14:25 Pulse Oximetry 99 07/23/24 14: Temperature 97.1 F L 07/23/24 14:25 Pulse Rate 85 07/23/24 14:25 Respiratory Rate 16 07/23/24 14: Blood Pressure 168/75 H 07/23/24 18:17 Pulse Oximetry 98 07/23/24 18:17 Medical Decision Making [facility] Narrative Medical decision making narrative: 83-year-old female presents emergency department for evaluation for worsening kidney function. Patient is currently afebrile with no leukocytosis and a hemoglobin of 9.8, hemoglobin is not far from her baseline. INR is 1.5. Patient's sodium is similar to her baseline. Patient does have an elevated creatinine of 4.77 which was 1.6 at baseline. Patient's BUN is 52 which is typically 25-35 at baseline. Patient's pro is also elevated at 14,000 thousand, patient does have some lower extremity edema. Suspect possible acute kidney injury secondary to the Augmentin. Patient will be admitted for further workup Patient's postvoid residual bladder scan was 8 mL Differential Diagnosis Differential Diagnosis: Dehydration, acute on chronic kidney injury, adverse medication reaction, urinary retention, UTI Vital Signs Vital Signs: Vital Signs Temperature 97.1 F L 07/23/24 14:25 Pulse Rate 85 07/23/24 14:25 Respiratory Rate 16 07/23/24 14:25 Blood Pressure 167/62 H 07/23/24 14:25 Pulse Oximetry 99 07/23/24 14:25 Temperature 97.1 F L 07/23/24 14:25 Pulse Rate 85 07/23/24 14:25 Respiratory Rate 16 07/23/24 14:25 Blood Pressure 168/75 H 07/23/24 18:17 Pulse Oximetry 98 07/23/24 18:17 Lab Data Lab results reviewed: Yes I reviewed the patient's lab results. 07/23/24 16:52 07/23/24 16:52 Labs: Lab Results 07/23/24 07/23/24 Range/Units 16:52 18:12 WBC 8.0 (4.5-10.0) K/mm3 RBC 3.25 L (4.2-5.4) M/mm3 Hgb 9.8 L (12.0-15.0) g/dL Hct 30.3 L (37.0-47.0) % MCV 93.2 (80-100) fl MCH 30.2 (26-34) pg MCHC 32.3 (32-36) g/dl RDW 12.9 (11.5-14.5) % Plt Count 391 H (150-375) k/mm3 MPV 9.0 (7.4-10.4) fl Immature Gran % (Auto) 1.6 H (0-0.5) % Neut % (Auto) 74.6 H (45.5-73.1) % Lymph % (Auto) 14.5 L (18.3-44.2) % [place] % (Auto) 7.6 (2.6-8.5) % Eos % (Auto) 1.2 (0-4.4) % Baso % (Auto) 0.5 (0.2-1.2) % Lymph # (Auto) 1.16 (0.9-3.2) K/mm3 [place] # (Auto) 0.6 (0.1-0.6) K/mm3 Eos # (Auto) 0.1 (0-0.3) K/mm3 Baso # (Auto) 0.0 (0.0-0.1) K/mm3 Abs Immat Gran (auto) 0.13 H (0.00-0.031) K/mm3 Absolute Neuts (auto) 6.0 (1.3-6.7) K/mm3 Absolute Nucleated RBC 0.000 (0.0-0.012) K/mm3 Nucleated RBC % 0.0 (0.0-0.2) % PT 18.6 H (11.1-14.7) Seconds INR 1.5 APTT 38.4 H (22.3-36.8) Seconds Sodium 134 L (137-145) mmol/L Potassium 4.2 (3.4-5.0) mmol/L Chloride 101 (98-107) mmol/L Carbon Dioxide 20 L (22-30) mmol/L Anion Gap 13 H (4-12) mmol/L BUN 52 H (7-17) mg/dL Creatinine 4.77 H (0.7-1.0) mg/dL Estim Creat Clear Calc 9 ml/min Estimated GFR 9 L (59 - ) Glucose 114 H (65-110) mg/dL Lactic Acid 0.8 (0.7-2.0) mmol/L Calcium 8.7 (8.4-10.2) mg/dL Total Bilirubin 0.9 (0.2-1.3) mg/dL AST 37 H (14-36) U/L ALT 47 H (6-35) U/L Alkaline Phosphatase 115 (38-126) U/L NT-Pro-B Natriuret Pep [id number] H (19.9-100) pg/mL Total Protein 7.0 (6.3-8.2) g/dL Albumin 3.7 (3.5-5.1) g/dL Urine Color Yellow (Yellow) Urine Appearance Clear (Clear) Urine pH 5.0 (5.0-9.0) Ur Specific [place] 1.017 (1.001-1.035) Urine Protein 2+ H (Negative) mg/dL Urine Glucose (UA) Negative (Negative) mg/dL Urine Ketones Negative (Negative) mg/dL Ur Blood (Man) Negative (Negative) Urine Nitrate Negative (Negative) Urine Bilirubin Negative (Negative) Urine Urobilinogen 0.2 (<2.0) mg/dL Leukocyte Esterase Rfl Negative (Negative) MAIDA/UL Urine RBC 0-2 (0-2) /hpf Urine WBC 0-5 (0-3) /hpf Ur Squamous Epith Cells Few (Few) /hpf Urine Bacteria None seen /hpf Urine Casts 3-5 Imaging Data Radiologist's impression: Impressions Chest X-Ray 07/23/24 18:16 IMPRESSION: Trace right pleural effusion. Discharge Plan Discharge Clinical Impression: Acute kidney injury superimposed on chronic kidney disease Patient Disposition: Still a Patient Condition: Stable
[2024-07-23] MEDS: SODIUM CHLORIDE 0.9% IV 500 ML 999 ML IV CONT (18:10)
[2024-07-23 18:38] LABS: Add Urine Microscopic? YES; Appearance Urine Clear (Clear); Bacteria Urine None Seen /hpf; Bilirubin Urine Negative (Negative); Blood Urine Negative (Negative); Color Urine Yellow (Yellow); Glucose Urine UA Negative (Negative); Ketones Urine Negative (Negative); Leukocyte Esterase Ur Negative LEU/UL (Negative); Nitrate Urine Negative (Negative); Protein Urine 2+ mg/dL (Negative); RBC Urine 0-2 /hpf (0-2); Specific Grav Ur 1.017 (1.001-1.035); Squamous Epithelial Cell Urine Few /hpf (Few); Urobilinogen Urine 0.2 mg/dL (<2.0); WBC Urine 0-5 /hpf (0-3)
--- NOTE | 2024-07-23 21:04 | ADMGEN ---
This patient, Gill Kowalski, was admitted to [facility] Surg Room 311-01. Patient/family oriented to hospital policies and general routines including ID bracelet, bed and alarms, visiting hours, pain management, procedures, bathroom and other care routines, personal items, smoking policy, room service/diet, and visiting hours. Information on how to activate the Rapid Response Team has been discussed. Patient/Family are encouraged to report perceived risks to care and to ask questions if they do not understand what they are told or what they should do.
--- NOTE | 2024-07-23 22:42 | PM.IMHP ---
H&P: HPI History of Present Illness Date/Time: 07/23/24 22:42 Chief Complaint: Abnormal kidney numbers Narrative: 83-year-old female with a past medical history of chronic kidney disease stage IV, coronary artery disease, essential hypertension, pulmonary embolism, type 2 diabetes mellitus now managed with insulin and recent hospitalization for acute cholecystitis 07/15/2024 through 07/21/2024 who presented to the ER after repeat labs demonstrated acute on chronic kidney injury. During her recent hospitalization the patient had contrasted CT of the chest abdomen pelvis, cardiac catheterization and was treated with antibiotic therapy and discharged home on Augmentin 500 mg q.8 hours with a cholecystectomy drain in place. She follow-up with her primary care physician for routine follow-up labs was found to have worsening creatinine and was directed to come to the ER. She reports that since she has went home she has continued to have a poor appetite but otherwise is not feeling acutely ill. She has not been eating or drinking much. She denies any nausea or vomiting. She has felt a little bit weaker than usual and instead of only ambulating with a cane when she is out how she has been using a wheeled walker. She denies any fevers or chills. She has not noticed any increased drainage from her cholecystectomy drain. Her amount of output has been stable. She denies any chest pain. Due to her weakness she does report that she needs to catch her when before she stands up in ambulates. She has not noticed any lower extremity swelling or orthopnea. She denies any unusual abdominal discomfort. She denies changes in urinary frequency or dysuria. Her urine may be a little bit darker than usual. She has chronic kidney disease stage 4 but does not follow with a rn resource nurse. She states her primary care physician monitors her kidney function. She has not been taking any ibuprofen. She does take arthritis strength Tylenol. She has continued to take her same doses of home meds. She has been feeling extremely thirsty. She was discharged on Augmentin 500 mg q.8 hours. Review of Systems Review of Systems: 12 systems were reviewed with pertinent positives and negatives per HPI. Except as documented in the HPI, all other systems were reviewed and are negative. [facility] Past Medical History Medical History (Updated 07/24/24 @ 10:02 by Mandy Pool DO) Mild aortic stenosis Diabetic nephropathy Low vitamin D level CKD (chronic kidney disease) stage 4, GFR 15-29 ml/min Paroxysmal atrial fibrillation Anticoagulant long-term use Essential hypertension CHF (congestive heart failure) Echocardiogram 07/15/2024 demonstrated EF 50-55% mildly increased left ventricular wall thickness diastolic dysfunction grade 1 moderate left atrial enlargement moderate mitral valve regurgitation Congenital hearing loss of both ears Heart disease Glaucoma Pulmonary embolism Distal radius fracture Diabetes 1.5, managed as type 2 Depression Arthritis Myocardial infarction (lateral wall) Anxiety History of fracture of wrist Surgical History Surgical History (Updated 07/24/24 @ 09:49 by Mandy Pool, DO) History of cardiac catheterization Most recent heart catheterization 07/19/2024 demonstrated multivessel coronary disease with moderate ostial RCA disease calcifications in the midportion of the RCA with 80% stenosis lesion likely culprit for the patient's non STEMI RCA is not revascularized with a bypass graft given calcified vessel an ostial disease PCI of mid see RCA may be more technically challenging and therefore was not pursued. Will plan for outpatient PCI after acute cholecystitis resolved. 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 H/O heart bypass surgery H/O sinus surgery H/O shoulder surgery H/O cataract extraction History of bunionectomy Family History Family History Other Diabetes mellitus Family history of arthritis Family history of malignant neoplasm Social History Social History Social History: Smoking status: Never smoker Second hand tobacco smoke exposure: No Alcohol intake: never Substance use: never Substance use type: does not use Do You Feel Safe in your Home?: Yes Lack of Transportation: No Lack of Food: Never True Current Housing: I Have Housing Concerned About Future Housing: No Difficulty Paying Gas/Electric Bills: No Difficulty Paying for Meds: No Currently Unemployed: No Education: High School Diploma/GED Difficulty w/ Childcare or Family Care: No Living arrangements: alone Occupation/Education: occupation 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 Gender identity (if verbalized by the patient): Female Sexual Orientation (if Verbalized by the Patient): Straight or Heterosexual Meds Home Medications and Allergies Home Medications ?Medication ?Instructions ?Recorded ?Confirmed ?Type blood sugar diagnostic (Accu-Chek #100 ea 05/20/19 07/23/24 Rx Ingrid Plus test strips) aspirin 81 mg tablet,delayed 81 mg PO DAILY 06/05/19 07/23/24 History release loratadine 10 mg tablet 10 mg PO DAILY 09/11/19 07/23/24 History warfarin 2 mg tablet 6 mg PO DAILY 09/11/19 07/23/24 History ferrous sulfate 325 mg (65 mg 325 mg PO DAILY #90 tabs 10/24/22 07/23/24 Rx iron) tablet (Iron (ferrous sulfate)) citalopram 10 mg tablet 10 mg PO DAILY #90 tabs 03/06/23 07/23/24 Rx metoprolol tartrate 25 mg tablet 25 mg PO BID 07/25/23 07/24/24 History latanoprost 0.005 % eye drops 1 drp EACH EYE HS 08/09/23 07/23/24 History metformin 500 mg tablet 500 mg PO BID 08/09/23 07/23/24 History spironolactone 25 mg tablet 25 mg PO DAILY #90 tabs 10/02/23 07/23/24 Rx albuterol sulfate 90 mcg/actuation 2 puff inhalation QID PRN 04/15/24 07/23/24 Rx aerosol inhaler shortness of breath or wheezing #6.7 grams ergocalciferol (vitamin D2) 1,250 1,250 mcg PO WEEKLY #14 caps 06/14/24 07/23/24 Rx mcg (50,000 unit) capsule (Vitamin D2) amlodipine 10 mg tablet 10 mg PO DAILY #90 tabs 07/01/24 07/23/24 Rx atorvastatin 80 mg tablet 80 mg PO QPM 07/15/24 07/23/24 History cetirizine 10 mg tablet 10 mg PO DAILY 07/15/24 07/23/24 History hydralazine 50 mg tablet 25 mg PO TID 07/15/24 07/23/24 History lansoprazole 15 mg capsule,delayed 15 mg PO DAILY 07/15/24 07/23/24 History release amoxicillin 500 mg-potassium 1 tablet PO Q8HR #21 tabs 07/21/24 07/23/24 Rx clavulanate 125 mg tablet (Augmentin) acetaminophen 650 mg 650 mg PO Q8H PRN pain 07/23/24 07/23/24 History tablet,extended release (Arthritis Pain Relief (acetaminophen) ER) furosemide 20 mg tablet See Rx Instructions PO .COMPLEX 07/23/24 07/23/24 History hydralazine 25 mg tablet 25 mg PO TID 07/23/24 07/23/24 History Allergies Allergy/AdvReac Type Severity Reaction Status Date / Time No Known Allergies Allergy Verified 07/23/24 08:33 Vital Signs Vital Signs - 24 hr 07/23/24 14:25 07/23/24 18:14 07/23/24 18:15 Temperature 97.1 F L Pulse Rate 85 Respiratory Rate 16 Blood Pressure 167/62 H 173/74 H Pulse Oximetry 99 99 98 07/23/24 18:16 07/23/24 18:17 Temperature Pulse Rate Respiratory Rate Blood Pressure 168/75 H Pulse Oximetry 98 98 H&P: Results Labs Labs: Laboratory Tests 07/23/24 16:52 07/23/24 16:52 07/23/24 07/23/24 16:52 18:12 WBC 8.0 RBC 3.25 L Hgb 9.8 L Hct 30.3 L MCV 93.2 MCH 30.2 MCHC 32.3 RDW 12.9 Plt Count 391 H MPV 9.0 Immature Gran % (Auto) 1.6 H Neut % (Auto) 74.6 H Lymph % (Auto) 14.5 L [place] % (Auto) 7.6 Eos % (Auto) 1.2 Baso % (Auto) 0.5 Lymph # (Auto) 1.16 [place] # (Auto) 0.6 Eos # (Auto) 0.1 Baso # (Auto) 0.0 Abs Immat Gran (auto) 0.13 H Absolute Neuts (auto) 6.0 Absolute Nucleated RBC 0.000 Nucleated RBC % 0.0 PT 18.6 H INR 1.5 APTT 38.4 H Sodium 134 L Potassium 4.2 Chloride 101 Carbon Dioxide 20 L Anion Gap 13 H BUN 52 H Creatinine 4.77 H Estim Creat Clear Calc 9 Estimated GFR 9 L Glucose 114 H Lactic Acid 0.8 Calcium 8.7 Total Bilirubin 0.9 AST 37 H ALT 47 H Alkaline Phosphatase 115 NT-Pro-B Natriuret Pep 06390 H Total Protein 7.0 Albumin 3.7 Urine Color Yellow Urine Appearance Clear Urine pH 5.0 Ur Specific [place] 1.017 Urine Protein 2+ H Urine Glucose (UA) Negative Urine Ketones Negative Ur Blood (Man) Negative Urine Nitrate Negative Urine Bilirubin Negative Urine Urobilinogen 0.2 Leukocyte Esterase Rfl Negative Urine RBC 0-2 Urine WBC 0-5 Ur Squamous Epith Cells Few Urine Bacteria None seen Urine Casts 3-5 Impressions Chest X-Ray 07/23/24 18:16 IMPRESSION: Trace right pleural effusion. Assessment and Plan Assessment and plan (1) Acute kidney injury superimposed on chronic kidney disease: Code(s): N17.9 - Acute kidney failure, unspecified; N18.9 - Chronic kidney disease, unspecified Status: Acute (2) Cholecystitis: Code(s): K81.9 - Cholecystitis, unspecified Status: Acute (3) Diabetes 1.5, managed as type 2: Code(s): E13.9 - Other specified diabetes mellitus without complications Status: Acute (4) Subtherapeutic international normalized ratio (INR): Code(s): R79.1 - Abnormal coagulation profile Status: Acute (5) GERD (gastroesophageal reflux disease): Qualifiers: Esophagitis presence: esophagitis presence not specified Qualified Code(s): K21.9 - Gastro-esophageal reflux disease without esophagitis Code(s): K21.9 - Gastro-esophageal reflux disease without esophagitis Status: Acute (6) NSTEMI (non-ST elevated myocardial infarction): Code(s): I21.4 - Non-ST elevation (NSTEMI) myocardial infarction Status: Acute (7) CHF (congestive heart failure): Qualifiers: Heart failure type: diastolic Heart failure chronicity: chronic Qualified Code(s): I50.32 - Chronic diastolic (congestive) heart failure Code(s): I50.9 - Heart failure, unspecified Status: Acute Plan Patient presents with acute renal failure on chronic kidney disease. The reason for the patient's acute component of renal failure is multifactorial due to recent contrast load loads that were necessary including for CT of the abdomen and pelvis to evaluate acute cholecystitis, contrast for recent cardiac catheterization due to non STEMI, dehydration due to decreased oral intake in the setting of continued use of Lasix and spironolactone as well as continued use of metformin. This is complicated by patient receiving augment at slightly than higher recommended dosing for her creatinine clearance. The patient received 500 mL bolus of saline in the ER. Will place the patient on maintenance IV fluid hydration with normal saline at 100 mL an hour. Nephrology has been consulted. Will monitor urine output closely and obtain renal ultrasound. Patient has been placed on a renal dialysis diet. Await further recommendations from Nephrology. Will avoid nephrotoxic medications. Will repeat L BMP and check magnesium and phos with a.m. labs. Patient has acute cholecystitis with bacteremia recently will change antibiotic coverage to Rocephin and Flagyl. Cholecystectomy drain remains in place. General surgery has been consulted.. Will repeat CBC in a.m.. Patient does have history of diabetes but is currently euglycemic. Will place the patient on low-dose sliding scale insulin with Accu-Cheks a.c. HS and hypoglycemia protocol as needed. Patient currently has a subtherapeutic INR. Will increase the patient's Coumadin to 8 mg daily and to will monitor daily INR. Will place patient on therapeutic Lovenox until INR is therapeutic. Will continue patient's home PPI therapy for her GERD Patient had recent non STEMI and had cardiac catheterization demonstrating area stenosis that will need eventual stent placement once she has recovered from acute cholecystitis and bacteremia. Patient is not currently having any chest pain or cardiac symptoms. Will continue to monitor. Quality VTE Prophylaxis VTE prophylaxis: pharmacologic ordered (Please see above) Hospitalist [facility] Advance Care Plan I have confirmed that the patient's Advanced Care Plan is present, code status is documented, or surrogate decision maker is listed in patient medical record.: Yes Medication Reconciliation I have utilized all available resources to obtain, update and review the patients current medications (includes all prescriptions, OTC, herbals, cannabis, and nutritional supplements).: Yes
[2024-07-23] MEDS: SODIUM CHLORIDE 0.9% IV 1,000 ML 100 ML IV CONT (23:53)
[2024-07-24 06:00] VITALS: BP 144/72; PULSE 73; RESP 18; TEMP 36.7; O2SAT 98
[2024-07-24] MEDS: hydrALAZINE HCL 25 MG TABLET PO ×3 (06:34→20:31)
[2024-07-24 06:52] LABS: Hematocrit 28.1 % (37.0-47.0); Hemoglobin 9.2 g/dL (12.0-15.0); Mean Corpuscular HGB Conc 32.7 g/dl (32-36); Mean Corpuscular Hemoglobin 30.2 pg (26-34); Mean Corpuscular Volume 92.1 fl (80-100); Mean Platelet Volume 9.3 fl (7.4-10.4); Platelet Count Result 428 k/mm3 (150-375); Red Blood Count 3.05 M/mm3 (4.2-5.4); Red Cell Distribution Width 13.1 % (11.5-14.5); White Blood Count 8.1 K/mm3 (4.5-10.0)
[2024-07-24 07:05] LABS: INR 1.5; Prothrombin Time 18.7 Seconds (11.1-14.7)
[2024-07-24 07:06] LABS: Anion Gap 11 mmol/L (4-12); Blood Urea Nitrogen 44 mg/dL (7-17); Calcium 8.5 mg/dL (8.4-10.2); Carbon Dioxide 19 mmol/L (22-30); Chloride 107 mmol/L (98-107); Estimated CRCL calculation 11 ml/min; Estimated Glomerular Filt Rate 11; Glucose 96 mg/dL (65-110); Phosphorus 4.7 mg/dL (2.5-4.5); Potassium 3.7 mmol/L (3.4-5.0); Sodium 137 mmol/L (137-145)
[2024-07-24] MEDS: ASPIRIN 81 MG ENTERIC TABLET PO (08:46)
[2024-07-24 08:47] VITALS: PULSE 74
[2024-07-24] MEDS: amLODIPine BESYLATE 10 MG TABLET PO (08:47)
[2024-07-24] MEDS: FERROUS SULFATE 325 MG TABLET DR PO (08:47)
[2024-07-24] MEDS: LORATADINE 10 MG TABLET PO (08:47)
[2024-07-24] MEDS: METOPROLOL TARTRATE 25 MG TABLET PO ×2 (08:47→20:31)
[2024-07-24] MEDS: PANTOPRAZOLE 40 MG TABLET PO (08:48)
[2024-07-24] MEDS: ACETAMINOPHEN 500 MG TABLET 1000 MG PO ×2 (08:53→20:31)
[2024-07-24] MEDS: CITALOPRAM HYDROBROMIDE 10 MG TABLET PO (08:53)
[2024-07-24 09:18] LABS: Creatine Kinase 39 U/L (30-135)
[2024-07-24 09:58] LABS: Creatinine Urine 68.6 mg/dL; Total Protein Urine Random 98 mg/dL; Ur Ttl Prot Creatinine Ratio 1.43 mg/mg (0-0.20)
[2024-07-24 10:03] LABS: Urea Random Urine 420 MG/DL
[2024-07-24 10:04] LABS: Sodium Urine Random 59 meq/L
--- NOTE | 2024-07-24 10:12 | P.CONGS_ITS ---
Assessment and Plan Assessment and plan (1) Cholecystostomy care: Code(s): Z43.4 - Encounter for attention to other artificial openings of digestive tract Status: Acute Assessment and Plan: S/p cholecystostomy tube placement on 07/17/24 and this appears to be functioning well. She has bee readmitted for acute renal failure. There does not appear to be any acute issues with her gallbladder. Continue current care and monitoring of her cholecystostomy tube. This will be in place for at least 2-3 weeks and we can follow-up with her as an outpatient after she is eventually discharged. Okay to transition back to oral antibiotics from our standpoint if IV route is not necessary for any other reason. Bile and blood cultures grew strep gallol ssp pasteuruanus from her previous hospitalization, and she was discharged on Augmentin, which her dose would need to be adjusted due to her GIO or choose an alternative agent. No surgical indication at this time. (2) Cholecystitis: Code(s): K81.9 - Cholecystitis, unspecified Status: Acute (3) Bacteremia: Code(s): R78.81 - Bacteremia Status: Acute Plan I have discussed the patient's case and plan of care with Dr. Mar. History of Present Illness Consult details Consult date: 07/24/24 Reason for consult: other (Cholecystostomy tube) Requesting physician: Edgard Segundo MD Narrative: This is an 83-year-old woman with multiple medical problems who was recently hospitalized from 07/15/2024 -07/21/2024 for acute cholecystitis, NSTEMI, bacteremia. She was treated with IV antibiotics and percutaneous cholecystostomy tube placement on 07/17/2024. We followed the patient until discharge and she was discharged on oral antibiotics, which she has been taking as prescribed. She denies any nausea, vomiting, or abdominal pain. She does admit to poor appetite over the past few days, but has been tolerating a diet. She denies any issues with her cholecystostomy tube and has been emptying this on her own at home. She reports bilious appearing output. Yesterday, she developed left foot pain and had difficulty with ambulating, therefore she went to her friend's house and was evaluated by her PCP. She had outpatient labs that showed worsening acute renal failure and was directed to the ED. BUN went up to the 50 from 36 and creatinine went up to 4.9 from 1.6. Labs in the ED additionally showed mild elevation in AST and ALT, which is trending down from her previous hospitalization, BNP 14,000, and a normal white blood cell count of 8000. She has been admitted for acute renal failure in our service consulted for the cholecystostomy tube. She is currently on IV cefepime and metronidazole. Review of Systems 2 Review of Systems: All systems reviewed & are unremarkable except as noted in HPI and below PMFSH Past Medical History Medical History (Updated 07/24/24 @ 10:50 by NISHANT Carrizales) Mild aortic stenosis Diabetic nephropathy Low vitamin D level CKD (chronic kidney disease) stage 4, GFR 15-29 ml/min Paroxysmal atrial fibrillation Anticoagulant long-term use Essential hypertension CHF (congestive heart failure) Echocardiogram 07/15/2024 demonstrated EF 50-55% mildly increased left ventricular wall thickness diastolic dysfunction grade 1 moderate left atrial enlargement moderate mitral valve regurgitation Congenital hearing loss of both ears Heart disease Glaucoma Pulmonary embolism Distal radius fracture Diabetes 1.5, managed as type 2 Depression Arthritis Myocardial infarction (lateral wall) Anxiety History of fracture of wrist Surgical History Surgical History History of cardiac catheterization Most recent heart catheterization 07/19/2024 demonstrated multivessel coronary disease with moderate ostial RCA disease calcifications in the midportion of the RCA with 80% stenosis lesion likely culprit for the patient's non STEMI RCA is not revascularized with a bypass graft given calcified vessel an ostial disease PCI of mid see RCA may be more technically challenging and therefore was not pursued. Will plan for outpatient PCI after acute cholecystitis resolved. 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 H/O heart bypass surgery H/O sinus surgery H/O shoulder surgery H/O cataract extraction History of bunionectomy Family History Family History Other Diabetes mellitus Family history of arthritis Family history of malignant neoplasm Social History Social History Social History: Smoking status: Never smoker Second hand tobacco smoke exposure: No Alcohol intake: never Substance use: never Substance use type: does not use Do You Feel Safe in your Home?: Yes Lack of Transportation: No Lack of Food: Never True Current Housing: I Have Housing Concerned About Future Housing: No Difficulty Paying Gas/Electric Bills: No Difficulty Paying for Meds: No Currently Unemployed: No Education: High School Diploma/GED Difficulty w/ Childcare or Family Care: No Living arrangements: alone Occupation/Education: occupation Additional occupation/education comments: [employer]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 Gender identity (if verbalized by the patient): Female Sexual Orientation (if Verbalized by the Patient): Straight or Heterosexual Meds Home Medications and Allergies Home Medications ?Medication ?Instructions ?Recorded ?Confirmed ?Type blood sugar diagnostic (Accu-Chek #100 ea 05/20/19 07/23/24 Rx Ingrid Plus test strips) aspirin 81 mg tablet,delayed 81 mg PO DAILY 06/05/19 07/23/24 History release loratadine 10 mg tablet 10 mg PO DAILY 09/11/19 07/23/24 History warfarin 2 mg tablet 6 mg PO DAILY 09/11/19 07/23/24 History ferrous sulfate 325 mg (65 mg 325 mg PO DAILY #90 tabs 10/24/22 07/23/24 Rx iron) tablet (Iron (ferrous sulfate)) citalopram 10 mg tablet 10 mg PO DAILY #90 tabs 03/06/23 07/23/24 Rx metoprolol tartrate 25 mg tablet 25 mg PO BID 07/25/23 07/24/24 History latanoprost 0.005 % eye drops 1 drp EACH EYE HS 08/09/23 07/23/24 History metformin 500 mg tablet 500 mg PO BID 08/09/23 07/23/24 History spironolactone 25 mg tablet 25 mg PO DAILY #90 tabs 10/02/23 07/23/24 Rx albuterol sulfate 90 mcg/actuation 2 puff inhalation QID PRN 04/15/24 07/23/24 Rx aerosol inhaler shortness of breath or wheezing #6.7 grams ergocalciferol (vitamin D2) 1,250 1,250 mcg PO WEEKLY #14 caps 06/14/24 07/23/24 Rx mcg (50,000 unit) capsule (Vitamin D2) amlodipine 10 mg tablet 10 mg PO DAILY #90 tabs 07/01/24 07/23/24 Rx atorvastatin 80 mg tablet 80 mg PO QPM 07/15/24 07/23/24 History cetirizine 10 mg tablet 10 mg PO DAILY 07/15/24 07/23/24 History hydralazine 50 mg tablet 25 mg PO TID 07/15/24 07/23/24 History lansoprazole 15 mg capsule,delayed 15 mg PO DAILY 07/15/24 07/23/24 History release amoxicillin 500 mg-potassium 1 tablet PO Q8HR #21 tabs 07/21/24 07/23/24 Rx clavulanate 125 mg tablet (Augmentin) acetaminophen 650 mg 650 mg PO Q8H PRN pain 07/23/24 07/23/24 History tablet,extended release (Arthritis Pain Relief (acetaminophen) ER) furosemide 20 mg tablet See Rx Instructions PO .COMPLEX 07/23/24 07/23/24 History hydralazine 25 mg tablet 25 mg PO TID 07/23/24 07/23/24 History Allergies Allergy/AdvReac Type Severity Reaction Status Date / Time No Known Allergies Allergy Verified 07/23/24 08:33 Vital Signs Vital Signs - 24 hr 07/23/24 14:25 07/23/24 18:14 07/23/24 18:15 Temperature 97.1 F L Pulse Rate 85 Respiratory Rate 16 Blood Pressure 167/62 H 173/74 H Pulse Oximetry 99 99 98 Oxygen Delivery 07/23/24 18:16 07/23/24 18:17 07/23/24 19:10 Temperature 97.6 F Pulse Rate 98 Respiratory Rate 18 Blood Pressure 168/75 H 168/63 H Pulse Oximetry 98 98 96 Oxygen Delivery 07/23/24 22:00 07/23/24 23:40 07/24/24 06:00 Temperature 98.2 F 98.1 F Pulse Rate 92 73 Respiratory Rate 20 18 Blood Pressure 171/64 H 144/72 H Pulse Oximetry 97 98 Oxygen Delivery Room Air 07/24/24 08:47 Temperature Pulse Rate 74 Respiratory Rate Blood Pressure Pulse Oximetry Oxygen Delivery Exam 2 Const: General: comfortable and no acute distress Nutritional Appearance: a verage body habitus Orientation/consciousness: patient oriented x3 HENMT: Head: normocephalic and atraumatic Ears: hearing grossly normal bilaterally Mouth: Yes moist mucous membranes Eyes: General: appearance normal, both eyes and all related structures P upils: Equal, round and reactive pupils present Neck: Neck: normal visual inspection and full ROM Resp: Effort & Inspection: no respiratory distress Auscultation: clear to auscultation bilaterally Cardio: Rate: regular rate Rhythm: regular rhythm Peripheral pulses: P eripheral pulses 2+ throughout GI: Inspection: non-distended GI Palp: Yes Soft to palpation, No Tenderness to palpation present (GI), No Guarding due to palpation present (GI), Yes No hepatosplenomegaly present and No Rebound tenderness present Auscultation: n ormal bowel sounds Other: Percutaneous cholecystostomy tube in the right upper quadrant with bilious appearing output Skin: General skin exam: normal color Neuro: General: moves all extremities and no focal motor deficits Speech: n ormal speech Motor exam (neuro): 5/5 motor strength present throughout Extrem: General: normal to inspection and no edema Psych: Mental Status: mental status grossly normal Attitude: cooperative Insight: Good insight present (Psych) Judgement: Good judgement present (Psych) Results Labs 07/24/24 06:25 07/24/24 06:25 Labs: Abnormal lab results 07/23/24 07/23/24 07/24/24 Range/Units 16:52 18:12 06:25 RBC 3.25 L 3.05 L (4.2-5.4) M/mm3 Hgb 9.8 L 9.2 L (12.0-15.0) g/dL Hct 30.3 L 28.1 L (37.0-47.0) % Plt Count 391 H 428 H (150-375) k/mm3 Immature Gran % (Auto) 1.6 H (0-0.5) % Neut % (Auto) 74.6 H (45.5-73.1) % Lymph % (Auto) 14.5 L (18.3-44.2) % Abs Immat Gran (auto) 0.13 H (0.00-0.031) K/mm3 PT 18.6 H 18.7 H (11.1-14.7) Seconds APTT 38.4 H (22.3-36.8) Seconds Sodium 134 L (137-145) mmol/L Carbon Dioxide 20 L 19 L (22-30) mmol/L Anion Gap 13 H (4-12) mmol/L BUN 52 H 44 H (7-17) mg/dL Creatinine 4.77 H 3.80 H (0.7-1.0) mg/dL Estimated GFR 9 L 11 L (59 - ) Glucose 114 H (65-110) mg/dL Phosphorus 4.7 H (2.5-4.5) mg/dL AST 37 H (14-36) U/L ALT 47 H (6-35) U/L NT-Pro-B Natriuret Pep 92186 H (19.9-100) pg/mL Urine Protein 2+ H (Negative) mg/dL Diabetes panel 07/23/24 07/24/24 Range/Units 16:52 06:25 Sodium 134 L 137 (137-145) mmol/L Potassium 4.2 3.7 (3.4-5.0) mmol/L Chloride 101 107 (98-107) mmol/L Carbon Dioxide 20 L 19 L (22-30) mmol/L BUN 52 H 44 H (7-17) mg/dL Creatinine 4.77 H 3.80 H (0.7-1.0) mg/dL Glucose 114 H 96 (65-110) mg/dL Calcium 8.7 8.5 (8.4-10.2) mg/dL AST 37 H (14-36) U/L ALT 47 H (6-35) U/L Alkaline Phosphatase 115 (38-126) U/L Total Protein 7.0 (6.3-8.2) g/dL Albumin 3.7 (3.5-5.1) g/dL Calcium panel 07/23/24 07/24/24 Range/Units 16:52 06:25 Calcium 8.7 8.5 (8.4-10.2) mg/dL Phosphorus 4.7 H (2.5-4.5) mg/dL Albumin 3.7 (3.5-5.1) g/dL Pituitary panel 07/23/24 07/24/24 Range/Units 16:52 06:25 Sodium 134 L 137 (137-145) mmol/L Potassium 4.2 3.7 (3.4-5.0) mmol/L Chloride 101 107 (98-107) mmol/L Carbon Dioxide 20 L 19 L (22-30) mmol/L BUN 52 H 44 H (7-17) mg/dL Creatinine 4.77 H 3.80 H (0.7-1.0) mg/dL Glucose 114 H 96 (65-110) mg/dL Calcium 8.7 8.5 (8.4-10.2) mg/dL Adrenal panel 07/23/24 07/24/24 Range/Units 16:52 06:25 Sodium 134 L 137 (137-145) mmol/L Potassium 4.2 3.7 (3.4-5.0) mmol/L Chloride 101 107 (98-107) mmol/L Carbon Dioxide 20 L 19 L (22-30) mmol/L BUN 52 H 44 H (7-17) mg/dL Creatinine 4.77 H 3.80 H (0.7-1.0) mg/dL Glucose 114 H 96 (65-110) mg/dL Calcium 8.7 8.5 (8.4-10.2) mg/dL Total Bilirubin 0.9 (0.2-1.3) mg/dL AST 37 H (14-36) U/L ALT 47 H (6-35) U/L Alkaline Phosphatase 115 (38-126) U/L Total Protein 7.0 (6.3-8.2) g/dL Albumin 3.7 (3.5-5.1) g/dL All other labs normal. Imaging Additional studies: ITS Impressions Chest X-Ray 07/23/24 18:16 IMPRESSION: Trace right pleural effusion.
[2024-07-24] MEDS: ENOXAPARIN 80 MG/0.8 ML SYRINGE 77 MG SUB-Q (11:06)
[2024-07-24] MEDS: SODIUM CHLORIDE 0.9% IV 1,000 ML 100 ML IV CONT ×2 (11:06→22:57)
[2024-07-24] MEDS: metroNIDAZOLE 500 MG/ISO 100ML 500 MG/100 ML BAG 100 MG IVPB (11:07)
[2024-07-24 11:13] LABS: Eosinophil Urine None Seen % (None Seen); Urine Eos QC 2nd Tech Confirmed
--- NOTE | 2024-07-24 12:00 | P.PNIM_ITS ---
Progress Note: A&P Assessment and Plan (1) Acute kidney injury superimposed on chronic kidney disease: Code(s): N17.9 - Acute kidney failure, unspecified; N18.9 - Chronic kidney disease, unspecified Status: Acute Assessment and Plan: Patient with acute cholecystitis with bacteremia recently while inpatient 07/15- 07/21/2024. The reason for the patient's acute component of renal failure is multifactorial due to recent contrast load loads that were necessary including for CT of the abdomen and pelvis to evaluate acute cholecystitis, contrast for recent cardiac catheterization due to non STEMI, dehydration due to decreased oral intake in the setting of continued use of Lasix and spironolactone as well as continued use of metformin. -Started on antibiotic coverage to Rocephin and Flagyl overnight while admitted, pending gen surg recs. Cholecystectomy drain remains in place and draining bilious appearing drainage. -Pending nephrology consult and recs -General surgery consulted with recs to D/C IV abx and switch her back to her Augmentin that she was D/C'd with but renal dosed -->Creat Cl yielded 13.93 ml/min based on pt sex, age, weight, and serum creatine for which recommendations of Augmentin are: CrCl 10 to <30 mL/minute: 250 to 500 mg every 12 hours -->Augmentin 500/125mg BID ordered today with the first dose starting tonight at 1700 - will re-evaluate dosage again tomorrow based on Creat cl -Trend CBC/CMP/mag/phos/renal function in a.m. -Maintenance IVF hydration with normal saline at 100 mL an hour -I/O 0500 & 1700 -Renal diet -Avoid renal toxic medications - holding metformin, Vit D, furosemide, spironolactone for now -Renal US 07/23/2024: IMPRESSION: 1. Symmetric moderate bilateral renal cortical atrophy. No hydronephrosis. (2) Cholecystitis: Code(s): K81.9 - Cholecystitis, unspecified Status: Acute Assessment and Plan: -Dx and tx while inpt last week, non surgical candidate so drain was placed - has been stable with bilious drainage, denies any pain -General surgery consulted with recs to D/C IV abx (rocephin & flagyl) and switch her back to her Augmentin that she was D/C'd with but renal dosed (500/125mg BID) d/t dx of bacteremia -F/u with gen surgery in 2-3 week outpt (3) Diabetes 1.5, managed as type 2: Code(s): E13.9 - Other specified diabetes mellitus without complications Status: Acute Assessment and Plan: -Patient does have history of diabetes but is currently euglycemic, last BS 128 at 1202 on 07/24/2024. -Low-dose sliding scale insulin with Accu-Cheks a.c. HS and hypoglycemia protocol as needed. -No insulin use at home, metformin 500mg BID but holding here due to decreased kidney function (4) Subtherapeutic international normalized ratio (INR): Code(s): R79.1 - Abnormal coagulation profile Status: Acute Assessment and Plan: -Patient currently has a subtherapeutic INR. Increase the patient's Coumadin to 8 mg daily (baseline 6mg) and to will monitor daily INR. Will place patient on therapeutic Lovenox until INR is therapeutic. -Trend PT/INR daily (5) GERD (gastroesophageal reflux disease): Qualifiers: Esophagitis presence: esophagitis presence not specified Qualified Code(s): K21.9 - Gastro-esophageal reflux disease without esophagitis Code(s): K21.9 - Gastro-esophageal reflux disease without esophagitis Status: Acute Assessment and Plan: -Patient's home PPI therapy for her GERD (Pantoprazole 40mg daily) (6) NSTEMI (non-ST elevated myocardial infarction): Code(s): I21.4 - Non-ST elevation (NSTEMI) myocardial infarction Status: Acute Assessment and Plan: -Patient had recent NSTEMI and had cardiac catheterization during last recent admission demonstrating stenosis that will need eventual stent placement once she has recovered from acute cholecystitis and bacteremia -Patient is not currently having any chest pain or cardiac symptoms. Will continue to monitor. -Reports that her outpatient cards appt was yesterday here at [facility], no new information, just reiterated need for eventual stent placement once she has recovered from acute cholecystitis and bacteremia (7) CHF (congestive heart failure): Qualifiers: Heart failure chronicity: chronic Heart failure type: diastolic Qualified Code(s): I50.32 - Chronic diastolic (congestive) heart failure Code(s): I50.9 - Heart failure, unspecified Status: Acute Assessment and Plan: -Asymptomatic today (SOB, CP, LE edema) -BNP [id number] per ED lab draw on 07/23, holding furosemide and spironolactone until kidney function resolves, will continue to monitor and pend renal recs for restarting meds (8) Ankle pain: Qualifiers: Chronicity: acute Laterality: left Qualified Code(s): M25.572 - Pain in left ankle and joints of left foot Code(s): M25.579 - Pain in unspecified ankle and joints of unspecified foot Status: Acute Assessment and Plan: -No pain upon my exam today -Worked up by PCP on 07/23 office visit: -->XR WDL, IMPRESSION: No acute osseous abnormality left foot. Polyarticular osteoarthritic changes. , Uric acid: 8.7, ESR: >140 -Pt reports that acetaminophen is controlling the pain here Plan -GIO w/CKD: Pending nephrology consult and recs -Cholecyst: Switching abx back to Augmentin, renally dosed at 500/125 BID starting at 1700 tonight. Pending creat cl labs in AM and will adjust dose if able. Continue to monitor drain. -CHF: Pending renal recs to re-start diuretics s/p BNP 14,100 on 07/23 -Recent NSTEMI: Continue to monitor for ACS s/p NSTEMI with cath last week -Subtherapeutic INR: Increased Coumadin to 8mg and add Lovenox 77mg daily until INR therapeutic, pending labs in AM Subjective Date/time seen: 07/24/24 0930 Interval history: Pt seen today, pt lying comfortably in bed. Pt denies no pain. Review of Systems Review of Systems: All systems reviewed & are unremarkable except as noted in HPI and below Exam Const: General: comfortable and no acute distress HENMT: Face/Nose/Sinus: Normal nares present Mouth: Yes moist mucous membranes Eyes: General: appearance normal, both eyes and all related structures Sclera: sclerae normal Neck: Neck: supple Resp: Effort & Inspection: normal respiratory effort Auscultation: clear to auscultation bilaterally Cardio: Rate: regular rate Rhythm: regular rhythm GI: Inspection: non-distended Auscultation: normal bowel sounds Other: Percutaneous cholecystostomy tube in the right upper quadrant with bilious appearing output Skin: General skin exam: normal color and no rashes or lesions noted Wounds: no wounds Neuro: Speech: normal speech Motor exam (neuro): 5/5 motor strength present throughout Sensory Exam: normal sensation Extrem: General: normal to inspection Psych: Mental Status: mental status grossly normal Affect: normal affect Objective Data Vital Signs Vital Signs: Vital Signs - 24 hr 07/23/24 14:25 07/23/24 18:14 07/23/24 18:15 Temperature 97.1 F L Pulse Rate 85 Respiratory Rate 16 Blood Pressure 167/62 H 173/74 H Pulse Oximetry 99 99 98 Oxygen Delivery 07/23/24 18:16 07/23/24 18:17 07/23/24 19:10 Temperature 97.6 F Pulse Rate 98 Respiratory Rate 18 Blood Pressure 168/75 H 168/63 H Pulse Oximetry 98 98 96 Oxygen Delivery 07/23/24 22:00 07/23/24 23:40 07/24/24 06:00 Temperature 98.2 F 98.1 F Pulse Rate 92 73 Respiratory Rate 20 18 Blood Pressure 171/64 H 144/72 H Pulse Oximetry 97 98 Oxygen Delivery Room Air 07/24/24 08:47 Temperature Pulse Rate 74 Respiratory Rate Blood Pressure Pulse Oximetry Oxygen Delivery Intake/Output Intake/Output: Intake & Output 07/21/24 07/22/24 07/23/24 07/24/24 23:59 23:59 23:59 23:59 Intake Total 500 1290 Output Total 180 Balance 500 1110 Meds/Results Medications: Active Medications Generic Name Dose Route Start Last Admin Trade Name Freq PRN Reason Stop Dose Admin Acetaminophen 1,000 mg 07/24/24 01:05 07/24/24 08:53 Acetaminophen 500 Mg Tablet PO 1,000 mg Q6H PRN Administration Mild Pain (1-3) or Fever Albuterol 2 puff 07/23/24 22:51 Albuterol Sulfate (*Sp) Aerosol 1 Puff INHALATION QID PRN shortness of breath or wheezing Amlodipine Besylate 10 mg 07/24/24 09:00 07/24/24 08:47 Amlodipine Besylate 10 Mg Tablet PO 10 mg DAILY SAMUEL Administration Aspirin 81 mg 07/24/24 09:00 07/24/24 08:46 Aspirin 81 Mg Enteric Tablet PO 81 mg DAILY SAMUEL Administration Atorvastatin Calcium 80 mg 07/24/24 18:00 Atorvastatin 40 Mg Tablet PO QPM SAMUEL Citalopram Hydrobromide 10 mg 07/24/24 09:00 07/24/24 08:53 Citalopram Hydrobromide 10 Mg Tablet PO 10 mg DAILY SAMUEL Administration Dextrose 12.5 gm 07/24/24 09:46 Dextrose 50% 25 Gm/50 Ml Syringe IV PUSH PRN PRN Hypoglycemia Protocol Enoxaparin Sodium 77 mg 07/24/24 10:10 07/24/24 11:06 Enoxaparin 80 Mg/0.8 Ml Syringe SUB-Q 77 mg Q24H SAMUEL Administration Ferrous Sulfate 325 mg 07/24/24 09:00 07/24/24 08:47 Ferrous Sulfate [address] PO 325 mg DAILY SAMUEL Administration Glucagon 1 mg 07/24/24 09:46 Glucagon For Inj 1 Mg Vial IM PRN PRN Hypoglycemia Protocol Glucose 15 gm 07/24/24 09:46 Glucose Oral Gel 15 Gm Of Glucse In 37.5 Gm Tube PO PRN PRN Hypoglycemia Protocol Hydralazine HCl 25 mg 07/24/24 06:00 07/24/24 06:34 Hydralazine Hcl 25 Mg Tablet PO 25 mg Q8HR SAMUEL Administration Sodium Chloride 1,000 mls @ 100 mls/hr 07/23/24 22:50 07/24/24 11:06 Normal Saline Iv IV CONT 100 mls/hr .Q10H SAMUEL Administration Ceftriaxone Sodium 1 gm in 50 mls @ 100 mls/hr 07/24/24 09:00 07/24/24 11:36 Rocephin 1 Gm/Ns 50 Ml IVPB Infused Q24H SAMUEL Infusion Metronidazole 500 mg in 100 mls @ 100 mls/hr 07/24/24 09:45 07/24/24 11:07 Flagyl 500 Mg/Iso Soln 100 Ml IVPB 100 mls/hr Q8HR SAMUEL Administration Dextrose 1,000 mls @ 100 mls/hr 07/24/24 09:46 Dextrose 5% 1,000 Ml IVPB PRN PRN Hypoglycemia Protocol Insulin Aspart 2 - 5 units 07/24/24 12:00 Insulin Aspart (*Bkc) 100 Units/Ml SUB-Q TIDWM SAMUEL Protocol Latanoprost 1 drop 07/24/24 21:00 Latanoprost 0.005% Op Soln 2.5 Ml Btl EACH EYE HS ASMUEL Loratadine 10 mg 07/24/24 09:00 07/24/24 08:47 Loratadine 10 Mg Tablet PO 10 mg DAILY [facility] Administration Metoprolol Tartrate 25 mg 07/24/24 09:00 07/24/24 08:47 Metoprolol Tartrate 25 Mg Tablet PO 25 mg Q12HR [facility] Administration Pantoprazole Sodium 40 mg 07/24/24 09:00 07/24/24 08:48 Pantoprazole 40 Mg Tablet PO 40 mg QAM [facility] Administration Warfarin Sodium 8 mg 07/24/24 17:00 Warfarin (*Pbkc) 4 Mg Tablet PO DAILY@1700 [facility] Radiology Results: ITS Impressions Chest X-Ray 07/23/24 18:16 IMPRESSION: Trace right pleural effusion. Renal Ultrasound 07/24/24 11:03 IMPRESSION: 1. Symmetric moderate bilateral renal cortical atrophy. No hydronephrosis. Labs Labs: Laboratory Results - last 24 hr 07/23/24 07/23/24 07/24/24 16:52 18:12 06:25 WBC 8.0 8.1 RBC 3.25 L 3.05 L Hgb 9.8 L 9.2 L Hct 30.3 L 28.1 L MCV 93.2 92.1 MCH 30.2 30.2 MCHC 32.3 32.7 RDW 12.9 13.1 Plt Count 391 H 428 H MPV 9.0 9.3 Immature Gran % (Auto) 1.6 H Neut % (Auto) 74.6 H Lymph % (Auto) 14.5 L [place] % (Auto) 7.6 Eos % (Auto) 1.2 Baso % (Auto) 0.5 Lymph # (Auto) 1.16 [place]ran # (Auto) 0.6 Eos # (Auto) 0.1 Baso # (Auto) 0.0 Abs Immat Gran (auto) 0.13 H Absolute Neuts (auto) 6.0 Absolute Nucleated RBC 0.000 Nucleated RBC % 0.0 PT 18.6 H 18.7 H INR 1.5 1.5 APTT 38.4 H Sodium 134 L 137 Potassium 4.2 3.7 Chloride 101 107 Carbon Dioxide 20 L 19 L Anion Gap 13 H 11 BUN 52 H 44 H Creatinine 4.77 H 3.80 H Estim Creat Clear Calc 9 11 Estimated GFR 9 L 11 L Glucose 114 H 96 Lactic Acid 0.8 Calcium 8.7 8.5 Phosphorus 4.7 H Magnesium 2.0 Total Bilirubin 0.9 AST 37 H ALT 47 H Alkaline Phosphatase 115 Total Creatine Kinase NT-Pro-B Natriuret Pep 21347 H Total Protein 7.0 Albumin 3.7 Urine Color Yellow Urine Appearance Clear Urine pH 5.0 Ur Specific [place] 1.017 Urine Protein 2+ H Urine Glucose (UA) Negative Urine Ketones Negative Ur Blood (Man) Negative Urine Nitrate Negative Urine Bilirubin Negative Urine Urobilinogen 0.2 Leukocyte Esterase Rfl Negative Urine RBC 0-2 Urine WBC 0-5 Ur Squamous Epith Cells Few Urine Bacteria None seen Urine Casts 3-5 Urine Eosinophils U Random Total Protein Ur Random Sodium Ur Random Urea Urine Total Volume Urine Creatinine Protein/Creat Ratio 2 07/24/24 07/24/24 07/24/24 06:28 09:30 09:30 WBC RBC Hgb Hct MCV MCH MCHC RDW Plt Count MPV Immature Gran % (Auto) Neut % (Auto) Lymph % (Auto) [place] % (Auto) Eos % (Auto) Baso % (Auto) Lymph # (Auto) [place]ran # (Auto) Eos # (Auto) Baso # (Auto) Abs Immat Gran (auto) Absolute Neuts (auto) Absolute Nucleated RBC Nucleated RBC % PT INR APTT Sodium Potassium Chloride Carbon Dioxide Anion Gap BUN Creatinine Estim Creat Clear Calc Estimated GFR Glucose Lactic Acid Calcium Phosphorus Magnesium Total Bilirubin AST ALT Alkaline Phosphatase Total Creatine Kinase 39 NT-Pro-B Natriuret Pep Total Protein Albumin Urine Color Urine Appearance Urine pH Ur Specific [place] Urine Protein Urine Glucose (UA) Urine Ketones Ur Blood (Man) Urine Nitrate Urine Bilirubin Urine Urobilinogen Leukocyte Esterase Rfl Urine RBC Urine WBC Ur Squamous Epith Cells Urine Bacteria Urine Casts Urine Eosinophils U Random Total Protein 98 Cancelled Ur Random Sodium 59 Ur Random Urea 420 Urine Total Volume Cancelled Urine Creatinine 68.6 Protein/Creat Ratio 2 07/24/24 07/24/24 09:30 09:37 WBC RBC Hgb Hct MCV MCH MCHC RDW Plt Count MPV Immature Gran % (Auto) Neut % (Auto) Lymph % (Auto) [place] % (Auto) Eos % (Auto) Baso % (Auto) Lymph # (Auto) [place] # (Auto) Eos # (Auto) Baso # (Auto) Abs Immat Gran (auto) Absolute Neuts (auto) Absolute Nucleated RBC Nucleated RBC % PT INR APTT Sodium Potassium Chloride Carbon Dioxide Anion Gap BUN Creatinine Estim Creat Clear Calc Estimated GFR Glucose Lactic Acid Calcium Phosphorus Magnesium Total Bilirubin AST ALT Alkaline Phosphatase Total Creatine Kinase NT-Pro-B Natriuret Pep Total Protein Albumin Urine Color Urine Appearance Urine pH Ur Specific [place] Urine Protein Urine Glucose (UA) Urine Ketones Ur Blood (Man) Urine Nitrate Urine Bilirubin Urine Urobilinogen Leukocyte Esterase Rfl Urine RBC Urine WBC Ur Squamous Epith Cells Urine Bacteria Urine Casts Urine Eosinophils None seen U Random Total Protein Ur Random Sodium Ur Random Urea Urine Total Volume Urine Creatinine Cancelled Protein/Creat Ratio 2 1.43 H Quality VTE Prophylaxis VTE prophylaxis: pharmacologic ordered (Please see above)
[2024-07-24 12:05] LABS: Glucose Point of Care 128 mg/dl (65-105)
--- NOTE | 2024-07-24 13:20 | P.CONNP_ITS ---
Assessment and Plan Assessment and plan (1) Acute kidney injury: Code(s): N17.9 - Acute kidney failure, unspecified Status: Acute Assessment and Plan: * as noted by outpatient and admission labs (4.90mg/dl and 4.77mg/dl, respectively) * suspect multifacatorial etiology: * contrast exposure (CT on 07/15 and cardiac cath on 07/19) * poor oral intake * diuretic use (lasix + spironolactone) * metformin use * antibiotics (Augmentin?) * recent infection (cholecystitis + bacteremia) * other (?) * evaluation to date noted: * renal u/s consistent with CKD ( moderate bilateral renal cortical atrophy ) but no obstruction * urine electrolytes non-prerenal * urine eosinophils negative * CPK okay * moderate proteinuria * improvement noted with IVFs * follow trend of repeat labs and UOP (2) Stage 3b chronic kidney disease: Code(s): N18.32 - Chronic kidney disease, stage 3b Status: Acute Assessment and Plan: * renal function/creatinine has fluctuated to extremes in the last few years.... * seems to average out around 1.2 - 1.6mg/dl since 2021 * however, her creatinine has run higher (1.7) as well as lower (1.1) in the past * presumably due to hypertension, diabetes, vascular disease, and age-related change (3) Coronary artery disease: Code(s): I25.10 - Atherosclerotic heart disease of [place] coronary artery without angina pectoris Status: Chronic Assessment and Plan: * known history * recent NSTEMI on last hospitalization * s/p cardiac cath (on 07/19) [facility] findings noted: * plan was for outpatient PCI to the RCA * continue aggressive medical therapy (4) Cholecystitis: Code(s): K81.9 - Cholecystitis, unspecified Status: Acute Assessment and Plan: * as noted on last hospitalization * s/p cholecystostomy tube placement (on 07/17/24) * bile and blood cultures (from last hospitalization) grew strep gallol ssp pasteuruanus * on antibiotics * no further intervention at this time * General Surgery recommendations noted (5) Anemia: Code(s): D64.9 - Anemia, unspecified Status: Acute Assessment and Plan: * due to GIO, CKD, and recent hospitalization/acute illness * follow trend of H/H (6) HTN (hypertension): Qualifiers: Hypertension type: essential hypertension Qualified Code(s): I10 - Essential (primary) hypertension Code(s): I10 - Essential (primary) hypertension Status: Chronic Assessment and Plan: * reasonable control at this time * follow trend of hemodynamics (7) Paroxysmal atrial fibrillation: Code(s): I48.0 - Paroxysmal atrial fibrillation Status: Chronic Assessment and Plan: * rate control strategy * on anticoagulation (8) Diabetes: Code(s): E11.9 - Type 2 diabetes mellitus without complications Status: Chronic Assessment and Plan: * follow accu-cheks * glycemic control per hospitalist I will continue to follow the patient with you while she remains hospitalized and make further recommendations as deemed necessary. Thank you for allowing me to participate in the care of this patient. L History of Present Illness Reason for Consult Consult date: 07/24/24 Reason for consult: acute renal failure (on chronic kidney disease) Chief Complaint Chief complaint: GIO on CKD History of Present Illness Narrative: The patient is an 83-year-old female with a past medical history as outlined below who presented to [facility] Emergency room after outpatient labs demonstrated evidence of acute kidney injury/acute renal failure. The patient was recently hospitalized here at [facility] about a week ago for acute cholecystitis. Her hospitalization was complicated by a non ST elevation GA and bacteremia that required antibiotics along with cardiology consultation with subsequent cardiac catheterization. There was a plan to bring the patient back as an outpatient for further intervention with regard to her coronary artery disease as they wonder acute infection to be treated prior to any further intervention. She had a cholecystectomy tube placed for decompression of her gallbladder and was eventually transition to oral antibiotic therapy prior to discharge. Since her discharge from the hospital, she reports a poor appetite in association with poor oral intake. She gave no history of nausea or vomiting but does report she has been a bit weaker than usual since her acute hospitalization. She followed up with her primary care physician yesterday in the office for her post hospitalization visit. At that time, repeat labs were done which demonstrated significant decline in her renal function in comparison to baseline and with what her creatinine was on hospital discharge. She was subsequently directed to the emergency room for further assessment Workup and evaluation demonstrated the patient be hemodynamically stable and afebrile. Repeat labs were done which demonstrated no significant leukocytosis, hemoglobin of 9.8, a 9 are 1.5, and a chemistry panel still which confirmed her acute kidney injury/acute renal failure with a creatinine of 4.77 and a BUN of 52 but no other critical electrolyte abnormalities. Given her acute kidney injury as noted by her admission labs as well as her outpatient labs, she was initiated on IV fluids with discontinuation of her diuretics and oral antibiotics and she was subsequently admitted to the hospital for further evaluation and therapy. Since her admission to hospital, her renal function has improved with her creatinine down to 3.8 mg/dL. In spite of her acute kidney injury/acute renal failure, she does not appear to be in any acute distress other the fact that she just does not feel as good as she normally does but blames this on her recent hospitalization and the gallbladder infection. Renal consultation was requested due to her acute kidney injury/acute renal failure on top of her baseline chronic kidney disease. From review of records, the patient's creatinine has fluctuated to extremes in the last several years but seems to ?average out? around 1.2 - 1.7 mg/dL in the last couple of years. She does not follow with any energy systems engineer with regard to her baseline renal insufficiency/chronic kidney disease. The presumed etiology of her baseline renal function is thought to be secondary to hypertension, diabetes, vascular disease, and age-related change. There is a concern that the acute insult that she sustained to her kidneys may be related to her recent hospitalization verses the use of outpatient antibiotics, specifically, Augmentin. As already mentioned, with IV fluid resuscitation, her kidney function has improved and the patient reports that she does feel a bit better and continues to make urine as well. Currently, at the time my evaluation, she appears to be in no acute distress. Review of Systems 2 Review of Systems: As per HPI. [facility] Past Medical History Medical History (Updated 07/24/24 @ 16:28 by Citlali Perez MD) Paroxysmal atrial fibrillation Diabetic nephropathy CKD (chronic kidney disease) stage 4, GFR 15-29 ml/min Essential hypertension Congenital hearing loss of both ears Mild aortic stenosis CHF (congestive heart failure) Echocardiogram 07/15/2024 demonstrated EF 50-55% mildly increased left ventricular wall thickness diastolic dysfunction grade 1 moderate left atrial enlargement moderate mitral valve regurgitation Anticoagulant long-term use Low vitamin D level Heart disease Glaucoma Pulmonary embolism Distal radius fracture Diabetes 1.5, managed as type 2 Depression Arthritis Myocardial infarction (lateral wall) Anxiety History of fracture of wrist Surgical History Surgical History History of cardiac catheterization Most recent heart catheterization 07/19/2024 demonstrated multivessel coronary disease with moderate ostial RCA disease calcifications in the midportion of the RCA with 80% stenosis lesion likely culprit for the patient's non STEMI RCA is not revascularized with a bypass graft given calcified vessel an ostial disease PCI of mid see RCA may be more technically challenging and therefore was not pursued. Will plan for outpatient PCI after acute cholecystitis resolved. 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 H/O heart bypass surgery H/O sinus surgery H/O shoulder surgery H/O cataract extraction History of bunionectomy Family History Family History Other Diabetes mellitus Family history of arthritis Family history of malignant neoplasm Social History Social History Social History: Smoking status: Never smoker Second hand tobacco smoke exposure: No Alcohol intake: never Substance use: never Substance use type: does not use Do You Feel Safe in your Home?: Yes Lack of Transportation: No Lack of Food: Never True Current Housing: I Have Housing Concerned About Future Housing: No Difficulty Paying Gas/Electric Bills: No Difficulty Paying for Meds: No Currently Unemployed: No Education: High School Diploma/GED Difficulty w/ Childcare or Family Care: No Living arrangements: alone Occupation/Education: occupation Additional occupation/education comments: [employer]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 Gender identity (if verbalized by the patient): Female Sexual Orientation (if Verbalized by the Patient): Straight or Heterosexual Meds Home Medications and Allergies Home Medications ?Medication ?Instructions ?Recorded ?Confirmed ?Type blood sugar diagnostic (Accu-Chek #100 ea 05/20/19 07/23/24 Rx Ingrid Plus test strips) aspirin 81 mg tablet,delayed 81 mg PO DAILY 06/05/19 07/23/24 History release loratadine 10 mg tablet 10 mg PO DAILY 09/11/19 07/23/24 History warfarin 2 mg tablet 6 mg PO DAILY 09/11/19 07/23/24 History ferrous sulfate 325 mg (65 mg 325 mg PO DAILY #90 tabs 10/24/22 07/23/24 Rx iron) tablet (Iron (ferrous sulfate)) citalopram 10 mg tablet 10 mg PO DAILY #90 tabs 03/06/23 07/23/24 Rx metoprolol tartrate 25 mg tablet 25 mg PO BID 07/25/23 07/24/24 History latanoprost 0.005 % eye drops 1 drp EACH EYE HS 08/09/23 07/23/24 History metformin 500 mg tablet 500 mg PO BID 08/09/23 07/23/24 History spironolactone 25 mg tablet 25 mg PO DAILY #90 tabs 10/02/23 07/23/24 Rx albuterol sulfate 90 mcg/actuation 2 puff inhalation QID PRN 04/15/24 07/23/24 Rx aerosol inhaler shortness of breath or wheezing #6.7 grams ergocalciferol (vitamin D2) 1,250 1,250 mcg PO WEEKLY #14 caps 06/14/24 07/23/24 Rx mcg (50,000 unit) capsule (Vitamin D2) amlodipine 10 mg tablet 10 mg PO DAILY #90 tabs 07/01/24 07/23/24 Rx atorvastatin 80 mg tablet 80 mg PO QPM 07/15/24 07/23/24 History cetirizine 10 mg tablet 10 mg PO DAILY 07/15/24 07/23/24 History hydralazine 50 mg tablet 25 mg PO TID 07/15/24 07/23/24 History lansoprazole 15 mg capsule,delayed 15 mg PO DAILY 07/15/24 07/23/24 History release amoxicillin 500 mg-potassium 1 tablet PO Q8HR #21 tabs 07/21/24 07/23/24 Rx clavulanate 125 mg tablet (Augmentin) acetaminophen 650 mg 650 mg PO Q8H PRN pain 07/23/24 07/23/24 History tablet,extended release (Arthritis Pain Relief (acetaminophen) ER) furosemide 20 mg tablet See Rx Instructions PO .COMPLEX 07/23/24 07/23/24 History hydralazine 25 mg tablet 25 mg PO TID 07/23/24 07/23/24 History Allergies Allergy/AdvReac Type Severity Reaction Status Date / Time No Known Allergies Allergy Verified 07/23/24 08:33 Vital Signs Vital Signs Temp Pulse Resp BP Pulse Ox O2 Del Method 07/24/24 13:00 97.1 F L 84 16 103/68 99 07/24/24 08:47 74 07/24/24 06:00 98.1 F 73 18 144/72 H 98 07/23/24 23:40 Room Air 07/23/24 22:00 98.2 F 92 20 171/64 H 97 07/23/24 19:10 97.6 F 98 18 168/63 H 96 07/23/24 18:17 168/75 H 98 07/23/24 18:16 98 07/23/24 18:15 173/74 H 98 07/23/24 18:14 99 Exam 2 Narrative: GENERAL APPEARANCE: elderly but well developed well nourished female in no acute distress HEENT: normocephalic, atraumatic, normal conjunctiva and sclera, nares patient NECK: no lymphadenopathy, thyromegaly, or JVD MOUTH: normal lips, teeth, and gums CARDIOVASCULAR: RRR, normal S1 and S2, no rub RESPIRATORY: clear to auscultation bilaterally ABDOMEN: soft, nontender, nondistended, positive bowel sounds present; + cholecystostomy tube in the right upper quadrant noted EXTREMITIES: no evidence of cyanosis, clubbing, or edema NEUROLOGICAL: alert and oriented x 3; CN II - XII intact bilaterally; no focal deficits noted Results Lab Results 07/24/24 06:25 07/24/24 06:25 Lab results: Most recent lab results Calcium 8.5 mg/dL (8.4-10.2) 07/24/24 06:25 Phosphorus 4.7 mg/dL (2.5-4.5) H 07/24/24 06:25 Magnesium 2.0 mg/dL (1.6-2.3) 07/24/24 06:25 Urine Creatinine 68.6 mg/dL 07/24/24 09:30 Urine Creatinine Cancelled 07/24/24 09:30
[2024-07-24] MEDS: FAMOTIDINE 20 MG TABLET PO (13:28)
[2024-07-24 14:00] VITALS: BP 103/68; PULSE 84; RESP 16; TEMP 36.2; O2SAT 99
[2024-07-24 16:25] LABS: Glucose Point of Care 142 mg/dl (65-105)
[2024-07-24] MEDS: AMOXICILLIN/CLAVULANATE K 500-125 MG TAB 1 TABLET PO (17:37)
[2024-07-24] MEDS: ATORVASTATIN 40 MG TABLET 80 MG PO (17:37)
[2024-07-24] MEDS: WARFARIN (*PBKC) 4 MG TABLET 8 MG PO (17:37)
[2024-07-24 20:31] VITALS: PULSE 70
[2024-07-24] MEDS: LATANOPROST 0.005% OP SOLN 2.5 ML BTL 1 DROP EACH EYE (20:31)
[2024-07-24 20:55] LABS: Glucose Point of Care 168 mg/dl (65-105)
[2024-07-24 22:00] VITALS: BP 154/62; PULSE 61; RESP 18; TEMP 36.6; O2SAT 97
[2024-07-24] MEDS: oxyCODONE HCL (*CRX) 2.5 MG TAB IR PO (23:42)
[2024-07-25] MEDS: ACETAMINOPHEN 500 MG TABLET 1000 MG PO ×2 (02:59→09:18)
[2024-07-25 06:00] VITALS: BP 149/61; PULSE 60; RESP 18; TEMP 36.8; O2SAT 98
[2024-07-25] MEDS: hydrALAZINE HCL 25 MG TABLET PO ×2 (06:07→13:28)
[2024-07-25 06:42] LABS: Basophils Absolute Auto 0.1 K/mm3 (0.0-0.1); Basophils Percent Auto 0.6 % (0.2-1.2); Eosinophils Absolute Auto 0.2 K/mm3 (0-0.3); Eosinophils Percent Auto 2.4 % (0-4.4); Hematocrit 26.3 % (37.0-47.0); Hemoglobin 8.2 g/dL (12.0-15.0); Immature Granulocyte Absolute 0.08 K/mm3 (0.00-0.031); Lymphocytes Absolute Auto 1.69 K/mm3 (0.9-3.2); Lymphocytes Percent Auto 20.4 % (18.3-44.2); Mean Corpuscular HGB Conc 31.2 g/dl (32-36); Mean Corpuscular Hemoglobin 30.1 pg (26-34); Mean Corpuscular Volume 96.7 fl (80-100); Mean Platelet Volume 9.5 fl (7.4-10.4); Monocytes Absolute Auto 0.6 K/mm3 (0.1-0.6); Monocytes Percent Auto 7.4 % (2.6-8.5); Neutrophils Absolute Auto 5.7 K/mm3 (1.3-6.7); Neutrophils Percent Auto 68.2 % (45.5-73.1); Platelet Count Result 399 k/mm3 (150-375); Red Blood Count 2.72 M/mm3 (4.2-5.4); Red Cell Distribution Width 13.2 % (11.5-14.5); White Blood Count 8.3 K/mm3 (4.5-10.0)
[2024-07-25 06:51] LABS: INR 1.7; Prothrombin Time 20.2 Seconds (11.1-14.7)
[2024-07-25 07:02] LABS: NT Pro B Type Natriuretic Pept 6130 pg/mL (19.9-100)
[2024-07-25 07:12] LABS: Alanine Aminotransferase 33 U/L (6-35); Albumin Level 3.2 g/dL (3.5-5.1); Alkaline Phosphatase 95 U/L (38-126); Anion Gap 9 mmol/L (4-12); Aspartate Amino Transferase 24 U/L (14-36); Bilirubin,Total 0.3 mg/dL (0.2-1.3); Blood Urea Nitrogen 30 mg/dL (7-17); Calcium 8.3 mg/dL (8.4-10.2); Carbon Dioxide 18 mmol/L (22-30); Chloride 111 mmol/L (98-107); Estimated CRCL calculation 17 ml/min; Estimated Glomerular Filt Rate 20; Glucose 100 mg/dL (65-110); Magnesium 1.8 mg/dL (1.6-2.3); Phosphorus 3.8 mg/dL (2.5-4.5); Potassium 3.9 mmol/L (3.4-5.0); Sodium 138 mmol/L (137-145)
[2024-07-25 07:40] LABS: Glucose Point of Care 105 mg/dl (65-105)
[2024-07-25 08:00] VITALS: PULSE 62; O2SAT 96
[2024-07-25] MEDS: SODIUM CHLORIDE 0.9% IV 1,000 ML 100 ML IV CONT (09:17)
[2024-07-25 09:22] VITALS: PULSE 62
[2024-07-25] MEDS: METOPROLOL TARTRATE 25 MG TABLET PO (09:22)
[2024-07-25] MEDS: LORATADINE 10 MG TABLET PO (09:22)
[2024-07-25] MEDS: amLODIPine BESYLATE 10 MG TABLET PO (09:22)
[2024-07-25] MEDS: CITALOPRAM HYDROBROMIDE 10 MG TABLET PO (09:23)
[2024-07-25] MEDS: FERROUS SULFATE 325 MG TABLET DR PO (09:23)
[2024-07-25] MEDS: AMOXICILLIN/CLAVULANATE K 500-125 MG TAB 1 TABLET PO ×2 (09:23→16:00)
[2024-07-25] MEDS: ENOXAPARIN 80 MG/0.8 ML SYRINGE 77 MG SUB-Q (09:23)
[2024-07-25] MEDS: PANTOPRAZOLE 40 MG TABLET PO (09:23)
[2024-07-25] MEDS: ASPIRIN 81 MG ENTERIC TABLET PO (09:23)
[2024-07-25] MEDS: predniSONE 20 MG TABLET 40 MG PO (11:05)
[2024-07-25 11:38] LABS: Glucose Point of Care 151 mg/dl (65-105)
--- NOTE | 2024-07-25 13:06 | P.PNNP_ITS ---
Progress Note: A&P Assessment and Plan (1) Acute kidney injury: Code(s): N17.9 - Acute kidney failure, unspecified Status: Acute Assessment and Plan: * ongoing improvement noted * as noted by outpatient and admission labs (4.90mg/dl and 4.77mg/dl, respectively) * suspect multifactorial etiology: * contrast exposure (CT on 07/15 and cardiac cath on 07/19) * poor oral intake * diuretic use (lasix + spironolactone) * metformin use * antibiotics (Augmentin?) * recent infection (cholecystitis + bacteremia) * other (?) * evaluation to date noted: * renal u/s consistent with CKD ( moderate bilateral renal cortical atrophy ) but no obstruction * urine electrolytes non-prerenal * urine eosinophils negative * CPK okay * moderate proteinuria * improvement noted with IVFs * follow trend of repeat labs and UOP (2) Stage 3b chronic kidney disease: Code(s): N18.32 - Chronic kidney disease, stage 3b Status: Acute Assessment and Plan: * renal function/creatinine has fluctuated to extremes in the last few years.... * seems to average out around 1.2 - 1.6mg/dl since 2021 * however, her creatinine has run higher (1.7) as well as lower (1.1) in the past * presumably due to hypertension, diabetes, vascular disease, and age-related change (3) Coronary artery disease: Code(s): I25.10 - Atherosclerotic heart disease of [place] coronary artery without angina pectoris Status: Chronic Assessment and Plan: * known history * recent NSTEMI on last hospitalization * s/p cardiac cath (on 07/19) [facility] findings noted: * plan was for outpatient PCI to the RCA * continue aggressive medical therapy (4) Cholecystitis: Code(s): K81.9 - Cholecystitis, unspecified Status: Acute Assessment and Plan: * as noted on last hospitalization * s/p cholecystostomy tube placement (on 07/17/24) * bile and blood cultures (from last hospitalization) grew strep gallol ssp pasteuruanus * on antibiotics * no further intervention at this time * General Surgery recommendations noted (5) Anemia: Code(s): D64.9 - Anemia, unspecified Status: Acute Assessment and Plan: * due to GIO, CKD, and recent hospitalization/acute illness * follow trend of H/H (6) HTN (hypertension): Qualifiers: Hypertension type: essential hypertension Qualified Code(s): I10 - Essential (primary) hypertension Code(s): I10 - Essential (primary) hypertension Status: Chronic Assessment and Plan: * reasonable control at this time * follow trend of hemodynamics (7) Paroxysmal atrial fibrillation: Code(s): I48.0 - Paroxysmal atrial fibrillation Status: Chronic Assessment and Plan: * rate control strategy * on anticoagulation (8) Diabetes: Code(s): E11.9 - Type 2 diabetes mellitus without complications Status: Chronic Assessment and Plan: * follow accu-cheks * glycemic control per hospitalist Not opposed to discharge from renal perspective if otherwise medically stable -- would hold diuretics for another few days after discharge and then resume. Will continue to follow. L Subjective Date/time seen: 07/25/24 13:06 Interval history: Follow-up for acute kidney injury/acute renal failure on chronic kidney disease. Feels quite well at the time of my visit; no apparent distress voiced when seen; renal function/creatinine seems to be improving as noted by trend of labs; no other issues/events overnight or earlier this morning; asking about if she can go home today. Exam 2 Narrative: General: elderly but WD/WN female in NAD Heart: normal S1 and S2; no rub Lungs: clear to auscultation Abdomen: soft, nontender, nondistended, positive bowel sounds Extremities: no cyanosis or clubbing; no edema Skin: warm and dry Objective Data Vital Signs Vital Signs: Vital Signs Temp Pulse Resp BP Pulse Ox O2 Del Method 07/25/24 13:04 96.0 F L 82 18 172/58 H 100 07/25/24 09:22 62 07/25/24 08:00 62 96 Room Air 07/25/24 06:00 98.2 F 60 18 149/61 H 98 07/24/24 22:00 98 F 61 18 154/62 H 97 07/24/24 20:31 70 Intake/Output Intake/Output: Intake & Output 07/22/24 07/23/24 07/24/24 07/25/24 23:59 23:59 23:59 23:59 Intake Total 500 2870 2100 Output Total 400 Balance 500 2470 2100 Meds/Results Medications: Active Medications Generic Name Dose Route Start Last Admin Trade Name Freq PRN Reason Stop Dose Admin Acetaminophen 1,000 mg 07/24/24 01:05 07/25/24 09:18 Acetaminophen 500 Mg Tablet PO 1,000 mg Q6H PRN Administration Mild Pain (1-3) or Fever Albuterol 2 puff 07/23/24 22:51 Albuterol Sulfate (*Sp) Aerosol 1 Puff INHALATION QID PRN shortness of breath or wheezing Amlodipine Besylate 10 mg 07/24/24 09:00 07/25/24 09:22 Amlodipine Besylate 10 Mg Tablet PO 10 mg DAILY SAMUEL Administration Amoxicillin/Clavulanate Potassium 1 tablet 07/24/24 17:00 07/25/24 09:23 Amoxicillin/Clavulanate K 500-125 Mg Tab PO 1 tablet BID SAMUEL Administration Aspirin 81 mg 07/24/24 09:00 07/25/24 09:23 Aspirin 81 Mg Enteric Tablet PO 81 mg DAILY SAMUEL Administration Atorvastatin Calcium 80 mg 07/24/24 18:00 07/24/24 17:37 Atorvastatin 40 Mg Tablet PO 80 mg QPM SAMUEL Administration Citalopram Hydrobromide 10 mg 07/24/24 09:00 07/25/24 09:23 Citalopram Hydrobromide 10 Mg Tablet PO 10 mg DAILY SAMUEL Administration Dextrose 12.5 gm 07/24/24 09:46 Dextrose 50% 25 Gm/50 Ml Syringe IV PUSH PRN PRN Hypoglycemia Protocol Enoxaparin Sodium 77 mg 07/24/24 10:10 07/25/24 09:23 Enoxaparin 80 Mg/0.8 Ml Syringe SUB-Q 77 mg Q24H SAMUEL Administration Famotidine 20 mg 07/24/24 13:06 07/24/24 13:28 Famotidine 20 Mg Tablet PO 20 mg Q12HR PRN Administration acid reflux Ferrous Sulfate 325 mg 07/24/24 09:00 07/25/24 09:23 Ferrous Sulfate [address] PO 325 mg DAILY SAMUEL Administration Glucagon 1 mg 07/24/24 09:46 Glucagon For Inj 1 Mg Vial IM PRN PRN Hypoglycemia Protocol Glucose 15 gm 07/24/24 09:46 Glucose Oral Gel 15 Gm Of Glucse In 37.5 Gm Tube PO PRN PRN Hypoglycemia Protocol Hydralazine HCl 25 mg 07/24/24 06:00 07/25/24 13:28 Hydralazine Hcl 25 Mg Tablet PO 25 mg Q8HR SAMUEL Administration Sodium Chloride 1,000 mls @ 100 mls/hr 07/23/24 22:50 07/25/24 13:30 Normal Saline Iv IV CONT 100 mls/hr .Q10H SAMUEL Infusion Dextrose 1,000 mls @ 100 mls/hr 07/24/24 09:46 Dextrose 5% 1,000 Ml IVPB PRN PRN Hypoglycemia Protocol Insulin Aspart 2 - 5 units 07/24/24 12:00 07/25/24 11:50 Insulin Aspart (*Bkc) 100 Units/Ml SUB-Q Not Given TIDWM [facility] Protocol Latanoprost 1 drop 07/24/24 21:00 07/24/24 20:31 Latanoprost 0.005% Op Soln 2.5 Ml Btl EACH EYE 1 drop HS SAMUEL Administration Loratadine 10 mg 07/24/24 09:00 07/25/24 09:22 Loratadine 10 Mg Tablet PO 10 mg DAILY SAMUEL Administration Metoprolol Tartrate 25 mg 07/24/24 09:00 07/25/24 09:22 Metoprolol Tartrate 25 Mg Tablet PO 25 mg Q12HR SAMUEL Administration Oxycodone HCl 2.5 mg 07/24/24 23:20 07/24/24 23:42 Oxycodone Hcl (*Crx) 2.5 Mg Tab Ir PO 2.5 mg Q4H PRN Administration Pain Rated 6 or Greater Pantoprazole Sodium 40 mg 07/24/24 09:00 07/25/24 09:23 Pantoprazole 40 Mg Tablet PO 40 mg QAM SAMUEL Administration Warfarin Sodium 8 mg 07/24/24 17:00 07/24/24 17:37 Warfarin (*Pbkc) 4 Mg Tablet PO 8 mg DAILY@1700 SAMUEL Administration Radiology Results: ITS Impressions Renal Ultrasound 07/24/24 11:03 IMPRESSION: 1. Symmetric moderate bilateral renal cortical atrophy. No hydronephrosis. Chest X-Ray 07/25/24 10:39 Impression: Clear lungs. Labs Labs: Laboratory Tests 07/25/24 05:59 07/25/24 12:52 07/25/24 05:59 Sodium 138 Potassium 3.9 Chloride 111 H Carbon Dioxide 18 L Anion Gap 9 BUN 30 H D Creatinine 2.38 H Estim Creat Clear Calc 17 Estimated GFR 20 L Glucose 100 Calcium 8.3 L Phosphorus 3.8 Magnesium 1.8 Total Bilirubin 0.3 AST 24 ALT 33 Alkaline Phosphatase 95 NT-Pro-B Natriuret Pep 6130 H Total Protein 6.0 L Albumin 3.2 L
--- NOTE | 2024-07-25 13:10 | PM.PNGS ---
Progress Note: A&P Assessment and Plan (1) Cholecystostomy care: Code(s): Z43.4 - Encounter for attention to other artificial openings of digestive tract Status: Acute Assessment and Plan: doing well, cont drain and abx, exam benign, low fat diet, ok to dc from surgical standpoint c plans to do cholangiogram as outpt Subjective Subjective Date/Time Seen: 07/25/24 13:10 Interval history: feels good, no c/o Review of Systems Review of Systems: All systems reviewed & are unremarkable except as noted in HPI and below Exam Const: General: cooperative, comfortable and no acute distress Resp: Auscultation: clear to auscultation bilaterally Cardio: Rate: regular rate Rhythm: regular rhythm GI: Inspection: normal to inspection and non-distended GI Palp: No abdominal tenderness and Yes Soft to palpation Other: abby tube c bilious drainage, small stones Objective Data Vital Signs Vital Signs: Vital Signs - 24 hr 07/24/24 14:00 07/24/24 20:31 07/24/24 22:00 Temperature 36.2 C L 36.6 C Pulse Rate 84 70 61 Respiratory Rate 16 18 Blood Pressure 103/68 154/62 H Pulse Oximetry 99 97 Oxygen Delivery 07/25/24 06:00 07/25/24 08:00 07/25/24 09:22 Temperature 36.8 C Pulse Rate 60 62 62 Respiratory Rate 18 Blood Pressure 149/61 H Pulse Oximetry 98 96 Oxygen Delivery Room Air Intake/Output Intake/Output: Intake & Output 07/22/24 07/23/24 07/24/24 07/25/24 23:59 23:59 23:59 23:59 Intake Total 500 2870 1440 Output Total 400 Balance 500 2470 1440 Meds/Results Medications: Active Medications Generic Name Dose Route Start Last Admin Trade Name Freq PRN Reason Stop Dose Admin Acetaminophen 1,000 mg 07/24/24 01:05 07/25/24 09:18 Acetaminophen 500 Mg Tablet PO 1,000 mg Q6H PRN Administration Mild Pain (1-3) or Fever Albuterol 2 puff 07/23/24 22:51 Albuterol Sulfate (*Sp) Aerosol 1 Puff INHALATION QID PRN shortness of breath or wheezing Amlodipine Besylate 10 mg 07/24/24 09:00 07/25/24 09:22 Amlodipine Besylate 10 Mg Tablet PO 10 mg DAILY SAUMEL Administration Amoxicillin/Clavulanate Potassium 1 tablet 07/24/24 17:00 07/25/24 09:23 Amoxicillin/Clavulanate K 500-125 Mg Tab PO 1 tablet BID SAMUEL Administration Aspirin 81 mg 07/24/24 09:00 07/25/24 09:23 Aspirin 81 Mg Enteric Tablet PO 81 mg DAILY SAMUEL Administration Atorvastatin Calcium 80 mg 07/24/24 18:00 07/24/24 17:37 Atorvastatin 40 Mg Tablet PO 80 mg QPM SAMUEL Administration Citalopram Hydrobromide 10 mg 07/24/24 09:00 07/25/24 09:23 Citalopram Hydrobromide 10 Mg Tablet PO 10 mg DAILY SAMUEL Administration Dextrose 12.5 gm 07/24/24 09:46 Dextrose 50% 25 Gm/50 Ml Syringe IV PUSH PRN PRN Hypoglycemia Protocol Enoxaparin Sodium 77 mg 07/24/24 10:10 07/25/24 09:23 Enoxaparin 80 Mg/0.8 Ml Syringe SUB-Q 77 mg Q24H SAMUEL Administration Famotidine 20 mg 07/24/24 13:06 07/24/24 13:28 Famotidine 20 Mg Tablet PO 20 mg Q12HR PRN Administration acid reflux Ferrous Sulfate 325 mg 07/24/24 09:00 07/25/24 09:23 Ferrous Sulfate [address] PO 325 mg DAILY SAMUEL Administration Glucagon 1 mg 07/24/24 09:46 Glucagon For Inj 1 Mg Vial IM PRN PRN Hypoglycemia Protocol Glucose 15 gm 07/24/24 09:46 Glucose Oral Gel 15 Gm Of Glucse In 37.5 Gm Tube PO PRN PRN Hypoglycemia Protocol Hydralazine HCl 25 mg 07/24/24 06:00 07/25/24 06:07 Hydralazine Hcl 25 Mg Tablet PO 25 mg Q8HR SAMUEL Administration Sodium Chloride 1,000 mls @ 100 mls/hr 07/23/24 22:50 07/25/24 09:17 Normal Saline Iv IV CONT 100 mls/hr .Q10H SAMUEL Administration Dextrose 1,000 mls @ 100 mls/hr 07/24/24 09:46 Dextrose 5% 1,000 Ml IVPB PRN PRN Hypoglycemia Protocol Insulin Aspart 2 - 5 units 07/24/24 12:00 07/25/24 11:50 Insulin Aspart (*Bkc) 100 Units/Ml SUB-Q Not Given TIDWM [facility] Protocol Latanoprost 1 drop 07/24/24 21:00 07/24/24 20:31 Latanoprost 0.005% Op Soln 2.5 Ml Btl EACH EYE 1 drop HS SAMUEL Administration Loratadine 10 mg 07/24/24 09:00 07/25/24 09:22 Loratadine 10 Mg Tablet PO 10 mg DAILY SAMUEL Administration Metoprolol Tartrate 25 mg 07/24/24 09:00 07/25/24 09:22 Metoprolol Tartrate 25 Mg Tablet PO 25 mg Q12HR SAMUEL Administration Oxycodone HCl 2.5 mg 07/24/24 23:20 07/24/24 23:42 Oxycodone Hcl (*Crx) 2.5 Mg Tab Ir PO 2.5 mg Q4H PRN Administration Pain Rated 6 or Greater Pantoprazole Sodium 40 mg 07/24/24 09:00 07/25/24 09:23 Pantoprazole 40 Mg Tablet PO 40 mg QAM SAMUEL Administration Warfarin Sodium 8 mg 07/24/24 17:00 07/24/24 17:37 Warfarin (*Pbkc) 4 Mg Tablet PO 8 mg DAILY@1700 SAMUEL Administration Radiology Results: ITS Impressions Renal Ultrasound 07/24/24 11:03 IMPRESSION: 1. Symmetric moderate bilateral renal cortical atrophy. No hydronephrosis. Chest X-Ray 07/25/24 10:39 Impression: Clear lungs. Labs Labs: Laboratory Results - last 24 hr 07/24/24 07/24/24 07/25/24 16:22 20:51 05:59 WBC 8.3 RBC 2.72 L Hgb 8.2 L Hct 26.3 L MCV 96.7 MCH 30.1 MCHC 31.2 L RDW 13.2 Plt Count 399 H MPV 9.5 Immature Gran % (Auto) 1.0 H Neut % (Auto) 68.2 Lymph % (Auto) 20.4 [place] % (Auto) 7.4 Eos % (Auto) 2.4 Baso % (Auto) 0.6 Lymph # (Auto) 1.69 [place] # (Auto) 0.6 Eos # (Auto) 0.2 Baso # (Auto) 0.1 Abs Immat Gran (auto) 0.08 H Absolute Neuts (auto) 5.7 Absolute Nucleated RBC 0.000 Nucleated RBC % 0.0 PT 20.2 H INR 1.7 Sodium 138 Potassium 3.9 Chloride 111 H Carbon Dioxide 18 L Anion Gap 9 BUN 30 H D Creatinine 2.38 H Estim Creat Clear Calc 17 Estimated GFR 20 L Glucose 100 POC Capillary Glucose 142 H 168 H Calcium 8.3 L Phosphorus 3.8 Magnesium 1.8 Total Bilirubin 0.3 AST 24 ALT 33 Alkaline Phosphatase 95 NT-Pro-B Natriuret Pep 6130 H Total Protein 6.0 L Albumin 3.2 L 07/25/24 07/25/24 07:34 11:29 WBC RBC Hgb Hct MCV MCH MCHC RDW Plt Count MPV Immature Gran % (Auto) Neut % (Auto) Lymph % (Auto) [place] % (Auto) Eos % (Auto) Baso % (Auto) Lymph # (Auto) [place] # (Auto) Eos # (Auto) Baso # (Auto) Abs Immat Gran (auto) Absolute Neuts (auto) Absolute Nucleated RBC Nucleated RBC % PT INR Sodium Potassium Chloride Carbon Dioxide Anion Gap BUN Creatinine Estim Creat Clear Calc Estimated GFR Glucose POC Capillary Glucose 105 151 H Calcium Phosphorus Magnesium Total Bilirubin AST ALT Alkaline Phosphatase NT-Pro-B Natriuret Pep Total Protein Albumin
[2024-07-25 13:33] LABS: Anion Gap 9 mmol/L (4-12); Calcium 8.2 mg/dL (8.4-10.2); Carbon Dioxide 19 mmol/L (22-30); Chloride 109 mmol/L (98-107); Glucose 156 mg/dL (65-110); Sodium 137 mmol/L (137-145)
[2024-07-25 13:54] VITALS: BP 172/58; PULSE 82; RESP 18; TEMP 35.6; O2SAT 100
[2024-07-25 14:40] LABS: Blood Urea Nitrogen 25 mg/dL (7-17); Estimated CRCL calculation 20 ml/min; Estimated Glomerular Filt Rate 23; Potassium 4.1 mmol/L (3.4-5.0)
--- NOTE | 2024-07-25 14:49 | P.DS_ITS ---
DS: Admitting Diagnosis Discharge Date 07/25/2024 Admitting Diagnosis Acute Kidney Injury with CKD DS: Discharge Diagnosis Discharge Diagnosis (1) Acute kidney injury superimposed on chronic kidney disease: Code(s): N17.9 - Acute kidney failure, unspecified; N18.9 - Chronic kidney disease, unspecified Status: Acute Assessment and Plan: Patient with acute cholecystitis with bacteremia recently while inpatient 07/15- 07/21/2024. The reason for the patient's acute component of renal failure is multifactorial due to recent contrast load loads that were necessary including for CT of the abdomen and pelvis to evaluate acute cholecystitis, contrast for recent cardiac catheterization due to non STEMI, dehydration due to decreased oral intake in the setting of continued use of Lasix and spironolactone as well as continued use of metformin. -Started on antibiotic coverage to Rocephin and Flagyl overnight while admitted, pending gen surg recs. Cholecystectomy drain remains in place and draining bilious appearing drainage. -General surgery consulted with recs to D/C IV abx and switch her back to her Augmentin that she was D/C'd with but renal dosed -->Creat Cl yielded 22.1 ml/min based on pt sex, age, weight, and serum creatine for which recommendations of Augmentin are: CrCl 10 to <30 mL/minute: 250 to 500 mg every 12 hours -->Augmentin 500/125mg BID ordered yesterday and will continue upon discharge x3 more days (started on 07/21 - original order for 7 days) -Maintenance IVF hydration with normal saline at 100 mL an hour proved to be beneficial, increase water intake at home -I/O 0500 & 1700 -Renal diet -Avoid renal toxic medications in hospital - holding metformin, Vit D, furosemide, spironolactone for now, per neph, OK to resume a couple of days after discharge (~/3-07/28) -Renal US 07/23/2024: IMPRESSION: 1. Symmetric moderate bilateral renal cortical atrophy. No hydronephrosis. -Pt persistent about going home today. Spoke to Dr. Perez and they signed off due to improving kidney labs, will obtain one more set prior to afternoon discharge. Neph also OK with D/C if pt f/u with PCP in x1 week for lab work. Pt agreeable, reports that she has this appt scheduled already for next week. -->Trended BMP x1 more time yielding: creatinine of 2.07 (2) Cholecystitis: Code(s): K81.9 - Cholecystitis, unspecified Status: Acute Assessment and Plan: -Dx and tx while inpt last week, non surgical candidate so drain was placed - has been stable with bilious drainage, denies any pain -General surgery consulted with recs to D/C IV abx (rocephin & flagyl) and switch her back to her Augmentin that she was D/C'd with but renal dosed (500/125mg BID) d/t dx of bacteremia. Will write for remaining days needed (x3 days) due to original rx started on 07/21. -F/u with gen surgery in 2-3 week outpt, pt aware that she still needs to make this appt. (3) Diabetes 1.5, managed as type 2: Code(s): E13.9 - Other specified diabetes mellitus without complications Status: Acute Assessment and Plan: -Patient does have history of diabetes but is currently euglycemic, last BS 105 at 0730 on . -No insulin use at home, metformin 500mg BID but holding for a few days post discharge, ~07/27-07/28. To f/u with PCP -Instructed pt to pay close attention to BS readings over the next week due to prednisone use d/t gout flare (4) Subtherapeutic international normalized ratio (INR): Code(s): R79.1 - Abnormal coagulation profile Status: Acute Assessment and Plan: -Patient currently has a subtherapeutic INR (1.7 as of 0530 07/25/2024). Increased the patient's Coumadin to 8 mg daily (baseline 6mg) with associated Lovenox while inpt, will be D/C with 8mg Coumadin and f/u with PCP. (5) GERD (gastroesophageal reflux disease): Qualifiers: Esophagitis presence: esophagitis presence not specified Qualified Code(s): K21.9 - Gastro-esophageal reflux disease without esophagitis Code(s): K21.9 - Gastro-esophageal reflux disease without esophagitis Status: Acute Assessment and Plan: -Continue pt's home PPI therapy for her GERD (Pantoprazole 40mg daily) (6) NSTEMI (non-ST elevated myocardial infarction): Code(s): I21.4 - Non-ST elevation (NSTEMI) myocardial infarction Status: Acute Assessment and Plan: -Patient had recent NSTEMI and had cardiac catheterization during last recent admission demonstrating stenosis that will need eventual stent placement once she has recovered from acute cholecystitis and bacteremia -Patient is not currently having any chest pain or cardiac symptoms and has been stable during her visit. -Reports that her outpatient cards appt was 07/23 here at [facility], no new information, just reiterated need for eventual stent placement once she has recovered from acute cholecystitis and bacteremia (7) CHF (congestive heart failure): Qualifiers: Heart failure chronicity: chronic Heart failure type: diastolic Qualified Code(s): I50.32 - Chronic diastolic (congestive) heart failure Code(s): I50.9 - Heart failure, unspecified Status: Acute Assessment and Plan: -Asymptomatic today (no SOB, CP, LE edema, cough) -BNP 6130 per re-draw this AM labs, continue holding furosemide and spironolactone until kidney function resolves, nephrology recommends a couple of days after discharge (~07/27-07/28) -Follow-up with PCP (8) Ankle pain: Qualifiers: Chronicity: acute Laterality: left Qualified Code(s): M25.572 - Pain in left ankle and joints of left foot Code(s): M25.579 - Pain in unspecified ankle and joints of unspecified foot Status: Acute Assessment and Plan: -Increased pain through the night and with my assessment today. Received oxy 2.5 mg over night. -Worked up by PCP on 07/23 office visit: -->XR WDL, IMPRESSION: No acute osseous abnormality left foot. Polyarticular osteoarthritic changes. , Uric acid: 8.7, ESR: >140 -Pt reports that acetaminophen was controlling pain, but not anymore. Plan to treat as gout flare with Prednisone 40mg dose today and upon discharge, prednisone taper -->To f/u with PCP on this matter DS: Summary Hospital Course Reason for hospitalization: GIO on CKD Hospital Course: Pt admitted with GIO on CKD. 4.90 creatinine initially in the ED, down to 2.07 today with fluids and holding renal toxic medications through the duration of her stay. Pt to re-start spironolactone, lasix, vit D, and metformin on 07/28 per nephrology to give her kidneys a chance to return to baseline function. Pt also recently admitted last week for acute cholecystitis and a drain was placed, which has been stable with bilious fluid draining - GI has signed off for D/C in this aspect. While at her PCP office just prior to this admission, pt was worked up for acute L ankle pain with yielded an acute gout flare, the first the pt has ever had. Pt treated with acetaminophen initially then started on prednisone in hospital and D/C with a taper; pt reports feeling better after initial dose of prednisone in hospital. Status at Discharge Functional status at discharge: independent ambulation Overall status at discharge: patient is progressing back to baseline Time Spent with Patient Time attestation: Total time spent providing and/or coordinating discharge services: Exam Const: General: comfortable and no acute distress HENMT: Face/Nose/Sinus: Normal nares present Mouth: Yes moist mucous membranes Eyes: General: appearance normal, both eyes and all related structures Sclera: sclerae normal Pupils: Equal, round and reactive pupils present Neck: Neck: supple and no JVD Resp: Effort & Inspection: normal respiratory effort Auscultation: clear to auscultation bilaterally Cardio: Rate: regular rate Rhythm: regular rhythm GI: GI Palp: Yes Soft to palpation and No Tenderness to palpation present (GI) Auscultation: normal bowel sounds Other: Percutaneous cholecystostomy tube in the right upper quadrant with bilious appearing output Skin: General skin exam: normal color and no rashes or lesions noted Wounds: no wounds Neuro: Motor exam (neuro): 5/5 motor strength present throughout Sensory Exam: normal sensation Extrem: Other: L lateral ankle: mild swelling and TTP, no erythema Psych: Mental Status: mental status grossly normal Affect: normal affect DS: Data Data Completed and Pending Labs on day of discharge: Labs from last 24 hours 07/25/24 07/25/24 07/24/24 07:34 05:59 20:51 WBC 8.3 RBC 2.72 L Hgb 8.2 L Hct 26.3 L MCV 96.7 MCH 30.1 MCHC 31.2 L RDW 13.2 Plt Count 399 H MPV 9.5 Immature Gran % (Auto) 1.0 H Neut % (Auto) 68.2 Lymph % (Auto) 20.4 [place] % (Auto) 7.4 Eos % (Auto) 2.4 Baso % (Auto) 0.6 Lymph # (Auto) 1.69 [place] # (Auto) 0.6 Eos # (Auto) 0.2 Baso # (Auto) 0.1 Abs Immat Gran (auto) 0.08 H Absolute Neuts (auto) 5.7 Absolute Nucleated RBC 0.000 Nucleated RBC % 0.0 PT 20.2 H INR 1.7 Sodium 138 Potassium 3.9 Chloride 111 H Carbon Dioxide 18 L Anion Gap 9 BUN 30 H D Creatinine 2.38 H Estim Creat Clear Calc 17 Estimated GFR 20 L Glucose 100 POC Capillary Glucose 105 168 H Calcium 8.3 L Phosphorus 3.8 Magnesium 1.8 Total Bilirubin 0.3 AST 24 ALT 33 Alkaline Phosphatase 95 NT-Pro-B Natriuret Pep 6130 H Total Protein 6.0 L Albumin 3.2 L Urine Eosinophils Protein/Creat Ratio 2 07/24/24 07/24/24 07/24/24 16:22 12:02 09:37 WBC RBC Hgb Hct MCV MCH MCHC RDW Plt Count MPV Immature Gran % (Auto) Neut % (Auto) Lymph % (Auto) [place] % (Auto) Eos % (Auto) Baso % (Auto) Lymph # (Auto) [place] # (Auto) Eos # (Auto) Baso # (Auto) Abs Immat Gran (auto) Absolute Neuts (auto) Absolute Nucleated RBC Nucleated RBC % PT INR Sodium Potassium Chloride Carbon Dioxide Anion Gap BUN Creatinine Estim Creat Clear Calc Estimated GFR Glucose POC Capillary Glucose 142 H 128 H Calcium Phosphorus Magnesium Total Bilirubin AST ALT Alkaline Phosphatase NT-Pro-B Natriuret Pep Total Protein Albumin Urine Eosinophils None seen Protein/Creat Ratio 2 07/24/24 09:30 WBC RBC Hgb Hct MCV MCH MCHC RDW Plt Count MPV Immature Gran % (Auto) Neut % (Auto) Lymph % (Auto) [place] % (Auto) Eos % (Auto) Baso % (Auto) Lymph # (Auto) [place] # (Auto) Eos # (Auto) Baso # (Auto) Abs Immat Gran (auto) Absolute Neuts (auto) Absolute Nucleated RBC Nucleated RBC % PT INR Sodium Potassium Chloride Carbon Dioxide Anion Gap BUN Creatinine Estim Creat Clear Calc Estimated GFR Glucose POC Capillary Glucose Calcium Phosphorus Magnesium Total Bilirubin AST ALT Alkaline Phosphatase NT-Pro-B Natriuret Pep Total Protein Albumin Urine Eosinophils Protein/Creat Ratio 2 1.43 H Discharge Plan Discharge Attending physician on discharge: Jamie Grigsby Consulting providers: Citlali Perez; Jasson Castaneda Discharging Clinician: Aminata Velásquez Anticipated Discharge Date/Time: 07/25/24 16:00 Patient Disposition: Home with Home Health Service Activity: july shower Diet: diabetic and renal Discharge Instructions: Per Care Coordination. Patient to have [facility] for RN/PT/OT eval and treat [phone]. Home Health with contact patient to schedule first visit. 1. We increased your Coumadin from 6mg to 8mg, continue to take this daily and follow-up with your PCP and signwriter. This new prescription has been sent to your pharmacy. 2. For your gout flare up in your left ankle, we are sending you home with a prednisone pack, see this pack for directions and make sure you take this med ication in the AM as it can keep you awake. Pay special attention to your blood sugars over the next 1-2 weeks as this medication can increase your blood sugars. Follow-up with your PCP and rubber compounder supervisor for increasing blood sugars not controlled with your metformin. 3. HOLD the following medications until Monday07/28/2024: Vitamin D, Metformin, spironolactone, and Lasix (furosemide) as these are processed through the kidneys. 4. Remember to make your follow-up GI appt for 2-3 weeks 5. The antibiotic the GI sent you home on (Augmentin) has been changes from three times a day, to two times a day. I send this new prescription to your pharmacy, remember to take your night dose this PM. 6. Make sure to keep up on your hydration, Gatorade G2 is another option other than water like we talked about. 7. Please make sure to follow-up with your PCP appt next week so they can make sure your gout and blood sugars are under control as well as your kidneys are back to their baseline. Patient Instructions: Antibiotic Form, Warfarin (By mouth), Heart Failure (DC), Low Purine Diet (DC), Gout (GEN) Patient Language: Slovak Stand Alone Forms: General Discharge Information Follow-up/Referrals: Christian Cardozo MD [Primary Care Provider] - 1 Week (Kidney labs, gout flare check (& glucose check d/t prednisone taper)) Discharge Medications: New amoxicillin-pot clavulanate [Augmentin] 500-125 mg Tablet 1 tablet PO BID Qty: 7 0RF prednisone 10 mg tablets,dose pack See Taper PO DAILY 7 Days Qty: 42 0RF Taper: Prednisone Taper from 60 mg;12 days 60 mg DAILY for 2 Days and 0 Hour 50 mg DAILY for 2 Days and 0 Hour 40 mg DAILY for 2 Days and 0 Hour 30 mg DAILY for 2 Days and 0 Hour 20 mg DAILY for 2 Days and 0 Hour 10 mg DAILY for 2 Days and 0 Hour Continued latanoprost 0.005 % drops 1 drp EACH EYE HS (DME) Accu-Chek Ingrid Plus test strp Strip See Rx Instructions .ROUTE .MEDSUPPLY Qty: 100 2RF Rx Instructions: Use to check blood sugar 3 times daily. loratadine 10 mg tablet 10 mg PO DAILY metoprolol tartrate 25 mg tablet 25 mg PO BID aspirin 81 mg Tablet,Delayed Release (Dr/Ec) 81 mg PO DAILY lansoprazole 15 mg capsule,delayed release(DR/EC) 15 mg PO DAILY atorvastatin 80 mg tablet 80 mg PO QPM Rx Instructions: TAKE 1 TABLET EVERY DAY hydralazine 25 mg tablet 25 mg PO TID acetaminophen [Arthritis Pain Relief (acetam)] 650 mg tablet extended release 650 mg PO Q8H PRN (Reason: pain) ferrous sulfate [Iron (ferrous sulfate)] 325 mg (65 mg iron) tablet 325 mg PO DAILY Qty: 90 2RF citalopram 10 mg tablet 10 mg PO DAILY Qty: 90 1RF albuterol sulfate 90 mcg/actuation HFA aerosol inhaler 2 puff inhalation QID PRN (Reason: shortness of breath or wheezing) Qty: 6.7 0RF amlodipine 10 mg tablet 10 mg PO DAILY Qty: 90 2RF Rx Instructions: Take 1 tablet by mouth once daily Changed warfarin 2 mg tablet 8 mg PO DAILY MDD 8mg Qty: 30 0RF Held metformin 500 mg tablet 500 mg PO BID Hold Instructions: Resume on 07/28/24. Hold until Monday, per the kidney team Rx Instructions: TAKE 1 TABLET TWICE DAILY furosemide 20 mg tablet See Rx Instructions PO .COMPLEX Hold Instructions: Resume on 07/28/24. Hold until Monday, per the kidney team Patient Comments: not started yet Rx Instructions: orally every other day spironolactone 25 mg tablet 25 mg PO DAILY Qty: 90 2RF Hold Instructions: Resume on 07/28/24. Hold until Monday per the kidney team ergocalciferol (vitamin D2) [Vitamin D2] 1,250 mcg (50,000 unit) capsule 1,250 mcg PO WEEKLY Qty: 14 0RF Hold Instructions: Resume on 07/28/24. Hold until Monday, per the kidney team Patient Comments: has not taken yet Discontinued hydralazine 50 mg tablet 25 mg PO TID cetirizine 10 mg tablet 10 mg PO DAILY amoxicillin-pot clavulanate [Augmentin] 500-125 mg Tablet 1 tablet PO Q8HR Qty: 21 0RF Date of admission: 07/23/24 18:35 Primary Care Provider: Christian Cardozo Admitting Provider: Jamie Grigsby Attending physician on admission: Jamie Grigsby Condition: Stable Quality VTE Prophylaxis VTE prophylaxis: pharmacologic ordered (Please see above) Hospitalist MIPS Heart Failure (Exclusion) Patient has history of Heart Transplant or Left Ventricular Assistive Device?: Yes IF YES, STOP HERE
[2024-07-25] MEDS: WARFARIN (*PBKC) 4 MG TABLET 8 MG PO (16:00)
== END 2024-07-25 16:30 | disposition home health service (06) | DRG 683 ==
LOC: ANHED 16:56 → ANH3MEDSUR 18:34
PROVIDERS: Internal Medicine; Internal Medicine Nephrology; Admitting Provider Internal Medicine; Emergency Provider Emergency Medicine; PCP Family Medicine
DX: N17.9 Acute kidney failure, unspecified (principal); I13.0 Hypertensive heart and chronic kidney disease with heart failure and stage 1 through stage 4 chronic kidney disease, or unspecified chronic kidney disease; I50.32 Chronic diastolic (congestive) heart failure; K81.9 Cholecystitis, unspecified; E11.22 Type 2 diabetes mellitus with diabetic chronic kidney disease; I48.0 Paroxysmal atrial fibrillation; K21.9 Gastro-esophageal reflux disease without esophagitis; I25.2 Old myocardial infarction; N18.32 Chronic kidney disease, stage 3b; R79.1 Abnormal coagulation profile; Z97.8 Presence of other specified devices; Z79.01 Long term (current) use of anticoagulants; Z79.84 Long term (current) use of oral hypoglycemic drugs; Z79.82 Long term (current) use of aspirin; Z86.711 Personal history of pulmonary embolism
CPT/HCPCS: 36415; 71045; 76775; 80048; 80053; 81001; 82550; 82570; 82948; 83605; 83735; 83880; 84100; 84156; 84300; 84540; 85025; 85027; 85610; 85730; 85999; 96360; 99285; A9270; G0378; J0696; J1650; J1836; J7030; J7040; J7512

== ENCOUNTER 2024-07-31 13:49 | Inpatient (IN) | payer MEDICARE, SELFPAY ==
[2024-07-31] VITALS (12 sets, daily range): BP systolic 127–191; BP diastolic 47–74; PULSE 49–82; RESP 16–29; TEMP 36.6–36.8; O2SAT 91–100; BMI 28.2
--- NOTE | ~2024-07-31 | XR_ITS ---
Exam: Abdomen 1V HISTORY: Not passing gas COMPARISON: Reference is made to a CT examination of the abdomen and pelvis dated 07/31/2024 TECHNIQUE: Supine images of the abdomen FINDINGS: Bowel gas pattern is nonspecific and non-obstructive. Pigtail catheter within the right upper quadrant. Fecal stasis within the ascending colon. IV contrast opacifies the bladder. There is no free air or deep sulci. No pathologic calcifications are seen. IMPRESSION: Nonspecific, nonobstructive bowel gas pattern, as detailed above. Reviewed, dictated and finalized at location A.
--- NOTE | ~2024-07-31 | US_ITS ---
RIGHT LOWER EXTREMITY VENOUS ULTRASOUND Ordering provider: Reinaldo Medley MD History: . DVT . Comparison: None. FINDINGS: --COMMON FEMORAL: Patent and free of thrombus. Normal compressibility, phasic flow and augmentation. --PROXIMAL SUPERFICIAL FEMORAL: Patent and free of thrombus. Normal compressibility, phasic flow and augmentation. --DISTAL SUPERFICIAL FEMORAL: Patent and free of thrombus. Normal compressibility, phasic flow and au gmentation. --POPLITEAL: Patent and free of thrombus. Normal compressibility, phasic flow and augmentation. --POSTERIOR TIBIAL: Patent and free of thrombus. Normal compressibility, phasic flow and augmentation . IMPRESSION: Negative right lower extremity venous US. No deep vein thrombosis. Reviewed, dictated and finalized at location A.
--- NOTE | ~2024-07-31 | CT_ITS ---
CLINICAL INDICATION: Right upper quadrant pain COMPARISON: 07/16/2024. TECHNIQUE: Multiple contiguous axial images of the abdomen and pelvis were performed following the ad ministration of with 100 mL Omnipaque-350 intravenous contrast The dose-length product (DLP) was 787.87 mGy-cm. Automated exposure control and iterative reconstruction technique were employed. FINDINGS/OBSERVATIONS: Visualized lower thorax: Increased right-sided pleural effusion with adjacent compressive atelectasis. The left lung base is clear. The heart is enlarged, without pericardial effusion. Moderate hiatal hernia is present. Liver: The liver demonstrates homogeneous enhancement and is not enlarged. Gallbladder and biliary system: Redemonstration of a pigtail catheter within the gallbladder via a transhepatic approach. Persistent surrounding inflammatory change. Pancreas: The pancreas demonstrates fatty atrophy, and otherwise enhances homogeneously without ductal dilatati on. Spleen: The spleen enhances homogeneously and is not enlarged. Kidneys: The bilateral kidneys are atrophic, and otherwise enhance symmetrically without hydronephrosis or monisha al calculi. Adrenal glands: Unremarkable. Gastrointestinal tract: Colonic diverticulosis without surrounding inflammatory change. Fecal stasis within the colon. Appendix: The appendix is of normal caliber (axial series, images 110 through 123). Vasculature: Calcified atherosclerotic disease. Asymmetric enlargement of the right common femoral vein with surrounding inflammatory change, a findi ngs suggesting intraluminal thrombus for which focused ultrasound is recommended. Lymph nodes: No pathologically enlarged or morphologically suspicious lymph nodes within the retroperitoneum or at the root of the mesentery. Pelvic structures: The bladder is decompressed, with surrounding inflammatory change, findings suggesting cystitis. The uterus is anteverted and anteflexed and somewhat atrophic. Free fluid is identified within the deep pelvis. Body wall and musculoskeletal: Age-appropriate degenerative disease within the lumbosacral spine. IMPRESSION: Findings at the level of the right common femoral vein for which thrombus is suspected. Findings within the bladder for which cystitis is suspected. Free fluid within the deep pelvis. Redemonstration of a percutaneous cholecystostomy, in good position within the gallbladder which is n ow decompressed with persistent surrounding inflammatory change. Reviewed, dictated and finalized at location A. IMPRESSION: Findings at the level of the right common femoral vein for which thrombus is mcmanus spected. Findings within the bladder for which cystitis is suspected. Free fluid within the deep pelvis. Redemonstration of a percutaneous cholecystostomy, in good position within the gallbladder which is now decompressed with persistent surrounding inflammatory change.
--- NOTE | ~2024-07-31 | XR_ITS ---
EXAMINATION: XR catheter cholangiogram DATE: 08/02/2024 11:24 INDICATION: Right upper quadrant pain. Decreased output from cholecystostomy tube. TECHNIQUE: 11 images of the right upper quadrant were obtained prior to and during injection of 12 mL Omnipaque 240 contrast into the existing percutaneous cholecystostomy tube. The amount of fluoroscop y time used during this procedure was 1.2 minutes. Total DAP was 14.593 Gycm^2. COMPARISON: CT dated 07/31/2024 FINDINGS: Contrast fills the gallbladder which demonstrates a couple internal filling defects likely representing gallstones. The cystic and common bile ducts are patent with contrast draining into the duodenum. There was minimal extravasation of contrast at the catheter exit site which can be seen ext ending in a linear pattern along the immediately adjacent caudal margin of the right hepatic lobe. IMPRESSION: 1. Distal loop of the percutaneous cholecystostomy tube along with a few gallstones within the fundus of the decompressed gallbladder with patent cystic and common bile ducts. Reviewed, dictated and finalized at location A. IMPRESSION: 1. Distal loop of the percutaneous cholecystostomy tube along with a few gallst ones within the fundus of the decompressed gallbladder with patent cystic and c ommon bile ducts.
--- OUTSIDE RECORDS SUMMARY | 2024-07-31 13:58 | XMS_ITS | Clinical Summary ---
Author Organization [facility] Address [address] [place] [address] Phone Care Team Providers Care Financial Institution Manager Name Role Phone Christian Cardozo MD [...] to complete this topic Insurance [address] [place] [address] MEDICARE C BCBS PPO MODE [place] [id number] Care Teams Financial Institution Manager Relationship Specialty Start Date End Date Christian Cardozo MD [address] [place] [address] PCP - General Family Medicine 08/04/23
--- OUTSIDE RECORDS SUMMARY | 2024-07-31 13:58 | XMS_ITS | Encounter Summary ---
Author Organization [facility] Address [address] [place] [address] Phone Care Team Providers Care Vice President Of Talent Management Name Role Phone Christian Cardozo MD Primary Care Provider Encounter Details Date Type Department Care Team (Latest Contact Info) Description 08/04/2023 Transcribe [facility] [address] [place] [address] Dhiraj Witt MD [id number] [place] [address] Encounter for other specified special examinations (Primary [...] Primary documented in this encounter Care Teams Vice President Of Talent Management Relationship Specialty Start Date End Date Christian Cardozo MD [address] [place] [address] PCP - General Family Medicine 08/04/23 documented as of this encounter
--- OUTSIDE RECORDS SUMMARY | 2024-07-31 13:58 | XMS_ITS ---
Author Organization [facility] Address [address] [place], [place] [id number] Care Team Providers Care Aerial Crop Duster Name Role Phone FRANCISCO FUCHS Unavailable [phone] Christian Cardozo Unavailable Unavailable Allergies No Known [...] Medicationcitalopram 10 MG Oral Tablet *Reorder from [employer] for eRx and Interaction Alerts* 10/28/2016 Unknown valsartan 40 MG Oral Tablet [Diovan] ORAL valsartan 40 MG Oral Tablet [Diovan]Original Medicationvalsartan 40 MG Oral Tablet [Diovan] *Reorder from [facility] for eRx and Interaction Alerts* 10/28/2016 Unknown metformin hydrochloride 500 MG Oral Tablet ORAL metformin hydrochloride 500 MG Oral TabletOriginal Medicationmetformin hydrochloride 500 MG Oral Tablet *Reorder from [facility] for eRx and Interaction Alerts* 10/28/2016 Unknown ezetimibe 10 MG / simvastatin 10 MG Oral Tablet [Vytorin] ORAL ezetimibe 10 MG / simvastatin 10 MG Oral Tablet [Vytorin]Original Medicationezetimibe 10 MG / simvastatin 10 MG Oral Tablet [Vytorin] *Reorder from [employer] for eRx and Interaction Alerts* 10/28/2016 Unknown Encounters Encounter Location Date Provider Diagnosis [facility] [address] [place], [place] [id number] 05/30/2024 FRANCISCO FUCHS Tinea unguium B35.1 ; Pain in right toe(s) M79.674 ; Pain in left toe(s) M79.675 ; Atherosclerosis of [place] arteries of extremities with intermittent claudication, bilateral [...] toe(s) (ICD-10 - M79.675) 05/30/2024 Atherosclerosis of [place] arteries of extremities with intermittent claudication, bilateral [...] sooner if problems develop. Provider Name:LIN VARGAS, 08/22/2024 02:30:00 PM, [address] [place], [place], [id number], Progress Notes * MELISSA VALERIO EDOB:[birth year] (83 yo F)Acc No.[id number]:05/30/2024 Patient: MELISSA STEWART Provider: Antonio Fuchs DPM :1940 A ge:83 Y S ex:Female Date:05/30/2024 Address:[address] [place] [address] [place], [place] [id number] Subjective: * Chief Complaints: * 1 . [...] Patient denies c hest pain, history of [place], irregular heartbeat. M usculoskeletal: Patient complains of [...] Medicationcitalopram 10 MG Oral Tablet *Reorder from [facility] for eRx and Interaction Alerts*, Unknown ezetimibe 10 MG / simvastatin 10 MG Oral Tablet [Vytorin] ORAL , Notes to Pharmacist: ezetimibe 10 MG / simvastatin 10 MG Oral Tablet [Vytorin]Original Medicationezetimibe 10 MG / simvastatin 10 MG Oral Tablet [Vytorin] *Reorder from [facility] for eRx and Interaction Alerts*, Unknown metformin hydrochloride 500 MG Oral Tablet ORAL , Notes to Pharmacist: metformin hydrochloride 500 MG Oral TabletOriginal Medicationmetformin hydrochloride 500 MG Oral Tablet *Reorder from [facility] for eRx and Interaction Alerts*, Unknown valsartan 40 MG Oral Tablet [Diovan] ORAL , Notes to Pharmacist: valsartan 40 MG Oral Tablet [Diovan]Original Medicationvalsartan 40 MG Oral Tablet [Diovan] *Reorder from [facility] for eRx and Interaction Alerts*, Medication [...] - M79.675 4 . 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 * Procedure Codes: * Electronic signature of FRANCISCO FUCHS DPM on 07/31/2024 at 01:58 PM CDT Sign off status: Pending * Provider: Antonio Fuchs DPM Date: 0 05/30/2024 Generated for Jacquie lord/Robert/Rhiannon on: 0 07/31/2024 01:58 PM CDT History and Physical Notes * HPI [...]
--- OUTSIDE RECORDS SUMMARY | 2024-07-31 13:58 | XMS_ITS ---
Author Organization [facility] Address [address] [place], [place] [id number] Care Team Providers Care Mycologist Name Role Phone FRANCISCO FUCHS Unavailable [phone] Christian Cardozo Unavailable Unavailable REASON FOR VISIT [...] Medicationcitalopram 10 MG Oral Tablet *Reorder from [employer] for eRx and Interaction Alerts* 10/28/2016 Unknown ezetimibe 10 MG / simvastatin 10 MG Oral Tablet [Vytorin] ORAL ezetimibe 10 MG / simvastatin 10 MG Oral Tablet [Vytorin]Original Medicationezetimibe 10 MG / simvastatin 10 MG Oral Tablet [Vytorin] *Reorder from [employer] for eRx and Interaction Alerts* 10/28/2016 Unknown metformin hydrochloride 500 MG Oral Tablet ORAL metformin hydrochloride 500 MG Oral TabletOriginal Medicationmetformin hydrochloride 500 MG Oral Tablet *Reorder from [employer] for eRx and Interaction Alerts* 10/28/2016 Unknown valsartan 40 MG Oral Tablet [Diovan] ORAL valsartan 40 MG Oral Tablet [Diovan]Original Medicationvalsartan 40 MG Oral Tablet [Diovan] *Reorder from [employer] for eRx and Interaction Alerts* 10/28/2016 Unknown Encounters Encounter Location Date Provider Diagnosis [facility] [address] [place], [place] [id number] 03/28/2024 FRANCISCO FUCHS Tinea unguium B35.1 ; Pain in right toe(s) M79.674 ; Pain in left toe(s) M79.675 ; Atherosclerosis of [place] arteries of extremities with intermittent claudication, bilateral [...] toe(s) (ICD-10 - M79.675) 03/28/2024 Atherosclerosis of [place] arteries of extremities with intermittent claudication, bilateral [...] Provider Name:LIN VARGAS, 08/22/2024 02:30:00 PM, [address] [place], [place], [id number], Progress Notes * MELISSA VALERIO EDOB:[birth year] (83 yo F)Acc No.[id number]:03/28/2024 Patient: MELISSA STEWART Provider: Antonio Fuchs DPM :1940 A ge:83 Y S ex:Female Date:03/28/2024 Address:[address] [place] [address] [place], [place] [id number] Subjective: * Chief Complaints: * Yaihr mcwilliams presents for at-risk foot care . [...] seen by Dr. Cardozo was 02/2024., Initials [facility] , Patient presents to the office for [...] Patient denies c hest pain, history of [place], irregular heartbeat. M usculoskeletal: Patient complains of [...] Medicationcitalopram 10 MG Oral Tablet *Reorder from [facility] for eRx and Interaction Alerts*ezetimibe 10 MG / simvastatin 10 MG Oral Tablet [Vytorin] ORAL , Notes to Pharmacist: ezetimibe 10 MG / simvastatin 10 MG Oral Tablet [Vytorin]Original Medicationezetimibe 10 MG / simvastatin 10 MG Oral Tablet [Vytorin] *Reorder from [facility] for eRx and Interaction Alerts*metformin hydrochloride 500 MG Oral Tablet ORAL , Notes to Pharmacist: metformin hydrochloride 500 MG Oral TabletOriginal Medicationmetformin hydrochloride 500 MG Oral Tablet *Reorder from [facility] for eRx and Interaction Alerts*valsartan 40 MG Oral Tablet [Diovan] ORAL , Notes to Pharmacist: valsartan 40 MG Oral Tablet [Diovan]Original Medicationvalsartan 40 MG Oral Tablet [Diovan] *Reorder from [facility] for eRx and Interaction Alerts*Medication List reviewed and reconciled with the patientUnknown citalopram 10 MG Oral Tablet ORAL , Notes to Pharmacist: citalopram 10 MG Oral TabletOriginal Medicationcitalopram 10 MG Oral Tablet *Reorder from [facility] for eRx and Interaction Alerts*Unknown ezetimibe 10 MG / simvastatin 10 MG Oral Tablet [Vytorin] ORAL , Notes to Pharmacist: ezetimibe 10 MG / simvastatin 10 MG Oral Tablet [Vytorin]Original Medicationezetimibe 10 MG / simvastatin 10 MG Oral Tablet [Vytorin] *Reorder from [facility] for eRx and Interaction Alerts*Unknown metformin hydrochloride 500 MG Oral Tablet ORAL , Notes to Pharmacist: metformin hydrochloride 500 MG Oral TabletOriginal Medicationmetformin hydrochloride 500 MG Oral Tablet *Reorder from [facility] for eRx and Interaction Alerts*Unknown valsartan 40 MG Oral Tablet [Diovan] ORAL , Notes to Pharmacist: valsartan 40 MG Oral Tablet [Diovan]Original Medicationvalsartan 40 MG Oral Tablet [Diovan] *Reorder from [facility] for eRx and Interaction Alerts*Medication List [...] - M79.675 4 . 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 Modifiers: Q8 * PER ATTACHER Sign off status: Completed true * Provider: Antoino Fuchs DPM Date: 0 03/28/2024 Generated for Jacquie lrod/Robert/Ceeitting on: 0 07/31/2024 01:58 PM CDT History [...]
--- OUTSIDE RECORDS SUMMARY | 2024-07-31 13:58 | XMS_ITS | Continuity of Care Document ---
Author Organization [facility] Address [address] [place] [address] Dr Sult[address] [place] [id number] Phone Care Team Providers Care Chemical Production Machine Operator Name Role Phone Salcedo OD, Tod Unavailable [...] on Encounter Office/outpat ient Visit, Est [facility], [address] [place] [address] [address], [place], [place], [address], tel:[phone] [facility] No Information Oct-2 1-201 0 Salcedo OD Tod. [address] [facility] , [address], [place], [place], [facility], [place]. tel:[phone] [facility], [address] [place] [address] [address], [place], [place], [address], tel:[phone] [facility] No Information Oct-1 5-201 0 Salcedo OD Tod. [address], [place], [address], [place]. tel:[phone] [facility], [address] [place] [address] [address], [place], [place], [address], [place] tel:[phone] [facility] No Information Oct-0 6-201 0 Sharifa Cheung. [address], [place], [address], [place]. tel:[phone] Referring Provider: Jonatan Munoz [address] [facility] [address], [place], [facility]. tel:[phone] [facility], [address] [place] [address] [address], [place], [place], [address], [place] tel:[phone] [facility] No Information Sep-2 7-201 0 Doisy Edaye. [address] , [address], [place], [facility], . tel:[phone] Referring Provider: Jonatan Munoz, [address], [place], [facility]. tel:[phone] Office/outpat ient Visit, Est [facility], [address], [place], [place], [address], [place] tel:[phone] [facility] No Information May-2 6-201 0 Doisy Edaye. [address] [facility] [address] , [address], [place], [facility], [place]. tel:[phone] [facility], [address] [place] [address] [address], [place], [place], [address], [place] tel:[phone] [facility] No Information May-1 2-201 0 Doisy Edaye. [address] [facility] [address] , [address], [place], [facility], [place]. tel:[phone] [facility], [address], [place], [place], [address], [place] tel:[phone] [facility] No Information May-0 4-201 0 Doisy Edaye. [address] [facility] [address] , [address], [place], [facility], [place]. tel:[phone] [facility], [address], [place], [place], [address], [place] tel:[phone] [facility] No Information Apr-1 9-201 0 Doisy Edaye. [address], [address], [place], [facility], [place]. tel:[phone] Office/outpat ient Visit, Est [facility], [address], [place], [place], [address], [place] tel:[phone] [facility] No Information Mar-1 5-201 0 Sharifa Cheung. [address] , [address], [place], [facility], . tel:[phone] Office/outpat ient Visit, Est [facility], [address], [place], [place], [address], [place] tel:[phone] [facility] No Information Oct-2 6-200 9 Sharifa Cheung. [address] , [address], [place], [facility], [place]. tel:[phone] Referring Provider: Jonatan Munoz, [address], [place], [facility]. tel:[phone] [facility], [address], [place], [place], [address], [place] tel:[phone] [facility] No Information Davon-2 4-200 9 Sharifa Cheung. [facility] , [address], [place], [facility], [place]. tel:[phone] Referring Provider: Jonatan Munoz, [address], [place], [facility]. tel:[phone] [facility], [address], [place], [place], [address], [place] tel:[phone] [facility] No Information Davon-2 2-200 9 Sharifa Cheung. [facility] , [address], [place], [facility], [place]. tel:[phone] Referring Provider: Jonatan Munoz, [address], [place], [facility]. tel:[phone] [facility], [address], [place], [place], [address], [place] tel:[phone] [facility] No Information 9-200 9 Sharifa Edaye. [address] [facility] [address] , [address], [place], [facility], . tel:[phone] Office/outpat ient Visit, [facility], [address] [place] [address] [address], [place], [place], [address], [place] tel:[phone] [facility] No Information Dec-2 3-200 8 Sharifa Edaye. [address] [facility] [address] , [address], [place], [facility], [place]. tel:[phone] Referring Provider: Jonatan Munoz, [address], [place], [facility]. tel:[phone] Office/outpat ient Visit, [facility], [address] [place] [address] [address], [place], [place], [address], [place] tel:[phone] [facility] No Information 8-200 8 Sharifa Cheung. [address] [facility] [address] , [address], [place], [facility], [place]. tel:[phone] [facility], [address], [place], [place], [address], [place] tel:[phone] [facility] No Information 2 1-200 8 Sharifa Cheung. [address] [facility] [address] , [address], [place], [facility], [place]. tel:[phone] [facility], [address] [place] [address] [address], [place], [place], [address], [place] tel:[phone] [facility] No Information Jun-3 0-200 8 Sharifa Cheung. [address] , [address], [place], [address], [place]. tel:[phone] Referring Provider: Jonatan Munoz, [address], [place], [facility]. tel:[phone] [facility], [address] [place] [address] [address], [place], [place], [address], [place] tel:[phone] [facility] No Information Jun-2 2-200 8 Sharifa Cheung. [address], [address], [place], [facility], [place]. tel:[phone] Referring Provider: Jonatan Munoz, [address], [place], [facility]. tel:[phone] Office/outpat ient Visit, [facility], [address], [place], [place], [address], [place] tel:[phone] [facility] No Information Nirav-0 9-200 8 Sharifa Cheung. [facility] [address], [address], [place], [facility], [place]. tel:[phone] Office/outpat ient Visit, [facility], [address], [place], [place], [address], [place] tel:[phone] [facility] No Information Oct-1 7-200 7 Sharifa Cheung. [address], [address], [place], [facility], [place]. tel:[phone] [facility], [address] [place] [address] [address], [place], [place], [address], [place] tel:[phone] [facility] No Information Leonardo-1 0-200 7 Sharifa Cheung. [address], [address], [place], [facility], [place]. tel:[phone] Referring Provider: Jonatan Munoz, [address], [place], [address]. tel:[phone] Office/outpat ient Visit, [facility], [address], [place], [place], [address], [place] tel:[phone] [facility] No Information 7 Sharifa Cheung. [address] [facility] , [address], [place], [address], [place]. tel:[phone] Referring Provider: Jonatan Munoz [facility] [address], [place], [address]. tel:[phone] Family History Family Member Type Diagnosis Age At Onset No Information Payers Payer name Insurance type Covered constitution party ID Authoriza tion(s) Medicare [facility] [id number] [place] [id number] Social History Type Description Quantity Date Captured [...]
--- OUTSIDE RECORDS SUMMARY | 2024-07-31 13:58 | XMS_ITS ---
Author Organization [facility] Address [address] [place], [place] [address] Care Team Providers Care Public Records Officer Name Role Phone FRANCISCO FUCHS Unavailable [phone] Christian Cardozo Unavailable Unavailable CARLYLE MARINO Unavailable [phone] REASON FOR VISIT *General care Medications Medication SIG (Take, Route, Frequency, Duration) Notes Start Date End Date Status ezetimibe 10 MG / simvastatin 10 MG Oral Tablet [Vytorin] ORAL ezetimibe 10 MG / simvastatin 10 MG Oral Tablet [Vytorin]Original Medicationezetimibe 10 MG / simvastatin 10 MG Oral Tablet [Vytorin] *Reorder from [employer] for eRx and Interaction Alerts* 10/28/2016 Unknown citalopram 10 MG Oral Tablet ORAL citalopram 10 MG Oral TabletOriginal Medicationcitalopram 10 MG Oral Tablet *Reorder from [employer] for eRx and Interaction Alerts* 10/28/2016 Unknown valsartan 40 MG Oral Tablet [Diovan] ORAL valsartan 40 MG Oral Tablet [Diovan]Original Medicationvalsartan 40 MG Oral Tablet [Diovan] *Reorder from [employer] for eRx and Interaction Alerts* 10/28/2016 Unknown metformin hydrochloride 500 MG Oral Tablet ORAL metformin hydrochloride 500 MG Oral TabletOriginal Medicationmetformin hydrochloride 500 MG Oral Tablet *Reorder from [employer] for eRx and Interaction Alerts* 10/28/2016 Unknown Encounters Encounter Location Date Provider Diagnosis [address] [id number] 01/18/2024 CARLYLE MARINO Other hammer toe(s) (acquired), right foot M20.41 ; Tinea unguium B35.1 ; Other hammer toe(s) (acquired), left foot M20.42 ; Pain in right toe(s) M79.674 ; Pain in left toe(s) M79.675 ; Unspecified atherosclerosis of [place] arteries of extremities, bilateral legs I70.203 and [...] (ICD-10 - M79.675) 01/18/2024 Unspecified atherosclerosis of [place] arteries of extremities, bilateral legs (ICD-10 - [...] OTC and prescription treatments. Unspecified atherosclerosis of [place] arteries of extremities, bilateral legs Patient educated [...] Up: 3 Months, Reason: Provider Name:LIN VARGAS, 08/22/2024 02:30:00 PM, [address] [place] [address], [id number], Progress Notes * MELISSA VALERIO EDOB:[birth year] (83 yo F)Acc No.[id number]:01/18/2024 Patient: MELISSA STEWART Provider: José Manuel MARINO :1940 A ge:83 Y S ex:Female Date:01/18/2024 Address:[address] [place], [place] [address] Subjective: * Chief Complaints: * 1 . *General care. * HPI: H PI: General care P atient presents to the office for diabetic foot care. Patient states that their nails are thickened, elongated and painful. Patient states that it is aggravated by shoe gear. Onset is gradual., Patient is taking prescription blood thinners., Date last seen by Dr. Cardozo was 12/2023., Initials [facility]. * ROS: G eneral / Constitutional: Patient denies w eakness. R espiratory: Patient denies c hronic cough, shortness of breath, sputum production. C ardiovascular: Patient denies c hest pain, history of [place], irregular heartbeat. M usculoskeletal: Patient complains of [...] MG Oral Tablet *Reorder from [facility] for eRx and Interaction Alerts*, Unknown ezetimibe 10 MG / simvastatin 10 MG Oral Tablet [Vytorin] ORAL , Notes to Pharmacist: ezetimibe 10 MG / simvastatin 10 MG Oral Tablet [Vytorin]Original Medicationezetimibe 10 MG / simvastatin 10 MG Oral Tablet [Vytorin] *Reorder from [facility] for eRx and Interaction Alerts*, Unknown metformin hydrochloride 500 MG Oral Tablet ORAL , Notes to Pharmacist: metformin hydrochloride 500 MG Oral TabletOriginal Medicationmetformin hydrochloride 500 MG Oral Tablet *Reorder from [facility] for eRx and Interaction Alerts*, Unknown valsartan 40 MG Oral Tablet [Diovan] ORAL , Notes to Pharmacist: valsartan 40 MG Oral Tablet [Diovan]Original Medicationvalsartan 40 MG Oral Tablet [Diovan] *Reorder from [facility] for eRx and Interaction Alerts* Objective: * [...] M79.675 6 . U nspecified atherosclerosis of [place] arteries of extremities, bilateral legs - I70.203 [...] were emphasized. 3. U nspecified atherosclerosis of [place] arteries of extremities, bilateral legs Notes: Patient [...] Months * Billing Information: * Visit Code: 18277 Office Visit, Est Pt., Level 3. * Procedure Codes: * NURSE Sign off status: Completed true * Provider: José Manuel MARINO Date: 1 Generated for Jacquie lord/Robert/Rhiannon on: 0 07/31/2024 [...]
--- OUTSIDE RECORDS SUMMARY | 2024-07-31 13:58 | XMS_ITS | Patient Health Record ---
Author Organization [facility] Address [address] [place], [place] [address] Care Team Providers Care Epic Director Name Role Phone FRANCSICO FUCHS Unavailable [phone] Christian Cardozo Unavailable Unavailable CARLYLE MARINO Unavailable [phone] Allergies No Known Allergies Reason For Referral No Information Medications Medication SIG (Take, Route, Frequency, Duration) Notes Start Date End Date Status citalopram 10 MG Oral Tablet ORAL citalopram 10 MG Oral TabletOriginal Medicationcitalopram 10 MG Oral Tablet *Reorder from M[facility] Bell for eRx and Interaction Alerts* 10/28/2016 Unknown valsartan 40 MG Oral Tablet [Diovan] ORAL valsartan 40 MG Oral Tablet [Diovan]Original Medicationvalsartan 40 MG Oral Tablet [Diovan] *Reorder from [facility] for eRx and Interaction Alerts* 10/28/2016 Unknown metformin hydrochloride 500 MG Oral Tablet ORAL metformin hydrochloride 500 MG Oral TabletOriginal Medicationmetformin hydrochloride 500 MG Oral Tablet *Reorder from [facility] for eRx and Interaction Alerts* 10/28/2016 Unknown ezetimibe 10 MG / simvastatin 10 MG Oral Tablet [Vytorin] ORAL ezetimibe 10 MG / simvastatin 10 MG Oral Tablet [Vytorin]Original Medicationezetimibe 10 MG / simvastatin 10 MG Oral Tablet [Vytorin] *Reorder from M[facility] Bell for eRx and Interaction Alerts* 10/28/2016 Unknown Immunizations Vaccine Route Administration Date Status Comme nts Influenza, high dose seasonal Unknown 01/02/2023 Admini stered Vital Signs Height-cm 165.1 cm 08/31/2023 Weight-kg 81.19 kg 08/31/2023 Height 65 in 08/31/2023 Weight 179 lbs 08/31/2023 BMI 29.78 kg/m2 08/31/2023 Encounters Encounter Location Date Provider Diagnosis [address] [id number] 05/30/2024 FRANCISCO FUCHS Tinea unguium B35.1 ; Pain in right toe(s) M79.674 ; Pain in left toe(s) M79.675 ; Atherosclerosis of [place] arteries of extremities with intermittent claudication, bilateral legs I70.213 and Type 2 diabetes mellitus with other circulatory complications E11.[address] [id number] 08/31/2023 CARLYLE MARINO Other hammer toe(s) (acquired), right foot M20.41 ; Tinea unguium B35.1 ; Other hammer toe(s) (acquired), left foot M20.42 ; Pain in right toe(s) M79.674 ; Pain in left toe(s) M79.675 ; Unspecified atherosclerosis of [place] arteries of extremities, bilateral legs I70.203 and Type 2 diabetes mellitus with diabetic peripheral angiopathy without gangrene E11.51 [facility] [address] [place], [place] [id number] 11/16/2023 CARLYLE MARINO Other hammer toe(s) (acquired), right foot M20.41 ; Tinea unguium B35.1 ; Other hammer toe(s) (acquired), left foot M20.42 ; Pain in right toe(s) M79.674 ; Pain in left toe(s) M79.675 ; Unspecified atherosclerosis of [place] arteries of extremities, bilateral legs I70.203 and Type 2 diabetes mellitus with diabetic peripheral angiopathy without gangrene E11.[address] [id number] 01/18/2024 CARLYLE MARINO Other hammer toe(s) (acquired), right foot M20.41 ; Tinea unguium B35.1 ; Other hammer toe(s) (acquired), left foot M20.42 ; Pain in right toe(s) M79.674 ; Pain in left toe(s) M79.675 ; Unspecified atherosclerosis of [place] arteries of extremities, bilateral legs I70.203 and Type 2 diabetes mellitus with diabetic peripheral angiopathy without gangrene E11.51 [facility] [address], [place] [id number] 03/28/2024 FRANCISCO FUCHS Tinea unguium B35.1 ; Pain in right toe(s) M79.674 ; Pain in left toe(s) M79.675 ; Atherosclerosis of [place] arteries of extremities with intermittent claudication, bilateral [...] toe(s) (ICD-10 - M79.675) 03/28/2024 Atherosclerosis of [place] arteries of extremities with intermittent claudication, bilateral legs (ICD-10 - I70.213) 05/30/2024 Atherosclerosis of [place] arteries of extremities with intermittent claudication, bilateral legs (ICD-10 - I70.213) 01/18/2024 Pain in left toe(s) (ICD-10 - M79.675) 11/16/2023 Pain in left toe(s) (ICD-10 - M79.675) 08/31/2023 Pain in left toe(s) (ICD-10 - M79.675) 08/31/2023 Unspecified atherosclerosis of [place] arteries of extremities, bilateral legs (ICD-10 - I70.203) Patient educated on risks and aggravating factors of PVD, including conservative treatment options such as a diet and exercise regimen to aid in slowing progression of vascular disease 11/16/2023 Unspecified atherosclerosis of [place] arteries of extremities, bilateral legs (ICD-10 - I70.203) Patient educated on risks and aggravating factors of PVD, including conservative treatment options such as a diet and exercise regimen to aid in slowing progression of vascular disease 01/18/2024 Unspecified atherosclerosis of [place] arteries of extremities, bilateral legs (ICD-10 - [...] Treatment Next Appt Details Provider Name:LIN VARGAS, 08/22/2024 02:30:00 PM, [address] [place] [address], [id number], Insurance Providers Payer Name Payer Address Payer Phone Subscriber Number Group Number Insured Name Patient Relationship to Insured Coverage Start Date Coverage End Date [address] [address] [id number] MELISSA VALERIO Self - patient is the insured
--- OUTSIDE RECORDS SUMMARY | 2024-07-31 13:58 | XMS_ITS | Encounter Summary ---
Author Organization [facility] Address [facility] [place] [address] Care Team Providers Care Car Mechanic Helper Name Role Phone Bianca Silverman Primary Care Provider [phone] Christian Cardozo MD Primary Care Provider [phone] Encounter Details Date Type Department Care Team (Late st Contact Info) Description 09/01/2018 Abstract [facility] [address] [place] [address] , Generic Conversion, Social History Tobacco Use Types Packs/Day Years Used Date Smoking Tobacco: Never Assessed Comments Unknown Sex and Gender Information Value Date Recorded Sex Assigned at Female 05/03/2024 2:10 PM ANALYTICS ASSOCIATE Legal Sex Female 5:08 PM CDT Gender Identity Not on file Sexual Orientation Not on file documented as of this encounter Plan of Treatment Not on file documented as of this encounter Visit Diagnoses Not on filedocumented in this encounter Care Teams Car Mechanic Helper Relationship Specialty Start Date End Date Bianca Silverman FNP [address] [place] [address] PCP - General NURSE PRACTITIONER 02/22/19 03/13/24 Christian Cardozo MD [address] [facility] [address] [place] [address] PCP - General FAMILY PRACTICE 03/14/24 documented as of this encounter
--- OUTSIDE RECORDS SUMMARY | 2024-07-31 13:59 | XMS_ITS | Encounter Summary ---
Author Organization [facility] Address [facility] [place] [address] Care Team Providers Care Sausage Wrapper Name Role Phone Bianca Silverman Primary Care Provider [phone] Christian Cardozo MD Primary Care Provider [phone] Encounter Details Date Type Department Care Team (Latest Contact Info) Description 01/30/2018 Abstract [facility] , Tanner Souza MD Social History Tobacco Use Types Packs/Day Years Used Date Smoking Tobacco: Never Assessed Comments Unknown Sex and Gender Information Value Date Recorded Sex Assigned at Female 05/03/2024 2:10 PM MAP AND CHART MOUNTER Legal Sex Female 5:08 PM CDT Gender Identity Not on file Sexual Orientation Not on file documented as of this encounter Plan of Treatment Not on file documented as of this encounter Visit Diagnoses Not on filedocumented in this encounter Care Teams Sausage Wrapper Relationship Specialty Start Date End Date Bianca Silverman FNP [facility] [place] [address] PCP - General NURSE PRACTITIONER 02/22/19 03/13/24 Christian Cardozo MD [address] [facility] [address] [place] [address] PCP - General FAMILY PRACTICE 03/14/24 documented as of this encounter
--- OUTSIDE RECORDS SUMMARY | 2024-07-31 13:59 | XMS_ITS | Encounter Summary ---
Author Organization [facility] Address [address] [place] [address] Care Team Providers Care Brass Bobbin Winder Name Role Phone Christian Cardozo MD Primary Care Provider Encounter Details Date Type Department Care Team (Late st Contact Info) Description 10/02/2023 Orders Only [facility] [address] [place] [address] Scanning, Provider Social History Tobacco Use Types Packs/Day Years Used Date Smoking Tobacco: Never Smokeless Tobacco: Never Alcohol Use Standard Drinks/Week Comments No 0 (1 standard drink = 0.6 oz pur e alcohol) Comments Unknown Sex and Gender Information Value Date Recorded Sex Assigned at Not on file Legal Sex Female 1:11 PM CANDY CUTTER HAND Gender Identity Not on file Sexual Orientation [...] on filedocumented in this encounter Care Teams Brass Bobbin Winder Relationship Specialty Start Date End Date Christian Cardozo MD [address] [facility] [address] [place] [address] PCP - General Family Medicine 06/14/18 documented as of this encounter
--- OUTSIDE RECORDS SUMMARY | 2024-07-31 13:59 | XMS_ITS | Clinical Summary ---
Author Organization [facility] Address [address] [address] Phone Care Team Providers Care Bessemer Converter Operator Name Role Phone Unavailable Primary Care Provider [...] Comments Blood Pressure 152/80 04/23/2018 12:01 AM LIBRARY PARAPROFESSIONAL Pulse - - Temperature 36.7 C (98.1 F) 04/23/2018 12:01 AM LIBRARY PARAPROFESSIONAL Respiratory Rate - - Oxygen Saturation - - Inhaled Oxygen Concentration - - Weight 79.4 kg (175 lb) 04/23/2018 12:01 AM LIBRARY PARAPROFESSIONAL Height 162.6 cm (5' 4 ) 04/23/2018 12:01 AM LIBRARY PARAPROFESSIONAL Body Mass Index 30.04 04/23/2018 12:01 AM LIBRARY PARAPROFESSIONAL Plan of Treatment Not on file
--- OUTSIDE RECORDS SUMMARY | 2024-07-31 13:59 | XMS_ITS | Encounter Summary ---
Author Organization [facility] Address [facility] [place] [address] Care Team Providers Care Physician Executive Name Role Phone Bianca Silverman Primary Care Provider [phone] Christian Cardozo MD Primary Care Provider [phone] Encounter Details Date Type Department Care Team (Late st Contact Info) Description 01/27/2014 Abstract [facility] CONVERSION [address] [place] [address] , Generic ConversionMD Social History Tobacco Use Types Packs/Day Years Used Date Smoking Tobacco: Never Assessed Comments Unknown Sex and Gender Information Value Date Recorded Sex Assigned at Female 05/03/2024 2:10 PM EXPLORATION ENGINEER Legal Sex Female 5:08 PM CDT Gender Identity Not on file Sexual Orientation Not on file documented as of this encounter Plan of Treatment Not on file documented as of this encounter Visit Diagnoses Not on filedocumented in this encounter Care Teams Physician Executive Relationship Specialty Start Date End Date Bianca Silverman FNP [facility] [place] [address] PCP - General NURSE PRACTITIONER 02/22/19 03/13/24 Christian Cardozo MD [address] [facility] [address] [place] [address] PCP - General FAMILY PRACTICE 03/14/24 documented as of this encounter
--- OUTSIDE RECORDS SUMMARY | 2024-07-31 13:59 | XMS_ITS | Clinical Summary ---
Author Organization [facility] Address [address] [place] [address] Care Team Providers Care Jetting Machine Operator Name Role Phone Christian Cardozo MD Primary Care Provider [phone] Allergies No known active allergies Medications amLODIPine [...] - 06/11/2024 11:59 PM CDT Hospital Encounter [facility] [address] [place] [address] Krissy Dumont MD Discharge Disposition: Home or Self Care (Routine Discharge) 06/11/2024 10:31 AM CDT Hospital Encounter [facility] [address] [place] [address] Christian Cardozo MD Discharge Disposition: Home or Self Care (Routine Discharge) 06/11/2024 10:29 AM CDT - 06/11/2024 10:30 AM CDT Hospital Encounter [facility] [address] [place] [address] Twin Brar MD Discharge Disposition: Home or Self Care (Routine Discharge) 06/11/2024 Orders Only [facility] [address] [place] [address] Krissy Dumont MD 06/11/2024 Travel 05/03/2024 2:15 PM DRY CLIPPER TENDER - 05/03/2024 11:59 PM DRY CLIPPER TENDER Hospital Encounter [facility] [address] [place] [address] Twin Brar MD Discharge Disposition: Home or Self Care (Routine Discharge) 05/03/2024 Orders Only [facility] [address] [place] [address] Twin Brar MD 05/03/2024 Travel from Last [...] Sex Assigned at Female 05/03/2024 2:10 PM DRY CLIPPER TENDER Legal Sex Female 5:08 PM CDT Gender [...] diabetes mellitus with ESRD (end-stage renal disease) ([facility]) Inadequately controlled diabetes mellitus ([facility]) Encounter for long-term (current) use of insulin ([facility]) Other specified abnormal findings of blood chemistry Chronic kidney disease, unspecified VITAMIN D, 25 OH Routine 06/11/2024 10:3 9 AM CDT Type 2 diabetes mellitus with ESRD (end-stage renal disease) ([facility]) Inadequately controlled diabetes mellitus ([facility]) Encounter for long-term (current) use of insulin ([facility]) Other specified abnormal findings of blood chemistry Chronic kidney disease, unspecified VITAMIN B-12 Routine 06/11/2024 10:39 AM CDT Type 2 diabetes mellitus with ESRD (end-stage renal disease) ([facility]) Inadequately controlled diabetes mellitus ([facility]) Encounter for long-term (current) use of insulin ([facility]) Other specified abnormal findings of blood chemistry Chronic kidney disease, unspecified LIPID PANEL Routine 06/11/2024 10:39 AM CDT Type 2 diabetes mellitus with ESRD (end-stage renal disease) ([facility]) Inadequately controlled diabetes mellitus ([facility]) Encounter for long-term (current) use of insulin ([facility]) Other specified abnormal findings of blood chemistry Chronic kidney disease, unspecified PROTHROMBIN TIME, VENOUS Routine 06/11/2024 10:39 AM CDT Atrial fibrillation with RVR ([facility]) PROTHROMBIN TIME, VENOUS Routine 05/03/2024 2:33 PM DRY CLIPPER TENDER Atrial fibrillation with RVR ([facility]) HEMOGLOBIN, GLYCOSYLATED Routine 05/09/2012 11:40 AM DRY CLIPPER TENDER from Last 3 Months or Most Recently Relevant to Health Maintenance Results * (ABNORMAL) MICROALBUMIN CREATININE RATIO (MICROALBUMIN/ALBUMIN) (06/11/2024 10:50 AM CDT) CREATININE (U) 90.5 28 - 217 MG/DL 06/11/2024 11:28 AM CDT [facility] MICROALBUMIN (U) 75.9(H) <2.0 mg/dL 06/11/2024 11:28 AM CDT [facility] ALBUMIN/CREAT RATIO 838.8(H) <30.0 MG/G 06/11/2024 11:28 AM CDT [facility] URINE SPECIMEN / Unknown 06/11/2024 10:50 AM CDT Krissy Dumont MD URINE ORDERABLES Final Result [facility] [address] [place] [address], [place] [phone] * (ABNORMAL) VITAMIN B-12 (06/11/2024 10:39 AM CDT) VITAMIN B12 S/P/B 1,501(H) 193 - 986 PG/ML 06/11/2024 11:29 AM CDT [facility] 06/11/2024 10:3 9 AM CDT Krissy Dumont MD LABORATORY Final Result [facility] [address] [place] [address], [place] [phone] * (ABNORMAL) PROTIME/INR, VENOUS (06/11/2024 10:39 AM CDT) Only the most recent of2 resultswithin the time period is included. PROTIME 28.2(H) 9.1 - 12.4 SEC 06/11/2024 11:09 AM CDT [facility] INR 2.5 06/11/2024 11:09 AM CDT [facility] Comment: Recommend INR ranges for Oral Anticoagulant Therapy: Mechanical Cardiac Values 2.5-3.5 All others indication 2.0-3.0 06/11/2024 10:3 9 AM CDT us Twin Brar MD LABORATORY Final Res ult [facility] [address] [place] [address], * (ABNORMAL) LIPID PANEL (06/11/2024 10:39 AM CDT) CHOLESTEROL 162 <200.0 MG/DL 06/11/2024 11:04 AM CDT [facility] TRIGLYCERIDES 173(H) <150 MG/DL 06/11/2024 11:04 AM T [facility] HDL 44 >40.0 MG/DL 06/11/2024 11:04 AM T [facility] LDL (CALCULATED) 83 <100 MG/DL 06/11/2024 11:04 AM T [facility] NON HDL CHOLESTEROL 118 <130 MG/DL 06/11/2024 11:04 AM T [facility] CHOL/HDL RATIO 3.7 0.0 - 4.5 06/11/2024 11:04 AM T [facility] VLDL CALCULATION 35 5 - 55 MG/DL 06/11/2024 11:04 AM T [facility] LIPID INTERPRETATION 06/11/2024 11:04 AM T [facility] Comment: NIH CONCENSUS REPORT RECOMMENDATIONS: [...] MD LABORATORY Final Result Performing Organization Address [facility]/ZIP Co de Phone Number [facility] [address] [place] [address], [place] [phone] * (ABNORMAL) VITAMIN D, 25 OH (06/11/2024 10:39 AM CDT) VITAMIN D 25 HYDROXY S/P/B 25(L) 30 - 100 NG/ML 06/11/2024 11:42 AM CDT [facility] Comment: INTERPRETATION DEFICIENT <20 INSUFFICIENT 20-29 SUFFICIENT 30-100 06/11/2024 10:3 9 AM CDT Krissy Dumont MD LABORATORY Final Result Performing Organization Address [facility] Co de Phone Number [facility] [address] [place] [address], [place] [phone] * (ABNORMAL) HEMOGLOBIN, GLYCOSYLATED (05/09/2012 11:40 AM DRY CLIPPER TENDER) Pathologist [facility] HGB A1C 6.9 INCREASED RISK OF DIABETES <5.7% NON-DIABETES 5.7-6.4% INCREASED RISK FOR FUTURE DIABETES > OR = 6.5 CONSISTENT WITH DIABETES STANDARDS OF MEDICAL CARE IN DIABETES-2010 DIABETES CARE, 33(SUPP 1): S1-S61,2010 (H) <5.7 % [facility] TO EPIC CONVERSION 05/09/2012 11:4 0 AM DRY CLIPPER TENDER 05/09/2012 11:40 AM DRY CLIPPER TENDER Narrative [facility] TO EPIC CONVERSION - 05/09/2012 12:21 PM DRY CLIPPER TENDER Result Communication: No patient communication needed at this time Ahsan Cash MD LABORATORY Final Result Performing Organization Address City/[facility]/ZIP Co de Phone Number [facility] TO EPIC CONVERSION from Last 3 Months or Most Recently Relevant to Health Maintenance Insurance [employer] Care Teams Jetting Machine Operator Relationship Specialty Start Date End Date Christian Cardozo MD [address] [place] [address] PCP - General FAMILY PRACTICE 03/14/24
--- OUTSIDE RECORDS SUMMARY | 2024-07-31 13:59 | XMS_ITS | Clinical Summary ---
Author Organization [facility] [address] Address [address] [place] [address] Care Team Providers Care Seo Intern Name Role Phone Christian Cardozo MD Primary [...] HFA,PROAIR HFA) 90 mcg/actuation inhaler as needed 05/15/19 21 Active furosemide (LASIX) 20 mg tablet TAKE 1 TABLET BY MOUTH ONCE DAILY IN THE MORNING 05/29/19 21 Active amLODIPine (NORVASC) 10 mg tablet Take 1 tablet (10 mg total) by mouth daily 06/10/19 21 Active lansoprazole (PREVACID) 15 mg capsule Take 1 capsule (15 mg total) by mouth daily Active FeroSuL 325 mg (65 mg iron) tablet Take 1 tablet (325 mg total) by mouth daily 04/07/19 22 Active spironolactone (ALDACTONE) 25 mg tablet Take 1 tablet (25 mg total) by mouth daily 06/21/19 22 Active metoprolol tartrate (LOPRESSOR) 25 mg immediate release tablet Take 1/2 (one-half) tablet by mouth twice daily 90 tablet 3 09/18/19 24 Active warfarin (COUMADIN) 2 mg tabletIndications:C hronic anticoagulation TAKE 2 TABLETS BY MOUTH ONCE DAILY ON MONDAY AND MONDAY, THEN TAKE 3 TABLETS ON ALL OTHER DAYS OR DIRECTED 76 tablet 07/02/19 25 Active atorvastatin (LIPITOR) 80 mg tablet Take 1 tablet (80 mg total) by mouth daily 06/24/19 25 Active hydrALAZINE (APRESOLINE) 50 mg tablet Take 1 tablet (50 mg total) by mouth 3 (three) times a day 05/31/19 25 Active atorvastatin (LIPITOR) 40 mg tablet Take 1 tablet (40 mg total) by mouth daily 025 Discontin ued(Alter beatriz therapy) hydrALAZINE (APRESOLINE) 25 mg tablet Take 1 tablet (25 mg total) by mouth 3 (three) times a day 07/25/19 24 025 Discontin ued(Alter beatriz therapy) Active Problems Problem Noted Date Diagnosed Date Hyperglycemia 05/10/2018 Delirium 05/10/2018 Atrial fibrillation with RVR 05/10/2018 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 05/07/2018 Overview (05/08/2018): Added automatically from request for surgery [id number] S/P CABG (coronary artery bypass graft) Type 2 diabetes mellitus with other specified co mplication Encounters Date Type Department Care Team Description 07/23/2024 11:30 AM CDT Office Visit [facility] Cardiology [address] [place] [address] Macey Espinosa NP NSTEMI (non-ST elevated myocardial infarction) (HCC) (Primary Dx); 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; Status post coronary angiogram; Chronic anticoagulation; Hospital discharge follow-up 07/22/2024 Orders Only [facility] Medical [facility] Cardiology [address] [facility] [address] [place] [phone] Odilia Brothers MD 07/19/2024 Orders Only [facility] Cardiology [address] [place] [address] [address] [place] [phone] Zhen Oliveira MD 06/17/2024 Anticoagulation Visit [facility] Cardiology [address] [place] [address] [address] [place] [phone] Elda Mullins RN 06/13/2024 Anticoagulation Visit [facility] Cardiology [address] [place] [address] [address] [place] [phone] Didi Wills, BEST 05/06/2024 Anticoagulation Visit [facility] Cardiology [address] [place] [address] [address] [place] [phone] Didi Wills, BEST 05/03/2024 Orders Only [facility] Health Information Management [address] [place], [place] [phone] Twin Brar MD from Last 3 Months Surgical History Surgery [...] on file Legal Sex Female 1:11 PM YARD MANAGER Gender Identity Not on file Sexual [...] AM CDT EGFR STAT 05/16/2018 9:14 AM YARD MANAGER HEMOGLOBIN A1C Routine 05/07/2018 7:28 PM YARD MANAGER from Last 3 Months or Most [...] F inal Result * (ABNORMAL) Protime-INR (06/11/2024) Pathologist [facility] INR 2.50(A) 0.90 - 1.10 EXTERNAL LAB Blood Result [facility] Historical Provider MD LAB BLOOD ORDERABLES Shelley l Result Performing Organization Address [facility]/ZIP Co de Phone Number EXTERNAL LAB * SCAN - LABS (05/03/2024) Result [facility] Twin Brar MD Final Re sult * (ABNORMAL) Protime-INR (05/03/2024) Pathologist [facility] INR 2.10(A) 0.90 - 1.10 EXTERNAL LAB Blood Result [facility] Provider MD LAB BLOOD ORDERABLES Shelley l Result Performing Organization Address [facility] Co de Phone Number EXTERNAL LAB * Lipid panel (01/08/2024 8:58 AM CDT) [facility] SCRIBED Cholesterol, Total 150 <200 EXTERNAL LAB SCRIBED HDL 39 >40 EXTERNAL LAB SCRIBED LDL 63 <100 EXTERNAL LAB SCRIBED Triglycerides 242 <150 EXTERNAL LAB Blood Result [facility] Provider MD LAB BLOOD ORDERABLES Edit ed Result - Final Performing Organization Address [facility] Co de Phone Number EXTERNAL LAB * eGFR (05/16/2018 9:14 AM YARD MANAGER) Pathologist [facility] eGFR 49 mL/min/1.7 3 m2 JACOB SILVER Comment: Interpretive Data Reference Interval Normal >/= 90 mL/min/1.73m2 Mildly decreased* 60 - 89 mL/min/1.73m2 Mildly to moderately decreased 45 - 59 mL/min/1.73m2 Moderately to severely decreased 30 - 44 mL/min/1.73m2 Severely decreased 15 - 29 mL/min/1.73m2 Kidney Failure < 15 mL/min/1.73m2 *Relative to young adult level If -Cambodian multiply value by 1.16. Estimated glomerular filtration [...] 2015. Blood specimen (specimen) 05/16/2018 9:14 AM YARD MANAGER 05/16/2018 9:16 AM YARD MANAGER Narrative JACOB - 05/16/2018 9:47 AM YARD MANAGER us Pari Candelario NP LAB BLOOD ORDERABLES Shelley l Result Performing Organization Address [facility] Co de Phone Number [facility] [address] [place] [address] * (ABNORMAL) Hemoglobin A1c (05/07/2018 7:28 PM YARD MANAGER) Hgb A1C 9.0(H) 4.0 - 5.6 % [facility] Estimated Average Glucose 212 mg/dL [facility] Comment: The ADA recommends reporting an estimated Average Glucose (eAG) with all Hemoglobin A1c results using the equation derived from a study of 507 normal and diabetic adults. Minority populations were underrepresented and children were not included. (Diabetes Care 31:6892-5978, 2008). The eAG is not equivalent to a fasting glucose. Blood specimen (specimen) 05/07/2018 7:28 PM YARD MANAGER 05/07/2018 8:02 PM YARD MANAGER Narrative [facility] - 05/07/2018 8:18 PM YARD MANAGER us Luke Magana MD LAB BLOOD ORDERABLES Final R esult Performing Organization Address [facility] Co de Phone Number [facility] [address] [place], [place] [id number] from Last 3 Months or Most Recently Relevant to Health Maintenance Insurance MEDICARE [facility] MEDICARE [facility] HUMANA CHOICE MEDICARE PPO Advance Directives For more information, please contact: [phone] * Full Code (Latest Code Status on File) Date Activated Date Inactivated Comments 05/18/2018 7:34 PM * Full Code Date Activated Date Inactivated Comments 05/08/2018 3:11 PM 05/16/2018 5:35 PM Care Teams Seo Intern Relationship Specialty Start Date End Date Christian Cardozo MD [address] [facility] [address] [place] [address] PCP - General Family Medicine 06/14/18
--- OUTSIDE RECORDS SUMMARY | 2024-07-31 13:59 | XMS_ITS | Referral Summary ---
Author Organization [place] [address] [address] [facility] [address] [place] [address] Care Team Providers Care Linux Unix Administrator Name Role Phone Christian Cardozo MD Primary Care Provider Encounters Date Type Department Care Team Description 07/23/2024 11:30 AM CDT Office Visit [facility] Medical [facility] Cardiology [address] [place] [address] [address] [place] [phone] Macey Espinosa NP NSTEMI (non-ST elevated myocardial infarction) (HCC) (Primary Dx); Coronary artery disease of kokhan[place] artery of [place] heart with stable angina pectoris; Status post coronary angiogram; Chronic anticoagulation; Hospital discharge follow-up 07/22/2024 Orders Only [facility] Medical [facility] Cardiology [address] [place] [address] [address] [place] [phone] Odilia Brothers MD 07/19/2024 Orders Only [facility] Cardiology [address] [place] [address] [address] [place] [phone] Zhen Oliveira MD 06/17/2024 Anticoagulation Visit [facility] Cardiology [address] [place] [address] [address] [place] [phone] Elda Mullins, BEST 06/13/2024 Anticoagulation Visit [facility] Cardiology [address] [place] [address] [address] [place] [phone] Didi Wills RN 05/06/2024 Anticoagulation Visit [facility] Cardiology [address] [place] [phone] Didi Wills RN 05/03/2024 Orders Only [facility] Health Information Management [address] [place] [address] Twin Brar MD from Last 3 Months Allergies No known [...] artery disease of n ative artery of kokhanok heart with stable angina pectoris 05/07/2018 Overview (05/08/2018): Added automatically from request for surgery [id number] S/P CABG (coronary artery bypass graft) Type [...] on file Legal Sex Female 1:11 PM TECHNICAL MAINTENANCE TECHNICIAN Gender Identity Not on file Sexual Orientation [...] AM CDT EGFR STAT 05/16/2018 9:14 AM TECHNICAL MAINTENANCE TECHNICIAN HEMOGLOBIN A1C Routine 05/07/2018 7:28 PM TECHNICAL MAINTENANCE TECHNICIAN from Last 3 Months or Most Recently [...] AM CDT) Anatomical Region Laterality Modality Other Result [facility] Zhen Oliveira MD CV CARDIAC SERVICES PROCEDURES F inal Result * (ABNORMAL) Protime-INR (06/11/2024) INR 2.50(A) 0.90 - 1.10 EXTERNAL LAB Blood Result [facility] Historical Provider LAB BLOOD ORDERABLES Shelley l Result EXTERNAL LAB * SCAN - LABS (05/03/2024) Twin Brar MD Final Re sult * (ABNORMAL) Protime-INR (05/03/2024) INR 2.10(A) 0.90 - 1.10 EXTERNAL LAB Blood Result [facility] Historical Provider LAB BLOOD ORDERABLES Shelley l Result EXTERNAL LAB * Lipid panel (01/08/2024 8:58 AM CDT) SCRIBED Cholesterol, Total 150 <200 EXTERNAL LAB SCRIBED HDL 39 >40 EXTERNAL LAB SCRIBED LDL 63 <100 EXTERNAL LAB SCRIBED Triglycerides 242 <150 EXTERNAL LAB Blood Historical Provider LAB BLOOD ORDERABLES Edit ed Result - Final EXTERNAL LAB * eGFR (05/16/2018 9:14 AM TECHNICAL MAINTENANCE TECHNICIAN) eGFR 49 mL/min/1.7 3 m2 JACOB SILVER Comment: Interpretive Data Reference Interval Normal >/= 90 mL/min/1.73m2 Mildly decreased* 60 - 89 mL/min/1.73m2 Mildly to moderately decreased 45 - 59 mL/min/1.73m2 Moderately to severely decreased 30 - 44 mL/min/1.73m2 Severely decreased 15 - 29 mL/min/1.73m2 Kidney Failure < 15 mL/min/1.73m2 *Relative to young adult level If -Cuban multiply value by 1.16. Estimated glomerular filtration [...] 2015. Blood specimen (specimen) 05/16/2018 9:14 AM TECHNICAL MAINTENANCE TECHNICIAN 05/16/2018 9:16 AM TECHNICAL MAINTENANCE TECHNICIAN Narrative JACOB - 05/16/2018 9:47 AM TECHNICAL MAINTENANCE TECHNICIAN Pari Candelario GOLF COURSE EQUIPMENT OPERATOR LAB BLOOD ORDERABLES Shelley l Result [facility] [address] Department [place] [address] * (ABNORMAL) Hemoglobin A1c (05/07/2018 7:28 PM TECHNICAL MAINTENANCE TECHNICIAN) Hgb A1C 9.0(H) 4.0 - 5.6 % JACOB SILVER Estimated Average Glucose 212 mg/dL [facility] SILVER Comment: The ADA recommends reporting an estimated Average Glucose (eAG) with all Hemoglobin A1c results using the equation derived from a study of 507 normal and diabetic adults. Minority populations were underrepresented and children were not included. (Diabetes Care 31:2203-0157, 2008). The eAG is not equivalent to a fasting glucose. Blood specimen (specimen) 05/07/2018 7:28 PM TECHNICAL MAINTENANCE TECHNICIAN 05/07/2018 8:02 PM TECHNICAL MAINTENANCE TECHNICIAN Narrative JACOB SILVER - 05/07/2018 8:18 PM TECHNICAL MAINTENANCE TECHNICIAN Luke Magana MD LAB BLOOD ORDERABLES Final R esult JACOB [address] Department [place] [address] from Last 3 Months or Most Recently Relevant to Health Maintenance Insurance MEDICARE [facility] MEDICARE [facility] HUMANA CHOICE MEDICARE PPO Advance Directives For more information, please contact: [phone] * Full Code (Latest Code Status on File) Date Activated Date Inactivated Comments 05/18/2018 7:34 PM * Full Code Date Activated Date Inactivated Comments 05/08/2018 3:11 PM 05/16/2018 5:35 PM Care Teams Linux Unix Administrator Relationship Specialty Start Date End Date Christian Cardozo MD [address] [facility] [address] [place] [address] PCP - General Family Medicine 06/14/18
--- OUTSIDE RECORDS SUMMARY | 2024-07-31 15:05 | XMS_ITS | Clinical Summary ---
Author Organization [facility] Address [address], [place] [address] Phone Care Team Providers Care [employer] Assistant Manager Name Role Phone Unavailable Primary Care [...] Comments Blood Pressure 152/80 04/23/2018 12:01 AM FREIGHT BREAKER Pulse - - Temperature 36.7 C (98.1 F) 04/23/2018 12:01 AM FREIGHT BREAKER Respiratory Rate - - Oxygen Saturation - - Inhaled Oxygen Concentration - - Weight 79.4 kg (175 lb) 04/23/2018 12:01 AM FREIGHT BREAKER Height 162.6 cm (5' 4 ) 04/23/2018 12:01 AM FREIGHT BREAKER Body Mass Index 30.04 04/23/2018 12:01 AM FREIGHT BREAKER Plan of Treatment Not on file
--- OUTSIDE RECORDS SUMMARY | 2024-07-31 15:05 | XMS_ITS | Clinical Summary ---
Author Organization [facility] Address [address] [place] [address] Phone Care Team Providers Care Claims Director Name Role Phone Christian Cardozo MD [...] to complete this topic Insurance [address] [place] [address] MEDICARE C BCBS PPO MODE LARRY [id number] Care Teams Claims Director Relationship Specialty Start Date End Date Christian Cardozo MD [address] [place] [address] PCP - General Family Medicine 08/04/23
--- OUTSIDE RECORDS SUMMARY | 2024-07-31 15:05 | XMS_ITS | Encounter Summary ---
Author Organization [facility] Address [facility] [place] [address] Care Team Providers Care Early Childhood Associate Teacher Name Role Phone Bianca Silverman Primary Care Provider [phone] Christian Cardozo MD Primary Care Provider [phone] Encounter Details Date Type Department Care Team (Late st Contact Info) Description 01/27/2014 Abstract [facility] CONVERSION [address] [place] [address] , Generic ConversionMD Social History Tobacco Use Types Packs/Day Years Used Date Smoking Tobacco: Never Assessed Comments Unknown Sex and Gender Information Value Date Recorded Sex Assigned at Female 05/03/2024 2:10 PM BUILDING SPECIALIST Legal Sex Female 5:08 PM CDT Gender Identity Not on file Sexual Orientation Not on file documented as of this encounter Plan of Treatment Not on file documented as of this encounter Visit Diagnoses Not on filedocumented in this encounter Care Teams Early Childhood Associate Teacher Relationship Specialty Start Date End Date Bianca Silverman FNP [facility] [place] [address] PCP - General NURSE PRACTITIONER 02/22/19 03/13/24 Christian Cardozo MD [address] [facility] [address] [place] [address] PCP - General FAMILY PRACTICE 03/14/24 documented as of this encounter
--- OUTSIDE RECORDS SUMMARY | 2024-07-31 15:05 | XMS_ITS | Clinical Summary ---
Author Organization [facility] Address [address] [place] [address] Care Team Providers Care Supervisor Steffen House Name Role Phone Christian Cardozo MD Primary Care Provider [phone] Allergies No known active allergies Medications amLODIPine [...] - 06/11/2024 11:59 PM CDT Hospital Encounter [facility] [address] [place] [address] Krissy Dumont MD Discharge Disposition: Home or Self Care (Routine Discharge) 06/11/2024 10:31 AM CDT Hospital Encounter [facility] [address] [place] [address] Christian Cardozo MD Discharge Disposition: Home or Self Care (Routine Discharge) 06/11/2024 10:29 AM CDT - 06/11/2024 10:30 AM CDT Hospital Encounter [facility] [address] [place] [address] Twin Brar MD Discharge Disposition: Home or Self Care (Routine Discharge) 06/11/2024 Orders Only [facility] [address] [place] [address] Krissy Dumont MD 06/11/2024 Travel 05/03/2024 2:15 PM BOBBIN LOOSE END FINDER - 05/03/2024 11:59 PM BOBBIN LOOSE END FINDER Hospital Encounter [facility] [address] [place] [address] Twin Brar MD Discharge Disposition: Home or Self Care (Routine Discharge) 05/03/2024 Orders Only [facility] [address] [place] [address] Twin Brar MD 05/03/2024 Travel from Last [...] Sex Assigned at Female 05/03/2024 2:10 PM BOBBIN LOOSE END FINDER Legal Sex Female 5:08 PM CDT Gender [...] (end-stage renal disease) ([facility]) Inadequately controlled diabetes mellitus ([facility]) Encounter for long-term (current) use of insulin ([facility]) Other specified abnormal findings of blood chemistry Chronic kidney disease, unspecified VITAMIN D, 25 OH Routine 06/11/2024 10:3 9 AM CDT Type 2 diabetes mellitus with ESRD (end-stage renal disease) ([facility]) Inadequately controlled diabetes mellitus ([facility]) Encounter for long-term (current) use of insulin ([facility]) Other specified abnormal findings of blood chemistry Chronic kidney disease, unspecified VITAMIN B-12 Routine 06/11/2024 10:39 AM CDT Type 2 diabetes mellitus with ESRD (end-stage renal disease) ([facility]) Inadequately controlled diabetes mellitus ([facility]) Encounter for long-term (current) use of insulin ([facility]) Other specified abnormal findings of blood chemistry Chronic kidney disease, unspecified LIPID PANEL Routine 06/11/2024 10:39 AM CDT Type 2 diabetes mellitus with ESRD (end-stage renal disease) ([facility]) Inadequately controlled diabetes mellitus ([facility]) Encounter for long-term (current) use of insulin ([facility]) Other specified abnormal findings of blood chemistry Chronic kidney disease, unspecified PROTHROMBIN TIME, VENOUS Routine 06/11/2024 10:39 AM CDT Atrial fibrillation with RVR ([facility]) PROTHROMBIN TIME, VENOUS Routine 05/03/2024 2:33 PM BOBBIN LOOSE END FINDER Atrial fibrillation with RVR ([facility]) HEMOGLOBIN, GLYCOSYLATED Routine 05/09/2012 11:40 AM BOBBIN LOOSE END FINDER from Last 3 Months or Most Recently Relevant to Health Maintenance Results * (ABNORMAL) MICROALBUMIN CREATININE RATIO (MICROALBUMIN/ALBUMIN) (06/11/2024 10:50 AM CDT) CREATININE (U) 90.5 28 - 217 MG/DL 06/11/2024 11:28 AM CDT [facility] MICROALBUMIN (U) 75.9(H) <2.0 mg/dL 06/11/2024 11:28 AM CDT [facility] ALBUMIN/CREAT RATIO 838.8(H) <30.0 MG/G 06/11/2024 11:28 AM CDT [facility] URINE SPECIMEN / Unknown 06/11/2024 10:50 AM CDT Krissy Dumont MD URINE ORDERABLES Final Result [facility] [address] [place] [address], [place] [phone] * (ABNORMAL) VITAMIN B-12 (06/11/2024 10:39 AM CDT) VITAMIN B12 S/P/B 1,501(H) 193 - 986 PG/ML 06/11/2024 11:29 AM CDT [facility] 06/11/2024 10:3 9 AM CDT Krissy Dumont MD LABORATORY Final Result [facility] [address] [place] [address], [place] [phone] * (ABNORMAL) PROTIME/INR, VENOUS (06/11/2024 10:39 AM CDT) Only the most recent of2 resultswithin the time period is included. PROTIME 28.2(H) 9.1 - 12.4 SEC 06/11/2024 11:09 AM CDT [facility] INR 2.5 06/11/2024 11:09 AM CDT [facility] Comment: Recommend INR ranges for Oral Anticoagulant Therapy: Mechanical Cardiac Values 2.5-3.5 All others indication 2.0-3.0 06/11/2024 10:3 9 AM CDT us Twin Brar MD LABORATORY Final Res ult [facility] [address] [place] [address], * (ABNORMAL) LIPID PANEL (06/11/2024 10:39 AM CDT) CHOLESTEROL 162 <200.0 MG/DL 06/11/2024 11:04 AM CDT [facility] TRIGLYCERIDES 173(H) <150 MG/DL 06/11/2024 11:04 AM T [facility] HDL 44 >40.0 MG/DL 06/11/2024 11:04 AM T [facility] LDL (CALCULATED) 83 <100 MG/DL 06/11/2024 11:04 AM T [facility] NON HDL CHOLESTEROL 118 <130 MG/DL 06/11/2024 11:04 AM T [facility] CHOL/HDL RATIO 3.7 0.0 - 4.5 06/11/2024 11:04 AM T [facility] VLDL CALCULATION 35 5 - 55 MG/DL 06/11/2024 11:04 AM T [facility] LIPID INTERPRETATION 06/11/2024 11:04 AM T [facility] Comment: [facility] REPORT RECOMMENDATIONS: [...] MD LABORATORY Final Result Performing Organization Address [facility]/ZIP Co de Phone Number [facility] [address] [place] [address], [place] [phone] * (ABNORMAL) VITAMIN D, 25 OH (06/11/2024 10:39 AM CDT) VITAMIN D 25 HYDROXY S/P/B 25(L) 30 - 100 NG/ML 06/11/2024 11:42 AM CDT [facility] Comment: INTERPRETATION DEFICIENT <20 INSUFFICIENT 20-29 SUFFICIENT 30-100 06/11/2024 10:3 9 AM CDT Krissy Dumont MD LABORATORY Final Result Performing Organization Address [facility] Co de Phone Number [facility] [address] [place] [address], [place] [phone] * (ABNORMAL) HEMOGLOBIN, GLYCOSYLATED (05/09/2012 11:40 AM BOBBIN LOOSE END FINDER) Pathologist [facility] HGB A1C 6.9 INCREASED RISK OF DIABETES <5.7% NON-DIABETES 5.7-6.4% INCREASED RISK FOR FUTURE DIABETES > OR = 6.5 CONSISTENT WITH DIABETES STANDARDS OF MEDICAL CARE IN DIABETES-2010 DIABETES CARE, 33(SUPP 1): S1-S61,2010 (H) <5.7 % [facility] TO EPIC CONVERSION 05/09/2012 11:4 0 AM BOBBIN LOOSE END FINDER 05/09/2012 11:40 AM BOBBIN LOOSE END FINDER Narrative [facility] TO EPIC CONVERSION - 05/09/2012 12:21 PM BOBBIN LOOSE END FINDER Result Communication: No patient communication needed at this time Ahsan Cash MD LABORATORY Final Result Performing Organization Address City/[facility]/ZIP Co de Phone Number [facility] TO EPIC CONVERSION from Last 3 Months or Most Recently Relevant to Health Maintenance Insurance [employer]MA[employer] Care Teams Supervisor Steffen House Relationship Specialty Start Date End Date Christian Cardozo MD [address] [place] [address] PCP - General FAMILY PRACTICE 03/14/24
--- OUTSIDE RECORDS SUMMARY | 2024-07-31 15:05 | XMS_ITS | Referral Summary ---
Author Organization [place] [address] Address [address] [facility] [address] [place] [address] Care Team Providers Care Team Primary Care Physician Name Role Phone Christian Cardozo MD Primary Care Provider Encounters Date Type Department Care Team Description 07/23/2024 11:30 AM CDT Office Visit 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 Medical [facility] Cardiology [address] [place] [address] [address] [place] [phone] Odilia Brothers MD 07/19/2024 Orders Only [facility] Cardiology [address] [place] [address] [address] [place] [phone] Zhen Oliveira MD 06/17/2024 Anticoagulation Visit [facility] Cardiology [address] [place] [address] [address] [place] [phone] Elda Mullins, BEST 06/13/2024 Anticoagulation Visit [facility] Cardiology [address] [place] [address] [address] [place] [phone] Didi Wills RN 05/06/2024 Anticoagulation Visit [facility] Cardiology [address] [place] [phone] Didi Wills RN 05/03/2024 Orders Only [facility] Information Management [address] [place] [address] Twin Brar MD from Last 3 Months [...] artery disease of n ative artery of marshall heart with stable angina pectoris 05/07/2018 Overview (05/08/2018): Added automatically from request for surgery [id number] S/P CABG (coronary artery bypass graft) Type [...] on file Legal Sex Female 1:11 PM STREETCAR DISPATCHER Gender Identity Not on file Sexual Orientation [...] AM CDT EGFR STAT 05/16/2018 9:14 AM STREETCAR DISPATCHER HEMOGLOBIN A1C Routine 05/07/2018 7:28 PM STREETCAR DISPATCHER from Last 3 Months or Most Recently [...] CDT) Anatomical Region Laterality Modality Other Result [facility] Zhen Oliveira MD CV CARDIAC SERVICES PROCEDURES F inal Result * (ABNORMAL) Protime-INR (06/11/2024) INR 2.50(A) 0.90 - 1.10 EXTERNAL LAB Blood Result [facility] Historical Provider LAB BLOOD ORDERABLES Shelley l Result EXTERNAL LAB * SCAN - LABS (05/03/2024) Twin Brar MD Final Re sult * (ABNORMAL) Protime-INR (05/03/2024) INR 2.10(A) 0.90 - 1.10 EXTERNAL LAB Blood Result [facility] Historical Provider LAB BLOOD ORDERABLES Shelley l Result EXTERNAL LAB * Lipid panel (01/08/2024 8:58 AM CDT) SCRIBED Cholesterol, Total 150 <200 EXTERNAL LAB SCRIBED HDL 39 >40 EXTERNAL LAB SCRIBED LDL 63 <100 EXTERNAL LAB SCRIBED Triglycerides 242 <150 EXTERNAL LAB Blood Historical Provider LAB BLOOD ORDERABLES Edit ed Result - Final EXTERNAL LAB * eGFR (05/16/2018 9:14 AM STREETCAR DISPATCHER) eGFR 49 mL/min/1.7 3 m2 JACOB SILVER Comment: Interpretive Data Reference Interval Normal >/= 90 mL/min/1.73m2 Mildly decreased* 60 - 89 mL/min/1.73m2 Mildly to moderately decreased 45 - 59 mL/min/1.73m2 Moderately to severely decreased 30 - 44 mL/min/1.73m2 Severely decreased 15 - 29 mL/min/1.73m2 Kidney Failure < 15 mL/min/1.73m2 *Relative to young adult level If -Salvadorean multiply value by 1.16. Estimated glomerular filtration [...] 2015. Blood specimen (specimen) 05/16/2018 9:14 AM STREETCAR DISPATCHER 05/16/2018 9:16 AM STREETCAR DISPATCHER Narrative JACOB - 05/16/2018 9:47 AM STREETCAR DISPATCHER Pari Candelario FERMENTER WINE LAB BLOOD ORDERABLES Shelley l Result [facility] [address] Department [place] [address] * (ABNORMAL) Hemoglobin A1c (05/07/2018 7:28 PM STREETCAR DISPATCHER) Hgb A1C 9.0(H) 4.0 - 5.6 % JACOB SILVER Estimated Average Glucose 212 mg/dL JACOB SILVER Comment: The ADA recommends reporting an estimated Average Glucose (eAG) with all Hemoglobin A1c results using the equation derived from a study of 507 normal and diabetic adults. Minority populations were underrepresented and children were not included. (Diabetes Care 31:0710-1215, 2008). The eAG is not equivalent to a fasting glucose. Blood specimen (specimen) 05/07/2018 7:28 PM STREETCAR DISPATCHER 05/07/2018 8:02 PM STREETCAR DISPATCHER Narrative JACOB SILVER - 05/07/2018 8:18 PM STREETCAR DISPATCHER Luke Magana MD LAB BLOOD ORDERABLES Final R esult JACOB [id number] Department [place] [address] from Last 3 Months or Most Recently Relevant to Health Maintenance [place] [address] [facility] [employer] CHOICE MEDICARE PPO Advance Directives For more information, please contact: [phone] * Full Code (Latest Code Status on File) Date Activated Date Inactivated Comments 05/18/2018 7:34 PM * Full Code Date Activated Date Inactivated Comments 05/08/2018 3:11 PM 05/16/2018 5:35 PM Care Teams Team Primary Care Physician Relationship Specialty Start Date End Date Christian Cardozo MD [address] [facility] [address] [facility] [address] [place] [address] PCP - General Family Medicine 06/14/18
--- OUTSIDE RECORDS SUMMARY | 2024-07-31 15:05 | XMS_ITS | Encounter Summary ---
Author Organization [facility] Address [facility] [place] [address] Care Team Providers Care Brick Paving Checker Name Role Phone Bianca Silverman Primary Care Provider [phone] Christian Cardozo MD Primary Care Provider [phone] Encounter Details Date Type Department Care Team (Latest Contact Info) Description 01/30/2018 Abstract [facility] , [place] Souza MD Social History Tobacco Use Types Packs/Day Years Used Date Smoking Tobacco: Never Assessed Comments Unknown Sex and Gender Information Value Date Recorded Sex Assigned at Female 05/03/2024 2:10 PM NEEDLE PUNCH MACHINE OPERATOR Legal Sex Female 5:08 PM CDT Gender Identity Not on file Sexual Orientation Not on file documented as of this encounter Plan of Treatment Not on file documented as of this encounter Visit Diagnoses Not on filedocumented in this encounter Care Teams Brick Paving Checker Relationship Specialty Start Date End Date Bianca Silverman FNP [facility] [place] [address] PCP - General NURSE PRACTITIONER 02/22/19 03/13/24 Christian Cardozo MD [address] [facility] [address] [place] [address] PCP - General FAMILY PRACTICE 03/14/24 documented as of this encounter
--- OUTSIDE RECORDS SUMMARY | 2024-07-31 15:05 | XMS_ITS | Encounter Summary ---
Author Organization [facility] Address [address] [place] [address] Phone Care Team Providers Care Service Secretary Name Role Phone Christian Cardozo MD Primary Care Provider Encounter Details Date Type Department Care Team (Latest Contact Info) Description 08/04/2023 [facility]cribe [facility] [address] [place] [address] Dhiraj Witt MD [address] [facility] [address] [place] [address] Encounter for other specified special examinations (Primary [...] Primary documented in this encounter Care Teams Service Secretary Relationship Specialty Start Date End Date Christian Cardozo MD [address] [place] [address] PCP - General Family Medicine 08/04/23 documented as of this encounter
--- OUTSIDE RECORDS SUMMARY | 2024-07-31 15:05 | XMS_ITS | Continuity of Care Document ---
Author Organization [facility] Address [address] [place] [address] [address] [place] [phone] Phone Care Team Providers Care Online Media Buyer Name Role Phone Salcedo OD, Tod Unavailable [...] Copied on Encounter Office/outpat ient Visit, Est [facility], [address] [place] [address] [address], [place], [place], [id number], tel:[phone] [facility] No Information Oct-2 1-201 0 Salcedo OD Tod. [address] [facility] , [address], [place], [place], [facility], [place]. tel:[phone] [facility], [address] [place] [address] [address], [place], [place], [id number], tel:[phone] [facility] No Information Oct-1 5-201 0 Salcedo OD Tod. [address] [facility] [address], [place], [address], [place]. tel:[phone] [facility], [address] [place] [address] [address], [place], [place], [address], [place] tel:[phone] [facility] No Information Oct-0 6-201 0 Sharifa Cheung. [address] [facility] [address], [place], [address], [place]. tel:[phone] Referring Provider: Jonatan Munoz [address] [facility] [address], [place], [facility]. tel:[phone] [facility], [address] [place] [address] [address], [place], [place], [address], [place] tel:[phone] [facility] No Information Sep-2 7-201 0 Doisy Edaye. [address] [facility] , [address], [place], [facility], . tel:[phone] Referring Provider: Jonatan Munoz, [address], [place], [facility]. tel:[phone] Office/outpat ient Visit, Est [facility], [address], [place], [place], [address], [place] tel:[phone] [facility] No Information May-2 6-201 0 Doisy Edaye. [address] [facility] , [address], [place], [facility], [place]. tel:[phone] [facility], [address] [place] [address] [address], [place], [place], [address], [place] tel:[phone] [facility] No Information May-1 2-201 0 Doisy Edaye. [address] [facility] , [address], [place], [facility], [place]. tel:[phone] [facility], [address], [place], [place], [address], [place] tel:[phone] [facility] No Information May-0 4-201 0 Doisy Edaye. [address] [facility] , [address], [place], [facility], [place]. tel:[phone] [facility], [address], [place], [place], [address], [place] tel:[phone] [facility] No Information Apr-1 9-201 0 Doisy Edaye. [address] [facility] [address], [address], [place], [facility], [place]. tel:[phone] Office/outpat ient Visit, [facility], [address], [place], [place], [address], [place] tel:[phone] [facility] No Information Mar-1 5-201 0 Sharifa Cheung. [address] , [address], [place], [facility], . tel:[phone] Office/outpat ient Visit, Est [facility], [address], [place], [place], [address], [place] tel:[phone] [facility] No Information Oct-2 6-200 9 Sharifa Cheung. [address] , [address], [place], [facility], [place]. tel:[phone] Referring Provider: Jonatan Munoz, [address], [place], [facility]. tel:[phone] [facility], [address], [place], [place], [address], [place] tel:[phone] [facility] No Information Davon-2 4-200 9 Sharifa Cheung. [facility] , [address], [place], [facility], [place]. tel:[phone] Referring Provider: Jonatan Munoz, [address], [place], [facility]. tel:[phone] [facility], [address], [place], [place], [address], [place] tel:[phone] [facility] No Information Davon-2 2-200 9 Sharifa Cheung. [facility] , [address], [place], [facility], [place]. tel:[phone] Referring Provider: Jonatan Munoz, [address], [place], [facility]. tel:[phone] [facility], [address], [place], [place], [address], [place] tel:[phone] [facility] No Information 9-200 9 Sharifa Edaye. [address] [facility] , [address], [place], [facility], . tel:[phone] Office/outpat ient Visit, [facility], [address] [place] [address] [address], [place], [place], [address], [place] tel:[phone] [facility] No Information Dec-2 3-200 8 Sharifa Edaye. [address] [facility] , [address], [place], [facility], [place]. tel:[phone] Referring Provider: Jonatan Munoz, [address] [facility] [address], [place], [facility]. tel:[phone] Office/outpat ient Visit, [facility], [address] [place] [address] [address], [place], [place], [address], [place] tel:[phone] [facility] No Information 8-200 8 Sharifa Cheung. [address] [facility] , [address], [place], [facility], [place]. tel:[phone] [facility], [address], [place], [place], [address], [place] tel:[phone] [facility] No Information 2 1-200 8 Sahrifa Cheung. [address] [facility] , [address], [place], [facility], [place]. tel:[phone] [facility], [address] [place] [address] [address], [place], [place], [address], [place] tel:[phone] [facility] No Information Jun-3 0-200 8 Sharifa Cheung. [address] , [address], [place], [address], [place]. tel:[phone] Referring Provider: Jonatan Munoz, [address], [place], [facility]. tel:[phone] [facility], [address] [place] [address] [address], [place], [place], [address], [place] tel:[phone] [facility] No Information Jun-2 2-200 8 Sharifa Cheung. [address], [address], [place], [facility], [place]. tel:[phone] Referring Provider: Jonatan Munoz, [address], [place], [facility]. tel:[phone] Office/outpat ient Visit, [facility], [address], [place], [place], [address], [place] tel:[phone] [facility] No Information Nirav-0 9-200 8 Sharifa Cheung. [facility] [address], [address], [place], [facility], [place]. tel:[phone] Office/outpat ient Visit, [facility], [address], [place], [place], [address], [place] tel:[phone] [facility] No Information Oct-1 7-200 7 Sharifa Chenug. [address], [address], [place], [facility], [place]. tel:[phone] [facility], [address] [place] [address] [address], [place], [place], [address], [place] tel:[phone] [facility] No Information Leonardo-1 0-200 7 Sharifa Cheung. [address], [address], [place], [facility], [place]. tel:[phone] Referring Provider: Jonatan Munoz, [address], [place], [address]. tel:[phone] Office/outpat ient Visit, [facility], [address], [place], [place], [address], [place] tel:[phone] [facility] No Information 7 Sharifa Cheung. [address] [facility] , [address], [place], [address], [place]. tel:[phone] Referring Provider: Jonatan Munoz [facility] [address], [place], [address]. tel:[phone] Family History Family Member Type Diagnosis Age At Onset No Information Payers Payer name Insurance type Covered constitution party ID Authoriza tion(s) Medicare [facility] [id number] [place] Commercial [id number] Social History Type Description Quantity Date Captured [...]
--- OUTSIDE RECORDS SUMMARY | 2024-07-31 15:05 | XMS_ITS | Clinical Summary ---
Author Organization [facility] [place] [address] Address [address] [place] [address] Care Team Providers Care Dry Pan Operator Name Role Phone Christian Cardozo MD [...] artery disease of n ative artery of [place] heart with stable angina pectoris 05/07/2018 Overview (05/08/2018): Added automatically from request for surgery [id number] S/P CABG (coronary artery bypass graft) Type 2 diabetes mellitus with other specified co mplication Encounters Date Type Department Care Team Description 07/23/2024 11:30 AM CDT Office Visit [facility] Cardiology [address] [place] [address] Macey Espinosa NP NSTEMI (non-ST elevated myocardial infarction) (HCC) (Primary Dx); Coronary artery disease of [place] artery [place] heart with stable angina pectoris; Status post coronary angiogram; Chronic anticoagulation; Hospital discharge follow-up 07/22/2024 Orders Only [facility] Medical [facility] Cardiology [address] [facility] [address] [place] [phone] Odilia Brothers MD 07/19/2024 Orders Only [facility] Cardiology [address] [place] [address] [place] [phone] Zhen Oliveira MD 06/17/2024 Anticoagulation Visit [facility] Cardiology [address] [place] [address] [place] [phone] Elda Mullins RN 06/13/2024 Anticoagulation Visit [facility] Cardiology [address] [place] [address] [place] [phone] Didi Wills, BEST 05/06/2024 Anticoagulation Visit [facility] Cardiology [address] [place] [address] [place] [phone] Didi Wills, BEST 05/03/2024 Orders Only [facility] [place] [facility] Information Management [address] [place], [place] [phone] Twin Brar MD from Last 3 Months [...] on file Legal Sex Female 1:11 PM SASH CLAMP OPERATOR Gender Identity Not on file Sexual [...] AM CDT EGFR STAT 05/16/2018 9:14 AM SASH CLAMP OPERATOR HEMOGLOBIN A1C Routine 05/07/2018 7:28 PM SASH CLAMP OPERATOR from Last 3 Months or Most [...] inal Result * (ABNORMAL) Protime-INR (06/11/2024) Pathologist [facility] INR 2.50(A) 0.90 - 1.10 EXTERNAL LAB Blood Result [facility] Historical Provider MD LAB BLOOD ORDERABLES Shelley l Result Performing Organization Address [facility]/ZIP Co de Phone Number EXTERNAL LAB * SCAN - LABS (05/03/2024) Result [facility] Twin Brar MD Final Re sult * (ABNORMAL) Protime-INR (05/03/2024) Pathologist [facility] INR 2.10(A) 0.90 - 1.10 EXTERNAL LAB Blood Result [facility] Provider MD LAB BLOOD ORDERABLES Shelley l Result Performing Organization Address [facility]/RUST Co de Phone Number EXTERNAL LAB * Lipid panel (01/08/2024 8:58 AM CDT) [facility] SCRIBED Cholesterol, Total 150 <200 EXTERNAL LAB SCRIBED HDL 39 >40 EXTERNAL LAB SCRIBED LDL 63 <100 EXTERNAL LAB SCRIBED Triglycerides 242 <150 EXTERNAL LAB Blood Result [facility] Provider MD LAB BLOOD ORDERABLES Edit ed Result - Final Performing Organization Address [facility]UST Co de Phone Number EXTERNAL LAB * eGFR (05/16/2018 9:14 AM SASH CLAMP OPERATOR) Pathologist [facility] eGFR 49 mL/min/1.7 3 m2 JACOB SILVER Comment: Interpretive Data Reference Interval Normal >/= 90 mL/min/1.73m2 Mildly decreased* 60 - 89 mL/min/1.73m2 Mildly to moderately decreased 45 - 59 mL/min/1.73m2 Moderately to severely decreased 30 - 44 mL/min/1.73m2 Severely decreased 15 - 29 mL/min/1.73m2 Kidney Failure < 15 mL/min/1.73m2 *Relative to young adult level If -French multiply value by 1.16. Estimated glomerular filtration [...] 2015. Blood specimen (specimen) 05/16/2018 9:14 AM SASH CLAMP OPERATOR 05/16/2018 9:16 AM SASH CLAMP OPERATOR Narrative JACOB - 05/16/2018 9:47 AM SASH CLAMP OPERATOR us Pari Candelario NP LAB BLOOD ORDERABLES Shelley l Result Performing Organization Address [facility]UST Co de Phone Number [facility] [address] [address] [employer] [place] [address] * (ABNORMAL) Hemoglobin A1c (05/07/2018 7:28 PM SASH CLAMP OPERATOR) Hgb A1C 9.0(H) 4.0 - 5.6 % [facility] Estimated Average Glucose 212 mg/dL [facility] Comment: The ADA recommends reporting an estimated Average Glucose (eAG) with all Hemoglobin A1c results using the equation derived from a study of 507 normal and diabetic adults. Minority populations were underrepresented and children were not included. (Diabetes Care 31:5762-5307, 2008). The eAG is not equivalent to a fasting glucose. Blood specimen (specimen) 05/07/2018 7:28 PM SASH CLAMP OPERATOR 05/07/2018 8:02 PM SASH CLAMP OPERATOR [facility]ative [facility] 05/07/2018 8:18 PM SASH CLAMP OPERATOR us Luke Magana MD LAB BLOOD ORDERABLES Final R esult Performing Organization Address [facility] Co de Phone Number [facility] [address] [address] [employer] [place], [place] [id number] from Last 3 Months or Most Recently Relevant to Health Maintenance Insurance MEDICARE [facility] MEDICARE [facility] [employer]MA[employer] CHOICE MEDICARE PPO Advance Directives For more information, please contact: [phone] * Full Code (Latest Code Status on File) Date Activated Date Inactivated Comments 05/18/2018 7:34 PM * Full Code Date Activated Date Inactivated Comments 05/08/2018 3:11 PM 05/16/2018 5:35 PM Care Teams Dry Pan Operator Relationship Specialty Start Date End Date Christian Cardozo MD [address] [facility] [address] [place] [address] PCP - General Family Medicine 06/14/18
--- OUTSIDE RECORDS SUMMARY | 2024-07-31 15:05 | XMS_ITS | Encounter Summary ---
Author Organization [facility] Healthcare Address [address] [place] [address] Care Team Providers Care Catering Manager Name Role Phone Christian Cardozo MD Primary Care Provider Encounter Details Date Type Department Care Team (Late st Contact Info) Description 10/02/2023 Orders Only [facility] [place] [address] [place] [phone] Scanning, Provider Social History Tobacco Use Types Packs/Day Years Used Date Smoking Tobacco: Never Smokeless Tobacco: Never Alcohol Use Standard Drinks/Week Comments No 0 (1 standard drink = 0.6 oz pur e alcohol) Comments Unknown Sex and Gender Information Value Date Recorded Sex Assigned at Not on file Legal Sex Female 1:11 PM STATISTICIAN THEORETICAL Gender Identity Not on file Sexual Orientation [...] on filedocumented in this encounter Care Teams Catering Manager Relationship Specialty Start Date End Date Christian Cardozo MD [address] [facility] [address] [place] [address] PCP - General Family Medicine 06/14/18 documented as of this encounter
--- OUTSIDE RECORDS SUMMARY | 2024-07-31 15:05 | XMS_ITS | Encounter Summary ---
Author Organization [facility] Address [facility] [place] [address] Care Team Providers Care Holistic Pulser Name Role Phone Bianca Silverman Primary Care Provider [phone] Christian Cardozo MD Primary Care Provider [phone] Encounter Details Date Type Department Care Team (Late st Contact Info) Description 09/01/2018 Abstract [facility]FL CONVERSION [address] [place] [address] , Generic Conversion, Social History Tobacco Use Types Packs/Day Years Used Date Smoking Tobacco: Never Assessed Comments Unknown Sex and Gender Information Value Date Recorded Sex Assigned at Female 05/03/2024 2:10 PM CAUL PULLER Legal Sex Female 5:08 PM CDT Gender Identity Not on file Sexual Orientation Not on file documented as of this encounter Plan of Treatment Not on file documented as of this encounter Visit Diagnoses Not on filedocumented in this encounter Care Teams Holistic Pulser Relationship Specialty Start Date End Date Bianca Silverman FNP [address] [place] [address] PCP - General NURSE PRACTITIONER 02/22/19 03/13/24 Christian Cardozo MD [address] [facility] [address] [place] [address] PCP - General FAMILY PRACTICE 03/14/24 documented as of this encounter
[2024-07-31 15:08] LABS: Basophils Percent Auto 0.1 % (0.2-1.2); Hematocrit 32.2 % (37.0-47.0); Hemoglobin 10.2 g/dL (12.0-15.0); Immature Granulocyte Absolute 0.14 K/mm3 (0.00-0.031); Immature Granulocyte Percent A 0.6 % (0-0.5); Lymphocytes Absolute Auto 1.09 K/mm3 (0.9-3.2); Lymphocytes Percent Auto 4.8 % (18.3-44.2); Mean Corpuscular HGB Conc 31.7 g/dl (32-36); Mean Corpuscular Hemoglobin 30.5 pg (26-34); Mean Corpuscular Volume 96.4 fl (80-100); Mean Platelet Volume 9.2 fl (7.4-10.4); Monocytes Absolute Auto 0.8 K/mm3 (0.1-0.6); Monocytes Percent Auto 3.3 % (2.6-8.5); Neutrophils Absolute Auto 20.9 K/mm3 (1.3-6.7); Neutrophils Percent Auto 91.2 % (45.5-73.1); Platelet Count Result 479 k/mm3 (150-375); Red Blood Count 3.34 M/mm3 (4.2-5.4); Red Cell Distribution Width 13.6 % (11.5-14.5); White Blood Count 22.9 K/mm3 (4.5-10.0)
[2024-07-31 15:17] LABS: Alanine Aminotransferase 33 U/L (6-35); Albumin Level 3.6 g/dL (3.5-5.1); Alkaline Phosphatase 88 U/L (38-126); Anion Gap 9 mmol/L (4-12); Aspartate Amino Transferase 39 U/L (14-36); Bilirubin,Total 0.4 mg/dL (0.2-1.3); Blood Urea Nitrogen 23 mg/dL (7-17); Calcium 8.6 mg/dL (8.4-10.2); Carbon Dioxide 20 mmol/L (22-30); Chloride 107 mmol/L (98-107); Estimated CRCL calculation 33 ml/min; Estimated Glomerular Filt Rate 43; Glucose 161 mg/dL (65-110); Lipase 631 U/L (23-300); Potassium 4.3 mmol/L (3.4-5.0); Sodium 136 mmol/L (137-145)
[2024-07-31 15:25] LABS: Hypochromasia 1+; Platelet Estimate Slightly Increased (Adequate); Schistocytes None Seen
[2024-07-31] MEDS: SODIUM CHLORIDE 0.9% IV 1,000 ML 999 ML IV CONT (15:26)
[2024-07-31] MEDS: MORPHINE SULFATE (*CRX) 4 MG/ML INJ IV PUSH ×2 (15:26→18:32)
[2024-07-31 15:37] LABS: Partial Thromboplastin Time 41.3 Seconds (22.3-36.8); Prothrombin Time 49.2 Seconds (11.1-14.7)
[2024-07-31 15:42] LABS: INR 5.3
[2024-07-31 16:28] LABS: Add Urine Microscopic? YES; Appearance Urine Clear (Clear); Bacteria Urine None Seen /hpf; Bilirubin Urine Negative (Negative); Blood Urine Negative (Negative); Color Urine Yellow (Yellow); Glucose Urine UA Negative (Negative); Ketones Urine Trace mg/dL (Negative); Leukocyte Esterase Ur Negative LEU/UL (Negative); Mucus Urine Present /lpf; Need Manual Microscopic Reviewed; Nitrate Urine Negative (Negative); Protein Urine 3+ mg/dL (Negative); RBC Urine 0-2 /hpf (0-2); Specific Grav Ur 1.044 (1.001-1.035); Squamous Epithelial Cell Urine None Seen /hpf (Few); Urobilinogen Urine 0.2 mg/dL (<2.0); WBC Urine 0-5 /hpf (0-3)
--- NOTE | 2024-07-31 16:35 | ED.GENADULT ---
HPI - General Adult General Chief complaint: Nausea/Vomiting/Diarrhea Stated complaint: Nausea, right side pain-light headed Time Seen by Provider: 07/31/24 14:56 History of Present Illness HPI narrative: Patient is an 83-year-old female who presents ER with right-sided abdominal pain. Began last night. Worsening throughout the day. Had a cholecystostomy tube placed last week. Reports it has not been draining today. Denies fevers or chills or sweats. No alleviating factors of her pain. ECC she is having nausea. Related Data Home Medications ?Medication ?Instructions ?Recorded ?Confirmed ?Last Taken ?Type aspirin 81 mg tablet,delayed 81 mg PO DAILY 06/05/19 07/31/24 07/22/24 History release loratadine 10 mg tablet 10 mg PO DAILY 09/11/19 07/31/24 07/22/24 History metoprolol tartrate 25 mg tablet 25 mg PO BID 07/25/23 07/31/24 07/22/24 History latanoprost 0.005 % eye drops 1 drp EACH EYE HS 08/09/23 07/31/24 07/22/24 History metformin 500 mg tablet 500 mg PO BID 08/09/23 07/31/24 07/22/24 History atorvastatin 80 mg tablet 80 mg PO QPM 07/15/24 07/31/24 07/22/24 History lansoprazole 15 mg capsule,delayed 15 mg PO DAILY 07/15/24 07/31/24 07/22/24 History release acetaminophen 650 mg 650 mg PO Q8H PRN pain 07/23/24 07/31/24 07/22/24 History tablet,extended release (Arthritis Pain Relief (acetaminophen) ER) furosemide 20 mg tablet See Rx Instructions PO .COMPLEX 07/23/24 07/31/24 Unknown History Allergies Allergy/AdvReac Type Severity Reaction Status Date / Time No Known Allergies Allergy Verified 07/23/24 08:33 Review of Systems Review of Systems: All systems reviewed & are unremarkable except as noted in HPI and below Constitutional: Constitutional: Reports no additional constitutional complaints ENT: Reports system reviewed and no additional complaints, except as documented Cardiovascular: Cardiovascular: Reports no additional cardiovascular complaints Respiratory: Respiratory: Reports no additional respiratory complaints Gastrointestinal: Gastrointestinal: Reports no additional gastrointestinal complaints [facility] Past Medical History Medical History (Updated 07/31/24 @ 21:30 by Reinaldo Medley MD) Mild aortic stenosis Diabetic nephropathy Low vitamin D level CKD (chronic kidney disease) stage 4, GFR 15-29 ml/min Paroxysmal atrial fibrillation Anticoagulant long-term use Essential hypertension CHF (congestive heart failure) Echocardiogram 07/15/2024 demonstrated EF 50-55% mildly increased left ventricular wall thickness diastolic dysfunction grade 1 moderate left atrial enlargement moderate mitral valve regurgitation Congenital hearing loss of both ears Heart disease Glaucoma Pulmonary embolism Distal radius fracture Diabetes 1.5, managed as type 2 Depression Arthritis Myocardial infarction (lateral wall) Anxiety History of fracture of wrist Surgical History Surgical History History of cardiac catheterization Most recent heart catheterization 07/19/2024 demonstrated multivessel coronary disease with moderate ostial RCA disease calcifications in the midportion of the RCA with 80% stenosis lesion likely culprit for the patient's non STEMI RCA is not revascularized with a bypass graft given calcified vessel an ostial disease PCI of mid see RCA may be more technically challenging and therefore was not pursued. Will plan for outpatient PCI after acute cholecystitis resolved. 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 H/O heart bypass surgery H/O sinus surgery H/O shoulder surgery H/O cataract extraction History of bunionectomy Family History Family History Other Diabetes mellitus Family history of arthritis Family history of malignant neoplasm Social History Social History Social History: Smoking status: Never smoker Second hand tobacco smoke exposure: No Alcohol intake: never Substance use: never Substance use type: does not use Do You Feel Safe in your Home?: Yes Lack of Transportation: No Lack of Food: Never True Current Housing: I Have Housing Concerned About Future Housing: No Difficulty Paying Gas/Electric Bills: No Difficulty Paying for Meds: No Currently Unemployed: No Education: High School Diploma/GED Difficulty w/ Childcare or Family Care: No Living arrangements: alone Occupation/Education: occupation Additional occupation/education comments: [employer]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 Gender identity (if verbalized by the patient): Female Sexual Orientation (if Verbalized by the Patient): Straight or Heterosexual Spiritual care concerns: No Exam Narrative: GENERAL: Well-appearing, well-nourished, and in no acute distress. HEAD: Normocephalic, atraumatic. ENT: Mucous membranes moist. CHEST: Clear to auscultation. No respiratory distress. HEART: Regular rate and rhythm. Normal peripheral pulses. ABDOMEN: Soft, RUQ Tenderness and RLQ tenderness with palpation, RUQ cholecystostomy tube with small amount of bilious drainage, nondistended EXTREMITIES: Normal range of motion. No edema. SKIN: Warm, dry, no rash. NEURO: Alert and oriented x3. PSYCH: Normal mood and affect. Course Course Emergency Course: Patient gets mild relief of pain from morphine. Discussed with Dr. Alexandria parson. Admit to hospitalist service. Patient started on Zosyn. Discuss case with hospitalist service. Likely need to hold Coumadin and trend INR. Will evaluate lower extremity for DVT. Vital Signs Vital signs: Vital Signs Temperature 97.8 F 07/31/24 14:01 Pulse Rate 50 L 07/31/24 14:01 Respiratory Rate 16 07/31/24 14:01 Blood Pressure 127/47 L 07/31/24 14:01 Pulse Oximetry 98 07/31/24 14:01 Oxygen Delivery Room Air 07/31/24 14:01 Temperature 97.8 F 07/31/24 14:01 Pulse Rate 70 07/31/24 19:01 Respiratory Rate 29 H 07/31/24 19:01 Blood Pressure 142/54 H 07/31/24 19:01 Pulse Oximetry 97 07/31/24 19:06 Oxygen Delivery Nasal Cannula 07/31/24 19:06 Oxygen Flow Rate 2 07/31/24 19:06 Medical Decision Making Vital Signs Vital Signs: Vital Signs Temperature 97.8 F 07/31/24 14:01 Pulse Rate 50 L 07/31/24 14:01 Respiratory Rate 16 07/31/24 14:01 Blood Pressure 127/47 L 07/31/24 14:01 Pulse Oximetry 98 07/31/24 14:01 Oxygen Delivery Room Air 07/31/24 14:01 Temperature 97.8 F 07/31/24 14:01 Pulse Rate 70 07/31/24 19:01 Respiratory Rate 29 H 07/31/24 19:01 Blood Pressure 142/54 H 07/31/24 19:01 Pulse Oximetry 97 07/31/24 19:06 Oxygen Delivery Nasal Cannula 07/31/24 19:06 Oxygen Flow Rate 2 07/31/24 19:06 Lab Data 07/31/24 14:54 07/31/24 14:54 Labs: Lab Results 07/31/24 07/31/24 07/31/24 Range/Units 14:52 14:54 16:03 WBC 22.9 H (4.5-10.0) K/mm3 RBC 3.34 L (4.2-5.4) M/mm3 Hgb 10.2 L (12.0-15.0) g/dL Hct 32.2 L (37.0-47.0) % MCV 96.4 (80-100) fl MCH 30.5 (26-34) pg MCHC 31.7 L (32-36) g/dl RDW 13.6 (11.5-14.5) % Plt Count 479 H (150-375) k/mm3 MPV 9.2 (7.4-10.4) fl Immature Gran % (Auto) 0.6 H (0-0.5) % Neut % (Auto) 91.2 H (45.5-73.1) % Lymph % (Auto) 4.8 L (18.3-44.2) % [place] % (Auto) 3.3 (2.6-8.5) % Eos % (Auto) 0.0 (0-4.4) % Baso % (Auto) 0.1 L (0.2-1.2) % Lymph # (Auto) 1.09 (0.9-3.2) K/mm3 [place] # (Auto) 0.8 H (0.1-0.6) K/mm3 Eos # (Auto) 0.0 (0-0.3) K/mm3 Baso # (Auto) 0.0 (0.0-0.1) K/mm3 Abs Immat Gran (auto) 0.14 H (0.00-0.031) K/mm3 Absolute Neuts (auto) 20.9 H (1.3-6.7) K/mm3 Absolute Nucleated RBC 0.000 (0.0-0.012) K/mm3 Band Neutrophils % Not Reportable Nucleated RBC % 0.0 (0.0-0.2) % Platelet Estimate Slightly increased (Adequate) Hypochromasia 1+ Schistocytes None seen PT 49.2 H D (11.1-14.7) Seconds INR 5.3 H* APTT 41.3 H (22.3-36.8) Seconds Sodium 136 L (137-145) mmol/L Potassium 4.3 (3.4-5.0) mmol/L Chloride 107 (98-107) mmol/L Carbon Dioxide 20 L (22-30) mmol/L Anion Gap 9 (4-12) mmol/L BUN 23 H (7-17) mg/dL Creatinine 1.20 H (0.7-1.0) mg/dL Estim Creat Clear Calc 33 ml/min Estimated GFR 43 L (59 - ) Glucose 161 H (65-110) mg/dL Lactic Acid (0.7-2.0) mmol/L Calcium 8.6 (8.4-10.2) mg/dL Total Bilirubin 0.4 (0.2-1.3) mg/dL AST 39 H (14-36) U/L ALT 33 (6-35) U/L Alkaline Phosphatase 88 (38-126) U/L Total Protein 6.0 L (6.3-8.2) g/dL Albumin 3.6 (3.5-5.1) g/dL Lipase 631 H (23-300) U/L Urine Color Yellow (Yellow) Urine Appearance Clear (Clear) Urine pH 5.0 (5.0-9.0) Ur Specific [place] 1.044 H (1.001-1.035) Urine Protein 3+ H (Negative) mg/dL Urine Glucose (UA) Negative (Negative) mg/dL Urine Ketones Trace H (Negative) mg/dL Ur Blood (Man) Negative (Negative) Urine Nitrate Negative (Negative) Urine Bilirubin Negative (Negative) Urine Urobilinogen 0.2 (<2.0) mg/dL Add Ur Microanalysis Reviewed Leukocyte Esterase Rfl Negative (Negative) MAIDA/UL Urine RBC 0-2 (0-2) /hpf Urine WBC 0-5 (0-3) /hpf Ur Squamous Epith Cells None seen (Few) /hpf Urine Bacteria None seen /hpf Urine Casts 3-5 Urine Mucus Present /lpf 07/31/24 Range/Units 16:44 WBC (4.5-10.0) K/mm3 RBC (4.2-5.4) M/mm3 Hgb (12.0-15.0) g/dL Hct (37.0-47.0) % MCV (80-100) fl MCH (26-34) pg MCHC (32-36) g/dl RDW (11.5-14.5) % Plt Count (150-375) k/mm3 MPV (7.4-10.4) fl Immature Gran % (Auto) (0-0.5) % Neut % (Auto) (45.5-73.1) % Lymph % (Auto) (18.3-44.2) % [place] % (Auto) (2.6-8.5) % Eos % (Auto) (0-4.4) % Baso % (Auto) (0.2-1.2) % Lymph # (Auto) (0.9-3.2) K/mm3 [place] # (Auto) (0.1-0.6) K/mm3 Eos # (Auto) (0-0.3) K/mm3 Baso # (Auto) (0.0-0.1) K/mm3 Abs Immat Gran (auto) (0.00-0.031) K/mm3 Absolute Neuts (auto) (1.3-6.7) K/mm3 Absolute Nucleated RBC (0.0-0.012) K/mm3 Band Neutrophils % Nucleated RBC % (0.0-0.2) % Platelet Estimate (Adequate) Hypochromasia Schistocytes PT (11.1-14.7) Seconds INR APTT (22.3-36.8) Seconds Sodium (137-145) mmol/L Potassium (3.4-5.0) mmol/L Chloride (98-107) mmol/L Carbon Dioxide (22-30) mmol/L Anion Gap (4-12) mmol/L BUN (7-17) mg/dL Creatinine (0.7-1.0) mg/dL Estim Creat Clear Calc ml/min Estimated GFR (59 - ) Glucose (65-110) mg/dL Lactic Acid 1.5 (0.7-2.0) mmol/L Calcium (8.4-10.2) mg/dL Total Bilirubin (0.2-1.3) mg/dL AST (14-36) U/L ALT (6-35) U/L Alkaline Phosphatase (38-126) U/L Total Protein (6.3-8.2) g/dL Albumin (3.5-5.1) g/dL Lipase (23-300) U/L Urine Color (Yellow) Urine Appearance (Clear) Urine pH (5.0-9.0) Ur Specific [place] (1.001-1.035) Urine Protein (Negative) mg/dL Urine Glucose (UA) (Negative) mg/dL Urine Ketones (Negative) mg/dL Ur Blood (Man) (Negative) Urine Nitrate (Negative) Urine Bilirubin (Negative) Urine Urobilinogen (<2.0) mg/dL Add Ur Microanalysis Leukocyte Esterase Rfl (Negative) MAIDA/UL Urine RBC (0-2) /hpf Urine WBC (0-3) /hpf Ur Squamous Epith Cells (Few) /hpf Urine Bacteria /hpf Urine Casts Urine Mucus /lpf Imaging Data Radiologist's impression: ITS Impressions Abdomen/Pelvis CT 07/31/24 15:50 IMPRESSION: Findings at the level of the right common femoral vein for which thrombus is suspected. Findings within the bladder for which cystitis is suspected. Free fluid within the deep pelvis. Redemonstration of a percutaneous cholecystostomy, in good position within the gallbladder which is now decompressed with persistent surrounding inflammatory change. Discharge Plan Discharge Clinical Impression: Abdominal fluid collection, Supratherapeutic INR, Abdominal pain, lower, DVT (deep venous thrombosis) Patient Disposition: Still a Patient Condition: Stable
[2024-07-31 17:04] LABS: Lactic Acid Reflex 1.5 mmol/L (0.7-2.0)
--- NOTE | 2024-07-31 18:11 | P.HP_ITS ---
H&P: HPI History of Present Illness Date/Time: 07/31/24 18:11 Chief Complaint: Abdominal pain Narrative: 3-year-old female past medical history of CKD stage 4, diabetes, MT, cholecystitis with a coli tube presents the hospital with abdominal pain. Patient states that ever since she has had health problems. And she is tired of being in hospital. She states that her coli tube is been working well since she has left the hospital. However today she knows that she had very little output and she had increasing abdominal pain on her right side of her abdomen. She became concerned about her per coli tube so she came into the hospital. In the ED her blood work shows leukocytosis at 22.9, anemia at 10.2, INR of 5.3, creatinine of 1.2, AST of 39, lipase of 631, urine noninfective. CT of the abdomen shows Findings at the level of the right common femoral vein for which thrombus is suspected. Findings within the bladder for which cystitis is suspected. Free fluid within the deep pelvis. Redemonstration of a percutaneous cholecystostomy, in good position within the gallbladder which is now decompressed with persistent surrounding inflammatory change.Fecal stasis within the colon. Venous Doppler negative for DVT. Patient was given fluid bolus and started on Zosyn in the ED. general surgery was consulted. Review of Systems Review of Systems: 12 systems were reviewed and are negativ e except for as per HPI. FORMERLY [facility], [facility] Past Medical History Medical History (Updated 07/31/24 @ 21:30 by Reinaldo Medley MD) Mild aortic stenosis Diabetic nephropathy Low vitamin D level CKD (chronic kidney disease) stage 4, GFR 15-29 ml/min Paroxysmal atrial fibrillation Anticoagulant long-term use Essential hypertension CHF (congestive heart failure) Echocardiogram 07/15/2024 demonstrated EF 50-55% mildly increased left ventricular wall thickness diastolic dysfunction grade 1 moderate left atrial enlargement moderate mitral valve regurgitation Congenital hearing loss of both ears Heart disease Glaucoma Pulmonary embolism Distal radius fracture Diabetes 1.5, managed as type 2 Depression Arthritis Myocardial infarction (lateral wall) Anxiety History of fracture of wrist Surgical History Surgical History History of cardiac catheterization Most recent heart catheterization 07/19/2024 demonstrated multivessel coronary disease with moderate ostial RCA disease calcifications in the midportion of the RCA with 80% stenosis lesion likely culprit for the patient's non STEMI RCA is not revascularized with a bypass graft given calcified vessel an ostial disease PCI of mid see RCA may be more technically challenging and therefore was not pursued. Will plan for outpatient PCI after acute cholecystitis resolved. 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 H/O heart bypass surgery H/O sinus surgery H/O shoulder surgery H/O cataract extraction History of bunionectomy Family History Family History Other Diabetes mellitus Family history of arthritis Family history of malignant neoplasm Social History Social History Social History: Smoking status: Never smoker Second hand tobacco smoke exposure: No Alcohol intake: never Substance use: never Substance use type: does not use Do You Feel Safe in your Home?: Yes Lack of Transportation: No Lack of Food: Never True Current Housing: I Have Housing Concerned About Future Housing: No Difficulty Paying Gas/Electric Bills: No Difficulty Paying for Meds: No Currently Unemployed: No Education: High School Diploma/GED Difficulty w/ Childcare or Family Care: No Living arrangements: alone Occupation/Education: occupation Additional occupation/education comments: [employer]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 Gender identity (if verbalized by the patient): Female Sexual Orientation (if Verbalized by the Patient): Straight or Heterosexual Spiritual care concerns: No Meds Home Medications and Allergies Home Medications ?Medication ?Instructions ?Recorded ?Confirmed ?Type blood sugar diagnostic (Accu-Chek #100 ea 05/20/19 07/31/24 Rx Ingrid Plus test strips) aspirin 81 mg tablet,delayed 81 mg PO DAILY 06/05/19 07/31/24 History release loratadine 10 mg tablet 10 mg PO DAILY 09/11/19 07/31/24 History ferrous sulfate 325 mg (65 mg 325 mg PO DAILY #90 tabs 10/24/22 07/31/24 Rx iron) tablet (Iron (ferrous sulfate)) citalopram 10 mg tablet 10 mg PO DAILY #90 tabs 03/06/23 07/31/24 Rx metoprolol tartrate 25 mg tablet 25 mg PO BID 07/25/23 07/31/24 History latanoprost 0.005 % eye drops 1 drp EACH EYE HS 08/09/23 07/31/24 History metformin 500 mg tablet 500 mg PO BID 08/09/23 07/31/24 History spironolactone 25 mg tablet 25 mg PO DAILY #90 tabs 10/02/23 07/31/24 Rx albuterol sulfate 90 mcg/actuation 2 puff inhalation QID PRN 04/15/24 07/31/24 Rx aerosol inhaler shortness of breath or wheezing #6.7 grams ergocalciferol (vitamin D2) 1,250 1,250 mcg PO WEEKLY #14 caps 06/14/24 07/31/24 Rx mcg (50,000 unit) capsule (Vitamin D2) amlodipine 10 mg tablet 10 mg PO DAILY #90 tabs 07/01/24 07/31/24 Rx atorvastatin 80 mg tablet 80 mg PO QPM 07/15/24 07/31/24 History lansoprazole 15 mg capsule,delayed 15 mg PO DAILY 07/15/24 07/31/24 History release acetaminophen 650 mg 650 mg PO Q8H PRN pain 07/23/24 07/31/24 History tablet,extended release (Arthritis Pain Relief (acetaminophen) ER) furosemide 20 mg tablet See Rx Instructions PO .COMPLEX 07/23/24 07/31/24 History amoxicillin 500 mg-potassium 1 tablet PO BID #7 tabs 07/25/24 07/31/24 Rx clavulanate 125 mg tablet (Augmentin) prednisone 10 mg tablets in a dose See Taper PO DAILY gout flare 7 07/25/24 07/31/24 Rx pack days #42 tabs warfarin 2 mg tablet 8 mg (4 x 2 mg) PO DAILY Atrial 07/25/24 07/31/24 Rx Fibrillation #30 tabs Allergies Allergy/AdvReac Type Severity Reaction Status Date / Time No Known Allergies Allergy Verified 07/23/24 08:33 Vital Signs Vital Signs - 24 hr 07/31/24 14:01 07/31/24 14:55 07/31/24 15:11 Temperature 97.8 F Pulse Rate 50 L 55 L 49 L Respiratory Rate 16 20 20 Blood Pressure 127/47 L 191/70 H 183/66 H Pulse Oximetry 98 97 100 Oxygen Delivery Room Air 07/31/24 16:44 Temperature Pulse Rate 58 L Respiratory Rate 23 H Blood Pressure 154/64 H Pulse Oximetry 96 Oxygen Delivery Exam Narrative: General: well appearing, appears stated age. HEENT: normocephalic, atraumatic. Mucous membranes moist. EOMI, PERRLA, bilateral sclera anicteric, no conjunctival injection. Neck supple without JVD, lymphadenopathy, or bruit. Respiratory: clear to ascultation bilaterally. No rales/rhonic/wheezes. Continues to cannula Cardiovascular: Regular rate and rhythm, normal S1-S2 upon ascultation. No murmurs, rubs, or clicks. PMI is nondisplaced, capillary refill less than 3 second. Abdomen: Soft, round, no pulsatile masses, nondistended and nontender. No rebound, no guarding. No CVA tenderness, no hepatosplenomegaly. Bowel sounds present to all four quadrants. No high pitch or tinkling sounds, resonant to percussion. Per coli tube Extremities: No cyanosis, clubbing, or edema present. Pulses are palpable 2/2. Active ROM to all four extremities. Neuro: Alert and orientated x 4. PERRLA. Cranial nerves 2-12 intact without focal deficit. Skin: Warm, dry, and intact, without rash, erythema, or lesion. Psych: pleasant, cooperative, normal speech, normal affect, no hallucinations, no dysarthia H&P: Results Labs Labs: Short CBC 07/31/24 Range/Units 14:54 WBC 22.9 H (4.5-10.0) K/mm3 Hgb 10.2 L (12.0-15.0) g/dL Hct 32.2 L (37.0-47.0) % Plt Count 479 H (150-375) k/mm3 BMP 07/31/24 14:54 Sodium 136 L Potassium 4.3 Chloride 107 Carbon Dioxide 20 L BUN 23 H Creatinine 1.20 H Glucose 161 H Calcium 8.6 Liver Function 07/31/24 Range/Units 14:54 Total Bilirubin 0.4 (0.2-1.3) mg/dL AST 39 H (14-36) U/L ALT 33 (6-35) U/L Alkaline Phosphatase 88 (38-126) U/L Albumin 3.6 (3.5-5.1) g/dL Urine 07/31/24 Range/Units 16:03 Urine Color Yellow (Yellow) Urine Appearance Clear (Clear) Urine pH 5.0 (5.0-9.0) Ur Specific [place] 1.044 H (1.001-1.035) Urine Protein 3+ H (Negative) mg/dL Urine Glucose (UA) Negative (Negative) mg/dL Assessment and Plan Assessment and plan (1) Abdominal pain: Code(s): R10.9 - Unspecified abdominal pain Status: Acute Assessment and Plan: Could be due to constipation versus infection versus bile leak Pain medications (2) Cholecystitis: Code(s): K81.9 - Cholecystitis, unspecified Status: Acute Assessment and Plan: Status post perc abby tube Surgery consulted pending recommendations NPO midnight for possible procedure (3) Constipation: Code(s): K59.00 - Constipation, unspecified Status: Acute Assessment and Plan: Fecal stasis of the ascending colon Aggressive bowel protocol Will need to be on home bowel protocol when discharge (4) Leukocytosis: Code(s): D72.829 - Elevated white blood cell count, unspecified Status: Acute Assessment and Plan: Blood cultures pending UA negative IV Zosyn for possible intra-abdominal infection (5) Supratherapeutic INR: Code(s): R79.1 - Abnormal coagulation profile Status: Acute Assessment and Plan: Daily INR let naturally trend down Currently Holding warfarin, patient was taking 8 mg (6) Anemia: Code(s): D64.9 - Anemia, unspecified Status: Acute Assessment and Plan: At baseline No signs of acute bleeding Daily CBC Transfuse if less than 7 (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 HS SSI Hold home metformin (8) Paroxysmal atrial fibrillation: Code(s): I48.0 - Paroxysmal atrial fibrillation Status: Chronic Assessment and Plan: Currently holding warfarin INR in a.m. (9) CHF (congestive heart failure): Qualifiers: Heart failure chronicity: chronic Heart failure type: diastolic Qualified Code(s): I50.32 - Chronic diastolic (congestive) heart failure Code(s): I50.9 - Heart failure, unspecified Status: Acute Assessment and Plan: Restart p.o. Lasix Q 48 hours and spironolactone daily (10) HTN (hypertension): Qualifiers: Hypertension type: essential hypertension Qualified Code(s): I10 - Essential (primary) hypertension Code(s): I10 - Essential (primary) hypertension Status: Chronic Assessment and Plan: Continue amlodipine Quality VTE Prophylaxis VTE prophylaxis: mechanical ordered If No VTE Prophylaxis Answer both mechanical and pharmacologic: Reason no pharmacologic proph: medical contraindication supratherapeutic INR >3 Hospitalist MIPS Advance Care Plan I have confirmed that the patient's Advanced Care Plan is present, code status is documented, or surrogate decision maker is listed in patient medical record.: Yes Medication Reconciliation I have utilized all available resources to obtain, update and review the patients current medications (includes all prescriptions, OTC, herbals, cannabis, and nutritional supplements).: Yes
[2024-07-31] MEDS: SODIUM CHLORIDE 0.9% IV 1,000 ML 125 ML IV CONT (18:29)
[2024-07-31] MEDS: PIPERACILLN/TAZ 3.375GM/NS50ML 3.375 GM/50 ML BAG IVPB (18:30)
--- NOTE | 2024-07-31 19:50 | ADMGEN ---
This patient, Gill Kowalski, was admitted to IMU Room 205-01. Patient/family oriented to hospital policies and general routines including ID bracelet, bed and alarms, visiting hours, pain management, procedures, bathroom and other care routines, personal items, smoking policy, room service/diet, and visiting hours. Information on how to activate the Rapid Response Team has been discussed. Patient/Family are encouraged to report perceived risks to care and to ask questions if they do not understand what they are told or what they should do.
[2024-08-01] VITALS (23 sets, daily range): BP systolic 146–179; BP diastolic 55–70; PULSE 56–96; RESP 15–28; TEMP 36.3–37.2; O2SAT 92–98
[2024-08-01] MEDS: ATORVASTATIN 40 MG TABLET 80 MG PO ×2 (00:15→22:03)
[2024-08-01] MEDS: METOPROLOL TARTRATE 25 MG TABLET PO ×3 (00:15→22:04)
[2024-08-01] MEDS: LATANOPROST 0.005% OP SOLN 2.5 ML BTL 1 DROP EACH EYE ×2 (00:15→22:04)
[2024-08-01] MEDS: PIPERACILLIN/TAZ 2.25G/NS 50ML 2.25 GM/50 ML BAG IVPB ×4 (00:16→17:11)
[2024-08-01] MEDS: MORPHINE SULFATE (*CRX) 2 MG/ML INJ IV PUSH (00:23)
[2024-08-01] MEDS: SODIUM CHLORIDE 0.9% IV 1,000 ML 125 ML IV CONT ×2 (02:12→10:50)
[2024-08-01 04:44] LABS: Basophils Percent Auto 0.1 % (0.2-1.2); Hematocrit 27.2 % (37.0-47.0); Hemoglobin 8.7 g/dL (12.0-15.0); Immature Granulocyte Absolute 0.18 K/mm3 (0.00-0.031); Immature Granulocyte Percent A 0.8 % (0-0.5); Lymphocytes Absolute Auto 1.06 K/mm3 (0.9-3.2); Lymphocytes Percent Auto 4.6 % (18.3-44.2); Mean Corpuscular Volume 96.8 fl (80-100); Mean Platelet Volume 9.4 fl (7.4-10.4); Monocytes Percent Auto 4.2 % (2.6-8.5); Neutrophils Absolute Auto 20.7 K/mm3 (1.3-6.7); Neutrophils Percent Auto 90.3 % (45.5-73.1); Platelet Count Result 343 k/mm3 (150-375); Red Blood Count 2.81 M/mm3 (4.2-5.4); Red Cell Distribution Width 13.8 % (11.5-14.5); White Blood Count 22.9 K/mm3 (4.5-10.0)
[2024-08-01 04:56] LABS: Anion Gap 8 mmol/L (4-12); Blood Urea Nitrogen 17 mg/dL (7-17); Calcium 8.2 mg/dL (8.4-10.2); Carbon Dioxide 21 mmol/L (22-30); Chloride 109 mmol/L (98-107); Estimated CRCL calculation 37 ml/min; Estimated Glomerular Filt Rate 49; Glucose 91 mg/dL (65-110); Potassium 4.4 mmol/L (3.4-5.0); Sodium 138 mmol/L (137-145)
[2024-08-01 05:16] LABS: Anisocytosis 1+; Band Neutrophils Percent 0 % (0-6); Ovalocytes 1+; Platelet Estimate Adequate (Adequate); Schistocytes None Seen
[2024-08-01 05:27] LABS: Prothrombin Time 50.6 Seconds (11.1-14.7)
[2024-08-01 05:29] LABS: Partial Thromboplastin Time 91.7 Seconds (22.3-36.8)
[2024-08-01 05:30] LABS: INR 5.5
[2024-08-01 07:44] LABS: Glucose Point of Care 87 mg/dl (65-105)
[2024-08-01] MEDS: HYDROcodone/acetaminophen (*CRX) 5-325 MG TABLET 1 TAB PO (09:03)
[2024-08-01] MEDS: amLODIPine BESYLATE 10 MG TABLET PO (09:04)
[2024-08-01] MEDS: ASPIRIN 81 MG ENTERIC TABLET PO (09:04)
[2024-08-01] MEDS: LORATADINE 10 MG TABLET PO (09:05)
[2024-08-01] MEDS: FERROUS SULFATE 325 MG TABLET DR PO (09:05)
[2024-08-01] MEDS: CITALOPRAM HYDROBROMIDE 10 MG TABLET PO (09:06)
[2024-08-01 12:11] LABS: Glucose Point of Care 86 mg/dl (65-105)
--- NOTE | 2024-08-01 15:08 | P.CONGS_ITS ---
Assessment and Plan Assessment and plan (1) Cholecystostomy care: Code(s): Z43.4 - Encounter for attention to other artificial openings of digestive tract Status: Acute Assessment and Plan: Cholecystostomy tube in position on CT, but still some inflammatory stranding around the gallbladder and free fluid in the pelvis. There were issues with this not draining, followed by RUQ pain at home prior to admission. Will order a cholangiogram through her cholecystostomy tube to confirm placement and make sure there is no leak around the cholecystostomy tube. Continue to monitor the drain for now, which appears to be draining better today and her pain has resolved. Continue IV antibiotics. (2) Cholecystitis: Code(s): K81.9 - Cholecystitis, unspecified Status: Acute (3) Coronary artery disease: Code(s): I25.10 - Atherosclerotic heart disease of [place] coronary artery without angina pectoris Status: Chronic (4) Paroxysmal atrial fibrillation: Code(s): I48.0 - Paroxysmal atrial fibrillation Status: Chronic (5) Anticoagulant long-term use: Code(s): Z79.01 - long-term (current) use of anticoagulants Status: Acute (6) Supratherapeutic INR: Code(s): R79.1 - Abnormal coagulation profile Status: Acute (7) Type 2 diabetes mellitus with chronic kidney disease: Code(s): E11.22 - Type 2 diabetes mellitus with diabetic chronic kidney disease Status: Acute Plan I have discussed the patient's case and plan of care with Dr. Mar. History of Present Illness Consult details Consult date: 08/01/24 Reason for consult: other (Cholecystostomy tube) Requesting physician: Reinaldo Medley MD Narrative: This is an 83-year-old woman who is known to our service from recent hospitalization for bacteremia and acute cholecystitis treated with cholecystostomy tube and antibiotics. She was readmitted about a week ago with GIO. Her cholecystostomy tube is functioning well at that time. The plan was to follow-up as an outpatient and get a cholangiogram next week. She reports yesterday waking up with right upper quadrant abdominal pain. She noticed that her cholecystostomy tube had no output throughout the day. She came into the ED for evaluation. Labs showed a white blood cell count went up to 22,900, which was normal a week ago. LFTs were essentially normal. INR was up to 5.3. CT scan of the abdomen and pelvis showed findings at the right common femoral vein which thrombosis expected, cystitis, free fluid within the deep pelvis, and a percutaneous cholecystostomy tube in good position with persistent surrounding inflammatory change but is decompressed. She was admitted and started on broad- spectrum IV antibiotics. Venous Doppler study negative for DVT. She is now seen in the IMU. Her cholecystostomy tube appears to be functioning well with nearly 500 cc out of the drain today. Review of Systems 2 Review of Systems: All systems reviewed & are unremarkable except as noted in HPI and below [facility] Past Medical History Medical History Mild aortic stenosis Diabetic nephropathy Low vitamin D level CKD (chronic kidney disease) stage 4, GFR 15-29 ml/min Paroxysmal atrial fibrillation Anticoagulant long-term use Essential hypertension CHF (congestive heart failure) Echocardiogram 07/15/2024 demonstrated EF 50-55% mildly increased left ventricular wall thickness diastolic dysfunction grade 1 moderate left atrial enlargement moderate mitral valve regurgitation Congenital hearing loss of both ears Heart disease Glaucoma Pulmonary embolism Distal radius fracture Diabetes 1.5, managed as type 2 Depression Arthritis Myocardial infarction (lateral wall) Anxiety History of fracture of wrist Surgical History Surgical History History of cardiac catheterization Most recent heart catheterization 07/19/2024 demonstrated multivessel coronary disease with moderate ostial RCA disease calcifications in the midportion of the RCA with 80% stenosis lesion likely culprit for the patient's non STEMI RCA is not revascularized with a bypass graft given calcified vessel an ostial disease PCI of mid see RCA may be more technically challenging and therefore was not pursued. Will plan for outpatient PCI after acute cholecystitis resolved. 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 H/O heart bypass surgery H/O sinus surgery H/O shoulder surgery H/O cataract extraction History of bunionectomy Family History Family History Other Diabetes mellitus Family history of arthritis Family history of malignant neoplasm Social History Social History Social History: Smoking status: Never smoker Second hand tobacco smoke exposure: No Alcohol intake: never Substance use: never Substance use type: does not use Do You Feel Safe in your Home?: Yes Lack of Transportation: No Lack of Food: Never True Current Housing: I Have Housing Concerned About Future Housing: No Difficulty Paying Gas/Electric Bills: No Difficulty Paying for Meds: No Currently Unemployed: No Education: High School Diploma/GED Difficulty w/ Childcare or Family Care: No Living arrangements: alone Occupation/Education: occupation 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 Gender identity (if verbalized by the patient): Female Sexual Orientation (if Verbalized by the Patient): Straight or Heterosexual Spiritual care concerns: No Meds Home Medications and Allergies Home Medications ?Medication ?Instructions ?Recorded ?Confirmed ?Type blood sugar diagnostic (Accu-Chek #100 ea 05/20/19 07/31/24 Rx Ingrid Plus test strips) aspirin 81 mg tablet,delayed 81 mg PO DAILY 06/05/19 07/31/24 History release loratadine 10 mg tablet 10 mg PO DAILY 09/11/19 07/31/24 History ferrous sulfate 325 mg (65 mg 325 mg PO DAILY #90 tabs 10/24/22 07/31/24 Rx iron) tablet (Iron (ferrous sulfate)) citalopram 10 mg tablet 10 mg PO DAILY #90 tabs 03/06/23 07/31/24 Rx metoprolol tartrate 25 mg tablet 25 mg PO BID 07/25/23 07/31/24 History latanoprost 0.005 % eye drops 1 drp EACH EYE HS 08/09/23 07/31/24 History metformin 500 mg tablet 500 mg PO BID 08/09/23 07/31/24 History spironolactone 25 mg tablet 25 mg PO DAILY #90 tabs 10/02/23 07/31/24 Rx albuterol sulfate 90 mcg/actuation 2 puff inhalation QID PRN 04/15/24 07/31/24 Rx aerosol inhaler shortness of breath or wheezing #6.7 grams ergocalciferol (vitamin D2) 1,250 1,250 mcg PO WEEKLY #14 caps 06/14/24 07/31/24 Rx mcg (50,000 unit) capsule (Vitamin D2) amlodipine 10 mg tablet 10 mg PO DAILY #90 tabs 07/01/24 07/31/24 Rx atorvastatin 80 mg tablet 80 mg PO QPM 07/15/24 07/31/24 History lansoprazole 15 mg capsule,delayed 15 mg PO DAILY 07/15/24 07/31/24 History release acetaminophen 650 mg 650 mg PO Q8H PRN pain 07/23/24 07/31/24 History tablet,extended release (Arthritis Pain Relief (acetaminophen) ER) furosemide 20 mg tablet See Rx Instructions PO .COMPLEX 07/23/24 07/31/24 History amoxicillin 500 mg-potassium 1 tablet PO BID #7 tabs 07/25/24 07/31/24 Rx clavulanate 125 mg tablet (Augmentin) prednisone 10 mg tablets in a dose See Taper PO DAILY gout flare 7 07/25/24 07/31/24 Rx pack days #42 tabs warfarin 2 mg tablet 8 mg (4 x 2 mg) PO DAILY Atrial 07/25/24 07/31/24 Rx Fibrillation #30 tabs Allergies Allergy/AdvReac Type Severity Reaction Status Date / Time No Known Allergies Allergy Verified 07/23/24 08:33 Vital Signs Vital Signs - 24 hr 07/31/24 15:11 07/31/24 16:44 07/31/24 17:01 Temperature Pulse Rate 49 L 58 L 53 L Respiratory Rate 20 23 H 24 H Blood Pressure 183/66 H 154/64 H 132/53 L Pulse Oximetry 100 96 95 Oxygen Delivery Oxygen Flow Rate 07/31/24 17:31 07/31/24 18:01 07/31/24 18:46 Temperature Pulse Rate 63 67 63 Respiratory Rate 25 H 24 H 25 H Blood Pressure 158/67 H 171/74 H 132/56 L Pulse Oximetry 92 93 91 Oxygen Delivery Oxygen Flow Rate 07/31/24 19:01 07/31/24 19:06 07/31/24 20:00 Temperature 98.3 F Pulse Rate 70 82 Respiratory Rate 29 H 17 Blood Pressure 142/54 H 175/66 H Pulse Oximetry 96 97 95 Oxygen Delivery Nasal Cannula Oxygen Flow Rate 2 07/31/24 20:00 07/31/24 20:00 07/31/24 22:00 Temperature Pulse Rate 75 75 72 Respiratory Rate 17 Blood Pressure Pulse Oximetry 95 Oxygen Delivery Nasal Cannula Oxygen Flow Rate 2 08/01/24 00:00 08/01/24 00:00 08/01/24 00:00 Temperature 98.0 F Pulse Rate 82 77 77 Respiratory Rate 16 16 Blood Pressure 166/66 H Pulse Oximetry 98 98 Oxygen Delivery Nasal Cannula Oxygen Flow Rate 2 08/01/24 00:15 08/01/24 01:44 08/01/24 03:24 Temperature Pulse Rate 68 70 66 Respiratory Rate 16 Blood Pressure Pulse Oximetry 98 Oxygen Delivery Nasal Cannula Oxygen Flow Rate 2 08/01/24 03:24 08/01/24 04:00 08/01/24 06:00 Temperature 98.2 F Pulse Rate 66 68 64 Respiratory Rate 17 Blood Pressure 153/70 H Pulse Oximetry 98 Oxygen Delivery Oxygen Flow Rate 08/01/24 07:42 08/01/24 08:00 08/01/24 08:00 Temperature 98.4 F Pulse Rate 68 65 Respiratory Rate 28 H Blood Pressure 149/62 H Pulse Oximetry 95 93 Oxygen Delivery Nasal Cannula Oxygen Flow Rate 2 08/01/24 08:43 08/01/24 09:04 08/01/24 10:00 Temperature Pulse Rate 68 87 Respiratory Rate Blood Pressure Pulse Oximetry 93 Oxygen Delivery Nasal Cannula Oxygen Flow Rate 1 08/01/24 11:49 Temperature 97.4 F L Pulse Rate 56 L Respiratory Rate 18 Blood Pressure 146/55 H Pulse Oximetry 94 Oxygen Delivery Oxygen Flow Rate Exam 2 Const: General: comfortable and no acute distress Nutritional Appearance: o verweight Orientation/consciousness: patient oriented x3 HENMT: Head: normocephalic and atraumatic Ears: hearing grossly normal bilaterally Mouth: Yes moist mucous membranes Eyes: General: appearance normal, both eyes and all related structures P upils: Equal, round and reactive pupils present Neck: Neck: normal visual inspection and full ROM Resp: Effort & Inspection: no respiratory distress Auscultation: clear to auscultation bilaterally Cardio: Rate: regular rate Rhythm: regular rhythm Peripheral pulses: P eripheral pulses 2+ throughout GI: Inspection: non-distended GI Palp: Yes Soft to palpation, No Tenderness to palpation present (GI), No Guarding due to palpation present (GI), Yes No hepatosplenomegaly present and No Rebound tenderness present Auscultation: n ormal bowel sounds Other: RUQ cholecystostomy tube with scant bilious drainage Skin: General skin exam: normal color Neuro: General: moves all extremities and no focal motor deficits Speech: n ormal speech Motor exam (neuro): 5/5 motor strength present throughout Extrem: General: normal to inspection and no edema Psych: Mental Status: mental status grossly normal Attitude: cooperative Insight: Good insight present (Psych) Judgement: Good judgement present (Psych) Results Labs 08/01/24 04:18 08/01/24 04:18 Labs: Abnormal lab results 07/31/24 07/31/24 07/31/24 Range/Units 14:52 14:54 16:03 WBC 22.9 H (4.5-10.0) K/mm3 RBC 3.34 L (4.2-5.4) M/mm3 Hgb 10.2 L (12.0-15.0) g/dL Hct 32.2 L (37.0-47.0) % MCHC 31.7 L (32-36) g/dl Plt Count 479 H (150-375) k/mm3 Immature Gran % (Auto) 0.6 H (0-0.5) % Neut % (Auto) 91.2 H (45.5-73.1) % Lymph % (Auto) 4.8 L (18.3-44.2) % Baso % (Auto) 0.1 L (0.2-1.2) % [place] # (Auto) 0.8 H (0.1-0.6) K/mm3 Abs Immat Gran (auto) 0.14 H (0.00-0.031) K/mm3 Absolute Neuts (auto) 20.9 H (1.3-6.7) K/mm3 PT 49.2 H D (11.1-14.7) Seconds INR 5.3 H* APTT 41.3 H (22.3-36.8) Seconds Sodium 136 L (137-145) mmol/L Chloride (98-107) mmol/L Carbon Dioxide 20 L (22-30) mmol/L BUN 23 H (7-17) mg/dL Creatinine 1.20 H (0.7-1.0) mg/dL Estimated GFR 43 L (59 - ) Glucose 161 H (65-110) mg/dL Calcium (8.4-10.2) mg/dL AST 39 H (14-36) U/L Total Protein 6.0 L (6.3-8.2) g/dL Lipase 631 H (23-300) U/L Ur Specific [place] 1.044 H (1.001-1.035) Urine Protein 3+ H (Negative) mg/dL Urine Ketones Trace H (Negative) mg/dL 08/01/24 Range/Units 04:18 WBC 22.9 H (4.5-10.0) K/mm3 RBC 2.81 L (4.2-5.4) M/mm3 Hgb 8.7 L (12.0-15.0) g/dL Hct 27.2 L (37.0-47.0) % MCHC (32-36) g/dl Plt Count (150-375) k/mm3 Immature Gran % (Auto) 0.8 H (0-0.5) % Neut % (Auto) 90.3 H (45.5-73.1) % Lymph % (Auto) 4.6 L (18.3-44.2) % Baso % (Auto) 0.1 L (0.2-1.2) % [place] # (Auto) 1.0 H (0.1-0.6) K/mm3 Abs Immat Gran (auto) 0.18 H (0.00-0.031) K/mm3 Absolute Neuts (auto) 20.7 H (1.3-6.7) K/mm3 PT 50.6 H (11.1-14.7) Seconds INR 5.5 H* APTT 91.7 H (22.3-36.8) Seconds Sodium (137-145) mmol/L Chloride 109 H (98-107) mmol/L Carbon Dioxide 21 L (22-30) mmol/L BUN (7-17) mg/dL Creatinine 1.07 H (0.7-1.0) mg/dL Estimated GFR 49 L (59 - ) Glucose (65-110) mg/dL Calcium 8.2 L (8.4-10.2) mg/dL AST (14-36) U/L Total Protein (6.3-8.2) g/dL Lipase (23-300) U/L Ur Specific [place] (1.001-1.035) Urine Protein (Negative) mg/dL Urine Ketones (Negative) mg/dL Diabetes panel 07/31/24 08/01/24 Range/Units 14:54 04:18 Sodium 136 L 138 (137-145) mmol/L Potassium 4.3 4.4 (3.4-5.0) mmol/L Chloride 107 109 H (98-107) mmol/L Carbon Dioxide 20 L 21 L (22-30) mmol/L BUN 23 H 17 (7-17) mg/dL Creatinine 1.20 H 1.07 H (0.7-1.0) mg/dL Glucose 161 H 91 (65-110) mg/dL Calcium 8.6 8.2 L (8.4-10.2) mg/dL AST 39 H (14-36) U/L ALT 33 (6-35) U/L Alkaline Phosphatase 88 (38-126) U/L Total Protein 6.0 L (6.3-8.2) g/dL Albumin 3.6 (3.5-5.1) g/dL Calcium panel 07/31/24 08/01/24 Range/Units 14:54 04:18 Calcium 8.6 8.2 L (8.4-10.2) mg/dL Albumin 3.6 (3.5-5.1) g/dL Pituitary panel 07/31/24 08/01/24 Range/Units 14:54 04:18 Sodium 136 L 138 (137-145) mmol/L Potassium 4.3 4.4 (3.4-5.0) mmol/L Chloride 107 109 H (98-107) mmol/L Carbon Dioxide 20 L 21 L (22-30) mmol/L BUN 23 H 17 (7-17) mg/dL Creatinine 1.20 H 1.07 H (0.7-1.0) mg/dL Glucose 161 H 91 (65-110) mg/dL Calcium 8.6 8.2 L (8.4-10.2) mg/dL Adrenal panel 07/31/24 08/01/24 Range/Units 14:54 04:18 Sodium 136 L 138 (137-145) mmol/L Potassium 4.3 4.4 (3.4-5.0) mmol/L Chloride 107 109 H (98-107) mmol/L Carbon Dioxide 20 L 21 L (22-30) mmol/L BUN 23 H 17 (7-17) mg/dL Creatinine 1.20 H 1.07 H (0.7-1.0) mg/dL Glucose 161 H 91 (65-110) mg/dL Calcium 8.6 8.2 L (8.4-10.2) mg/dL Total Bilirubin 0.4 (0.2-1.3) mg/dL AST 39 H (14-36) U/L ALT 33 (6-35) U/L Alkaline Phosphatase 88 (38-126) U/L Total Protein 6.0 L (6.3-8.2) g/dL Albumin 3.6 (3.5-5.1) g/dL All other labs normal. Imaging Additional studies: ITS Impressions Abdomen/Pelvis CT 07/31/24 15:50 IMPRESSION: Findings at the level of the right common femoral vein for which thrombus is suspected. Findings within the bladder for which cystitis is suspected. Free fluid within the deep pelvis. Redemonstration of a percutaneous cholecystostomy, in good position within the gallbladder which is now decompressed with persistent surrounding inflammatory change. Venous Doppler Study 07/31/24 17:26 IMPRESSION: Negative right lower extremity venous US. No deep vein thrombosis.
[2024-08-01 16:52] LABS: Glucose Point of Care 120 mg/dl (65-105)
--- NOTE | 2024-08-01 17:28 | P.PNIM_ITS ---
Progress Note: A&P Assessment and Plan (1) Abdominal pain: Code(s): R10.9 - Unspecified abdominal pain Status: Acute Assessment and Plan: Could be due to constipation versus infection versus bile leak Pain medications (2) Cholecystitis: Code(s): K81.9 - Cholecystitis, unspecified Status: Acute Assessment and Plan: Status post perc abby tube Surgery consulted pending recommendations NPO midnight for possible procedure (3) Constipation: Code(s): K59.00 - Constipation, unspecified Status: Acute Assessment and Plan: Fecal stasis of the ascending colon Aggressive bowel protocol Will need to be on home bowel protocol when discharge (4) Leukocytosis: Code(s): D72.829 - Elevated white blood cell count, unspecified Status: Acute Assessment and Plan: Blood cultures pending UA negative IV Zosyn for possible intra-abdominal infection (5) Supratherapeutic INR: Code(s): R79.1 - Abnormal coagulation profile Status: Acute Assessment and Plan: Daily INR let naturally trend down Currently Holding warfarin, patient was taking 8 mg (6) Anemia: Code(s): D64.9 - Anemia, unspecified Status: Acute Assessment and Plan: At baseline No signs of acute bleeding Daily CBC Transfuse if less than 7 (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 HS SSI Hold home metformin (8) Paroxysmal atrial fibrillation: Code(s): I48.0 - Paroxysmal atrial fibrillation Status: Chronic Assessment and Plan: Currently holding warfarin INR in a.m. (9) CHF (congestive heart failure): Qualifiers: Heart failure chronicity: chronic Heart failure type: diastolic Qualified Code(s): I50.32 - Chronic diastolic (congestive) heart failure Code(s): I50.9 - Heart failure, unspecified Status: Acute Assessment and Plan: Restart p.o. Lasix Q 48 hours and spironolactone daily (10) HTN (hypertension): Qualifiers: Hypertension type: essential hypertension Qualified Code(s): I10 - Essential (primary) hypertension Code(s): I10 - Essential (primary) hypertension Status: Chronic Assessment and Plan: Continue amlodipine Plan patient presented with abdominal pain s/p cholecystostomy tube on last admission, CT of abdomen showed tube in correct position, seen by surgery ser vice will have further evaluation with cholecystostomy tube to check of any leaks and inflammation, patient c/o boating and not passing gas KUB is normal, will give miralax to help with BM. Subjective Date/time seen: 08/01/24 17:28 Interval history: Abdominal pain H&P-Narrative: 3-year-old female past medical history of CKD stage 4, diabetes, PR, cholecystitis with a coli tube presents the hospital with abdominal pain. Patient states that ever since she has had health problems. And she is tired of being in hospital. She states that her coli tube is been working well since she has left the hospital. However today she knows that she had very little output and she had increasing abdominal pain on her right side of her abdomen. She became concerned about her per coli tube so she came into the hospital. In the ED her blood work shows leukocytosis at 22.9, anemia at 10.2, INR of 5.3, creatinine of 1.2, AST of 39, lipase of 631, urine noninfective. CT of the abdomen shows Findings at the level of the right common femoral vein for which thrombus is suspected. Findings within the bladder for which cystitis is suspected. Free fluid within the deep pelvis. Redemonstration of a percutaneous cholecystostomy, in good position within the gallbladder which is now decompressed with persistent surrounding inflammatory change.Fecal stasis within the colon. Venous Doppler negative for DVT. Patient was given fluid bolus and started on Zosyn in the ED. general surgery was consulted. patient presented with abdominal pain s/p cholecystostomy tube on last admission, CT of abdomen showed tube in correct position, seen by surgery service will have further evaluation with cholecystostomy tube to check of any leaks and inflammation, patient c/o boating and not passing gas KUB is normal, will give miralax to help with BM. Review of Systems Review of Systems: 12 systems were reviewed and are negativ e except for as per HPI. Exam Narrative: Patient is comfortable, NAD HEENT: eyes are clear and none icteric LUNGS:CTA HEART: RR S1S2 ABD: Bowel sounds are faint Lower extremities: no edema SKIN: nonjaundiced Neuro: grossly intact. Objective Data Vital Signs Vital Signs: Vital Signs - 24 hr 07/31/24 17:31 07/31/24 18:01 07/31/24 18:46 Temperature Pulse Rate 63 67 63 Respiratory Rate 25 H 24 H 25 H Blood Pressure 158/67 H 171/74 H 132/56 L Pulse Oximetry 92 93 91 Oxygen Delivery Oxygen Flow Rate 07/31/24 19:01 07/31/24 19:06 07/31/24 20:00 Temperature 36.8 C Pulse Rate 70 82 Respiratory Rate 29 H 17 Blood Pressure 142/54 H 175/66 H Pulse Oximetry 96 97 95 Oxygen Delivery Nasal Cannula Oxygen Flow Rate 2 07/31/24 20:00 07/31/24 20:00 07/31/24 22:00 Temperature Pulse Rate 75 75 72 Respiratory Rate 17 Blood Pressure Pulse Oximetry 95 Oxygen Delivery Nasal Cannula Oxygen Flow Rate 2 08/01/24 00:00 08/01/24 00:00 08/01/24 00:00 Temperature 36.7 C Pulse Rate 82 77 77 Respiratory Rate 16 16 Blood Pressure 166/66 H Pulse Oximetry 98 98 Oxygen Delivery Nasal Cannula Oxygen Flow Rate 2 08/01/24 00:15 08/01/24 01:44 08/01/24 03:24 Temperature Pulse Rate 68 70 66 Respiratory Rate 16 Blood Pressure Pulse Oximetry 98 Oxygen Delivery Nasal Cannula Oxygen Flow Rate 2 08/01/24 03:24 08/01/24 04:00 08/01/24 06:00 Temperature 36.8 C Pulse Rate 66 68 64 Respiratory Rate 17 Blood Pressure 153/70 H Pulse Oximetry 98 Oxygen Delivery Oxygen Flow Rate 08/01/24 07:42 08/01/24 08:00 08/01/24 08:00 Temperature 36.9 C Pulse Rate 68 65 Respiratory Rate 28 H Blood Pressure 149/62 H Pulse Oximetry 95 93 Oxygen Delivery Nasal Cannula Oxygen Flow Rate 2 08/01/24 08:43 08/01/24 09:04 08/01/24 10:00 Temperature Pulse Rate 68 87 Respiratory Rate Blood Pressure Pulse Oximetry 93 Oxygen Delivery Nasal Cannula Oxygen Flow Rate 1 08/01/24 11:49 08/01/24 15:53 Temperature 36.3 C L 36.6 C Pulse Rate 56 L 96 Respiratory Rate 18 20 Blood Pressure 146/55 H 158/55 H Pulse Oximetry 94 95 Oxygen Delivery Oxygen Flow Rate Intake/Output Intake/Output: Intake & Output 07/29/24 07/30/24 07/31/24 08/01/24 23:59 23:59 23:59 23:59 Intake Total 1050 2549.6 Output Total 100 1490 Balance 950 1059.6 Meds/Results Medications: Active Medications Generic Name Dose Route Start Last Admin Trade Name Freq PRN Reason Stop Dose Admin Acetaminophen 650 mg 07/31/24 17:02 Acetaminophen 325 Mg Tablet PO Q4H PRN Mild Pain (1-3) or Fever Hydrocodone Bitart/Acetaminophen 1 tab 07/31/24 17:02 08/01/24 09:03 Hydrocodone/Acetaminophen (*Crx) 5-325 Mg Tablet PO 1 tab Q4H PRN Administration Pain Rated 4-6 Albuterol 2 puff 07/31/24 22:43 Albuterol Sulfate (*Sp) Aerosol 1 Puff INHALATION Q6HRT PRN shortness of breath or wheezing Amlodipine Besylate 10 mg 08/01/24 09:00 08/01/24 09:04 Amlodipine Besylate 10 Mg Tablet PO 10 mg DAILY SAMUEL Administration Aspirin 81 mg 08/01/24 09:00 08/01/24 09:04 Aspirin 81 Mg Enteric Tablet PO 81 mg DAILY SAMUEL Administration Atorvastatin Calcium 80 mg 07/31/24 22:50 08/01/24 00:15 Atorvastatin 40 Mg Tablet PO 80 mg QHS SAMUEL Administration Citalopram Hydrobromide 10 mg 08/01/24 09:00 08/01/24 09:06 Citalopram Hydrobromide 10 Mg Tablet PO 10 mg DAILY SAMUEL Administration Dextrose 12.5 gm 07/31/24 19:00 Dextrose 50% 25 Gm/50 Ml Syringe IV PUSH PRN PRN Hypoglycemia Protocol Ferrous Sulfate 325 mg 08/01/24 09:00 08/01/24 09:05 Ferrous Sulfate [address] PO 325 mg DAILY SAMUEL Administration Furosemide 20 mg 08/01/24 18:00 Furosemide Inj 40 Mg/4 Ml Vial IV PUSH 08/01/24 18:01 ONCE ONE Glucagon 1 mg 07/31/24 19:00 Glucagon For Inj 1 Mg Vial IM PRN PRN Hypoglycemia Protocol Glucose 15 gm 07/31/24 19:00 Glucose Oral Gel 15 Gm Of Glucse In 37.5 Gm Tube PO PRN PRN Hypoglycemia Protocol Piperacillin Sod/Tazobactam Sod 2.25 gm in 50 mls @ 100 mls/hr 08/01/24 00:00 08/01/24 17:11 Zosyn 2.25 Gm/Ns 50 Ml IVPB 100 mls/hr Q6HR SAMUEL Administration Dextrose 1,000 mls @ 100 mls/hr 07/31/24 19:00 Dextrose 5% 1,000 Ml IVPB PRN PRN Hypoglycemia Protocol Insulin Aspart 2 - 5 units 08/01/24 08:00 08/01/24 17:11 Insulin Aspart (*Bkc) 100 Units/Ml SUB-Q Not Given TIDWM SAMUEL Protocol Insulin Aspart 1 - 2 units 07/31/24 21:00 07/31/24 21:55 Insulin Aspart (*Bkc) 100 Units/Ml SUB-Q Not Given HS SAMUEL Protocol Latanoprost 1 drop 07/31/24 22:55 08/01/24 00:15 Latanoprost 0.005% Op Soln 2.5 Ml Btl EACH EYE 1 drop HS SAMUEL Administration Loratadine 10 mg 08/01/24 09:00 08/01/24 09:05 Loratadine 10 Mg Tablet PO 10 mg DAILY SAMUEL Administration Metoprolol Tartrate 25 mg 07/31/24 22:55 08/01/24 09:04 Metoprolol Tartrate 25 Mg Tablet PO 25 mg Q12HR SAMUEL Administration Morphine Sulfate 2 mg 07/31/24 17:02 08/01/24 00:23 Morphine Sulfate (*Crx) 2 Mg/Ml Inj IV PUSH 2 mg Q2H PRN Administration Pain Rated 7-10 Ondansetron HCl 4 mg 07/31/24 17:02 Ondansetron Inj 4 Mg/2 Ml Vial IV PUSH Q4H PRN Nausea Polyethylene Glycol 17 gm 08/01/24 16:43 Polyethylene Glycol 3350 17 Gm Powd.Pack PO QAM PRN Constipation Radiology Results: ITS Impressions Abdomen/Pelvis CT 07/31/24 15:50 IMPRESSION: Findings at the level of the right common femoral vein for which thrombus is suspected. Findings within the bladder for which cystitis is suspected. Free fluid within the deep pelvis. Redemonstration of a percutaneous cholecystostomy, in good position within the gallbladder which is now decompressed with persistent surrounding inflammatory change. Venous Doppler Study 07/31/24 17:26 IMPRESSION: Negative right lower extremity venous US. No deep vein thrombosis. Abdomen X-Ray 08/01/24 16:10 IMPRESSION: Nonspecific, nonobstructive bowel gas pattern, as detailed above. Labs Labs: Laboratory Results - last 24 hr 08/01/24 08/01/24 08/01/24 04:18 07:40 11:37 WBC 22.9 H RBC 2.81 L Hgb 8.7 L Hct 27.2 L MCV 96.8 MCH 31.0 MCHC 32.0 RDW 13.8 Plt Count 343 MPV 9.4 Immature Gran % (Auto) 0.8 H Neut % (Auto) 90.3 H Lymph % (Auto) 4.6 L Braxton % (Auto) 4.2 Eos % (Auto) 0.0 Baso % (Auto) 0.1 L Lymph # (Auto) 1.06 Braxton # (Auto) 1.0 H Eos # (Auto) 0.0 Baso # (Auto) 0.0 Abs Immat Gran (auto) 0.18 H Absolute Neuts (auto) 20.7 H Absolute Nucleated RBC 0.000 Band Neutrophils % 0 Nucleated RBC % 0.0 Platelet Estimate Adequate Anisocytosis 1+ Ovalocytes 1+ Schistocytes None seen PT 50.6 H INR 5.5 H* APTT 91.7 H Sodium 138 Potassium 4.4 Chloride 109 H Carbon Dioxide 21 L Anion Gap 8 BUN 17 Creatinine 1.07 H Estim Creat Clear Calc 37 Estimated GFR 49 L Glucose 91 POC Capillary Glucose 87 86 Calcium 8.2 L 08/01/24 15:44 WBC RBC Hgb Hct MCV MCH MCHC RDW Plt Count MPV Immature Gran % (Auto) Neut % (Auto) Lymph % (Auto) Braxton % (Auto) Eos % (Auto) Baso % (Auto) Lymph # (Auto) Braxton # (Auto) Eos # (Auto) Baso # (Auto) Abs Immat Gran (auto) Absolute Neuts (auto) Absolute Nucleated RBC Band Neutrophils % Nucleated RBC % Platelet Estimate Anisocytosis Ovalocytes Schistocytes PT INR APTT Sodium Potassium Chloride Carbon Dioxide Anion Gap BUN Creatinine Estim Creat Clear Calc Estimated GFR Glucose POC Capillary Glucose 120 H Calcium Quality VTE Prophylaxis VTE prophylaxis: mechanical ordered
[2024-08-01 21:34] LABS: Glucose Point of Care 117 mg/dl (65-105)
[2024-08-02] VITALS (19 sets, daily range): BP systolic 143–178; BP diastolic 53–64; PULSE 49–58; RESP 18–20; TEMP 36.7–36.9; O2SAT 93–98
[2024-08-02] MEDS: PIPERACILLIN/TAZ 2.25G/NS 50ML 2.25 GM/50 ML BAG IVPB ×4 (00:32→17:46)
[2024-08-02 04:18] LABS: Hematocrit 26.5 % (37.0-47.0); Hemoglobin 8.5 g/dL (12.0-15.0); Mean Corpuscular HGB Conc 32.1 g/dl (32-36); Mean Corpuscular Hemoglobin 30.7 pg (26-34); Mean Corpuscular Volume 95.7 fl (80-100); Mean Platelet Volume 9.2 fl (7.4-10.4); Platelet Count Result 280 k/mm3 (150-375); Red Blood Count 2.77 M/mm3 (4.2-5.4); White Blood Count 9.4 K/mm3 (4.5-10.0)
[2024-08-02 04:33] LABS: Prothrombin Time 55.2 Seconds (11.1-14.7)
[2024-08-02 04:35] LABS: Magnesium 1.5 mg/dL (1.6-2.3)
[2024-08-02 04:43] LABS: INR 6.1
[2024-08-02 07:55] LABS: Glucose Point of Care 89 mg/dl (65-105)
[2024-08-02] MEDS: METOPROLOL TARTRATE 25 MG TABLET PO ×2 (09:18→20:40)
[2024-08-02] MEDS: LORATADINE 10 MG TABLET PO (09:18)
[2024-08-02] MEDS: CITALOPRAM HYDROBROMIDE 10 MG TABLET PO (09:18)
[2024-08-02] MEDS: FERROUS SULFATE 325 MG TABLET DR PO (09:18)
[2024-08-02] MEDS: amLODIPine BESYLATE 10 MG TABLET PO (09:19)
--- NOTE | 2024-08-02 10:56 | PM.PNGS ---
Progress Note: A&P Assessment and Plan (1) Cholecystitis: Code(s): K81.9 - Cholecystitis, unspecified Status: Acute Assessment and Plan: exam now benign, will get cholangiogram to further evaluate, ok to cont low fat diet Subjective Subjective Date/Time Seen: 08/02/24 10:56 Interval history: feels much better, no further pain, tati diet Review of Systems Review of Systems: All systems reviewed & are unremarkable except as noted in HPI and below Exam Const: General: cooperative, comfortable and no acute distress Resp: Auscultation: clear to auscultation bilaterally Cardio: Rate: regular rate Rhythm: regular rhythm GI: Inspection: normal to inspection and non-distended GI Palp: No abdominal tenderness and Yes Soft to palpation Other: abby drain c bilious drainage Objective Data Vital Signs Vital Signs: Vital Signs - 24 hr 08/01/24 11:49 08/01/24 12:00 08/01/24 12:00 Temperature 36.3 C L Pulse Rate 56 L 58 L Respiratory Rate 18 Blood Pressure 146/55 H Pulse Oximetry 94 96 Oxygen Delivery Room Air Fraction of Inspired Oxygen 08/01/24 14:00 08/01/24 15:53 08/01/24 16:00 Temperature 36.6 C Pulse Rate 60 96 60 Respiratory Rate 20 Blood Pressure 158/55 H Pulse Oximetry 95 Oxygen Delivery Fraction of Inspired Oxygen 08/01/24 16:00 08/01/24 18:00 08/01/24 20:00 Temperature Pulse Rate 61 60 Respiratory Rate Blood Pressure Pulse Oximetry 95 Oxygen Delivery Room Air Fraction of Inspired Oxygen 08/01/24 20:38 08/01/24 20:48 08/01/24 22:00 Temperature 37.2 C Pulse Rate 63 61 Respiratory Rate 15 20 Blood Pressure 179/63 H Pulse Oximetry 94 92 Oxygen Delivery Room Air Room Air Fraction of Inspired Oxygen 21 08/01/24 22:00 08/01/24 22:04 08/01/24 23:38 Temperature 36.8 C Pulse Rate 59 L 64 58 L Respiratory Rate 16 Blood Pressure 162/60 H Pulse Oximetry 94 Oxygen Delivery Fraction of Inspired Oxygen 08/02/24 00:00 08/02/24 00:30 08/02/24 02:00 Temperature Pulse Rate 58 L 52 L Respiratory Rate Blood Pressure Pulse Oximetry Oxygen Delivery Room Air Fraction of Inspired Oxygen 08/02/24 04:00 08/02/24 04:00 08/02/24 04:24 Temperature 36.9 C Pulse Rate 49 L 56 L Respiratory Rate 18 Blood Pressure 173/59 H Pulse Oximetry 95 Oxygen Delivery Room Air Fraction of Inspired Oxygen 08/02/24 06:00 08/02/24 07:57 08/02/24 09:18 Temperature 36.7 C Pulse Rate 55 L 51 L 55 L Respiratory Rate 20 Blood Pressure 178/61 H Pulse Oximetry 94 Oxygen Delivery Fraction of Inspired Oxygen Intake/Output Intake/Output: Intake & Output 07/30/24 07/31/24 08/01/24 08/02/24 23:59 23:59 23:59 23:59 Intake Total 1050 2839.6 250 Output Total 100 1530 560 Balance 950 1309.6 -310 Meds/Results Medications: Active Medications Generic Name Dose Route Start Last Admin Trade Name Freq PRN Reason Stop Dose Admin Acetaminophen 650 mg 07/31/24 17:02 Acetaminophen 325 Mg Tablet PO Q4H PRN Mild Pain (1-3) or Fever Hydrocodone Bitart/Acetaminophen 1 tab 07/31/24 17:02 08/01/24 09:03 Hydrocodone/Acetaminophen (*Crx) 5-325 Mg Tablet PO 1 tab Q4H PRN Administration Pain Rated 4-6 Albuterol 2 puff 07/31/24 22:43 Albuterol Sulfate (*Sp) Aerosol 1 Puff INHALATION Q6HRT PRN shortness of breath or wheezing Amlodipine Besylate 10 mg 08/01/24 09:00 08/02/24 09:19 Amlodipine Besylate 10 Mg Tablet PO 10 mg DAILY SAMUEL Administration Aspirin 81 mg 08/01/24 09:00 08/01/24 09:04 Aspirin 81 Mg Enteric Tablet PO 81 mg DAILY SAMUEL Administration Atorvastatin Calcium 80 mg 07/31/24 22:50 08/01/24 22:03 Atorvastatin 40 Mg Tablet PO 80 mg QHS SAMUEL Administration Citalopram Hydrobromide 10 mg 08/01/24 09:00 08/02/24 09:18 Citalopram Hydrobromide 10 Mg Tablet PO 10 mg DAILY SAMUEL Administration Dextrose 12.5 gm 07/31/24 19:00 Dextrose 50% 25 Gm/50 Ml Syringe IV PUSH PRN PRN Hypoglycemia Protocol Ferrous Sulfate 325 mg 08/01/24 09:00 08/02/24 09:18 Ferrous Sulfate [address] PO 325 mg DAILY SAMUEL Administration Glucagon 1 mg 07/31/24 19:00 Glucagon For Inj 1 Mg Vial IM PRN PRN Hypoglycemia Protocol Glucose 15 gm 07/31/24 19:00 Glucose Oral Gel 15 Gm Of Glucse In 37.5 Gm Tube PO PRN PRN Hypoglycemia Protocol Piperacillin Sod/Tazobactam Sod 2.25 gm in 50 mls @ 100 mls/hr 08/01/24 00:00 08/02/24 07:30 Zosyn 2.25 Gm/Ns 50 Ml IVPB Infused Q6HR SAMUEL Infusion Dextrose 1,000 mls @ 100 mls/hr 07/31/24 19:00 Dextrose 5% 1,000 Ml IVPB PRN PRN Hypoglycemia Protocol Magnesium Sulfate 2 gm in 50 mls @ 50 mls/hr 08/02/24 10:39 Magnesium Sulf 2 Gm/Water 50ml IVPB 08/02/24 11:38 ONCE ONE Insulin Aspart 2 - 5 units 08/01/24 08:00 08/02/24 09:16 Insulin Aspart (*Bkc) 100 Units/Ml SUB-Q Not Given TIDWM [facility] Protocol Insulin Aspart 1 - 2 units 07/31/24 21:00 08/01/24 21:56 Insulin Aspart (*Bkc) 100 Units/Ml SUB-Q Not Given HS [facility] Protocol Latanoprost 1 drop 07/31/24 22:55 08/01/24 22:04 Latanoprost 0.005% Op Soln 2.5 Ml Btl EACH EYE 1 drop HS SAMUEL Administration Loratadine 10 mg 08/01/24 09:00 08/02/24 09:18 Loratadine 10 Mg Tablet PO 10 mg DAILY SAMUEL Administration Metoprolol Tartrate 25 mg 07/31/24 22:55 08/02/24 09:18 Metoprolol Tartrate 25 Mg Tablet PO 25 mg Q12HR SAMUEL Administration Morphine Sulfate 2 mg 07/31/24 17:02 08/01/24 00:23 Morphine Sulfate (*Crx) 2 Mg/Ml Inj IV PUSH 2 mg Q2H PRN Administration Pain Rated 7-10 Ondansetron HCl 4 mg 07/31/24 17:02 Ondansetron Inj 4 Mg/2 Ml Vial IV PUSH Q4H PRN Nausea Polyethylene Glycol 17 gm 08/01/24 16:43 Polyethylene Glycol 3350 17 Gm Powd.Pack PO QAM PRN Constipation Radiology Results: ITS Impressions Abdomen/Pelvis CT 07/31/24 15:50 IMPRESSION: Findings at the level of the right common femoral vein for which thrombus is suspected. Findings within the bladder for which cystitis is suspected. Free fluid within the deep pelvis. Redemonstration of a percutaneous cholecystostomy, in good position within the gallbladder which is now decompressed with persistent surrounding inflammatory change. Venous Doppler Study 07/31/24 17:26 IMPRESSION: Negative right lower extremity venous US. No deep vein thrombosis. Abdomen X-Ray 08/01/24 16:10 IMPRESSION: Nonspecific, nonobstructive bowel gas pattern, as detailed above. Labs Labs: Laboratory Results - last 24 hr 08/01/24 08/01/24 08/01/24 11:37 15:44 21:30 WBC RBC Hgb Hct MCV MCH MCHC RDW Plt Count MPV PT INR POC Capillary Glucose 86 120 H 117 H Magnesium 08/02/24 08/02/24 04:11 07:37 WBC 9.4 RBC 2.77 L Hgb 8.5 L Hct 26.5 L MCV 95.7 MCH 30.7 MCHC 32.1 RDW 14.0 Plt Count 280 MPV 9.2 PT 55.2 H INR 6.1 H* POC Capillary Glucose 89 Magnesium 1.5 L
[2024-08-02 11:25] LABS: Alanine Aminotransferase 24 U/L (6-35); Albumin Level 2.8 g/dL (3.5-5.1); Alkaline Phosphatase 75 U/L (38-126); Anion Gap 7 mmol/L (4-12); Aspartate Amino Transferase 29 U/L (14-36); Bilirubin,Total 0.6 mg/dL (0.2-1.3); Blood Urea Nitrogen 15 mg/dL (7-17); Calcium 8.3 mg/dL (8.4-10.2); Carbon Dioxide 21 mmol/L (22-30); Chloride 111 mmol/L (98-107); Estimated CRCL calculation 37 ml/min; Estimated Glomerular Filt Rate 48; Glucose 92 mg/dL (65-110); Potassium 3.9 mmol/L (3.4-5.0); Sodium 139 mmol/L (137-145)
[2024-08-02] MEDS: PHYTONADIONE 2.5 MG TAB PO (11:47)
[2024-08-02] MEDS: ASPIRIN 81 MG ENTERIC TABLET PO (11:47)
[2024-08-02] MEDS: MAGNESIUM SULF 2 GM/WATER 50ML 2 GM/50 ML BAG IVPB (11:49)
[2024-08-02] MEDS: PANTOPRAZOLE 40 MG TABLET PO (11:54)
[2024-08-02 14:18] LABS: Glucose Point of Care 116 mg/dl (65-105)
--- NOTE | 2024-08-02 14:37 | PM.IMPN ---
Progress Note: A&P Assessment and Plan (1) Abdominal pain: Code(s): R10.9 - Unspecified abdominal pain Status: Acute Assessment and Plan: Could be due to constipation versus infection versus bile leak Pain medications (2) Cholecystitis: Code(s): K81.9 - Cholecystitis, unspecified Status: Acute Assessment and Plan: Status post perc abby tube Surgery consulted pending recommendations NPO midnight for possible procedure (3) Constipation: Code(s): K59.00 - Constipation, unspecified Status: Acute Assessment and Plan: Fecal stasis of the ascending colon Aggressive bowel protocol Will need to be on home bowel protocol when discharge (4) Leukocytosis: Code(s): D72.829 - Elevated white blood cell count, unspecified Status: Acute Assessment and Plan: Blood cultures pending UA negative IV Zosyn for possible intra-abdominal infection (5) Supratherapeutic INR: Code(s): R79.1 - Abnormal coagulation profile Status: Acute Assessment and Plan: Daily INR let naturally trend down Currently Holding warfarin, patient was taking 8 mg (6) Anemia: Code(s): D64.9 - Anemia, unspecified Status: Acute Assessment and Plan: At baseline No signs of acute bleeding Daily CBC Transfuse if less than 7 (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 HS SSI Hold home metformin (8) Paroxysmal atrial fibrillation: Code(s): I48.0 - Paroxysmal atrial fibrillation Status: Chronic Assessment and Plan: Currently holding warfarin INR in a.m. (9) CHF (congestive heart failure): Qualifiers: Heart failure chronicity: chronic Heart failure type: diastolic Qualified Code(s): I50.32 - Chronic diastolic (congestive) heart failure Code(s): I50.9 - Heart failure, unspecified Status: Acute Assessment and Plan: Restart p.o. Lasix Q 48 hours and spironolactone daily (10) HTN (hypertension): Qualifiers: Hypertension type: essential hypertension Qualified Code(s): I10 - Essential (primary) hypertension Code(s): I10 - Essential (primary) hypertension Status: Chronic Assessment and Plan: Continue amlodipine Plan patient presented with abdominal pain s/p cholecystostomy tube on last admission, CT of abdomen showed tube in correct position, seen by surgery service will have further evaluation with cholecystostomy tube to check of any leaks and inflammation, patient c/o boating and not passing gas KUB is normal, will give miralax to help with BM. today patient clinical symptoms are improving, patient had cholangiogram which showed distal loop of the percutaneous cholecystostomy tube along with a few gallstones within the fundus of the decompressed gallbladder with patent cystic and common bile ducts. seen by surgery service and started patient on low fat diet, will monitor. Subjective Date/time seen: 08/02/24 14:37 Interval history: Abdominal pain H&P-Narrative: 3-year-old female past medical history of CKD stage 4, diabetes, [place], cholecystitis with a coli tube presents the hospital with abdominal pain. Patient states that ever since [place] she has had health problems. And she is tired of being in hospital. She states that her coli tube is been working well since she has left the hospital. However today she knows that she had very little output and she had increasing abdominal pain on her right side of her abdomen. She became concerned about her per coli tube so she came into the hospital. In the ED her blood work shows leukocytosis at 22.9, anemia at 10.2, INR of 5.3, creatinine of 1.2, AST of 39, lipase of 631, urine noninfective. CT of the abdomen shows Findings at the level of the right common femoral vein for which thrombus is suspected. Findings within the bladder for which cystitis is suspected. Free fluid within the deep pelvis. Redemonstration of a percutaneous cholecystostomy, in good position within the gallbladder which is now decompressed with persistent surrounding inflammatory change.Fecal stasis within the colon. Venous Doppler negative for DVT. Patient was given fluid bolus and started on Zosyn in the ED. general surgery was consulted. patient presented with abdominal pain s/p cholecystostomy tube on last admission, CT of abdomen showed tube in correct position, seen by surgery service will have further evaluation with cholecystostomy tube to check of any leaks and inflammation, patient c/o boating and not passing gas KUB is normal, will give miralax to help with BM. today patient clinical symptoms are improving, patient had cholangiogram which showed distal loop of the percutaneous cholecystostomy tube along with a few gallstones within the fundus of the decompressed gallbladder with patent cystic and common bile ducts. seen by surgery service and started patient on low fat diet, will monitor. Review of Systems Review of Systems: 12 systems were reviewed and are negative except for as per HPI. Exam Narrative: Patient is comfortable, NAD HEENT: eyes are clear and none icteric LUNGS:CTA HEART: RR S1S2 ABD: Bowel sounds are faint Lower extremities: no edema SKIN: nonjaundiced Neuro: grossly intact. Objective Data Vital Signs Vital Signs: Vital Signs - 24 hr 08/01/24 15:53 08/01/24 16:00 08/01/24 16:00 Temperature 36.6 C Pulse Rate 96 60 Respiratory Rate 20 Blood Pressure 158/55 H Pulse Oximetry 95 95 Oxygen Delivery Room Air Fraction of Inspired Oxygen 08/01/24 18:00 08/01/24 20:00 08/01/24 20:38 Temperature 37.2 C Pulse Rate 61 60 63 Respiratory Rate 15 Blood Pressure 179/63 H Pulse Oximetry 94 Oxygen Delivery Fraction of Inspired Oxygen 08/01/24 20:48 08/01/24 22:00 08/01/24 22:00 Temperature Pulse Rate 61 59 L Respiratory Rate 20 Blood Pressure Pulse Oximetry 92 Oxygen Delivery Room Air Room Air Fraction of Inspired Oxygen 21 08/01/24 22:04 08/01/24 23:38 08/02/24 00:00 Temperature 36.8 C Pulse Rate 64 58 L 58 L Respiratory Rate 16 Blood Pressure 162/60 H Pulse Oximetry 94 Oxygen Delivery Fraction of Inspired Oxygen 08/02/24 00:30 08/02/24 02:00 08/02/24 04:00 Temperature Pulse Rate 52 L 49 L Respiratory Rate Blood Pressure Pulse Oximetry Oxygen Delivery Room Air Fraction of Inspired Oxygen 08/02/24 04:00 08/02/24 04:24 08/02/24 06:00 Temperature 36.9 C Pulse Rate 56 L 55 L Respiratory Rate 18 Blood Pressure 173/59 H Pulse Oximetry 95 Oxygen Delivery Room Air Fraction of Inspired Oxygen 08/02/24 07:57 08/02/24 08:25 08/02/24 09:18 Temperature 36.7 C Pulse Rate 51 L 52 L 55 L Respiratory Rate 20 Blood Pressure 178/61 H Pulse Oximetry 94 Oxygen Delivery Fraction of Inspired Oxygen 08/02/24 10:00 08/02/24 11:45 Temperature 36.7 C Pulse Rate 58 L 55 L Respiratory Rate 20 Blood Pressure 167/57 H Pulse Oximetry 93 Oxygen Delivery Fraction of Inspired Oxygen Intake/Output Intake/Output: Intake & Output 07/30/24 07/31/24 08/01/24 08/02/24 23:59 23:59 23:59 23:59 Intake Total 1050 2839.6 300 Output Total 100 1530 710 Balance 950 1309.6 -410 Meds/Results Medications: Active Medications Generic Name Dose Route Start Last Admin Trade Name Freq PRN Reason Stop Dose Admin Acetaminophen 650 mg 07/31/24 17:02 Acetaminophen 325 Mg Tablet PO Q4H PRN Mild Pain (1-3) or Fever Hydrocodone Bitart/Acetaminophen 1 tab 07/31/24 17:02 08/01/24 09:03 Hydrocodone/Acetaminophen (*Crx) 5-325 Mg Tablet PO 1 tab Q4H PRN Administration Pain Rated 4-6 Albuterol 2 puff 07/31/24 22:43 Albuterol Sulfate (*Sp) Aerosol 1 Puff INHALATION Q6HRT PRN shortness of breath or wheezing Amlodipine Besylate 10 mg 08/01/24 09:00 08/02/24 09:19 Amlodipine Besylate 10 Mg Tablet PO 10 mg DAILY SAMUEL Administration Aspirin 81 mg 08/01/24 09:00 08/02/24 11:47 Aspirin 81 Mg Enteric Tablet PO 81 mg DAILY SAMUEL Administration Atorvastatin Calcium 80 mg 07/31/24 22:50 08/01/24 22:03 Atorvastatin 40 Mg Tablet PO 80 mg QHS SAMUEL Administration Citalopram Hydrobromide 10 mg 08/01/24 09:00 08/02/24 09:18 Citalopram Hydrobromide 10 Mg Tablet PO 10 mg DAILY SAMUEL Administration Dextrose 12.5 gm 07/31/24 19:00 Dextrose 50% 25 Gm/50 Ml Syringe IV PUSH PRN PRN Hypoglycemia Protocol Ferrous Sulfate 325 mg 08/01/24 09:00 08/02/24 09:18 Ferrous Sulfate [address] PO 325 mg DAILY SAMUEL Administration Glucagon 1 mg 07/31/24 19:00 Glucagon For Inj 1 Mg Vial IM PRN PRN Hypoglycemia Protocol Glucose 15 gm 07/31/24 19:00 Glucose Oral Gel 15 Gm Of Glucse In 37.5 Gm Tube PO PRN PRN Hypoglycemia Protocol Piperacillin Sod/Tazobactam Sod 2.25 gm in 50 mls @ 100 mls/hr 08/01/24 00:00 08/02/24 12:50 Zosyn 2.25 Gm/Ns 50 Ml IVPB 100 mls/hr Q6HR SAMUEL Administration Dextrose 1,000 mls @ 100 mls/hr 07/31/24 19:00 Dextrose 5% 1,000 Ml IVPB PRN PRN Hypoglycemia Protocol Insulin Aspart 2 - 5 units 08/01/24 08:00 08/02/24 11:54 Insulin Aspart (*Bkc) 100 Units/Ml SUB-Q Not Given TIDWM [facility] Protocol Insulin Aspart 1 - 2 units 07/31/24 21:00 08/01/24 21:56 Insulin Aspart (*Bkc) 100 Units/Ml SUB-Q Not Given HS [facility] Protocol Latanoprost 1 drop 07/31/24 22:55 08/01/24 22:04 Latanoprost 0.005% Op Soln 2.5 Ml Btl EACH EYE 1 drop HS SAMUEL Administration Loratadine 10 mg 08/01/24 09:00 08/02/24 09:18 Loratadine 10 Mg Tablet PO 10 mg DAILY SAMUEL Administration Metoprolol Tartrate 25 mg 07/31/24 22:55 08/02/24 09:18 Metoprolol Tartrate 25 Mg Tablet PO 25 mg Q12HR SAMUEL Administration Morphine Sulfate 2 mg 07/31/24 17:02 08/01/24 00:23 Morphine Sulfate (*Crx) 2 Mg/Ml Inj IV PUSH 2 mg Q2H PRN Administration Pain Rated 7-10 Ondansetron HCl 4 mg 07/31/24 17:02 Ondansetron Inj 4 Mg/2 Ml Vial IV PUSH Q4H PRN Nausea Pantoprazole Sodium 40 mg 08/02/24 11:40 08/02/24 11:54 Pantoprazole 40 Mg Tablet PO 40 mg QAM SAMUEL Administration Polyethylene Glycol 17 gm 08/01/24 16:43 Polyethylene Glycol 3350 17 Gm Powd.Pack PO QAM PRN Constipation Radiology Results: ITS Impressions Abdomen/Pelvis CT 07/31/24 15:50 IMPRESSION: Findings at the level of the right common femoral vein for which thrombus is suspected. Findings within the bladder for which cystitis is suspected. Free fluid within the deep pelvis. Redemonstration of a percutaneous cholecystostomy, in good position within the gallbladder which is now decompressed with persistent surrounding inflammatory change. Venous Doppler Study 07/31/24 17:26 IMPRESSION: Negative right lower extremity venous US. No deep vein thrombosis. Abdomen X-Ray 08/01/24 16:10 IMPRESSION: Nonspecific, nonobstructive bowel gas pattern, as detailed above. Cholangiogram 08/02/24 12:08 IMPRESSION: 1. Distal loop of the percutaneous cholecystostomy tube along with a few gallstones within the fundus of the decompressed gallbladder with patent cystic and common bile ducts. Labs Labs: Laboratory Results - last 24 hr 08/01/24 08/01/24 08/02/24 15:44 21:30 04:09 WBC RBC Hgb Hct MCV MCH MCHC RDW Plt Count MPV PT INR Sodium 139 Potassium 3.9 Chloride 111 H Carbon Dioxide 21 L Anion Gap 7 BUN 15 Creatinine 1.10 H Estim Creat Clear Calc 37 Estimated GFR 48 L Glucose 92 POC Capillary Glucose 120 H 117 H Calcium 8.3 L Magnesium Total Bilirubin 0.6 AST 29 ALT 24 Alkaline Phosphatase 75 Total Protein 5.0 L Albumin 2.8 L 08/02/24 08/02/24 08/02/24 04:11 07:37 11:24 WBC 9.4 RBC 2.77 L Hgb 8.5 L Hct 26.5 L MCV 95.7 MCH 30.7 MCHC 32.1 RDW 14.0 Plt Count 280 MPV 9.2 PT 55.2 H INR 6.1 H* Sodium Potassium Chloride Carbon Dioxide Anion Gap BUN Creatinine Estim Creat Clear Calc Estimated GFR Glucose POC Capillary Glucose 89 116 H Calcium Magnesium 1.5 L Total Bilirubin AST ALT Alkaline Phosphatase Total Protein Albumin Quality VTE Prophylaxis VTE prophylaxis: mechanical ordered
[2024-08-02] MEDS: PANTOPRAZOLE SODIUM IV 40 MG VIAL IV PUSH (15:58)
[2024-08-02 15:59] LABS: Glucose Point of Care 138 mg/dl (65-105)
[2024-08-02] MEDS: ATORVASTATIN 40 MG TABLET 80 MG PO (20:39)
[2024-08-02] MEDS: LATANOPROST 0.005% OP SOLN 2.5 ML BTL 1 DROP EACH EYE (20:40)
[2024-08-02 21:08] LABS: Glucose Point of Care 160 mg/dl (65-105)
[2024-08-03] VITALS (13 sets, daily range): BP systolic 173–195; BP diastolic 59–68; PULSE 51–70; RESP 20–24; TEMP 36.7–36.8; O2SAT 95–100
[2024-08-03] MEDS: PIPERACILLIN/TAZ 2.25G/NS 50ML 2.25 GM/50 ML BAG IVPB ×3 (00:25→11:26)
[2024-08-03 04:22] LABS: Hematocrit 25.4 % (37.0-47.0); Hemoglobin 8.3 g/dL (12.0-15.0); Mean Corpuscular HGB Conc 32.7 g/dl (32-36); Mean Corpuscular Hemoglobin 30.9 pg (26-34); Mean Corpuscular Volume 94.4 fl (80-100); Mean Platelet Volume 9.5 fl (7.4-10.4); Platelet Count Result 273 k/mm3 (150-375); Red Blood Count 2.69 M/mm3 (4.2-5.4); Red Cell Distribution Width 13.9 % (11.5-14.5); White Blood Count 8.8 K/mm3 (4.5-10.0)
[2024-08-03 04:35] LABS: Prothrombin Time 23.5 Seconds (11.1-14.7)
[2024-08-03 04:36] LABS: Alanine Aminotransferase 25 U/L (6-35); Albumin Level 2.8 g/dL (3.5-5.1); Alkaline Phosphatase 79 U/L (38-126); Anion Gap 5 mmol/L (4-12); Aspartate Amino Transferase 27 U/L (14-36); Bilirubin,Total 0.6 mg/dL (0.2-1.3); Blood Urea Nitrogen 15 mg/dL (7-17); Calcium 8.1 mg/dL (8.4-10.2); Carbon Dioxide 21 mmol/L (22-30); Chloride 111 mmol/L (98-107); Estimated CRCL calculation 37 ml/min; Estimated Glomerular Filt Rate 48; Glucose 110 mg/dL (65-110); Magnesium 1.8 mg/dL (1.6-2.3); Potassium 3.5 mmol/L (3.4-5.0); Sodium 137 mmol/L (137-145)
[2024-08-03 08:37] LABS: Glucose Point of Care 101 mg/dl (65-105)
[2024-08-03] MEDS: ASPIRIN 81 MG ENTERIC TABLET PO (08:55)
[2024-08-03] MEDS: amLODIPine BESYLATE 10 MG TABLET PO (09:06)
[2024-08-03] MEDS: POTASSIUM CHLORIDE 20 MEQ PACKET (FOR LIQUID) 40 MEQ PO (09:06)
[2024-08-03] MEDS: FERROUS SULFATE 325 MG TABLET DR PO (09:06)
[2024-08-03] MEDS: LORATADINE 10 MG TABLET PO (09:06)
[2024-08-03] MEDS: CITALOPRAM HYDROBROMIDE 10 MG TABLET PO (09:07)
[2024-08-03] MEDS: PANTOPRAZOLE SODIUM IV 40 MG VIAL IV PUSH (09:07)
[2024-08-03] MEDS: METOPROLOL TARTRATE 25 MG TABLET PO (09:07)
[2024-08-03] MEDS: ACETAMINOPHEN 325 MG TABLET 650 MG PO (11:47)
[2024-08-03] MEDS: hydrALAZINE HCL 25 MG TABLET PO (11:48)
[2024-08-03 12:05] LABS: Glucose Point of Care 133 mg/dl (65-105)
--- NOTE | 2024-08-03 12:47 | PM.PNGS ---
Progress Note: A&P Assessment and Plan (1) Cholecystitis: Code(s): K81.9 - Cholecystitis, unspecified Status: Acute Assessment and Plan: cholangiogram reviewed, continue cholecystostomy tube this point, continue low-fat okay to discharge from surgical standpoint drain care, follow up as outpatient 2 weeks once discharged Subjective Subjective Date/Time Seen: 08/03/24 12:47 Interval history: feels good, tolerating diet, wants to go home Review of Systems Review of Systems: All systems reviewed & are unremarkable except as noted in HPI and below Exam Const: General: cooperative, comfortable and no acute distress Resp: Auscultation: clear to auscultation bilaterally Cardio: Rate: regular rate Rhythm: regular rhythm GI: Inspection: normal to inspection and non-distended GI Palp: No abdominal tenderness and Yes Soft to palpation Other: cholecystostomy tube with bilious drainage Objective Data Vital Signs Vital Signs: Vital Signs - 24 hr 08/02/24 14:00 08/02/24 16:00 08/02/24 16:00 Temperature 36.8 C Pulse Rate 58 L 56 L 56 L Respiratory Rate 20 Blood Pressure 162/63 H Pulse Oximetry 97 Oxygen Delivery 08/02/24 18:00 08/02/24 20:00 08/02/24 20:07 Temperature 36.8 C Pulse Rate 56 L 51 L 57 L Respiratory Rate 20 Blood Pressure 143/53 H Pulse Oximetry 98 Oxygen Delivery 08/02/24 20:40 08/02/24 20:40 08/02/24 22:00 Temperature Pulse Rate 57 L 52 L Respiratory Rate Blood Pressure Pulse Oximetry Oxygen Delivery Room Air 08/02/24 23:08 08/03/24 00:20 08/03/24 00:20 Temperature 36.8 C Pulse Rate 54 L 51 L Respiratory Rate 20 Blood Pressure 164/64 H Pulse Oximetry 94 Oxygen Delivery Room Air 08/03/24 02:00 08/03/24 04:00 08/03/24 04:00 Temperature Pulse Rate 52 L 70 Respiratory Rate Blood Pressure Pulse Oximetry Oxygen Delivery Room Air 08/03/24 05:10 08/03/24 06:00 08/03/24 07:53 Temperature 36.7 C 36.8 C Pulse Rate 56 L 52 L 62 Respiratory Rate 20 20 Blood Pressure 177/67 H 174/59 H Pulse Oximetry 96 96 Oxygen Delivery 08/03/24 08:00 08/03/24 09:07 08/03/24 10:00 Temperature Pulse Rate 56 L 62 57 L Respiratory Rate Blood Pressure Pulse Oximetry Oxygen Delivery 08/03/24 11:02 08/03/24 12:00 Temperature 36.7 C Pulse Rate 55 L Respiratory Rate 24 H Blood Pressure 195/60 H Pulse Oximetry 95 100 Oxygen Delivery Room Air Intake/Output Intake/Output: Intake & Output 07/31/24 08/01/24 08/02/24 08/03/24 23:59 23:59 23:59 23:59 Intake Total 1050 2839.6 1370 890 Output Total 100 1530 1390 Balance 950 1309.6 -20 890 Meds/Results Medications: Active Medications Generic Name Dose Route Start Last Admin Trade Name Freq PRN Reason Stop Dose Admin Acetaminophen 650 mg 07/31/24 17:02 08/03/24 11:47 Acetaminophen 325 Mg Tablet PO 650 mg Q4H PRN Administration Mild Pain (1-3) or Fever Hydrocodone Bitart/Acetaminophen 1 tab 07/31/24 17:02 08/01/24 09:03 Hydrocodone/Acetaminophen (*Crx) 5-325 Mg Tablet PO 1 tab Q4H PRN Administration Pain Rated 4-6 Albuterol 2 puff 07/31/24 22:43 Albuterol Sulfate (*Sp) Aerosol 1 Puff INHALATION Q6HRT PRN shortness of breath or wheezing Amlodipine Besylate 10 mg 08/01/24 09:00 08/03/24 09:06 Amlodipine Besylate 10 Mg Tablet PO 10 mg DAILY SAMUEL Administration Aspirin 81 mg 08/01/24 09:00 08/03/24 08:55 Aspirin 81 Mg Enteric Tablet PO 81 mg DAILY SAMUEL Administration Atorvastatin Calcium 80 mg 07/31/24 22:50 08/02/24 20:39 Atorvastatin 40 Mg Tablet PO 80 mg QHS SAMUEL Administration Citalopram Hydrobromide 10 mg 08/01/24 09:00 08/03/24 09:07 Citalopram Hydrobromide 10 Mg Tablet PO 10 mg DAILY SAMUEL Administration Dextrose 12.5 gm 07/31/24 19:00 Dextrose 50% 25 Gm/50 Ml Syringe IV PUSH PRN PRN Hypoglycemia Protocol Ferrous Sulfate 325 mg 08/01/24 09:00 08/03/24 09:06 Ferrous Sulfate [address] PO 325 mg DAILY SAMUEL Administration Glucagon 1 mg 07/31/24 19:00 Glucagon For Inj 1 Mg Vial IM PRN PRN Hypoglycemia Protocol Glucose 15 gm 07/31/24 19:00 Glucose Oral Gel 15 Gm Of Glucse In 37.5 Gm Tube PO PRN PRN Hypoglycemia Protocol Hydralazine HCl 25 mg 08/03/24 11:35 08/03/24 11:48 Hydralazine Hcl 25 Mg Tablet PO 25 mg Q6HR PRN Administration Blood Pressure - High Piperacillin Sod/Tazobactam Sod 2.25 gm in 50 mls @ 100 mls/hr 08/01/24 00:00 08/03/24 11:26 Zosyn 2.25 Gm/Ns 50 Ml IVPB 100 mls/hr Q6HR SAMUEL Administration Dextrose 1,000 mls @ 100 mls/hr 07/31/24 19:00 Dextrose 5% 1,000 Ml IVPB PRN PRN Hypoglycemia Protocol Insulin Aspart 2 - 5 units 08/01/24 08:00 08/03/24 11:25 Insulin Aspart (*Bkc) 100 Units/Ml SUB-Q Not Given TIDWM [facility] Protocol Insulin Aspart 1 - 2 units 07/31/24 21:00 08/02/24 21:48 Insulin Aspart (*Bkc) 100 Units/Ml SUB-Q Not Given HS [facility] Protocol Latanoprost 1 drop 07/31/24 22:55 08/02/24 20:40 Latanoprost 0.005% Op Soln 2.5 Ml Btl EACH EYE 1 drop HS SAMUEL Administration Loratadine 10 mg 08/01/24 09:00 08/03/24 09:06 Loratadine 10 Mg Tablet PO 10 mg DAILY SAMUEL Administration Metoprolol Tartrate 25 mg 07/31/24 22:55 08/03/24 09:07 Metoprolol Tartrate 25 Mg Tablet PO 25 mg Q12HR SAMUEL Administration Morphine Sulfate 2 mg 07/31/24 17:02 08/01/24 00:23 Morphine Sulfate (*Crx) 2 Mg/Ml Inj IV PUSH 2 mg Q2H PRN Administration Pain Rated 7-10 Ondansetron HCl 4 mg 07/31/24 17:02 Ondansetron Inj 4 Mg/2 Ml Vial IV PUSH Q4H PRN Nausea Pantoprazole Sodium 40 mg 08/03/24 09:00 08/03/24 09:07 Pantoprazole Sodium Iv 40 Mg Vial IV PUSH 40 mg QAM SAMUEL Administration Polyethylene Glycol 17 gm 08/01/24 16:43 Polyethylene Glycol 3350 17 Gm Powd.Pack PO QAM PRN Constipation Radiology Results: ITS Impressions Abdomen/Pelvis CT 07/31/24 15:50 IMPRESSION: Findings at the level of the right common femoral vein for which thrombus is suspected. Findings within the bladder for which cystitis is suspected. Free fluid within the deep pelvis. Redemonstration of a percutaneous cholecystostomy, in good position within the gallbladder which is now decompressed with persistent surrounding inflammatory change. Venous Doppler Study 07/31/24 17:26 IMPRESSION: Negative right lower extremity venous US. No deep vein thrombosis. Abdomen X-Ray 08/01/24 16:10 IMPRESSION: Nonspecific, nonobstructive bowel gas pattern, as detailed above. Cholangiogram 08/02/24 12:08 IMPRESSION: 1. Distal loop of the percutaneous cholecystostomy tube along with a few gallstones within the fundus of the decompressed gallbladder with patent cystic and common bile ducts. Labs Labs: Laboratory Results - last 24 hr 08/02/24 08/02/24 08/02/24 11:24 15:27 21:02 WBC RBC Hgb Hct MCV MCH MCHC RDW Plt Count MPV PT INR Sodium Potassium Chloride Carbon Dioxide Anion Gap BUN Creatinine Estim Creat Clear Calc Estimated GFR Glucose POC Capillary Glucose 116 H 138 H 160 H Calcium Magnesium Total Bilirubin AST ALT Alkaline Phosphatase Total Protein Albumin 08/03/24 08/03/24 08/03/24 03:52 07:40 11:21 WBC 8.8 RBC 2.69 L Hgb 8.3 L Hct 25.4 L MCV 94.4 MCH 30.9 MCHC 32.7 RDW 13.9 Plt Count 273 MPV 9.5 PT 23.5 H D INR 2.0 Sodium 137 Potassium 3.5 Chloride 111 H Carbon Dioxide 21 L Anion Gap 5 BUN 15 Creatinine 1.10 H Estim Creat Clear Calc 37 Estimated GFR 48 L Glucose 110 POC Capillary Glucose 101 133 H Calcium 8.1 L Magnesium 1.8 Total Bilirubin 0.6 AST 27 ALT 25 Alkaline Phosphatase 79 Total Protein 5.0 L Albumin 2.8 L
[2024-08-03 15:58] LABS: Glucose Point of Care 147 mg/dl (65-105)
--- NOTE | 2024-08-03 16:07 | PM.DS ---
DS: Admitting Diagnosis Discharge Date 08/03/24 Admitting Diagnosis Abdominal pain DS: Discharge Diagnosis Discharge Diagnosis (1) Abdominal pain: Code(s): R10.9 - Unspecified abdominal pain Status: Acute Assessment and Plan: Could be due to constipation versus infection versus bile leak Pain medications (2) Cholecystitis: Code(s): K81.9 - Cholecystitis, unspecified Status: Acute Assessment and Plan: Status post perc abby tube Surgery consulted pending recommendations NPO midnight for possible procedure (3) Constipation: Code(s): K59.00 - Constipation, unspecified Status: Acute Assessment and Plan: Fecal stasis of the ascending colon Aggressive bowel protocol Will need to be on home bowel protocol when discharge (4) Leukocytosis: Code(s): D72.829 - Elevated white blood cell count, unspecified Status: Acute Assessment and Plan: Blood cultures pending UA negative IV Zosyn for possible intra-abdominal infection (5) Supratherapeutic INR: Code(s): R79.1 - Abnormal coagulation profile Status: Acute Assessment and Plan: Daily INR let naturally trend down Currently Holding warfarin, patient was taking 8 mg (6) Anemia: Code(s): D64.9 - Anemia, unspecified Status: Acute Assessment and Plan: At baseline No signs of acute bleeding Daily CBC Transfuse if less than 7 (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 HS SSI Hold home metformin (8) Paroxysmal atrial fibrillation: Code(s): I48.0 - Paroxysmal atrial fibrillation Status: Chronic Assessment and Plan: Currently holding warfarin INR in a.m. (9) CHF (congestive heart failure): Qualifiers: Heart failure chronicity: chronic Heart failure type: diastolic Qualified Code(s): I50.32 - Chronic diastolic (congestive) heart failure Code(s): I50.9 - Heart failure, unspecified Status: Acute Assessment and Plan: Restart p.o. Lasix Q 48 hours and spironolactone daily (10) HTN (hypertension): Qualifiers: Hypertension type: essential hypertension Qualified Code(s): I10 - Essential (primary) hypertension Code(s): I10 - Essential (primary) hypertension Status: Chronic Assessment and Plan: Continue amlodipine Plan patient presented with abdominal pain s/p cholecystostomy tube on last admission, CT of abdomen showed tube in correct position, seen by surgery service will have further evaluation with cholecystostomy tube to check of any leaks and inflammation, patient c/o boating and not passing gas KUB is normal, will give miralax to help with BM. today patient clinical symptoms are improving, patient had cholangiogram which showed distal loop of the percutaneous cholecystostomy tube along with a few gallstones within the fundus of the decompressed gallbladder with patent cystic and common bile ducts. seen by surgery service and started patient on low fat diet, will monitor. DS: Summary Hospital Course Hospital Course: patient presented with abdominal pain s/p cholecystostomy tube on last admission, CT of abdomen showed tube in correct position, seen by surgery service will have further evaluation with cholecystostomy tube to check of any leaks and inflammation, patient c/o boating and not passing gas KUB is normal, will give miralax to help with BM. today patient clinical symptoms are improving, patient had cholangiogram which showed distal loop of the percutaneous cholecystostomy tube along with a few gallstones within the fundus of the decompressed gallbladder with patent cystic and common bile ducts. seen by surgery service and started patient on low fat diet, which patient is able to tolerate and clinically stable, will discharge patient today. Time Spent with Patient Time attestation: Total time spent providing and/or coordinating discharge services: Exam Narrative: Patient is comfortable, NAD HEENT: eyes are clear and none icteric LUNGS:CTA HEART: RR S1S2 ABD: Bowel sounds are faint Lower extremities: no edema SKIN: nonjaundiced Neuro: grossly intact. DS: Data Data Completed and Pending Labs on day of discharge: Labs from last 24 hours 08/03/24 08/03/24 08/03/24 15:36 11:21 07:40 WBC RBC Hgb Hct MCV MCH MCHC RDW Plt Count MPV PT INR Sodium Potassium Chloride Carbon Dioxide Anion Gap BUN Creatinine Estim Creat Clear Calc Estimated GFR Glucose POC Capillary Glucose 147 H 133 H 101 Calcium Magnesium Total Bilirubin AST ALT Alkaline Phosphatase Total Protein Albumin 08/03/24 08/02/24 03:52 21:02 WBC 8.8 RBC 2.69 L Hgb 8.3 L Hct 25.4 L MCV 94.4 MCH 30.9 MCHC 32.7 RDW 13.9 Plt Count 273 MPV 9.5 PT 23.5 H D INR 2.0 Sodium 137 Potassium 3.5 Chloride 111 H Carbon Dioxide 21 L Anion Gap 5 BUN 15 Creatinine 1.10 H Estim Creat Clear Calc 37 Estimated GFR 48 L Glucose 110 POC Capillary Glucose 160 H Calcium 8.1 L Magnesium 1.8 Total Bilirubin 0.6 AST 27 ALT 25 Alkaline Phosphatase 79 Total Protein 5.0 L Albumin 2.8 L Preliminary micro results at discharge 07/31/24 16:44 Blood Culture - Preliminary Blood 07/31/24 17:19 Blood Culture - Preliminary Blood Discharge Plan Discharge Attending physician on discharge: Lawson Reese Consulting providers: Estelle Mar; Elvia Calvillo; Coco Horne; Percy Aparicio; Zackary Olivia; Rebecca Post Discharging Clinician: Sondra Jones Patient Disposition: Home Activity: as tolerated Diet: heart healthy and low fat Discharge Instructions: patient to follow discharge care instruction from her surgeon and follow up as scheduled in 2 weeks. patient to follow up with her primary care provider as soon as possible, patient is instructed if any symptoms worsen to go to nearest ER. Patient Instructions: Antibiotic Form, Warfarin (By mouth) Patient Language: Estonian Stand Alone Forms: General Discharge Information, Work/School Release IP Follow-up/Referrals: Christian Cardozo MD [Primary Care Provider] - Estelle Mar MD [Physician] - Discharge Medications: New polyethylene glycol 3350 [Miralax] 17 gram Powder In Packet 17 g PO QAM PRN (Reason: Constipation) Qty: 30 0RF Continued latanoprost 0.005 % drops 1 drp EACH EYE HS (DME) Accu-Chek Ingrid Plus test strp Strip See Rx Instructions .ROUTE .MEDSUPPLY Qty: 100 2RF Rx Instructions: Use to check blood sugar 3 times daily. loratadine 10 mg tablet 10 mg PO DAILY metoprolol tartrate 25 mg tablet 25 mg PO BID aspirin 81 mg Tablet,Delayed Release (Dr/Ec) 81 mg PO DAILY lansoprazole 15 mg capsule,delayed release(DR/EC) 15 mg PO DAILY atorvastatin 80 mg tablet 80 mg PO QPM Rx Instructions: TAKE 1 TABLET EVERY DAY furosemide 20 mg tablet See Rx Instructions PO .COMPLEX Patient Comments: not started yet Rx Instructions: orally every other day acetaminophen [Arthritis Pain Relief (acetam)] 650 mg tablet extended release 650 mg PO Q8H PRN (Reason: pain) amoxicillin-pot clavulanate [Augmentin] 500-125 mg Tablet 1 tablet PO BID Qty: 7 0RF warfarin 2 mg tablet 8 mg PO DAILY MDD 8mg Qty: 30 0RF prednisone 10 mg tablets,dose pack See Taper PO DAILY 7 Days Qty: 42 0RF Taper: Prednisone Taper from 60 mg;12 days 60 mg DAILY for 2 Days and 0 Hour 50 mg DAILY for 2 Days and 0 Hour 40 mg DAILY for 2 Days and 0 Hour 30 mg DAILY for 2 Days and 0 Hour 20 mg DAILY for 2 Days and 0 Hour 10 mg DAILY for 2 Days and 0 Hour ferrous sulfate [Iron (ferrous sulfate)] 325 mg (65 mg iron) tablet 325 mg PO DAILY Qty: 90 2RF citalopram 10 mg tablet 10 mg PO DAILY Qty: 90 1RF albuterol sulfate 90 mcg/actuation HFA aerosol inhaler 2 puff inhalation QID PRN (Reason: shortness of breath or wheezing) Qty: 6.7 0RF ergocalciferol (vitamin D2) [Vitamin D2] 1,250 mcg (50,000 unit) capsule 1,250 mcg PO WEEKLY Qty: 14 0RF Patient Comments: has not taken yet amlodipine 10 mg tablet 10 mg PO DAILY Qty: 90 2RF Rx Instructions: Take 1 tablet by mouth once daily No Action spironolactone 25 mg tablet 25 mg PO DAILY Qty: 90 2RF metformin 500 mg tablet 500 mg PO BID Qty: 30 0RF Rx Instructions: TAKE 1 TABLET TWICE DAILY Date of admission: 08/02/24 14:49 Primary Care Provider: Christian Cardozo Admitting Provider: Lawson Reese Attending physician on admission: Sondra Jones Condition: Stable
== END 2024-08-03 17:20 | disposition home or self-care (01) | DRG 445 ==
LOC: ANHED 15:02 → ANHIMU 17:39
PROVIDERS: Nurse Practitioner Gerontology; Student in an Organized Health Care Education/Training Program; Admitting Provider General Practice; Emergency Provider Emergency Medicine; PCP Family Medicine; Visit Provider Family Medicine
DX: K80.10 Calculus of gallbladder with chronic cholecystitis without obstruction (principal); I13.0 Hypertensive heart and chronic kidney disease with heart failure and stage 1 through stage 4 chronic kidney disease, or unspecified chronic kidney disease; I50.32 Chronic diastolic (congestive) heart failure; N18.4 Chronic kidney disease, stage 4 (severe); I35.0 Nonrheumatic aortic (valve) stenosis; E13.22 Other specified diabetes mellitus with diabetic chronic kidney disease; E13.9 Other specified diabetes mellitus without complications; E55.9 Vitamin D deficiency, unspecified; D64.9 Anemia, unspecified; K59.00 Constipation, unspecified; H40.9 Unspecified glaucoma; M19.90 Unspecified osteoarthritis, unspecified site; F32.A Depression, unspecified; I25.2 Old myocardial infarction; Z95.1 Presence of aortocoronary bypass graft; Z79.82 Long term (current) use of aspirin; Z86.711 Personal history of pulmonary embolism; Z93.4 Other artificial openings of gastrointestinal tract status
CPT/HCPCS: 36415; 47531; 74018; 74177; 80048; 80053; 81001; 82948; 83605; 83690; 83735; 85025; 85027; 85610; 85730; 87040; 93971; 96361; 96365; 96375; 96376; 99285; A9270; G0378; J2270; J2470; J2543; J3475; J7030; Q9966; Q9967

== ENCOUNTER 2024-08-08 10:51 | Outpatient (CLI) | payer MEDICARE, SELFPAY ==
--- OUTSIDE RECORDS SUMMARY | 2024-08-08 10:57 | XMS_ITS | Encounter Summary ---
Author Organization [facility] Address [facility] [place] [address] Care Team Providers Care Lawn Technician Name Role Phone Bianca Silverman Primary Care Provider Christian Cardozo MD Primary Care Provider [phone] Encounter Details Date Type Department Care Team (Latest Contact Info) Description 01/30/2018 Abstract [facility] , Tanner Souza MD Social History Tobacco Use Types Packs/Day Years Used Date Smoking Tobacco: Never Assessed Comments Unknown Sex and Gender Information Value Date Recorded Sex Assigned at Female 05/03/2024 2:10 PM MASTIC SPRAYER Legal Sex Female 5:08 PM CDT Gender Identity Not on file Sexual Orientation Not on file documented as of this encounter Plan of Treatment Not on file documented as of this encounter Visit Diagnoses Not on filedocumented in this encounter Care Teams Lawn Technician Relationship Specialty Start Date End Date Bianca Silverman FNP [facility] [place] [address] PCP - General NURSE PRACTITIONER 02/22/19 03/13/24 Christian Cardozo MD [address] [facility] [address] [place] [address] PCP - General FAMILY PRACTICE 03/14/24 documented as of this encounter
--- OUTSIDE RECORDS SUMMARY | 2024-08-08 10:57 | XMS_ITS | Encounter Summary ---
Author Organization [facility] Address [address] [place] [address] Phone Care Team Providers Care Plaque Maker Name Role Phone Christian Cardozo MD Primary Care Provider Encounter Details Date Type Department Care Team (Latest Contact Info) Description 08/04/2023 Transcribe Orders [facility] [address] [place] [address] Dhiraj Witt MD [address] [facility] [address] [place] [address] Encounter for other specified special examinations (Primary [...] Primary documented in this encounter Care Teams Plaque Maker Relationship Specialty Start Date End Date Christian Cardozo MD [address] [place] [address] PCP - General Family Medicine 08/04/23 documented as of this encounter
--- OUTSIDE RECORDS SUMMARY | 2024-08-08 10:57 | XMS_ITS ---
Author Organization [facility] Address [address] [place], [place] [address] Care Team Providers Care Air Cargo Ground Crew Supervisor Name Role Phone FRANCISCO FUCHS Unavailable [phone] Christian Cardozo Unavailable Unavailable Allergies No Known [...] Medicationcitalopram 10 MG Oral Tablet *Reorder from [facility] for eRx and Interaction Alerts* 10/28/2016 Unknown valsartan 40 MG Oral Tablet [Diovan] ORAL valsartan 40 MG Oral Tablet [Diovan]Original Medicationvalsartan 40 MG Oral Tablet [Diovan] *Reorder from [facility] for eRx and Interaction Alerts* 10/28/2016 Unknown metformin hydrochloride 500 MG Oral Tablet ORAL metformin hydrochloride 500 MG Oral TabletOriginal Medicationmetformin hydrochloride 500 MG Oral Tablet *Reorder from [facility] for eRx and Interaction Alerts* 10/28/2016 Unknown ezetimibe 10 MG / simvastatin 10 MG Oral Tablet [Vytorin] ORAL ezetimibe 10 MG / simvastatin 10 MG Oral Tablet [Vytorin]Original Medicationezetimibe 10 MG / simvastatin 10 MG Oral Tablet [Vytorin] *Reorder from [facility] for eRx and Interaction Alerts* 10/28/2016 Unknown Encounters Encounter Location Date Provider Diagnosis [facility] [address] [place], [place] [id number] 05/30/2024 FRANCISCO FUCHS Tinea unguium B35.1 ; Pain in right toe(s) M79.674 ; Pain in left toe(s) M79.675 ; 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 [...] Patient denies c hest pain, history of CT, irregular heartbeat. M usculoskeletal: Patient complains of h ammertoes. P eripheral Vascular: Patient denies b lanching of skin, cold extremities, decreased sensation in extremities. S kin: Patient complains of f ungal nails, nail changes. N eurologic: Patient denies d izziness, gait [...] Medicationcitalopram 10 MG Oral Tablet *Reorder from [facility] [place] for eRx and Interaction Alerts*, Unknown ezetimibe 10 MG / simvastatin 10 MG Oral Tablet [Vytorin] ORAL , Notes to Pharmacist: ezetimibe 10 MG / simvastatin 10 MG Oral Tablet [Vytorin]Original Medicationezetimibe 10 MG / simvastatin 10 MG Oral Tablet [Vytorin] *Reorder from [facility] [place] for eRx and Interaction Alerts*, Unknown metformin hydrochloride 500 MG Oral Tablet ORAL , Notes to Pharmacist: metformin hydrochloride 500 MG Oral TabletOriginal Medicationmetformin hydrochloride 500 MG Oral Tablet *Reorder from [facility] [place] for eRx and Interaction Alerts*, Unknown valsartan 40 MG Oral Tablet [Diovan] ORAL , Notes to Pharmacist: valsartan 40 MG Oral Tablet [Diovan]Original Medicationvalsartan 40 MG Oral Tablet [Diovan] *Reorder from [facility] [place] for eRx and Interaction Alerts*, Medication List [...] subungual debris. They are painful to palpation. V ascular: Dorsalis pedis pulse: 1 /4 b ilateral. Posterior tibial pulse: 0 /4 bilateral. Capillary refill: g reater than 3 seconds. Edema: N o edema bilateral. N eurologic: Gross sensation G rossly intact to light touch. There is negative Tinel's sign. M usculoskeletal: Muscle Strength M uscle strength is 5/5 in regards to dorsiflexion, plantarflexion, inversion, and eversion in bilateral lower extremities. Assessment: * Assessment: 1. T inea unguium - B35.1 (Primary) 2 . P ain in right toe(s) - M79.674 3. P ain in left toe(s) - M79.675 4 . A therosclerosis of timbi[place]sha shoshone arteries of extremities with intermittent claudication, bilateral [...] develop.) * Billing Information: * Visit Code: 73932 Office Visit, Est Pt., Level 3. * Procedure Codes: * Electronic signature of FRANCISCO FUCHS DPM on 08/08/2024 at 10:57 AM CDT Sign off status: Pending * Provider: Antonio Fuchs DPM Date: 0 05/30/2024 Generated for Jacquie lord/Robert/Rhiannon on: 0 08/08/2024 10:57 AM CDT History and Physical Notes * [...]
--- OUTSIDE RECORDS SUMMARY | 2024-08-08 10:57 | XMS_ITS | Clinical Summary ---
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 05/07/2018 Overview (05/08/2018): Added automatically from request for surgery [id number] S/P CABG (coronary artery bypass graft) Type 2 diabetes mellitus with other specified co mplication Encounters Date Type Department Care Team Description 07/23/2024 11:30 AM CDT Office Visit [facility] Cardiology [address] [place] [address] Macey Espinosa NP NSTEMI (non-ST elevated myocardial infarction) (HCC) (Primary Dx); 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; Status post coronary angiogram; Chronic anticoagulation; Hospital discharge follow-up 07/22/2024 Orders Only [facility] Medical [facility] Cardiology [address] [address] [place], [place] [phone] Odilia Brothers MD 07/19/2024 Orders Only [facility] Cardiology [address] [place] [address] [place] [address] Zhen Oliveira MD 06/17/2024 Anticoagulation Visit [facility] Cardiology [address] [place] [address] [place], [place] [phone] Elda Mullins RN 06/13/2024 Anticoagulation Visit [facility] Cardiology [address] [place] [address] [place] [phone] Didi Wills, RN from Last 3 Months Surgical History Surgery [...] on file Legal Sex Female 1:11 PM WOOD FENCE ERECTOR Gender Identity Not on file Sexual Orientation [...] 07/15/2024 8:14 AM CDT PROTIME-INR Routine 06/11/2024 LIPID PANEL Routine 01/08/2024 8:58 AM CDT EGFR STAT 05/16/2018 9:14 AM WOOD FENCE ERECTOR HEMOGLOBIN A1C Routine 05/07/2018 7:28 PM WOOD FENCE ERECTOR from Last 3 Months or Most Recently [...] EXTERNAL LAB * eGFR (05/16/2018 9:14 AM WOOD FENCE ERECTOR) eGFR 49 mL/min/1.7 3 m2 JACOB Comment: Interpretive Data Reference Interval Normal >/= 90 mL/min/1.73m2 Mildly decreased* 60 - 89 mL/min/1.73m2 Mildly to moderately decreased 45 - 59 mL/min/1.73m2 Moderately to severely decreased 30 - 44 mL/min/1.73m2 Severely decreased 15 - 29 mL/min/1.73m2 Kidney Failure < 15 mL/min/1.73m2 *Relative to young adult level If -Mosoth[place] multiply value by 1.16. Estimated glomerular filtration [...] 2015. Blood specimen (specimen) 05/16/2018 9:14 AM WOOD FENCE ERECTOR 05/16/2018 9:16 AM WOOD FENCE ERECTOR Narrative JACOB - 05/16/2018 9:47 AM WOOD FENCE ERECTOR Pari Candelario [employer] LAB BLOOD ORDERABLES Shelley l Result [facility] [address] Department [place] [address] * (ABNORMAL) Hemoglobin A1c (05/07/2018 7:28 PM WOOD FENCE ERECTOR) Hgb A1C 9.0(H) 4.0 - 5.6 % JACOB Estimated Average Glucose 212 mg/dL JACOB SILVER Comment: The ADA recommends reporting an estimated Average Glucose (eAG) with all Hemoglobin A1c results using the equation derived from a study of 507 normal and diabetic adults. Minority populations were underrepresented and children were not included. (Diabetes Care 31:4646-5605, 2008). The eAG is not equivalent to a fasting glucose. Blood specimen (specimen) 05/07/2018 7:28 PM WOOD FENCE ERECTOR 05/07/2018 8:02 PM WOOD FENCE ERECTOR Narrative JACOB SILVER - 05/07/2018 8:18 PM WOOD FENCE ERECTOR Luke Magana MD LAB BLOOD ORDERABLES Final R esult JACOB SILVER [address] Department [place] [address] from Last 3 Months or Most Recently Relevant to Health Maintenance Insurance [facility]ICARE [facility] [employer] CHOICE MEDICARE PPO Advance Directives For more information, please contact: [phone] * Full Code (Latest Code Status on File) Date Activated Date Inactivated Comments 05/18/2018 7:34 PM * Full Code Date Activated Date Inactivated Comments 05/08/2018 3:11 PM 05/16/2018 5:35 PM Care Teams Liquid Compounder Relationship Specialty Start Date End Date Christian Cardozo MD [address] [facility] [address] [facility] [address] [place] [address] PCP - General Family Medicine 06/14/18
--- OUTSIDE RECORDS SUMMARY | 2024-08-08 10:57 | XMS_ITS | Clinical Summary ---
Author Organization [facility] Address [address] [place] [address] Phone Care Team Providers Care Mortgage Broker Name Role Phone Christian Cardozo MD Primary [...] to complete this topic Insurance [address] [place] [address] MEDICARE C BCBS PPO MODE [place] [id number] Care Teams Mortgage Broker Relationship Specialty Start Date End Date Christian Cardozo MD [address] [place] [address] PCP - General Family Medicine 08/04/23
--- OUTSIDE RECORDS SUMMARY | 2024-08-08 10:57 | XMS_ITS | Encounter Summary ---
Author Organization [facility] Address [facility] [place] [address] Care Team Providers Care Gang Bore Operator Name Role Phone Bianca Silverman Primary Care Provider [phone] Christian Cardozo MD Primary Care Provider [phone] Encounter Details Date Type Department Care Team (Late st Contact Info) Description 09/01/2018 Abstract [facility] [address] [place] [address] , Generic Conversion, Social History Tobacco Use Types Packs/Day Years Used Date Smoking Tobacco: Never Assessed Comments Unknown Sex and Gender Information Value Date Recorded Sex Assigned at Female 05/03/2024 2:10 PM MILL HAND PLATE MILL Legal Sex Female 5:08 PM CDT Gender Identity Not on file Sexual Orientation Not on file documented as of this encounter Plan of Treatment Not on file documented as of this encounter Visit Diagnoses Not on filedocumented in this encounter Care Teams Gang Bore Operator Relationship Specialty Start Date End Date Bianca Silverman FNP [address] [place] [address] PCP - General NURSE PRACTITIONER 02/22/19 03/13/24 Christian Cardozo MD [address] [facility] [address] [place] [address] PCP - General FAMILY PRACTICE 03/14/24 documented as of this encounter
--- OUTSIDE RECORDS SUMMARY | 2024-08-08 10:57 | XMS_ITS | Patient Health Record ---
Author Organization [facility] Address [address] [place], [place] [address] Care Team Providers Care Hand Crocheter Name Role Phone FRANCISCO FUCHS Unavailable [phone] Christian Cardozo Unavailable Unavailable CARLYLE MARINO Unavailable [phone] LIN FENG Unavailable [phone] Allergies No Known Allergies Reason For Referral No Information Medications Medication SIG (Take, Route, Frequency, Duration) Notes Start Date End Date Status citalopram 10 MG Oral Tablet ORAL citalopram 10 MG Oral TabletOriginal Medicationcitalopram 10 MG Oral Tablet *Reorder from [employer] for eRx and Interaction Alerts* 10/28/2016 Unknown valsartan 40 MG Oral Tablet [Diovan] ORAL valsartan 40 MG Oral Tablet [Diovan]Original Medicationvalsartan 40 MG Oral Tablet [Diovan] *Reorder from [employer] for eRx and Interaction Alerts* 10/28/2016 Unknown metformin hydrochloride 500 MG Oral Tablet ORAL metformin hydrochloride 500 MG Oral TabletOriginal Medicationmetformin hydrochloride 500 MG Oral Tablet *Reorder from [employer] for eRx and Interaction Alerts* 10/28/2016 Unknown ezetimibe 10 MG / simvastatin 10 MG Oral Tablet [Vytorin] ORAL ezetimibe 10 MG / simvastatin 10 MG Oral Tablet [Vytorin]Original Medicationezetimibe 10 MG / simvastatin 10 MG Oral Tablet [Vytorin] *Reorder from [employer] for eRx and Interaction Alerts* 10/28/2016 Unknown Immunizations Vaccine Route Administration Date Status Comme nts Influenza, high dose seasonal Unknown 01/02/2023 Admini stered Vital Signs Height-cm 165.1 cm 08/31/2023 Weight-kg 81.19 kg 08/31/2023 Height 65 in 08/31/2023 Weight 179 lbs 08/31/2023 BMI 29.78 kg/m2 08/31/2023 Encounters Encounter Location Date Provider Diagnosis [address] [id number] 05/30/2024 FRANCISCO FUCHS Tinea unguium B35.1 ; Pain in right toe(s) M79.674 ; Pain in left toe(s) M79.675 ; Atherosclerosis of [place] arteries of extremities with intermittent claudication, bilateral legs I70.213 and Type 2 diabetes mellitus with other circulatory complications E11.[address] [id number] 08/31/2023 CARLYLE MARINO Other hammer toe(s) (acquired), right foot M20.41 ; Tinea unguium B35.1 ; Other hammer toe(s) (acquired), left foot M20.42 ; Pain in right toe(s) M79.674 ; Pain in left toe(s) M79.675 ; Unspecified atherosclerosis of [place] arteries of extremities, bilateral legs I70.203 and Type 2 diabetes mellitus with diabetic peripheral angiopathy without gangrene E11.51 [facility] [address] [place], [place] [id number] 11/16/2023 CARLYLE MARINO Other hammer toe(s) (acquired), right foot M20.41 ; Tinea unguium B35.1 ; Other hammer toe(s) (acquired), left foot M20.42 ; Pain in right toe(s) M79.674 ; Pain in left toe(s) M79.675 ; Unspecified atherosclerosis of [place] arteries of extremities, bilateral legs I70.203 and Type 2 diabetes mellitus with diabetic peripheral angiopathy without gangrene E11.[address] [id number] 01/18/2024 CARLYLE MARINO Other hammer toe(s) (acquired), right foot M20.41 ; Tinea unguium B35.1 ; Other hammer toe(s) (acquired), left foot M20.42 ; Pain in right toe(s) M79.674 ; Pain in left toe(s) M79.675 ; Unspecified atherosclerosis of [place] arteries of extremities, bilateral legs I70.203 and Type 2 diabetes mellitus with diabetic peripheral angiopathy without gangrene E11.51 [facility] [address] [place], [place] [id number] 03/28/2024 FRANCISCO FUCHS Tinea unguium B35.1 ; Pain in right toe(s) M79.674 ; Pain in left toe(s) M79.675 ; Atherosclerosis of northern [place] arteries of extremities with intermittent claudication, bilateral [...] toe(s) (ICD-10 - M79.675) 03/28/2024 Atherosclerosis of [place] arteries of extremities with intermittent claudication, bilateral legs (ICD-10 - I70.213) 05/30/2024 Atherosclerosis of northern [place] arteries of extremities with intermittent claudication, bilateral legs (ICD-10 - I70.213) 01/18/2024 Pain in left toe(s) (ICD-10 - M79.675) 11/16/2023 Pain in left toe(s) (ICD-10 - M79.675) 08/31/2023 Pain in left toe(s) (ICD-10 - M79.675) 08/31/2023 Unspecified atherosclerosis of northern [place] arteries of extremities, bilateral legs (ICD-10 - I70.203) Patient educated on risks and aggravating factors of PVD, including conservative treatment options such as a diet and exercise regimen to aid in slowing progression of vascular disease 11/16/2023 Unspecified atherosclerosis of northern [place] arteries of extremities, bilateral legs (ICD-10 - I70.203) Patient educated on risks and aggravating factors of PVD, including conservative treatment options such as a diet and exercise regimen to aid in slowing progression of vascular disease 01/18/2024 Unspecified atherosclerosis of northern [place] arteries of extremities, bilateral legs (ICD-10 - [...] Details Provider Name:LIN VARGAS, 08/22/2024 02:30:00 PM, [address] [place] [address], [id number], Insurance Providers Payer Name Payer Address Payer Phone Subscriber Number Group Number Insured Name Patient Relationship to Insured Coverage Start Date Coverage End Date [facility] [address] [place], [place] [id number] MELISSA VALERIO Self - patient is the insured
--- OUTSIDE RECORDS SUMMARY | 2024-08-08 10:58 | XMS_ITS | Clinical Summary ---
Author Organization [facility] Address [address], [place] [address] Phone Care Team Providers Care Backpackers Manager Name Role Phone Unavailable Primary Care [...] Comments Blood Pressure 152/80 04/23/2018 12:01 AM RESEARCH PROGRAM MANAGER Pulse - - Temperature 36.7 C (98.1 F) 04/23/2018 12:01 AM RESEARCH PROGRAM MANAGER Respiratory Rate - - Oxygen Saturation - - Inhaled Oxygen Concentration - - Weight 79.4 kg (175 lb) 04/23/2018 12:01 AM RESEARCH PROGRAM MANAGER Height 162.6 cm (5' 4 ) 04/23/2018 12:01 AM RESEARCH PROGRAM MANAGER Body Mass Index 30.04 04/23/2018 12:01 AM RESEARCH PROGRAM MANAGER Plan of Treatment Not on file
--- OUTSIDE RECORDS SUMMARY | 2024-08-08 10:58 | XMS_ITS | Clinical Summary ---
Author Organization [facility] Address [address] [place] [address] Care Team Providers Care Insole Tacker Name Role Phone Christian Cardozo MD Primary [...] - 06/11/2024 11:59 PM CDT Hospital Encounter [facility] [address] [place] [address] Krissy Dumont MD Discharge Disposition: Home or Self Care (Routine Discharge) 06/11/2024 10:31 AM CDT Hospital Encounter [facility] [address] [place] [address] Christian Cardozo MD Discharge Disposition: Home or Self Care (Routine Discharge) 06/11/2024 10:29 AM CDT - 06/11/2024 10:30 AM CDT Hospital Encounter [facility] [address] [place] [address] Twin Brar MD Discharge Disposition: Home or Self Care (Routine Discharge) 06/11/2024 Orders Only [facility] [address] [place] [address] Krissy Dumont MD 06/11/2024 Travel from Last 3 Months Family History [...] Sex Assigned at Female 05/03/2024 2:10 PM DEPLOYMENT SPECIALIST Legal Sex Female 5:08 PM CDT [...] Hemoglobin A1C 11/04/2018 05/07/2018, 05/09/2012 COVID-19 Vaccine (2023-2 5 season) 2023 Lipid Panel 06/11/2025 06/11/2024 [...] diabetes mellitus with ESRD (end-stage renal disease) ([facility]) Inadequately controlled diabetes mellitus ([facility]) Encounter for long-term (current) use of insulin ([facility]) Other specified abnormal findings of blood chemistry Chronic kidney disease, unspecified VITAMIN D, 25 OH Routine 06/11/2024 10:3 9 AM CDT Type 2 diabetes mellitus with ESRD (end-stage renal disease) ([facility]) Inadequately controlled diabetes mellitus ([facility]) Encounter for long-term (current) use of insulin ([facility]) Other specified abnormal findings of blood chemistry Chronic kidney disease, unspecified VITAMIN B-12 Routine 06/11/2024 10:39 AM CDT Type 2 diabetes mellitus with ESRD (end-stage renal disease) ([facility]) Inadequately controlled diabetes mellitus ([facility]) Encounter for long-term (current) use of insulin ([facility]) Other specified abnormal findings of blood chemistry Chronic kidney disease, unspecified LIPID PANEL Routine 06/11/2024 10:39 AM CDT Type 2 diabetes mellitus with ESRD (end-stage renal disease) ([facility]) Inadequately controlled diabetes mellitus ([facility]) Encounter for long-term (current) use of insulin ([facility]) Other specified abnormal findings of blood chemistry Chronic kidney disease, unspecified PROTHROMBIN TIME, VENOUS Routine 06/11/2024 10:39 AM CDT Atrial fibrillation with RVR ([facility]) HEMOGLOBIN, GLYCOSYLATED Routine 05/09/2012 11:40 AM DEPLOYMENT SPECIALIST from Last 3 Months or Most Recently Relevant to Health Maintenance Results * (ABNORMAL) MICROALBUMIN CREATININE RATIO (MICROALBUMIN/ALBUMIN) (06/11/2024 10:50 AM CDT) CREATININE (U) 90.5 28 - 217 MG/DL 06/11/2024 11:[address] [facility] MICROALBUMIN (U) 75.9(H) <2.0 mg/dL 06/11/2024 11:[address] [facility] ALBUMIN/CREAT RATIO 838.8(H) <30.0 MG/G 06/11/2024 11:[address] [facility] URINE SPECIMEN / Unknown 06/11/2024 10:50 AM CDT us Kirssy Dumont MD URINE ORDERABLES Final Result [facility] [address] [place] [address], [place] [phone] * (ABNORMAL) VITAMIN B-12 (06/11/2024 10:39 AM CDT) [facility] VITAMIN B12 S/P/B 1,501(H) 193 - 986 PG/ML 06/11/2024 11:[address] [facility] 06/11/2024 10:3 9 AM CDT us Krissy Dumont MD LABORATORY Final Result [facility] [address] [place] [address], [place] [phone] * (ABNORMAL) PROTIME/INR, VENOUS (06/11/2024 10:39 AM CDT) [facility] PROTIME 28.2(H) 9.1 - 12.4 SEC 06/11/2024 11:[address] [facility] INR 2.5 06/11/2024 11:[address] [facility] Comment: Recommend INR ranges for Oral Anticoagulant Therapy: Mechanical Cardiac Values 2.5-3.5 All others indication 2.0-3.0 06/11/2024 10:3 9 AM CDT us Twin Brar MD LABORATORY Final Res ult [facility] [address] [place] [address], [place] [phone] * (ABNORMAL) LIPID PANEL (06/11/2024 10:39 AM CDT) [facility] CHOLESTEROL 162 <200.0 MG/DL 06/11/2024 11:[address] [facility] TRIGLYCERIDES 173(H) <150 MG/DL 06/11/2024 11:[address] [facility] HDL 44 >40.0 MG/DL 06/11/2024 11:[address] [facility] LDL (CALCULATED) 83 <100 MG/DL 06/11/2024 11:[address] [facility] NON HDL CHOLESTEROL 118 <130 MG/DL 06/11/2024 11:[address] [facility] CHOL/HDL RATIO 3.7 0.0 - 4.5 06/11/2024 11:[address] [facility] VLDL CALCULATION 35 5 - 55 MG/DL 06/11/2024 11:[address] [facility] LIPID INTERPRETATION 06/11/2024 11:[address] [facility] Comment: NIH CONCENSUS REPORT RECOMMENDATIONS: ADULT CHILD LOW RISK: CHOLESTEROL <200 <170 TRIGLYCERIDE <150 --- HDL >=60 --- LDL <100 <110 BORDERLINE: CHOLESTEROL 200-239 170-199 TRIGLYCERIDE 150-199 --- HDL 40-59 --- LDL 100-159 110-129 HIGH RISK: CHOLESTEROL >=240 >=200 TRIGLYCERIDE >=200 --- HDL <40 --- LDL >=160 >=130 06/11/2024 10:3 9 AM CDT us Krissy Dumont MD LABORATORY Final Result [facility] [address] [place] [address], * (ABNORMAL) VITAMIN D, 25 OH (06/11/2024 10:39 AM CDT) VITAMIN D 25 HYDROXY S/P/B 25(L) 30 - 100 NG/ML 06/11/2024 11:[address] [facility] Comment: INTERPRETATION DEFICIENT <20 INSUFFICIENT 20-29 SUFFICIENT 30-100 06/11/2024 10:3 9 AM CDT Krissy Dumont MD LABORATORY Final Result Performing Organization Address City/[facility]/ZIP Co de Phone Number [facility] [address] [facility] [address], * (ABNORMAL) HEMOGLOBIN, GLYCOSYLATED (05/09/2012 11:40 AM DEPLOYMENT SPECIALIST) HGB A1C 6.9 INCREASED RISK OF DIABETES <5.7% NON-DIABETES 5.7-6.4% INCREASED RISK FOR FUTURE DIABETES > OR = 6.5 CONSISTENT WITH DIABETES STANDARDS OF MEDICAL CARE IN DIABETES-2010 DIABETES CARE, 33(SUPP 1): S1-S61,2009 (H) <5.7 % [employer] TO EPIC CONVERSION 05/09/2012 11:4 0 AM DEPLOYMENT SPECIALIST 05/09/2012 11:40 AM DEPLOYMENT SPECIALIST Narrative [employer] TO EPIC CONVERSION - 05/09/2012 12:21 PM DEPLOYMENT SPECIALIST Result Communication: No patient communication needed at this time Ahsan Cash MD LABORATORY Final Result Performing Organization Address City/[facility] [[email or web address]] Co de Phone Number [employer] TO EPIC CONVERSION from Last 3 Months or Most Recently Relevant to Health Maintenance Insurance [employer] Care Teams Insole Tacker Relationship Specialty Start Date End Date Cardozo, Christian, MD [address] [facility] [address] [place] [address] PCP - General FAMILY PRACTICE 03/14/24
--- OUTSIDE RECORDS SUMMARY | 2024-08-08 10:58 | XMS_ITS | Encounter Summary ---
Author Organization [facility] Address Formerly [facility] [place] [address] Care Team Providers Care Paver Name Role Phone Bianca Silverman Primary Care Provider [phone] Christian Cardozo MD Primary Care Provider [phone] Encounter Details Date Type Department Care Team (Late st Contact Info) Description 01/27/2014 Abstract [facility] CONVERSION [address] [place] [address] , Generic ConversionMD Social History Tobacco Use Types Packs/Day Years Used Date Smoking Tobacco: Never Assessed Comments Unknown Sex and Gender Information Value Date Recorded Sex Assigned at Female 05/03/2024 2:10 PM SITE TECHNICIAN Legal Sex Female 5:08 PM CDT Gender Identity Not on file Sexual Orientation Not on file documented as of this encounter Plan of Treatment Not on file documented as of this encounter Visit Diagnoses Not on filedocumented in this encounter Care Teams Paver Relationship Specialty Start Date End Date Bianca Silverman FNP [facility] [place] [address] PCP - General NURSE PRACTITIONER 02/22/19 03/13/24 Christian Cardozo MD [address] [facility] [address] [place] [address] PCP - General FAMILY PRACTICE 03/14/24 documented as of this encounter
--- OUTSIDE RECORDS SUMMARY | 2024-08-08 10:58 | XMS_ITS | Encounter Summary ---
Author Organization [facility] Address [address] [place] [address] Care Team Providers Care Consultant Name Role Phone Christian Cardozo MD Primary Care Provider Encounter Details Date Type Department Care Team (Late st Contact Info) Description 10/02/2023 Orders Only [facility] Health Information Management [address] [place] [address] Scanning, Provider Social History Tobacco Use Types Packs/Day Years Used Date Smoking Tobacco: Never Smokeless Tobacco: Never Alcohol Use Standard Drinks/Week Comments No 0 (1 standard drink = 0.6 oz pur e alcohol) Comments Unknown Sex and Gender Information Value Date Recorded Sex Assigned at Not on file Legal Sex Female 1:11 PM SYSTEM PLANNING ENGINEER Gender Identity Not on file Sexual Orientation [...] on filedocumented in this encounter Care Teams Consultant Relationship Specialty Start Date End Date Christian Cardozo MD [address] [place] [address] PCP - General Family Medicine 06/14/18 documented as of this encounter
--- OUTSIDE RECORDS SUMMARY | 2024-08-08 10:58 | XMS_ITS ---
Author Organization [facility] Address [address] [place], [place] [id number] Care Team Providers Care Clay Burner Name Role Phone FRANCISCO FUCHS Unavailable [phone] Christian Cardozo Unavailable Unavailable LIN FENG Unavailable [phone] REASON FOR VISIT *General care Encounters Encounter Location Date Provider Diagnosis [address] [id number] 08/01/2024 LIN FENG Plan Of Treatment Next Appt Details Provider Name:LIN VARGAS, 08/22/2024 02:30:00 PM, [address] [place] [address], [id number], Progress Notes * MELISSA VALERIO EDOB:[birth year] (83 yo F)Acc No.[id number]:08/01/2024 Patient: MELISSA STEWART Provider: Anusha FENG :1940 A ge:83 Y S ex:Female Date:08/01/2024 Address:[address] [place] [address] [address] Subjective: * Chief Complaints: * 1 . *General care. * Medical History: Objective: * Vitals: Assessment: Plan: * Treatment: * Billing Information: * Visit Code: * Procedure Codes: * Electronic signature of AILYN FENG DPM on 08/08/2024 at 10:57 AM CDT Sign off status: Pending * Provider: Anusha FENG Date: 0 08/01/2024 Generated for Jacquie lord/Robert/Rhiannon on: 0 08/08/2024 10:57 AM CDT
--- OUTSIDE RECORDS SUMMARY | 2024-08-08 10:58 | XMS_ITS | Referral Summary ---
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; Status post coronary angiogram; Chronic anticoagulation; Hospital discharge follow-up 07/22/2024 Orders Only [facility] Cardiology [address] [place] [address] [place], [place] [phone] Odilia Brothers MD 07/19/2024 Orders Only [facility] Cardiology [address] [place] [address] [place], [place] [phone] Zhen Oliveira MD 06/17/2024 Anticoagulation Visit [facility] Cardiology [address] [place] [address] [address] [place] [address] Elda Mullins RN 06/13/2024 Anticoagulation Visit [facility]iology [address] [place] [address] [address] [place] [address] Didi Wills RN from Last 3 Months Allergies No known [...] artery disease of n ative artery of holy cross heart with stable angina pectoris 05/07/2018 Overview (05/08/2018): Added automatically from request for surgery [id number] S/P CABG (coronary artery bypass graft) Type [...] on file Legal Sex Female 1:11 PM CNC MILLING MACHINE OPERATOR Gender Identity Not on file [...] AM CDT EGFR STAT 05/16/2018 9:14 AM CNC MILLING MACHINE OPERATOR HEMOGLOBIN A1C Routine 05/07/2018 7:28 PM CNC MILLING MACHINE OPERATOR from Last 3 Months or Most Recently Relevant to Health Maintenance Results * Cardiology Document Scan (07/20/2024 5:26 PM CDT) Anatomical Region Laterality Modality Other us Beni Bloom MD [facility] PROCE DURES Final Result * Cardiology Document Scan (07/19/2024 5:22 PM CDT) Anatomical Region Laterality Modality Other us Odilia Brotehrs MD [facility] CARDIAC SERVICES PRO CEDURES Final [...] 2.50(A) 0.90 - 1.10 EXTERNAL LAB Blood Historical Provider LAB BLOOD ORDERABLES Shelley l Result EXTERNAL LAB * Lipid panel (01/08/2024 8:58 AM CDT) SCRIBED Cholesterol, Total 150 <200 EXTERNAL LAB SCRIBED HDL 39 >40 EXTERNAL LAB SCRIBED LDL 63 <100 EXTERNAL LAB SCRIBED Triglycerides 242 <150 EXTERNAL LAB Blood Result [facility] Historical Provider LAB BLOOD ORDERABLES Edit ed Result - Final EXTERNAL LAB * eGFR (05/16/2018 9:14 AM CNC MILLING MACHINE OPERATOR) eGFR 49 mL/min/1.7 3 m2 [...] 2015. Blood specimen (specimen) 05/16/2018 9:14 AM CNC MILLING MACHINE OPERATOR 05/16/2018 9:16 AM CNC MILLING MACHINE OPERATOR Narrative JACOB - 05/16/2018 9:47 AM CNC MILLING MACHINE OPERATOR Pari Candelario NP LAB BLOOD ORDERABLES Shelley l Result JACOB [facility] Department [place] [address] * (ABNORMAL) Hemoglobin A1c (05/07/2018 7:28 PM CNC MILLING MACHINE OPERATOR) Hgb A1C 9.0(H) 4.0 - 5.6 % JACOB Estimated Average Glucose 212 mg/dL JACOB Comment: The ADA recommends reporting an estimated Average Glucose (eAG) with all Hemoglobin A1c results using the equation derived from a study of 507 normal and diabetic adults. Minority populations were underrepresented and children were not included. (Diabetes Care 31:4675-4467, 2008). The eAG is not equivalent to a fasting glucose. Blood specimen (specimen) 05/07/2018 7:28 PM CNC MILLING MACHINE OPERATOR 05/07/2018 8:02 PM CNC MILLING MACHINE OPERATOR Narrative JACOB - 05/07/2018 8:18 PM CNC MILLING MACHINE OPERATOR Luke Magana MD LAB BLOOD ORDERABLES Final R esult JACOB [facility] [address] [address] Department [place] [address] from Last 3 Months or Most Recently Relevant to Health Maintenance Insurance MEDICARE [facility] MEDICARE [facility] [employer] CHOICE MEDICARE PPO Advance Directives For more information, please contact: [phone] * Full Code (Latest Code Status on File) Date Activated Date Inactivated Comments 05/18/2018 7:34 PM * Full Code Date Activated Date Inactivated Comments 05/08/2018 3:11 PM 05/16/2018 5:35 PM Care Teams Manager Legal Relationship Specialty Start Date End Date Christian Cardozo MD [address] [facility] [address] [place] [address] PCP - General Family Medicine 06/14/18
[2024-08-08 11:42] LABS: Basophils Percent Auto 0.5 % (0.2-1.2); Eosinophils Absolute Auto 0.1 K/mm3 (0-0.3); Eosinophils Percent Auto 1.4 % (0-4.4); Hematocrit 31.6 % (37.0-47.0); Hemoglobin 10.3 g/dL (12.0-15.0); Immature Granulocyte Absolute 0.02 K/mm3 (0.00-0.031); Immature Granulocyte Percent A 0.2 % (0-0.5); Lymphocytes Absolute Auto 1.41 K/mm3 (0.9-3.2); Mean Corpuscular HGB Conc 32.6 g/dl (32-36); Mean Corpuscular Hemoglobin 30.7 pg (26-34); Mean Platelet Volume 9.6 fl (7.4-10.4); Monocytes Absolute Auto 0.5 K/mm3 (0.1-0.6); Monocytes Percent Auto 5.7 % (2.6-8.5); Neutrophils Absolute Auto 6.7 K/mm3 (1.3-6.7); Neutrophils Percent Auto 76.2 % (45.5-73.1); Platelet Count Result 264 k/mm3 (150-375); Red Blood Count 3.36 M/mm3 (4.2-5.4); Red Cell Distribution Width 14.2 % (11.5-14.5); White Blood Count 8.8 K/mm3 (4.5-10.0)
[2024-08-08 11:48] LABS: Alanine Aminotransferase 27 U/L (6-35); Albumin Level 3.9 g/dL (3.5-5.1); Alkaline Phosphatase 85 U/L (38-126); Anion Gap 8 mmol/L (4-12); Aspartate Amino Transferase 27 U/L (14-36); Bilirubin,Total 0.6 mg/dL (0.2-1.3); Blood Urea Nitrogen 12 mg/dL (7-17); Calcium 8.8 mg/dL (8.4-10.2); Carbon Dioxide 24 mmol/L (22-30); Chloride 108 mmol/L (98-107); Estimated Glomerular Filt Rate 51; Glucose 132 mg/dL (65-110); Magnesium 1.4 mg/dL (1.6-2.3); Potassium 4.1 mmol/L (3.4-5.0); Sodium 140 mmol/L (137-145)
[2024-08-08 11:49] LABS: Cholesterol 112 mg/dL (0-200); HDL Direct 48 mg/dL; Triglycerides 163 mg/dL (<150)
[2024-08-08 11:56] LABS: INR 3.3; Prothrombin Time 33.9 Seconds (11.1-14.7)
[2024-08-08 11:58] LABS: NT Pro B Type Natriuretic Pept 3130 pg/mL (19.9-100)
[2024-08-08 12:38] LABS: Vitamin B12 > 1000.0 pg/mL (239-931)
[2024-08-08 13:53] LABS: LDL Cholesterol Direct < 30 mg/dL
[2024-08-08 14:10] LABS: Vitamin D 25 Hydroxy 31.8 ng/mL
[2024-08-08 17:01] LABS: Creatinine Urine 72.7 mg/dL
[2024-08-08 18:39] LABS: MALB Creatinine Ratio 978.3 mg/g (0-30); Microalbumin Urine Random 711.2 mg/L (0-16.7)
== END 2024-08-08 10:52 | disposition home or self-care (01) ==
PROVIDERS: Physician Assistant; PCP Family Medicine; Visit Provider Internal Medicine Endocrinology, Diabetes & Metabolism
DX: I13.0 Hypertensive heart and chronic kidney disease with heart failure and stage 1 through stage 4 chronic kidney disease, or unspecified chronic kidney disease (principal); I50.32 Chronic diastolic (congestive) heart failure; E11.22 Type 2 diabetes mellitus with diabetic chronic kidney disease; N18.32 Chronic kidney disease, stage 3b; I26.99 Other pulmonary embolism without acute cor pulmonale; I48.0 Paroxysmal atrial fibrillation; D63.1 Anemia in chronic kidney disease; I21.4 Non-ST elevation (NSTEMI) myocardial infarction; I82.409 Acute embolism and thrombosis of unspecified deep veins of unspecified lower extremity; E11.65 Type 2 diabetes mellitus with hyperglycemia; E83.42 Hypomagnesemia; M79.672 Pain in left foot; R78.81 Bacteremia; R79.89 Other specified abnormal findings of blood chemistry; Z79.01 Long term (current) use of anticoagulants; Z79.4 Long term (current) use of insulin
CPT/HCPCS: 36415; 80053; 80061; 82043; 82306; 82607; 83735; 83880; 85025; 85610

== ENCOUNTER 2024-08-20 13:11 | Outpatient (RCR) | payer MEDICARE, SELFPAY ==
[2024-08-20 15:32] LABS: Prothrombin Time > 120.0 Seconds (11.1-14.7)
[2024-08-20 15:33] LABS: INR > 20.0
== END 2024-11-18 23:59 | disposition home or self-care (01) ==
LOC: ANHLAB 13:11
PROVIDERS: PCP Family Medicine; Visit Provider Specialist
DX: Z51.81 Encounter for therapeutic drug level monitoring (principal); I48.91 Unspecified atrial fibrillation; Z79.01 Long term (current) use of anticoagulants
CPT/HCPCS: 36415; 85610

== ENCOUNTER 2024-09-21 12:10 | Outpatient (RCR) | payer MEDICARE, SELFPAY ==
[2024-08-21 12:35] LABS: INR > 8.0; Prothrombin Time > 90.0 Seconds (9.64-11.0)
[2024-08-23 10:18] LABS: INR 4.2; Prothrombin Time 40.8 Seconds (9.50-12.1)
[2024-08-29 14:08] LABS: INR 1.2; Prothrombin Time 13.4 Seconds (9.50-12.1)
[2024-09-05 12:29] LABS: INR 1.1; Prothrombin Time 12.4 Seconds (9.50-12.1)
[2024-09-21 12:30] LABS: INR 1.2; Prothrombin Time 12.6 Seconds (9.50-12.1)
== END 2024-11-19 23:59 | disposition home or self-care (01) ==
LOC: CHSLAB 12:10
PROVIDERS: PCP Family Medicine; Visit Provider Specialist
DX: I48.91 Unspecified atrial fibrillation (principal)
CPT/HCPCS: 36415; 85610

== ENCOUNTER 2024-10-04 10:15 | Outpatient (CLI) | payer MEDICARE, SELFPAY ==
--- OUTSIDE RECORDS SUMMARY | 2024-10-04 10:22 | XMS_ITS ---
Author Organization [facility] Address [address] [place], [place] [id number] Care Team Providers Care [place] Assessor Name Role Phone FRANCISCO FUCHS Unavailable [phone] Christian Cardozo Unavailable Unavailable LIN FENG Unavailable [phone] Allergies No Known Allergies REASON FOR VISIT *General care Medications Medication SIG (Take, Route, Frequency, Duration) Notes Start Date End Date Status citalopram 10 MG Oral Tablet ORAL citalopram 10 MG Oral TabletOriginal Medicationcitalopram 10 MG Oral Tablet *Reorder from [employer] for eRx and Interaction Alerts* 10/28/2016 Unknown metformin hydrochloride 500 MG Oral Tablet ORAL metformin hydrochloride 500 MG Oral TabletOriginal Medicationmetformin hydrochloride 500 MG Oral Tablet *Reorder from [employer] for eRx and Interaction Alerts* 10/28/2016 Unknown ezetimibe 10 MG / simvastatin 10 MG Oral Tablet [Vytorin] ORAL ezetimibe 10 MG / simvastatin 10 MG Oral Tablet [Vytorin]Original Medicationezetimibe 10 MG / simvastatin 10 MG Oral Tablet [Vytorin] *Reorder from [employer] for eRx and Interaction Alerts* 10/28/2016 Unknown valsartan 40 MG Oral Tablet [Diovan] ORAL valsartan 40 MG Oral Tablet [Diovan]Original Medicationvalsartan 40 MG Oral Tablet [Diovan] *Reorder from [employer] for eRx and Interaction Alerts* 10/28/2016 Unknown Vital Signs Height 65 in 08/22/2024 Weight 179 lbs 08/22/2024 BMI 29.78 kg/m2 08/22/2024 Height-cm 165.1 cm 08/22/2024 Weight-kg 81.19 kg 08/22/2024 Encounters Encounter Location Date Provider Diagnosis [address] [id number] 08/22/2024 LIN FENG Tinea unguium B35.1 ; Pain in right toe(s) M79.674 ; Pain in left toe(s) M79.675 ; Atherosclerosis of [place]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 Provider Name:LIN VARGAS, 10/24/2024 11:10:00 AM, [address] [place] [address], [id number], Progress Notes * MELISSA VALERIO EDOB:[birth year] (83 yo F)Acc No.[id number]:08/22/2024 Patient: MELISSA STEWART Provider: Anusha FENG :1940 A ge:83 Y S ex:Female Date:08/22/2024 Address:[address] [place], [place] [id number] Subjective: * Chief Complaints: * 1 . [...] Patient denies c hest pain, history of RI, irregular heartbeat. M usculoskeletal: Patient complains of [...] Medicationcitalopram 10 MG Oral Tablet *Reorder from [facility] for eRx and Interaction Alerts*, Unknown ezetimibe 10 MG / simvastatin 10 MG Oral Tablet [Vytorin] ORAL , Notes to Pharmacist: ezetimibe 10 MG / simvastatin 10 MG Oral Tablet [Vytorin]Original Medicationezetimibe 10 MG / simvastatin 10 MG Oral Tablet [Vytorin] *Reorder from [facility] for eRx and Interaction Alerts*, Unknown metformin hydrochloride 500 MG Oral Tablet ORAL , Notes to Pharmacist: metformin hydrochloride 500 MG Oral TabletOriginal Medicationmetformin hydrochloride 500 MG Oral Tablet *Reorder from [facility] for eRx and Interaction Alerts*, Unknown valsartan 40 MG Oral Tablet [Diovan] ORAL , Notes to Pharmacist: valsartan 40 MG Oral Tablet [Diovan]Original Medicationvalsartan 40 MG Oral Tablet [Diovan] *Reorder from [facility] for eRx and Interaction Alerts*, Medication [...] - M79.675 4 . 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 * Procedure Codes: * Electronic signature of AILYN FENG DPM on 10/04/2024 at 10:21 AM CDT Sign off status: Pending * Provider: Anusha FENG Date: 0 08/22/2024 Generated for Jacquie Dawson/Rhiannon on: 0 10/04/2024 10:21 AM CDT History and Physical Notes * [...]
--- OUTSIDE RECORDS SUMMARY | 2024-10-04 10:22 | XMS_ITS | Encounter Summary ---
Author Organization [facility] Address [address] [place] [address] Phone Care Team Providers Care Supervisor Body Assembly Name Role Phone Christian Cardozo MD Primary Care Provider Encounter Details Date Type Department Care Team (Latest Contact Info) Description 08/04/2023 [facility] [address] [place] [address] Dhiraj Witt MD [address] [facility] [address] [place] [address] Encounter for other specified special examinations (Primary [...] Primary documented in this encounter Care Teams Supervisor Body Assembly Relationship Specialty Start Date End Date Christian Cardozo MD [address] [place] [address] PCP - General Family Medicine 08/04/23 documented as of this encounter
--- OUTSIDE RECORDS SUMMARY | 2024-10-04 10:22 | XMS_ITS | Clinical Summary ---
Author Organization [facility] Address [address] [place] [address] Phone Care Team Providers Care Motion Study Technician Name Role Phone Christian Cardozo MD [...] 8:36 AM CDT Height 165.1 cm (5' 5) 10/31/2023 8:36 AM CDT Body Mass Index 28.21 10/31/2023 8:36 AM CDT Plan of Treatment Health Maintenance Due Date Last Done Comments DEXA Bone Density 1940 Hepatitis C Virus (HCV) Screening 1940 TdaP Immunization 1940 Zoster Immunization (1 of 2) 12/13/1991 Respiratory Syncytial Virus (RSV) Immunization (Adult) (1 - 1-dose 75+ series) 2016 SARS-COV-2 Immunization ( season) 2023 03/11/2021, 07/01/2020, 06/03/2020 Influenza Immunization (#1) 2024 1008/2022, 01/03/2022, 12/31/2020, Additional history exists Pneumococcal Immunization (50+ years) Completed 12/14/2017, 12/24/2012 Hepatitis B Immunization Aged Out No longer eligible based on patient's age to complete this topic Human Papillomavirus (HPV) Immunization Aged Out No longer eligible based on patient's age to complete this topic Meningococcal Immunization (ACWY) Aged Out No longer eligible based on patient's age to complete this topic Rotavirus Immunization Aged Out No lo nger eligible based on patient's age to complete this topic Insurance [address] [place] [address] MEDICARE C BCBS PPO Care Teams Motion Study Technician Relationship Specialty Start Date End Date Christian Cardozo MD [address] [place] [address] PCP - General Family Medicine 08/04/23
--- OUTSIDE RECORDS SUMMARY | 2024-10-04 10:22 | XMS_ITS | Encounter Summary ---
Author Organization [facility] Address [facility] [place] [address] Care Team Providers Care Shampoo Person Name Role Phone Bianca Silverman Primary Care Provider [phone] Christian Cardozo MD Primary Care Provider [phone] Encounter Details Date Type Department Care Team (Latest Contact Info) Description 01/30/2018 Abstract [facility] , Tanner Souza MD Social History Tobacco Use Types Packs/Day Years Used Date Smoking Tobacco: Never Assessed Comments Unknown Sex and Gender Information Value Date Recorded Sex Assigned at Female 05/03/2024 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 Legal Sex Female 5:08 PM CDT Gender Identity Not on file Sexual Orientation Not on file documented as of this encounter Plan of Treatment Not on file documented as of this encounter Visit Diagnoses Not on filedocumented in this encounter Care Teams Shampoo Person Relationship Specialty Start Date End Date Bianca Silverman FNP [facility] [place] [address] PCP - General NURSE PRACTITIONER 02/22/19 03/13/24 Christian Cardozo MD [address] [facility] [address] [place] [address] PCP - General FAMILY PRACTICE 03/14/24 documented as of this encounter
--- OUTSIDE RECORDS SUMMARY | 2024-10-04 10:22 | XMS_ITS | Encounter Summary ---
Author Organization [facility] Address [address] [place] [address] Care Team Providers Care Sheet Metal Mechanic Name Role Phone Christian Cardozo MD Primary Care Provider Encounter Details Date Type Department Care Team (Late st Contact Info) Description 06/11/2024 Orders Only [facility] Information Management [address] [place] [address] Scanning, Provider Social History Tobacco Use Types Packs/Day Years Used Date Smoking Tobacco: Never Smokeless Tobacco: Never Alcohol Use Standard Drinks/Week Comments No 0 (1 standard drink = 0.6 oz pur e alcohol) Comments Unknown Sex and Gender Information Value Date Recorded Sex Assigned at Not on file Legal Sex Female 1:11 PM 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 Gender Identity Not on file Sexual Orientation Not on file documented as of this encounter Plan of Treatment Not on file documented as of this encounter Procedures Procedure Name Priority Date/Time Associated Diagnosis Comments SCAN - LABS 06/11/2024 documented in this encounter Results * SCAN - LABS (06/11/2024) us Provider Scanning Final Result documented in this encounter Visit Diagnoses Not on filedocumented in this encounter Care Teams Sheet Metal Mechanic Relationship Specialty Start Date End Date Christian Cardozo MD [address] [place] [address] PCP - General Family Medicine 06/14/18 documented as of this encounter
--- OUTSIDE RECORDS SUMMARY | 2024-10-04 10:22 | XMS_ITS | Patient Health Record ---
Author Organization [facility] Address [address] [place], [place] [address] Care Team Providers Care Harvest Worker Name Role Phone FRANCISCO FUCHS Unavailable [phone] Christian Cardozo Unavailable Unavailable CARLYLE MARINO Unavailable [phone] LIN FENG Unavailable [phone] Allergies No Known Allergies Reason For Referral No Information Medications Medication SIG (Take, Route, Frequency, Duration) Notes Start Date End Date Status valsartan 40 MG Oral Tablet [Diovan] ORAL valsartan 40 MG Oral Tablet [Diovan]Original Medicationvalsartan 40 MG Oral Tablet [Diovan] [facility]* 10/28/2016 Unknown ezetimibe 10 MG / simvastatin 10 MG Oral Tablet [Vytorin] ORAL ezetimibe 10 MG / simvastatin 10 MG Oral Tablet [Vytorin]Original Medicationezetimibe 10 MG / simvastatin 10 MG Oral Tablet [Vytorin] *Reorder from [facility] for eRx and Interaction Alerts* 10/28/2016 Unknown metformin hydrochloride 500 MG Oral Tablet ORAL metformin hydrochloride 500 MG Oral TabletOriginal Medicationmetformin hydrochloride 500 MG Oral Tablet *Reorder from [facility] for eRx and Interaction Alerts* 10/28/2016 Unknown citalopram 10 MG Oral Tablet ORAL citalopram 10 MG Oral TabletOriginal Medicationcitalopram 10 MG Oral Tablet *Reorder from [facility] for eRx and Interaction Alerts* 10/28/2016 Unknown Immunizations Vaccine Route Administration Date Status Comme nts Influenza, high dose seasonal Unknown 01/02/2023 Admini stered Vital Signs Height-cm 165.1 cm 09/05/2024 Weight-kg 81.19 kg 09/05/2024 Height 65 in 09/05/2024 Weight 179 lbs 09/05/2024 BMI 29.78 kg/m2 09/05/2024 Encounters Encounter Location Date Provider Diagnosis [address] [id number] 08/22/2024 LIN PING Tinea unguium B35.1 ; Pain in right toe(s) M79.674 ; Pain in left toe(s) M79.675 ; Atherosclerosis of [place] arteries of extremities with intermittent claudication, bilateral legs I70.213 and Type 2 diabetes mellitus with other circulatory complications E11.[address] [id number] 08/29/2024 LIN FENG Tinea unguium B35.1 ; Pain in right toe(s) M79.674 ; Pain in left toe(s) M79.675 ; Atherosclerosis of [place] arteries of extremities with intermittent claudication, bilateral legs I70.213 ; Type 2 diabetes mellitus with other circulatory complications E11.59 and Other specified dermatitis L30.[address] [id number] 09/05/2024 LIN PING Tinea unguium B35.1 ; Pain in right toe(s) M79.674 ; Pain in left toe(s) M79.675 ; Atherosclerosis of [place] arteries of extremities with intermittent claudication, bilateral legs I70.213 ; Type 2 diabetes mellitus with other circulatory complications E11.59 and Other specified dermatitis L30.8 [facility] [address] [place], [place] [id number] 11/16/2023 CARLYLE MARINO Other hammer toe(s) (acquired), right foot M20.41 ; Tinea unguium B35.1 ; Other hammer toe(s) (acquired), left foot M20.42 ; Pain in right toe(s) M79.674 ; Pain in left toe(s) M79.675 ; Unspecified atherosclerosis of [place] arteries of extremities, bilateral legs I70.203 and Type 2 diabetes mellitus with diabetic peripheral angiopathy without gangrene E11.51 [facility] [address] [place], [place] [id number] 01/18/2024 CARLYLE VACALINSEY Other hammer toe(s) (acquired), right foot M20.41 ; Tinea unguium B35.1 ; Other hammer toe(s) (acquired), left foot M20.42 ; Pain in right toe(s) M79.674 ; Pain in left toe(s) M79.675 ; Unspecified atherosclerosis of [place] arteries of extremities, bilateral legs I70.203 and Type 2 diabetes mellitus with diabetic peripheral angiopathy without gangrene E11.51 [facility] [address], [place] [id number] 03/28/2024 FRANCISCO SNOOK Tinea unguium B35.1 ; Pain in right toe(s) M79.674 ; Pain in left toe(s) M79.675 ; Atherosclerosis of [place] arteries of extremities with intermittent claudication, bilateral legs I70.213 and Type 2 diabetes mellitus with other circulatory complications E11.[address] [id number] 05/30/2024 FRANCISCO SNOOK Tinea unguium B35.1 ; Pain in right toe(s) M79.674 ; Pain in left toe(s) M79.675 ; Atherosclerosis of [place] arteries of extremities with intermittent claudication, bilateral legs I70.213 and Type 2 diabetes mellitus with other circulatory complications E11.59 Assessments Encounter Date Diagnosis (ICD Code) Assessment Notes Treatment Notes Treatment Clinical Notes Section Notes 11/16/2023 Tinea unguium (ICD-10 - B35.1) Aseptic [...] subungual debris and necrotic tissue removed 08/22/2024 Tinea unguium (ICD-10 - B35.1) NAIL DEBRIDEMENT: Nails 1-5 Bilateral were debrided extensively with nail nippers and emery board, reducing length and girth to pink healthy tissue with any subungual debris and necrotic tissue removed 08/29/2024 Tinea unguium (ICD-10 - B35.1) 08/29/2024 Pain in right toe(s) (ICD-10 - M79.674) 09/05/2024 Tinea unguium (ICD-10 - B35.1) 09/05/2024 Pain in right toe(s) (ICD-10 - M79.674) 09/05/2024 Pain in left toe(s) (ICD-10 - M79.675) 08/29/2024 Pain in left toe(s) (ICD-10 - M79.675) 08/22/2024 Pain in right toe(s) (ICD-10 - M79.674) 05/30/2024 Pain in right toe(s) (ICD-10 - M79.674) 03/28/2024 Pain in right toe(s) (ICD-10 - M79.674) 01/18/2024 Other hammer toe(s) (acquired), left foot (ICD-10 - M20.42) 11/16/2023 Other hammer toe(s) (acquired), left foot (ICD-10 - M20.42) 11/16/2023 Pain in right toe(s) (ICD-10 - M79.674) 01/18/2024 Pain in right toe(s) (ICD-10 - M79.674) 03/28/2024 Pain in left toe(s) (ICD-10 - M79.675) 05/30/2024 Pain in left toe(s) (ICD-10 - M79.675) 08/22/2024 Pain in left toe(s) (ICD-10 - M79.675) 08/29/2024 Atherosclerosis of [place] arteries of extremities with intermittent claudication, bilateral legs (ICD-10 - I70.213) Check and protect LE bilateral daily. Call if any changes or concerns. continue ROM stretches often through out the day. Call if symptoms are unresolving. return in 1 week 09/05/2024 Atherosclerosis of [place] arteries of extremities with intermittent claudication, [...] any problems or signs of infection immediately. 08/22/2024 Atherosclerosis of [place] arteries of extremities with intermittent claudication, bilateral legs (ICD-10 - I70.213) Check and protect LE bilateral daily. Call if any changes or concerns. 08/29/2024 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 The patient was instructed to check his feet daily to report any problems or signs of infection immediately. 03/28/2024 Atherosclerosis of [place] arteries of extremities with intermittent claudication, bilateral legs (ICD-10 - I70.213) 05/30/2024 Atherosclerosis of [place] arteries of extremities with intermittent claudication, bilateral legs (ICD-10 - I70.213) 01/18/2024 Pain in left toe(s) (ICD-10 - M79.675) 11/16/2023 Pain in left toe(s) (ICD-10 - M79.675) 11/16/2023 Unspecified atherosclerosis of [place] arteries of extremities, bilateral legs (ICD-10 - I70.203) Patient educated on risks and aggravating factors of PVD, including conservative treatment options such as a diet and exercise regimen to aid in slowing progression of vascular disease 01/18/2024 Unspecified atherosclerosis of [place] arteries of extremities, bilateral legs (ICD-10 [...] as well as the Amputation Prevention Guide. 08/22/2024 Type 2 diabetes mellitus with other [...] patient was instructed to keep it dry. 09/05/2024 Other specified dermatitis (ICD-10 - L30.8) [...] blood thinnr which was increase this week. 01/18/2024 Type 2 diabetes mellitus with diabetic [...] Treatment Next Appt Details Provider Name:LIN VARGAS, 10/24/2024 11:10:00 AM, [address] [place] [address], [id number], Insurance Providers Payer Name Payer Address Payer Phone Subscriber Number Group Number Insured Name Patient Relationship to Insured Coverage Start Date Coverage End Date [id number] [place] [address] [id number] MELISSA VALERIO Self - patient is the insured
--- OUTSIDE RECORDS SUMMARY | 2024-10-04 10:22 | XMS_ITS ---
Author Organization [facility] Address [address] [place], [place] [address] Care Team Providers Care Drapery Cutter Name Role Phone FRANCISCO FUCHS Unavailable [phone] Christian Cardozo Unavailable Unavailable LIN FENG Unavailable [phone] REASON FOR VISIT spot on ankle Medications Medication SIG (Take, Route, Frequency, Duration) Notes Start Date End Date Status valsartan 40 MG Oral Tablet [Diovan] ORAL valsartan 40 MG Oral Tablet [Diovan]Original Medicationvalsartan 40 MG Oral Tablet [Diovan] *Reorder from [facility] for eRx and Interaction Alerts* 10/28/2016 Unknown citalopram 10 MG Oral Tablet ORAL citalopram 10 MG Oral TabletOriginal Medicationcitalopram 10 MG Oral Tablet *Reorder from [facility] for eRx and Interaction Alerts* 10/28/2016 Unknown metformin hydrochloride 500 MG Oral Tablet ORAL metformin hydrochloride 500 MG Oral TabletOriginal Medicationmetformin hydrochloride 500 MG Oral Tablet *Reorder from [facility] for eRx and Interaction Alerts* 10/28/2016 Unknown ezetimibe 10 MG / simvastatin 10 MG Oral Tablet [Vytorin] ORAL ezetimibe 10 MG / simvastatin 10 MG Oral Tablet [Vytorin]Original Medicationezetimibe 10 MG / simvastatin 10 MG Oral Tablet [Vytorin] *Reorder from [facility] for eRx and Interaction Alerts* 10/28/2016 Unknown Vital Signs Height 65 in 08/29/2024 Weight 179 lbs 08/29/2024 BMI 29.78 kg/m2 08/29/2024 Height-cm 165.1 cm 08/29/2024 Weight-kg 81.19 kg 08/29/2024 Encounters Encounter Location Date Provider Diagnosis [address] [id number] 08/29/2024 LIN FENG Tinea unguium B35.1 ; Pain in right toe(s) M79.674 ; Pain in left toe(s) M79.675 ; Atherosclerosis of [place] arteries of extremities with intermittent claudication, bilateral [...] toe(s) (ICD-10 - M79.675) 08/29/2024 Atherosclerosis of [place] arteries of extremities with intermittent claudication, bilateral [...] Treatment Treatment Notes Assessment Notes Atherosclerosis of [place] ar teries of extremities with intermittent claudication, [...] develop. Provider Name:LIN VARGAS, 10/24/2024 11:10:00 AM, [address] [place] [address], [id number], Progress Notes * MELISSA VALERIO EDOB:[birth year] (83 yo F)Acc No.[id number]:08/29/2024 Patient: MARCELINO STEWARTANETTE Antonio Provider: Anusha FENG :1940 A ge:83 Y S ex:Female Date:08/29/2024 Address:[address] [place] [address] [place], [place] [id number] Subjective: * Chief Complaints: * 1 . [...] that the rash is painful. , MA: [facility]. * ROS: G eneral / Constitutional: [...] Medicationcitalopram 10 MG Oral Tablet *Reorder from [facility] for eRx and Interaction Alerts*, Unknown ezetimibe 10 MG / simvastatin 10 MG Oral Tablet [Vytorin] ORAL , Notes to Pharmacist: ezetimibe 10 MG / simvastatin 10 MG Oral Tablet [Vytorin]Original Medicationezetimibe 10 MG / simvastatin 10 MG Oral Tablet [Vytorin] *Reorder from [facility] for eRx and Interaction Alerts*, Unknown metformin hydrochloride 500 MG Oral Tablet ORAL , Notes to Pharmacist: metformin hydrochloride 500 MG Oral TabletOriginal Medicationmetformin hydrochloride 500 MG Oral Tablet *Reorder from [facility] for eRx and Interaction Alerts*, Unknown valsartan 40 MG Oral Tablet [Diovan] ORAL , Notes to Pharmacist: valsartan 40 MG Oral Tablet [Diovan]Original Medicationvalsartan 40 MG Oral Tablet [Diovan] *Reorder from [facility] for eRx and Interaction Alerts*, Medication List [...] - M79.675 4 . 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 * Procedure Codes: 23905 APPLICATION OF PASTE BOOT. * Electronic signature of AILYN FENG DPM on 10/04/2024 at 10:21 AM CDT Sign off status: Pending * Provider: Anusha FENG Date: 0 08/29/2024 Generated for Jacquie lord/Robert/Rhiannon on: 0 10/04/2024 10:21 AM CDT History [...]
--- OUTSIDE RECORDS SUMMARY | 2024-10-04 10:22 | XMS_ITS | Clinical Summary ---
Author Organization [facility] [address] Address [address] [place] [address] Care Team Providers Care Sausage Tier Name Role Phone Christian Cardozo MD Primary [...] daily 90 tablet 3 09/18/19 24 Active atorvastatin (LIPITOR) 80 mg tablet Take 1 tablet (80 mg total) by mouth daily 06/24/19 25 Active hydrALAZINE (APRESOLINE) 50 mg tablet Take 1 tablet (50 mg total) by mouth 3 (three) times a day 05/31/19 25 Active warfarin (COUMADIN) 2 mg tabletIndications:C hronic anticoagulation TAKE 2 TABLETS BY MOUTH ONCE DAILY ON MONDAY AND MONDAY, THEN TAKE 3 TABLETS ON ALL OTHER DAYS OR DIRECTED 76 tablet 2 08/21/19 25 Active Active Problems Problem Noted Date Diagnosed Date Hyperglycemia 05/10/2018 Delirium 05/10/2018 Atrial fibrillation with RVR 05/10/2018 Coronary artery disease of n ative artery of [place] heart with stable angina pectoris 05/07/2018 Overview (05/08/2018): Added automatically from request for surgery [id number] S/P CABG (coronary artery bypass graft) Type 2 diabetes mellitus with other specified co mplication Encounters Date Type Department Care Team Description 09/23/2024 Anticoagulation Visit [facility] [address] [place] [phone] Didi Wills RN 09/09/2024 Anticoagulation Visit [facility] [address] [place] [phone] Didi Wills RN 08/30/2024 Anticoagulation Visit [facility] Cardiology [address] [place] [address] [phone] Beni Kebede RN 08/23/2024 Anticoagulation Visit [facility] Cardiology [address] [place] [phone] Beni Kebede RN 08/21/2024 Anticoagulation Visit [facility] Cardiology [address] [place] [address] [place] [phone] Beni Kebede RN 08/21/2024 Telephone [facility] Cardiology [address] [place] [address] [place] [address] [phone] Twin Brar MD 08/20/2024 [address] [place] [phone] Twin Brar MD 08/20/2024 Telephone [address] [place] [address] [phone] Macey Espinosa NP 08/12/2024 Telephone [address] [place] [phone] Twin Brar MD 08/09/2024 Anticoagulation Visit [address] [place] [address] [phone] Beni Kebede RN 08/09/2024 Telephone [address] [place] [address] [phone] Twin Brar MD 07/23/2024 11:30 AM CDT Office Visit [address] [place] [place] [address] [phone] Macey Espinosa NP NSTEMI (non-ST elevated myocardial infarction) (HCC) (Primary Dx); Coronary artery disease of [place] artery of [place] heart with stable angina pectoris; Status post coronary angiogram; Chronic anticoagulation; Hospital discharge follow-up 07/22/2024 Orders Only [facility] Cardiology [address] [place] [address] [place] [address] [phone] Odilia Brothers MD 07/19/2024 Orders Only [place] [address] [place] [address] [phone] Zhen Oliveira MD from Last 3 Months Surgical History [...] on file Legal Sex Female 1:11 PM ROLLER INSPECTOR AND MENDER Gender Identity Not on file Sexual Orientation [...] 11:56 AM CDT Height 165.1 cm (5' 5) 07/23/2024 11:56 AM CDT Body Mass Index [...] Priority Date/Time Associated Diagnosis Comments PROTIME-INR Routine 09/21/2024 PROTIME-INR Routine 09/05/2024 PROTIME-INR Routine 08/29/2024 PROTIME-INR Routine 08/23/2024 PROTIME-INR Routine 08/20/2024 PROTIME-INR Routine 08/09/2024 CARDIOLOGY DOCUMENT SCAN Routine 07/20/2024 5:26 PM CDT CARDIOLOGY DOCUMENT SCAN Routine 07/19/2024 5:22 PM CDT CARDIOLOGY DOCUMENT SCAN Routine 07/19/2024 5:06 PM CDT CARDIOLOGY DOCUMENT SCAN Routine 07/18/2024 5:05 PM CDT CARDIOLOGY DOCUMENT SCAN Routine 07/17/2024 5:01 PM CDT CARDIOLOGY DOCUMENT SCAN Routine 07/16/2024 8:28 AM CDT CARDIOLOGY DOCUMENT SCAN Routine 07/15/2024 8:14 AM CDT LIPID PANEL Routine 01/08/2024 8:58 AM CDT EGFR STAT 05/16/2018 9:14 AM ROLLER INSPECTOR AND MENDER HEMOGLOBIN A1C Routine 05/07/2018 7:28 PM ROLLER INSPECTOR AND MENDER from Last 3 Months or Most Recently Relevant to Health Maintenance Results * (ABNORMAL) Protime-INR (09/21/2024) INR 1.20(A) 0.90 - 1.10 EXTERNAL LAB Blood us Historical Provider LAB BLOOD ORDERABLES Shelley l Result EXTERNAL LAB * Protime-INR (09/05/2024) INR 1.10 0.90 - 1.10 EXTERNAL LAB Blood Result [facility] Provider MD LAB BLOOD ORDERABLES Shelley l Result EXTERNAL LAB * (ABNORMAL) Protime-INR (08/29/2024) INR 1.20(A) 0.90 - 1.10 EXTERNAL LAB Blood 08/29/2024 Result [facility] Provider MD LAB BLOOD ORDERABLES Shelley l Result EXTERNAL LAB * (ABNORMAL) Protime-INR (08/23/2024) INR 4.20(A) 0.90 - 1.10 EXTERNAL LAB Blood 08/23/2024 Result [facility] Provider MD LAB BLOOD ORDERABLES Shelley l Result EXTERNAL LAB * (ABNORMAL) Protime-INR (08/20/2024) INR 20.00(A) 0.90 - 1.10 EXTERNAL LAB Comment:greater than 20 Blood 08/20/2024 Result [facility] Provider MD LAB BLOOD ORDERABLES Shelley l Result EXTERNAL LAB * (ABNORMAL) Protime-INR (08/09/2024) INR 3.30(A) 0.90 - 1.10 EXTERNAL LAB Blood 08/09/2024 Result [facility] Provider MD LAB BLOOD ORDERABLES Shelley l Result EXTERNAL LAB * Cardiology Document Scan (07/20/2024 5:26 PM [...] CARDIAC SERVICES PROCEDURES F inal Result * Lipid panel (01/08/2024 8:58 AM CDT) SCRIBED Cholesterol, Total 150 <200 EXTERNAL LAB SCRIBED HDL 39 >40 EXTERNAL LAB SCRIBED LDL 63 <100 EXTERNAL LAB SCRIBED Triglycerides 242 <150 EXTERNAL LAB Blood Riki Perez MD LAB BLOOD ORDERABLES Edit ed Result - Final EXTERNAL LAB * eGFR (05/16/2018 9:14 AM ROLLER INSPECTOR AND MENDER) eGFR 49 mL/min/1.7 3 m2 JACOB SILVER Comment: Interpretive Data Reference Interval Normal >/= 90 mL/min/1.73m2 Mildly decreased* 60 - 89 mL/min/1.73m2 Mildly to moderately decreased 45 - 59 mL/min/1.73m2 Moderately to severely decreased 30 - 44 mL/min/1.73m2 Severely decreased 15 - 29 mL/min/1.73m2 Kidney Failure < 15 mL/min/1.73m2 *Relative to young adult level If -Palest[place] multiply value by 1.16. Estimated glomerular filtration [...] 2015. Blood specimen (specimen) 05/16/2018 9:14 AM ROLLER INSPECTOR AND MENDER 05/16/2018 9:16 AM ROLLER INSPECTOR AND MENDER Narrative JACOB SILVER - 05/16/2018 9:47 AM ROLLER INSPECTOR AND MENDER us Pari Candelario NP LAB BLOOD ORDERABLES Shelley l Result Performing Organization Address City/[facility]/ZIP Co de Phone Number JACOB [address] [address] Department [place] [address] * (ABNORMAL) Hemoglobin A1c (05/07/2018 7:28 PM ROLLER INSPECTOR AND MENDER) Hgb A1C 9.0(H) 4.0 - 5.6 % JACOB SILVER Estimated Average Glucose 212 mg/dL JACOB SILVER Comment: The ADA recommends reporting an estimated Average Glucose (eAG) with all Hemoglobin A1c results using the equation derived from a study of 507 normal and diabetic adults. Minority populations were underrepresented and children were not included. (Diabetes Care 31:8327-1339, 2008). The eAG is not equivalent to a fasting glucose. Blood specimen (specimen) 05/07/2018 7:28 PM ROLLER INSPECTOR AND MENDER 05/07/2018 8:02 PM ROLLER INSPECTOR AND MENDER Narrative JACOB SILVER - 05/07/2018 8:18 PM ROLLER INSPECTOR AND MENDER Luke Magana MD LAB BLOOD ORDERABLES Final R esult JACOB [address] [address] [place] [address] from Last 3 Months or Most Recently Relevant to Health Maintenance Insurance MEDICARE [facility] MEDICARE [address] [employer] [place] [employer] MEDICARE PPO Advance Directives For more information, please contact: [phone] * Full Code (Latest Code Status on File) Date Activated Date Inactivated Comments 05/18/2018 7:34 PM * Full Code Date Activated Date Inactivated Comments 05/08/2018 3:11 PM 05/16/2018 5:35 PM Care Teams Sausage Tier Relationship Specialty Start Date End Date Christian Cardozo MD [address] [facility] [address] [place] [address] PCP - General Family Medicine 06/14/18
--- OUTSIDE RECORDS SUMMARY | 2024-10-04 10:22 | XMS_ITS | Encounter Summary ---
Author Organization [facility] Address [facility] [place] [address] Care Team Providers Care Liquid Natural Gas Plant Operator Name Role Phone Bianca Silverman Primary Care Provider [phone] Christian Cardozo MD Primary Care Provider [phone] Encounter Details Date Type Department Care Team (Late st Contact Info) Description 09/01/2018 Abstract [facility] CONVERSION [address] [place] [address] , Generic Conversion, Social History Tobacco Use Types Packs/Day Years Used Date Smoking Tobacco: Never Assessed Comments Unknown Sex and Gender Information Value Date Recorded Sex Assigned at Female 05/03/2024 2:10 PM WIRELESS COMMUNICATIONS ENGINEER Legal Sex Female 5:08 PM CDT Gender Identity Not on file Sexual Orientation Not on file documented as of this encounter Plan of Treatment Not on file documented as of this encounter Visit Diagnoses Not on filedocumented in this encounter Care Teams Liquid Natural Gas Plant Operator Relationship Specialty Start Date End Date Bianca Silverman FNP [address] [place] [address] PCP - General NURSE PRACTITIONER 02/22/19 03/13/24 Christian Cardozo MD [address] [facility] [address] [place] [address] PCP - General FAMILY PRACTICE 03/14/24 documented as of this encounter
--- OUTSIDE RECORDS SUMMARY | 2024-10-04 10:23 | XMS_ITS | Encounter Summary ---
Author Organization [facility] Address formerly [facility] [place] [address] Care Team Providers Care Boiler Blower Name Role Phone Bianca Silverman Primary Care Provider [phone] Christian Cardozo MD Primary Care Provider [phone] Encounter Details Date Type Department Care Team (Late st Contact Info) Description 01/27/2014 Abstract [facility] CONVERSION [address] [place] [address] , Generic ConversionMD Social History Tobacco Use Types Packs/Day Years Used Date Smoking Tobacco: Never Assessed Comments Unknown Sex and Gender Information Value Date Recorded Sex Assigned at Female 05/03/2024 2:10 PM LOCOMOTIVE FIRER/FIREMAN Legal Sex Female 5:08 PM CDT Gender Identity Not on file Sexual Orientation Not on file documented as of this encounter Plan of Treatment Not on file documented as of this encounter Visit Diagnoses Not on filedocumented in this encounter Care Teams Boiler Blower Relationship Specialty Start Date End Date Bianca Silverman FNP [facility] [place] [address] PCP - General NURSE PRACTITIONER 02/22/19 03/13/24 Christian Cardozo MD [address] [facility] [address] [place] [address] PCP - General FAMILY PRACTICE 03/14/24 documented as of this encounter
--- OUTSIDE RECORDS SUMMARY | 2024-10-04 10:23 | XMS_ITS ---
Author Organization [facility] Address [address] [place], [place] [id number] Care Team Providers Care District Administrative Assistant Name Role Phone FRANCISCO FUCHS Unavailable [phone] Christian Cardozo Unavailable Unavailable LIN FENG Unavailable [phone] REASON FOR VISIT check edema Medications Medication SIG (Take, Route, Frequency, Duration) Notes Start Date End Date Status valsartan 40 MG Oral Tablet [Diovan] ORAL valsartan 40 MG Oral Tablet [Diovan]Original Medicationvalsartan 40 MG Oral Tablet [Diovan] *Reorder from [facility] for eRx and Interaction Alerts* 10/28/2016 Unknown ezetimibe 10 MG / simvastatin 10 MG Oral Tablet [Vytorin] ORAL ezetimibe 10 MG / simvastatin 10 MG Oral Tablet [Vytorin]Original Medicationezetimibe 10 MG / simvastatin 10 MG Oral Tablet [Vytorin] *Reorder from [facility] for eRx and Interaction Alerts* 10/28/2016 Unknown metformin hydrochloride 500 MG Oral Tablet ORAL metformin hydrochloride 500 MG Oral TabletOriginal Medicationmetformin hydrochloride 500 MG Oral Tablet *Reorder from [facility] for eRx and Interaction Alerts* 10/28/2016 Unknown citalopram 10 MG Oral Tablet ORAL citalopram 10 MG Oral TabletOriginal Medicationcitalopram 10 MG Oral Tablet *Reorder from [facility] for eRx and Interaction Alerts* 10/28/2016 Unknown Vital Signs Height 65 in 09/05/2024 Weight 179 lbs 09/05/2024 BMI 29.78 kg/m2 09/05/2024 Height-cm 165.1 cm 09/05/2024 Weight-kg 81.19 kg 09/05/2024 Encounters Encounter Location Date Provider Diagnosis [address] [id number] 09/05/2024 LIN FENG Tinea unguium B35.1 ; Pain in right toe(s) M79.674 ; Pain in left toe(s) M79.675 ; Atherosclerosis of [place] arteries of extremities with intermittent claudication, bilateral [...] toe(s) (ICD-10 - M79.675) 09/05/2024 Atherosclerosis of [place] arteries of extremities with intermittent claudication, bilateral [...] Treatment Treatment Notes Assessment Notes Atherosclerosis of [place] ar teries of extremities with intermittent claudication, [...] develop. Provider Name:LIN VARGAS, 10/24/2024 11:10:00 AM, [address] [place] [address], [id number], Progress Notes * MELISSA VALERIO EDOB:[birth year] (83 yo F)Acc No.[id number]:09/05/2024 Patient: MELISSA STEWART Provider: Anusha FENG :1940 A ge:83 Y S ex:Female Date:09/05/2024 Address:[address] [place], [place] [id number] Subjective: * Chief Complaints: * 1 . Check edema. * HPI: H PI: Follow Up Visit P atient presents for follow-up visit for a rash on the calf. Patient states that it is better but not completely gone yet. , MA: [facility]. * ROS: G eneral / [...] Medicationcitalopram 10 MG Oral Tablet *Reorder from [facility] for eRx and Interaction Alerts*, Unknown ezetimibe 10 MG / simvastatin 10 MG Oral Tablet [Vytorin] ORAL , Notes to Pharmacist: ezetimibe 10 MG / simvastatin 10 MG Oral Tablet [Vytorin]Original Medicationezetimibe 10 MG / simvastatin 10 MG Oral Tablet [Vytorin] *Reorder from [facility] for eRx and Interaction Alerts*, Unknown metformin hydrochloride 500 MG Oral Tablet ORAL , Notes to Pharmacist: metformin hydrochloride 500 MG Oral TabletOriginal Medicationmetformin hydrochloride 500 MG Oral Tablet *Reorder from [facility] for eRx and Interaction Alerts*, Unknown valsartan 40 MG Oral Tablet [Diovan] ORAL , Notes to Pharmacist: valsartan 40 MG Oral Tablet [Diovan]Original Medicationvalsartan 40 MG Oral Tablet [Diovan] *Reorder from [facility] for eRx and Interaction Alerts*, Medication [...] - M79.675 4 . 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 * Procedure Codes: * Electronic signature of AILYN FENG DPM on 10/04/2024 at 10:22 AM CDT Sign off status: Pending * Provider: Anusha FENG Date: 0 09/05/2024 Generated for Jacquie Oshea on: 0 10/04/2024 10:22 AM CDT History and Physical Notes * [...]
--- OUTSIDE RECORDS SUMMARY | 2024-10-04 10:23 | XMS_ITS | Clinical Summary ---
Author Organization [facility] Address [address], [place] [address] Phone Care Team Providers Care Insulation And Flooring Assembler Name Role Phone Unavailable Primary Care Provider [...] Comments Blood Pressure 152/80 04/23/2018 12:01 AM REGULATORY PRODUCT MANAGER Pulse - - Temperature 36.7 C (98.1 F) 04/23/2018 12:01 AM REGULATORY PRODUCT MANAGER Respiratory Rate - - Oxygen Saturation - - Inhaled Oxygen Concentration - - Weight 79.4 kg (175 lb) 04/23/2018 12:01 AM REGULATORY PRODUCT MANAGER Height 162.6 cm (5' 4) 04/23/2018 12:01 AM REGULATORY PRODUCT MANAGER Body Mass Index 30.04 04/23/2018 12:01 AM REGULATORY PRODUCT MANAGER Plan of Treatment Not on file
--- OUTSIDE RECORDS SUMMARY | 2024-10-04 10:23 | XMS_ITS | Encounter Summary ---
Author Organization [facility] Address [address] [place] [address] Care Team Providers Care Master Of Ceremonies Name Role Phone Christian Cardozo MD Primary Care Provider Encounter Details Date Type Department Care Team (Late st Contact Info) Description 10/02/2023 Orders Only [facility] Health Information Management [address] [place] [address] Scanning, Provider Social History Tobacco Use Types Packs/Day Years Used Date Smoking Tobacco: Never Smokeless Tobacco: Never Alcohol Use Standard Drinks/Week Comments No 0 (1 standard drink = 0.6 oz pur e alcohol) Comments Unknown Sex and Gender Information Value Date Recorded Sex Assigned at Not on file Legal Sex Female 1:11 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
--- OUTSIDE RECORDS SUMMARY | 2024-10-04 10:23 | XMS_ITS | Referral Summary ---
Author Organization [place] [address] Address [address] [facility] [address] [place] [address] Care Team Providers Care Towing Pilot Name Role Phone Christian Cardozo MD Primary Care Provider Encounters Date Type Department Care Team Description 09/23/2024 Anticoagulation Visit [facility] [address] [place] [address] [address] [place] [phone] Didi Wills, RN 09/09/2024 Anticoagulation Visit [facility] [address] [place] [address] [address] [place] [address] Didi Wills, RN 08/30/2024 Anticoagulation Visit [facility] [address] [facility] [address] [place] [address] Beni Kebede RN 08/23/2024 Anticoagulation Visit [facility] Cardiology [address] [place] [address] [address] [place] [phone] Beni Kebede, BEST 08/21/2024 Anticoagulation Visit [facility] [address] [place] [address] [address] [place] [phone] Beni Kebede, RN 08/21/2024 Telephone [facility] [address] [facility] [address] [place] [address] Twin Brar MD 08/20/2024 Telephone [facility] [address] [place] [address] [address] [place] [phone] Twin Brar MD 08/20/[address] [address] Macey Espinosa NP 08/12/[address] [address] Twin Brar MD 08/09/2024 Anticoagulation Visit [address] [phone] Beni Kebede RN 08/09/[address] [address] Twin Brar MD 07/23/2024 11:30 AM CDT Office Visit [address] [phone] Macey Espinosa NP NSTEMI (non-ST elevated myocardial infarction) (HCC) (Primary Dx); 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; Status post coronary angiogram; Chronic anticoagulation; Hospital discharge follow-up 07/22/2024 Orders Only [address] [phone] Odilia Brothers MD 07/19/2024 Orders Only [address] [phone] Zhen Oliveira MD from Last 3 Months Allergies No [...] artery disease of n ative artery of hughes heart with stable angina pectoris 05/07/2018 Overview (05/08/2018): Added automatically from request for surgery [id number] S/P CABG (coronary artery bypass graft) Type [...] on file Legal Sex Female 1:11 PM QUILL WORKER Gender Identity Not on file Sexual [...] AM CDT EGFR STAT 05/16/2018 9:14 AM QUILL WORKER HEMOGLOBIN A1C Routine 05/07/2018 7:28 PM QUILL WORKER from Last 3 Months or Most Recently Relevant to Health Maintenance Results * (ABNORMAL) Protime-INR (09/21/2024) INR 1.20(A) 0.90 - 1.10 EXTERNAL LAB Blood Result [facility] Provider MD LAB BLOOD ORDERABLES Shelley l Result EXTERNAL LAB * Protime-INR (09/05/2024) INR 1.10 0.90 - 1.10 EXTERNAL LAB Blood Result [facility] Provider MD LAB BLOOD ORDERABLES Shelley l Result EXTERNAL LAB * (ABNORMAL) Protime-INR (08/29/2024) INR 1.20(A) 0.90 - 1.10 EXTERNAL LAB Blood 08/29/2024 Result [facility] Provider MD LAB BLOOD ORDERABLES Shelley l Result EXTERNAL LAB * (ABNORMAL) Protime-INR (08/23/2024) INR 4.20(A) 0.90 - 1.10 EXTERNAL LAB Blood 08/23/2024 Result [facility] Provider MD LAB BLOOD ORDERABLES Shelley l Result EXTERNAL LAB * (ABNORMAL) Protime-INR (08/20/2024) INR 20.00(A) 0.90 - 1.10 EXTERNAL LAB Comment:greater than 20 Blood 08/20/2024 Historical Provider MD LAB BLOOD ORDERABLES Shelley l Result Performing Organization Address City/[facility]/ZIP Co de Phone Number EXTERNAL LAB * (ABNORMAL) Protime-INR (08/09/2024) INR 3.30(A) 0.90 - 1.10 EXTERNAL LAB Blood 08/09/2024 Historical Provider MD LAB BLOOD ORDERABLES Shelley l Result Performing Organization Address [facility] Co de Phone Number EXTERNAL LAB * Cardiology Document Scan (07/20/2024 [...] CDT) Anatomical Region Laterality Modality Other us [facility] Winnie Brothers MD CV CARDIAC SERVICES PRO [...] SCRIBED Triglycerides 242 <150 EXTERNAL LAB Blood us Historical Provider LAB BLOOD ORDERABLES Edit ed Result - Final EXTERNAL LAB * eGFR (05/16/2018 9:14 AM QUILL WORKER) eGFR 49 mL/min/1.7 3 m2 JACOB SILVER Comment: Interpretive Data Reference Interval Normal >/= 90 mL/min/1.73m2 Mildly decreased* 60 - 89 mL/min/1.73m2 Mildly to moderately decreased 45 - 59 mL/min/1.73m2 Moderately to severely decreased 30 - 44 mL/min/1.73m2 Severely decreased 15 - 29 mL/min/1.73m2 Kidney Failure < 15 mL/min/1.73m2 *Relative to young adult level If -Swiss multiply value by 1.16. Estimated glomerular filtration [...] 2015. Blood specimen (specimen) 05/16/2018 9:14 AM QUILL WORKER 05/16/2018 9:16 AM QUILL WORKER Narrative JACOB SILVER - 05/16/2018 9:47 AM QUILL WORKER Pari Candelario NP LAB BLOOD ORDERABLES Shel[place] l Result Performing Organization Address [facility] de Phone Number JACOB [address] [place] [address] * (ABNORMAL) Hemoglobin A1c (05/07/2018 7:28 PM QUILL WORKER) Hgb A1C 9.0(H) 4.0 - 5.6 % [facility] Estimated Average Glucose 212 mg/dL [facility] Comment: The ADA recommends reporting an estimated Average Glucose (eAG) with all Hemoglobin A1c results using the equation derived from a study of 507 normal and diabetic adults. Minority populations were underrepresented and children were not included. (Diabetes Care 31:5455-7243, 2008). The eAG is not equivalent to a fasting glucose. Blood specimen (specimen) 05/07/2018 7:28 PM QUILL WORKER 05/07/2018 8:02 PM QUILL WORKER Narrative JACOB - 05/07/2018 8:18 PM QUILL WORKER Luke Magana MD LAB BLOOD ORDERABLES Final R esult Performing Organization Address [facility] de Phone Number [facility] [address] [place] [address] from Last 3 Months or Most Recently Relevant to Health Maintenance Insurance MEDICARE [facility]LY [facility] MEDICARE FOR[facility]LY [facility] [employer] CHOICE MEDICARE PPO Advance Directives For more information, please contact: [phone] * Full Code (Latest Code Status on File) Date Activated Date Inactivated Comments 05/18/2018 7:34 PM * Full Code Date Activated Date Inactivated Comments 05/08/2018 3:11 PM 05/16/2018 5:35 PM Care Teams Towing Pilot Relationship Specialty Start Date End Date Christian Cardozo MD [address] [facility] [address] [place], [place] [phone] PCP - General Family Medicine 06/14/18
--- OUTSIDE RECORDS SUMMARY | 2024-10-04 10:23 | XMS_ITS | Clinical Summary ---
Author Organization [facility] Address [address] [place] [address] Care Team Providers Care Scrum Master Name Role Phone Christian Cardozo MD Primary Care Provider [phone] Allergies No known active allergies Medications amLODIPine [...] 8 mg; remaining days 6 mg Active Family History Medical History Relation Comments Breast Cancer Mother Relation Status Comments Mother Social History Tobacco Use Types Packs/Day Years Used Date Smoking Tobacco: Never Smokeless Tobacco: Never Alcohol Use Standard Drinks/Week Comments Not Currently 0 (1 standard drink = 0.6 oz pur e alcohol) Comments No Sex and Gender Information Value Date Recorded Sex Assigned at Female 05/03/2024 2:10 PM AIRFREIGHT LOADING SUPERVISOR Legal Sex Female 5:08 PM CDT Gender [...] 12:27 PM CDT Height 165.1 cm (5' 5) 06/24/2021 12:27 PM CDT Body Mass Index [...] Procedure Name Priority Date/Time Associated Diagnosis Comments LIPID PANEL Routine 06/11/2024 10:39 AM CDT Type 2 diabetes mellitus with ESRD (end-stage renal disease) ([facility]) Inadequately controlled diabetes mellitus ([facility]) Encounter for long-term (current) use of insulin ([facility]) Other specified abnormal findings of blood chemistry Chronic kidney disease, unspecified HEMOGLOBIN, GLYCOSYLATED Routine 05/09/2012 11:40 AM AIRFREIGHT LOADING SUPERVISOR from Last 3 Months or Most Recently Relevant to Health Maintenance Results * (ABNORMAL) LIPID PANEL (06/11/2024 10:39 AM CDT) CHOLESTEROL 162 <200.0 MG/DL 06/11/2024 11:04 AM [facility] TRIGLYCERIDES 173(H) <150 MG/DL 06/11/2024 11:04 AM [facility] HDL 44 >40.0 MG/DL 06/11/2024 11:04 AM [facility] LDL (CALCULATED) 83 <100 MG/DL 06/11/2024 11:04 AM [facility] NON HDL CHOLESTEROL 118 <130 MG/DL 06/11/2024 11:04 AM [facility] CHOL/HDL RATIO 3.7 0.0 - 4.5 06/11/2024 11:04 AM [facility] VLDL CALCULATION 35 5 - 55 MG/DL 06/11/2024 11:04 AM [facility] LIPID INTERPRETATION 06/11/2024 11:04 AM [facility] Comment: NIH CONCENSUS REPORT [...] MD LABORATORY Final Result Performing Organization Address City/State/[facility] Co de Phone Number [facility] [address] [place] [address], * (ABNORMAL) HEMOGLOBIN, GLYCOSYLATED (05/09/2012 11:40 AM AIRFREIGHT LOADING SUPERVISOR) HGB A1C 6.9 INCREASED RISK OF DIABETES <5.7% NON-DIABETES 5.7-6.4% INCREASED RISK FOR FUTURE DIABETES > OR = 6.5 CONSISTENT WITH DIABETES STANDARDS OF MEDICAL CARE IN DIABETES-2010 DIABETES CARE, 33(SUPP 1): S1-S61,2010 (H) <5.7 % [employer] TO EPIC CONVERSION 05/09/2012 11:4 0 AM AIRFREIGHT LOADING SUPERVISOR 05/09/2012 11:40 AM AIRFREIGHT LOADING SUPERVISOR Narrative [employer] TO EPIC CONVERSION - 05/09/2012 12:21 PM AIRFREIGHT LOADING SUPERVISOR Result Communication: No patient communication needed at this time Ahsan Cash MD LABORATORY Final Result Performing Organization Address City/[facility] Co de Phone Number [employer] TO EPIC CONVERSION from Last 3 Months or Most Recently Relevant to Health Maintenance Insurance [employer] Care Teams Scrum Master Relationship Specialty Start Date End Date Christian Cardozo MD [address] [place] [address] PCP - General FAMILY PRACTICE 03/14/24
[2024-10-04 10:27] LABS: Hematocrit 36.9 % (35.0-42.0); Hemoglobin 11.6 g/dL (11.7-13.8); Immature Granulocyte Percent A 0.3 % (0.0-0.0); Lymphocytes Absolute Auto 1.71 K/mm3 (1.10-4.50); Mean Corpuscular HGB Conc 31.4 g/dL (32-36); Mean Corpuscular Hemoglobin 29.6 pg (27.0-31.0); Mean Corpuscular Volume 94.1 fL (78.0-102.0); Nucleated Red Blood Cells Absolute Auto 0.00 K/mm3 (0.00-0.00); Nucleated Red Blood Cells Perc 0.0 % (0-0.0); Platelet Count Result 282 K/mm3 (150-420); Red Blood Count 3.92 M/mm3 (4.20-5.40); White Blood Count 6.5 K/mm3 (4.8-10.8)
[2024-10-04 10:40] LABS: INR 1.1; Prothrombin Time 12.5 Seconds (9.50-12.1)
[2024-10-04 10:49] LABS: Alanine Aminotransferase 15 U/L (6-35); Albumin Level 3.9 g/dL (3.5-5.1); Alkaline Phosphatase 93 U/L (38-126); Anion Gap 4 mmol/L (4-12); Aspartate Amino Transferase 21 U/L (14-36); Bilirubin,Total 0.6 mg/dL (0.2-1.3); Blood Urea Nitrogen 20 mg/dL (7-17); Calcium 9.6 mg/dL (8.4-10.2); Carbon Dioxide 26 mmol/L (22-30); Chloride 109 mmol/L (98-107); Estimated Glomerular Filt Rate 44; Glucose 147 mg/dL (65-110); Magnesium 1.4 mg/dL (1.6-2.3); Osmolality Calculated 293 mOsm/kg (285-295); Potassium 5.2 mmol/L (3.4-5.0); Sodium 139 mmol/L (137-145); Total Protein 6.6 g/dL (6.3-8.2)
== END 2024-10-04 10:16 | disposition home or self-care (01) ==
LOC: CHSLAB 10:17
PROVIDERS: PCP Family Medicine; Visit Provider Physician Assistant
DX: N17.9 Acute kidney failure, unspecified (principal); D64.9 Anemia, unspecified; E83.42 Hypomagnesemia; N18.9 Chronic kidney disease, unspecified; I48.91 Unspecified atrial fibrillation
CPT/HCPCS: 36415; 80053; 83735; 85025; 85610

== ENCOUNTER 2024-11-07 08:46 | Outpatient (CLI) | payer MEDICARE, SELFPAY ==
--- OUTSIDE RECORDS SUMMARY | 2024-11-07 08:55 | XMS_ITS | Continuity of Care Document ---
Author Organization [employer] [facility] Address [address] [place] [address] Dr Sultana [address] [place] [phone] Phone Care Team Providers Care Pie Filling Mixer Name Role Phone Salcedo OD, Tod Unavailable [...] Office/outpat ient Visit, Est [facility], [address] [place] [address] [address], [place], [place], [id number], tel:[phone] [facility] No Information Oct-2 1-201 0 Salcedo OD Tod. [address] , [address], [place], [place], [facility] [place]. tel:[phone] [facility], [address] [place] [address] [address], [place], [place], [address], tel:[phone] [facility] No Information Oct-1 5-201 0 Salcedo OD Tod. [address], [place], [address], [place]. tel:[phone] [facility], [address] [place] [address] [address], [place], [place], [address], [place] tel:[phone] [facility] No Information Oct-0 6-201 0 Sharifa Cheung. [address], [place], [address], [place]. tel:[phone] Referring Provider: Jonatan Munoz [address], [place], [place], [facility]. tel:[phone] [facility], [address] [place] [address] [address], [place], [place], [address], [place] tel:[phone] [facility] No Information Sep-2 7-201 0 Doisy Edaye. [address] , [address], [place], [place], [facility], . tel:[phone] Referring Provider: Jonatan Munoz, [address], [place], [facility]. tel:[phone] Office/outpat ient Visit, Est [facility], [address], [place], [place], [address], [place] tel:[phone] [facility] No Information May-2 6-201 0 Doisy Edaye. [address] , [address], [place], [place], [facility], [place]. tel:[phone] [facility], [address] [place] [address] [address], [place], [place], [address], [place] tel:[phone] [facility] No Information May-1 2-201 0 Doisy Edaye. [address] , [address], [place], [place], [facility], [place]. tel:[phone] [facility], [address], [place], [place], [address], [place] tel:[phone] [facility] No Information May-0 4-201 0 Doisy Edaye. [address] , [address], [place], [facility], [place]. tel:[phone] [facility], [address], [place], [place], [address], [place] tel:[phone] [facility] No Information Apr-1 9-201 0 Doisy Edaye. [address], [address], [place], [facility], [place]. tel:[phone] Office/outpat ient Visit, Est [facility], [address], [place], [place], [address], [place] tel:[phone] [facility] No Information Mar-1 5-201 0 Sharifa Cheung. [address] , [address], [place], [facility], . tel:[phone] Office/outpat ient Visit, Est [facility], [address], [place], [place], [address], [place] tel:[phone] [facility] No Information Oct-2 6-200 9 Sharifa Cheung. [address] , [address], [place], [facility], [place]. tel:[phone] Referring Provider: Jonatan Munoz, [address], [place], [facility]. tel:[phone] [facility], [address], [place], [place], [address], [place] tel:[phone] [facility] No Information Davon-2 4-200 9 Sharifa Cheung. [facility] , [address], [place], [facility], [place]. tel:[phone] Referring Provider: Jonatan Munoz, [address], [place], [facility]. tel:[phone] [facility], [address], [place], [place], [address], [place] tel:[phone] [facility] No Information Davon-2 2-200 9 Sharifa Cheung. [facility] , [address], [place], [facility], [place]. tel:[phone] Referring Provider: Jonatan Munoz, [address], [place], [facility]. tel:[phone] [facility], [address], [place], [place], [address], [place] tel:[phone] [facility] No Information 9-200 9 Sharifa Edaye. [address] , [address], [place], [facility], . tel:[phone] Office/outpat ient Visit, [facility], [address] [place] [address] [address], [place], [place], [address], [place] tel:[phone] [facility] No Information Dec-2 3-200 8 Sharifa Edaye. [address] , [address], [place], [facility], [place]. tel:[phone] Referring Provider: Jonatan Munoz, [address], [place], [facility]. tel:[phone] Office/outpat ient Visit, [facility], [address] [place] [address] [address], [place], [place], [address], [place] tel:[phone] [facility] No Information 8-200 8 Sharifa Cheung. [address] , [address], [place], [facility], [place]. tel:[phone] [facility], [address], [place], [place], [address], [place] tel:[phone] [facility] No Information 2 1-200 8 Sharifa Cheung. [address] , [address], [place], [facility], [place]. tel:[phone] [facility], [address] [place] [address] [address], [place], [place], [address], [place] tel:[phone] [facility] No Information Jun-3 0-200 8 Sharifa Cheung. [address] , [address], [place], [address], [place]. tel:[phone] Referring Provider: Jonatan Munoz, [address], [place], [facility]. tel:[phone] [facility], [address] [place] [address] [address], [place], [place], [address], [place] tel:[phone] [facility] No Information Jun-2 2-200 8 Sharifa Cheung. [address], [address], [place], [facility], [place]. tel:[phone] Referring Provider: Jonatan Munoz, [address], [place], [facility]. tel:[phone] Office/outpat ient Visit, [facility], [address], [place], [place], [address], [place] tel:[phone] [facility] No Information Nirav-0 9-200 8 Sharifa Cheung. [facility] [address], [address], [place], [facility], [place]. tel:[phone] Office/outpat ient Visit, [facility], [address], [place], [place], [address], [place] tel:[phone] [facility] No Information Oct-1 7-200 7 Sharifa Cheung. [address], [address], [place], [facility], [place]. tel:[phone] [facility], [address] [place] [address] [address], [place], [place], [address], [place] tel:[phone] [facility] No Information Leonardo-1 0-200 7 Sharifa Cheung. [address], [address], [place], [facility], [place]. tel:[phone] Referring Provider: Jonatan Munoz, [address], [place], [address]. tel:[phone] Office/outpat ient Visit, [facility], [address], [place], [place], [address], [place] tel:[phone] [facility] No Information 7 Sharifa Cheung. [address] , [address], [place], [address], [place]. tel:[phone] Referring Provider: Jonatan Munoz [facility] [address], [place], [address]. tel:[phone] Family History Family Member Type Diagnosis Age At Onset No Information Payers Payer name Insurance type Covered democrat ID Authoriza tion(s) Medicare [facility] [id number] [employer] [place] Commercial [id number] Social History Type Description Quantity Date Captured [...]
--- OUTSIDE RECORDS SUMMARY | 2024-11-07 08:55 | XMS_ITS | Encounter Summary ---
Author Organization [facility] Healthcare Address [address] [place] [address] Care Team Providers Care Material Checker Name Role Phone Christian Cardozo MD Primary Care Provider Encounter Details Date Type Department Care Team (Late st Contact Info) Description 08/23/2024 Orders Only [facility] Information Management [address] [place] [address] Scanning, Provider Social History Tobacco Use Types Packs/Day Years Used Date Smoking Tobacco: Never Smokeless Tobacco: Never Alcohol Use Standard Drinks/Week Comments No 0 (1 standard drink = 0.6 oz pur e alcohol) Comments Unknown Sex and Gender Information Value Date Recorded Sex Assigned at Not on file Legal Sex 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 Gender Identity Not on file Sexual Orientation Not on file documented as of this encounter Plan of Treatment Not on file documented as of this encounter Procedures Procedure Name Priority Date/Time Associated Diagnosis Comments SCAN - LABS 08/23/2024 documented in this encounter Results * SCAN - LABS (08/23/2024) us Provider Scanning Final Result documented in this encounter Visit Diagnoses Not on filedocumented in this encounter Care Teams Material Checker Relationship Specialty Start Date End Date Christian Cardozo MD [address] [place] [address] PCP - General Family Medicine 06/14/18 documented as of this encounter
--- OUTSIDE RECORDS SUMMARY | 2024-11-07 08:55 | XMS_ITS | Encounter Summary ---
Author Organization [facility] Healthcare Address [address] [place] [address] Care Team Providers Care Land Department Head Name Role Phone Christian Cardozo MD Primary Care Provider Encounter Details Date Type Department Care Team (Late st Contact Info) Description 08/29/2024 Orders Only [facility] Health Information Management [address] [place] [address] Scanning, Provider Social History Tobacco Use Types Packs/Day Years Used Date Smoking Tobacco: Never Smokeless Tobacco: Never Alcohol Use Standard Drinks/Week Comments No 0 (1 standard drink = 0.6 oz pur e alcohol) Comments Unknown Sex and Gender Information Value Date Recorded Sex Assigned at Not on file 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 Gender Identity Not on file Sexual Orientation Not on file documented as of this encounter Plan of Treatment Not on file documented as of this encounter Procedures Procedure Name Priority Date/Time Associated Diagnosis Comments SCAN - LABS 08/29/2024 documented in this encounter Results * SCAN - LABS (08/29/2024) us Provider Scanning Final Result documented in this encounter Visit Diagnoses Not on filedocumented in this encounter Care Teams Land Department Head Relationship Specialty Start Date End Date Christian Cardozo MD [address] [place] [address] PCP - General Family Medicine 06/14/18 documented as of this encounter
--- OUTSIDE RECORDS SUMMARY | 2024-11-07 08:55 | XMS_ITS ---
Author Organization [facility] Address [address] [place], [place] [id number] Care Team Providers Care Track Greaser Name Role Phone FRANCISCO FUCHS Unavailable [phone] Christian Cardozo Unavailable Unavailable LIN FENG Unavailable [phone] Allergies No Known Allergies REASON FOR VISIT *General care Medications Medication SIG (Take, Route, Frequency, Duration) Notes Start Date End Date Status ezetimibe 10 MG / simvastatin 10 MG Oral Tablet [Vytorin] ORAL ezetimibe 10 MG / simvastatin 10 MG Oral Tablet [Vytorin]Original Medicationezetimibe 10 MG / simvastatin 10 MG Oral Tablet [Vytorin] *Reorder from [facility] for eRx and Interaction Alerts* 10/28/2016 Unknown citalopram 10 MG Oral Tablet ORAL citalopram 10 MG Oral TabletOriginal Medicationcitalopram 10 MG Oral Tablet *Reorder from [facility] for eRx and Interaction Alerts* 10/28/2016 Unknown metformin hydrochloride 500 MG Oral Tablet ORAL metformin hydrochloride 500 MG Oral TabletOriginal Medicationmetformin hydrochloride 500 MG Oral Tablet *Reorder from [facility] for eRx and Interaction Alerts* 10/28/2016 Unknown valsartan 40 MG Oral Tablet [Diovan] ORAL valsartan 40 MG Oral Tablet [Diovan]Original Medicationvalsartan 40 MG Oral Tablet [Diovan] *Reorder from [facility] for eRx and Interaction Alerts* 10/28/2016 Unknown Vital Signs Height 65 in 10/24/2024 Weight 179 lbs 10/24/2024 BMI 29.78 kg/m2 10/24/2024 Height-cm 165.1 cm 10/24/2024 Weight-kg 81.19 kg 10/24/2024 Encounters Encounter Location Date Provider Diagnosis [address] [id number] 10/24/2024 LIN FENG Tinea unguium B35.1 ; Pain in right toe(s) M79.674 ; Pain in left toe(s) M79.675 ; Atherosclerosis of [place] arteries of extremities with intermittent claudication, bilateral [...] toe(s) (ICD-10 - M79.675) 10/24/2024 Atherosclerosis of [place] arteries of extremities with intermittent claudication, bilateral [...] Treatment Treatment Notes Assessment Notes Atherosclerosis of [place] ar teries of extremities with intermittent claudication, [...] sooner if problems develop. Provider Name:LIN VARGAS, 12/26/2024 10:10:00 AM, [address] [place] [address], [place], [place], [id number], Progress Notes * MELISSA VALERIO EDOB:[birth year] (83 yo F)Acc No.[id number]:10/24/2024 Patient: MELISSA STEWART Provider: Anusha FENG :1940 A ge:83 Y S ex:Female Date:10/24/2024 Address:[address] [place], [place] [id number] Subjective: * Chief Complaints: * 1 . [...] 10 MG Oral Tablet *Reorder from [facility] for eRx and Interaction Alerts*, Unknown ezetimibe 10 MG / simvastatin 10 MG Oral Tablet [Vytorin] ORAL , Notes to Pharmacist: ezetimibe 10 MG / simvastatin 10 MG Oral Tablet [Vytorin]Original Medicationezetimibe 10 MG / simvastatin 10 MG Oral Tablet [Vytorin] *Reorder from [facility] for eRx and Interaction Alerts*, Unknown metformin hydrochloride 500 MG Oral Tablet ORAL , Notes to Pharmacist: metformin hydrochloride 500 MG Oral TabletOriginal Medicationmetformin hydrochloride 500 MG Oral Tablet *Reorder from [facility] for eRx and Interaction Alerts*, Unknown valsartan 40 MG Oral Tablet [Diovan] ORAL , Notes to Pharmacist: valsartan 40 MG Oral Tablet [Diovan]Original Medicationvalsartan 40 MG Oral Tablet [Diovan] *Reorder from [facility] for eRx and Interaction Alerts*, Medication [...] - M79.675 4 . 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
--- OUTSIDE RECORDS SUMMARY | 2024-11-07 08:55 | XMS_ITS | Encounter Summary ---
Author Organization [facility] Healthcare Address [address] [place] [address] Care Team Providers Care Retail Event Coordinator Name Role Phone Christian Cardozo MD Primary Care Provider Encounter Details Date Type Department Care Team (Late st Contact Info) Description 06/11/2024 Orders Only [facility] Health Information Management [address] [place] [address] Scanning, Provider Social History Tobacco Use Types Packs/Day Years Used Date Smoking Tobacco: Never Smokeless Tobacco: Never Alcohol Use Standard Drinks/Week Comments No 0 (1 standard drink = 0.6 oz pur e alcohol) Comments Unknown Sex and Gender Information Value Date Recorded Sex Assigned at Not on file 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 Gender Identity Not on file Sexual Orientation Not on file documented as of this encounter Plan of Treatment Not on file documented as of this encounter Procedures Procedure Name Priority Date/Time Associated Diagnosis Comments SCAN - LABS 06/11/2024 documented in this encounter Results * SCAN - LABS (06/11/2024) us Provider Scanning Edited Result - Final documented in this encounter Visit Diagnoses Not on filedocumented in this encounter Care Teams Retail Event Coordinator Relationship Specialty Start Date End Date Christian Cardozo MD [address] [facility] [address] [place] [address] PCP - General Family Medicine 06/14/18 documented as of this encounter
--- OUTSIDE RECORDS SUMMARY | 2024-11-07 08:55 | XMS_ITS ---
Author Organization [facility] Address [address] [place], [place] [id number] Care Team Providers Care Account Management Assistant Name Role Phone FRANCISCO FUCHS Unavailable [phone] Christian Cardozo Unavailable Unavailable LIN FENG Unavailable [phone] REASON FOR VISIT spot on ankle Medications Medication SIG (Take, Route, Frequency, Duration) Notes Start Date End Date Status valsartan 40 MG Oral Tablet [Diovan] ORAL valsartan 40 MG Oral Tablet [Diovan]Original Medicationvalsartan 40 MG Oral Tablet [Diovan] *Reorder from [facility] for eRx and Interaction Alerts* 10/28/2016 Unknown citalopram 10 MG Oral Tablet ORAL citalopram 10 MG Oral TabletOriginal Medicationcitalopram 10 MG Oral Tablet *Reorder from [facility] for eRx and Interaction Alerts* 10/28/2016 Unknown metformin hydrochloride 500 MG Oral Tablet ORAL metformin hydrochloride 500 MG Oral TabletOriginal Medicationmetformin hydrochloride 500 MG Oral Tablet *Reorder from [facility] for eRx and Interaction Alerts* 10/28/2016 Unknown ezetimibe 10 MG / simvastatin 10 MG Oral Tablet [Vytorin] ORAL ezetimibe 10 MG / simvastatin 10 MG Oral Tablet [Vytorin]Original Medicationezetimibe 10 MG / simvastatin 10 MG Oral Tablet [Vytorin] *Reorder from [facility] for eRx and Interaction Alerts* 10/28/2016 Unknown Vital Signs Height 65 in 08/29/2024 Weight 179 lbs 08/29/2024 BMI 29.78 kg/m2 08/29/2024 Height-cm 165.1 cm 08/29/2024 Weight-kg 81.19 kg 08/29/2024 Encounters Encounter Location Date Provider Diagnosis [address] [id number] 08/29/2024 LIN FENG Tinea unguium B35.1 ; Pain in right toe(s) M79.674 ; Pain in left toe(s) M79.675 ; Atherosclerosis of [place] arteries of extremities with intermittent claudication, bilateral [...] toe(s) (ICD-10 - M79.675) 08/29/2024 Atherosclerosis of [place] arteries of extremities with intermittent claudication, bilateral [...] Treatment Treatment Notes Assessment Notes Atherosclerosis of [place] ar teries of extremities with intermittent claudication, [...] develop. Provider Name:LIN VARGAS, 12/26/2024 10:10:00 AM, [address] [place] [address], [id number], Progress Notes * MELISSA VALERIO EDOB:[birth year] (83 yo F)Acc No.[id number]:08/29/2024 Patient: MARCELINO STEWARTANETTE Antonio Provider: Anusha FENG :1940 A ge:83 Y S ex:Female Date:08/29/2024 Address:[address] [place] [address] [place], [place] [id number] Subjective: * Chief Complaints: * 1 . [...] that the rash is painful. , [place]: [facility]. * ROS: G eneral / Constitutional: Patient [...] Medicationcitalopram 10 MG Oral Tablet *Reorder from [facility] for eRx and Interaction Alerts*, Unknown ezetimibe 10 MG / simvastatin 10 MG Oral Tablet [Vytorin] ORAL , Notes to Pharmacist: ezetimibe 10 MG / simvastatin 10 MG Oral Tablet [Vytorin]Original Medicationezetimibe 10 MG / simvastatin 10 MG Oral Tablet [Vytorin] *Reorder from [facility] for eRx and Interaction Alerts*, Unknown metformin hydrochloride 500 MG Oral Tablet ORAL , Notes to Pharmacist: metformin hydrochloride 500 MG Oral TabletOriginal Medicationmetformin hydrochloride 500 MG Oral Tablet *Reorder from [facility] for eRx and Interaction Alerts*, Unknown valsartan 40 MG Oral Tablet [Diovan] ORAL , Notes to Pharmacist: valsartan 40 MG Oral Tablet [Diovan]Original Medicationvalsartan 40 MG Oral Tablet [Diovan] *Reorder from [facility] for eRx and Interaction Alerts*, Medication [...] - M79.675 4 . 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 * Procedure Codes: 24414 APPLICATION OF PASTE BOOT. * Electronic signature of AILYN FENG DPM on 11/07/2024 at 08:55 AM CDT Sign off status: Pending * Provider: Anusha FENG Date: 0 08/29/2024 Generated for Jacquie lord/Robert/Rhiannon on: 0 11/07/2024 08:55 AM CDT History [...]
--- OUTSIDE RECORDS SUMMARY | 2024-11-07 08:55 | XMS_ITS | Encounter Summary ---
Author Organization [facility] Address [address] [place] [address] Phone Care Team Providers Care Diabetes Education Coordinator Name Role Phone Christian Cardozo MD Primary Care Provider Encounter Details Date Type Department Care Team (Latest Contact Info) Description 08/04/2023 Transcribe Orders [facility] [address] [place] [address] Dhiraj Witt MD [address] [facility] [address] [address] [place] [address] Encounter for other specified special examinations (Primary [...] Primary documented in this encounter Care Teams Diabetes Education Coordinator Relationship Specialty Start Date End Date Christian Cardozo MD [address] [place] [address] PCP - General Family Medicine 08/04/23 documented as of this encounter
--- OUTSIDE RECORDS SUMMARY | 2024-11-07 08:55 | XMS_ITS | Clinical Summary ---
Author Organization [facility] Address [address] [place] [address] Phone Care Team Providers Care Commercial Real Estate Attorney Name Role Phone Christian Cardozo MD Primary [...] to complete this topic Insurance [address] [place] [address] MEDICARE C BCBS PPO Care Teams Commercial Real Estate Attorney Relationship Specialty Start Date End Date Christian Cardozo MD [address] [place] [address] PCP - General Family Medicine 08/04/23
--- OUTSIDE RECORDS SUMMARY | 2024-11-07 08:55 | XMS_ITS | Encounter Summary ---
Author Organization [facility] Healthcare Address [address] [place] [address] Care Team Providers Care Social Security Benefits Interviewer Name Role Phone Christian Cardozo MD Primary Care Provider Encounter Details Date Type Department Care Team (Late st Contact Info) Description 08/20/2024 Orders Only [facility] Health Information Management [address] [place] [address] Scanning, Provider Social History Tobacco Use Types Packs/Day Years Used Date Smoking Tobacco: Never Smokeless Tobacco: Never Alcohol Use Standard Drinks/Week Comments No 0 (1 standard drink = 0.6 oz pur e alcohol) Comments Unknown Sex and Gender Information Value Date Recorded Sex Assigned at Not on file 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 Gender Identity Not on file Sexual Orientation Not on file documented as of this encounter Plan of Treatment Not on file documented as of this encounter Procedures Procedure Name Priority Date/Time Associated Diagnosis Comments SCAN - LABS 08/20/2024 documented in this encounter Results * SCAN - LABS (08/20/2024) us Provider Scanning Final Result documented in this encounter Visit Diagnoses Not on filedocumented in this encounter Care Teams Social Security Benefits Interviewer Relationship Specialty Start Date End Date Christian Cardozo MD [address] [place] [address] PCP - General Family Medicine 06/14/18 documented as of this encounter
--- OUTSIDE RECORDS SUMMARY | 2024-11-07 08:55 | XMS_ITS | Patient Health Record ---
Author Organization [facility] Address [address] [place], [place] [id number] Care Team Providers Care Mental Health Worker Name Role Phone FRANCISCO FUCHS Unavailable [phone] Christian Cardozo Unavailable Unavailable CARLYLE MARINO Unavailable [phone] LIN FENG Unavailable [phone] Allergies No Known Allergies Reason For Referral No Information Medications Medication SIG (Take, Route, Frequency, Duration) Notes Start Date End Date Status ezetimibe 10 MG / simvastatin 10 MG Oral Tablet [Vytorin] ORAL ezetimibe 10 MG / simvastatin 10 MG Oral Tablet [Vytorin]Original Medicationezetimibe 10 MG / simvastatin 10 MG Oral Tablet [Vytorin] *Reorder from [facility] for eRx and Interaction Alerts* 10/28/2016 Unknown citalopram 10 MG Oral Tablet ORAL citalopram 10 MG Oral TabletOriginal Medicationcitalopram 10 MG Oral Tablet *Reorder from [facility] for eRx and Interaction Alerts* 10/28/2016 Unknown metformin hydrochloride 500 MG Oral Tablet ORAL metformin hydrochloride 500 MG Oral TabletOriginal Medicationmetformin hydrochloride 500 MG Oral Tablet *Reorder from [facility] for eRx and Interaction Alerts* 10/28/2016 Unknown valsartan 40 MG Oral Tablet [Diovan] ORAL valsartan 40 MG Oral Tablet [Diovan]Original Medicationvalsartan 40 MG Oral Tablet [Diovan] *Reorder from [facility] for eRx and Interaction Alerts* 10/28/2016 Unknown Immunizations Vaccine Route Administration Date Status Comme nts Influenza, high dose seasonal Unknown 01/02/2023 Admini stered Vital Signs Height-cm 165.1 cm 10/24/2024 Weight-kg 81.19 kg 10/24/2024 Height 65 in 10/24/2024 Weight 179 lbs 10/24/2024 BMI 29.78 kg/m2 10/24/2024 Encounters Encounter Location Date Provider Diagnosis [address] [id number] 08/22/2024 LIN FENG Tinea unguium B35.1 ; Pain in right toe(s) M79.674 ; Pain in left toe(s) M79.675 ; Atherosclerosis of [place] arteries of extremities with intermittent claudication, bilateral legs I70.213 and Type 2 diabetes mellitus with other circulatory complications E11.[address] [id number] 08/29/2024 LIN FENG Tinea unguium B35.1 ; Pain in right toe(s) M79.674 ; Pain in left toe(s) M79.675 ; Atherosclerosis of [place] arteries of extremities with intermittent claudication, bilateral legs I70.213 ; Type 2 diabetes mellitus with other circulatory complications E11.59 and Other specified dermatitis L30.[address] [id number] 09/05/2024 LIN FENG Tinea unguium B35.1 ; Pain in right toe(s) M79.674 ; Pain in left toe(s) M79.675 ; Atherosclerosis of [place] arteries of extremities with intermittent claudication, bilateral legs I70.213 ; Type 2 diabetes mellitus with other circulatory complications E11.59 and Other specified dermatitis L30.[address] [id number] 10/24/2024 LIN FENG Tinea unguium B35.1 ; Pain in right toe(s) M79.674 ; Pain in left toe(s) M79.675 ; Atherosclerosis of [place] arteries of extremities with intermittent claudication, bilateral legs I70.213 ; Type 2 diabetes mellitus with other circulatory complications E11.59 and Other specified dermatitis L30.8 [facility] [address] [place], [place] [id number] 11/16/2023 CARLYLE MARINO Other hammer toe(s) (acquired), right foot M20.41 ; Tinea unguium B35.1 ; Other hammer toe(s) (acquired), left foot M20.42 ; Pain in right toe(s) M79.674 ; Pain in left toe(s) M79.675 ; Unspecified atherosclerosis of [place] arteries of extremities, bilateral legs I70.203 and Type 2 diabetes mellitus with diabetic peripheral angiopathy without gangrene E11.[address] [id number] 01/18/2024 CARLYLE MARINO Other hammer toe(s) (acquired), right foot M20.41 ; Tinea unguium B35.1 ; Other hammer toe(s) (acquired), left foot M20.42 ; Pain in right toe(s) M79.674 ; Pain in left toe(s) M79.675 ; Unspecified atherosclerosis of [place] arteries of extremities, bilateral legs I70.203 and Type 2 diabetes mellitus with diabetic peripheral angiopathy without gangrene E11.51 [facility] [address] [place], [place] [id number] 03/28/2024 FRANCISCO OOK Tinea unguium B35.1 ; Pain in right toe(s) M79.674 ; Pain in left toe(s) M79.675 ; Atherosclerosis of [place] arteries of extremities with intermittent claudication, bilateral legs I70.213 and Type 2 diabetes mellitus with other circulatory complications E11.[address] [id number] 05/30/2024 FRANCISCO SNOOK Tinea unguium B35.1 ; Pain in right toe(s) M79.674 ; Pain in left toe(s) M79.675 ; Atherosclerosis of [place] arteries of extremities with intermittent claudication, [...] in right toe(s) (ICD-10 - M79.674) 10/24/2024 Tinea unguium (ICD-10 - B35.1) 10/24/2024 Pain in right toe(s) (ICD-10 - M79.674) 10/24/2024 Pain in left toe(s) (ICD-10 - M79.675) 09/05/2024 Pain in left toe(s) (ICD-10 - [...] toe(s) (ICD-10 - M79.675) 08/29/2024 Atherosclerosis of [place] arteries of extremities with intermittent claudication, bilateral legs (ICD-10 - I70.213) Check and protect LE bilateral daily. Call if any changes or concerns. continue ROM stretches often through out the day. Call if symptoms are unresolving. return in 1 week 09/05/2024 Atherosclerosis of [place] arteries of extremities with intermittent claudication, bilateral legs (ICD-10 - I70.213) Check and protect LE bilateral daily. Call if any changes or concerns. continue ROM stretches often through out the day. Call if symptoms are unresolving. 10/24/2024 Atherosclerosis of [place] arteries of extremities with intermittent claudication, bilateral legs (ICD-10 - I70.213) Check and protect LE bilateral daily. Call if any changes or concerns. continue ROM stretches often through out the day. Call if symptoms are unresolving. 08/22/2024 Atherosclerosis of [place] arteries of extremities with intermittent claudication, bilateral legs (ICD-10 - I70.213) Check and protect LE bilateral daily. Call if any changes or concerns. 09/05/2024 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 The patient was instructed to check his feet daily to report any problems or signs of infection immediately. 10/24/2024 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 The patient was instructed to check his feet daily to report any problems or signs of infection immediately. 08/29/2024 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 The patient was instructed to check his feet daily to report any problems or signs of infection immediately. 03/28/2024 Atherosclerosis of [place] arteries of extremities with intermittent claudication, bilateral legs (ICD-10 - I70.213) 05/30/2024 Atherosclerosis of [place] arteries of extremities with intermittent claudication, bilateral legs (ICD-10 - I70.213) 01/18/2024 Pain in left toe(s) (ICD-10 - M79.675) 11/16/2023 Pain in left toe(s) (ICD-10 - M79.675) 11/16/2023 Unspecified atherosclerosis of [place] arteries of extremities, bilateral legs (ICD-10 - I70.203) Patient educated on risks and aggravating factors of PVD, including conservative treatment options such as a diet and exercise regimen to aid in slowing progression of vascular disease 01/18/2024 Unspecified atherosclerosis of [place] arteries of extremities, bilateral legs (ICD-10 - [...] blood thinnr which was increase this week. 10/24/2024 Other specified dermatitis (ICD-10 - L30.8) Superficial area of skin irritation RLE improving. No pain or symptoms 01/18/2024 Type 2 diabetes mellitus with diabetic [...] Treatment Next Appt Details Provider Name:LIN VARGAS, 12/26/2024 10:10:00 AM, [address] [place] [address], [phone], Insurance Providers Payer Name Payer Address Payer Phone Subscriber Number Group Number Insured Name Patient Relationship to Insured Coverage Start Date Coverage End Date [facility] [address] [place] [address] [id number] MELISSA VALERIO Self - patient is the insured
--- OUTSIDE RECORDS SUMMARY | 2024-11-07 08:55 | XMS_ITS | Encounter Summary ---
Author Organization [facility] Healthcare Address [address] [place] [address] Care Team Providers Care Option Trader Name Role Phone Christian Cardozo MD Primary Care Provider Encounter Details Date Type Department Care Team (Late st Contact Info) Description 12/11/2023 Orders Only [facility] Health Information Management [address] [place] [address] Scanning, Provider Social History Tobacco Use Types Packs/Day Years Used Date Smoking Tobacco: Never Smokeless Tobacco: Never Alcohol Use Standard Drinks/Week Comments No 0 (1 standard drink = 0.6 oz pur e alcohol) Comments Unknown Sex and Gender Information Value Date Recorded Sex Assigned at Not on file Legal Sex Female 1:11 PM BONBON DIPPER Gender Identity Not on file Sexual Orientation Not on file documented as of this encounter Plan of Treatment Not on file documented as of this encounter Procedures Procedure Name Priority Date/Time Associated Diagnosis Comments SCAN - LABS 12/11/2023 documented in this encounter Results * SCAN - LABS (12/11/2023) us Provider Scanning Final Result documented in this encounter Visit Diagnoses Not on filedocumented in this encounter Care Teams Option Trader Relationship Specialty Start Date End Date Christian Cardozo MD [address] [place] [address] PCP - General Family Medicine 06/14/18 documented as of this encounter
--- OUTSIDE RECORDS SUMMARY | 2024-11-07 08:55 | XMS_ITS | Encounter Summary ---
Author Organization [facility] Healthcare Address [address] [place] [address] Care Team Providers Care Motor Man Name Role Phone Christian Cardozo MD Primary Care Provider Encounter Details Date Type Department Care Team (Late st Contact Info) Description 08/21/2024 Orders Only [facility] [place] Management [address] [place] [address] Scanning, Provider Social History Tobacco Use Types Packs/Day Years Used Date Smoking Tobacco: Never Smokeless Tobacco: Never Alcohol Use Standard Drinks/Week Comments No 0 (1 standard drink = 0.6 oz pur e alcohol) Comments Unknown Sex and Gender Information Value Date Recorded Sex Assigned at Not on file Legal Sex Female 1:11 PM LOAN CLERK Gender Identity Not on file Sexual Orientation Not on file documented as of this encounter Plan of Treatment Not on file documented as of this encounter Procedures Procedure Name Priority Date/Time Associated Diagnosis Comments SCAN - LABS 08/21/2024 documented in this encounter Results * SCAN - LABS (08/21/2024) us Provider Scanning Final Result documented in this encounter Visit Diagnoses Not on filedocumented in this encounter Care Teams Motor Man Relationship Specialty Start Date End Date Christian Cardozo MD [address] [place] [address] PCP - General Family Medicine 06/14/18 documented as of this encounter
--- OUTSIDE RECORDS SUMMARY | 2024-11-07 08:56 | XMS_ITS | Encounter Summary ---
Author Organization [facility] Address [facility] [place] [address] Care Team Providers Care Project Development Engineer Name Role Phone Bianca Silverman Primary Care Provider [phone] Christian Cardozo MD Primary Care Provider [phone] Encounter Details Date Type Department Care Team (Late st Contact Info) Description 09/01/2018 Abstract [facility] CONVERSION [address] [place] [address] , Generic Conversion, Social History Tobacco Use Types Packs/Day Years Used Date Smoking Tobacco: Never Assessed Comments Unknown Sex and Gender Information Value Date Recorded Sex Assigned at Female 05/03/2024 2:10 PM AIRPLANE DISPATCH CLERK Legal Sex Female 5:08 PM CDT Gender Identity Not on file Sexual Orientation Not on file documented as of this encounter Plan of Treatment Not on file documented as of this encounter Visit Diagnoses Not on filedocumented in this encounter Care Teams Project Development Engineer Relationship Specialty Start Date End Date Bianca Silverman FNP [address] [place] [address] PCP - General NURSE PRACTITIONER 02/22/19 03/13/24 Christian Cardozo MD [address] [facility] [address] [place] [address] PCP - General FAMILY PRACTICE 03/14/24 documented as of this encounter
--- OUTSIDE RECORDS SUMMARY | 2024-11-07 08:56 | XMS_ITS | Encounter Summary ---
Author Organization [facility] Address [facility] [place] [address] Care Team Providers Care Cook Mayonnaise Name Role Phone Bianca Silverman Primary Care Provider [phone] Christian Cardozo MD Primary Care Provider [phone] Encounter Details Date Type Department Care Team (Late st Contact Info) Description 01/27/2014 Abstract [facility] CONVERSION [address] [place] [address] , Generic ConversionMD Social History Tobacco Use Types Packs/Day Years Used Date Smoking Tobacco: Never Assessed Comments Unknown Sex and Gender Information Value Date Recorded Sex Assigned at Female 05/03/2024 2:10 PM MIME ARTIST Legal Sex Female 5:08 PM CDT Gender Identity Not on file Sexual Orientation Not on file documented as of this encounter Plan of Treatment Not on file documented as of this encounter Visit Diagnoses Not on filedocumented in this encounter Care Teams Cook Mayonnaise Relationship Specialty Start Date End Date Bianca Silverman FNP [facility] [place] [address] PCP - General NURSE PRACTITIONER 02/22/19 03/13/24 Christian Cardozo MD [address] [facility] [address] [place] [address] PCP - General FAMILY PRACTICE 03/14/24 documented as of this encounter
--- OUTSIDE RECORDS SUMMARY | 2024-11-07 08:56 | XMS_ITS | Clinical Summary ---
Author Organization [facility] [address] Address [address] [place] [address] Care Team Providers Care Ski Binding Fitter And Repairer Name Role Phone Christian Cardozo MD Primary [...] total) by mouth daily 06/21/19 22 Active atorvastatin (LIPITOR) 80 mg tablet Take 1 tablet (80 mg total) by mouth daily 06/24/19 25 Active hydrALAZINE (APRESOLINE) 50 mg tablet Take 1 tablet (50 mg total) by mouth 3 (three) times a day 05/31/19 25 Active metoprolol tartrate (LOPRESSOR) 25 mg immediate release tablet Take 1/2 (one-half) tablet by mouth twice daily 90 tablet 10/08/19 25 Active warfarin (COUMADIN) 2 mg tabletIndications:C hronic anticoagulation TAKE 2 TABLETS BY MOUTH ONCE DAILY ON MONDAY AND MONDAY, THEN TAKE 3 TABLETS ON ALL OTHER DAYS OR DIRECTED 76 tablet 10/08/19 25 Active Active Problems Problem Noted Date Diagnosed Date Hyperglycemia 05/10/2018 Delirium 05/10/2018 Atrial fibrillation with RVR 05/10/2018 Coronary artery disease of n ative artery of [place] heart with stable angina pectoris 05/07/2018 Overview (05/08/2018): Added automatically from request for surgery [id number] S/P CABG (coronary artery bypass graft) Type 2 diabetes mellitus with other specified co mplication Encounters Date Type Department Care Team Description 10/04/2024 [place] Only [facility] [place] [address] [place] [address] Scanning, Provider 09/23/2024 Anticoagulation Visit [facility] Cardiology [address] [facility] [address] [place] [phone] Didi Wills RN 09/09/2024 Anticoagulation Visit [facility] Cardiology [address] [facility] [address] [place] [phone] Didi Wills RN 08/30/2024 Anticoagulation Visit [facility] [address] [facility] [address] [place] [phone] Beni Kebede RN 08/29/2024 Orders Only [facility] Health Information Management [address] [place] [address] Scanning, Provider 08/23/2024 Orders Only [facility] Health Information Management [address] [place] [address] Scanning, Provider 08/23/2024 Anticoagulation Visit [facility] Medical [facility] Cardiology [address] [place] [address] [address] [place] [address] Beni Kebede, BEST 08/21/2024 Orders Only [facility] [place] Information Management [address] [place] [address] Scanning, Provider 08/21/2024 Anticoagulation Visit [facility] [address] [place] [address] [address] [place] [phone] Beni Kebede RN 08/21/2024 Telephone [facility] [address] [place] [address] [address] [place] [phone] Twin Brar MD 08/20/2024 Orders Only [facility] [place] Information Management [address] [place] [address] Scanning, Provider 08/20/2024 Telephone [facility] [address] [place] [address] [address] [place] [phone] Twin Brar MD 08/20/2024 Telephone [facility] [address] [place] [address] [address] [place] [phone] Macey Espinosa NP 08/12/2024 Telephone [facility] [address] [place] [address] [address] [place] [address] [phone] Twin Brar MD 08/09/2024 Anticoagulation Visit [facility] [address] [place] [address] [address] [place] [phone] Beni Kebede, BEST 08/09/2024 Telephone [facility] Cardiology [address] [place] [address] [address] [place] [phone] Twin Brar MD from Last 3 Months [...] on file Legal Sex Female 1:11 PM SERVICE LINE LAYER Gender Identity Not on file Sexual Orientation [...] 04/27, 05/14/2018, Additional history exists Influenza Vaccine (#1) 2024 , 12/14/2017, 12/28/2016, Additional history exists Lipid Panel 06/11/2025 06/11/2024, 12/25, 05/13/2019, Additional history exists Pneumococcal vaccine 65+ Completed 12/14/2017, 11/27 Procedures Procedure Name Priority Date/Time Associated Diagnosis Comments SCAN - LABS 10/04/2024 PROTIME-INR Routine 09/23/2024 PROTIME-INR Routine 09/05/2024 SCAN - LABS 08/29/2024 PROTIME-INR Routine 08/29/2024 SCAN - LABS 08/23/2024 PROTIME-INR Routine 08/23/2024 SCAN - LABS 08/21/2024 SCAN - LABS 08/20/2024 PROTIME-INR Routine 08/20/2024 PROTIME-INR Routine 08/09/2024 LIPID PANEL Routine 01/08/2024 8:58 AM CDT EGFR STAT 05/16/2018 9:14 AM SERVICE LINE LAYER HEMOGLOBIN A1C Routine 05/07/2018 7:28 PM SERVICE LINE LAYER from Last 3 Months or Most Recently Relevant to Health Maintenance Results * SCAN - LABS (10/04/2024) us Provider Scanning Final Result * (ABNORMAL) Protime-INR (09/23/2024) INR 1.20(A) 0.90 - 1.10 EXTERNAL LAB Blood us Historical Provider MD LAB BLOOD ORDERABLES Edit ed Result - Final EXTERNAL LAB * Protime-INR (09/05/2024) INR 1.10 0.90 - 1.10 EXTERNAL LAB Blood Historical Provider MD LAB BLOOD ORDERABLES Shelley l Result Performing Organization Address City/[facility] de Phone Number EXTERNAL LAB * SCAN - LABS (08/29/2024) us Provider Scanning Final Result * (ABNORMAL) Protime-INR (08/29/2024) INR 1.20(A) 0.90 - 1.10 EXTERNAL LAB Blood 08/29/2024 Result [facility] Provider MD LAB BLOOD ORDERABLES Shelley l Result Performing Organization Address [facility] Phone Number EXTERNAL LAB * SCAN - LABS (08/23/2024) us Provider Scanning Final Result * (ABNORMAL) Protime-INR (08/23/2024) INR 4.20(A) 0.90 - 1.10 EXTERNAL LAB Blood 08/23/2024 Result [facility] Provider MD LAB BLOOD ORDERABLES Shelley l Result Performing Organization Address [facility] de Phone Number EXTERNAL LAB * SCAN - LABS (08/21/2024) us Provider Scanning Final Result * SCAN - LABS (08/20/2024) us Provider Scanning Final Result * (ABNORMAL) Protime-INR (08/20/2024) INR 20.00(A) 0.90 - 1.10 EXTERNAL LAB Comment:greater than 20 Blood 08/20/2024 Historical Provider MD LAB BLOOD ORDERABLES Shelley l Result Performing Organization Address City/[facility] Co de Phone Number EXTERNAL LAB * (ABNORMAL) Protime-INR (08/09/2024) INR 3.30(A) 0.90 - 1.10 EXTERNAL LAB Blood 08/09/2024 [facility] Provider MD LAB BLOOD ORDERABLES Shelley l Result Performing Organization Address [facility] de Phone Number EXTERNAL LAB * Lipid panel (01/08/2024 8:58 AM CDT) SCRIBED Cholesterol, Total 150 <200 EXTERNAL LAB SCRIBED HDL 39 >40 EXTERNAL LAB SCRIBED LDL 63 <100 EXTERNAL LAB SCRIBED Triglycerides 242 <150 EXTERNAL LAB Blood [facility] Provider MD LAB BLOOD ORDERABLES Edit ed Result - Final Performing Organization Address [facility] de Phone Number EXTERNAL LAB * eGFR (05/16/2018 9:14 AM SERVICE LINE LAYER) eGFR 49 mL/min/1.7 3 m2 JACOB SILVER Comment: Interpretive Data Reference Interval Normal >/= 90 mL/min/1.73m2 Mildly decreased* 60 - 89 mL/min/1.73m2 Mildly to moderately decreased 45 - 59 mL/min/1.73m2 Moderately to severely decreased 30 - 44 mL/min/1.73m2 Severely decreased 15 - 29 mL/min/1.73m2 Kidney Failure < 15 mL/min/1.73m2 *Relative to young adult level If -Wallisian multiply value by 1.16. Estimated glomerular filtration [...] 2015. Blood specimen (specimen) 05/16/2018 9:14 AM SERVICE LINE LAYER 05/16/2018 9:16 AM SERVICE LINE LAYER Narrative JACOB - 05/16/2018 9:47 AM SERVICE LINE LAYER Pari Candelario NP LAB BLOOD ORDERABLES Shelley l Result Performing Organization Address [facility] Co de Phone Number [facility] [address] [place] [address] * (ABNORMAL) Hemoglobin A1c (05/07/2018 7:28 PM SERVICE LINE LAYER) Hgb A1C 9.0(H) 4.0 - 5.6 % [facility] Estimated Average Glucose 212 mg/dL [facility] Comment: The ADA recommends reporting an estimated Average Glucose (eAG) with all Hemoglobin A1c results using the equation derived from a study of 507 normal and diabetic adults. Minority populations were underrepresented and children were not included. (Diabetes Care 31:8512-8667, 2008). The eAG is not equivalent to a fasting glucose. Blood specimen (specimen) 05/07/2018 7:28 PM SERVICE LINE LAYER 05/07/2018 8:02 PM SERVICE LINE LAYER Narrative JACOB - 05/07/2018 8:18 PM SERVICE LINE LAYER Luke Magana MD LAB BLOOD ORDERABLES Final R esult Performing Organization Address [facility] de Phone Number [facility] [address] [employer] [place] [place] [address] from Last 3 Months or Most Recently Relevant to Health Maintenance Insurance [facility]ICARE [facility]ICARE [facility] [employer] CHOICE MEDICARE PPO Advance Directives For more information, please contact: [phone] * Full Code (Latest Code Status on File) Date Activated Date Inactivated Comments 05/18/2018 7:34 PM * Full Code Date Activated Date Inactivated Comments 05/08/2018 3:11 PM 05/16/2018 5:35 PM Care Teams Ski Binding Fitter And Repairer Relationship Specialty Start Date End Date Christian Cardozo MD [address] [facility] [address] [place] [address] PCP - General Family Medicine 06/14/18
--- OUTSIDE RECORDS SUMMARY | 2024-11-07 08:56 | XMS_ITS ---
Author Organization [facility] Address [address] [place], [place] [address] Care Team Providers Care Cmm Technician Name Role Phone FRANCISCO FUCHS Unavailable [phone] Christian Cardozo Unavailable Unavailable LIN FENG Unavailable [phone] REASON FOR VISIT check edema Medications Medication SIG (Take, Route, Frequency, Duration) Notes Start Date End Date Status valsartan 40 MG Oral Tablet [Diovan] ORAL valsartan 40 MG Oral Tablet [Diovan]Original Medicationvalsartan 40 MG Oral Tablet [Diovan] *Reorder from [facility] for eRx and Interaction Alerts* 10/28/2016 Unknown ezetimibe 10 MG / simvastatin 10 MG Oral Tablet [Vytorin] ORAL ezetimibe 10 MG / simvastatin 10 MG Oral Tablet [Vytorin]Original Medicationezetimibe 10 MG / simvastatin 10 MG Oral Tablet [Vytorin] *Reorder from [facility] for eRx and Interaction Alerts* 10/28/2016 Unknown metformin hydrochloride 500 MG Oral Tablet ORAL metformin hydrochloride 500 MG Oral TabletOriginal Medicationmetformin hydrochloride 500 MG Oral Tablet *Reorder from [facility] for eRx and Interaction Alerts* 10/28/2016 Unknown citalopram 10 MG Oral Tablet ORAL citalopram 10 MG Oral TabletOriginal Medicationcitalopram 10 MG Oral Tablet *Reorder from [facility] for eRx and Interaction Alerts* 10/28/2016 Unknown Vital Signs Height 65 in 09/05/2024 Weight 179 lbs 09/05/2024 BMI 29.78 kg/m2 09/05/2024 Height-cm 165.1 cm 09/05/2024 Weight-kg 81.19 kg 09/05/2024 Encounters Encounter Location Date Provider Diagnosis [address] [id number] 09/05/2024 LIN FENG Tinea unguium B35.1 ; Pain in right toe(s) M79.674 ; Pain in left toe(s) M79.675 ; 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 Provider Name:LIN VARGAS, 12/26/2024 10:10:00 AM, [address] [place] [address], [id number], Progress Notes * MELISSA VALERIO EDOB:[birth year] (83 yo F)Acc No.[id number]:09/05/2024 Patient: MELISSA STEWART Provider: Anusha FENG :1940 A ge:83 Y S ex:Female Date:09/05/2024 Address:[address] [place], [place] [id number] Subjective: * Chief Complaints: * 1 . Check edema. * HPI: H PI: Follow Up Visit P atient presents for follow-up visit for a rash on the calf. Patient states that it is better but not completely gone yet. , MA: [facility]. * ROS: G eneral / Constitutional: [...] Medicationcitalopram 10 MG Oral Tablet *Reorder from [facility] for eRx and Interaction Alerts*, Unknown ezetimibe 10 MG / simvastatin 10 MG Oral Tablet [Vytorin] ORAL , Notes to Pharmacist: ezetimibe 10 MG / simvastatin 10 MG Oral Tablet [Vytorin]Original Medicationezetimibe 10 MG / simvastatin 10 MG Oral Tablet [Vytorin] *Reorder from [facility] for eRx and Interaction Alerts*, Unknown metformin hydrochloride 500 MG Oral Tablet ORAL , Notes to Pharmacist: metformin hydrochloride 500 MG Oral TabletOriginal Medicationmetformin hydrochloride 500 MG Oral Tablet *Reorder from [facility] for eRx and Interaction Alerts*, Unknown valsartan 40 MG Oral Tablet [Diovan] ORAL , Notes to Pharmacist: valsartan 40 MG Oral Tablet [Diovan]Original Medicationvalsartan 40 MG Oral Tablet [Diovan] *Reorder from [facility] for eRx and Interaction Alerts*, Medication [...] - M79.675 4 . 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 * Procedure Codes: * Electronic signature of AILYN FENG DPM on 11/07/2024 at 08:56 AM CDT Sign off status: Pending * Provider: Anusha FENG Date: 0 09/05/2024 Generated for Jacquie Oshea on: 0 11/07/2024 08:56 AM CDT History and Physical Notes * [...]
--- OUTSIDE RECORDS SUMMARY | 2024-11-07 08:56 | XMS_ITS | Encounter Summary ---
Author Organization [facility] Address [facility] [place] [address] Care Team Providers Care Etl Consultant Name Role Phone Bianca Silverman Primary Care Provider [phone] Christian Cardozo MD Primary Care Provider [phone] Encounter Details Date Type Department Care Team (Latest Contact Info) Description 01/30/2018 Abstract [facility] , Tanner Souza MD Social History Tobacco Use Types Packs/Day Years Used Date Smoking Tobacco: Never Assessed Comments Unknown Sex and Gender Information Value Date Recorded Sex Assigned at Female 05/03/2024 2:10 PM DIRECTOR ORANGE Legal Sex Female 5:08 PM CDT Gender Identity Not on file Sexual Orientation Not on file documented as of this encounter Plan of Treatment Not on file documented as of this encounter Visit Diagnoses Not on filedocumented in this encounter Care Teams Etl Consultant Relationship Specialty Start Date End Date Bianca Silverman FNP [facility] [place] [address] PCP - General NURSE PRACTITIONER 02/22/19 03/13/24 Christian Cardozo MD [address] [facility] [address] [place] [address] PCP - General FAMILY PRACTICE 03/14/24 documented as of this encounter
--- OUTSIDE RECORDS SUMMARY | 2024-11-07 08:56 | XMS_ITS | Encounter Summary ---
Author Organization [facility] Healthcare Address [address] [place] [address] Care Team Providers Care Shipboard Intelligence Analyst Name Role Phone Christian Cardozo MD Primary Care Provider Encounter Details Date Type Department Care Team (Late st Contact Info) Description 11/16/2023 Orders Only [facility] Health Information Management [address] [place] [address] Scanning, Provider Social History Tobacco Use Types Packs/Day Years Used Date Smoking Tobacco: Never Smokeless Tobacco: Never Alcohol Use Standard Drinks/Week Comments No 0 (1 standard drink = 0.6 oz pur e alcohol) Comments Unknown Sex and Gender Information Value Date Recorded Sex Assigned at Not on file Legal Sex Female 1:11 PM WEDGER Gender Identity Not on file Sexual Orientation Not on file documented as of this encounter Plan of Treatment Not on file documented as of this encounter Procedures Procedure Name Priority Date/Time Associated Diagnosis Comments SCAN - LABS 11/16/2023 documented in this encounter Results * SCAN - LABS (11/16/2023) us Provider Scanning Final Result documented in this encounter Visit Diagnoses Not on filedocumented in this encounter Care Teams Shipboard Intelligence Analyst Relationship Specialty Start Date End Date Christian Cardozo MD [address] [place] [address] PCP - General Family Medicine 06/14/18 documented as of this encounter
--- OUTSIDE RECORDS SUMMARY | 2024-11-07 08:56 | XMS_ITS | Clinical Summary ---
Author Organization [facility] Address [address] [address] Phone Care Team Providers Care Operations Welder Name Role Phone Unavailable Primary Care Provider [...] Comments Blood Pressure 152/80 04/23/2018 12:01 AM SAFETY COUNSELOR Pulse - - Temperature 36.7 C (98.1 F) 04/23/2018 12:01 AM SAFETY COUNSELOR Respiratory Rate - - Oxygen Saturation - - Inhaled Oxygen Concentration - - Weight 79.4 kg (175 lb) 04/23/2018 12:01 AM SAFETY COUNSELOR Height 162.6 cm (5' 4) 04/23/2018 12:01 AM SAFETY COUNSELOR Body Mass Index 30.04 04/23/2018 12:01 AM SAFETY COUNSELOR Plan of Treatment Not on file
--- OUTSIDE RECORDS SUMMARY | 2024-11-07 08:56 | XMS_ITS | Clinical Summary ---
Author Organization [facility] Address [address] [place] [address] Care Team Providers Care Acting Manager Name Role Phone Christian Cardozo MD Primary Care Provider [phone] Allergies No known active allergies Medications amLODIPine [...] Sex Assigned at Female 05/03/2024 2:10 PM SHIFT FOREMAN Legal Sex Female 5:08 PM CDT Gender [...] diabetes mellitus with ESRD (end-stage renal disease) ([facility]) Inadequately controlled diabetes mellitus ([facility]) Encounter for long-term (current) use of insulin ([facility]) Other specified abnormal findings of blood chemistry Chronic kidney disease, unspecified HEMOGLOBIN, GLYCOSYLATED Routine 05/09/2012 11:40 AM SHIFT FOREMAN from Last 3 Months or Most Recently Relevant to Health Maintenance Results * (ABNORMAL) LIPID PANEL (06/11/2024 10:39 AM CDT) CHOLESTEROL 162 <200.0 MG/DL 06/11/2024 11:04 AM [facility] TRIGLYCERIDES 173(H) <150 MG/DL 06/11/2024 11:04 AM T [facility] HDL 44 >40.0 MG/DL 06/11/2024 11:04 AM [facility] LDL (CALCULATED) 83 <100 MG/DL 06/11/2024 11:04 AM [facility] NON HDL CHOLESTEROL 118 <130 MG/DL 06/11/2024 11:04 AM [facility] CHOL/HDL RATIO 3.7 0.0 - 4.5 06/11/2024 11:04 AM [facility] VLDL CALCULATION 35 5 - 55 MG/DL 06/11/2024 11:04 AM [facility] LIPID INTERPRETATION 06/11/2024 11:04 AM [facility] Comment: NIH CONCENSUS REPORT RECOMMENDATIONS: [...] MD LABORATORY Final Result Performing Organization Address City/State/[facility] Co de Phone Number [facility] [address] [place] [address], * (ABNORMAL) HEMOGLOBIN, GLYCOSYLATED (05/09/2012 11:40 AM SHIFT FOREMAN) HGB A1C 6.9 INCREASED RISK OF DIABETES <5.7% NON-DIABETES 5.7-6.4% INCREASED RISK FOR FUTURE DIABETES > OR = 6.5 CONSISTENT WITH DIABETES STANDARDS OF MEDICAL CARE IN DIABETES-2010 DIABETES CARE, 33(SUPP 1): S1-S61,2010 (H) <5.7 % [facility] TO EPIC CONVERSION 05/09/2012 11:4 0 AM SHIFT FOREMAN 05/09/2012 11:40 AM SHIFT FOREMAN Narrative [facility] TO EPIC CONVERSION - 05/09/2012 12:21 PM SHIFT FOREMAN Result Communication: No patient communication needed at this time Ahsan Cash MD LABORATORY Final Result Performing Organization Address City/[facility] Co de Phone Number [facility] TO EPIC CONVERSION from Last 3 Months or Most Recently Relevant to Health Maintenance Insurance [employer] Care Teams Acting Manager Relationship Specialty Start Date End Date Christian Cardozo MD [address] [place] [address] PCP - General FAMILY PRACTICE 03/14/24
--- OUTSIDE RECORDS SUMMARY | 2024-11-07 08:56 | XMS_ITS | Encounter Summary ---
Author Organization [facility] Healthcare Address [address] [place] [address] Care Team Providers Care Hide Dropper Name Role Phone Christian Cardozo MD Primary Care Provider Encounter Details Date Type Department Care Team (Late st Contact Info) Description 01/08/2024 Orders Only [facility] [place] Information [place] [address] [place] [address] Scanning, Provider Social History Tobacco Use Types Packs/Day Years Used Date Smoking Tobacco: Never Smokeless Tobacco: Never Alcohol Use Standard Drinks/Week Comments No 0 (1 standard drink = 0.6 oz pur e alcohol) Comments Unknown Sex and Gender Information Value Date Recorded Sex Assigned at Not on file Legal Sex Female 1:11 PM PEAR PICKER Gender Identity Not on file Sexual Orientation Not on file documented as of this encounter Plan of Treatment Not on file documented as of this encounter Procedures Procedure Name Priority Date/Time Associated Diagnosis Comments SCAN - LABS 01/08/2024 documented in this encounter Results * SCAN - LABS (01/08/2024) us Provider Scanning Edited Result - Final documented in this encounter Visit Diagnoses Not on filedocumented in this encounter Care Teams Hide Dropper Relationship Specialty Start Date End Date Christian Cardozo MD [address] [facility] [address] [place] [address] PCP - General Family Medicine 06/14/18 documented as of this encounter
[2024-11-07 09:24] LABS: INR 1.2; Prothrombin Time 12.6 Seconds (9.50-12.1)
[2024-11-07 09:44] LABS: Hemoglobin A1C 8.3 % (<5.7)
[2024-11-07 09:54] LABS: Anion Gap 5 mmol/L (4-12); Blood Urea Nitrogen 21 mg/dL (7-17); Calcium 9.8 mg/dL (8.4-10.2); Carbon Dioxide 26 mmol/L (22-30); Chloride 108 mmol/L (98-107); Estimated Glomerular Filt Rate 44; Glucose 160 mg/dL (65-110); Osmolality Calculated 294 mOsm/kg (285-295); Potassium 5.4 mmol/L (3.4-5.0); Sodium 139 mmol/L (137-145)
== END 2024-11-07 08:47 | disposition home or self-care (01) ==
LOC: CHSLAB 08:49
PROVIDERS: PCP Family Medicine; Visit Provider Family Medicine
DX: N18.32 Chronic kidney disease, stage 3b (principal); E11.9 Type 2 diabetes mellitus without complications; I48.91 Unspecified atrial fibrillation
CPT/HCPCS: 36415; 80048; 83036; 85610

== ENCOUNTER 2025-01-06 10:53 | Outpatient (CLI) | payer MEDICARE, SELFPAY ==
--- OUTSIDE RECORDS SUMMARY | 2024-08-22 09:30 | XMS_ITS ---
Author Organization [facility] Address [address] [place], [place] [id number] Care Team Providers Care Construction Producer Name Role Phone FRANCISCO FUCHS Unavailable [phone] Christian Cardozo Unavailable Unavailable LIN FENG Unavailable [phone] Allergies No Known Allergies REASON FOR VISIT *General care Medications Medication SIG (Take, Route, Frequency, Duration) Notes Start Date End Date Status citalopram 10 MG Oral Tablet ORAL citalopram 10 MG Oral TabletOriginal Medicationcitalopram 10 MG Oral Tablet *Reorder from [employer] for eRx and Interaction Alerts* 10/28/2016 Unknown metformin hydrochloride 500 MG Oral Tablet ORAL metformin hydrochloride 500 MG Oral TabletOriginal Medicationmetformin hydrochloride 500 MG Oral Tablet *Reorder from [employer] for eRx and Interaction Alerts* 10/28/2016 Unknown ezetimibe 10 MG / simvastatin 10 MG Oral Tablet [Vytorin] ORAL ezetimibe 10 MG / simvastatin 10 MG Oral Tablet [Vytorin]Original Medicationezetimibe 10 MG / simvastatin 10 MG Oral Tablet [Vytorin] *Reorder from [employer] for eRx and Interaction Alerts* 10/28/2016 Unknown valsartan 40 MG Oral Tablet [Diovan] ORAL valsartan 40 MG Oral Tablet [Diovan]Original Medicationvalsartan 40 MG Oral Tablet [Diovan] *Reorder from [employer] for eRx and Interaction Alerts* 10/28/2016 Unknown Vital Signs Height 65 in 08/22/2024 Weight 179 lbs 08/22/2024 BMI 29.78 kg/m2 08/22/2024 Height-cm 165.1 cm 08/22/2024 Weight-kg 81.19 kg 08/22/2024 Encounters Encounter Location Date Provider Diagnosis [address] [id number] 08/22/2024 LIN FENG Tinea unguium B35.1 ; Pain in right toe(s) M79.674 ; Pain in left toe(s) M79.675 ; Atherosclerosis of [place] arteries of extremities with intermittent claudication, bilateral [...] toe(s) (ICD-10 - M79.675) 08/22/2024 Atherosclerosis of [place] arteries of extremities with intermittent claudication, bilateral [...] debris and necrotic tissue removed Atherosclerosis of [place] ar teries of extremities with intermittent claudication, [...] sooner if problems develop. Provider Name:LIN VARGAS, 02/27/2025 01:20:00 PM, [address] [place] [address], [id number], Progress Notes * MELISSA VALERIO EDOB:[birth year] (84 yo F)Acc No.[id number]:08/22/2024 Patient: MELISSA STEAWRT Provider: Anusha FENG :1940 A ge:83 Y S ex:Female Date:08/22/2024 Address:[address] [place], [place] [id number] Subjective: * Chief Complaints: * 1 . [...] Patient denies c hest pain, history of IA, irregular heartbeat. M usculoskeletal: Patient complains of h ammertoes. P eripheral Vascular: Patient denies b lanching of skin, cold extremities, decreased sensation in extremities. S kin: Patient complains of f ungal nails, nail changes. ? N eurologic: Patient denies d izziness, gait abnormality, headache. * Medical History: M edical History Verified. * Family History: F ather: PRN [...] Medicationcitalopram 10 MG Oral Tablet *Reorder from [facility] for eRx and Interaction Alerts*, Unknown ezetimibe 10 MG / simvastatin 10 MG Oral Tablet [Vytorin] ORAL , Notes to Pharmacist: ezetimibe 10 MG / simvastatin 10 MG Oral Tablet [Vytorin]Original Medicationezetimibe 10 MG / simvastatin 10 MG Oral Tablet [Vytorin] *Reorder from [facility] for eRx and Interaction Alerts*, Unknown metformin hydrochloride 500 MG Oral Tablet ORAL , Notes to Pharmacist: metformin hydrochloride 500 MG Oral TabletOriginal Medicationmetformin hydrochloride 500 MG Oral Tablet *Reorder from [facility] for eRx and Interaction Alerts*, Unknown valsartan 40 MG Oral Tablet [Diovan] ORAL , Notes to Pharmacist: valsartan 40 MG Oral Tablet [Diovan]Original Medicationvalsartan 40 MG Oral Tablet [Diovan] *Reorder from [facility] for eRx and Interaction Alerts*, Medication List reviewed and reconciled with the patient * Allergies: N .K.D.A. Objective: * Vitals: W t: 179 lbs, [...] - M79.675 4 . A therosclerosis of [place] arteries of extremities with intermittent claudication, bilateral legs - I70.213 5 . 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 A therosclerosis of [place] arteries of extremities with intermittent claudication, bilateral legs Notes: Check and protect LE bilateral daily. Call if any changes or concerns. 3. T ype 2 diabetes mellitus with other circulatory complications Notes: Diabetic Foot Care: The patient was educated on diabetes and the lower extremity. The patient was instructed to check his feet daily to report any problems or signs of infection immediately. * Immunizations: Immunization record has been reviewed and updated. * Follow Up: 1 0 - 12 weeks (Reason: At-Risk Foot care, sooner if problems develop.) * Billing Information: * Visit Code: 36236 Office Visit, Est Pt., Level 3. * Procedure Codes: * Electronic signature of AILYN FENG DPM on 01/06/2025 at 12:06 PM CDT Sign off status: Pending * Provider: Anusha FENG Date: 0 08/22/2024 Generated for Jacquie lord/Robetr/Rhiannon on: 1 12:06 PM CDT History and Physical Notes * [...]
--- OUTSIDE RECORDS SUMMARY | 2024-08-29 07:30 | XMS_ITS ---
Author Organization [facility] Address [address] [place], [place] [id number] Care Team Providers Care Hamper Maker Name Role Phone FRANCISCO FUCHS Unavailable [phone] Christian Cardozo Unavailable Unavailable LIN FENG Unavailable [phone] REASON FOR VISIT spot on ankle Medications Medication SIG (Take, Route, Frequency, Duration) Notes Start Date End Date Status valsartan 40 MG Oral Tablet [Diovan] ORAL valsartan 40 MG Oral Tablet [Diovan]Original Medicationvalsartan 40 MG Oral Tablet [Diovan] *Reorder from [employer] for eRx and Interaction Alerts* 10/28/2016 Unknown citalopram 10 MG Oral Tablet ORAL citalopram 10 MG Oral TabletOriginal Medicationcitalopram 10 MG Oral Tablet *Reorder from [employer] for eRx and Interaction Alerts* 10/28/2016 Unknown metformin hydrochloride 500 MG Oral Tablet ORAL metformin hydrochloride 500 MG Oral TabletOriginal Medicationmetformin hydrochloride 500 MG Oral Tablet *Reorder from [employer] for eRx and Interaction Alerts* 10/28/2016 Unknown ezetimibe 10 MG / simvastatin 10 MG Oral Tablet [Vytorin] ORAL ezetimibe 10 MG / simvastatin 10 MG Oral Tablet [Vytorin]Original Medicationezetimibe 10 MG / simvastatin 10 MG Oral Tablet [Vytorin] *Reorder from [employer] for eRx and Interaction Alerts* 10/28/2016 Unknown Vital Signs Height 65 in 08/29/2024 Weight 179 lbs 08/29/2024 BMI 29.78 kg/m2 08/29/2024 Height-cm 165.1 cm 08/29/2024 Weight-kg 81.19 kg 08/29/2024 Encounters Encounter Location Date Provider Diagnosis [address] [id number] 08/29/2024 LIN FENG Tinea unguium B35.1 ; Pain in right toe(s) M79.674 ; Pain in left toe(s) M79.675 ; Atherosclerosis of [place]' arteries of extremities with intermittent claudication, bilateral [...] toe(s) (ICD-10 - M79.675) 08/29/2024 Atherosclerosis of [place]lowa dee-[place]' arteries of extremities with intermittent claudication, bilateral [...] Treatment Treatment Notes Assessment Notes Atherosclerosis of [place]' ar teries of extremities with intermittent claudication, [...] develop. Provider Name:LIN VARGAS, 02/27/2025 01:20:00 PM, [address] [place] [address], [phone], Progress Notes * MELISSA VALERIO EDOB:[birth year] (84 yo F)Acc No.[id number]:08/29/2024 Patient: MARCELINO STEWARTANETTE Antonio Provider: Anusha FENG :1940 A ge:83 Y S ex:Female Date:08/29/2024 Address:[address] [place] [address] [place], [place] [id number] Subjective: * Chief Complaints: * 1 . Spot on ankle. * HPI: H PI: New Complaint E [...] that the rash is painful. , [facility] * ROS: G eneral / Constitutional: [...] 10 MG Oral Tablet *Reorder from [facility] for eRx and Interaction Alerts*, Unknown ezetimibe 10 MG / simvastatin 10 MG Oral Tablet [Vytorin] ORAL , Notes to Pharmacist: ezetimibe 10 MG / simvastatin 10 MG Oral Tablet [Vytorin]Original Medicationezetimibe 10 MG / simvastatin 10 MG Oral Tablet [Vytorin] *Reorder from [facility] for eRx and Interaction Alerts*, Unknown metformin hydrochloride 500 MG Oral Tablet ORAL , Notes to Pharmacist: metformin hydrochloride 500 MG Oral TabletOriginal Medicationmetformin hydrochloride 500 MG Oral Tablet *Reorder from [facility] for eRx and Interaction Alerts*, Unknown valsartan 40 MG Oral Tablet [Diovan] ORAL , Notes to Pharmacist: valsartan 40 MG Oral Tablet [Diovan]Original Medicationvalsartan 40 MG Oral Tablet [Diovan] *Reorder from [facility] for eRx and Interaction Alerts*, Medication [...] - M79.675 4 . A therosclerosis of [place]' arteries of extremities with intermittent claudication, bilateral [...] any problems or signs of infection immediately. 3. O ther specified dermatitis Notes: superficial [...] develop.) * Billing Information: * Visit Code: 08934 Office Visit, Est Pt., Level 3. * Procedure Codes: 58111 APPLICATION OF PASTE BOOT. * Electronic signature of AILYN FENG DPM on 01/06/2025 at 12:05 PM CDT Sign off status: Pending * Provider: Anusha FENG Date: 0 08/29/2024 Generated for Jacquie lord/Robert/Rhiannon on: 12:05 PM CDT History and Physical Notes * [...]
--- OUTSIDE RECORDS SUMMARY | 2024-09-05 07:30 | XMS_ITS ---
Author Organization [facility] Address [address] [place], [place] [address] Care Team Providers Care Tapping Machine Operator Automatic Name Role Phone FRANCISCO FUCHS Unavailable [phone] Christian Cardozo Unavailable Unavailable LIN FENG Unavailable [phone] REASON FOR VISIT check edema Medications Medication SIG (Take, Route, Frequency, Duration) Notes Start Date End Date Status valsartan 40 MG Oral Tablet [Diovan] ORAL valsartan 40 MG Oral Tablet [Diovan]Original Medicationvalsartan 40 MG Oral Tablet [Diovan] *Reorder from [employer] for eRx and Interaction Alerts* 10/28/2016 Unknown ezetimibe 10 MG / simvastatin 10 MG Oral Tablet [Vytorin] ORAL ezetimibe 10 MG / simvastatin 10 MG Oral Tablet [Vytorin]Original Medicationezetimibe 10 MG / simvastatin 10 MG Oral Tablet [Vytorin] *Reorder from [employer] for eRx and Interaction Alerts* 10/28/2016 Unknown metformin hydrochloride 500 MG Oral Tablet ORAL metformin hydrochloride 500 MG Oral TabletOriginal Medicationmetformin hydrochloride 500 MG Oral Tablet *Reorder from [employer] for eRx and Interaction Alerts* 10/28/2016 Unknown citalopram 10 MG Oral Tablet ORAL citalopram 10 MG Oral TabletOriginal Medicationcitalopram 10 MG Oral Tablet *Reorder from [employer] for eRx and Interaction Alerts* 10/28/2016 Unknown Vital Signs Height 65 in 09/05/2024 Weight 179 lbs 09/05/2024 BMI 29.78 kg/m2 09/05/2024 Height-cm 165.1 cm 09/05/2024 Weight-kg 81.19 kg 09/05/2024 Encounters Encounter Location Date Provider Diagnosis [address] [id number] 09/05/2024 LIN FENG Tinea unguium B35.1 ; Pain in right toe(s) M79.674 ; Pain in left toe(s) M79.675 ; 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 Provider Name:LIN VARGAS, 02/27/2025 01:20:00 PM, [address] [place] [address], [id number], Progress Notes * MELISSA VALERIO EDOB:[birth year] (84 yo F)Acc No.[id number]:09/05/2024 Patient: MELISSA STEWART Provider: Anusha FENG :1940 A ge:83 Y S ex:Female Date:09/05/2024 Address:[address] [place], [place] [id number] Subjective: * Chief Complaints: * 1 . Check edema. * HPI: H PI: Follow Up Visit P atient presents for follow-up visit for a rash on the calf. Patient states that it is better but not completely gone yet. , MA: health system. * ROS: G eneral / Constitutional: Patient [...] [facility] for eRx and Interaction Alerts*, Medication [...] - M79.675 4 . 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 3. O ther specified dermatitis Notes: Superficial [...] develop.) * Billing Information: * Visit Code: 78569 Office Visit, Est Pt., Level 3. * Procedure Codes: * Electronic signature of AILYN FENG DPM on 01/06/2025 at 12:06 PM CDT Sign off status: Pending * Provider: Anusha FENG Date: 0 09/05/2024 Generated for Jacquie Oshea on: 1 12:06 PM CDT History and Physical Notes * HPI (History of Present Illness) Category Sub-Category Detail Notes Category Not es HPI Follow Up Visit Patient presents for follow-up visit for a rash on the calf. Patient states that it is better but not completely gone yet. , MA: [facility] Examination Category Sub-Category Detail [...]
--- OUTSIDE RECORDS SUMMARY | 2024-10-24 06:10 | XMS_ITS ---
Author Organization [facility] Address [address] [place], [place] [id number] Care Team Providers Care Massotherapist Name Role Phone FRANCISCO FUCHS Unavailable [phone] Christian Cardozo Unavailable Unavailable LIN FENG Unavailable [phone] Allergies No Known Allergies REASON FOR VISIT *General care Medications Medication SIG (Take, Route, Frequency, Duration) Notes Start Date End Date Status ezetimibe 10 MG / simvastatin 10 MG Oral Tablet [Vytorin] ORAL ezetimibe 10 MG / simvastatin 10 MG Oral Tablet [Vytorin]Original Medicationezetimibe 10 MG / simvastatin 10 MG Oral Tablet [Vytorin] *Reorder from [employer] for eRx and Interaction Alerts* 10/28/2016 Unknown citalopram 10 MG Oral Tablet ORAL citalopram 10 MG Oral TabletOriginal Medicationcitalopram 10 MG Oral Tablet *Reorder from [employer] for eRx and Interaction Alerts* 10/28/2016 Unknown metformin hydrochloride 500 MG Oral Tablet ORAL metformin hydrochloride 500 MG Oral TabletOriginal Medicationmetformin hydrochloride 500 MG Oral Tablet *Reorder from [employer] for eRx and Interaction Alerts* 10/28/2016 Unknown valsartan 40 MG Oral Tablet [Diovan] ORAL valsartan 40 MG Oral Tablet [Diovan]Original Medicationvalsartan 40 MG Oral Tablet [Diovan] *Reorder from [employer] for eRx and Interaction Alerts* 10/28/2016 Unknown Vital Signs Height 65 in 10/24/2024 Weight 179 lbs 10/24/2024 BMI 29.78 kg/m2 10/24/2024 Height-cm 165.1 cm 10/24/2024 Weight-kg 81.19 kg 10/24/2024 Encounters Encounter Location Date Provider Diagnosis [address] [id number] 10/24/2024 LIN FENG Tinea unguium B35.1 ; Pain in right toe(s) M79.674 ; Pain in left toe(s) M79.675 ; Atherosclerosis of [place] arteries of extremities with intermittent claudication, bilateral [...] toe(s) (ICD-10 - M79.675) 10/24/2024 Atherosclerosis of [place] arteries of extremities with intermittent claudication, bilateral [...] Treatment Treatment Notes Assessment Notes Atherosclerosis of [place] ar teries of extremities with intermittent claudication, [...] develop. Provider Name:LIN VARGAS, 02/27/2025 01:20:00 PM, [address] [place] [address], [place], [place], [id number], Progress Notes * MELISSA VALERIO EDOB:[birth year] (84 yo F)Acc No.[id number]:10/24/2024 Patient: MELISSA STEWART Provider: Anusha FENG :1940 A ge:83 Y S ex:Female Date:10/24/2024 Address:[address] [place], [place] [id number] Subjective: * Chief Complaints: * 1 . [...] izziness, gait abnormality, headache. * Medical History: N o Reported Medical History.Medical History Verified. * Surgical History: D enies Past Surgical History. * Hospitalization/Major Diagno stic Procedure: D enies Past Hospitalization. * Family History: F ather: PRN - [...] Medicationcitalopram 10 MG Oral Tablet *Reorder from [facility] for eRx and Interaction Alerts*, Unknown ezetimibe 10 MG / simvastatin 10 MG Oral Tablet [Vytorin] ORAL , Notes to Pharmacist: ezetimibe 10 MG / simvastatin 10 MG Oral Tablet [Vytorin]Original Medicationezetimibe 10 MG / simvastatin 10 MG Oral Tablet [Vytorin] *Reorder from [facility] for eRx and Interaction Alerts*, Unknown metformin hydrochloride 500 MG Oral Tablet ORAL , Notes to Pharmacist: metformin hydrochloride 500 MG Oral TabletOriginal Medicationmetformin hydrochloride 500 MG Oral Tablet *Reorder from [facility] for eRx and Interaction Alerts*, Unknown valsartan 40 MG Oral Tablet [Diovan] ORAL , Notes to Pharmacist: valsartan 40 MG Oral Tablet [Diovan]Original Medicationvalsartan 40 MG Oral Tablet [Diovan] *Reorder from [facility] for eRx and Interaction Alerts*, Medication [...] - M79.675 4 . A therosclerosis of [place] arteries of extremities with intermittent claudication, bilateral [...] develop.) * Billing Information: * Visit Code: 37546 Office Visit, Est Pt., Level 3. * Procedure Codes: * Electronic signature of AILYN FENG DPM on 01/06/2025 at 12:06 PM CDT Sign off status: Pending * Provider: Anusha FENG Date: 0 10/24/2024 Generated for Jacquie lord/Robert/Rhiannon on: 1 12:06 PM CDT History and [...]
--- OUTSIDE RECORDS SUMMARY | 2024-12-26 05:10 | XMS_ITS ---
Author Organization [facility] Address [address] [place], [place] [id number] Care Team Providers Care Histopathologist Name Role Phone FRANCISCO FUCHS Unavailable [phone] Christian Cardozo Unavailable Unavailable LIN FENG Unavailable [phone] Allergies No Known Allergies REASON FOR VISIT *General care Medications Medication SIG (Take, Route, Frequency, Duration) Notes Start Date End Date Status ezetimibe 10 MG / simvastatin 10 MG Oral Tablet [Vytorin] ORAL ezetimibe 10 MG / simvastatin 10 MG Oral Tablet [Vytorin]Original Medicationezetimibe 10 MG / simvastatin 10 MG Oral Tablet [Vytorin] *Reorder from [email or web address] for eRx and Interaction Alerts* 10/28/2016 Unknown citalopram 10 MG Oral Tablet ORAL citalopram 10 MG Oral TabletOriginal Medicationcitalopram 10 MG Oral Tablet *Reorder from [employer] for eRx and Interaction Alerts* 10/28/2016 Unknown valsartan 40 MG Oral Tablet [Diovan] ORAL valsartan 40 MG Oral Tablet [Diovan]Original Medicationvalsartan 40 MG Oral Tablet [Diovan] *Reorder from [employer] for eRx and Interaction Alerts* 10/28/2016 Unknown metformin hydrochloride 500 MG Oral Tablet ORAL metformin hydrochloride 500 MG Oral TabletOriginal Medicationmetformin hydrochloride 500 MG Oral Tablet *Reorder from [email or web address] for eRx and Interaction Alerts* 10/28/2016 Unknown Vital Signs Height 65 in 12/26/2024 Weight 179 lbs 12/26/2024 BMI 29.78 kg/m2 12/26/2024 Height-cm 165.1 cm 12/26/2024 Weight-kg 81.19 kg 12/26/2024 Encounters Encounter Location Date Provider Diagnosis [address] [id number] 12/26/2024 LIN FENG Tinea unguium B35.1 ; Pain in right toe(s) M79.674 ; Pain in left toe(s) M79.675 ; Atherosclerosis of [place] arteries of extremities with intermittent claudication, bilateral [...] toe(s) (ICD-10 - M79.675) 12/26/2024 Atherosclerosis of [place] arteries of extremities with intermittent claudication, bilateral [...] debris and necrotic tissue removed Atherosclerosis of [place] ar teries of extremities with intermittent claudication, [...] develop. Provider Name:LIN VARGAS, 02/27/2025 01:20:00 PM, [address] [place] [address], [id number], Progress Notes * MELISSA VALERIO EDOB:[birth year] (84 yo F)Acc No.[id number]:12/26/2024 Patient: MELISSA STEWART Provider: Anusha FENG :1940 A ge:84 Y S ex:Female Date:12/26/2024 Address:[address] [place], [place] [id number] Subjective: * Chief Complaints: * 1 . [...] Medicationcitalopram 10 MG Oral Tablet *Reorder from [employer] for eRx and Interaction Alerts*, Unknown ezetimibe 10 MG / simvastatin 10 MG Oral Tablet [Vytorin] ORAL , Notes to Pharmacist: ezetimibe 10 MG / simvastatin 10 MG Oral Tablet [Vytorin]Original Medicationezetimibe 10 MG / simvastatin 10 MG Oral Tablet [Vytorin] *Reorder from [email or web address] for eRx and Interaction Alerts*, Unknown metformin hydrochloride 500 MG Oral Tablet ORAL , Notes to Pharmacist: metformin hydrochloride 500 MG Oral TabletOriginal Medicationmetformin hydrochloride 500 MG Oral Tablet *Reorder from [employer] for eRx and Interaction Alerts*, Unknown valsartan 40 MG Oral Tablet [Diovan] ORAL , Notes to Pharmacist: valsartan 40 MG Oral Tablet [Diovan]Original Medicationvalsartan 40 MG Oral Tablet [Diovan] *Reorder from [employer] for eRx and Interaction Alerts*, Medication List [...] - M79.675 4 . 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 A cquired keratosis [keratoderma] palmaris et plantaris - L85.1 Plan: * Treatment: 2. A therosclerosis of [place] arteries of extremities with intermittent claudication, bilateral [...] any problems or signs of infection immediately. 4. O ther specified dermatitis Notes: resolved. [...] FENG Date: Generated for Jacquie lord/Robert/Rhiannon on: 12:06 PM CDT History and Physical Notes [...]
--- NOTE | ~2025-01-06 | CT_ITS ---
EXAMINATION:CT diagnostic chest wo con DATE: 01/06/2025 11:11 INDICATION: Solitary pulmonary nodule. TECHNIQUE: Computed tomography (CT) of the chest was performed without intravenous contrast. Automated exposure control and iterative reconstruction technique were employed. The dose-length product (DLP) was 90.42 mGy-cm. COMPARISON: Chest CT 07/16/2024 FINDINGS: There is minimal atelectasis in the lungs. There are a few scattered nodules in the lungs measuring up to 3 mm, likely benign. There is a 5 mm nodule in left upper lobe with interval improvement, likely benign. Calcified left lung nodules and calcified left hilar lymph nodes are consistent with old granulomatous disease. No pleural effusion. The heart size is normal. There are coronary artery calcifications. There are changes of coronary artery bypass grafting. No pericardial effusion. There is cortical thinning of the kidneys. IMPRESSION: 1. Small pulmonary nodules, likely benign. Reviewed, dictated and finalized at location E.
--- OUTSIDE RECORDS SUMMARY | 2025-01-06 12:06 | XMS_ITS | Encounter Summary ---
Author Organization [facility] Healthcare Address [address] [place] [address] Care Team Providers Care Vp Clinical Name Role Phone Christian Cardozo MD Primary Care Provider Encounter Details Date Type Department Care Team (Late st Contact Info) Description 06/11/2024 Orders Only [facility] [place] Health Information Management [address] [place] [address] Scanning, Provider Social History Tobacco Use Types Packs/Day Years Used Date Smoking Tobacco: Never Smokeless Tobacco: Never Alcohol Use Standard Drinks/Week Comments No 0 (1 standard drink = 0.6 oz pur e alcohol) Comments Unknown Sex and Gender Information Value Date Recorded Sex Assigned at Not on file 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
--- OUTSIDE RECORDS SUMMARY | 2025-01-06 12:06 | XMS_ITS | Encounter Summary ---
Author Organization [facility] Address [address] [place] [address] Phone Care Team Providers Care Access Lead Name Role Phone Christian Cardozo MD Primary Care Provider Encounter Details Date Type Department Care Team (Latest Contact Info) Description 08/04/2023 [facility] [address] [place] [address] Dhiraj Witt MD [address] [facility] [address] [place] [address] Encounter for other specified special examinations (Primary [...] Primary documented in this encounter Care Teams Access Lead Relationship Specialty Start Date End Date Christian Cardozo MD [address] [place] [address] PCP - General Family Medicine 08/04/23 documented as of this encounter
--- OUTSIDE RECORDS SUMMARY | 2025-01-06 12:07 | XMS_ITS | Clinical Summary ---
Author Organization [facility] Address [address] [place] [address] Care Team Providers Care Mathematical Engineer Name Role Phone Christian Cardozo MD Primary Care Provider [phone] Allergies No known active allergies Medications amLODIPine [...] Sex Assigned at Female 05/03/2024 2:10 PM INTERSTATE BUS DISPATCHER Legal Sex Female 5:08 PM CDT Gender [...] Exam 12/13/1959 DTaP, Tdap and Td Vaccines (1 - Tdap) 1960 Zoster Vaccines (1 of 2) 12/13/1991 Annual Medicare Wellness Visit 2006 Dexa Scan (General) 2006 RSV Immunization or 60+ Years (1 - 1-dose 75+ series) 2016 Pneumococcal Vaccine: 50+ Years (2 of 2 - PPSV23) 02/08/2018 12/14/2017 Hemoglobin A1C 11/04/2018 05/07/2018, 05/09/2012 COVID-19 Vaccine (1 - season) 2024 Influenza Adult (#1) 2024 01/01/2019, 12/14/2017, 12/28/2016, Additional history exists Lipid Panel 06/11/2025 06/11/2024 Meningococcal B Vaccine Aged Out No l onger eligible based on patient's age to complete this topic Meningococcal Vaccine Aged Out No patricia brooks eligible based on patient's age to complete this topic RSV Immunizations Under 20 Months Aged Out No longer eligible based on patient's age to complete this topic Procedures Procedure Name Priority Date/Time Associated Diagnosis Comments LIPID PANEL Routine 06/11/2024 10:39 AM CDT Type 2 diabetes mellitus with ESRD (end-stage renal disease) ([facility]) Inadequately controlled diabetes mellitus ([facility]) Encounter for long-term (current) use of insulin ([facility]) Other specified abnormal findings of blood chemistry Chronic kidney disease, unspecified HEMOGLOBIN, GLYCOSYLATED Routine 05/09/2012 11:40 AM INTERSTATE BUS DISPATCHER from Last 3 Months or Most Recently Relevant to Health Maintenance Results * (ABNORMAL) LIPID PANEL (06/11/2024 10:39 AM CDT) CHOLESTEROL 162 <200.0 MG/DL 06/11/2024 11:04 AM [facility] TRIGLYCERIDES 173(H) <150 MG/DL 06/11/2024 11:04 AM [facility] HDL 44 >40.0 MG/DL 06/11/2024 11:04 AM [facility] LDL (CALCULATED) 83 <100 MG/DL 06/11/2024 11:04 AM [facility] NON HDL CHOLESTEROL 118 <130 MG/DL 06/11/2024 11:04 AM [facility] CHOL/HDL RATIO 3.7 0.0 - 4.5 06/11/2024 11:04 AM [facility] VLDL CALCULATION 35 5 - 55 MG/DL 06/11/2024 11:04 AM [facility] LIPID INTERPRETATION 06/11/2024 11:04 AM [facility] Comment: NIH CONCENSUS REPORT RECOMMENDATIONS: ADULT CHILD LOW RISK: CHOLESTEROL <200 <170 TRIGLYCERIDE <150 --- HDL >=60 --- LDL <100 <110 BORDERLINE: CHOLESTEROL 200-239 170-199 TRIGLYCERIDE 150-199 --- HDL 40-59 --- LDL 100-159 110-129 HIGH RISK: CHOLESTEROL >=240 >=200 TRIGLYCERIDE >=200 --- HDL <40 --- LDL >=160 >=130 06/11/2024 10:3 9 AM CDT Krissy Dumont MD LABORATORY Final Result [facility] [address] [place] [address], * (ABNORMAL) HEMOGLOBIN, GLYCOSYLATED (05/09/2012 11:40 AM INTERSTATE BUS DISPATCHER) HGB A1C 6.9 INCREASED RISK OF DIABETES <5.7% NON-DIABETES 5.7-6.4% INCREASED RISK FOR FUTURE DIABETES > OR = 6.5 CONSISTENT WITH DIABETES STANDARDS OF MEDICAL CARE IN DIABETES-2010 DIABETES CARE, 33(SUPP 1): S1-S61,2010 (H) <5.7 % [employer] TO EPIC CONVERSION 05/09/2012 11:4 0 AM INTERSTATE BUS DISPATCHER 05/09/2012 11:40 AM INTERSTATE BUS DISPATCHER Narrative [facility] TO EPIC CONVERSION - 05/09/2012 12:21 PM INTERSTATE BUS DISPATCHER Result Communication: No patient communication needed at this time Ahsan Cash MD LABORATORY Final Result [facility] TO EPIC CONVERSION from Last 3 Months or Most Recently Relevant to Health Maintenance [place] [address] [address] MEDICARE Care Teams Mathematical Engineer Relationship Specialty Start Date End Date Christian Cardozo MD [address] [place] [id number] PCP - General FAMILY PRACTICE 03/14/24
--- OUTSIDE RECORDS SUMMARY | 2025-01-06 12:07 | XMS_ITS | Encounter Summary ---
Author Organization [facility] Healthcare Address [address] [place] [address] Care Team Providers Care Logistics Research Engineer Name Role Phone Christian Cardozo MD Primary Care Provider Encounter Details Date Type Department Care Team (Late st Contact Info) Description 04/22/2024 Orders Only [facility] Health Information Management [address] [place] [address] Scanning, Provider Social History Tobacco Use Types Packs/Day Years Used Date Smoking Tobacco: Never Smokeless Tobacco: Never Alcohol Use Standard Drinks/Week Comments No 0 (1 standard drink = 0.6 oz pur e alcohol) Comments Unknown Sex and Gender Information Value Date Recorded Sex Assigned at Not on file 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 Gender Identity Not on file Sexual Orientation Not on file documented as of this encounter Plan of Treatment Not on file documented as of this encounter Procedures Procedure Name Priority Date/Time Associated Diagnosis Comments SCAN - LABS 04/22/2024 documented in this encounter Results * SCAN - LABS (04/22/2024) us Provider Scanning Final Result documented in this encounter Visit Diagnoses Not on filedocumented in this encounter Care Teams Logistics Research Engineer Relationship Specialty Start Date End Date Christian Cardozo MD [address] [facility] [address] [place] [address] PCP - General Family Medicine 06/14/18 documented as of this encounter
--- OUTSIDE RECORDS SUMMARY | 2025-01-06 12:07 | XMS_ITS | Encounter Summary ---
Author Organization [facility] Healthcare Address [address] [place] [address] Care Team Providers Care Loft Rigger Name Role Phone Christian Cardozo MD Primary Care Provider Encounter Details Date Type Department Care Team (Late st Contact Info) Description 08/21/2024 Orders Only [facility] Health Information Management [address] [place] [address] Scanning, Provider Social History Tobacco Use Types Packs/Day Years Used Date Smoking Tobacco: Never Smokeless Tobacco: Never Alcohol Use Standard Drinks/Week Comments No 0 (1 standard drink = 0.6 oz pur e alcohol) Comments Unknown Sex and Gender Information Value Date Recorded Sex Assigned at Not on file 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
--- OUTSIDE RECORDS SUMMARY | 2025-01-06 12:07 | XMS_ITS | Encounter Summary ---
Author Organization [facility] Healthcare Address [address] [place] [address] Care Team Providers Care Data Entry Operator Name Role Phone Christian Cardozo MD Primary Care Provider Encounter Details Date Type Department Care Team (Late st Contact Info) Description 08/29/2024 Orders Only [facility] Health Information Management [address] [place] [address] Scanning, Provider Social History Tobacco Use Types Packs/Day Years Used Date Smoking Tobacco: Never Smokeless Tobacco: Never Alcohol Use Standard Drinks/Week Comments No 0 (1 standard drink = 0.6 oz pur e alcohol) Comments Unknown Sex and Gender Information Value Date Recorded Sex Assigned at Not on file 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
--- OUTSIDE RECORDS SUMMARY | 2025-01-06 12:07 | XMS_ITS | Encounter Summary ---
Author Organization [facility] Healthcare Address [address] [place] [address] Care Team Providers Care Php Programmer Name Role Phone Christian Cardozo MD Primary Care Provider Encounter Details Date Type Department Care Team (Late st Contact Info) Description 01/08/2024 Orders Only [facility] Health Information Management [address] [place] [address] Scanning, Provider Social History Tobacco Use Types Packs/Day Years Used Date Smoking Tobacco: Never Smokeless Tobacco: Never Alcohol Use Standard Drinks/Week Comments No 0 (1 standard drink = 0.6 oz pur e alcohol) Comments Unknown Sex and Gender Information Value Date Recorded Sex Assigned at Not on file 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
--- OUTSIDE RECORDS SUMMARY | 2025-01-06 12:07 | XMS_ITS | Patient Health Record ---
Author Organization [facility] Address [address] [place], [place] [id number] Care Team Providers Care State Inspector Name Role Phone FRANCISCO FUCHS Unavailable [phone] Christian Cardozo Unavailable Unavailable CARLYLE MARINO Unavailable [phone] LIN FENG Unavailable [phone] Allergies No Known Allergies Reason For Referral No Information Medications Medication SIG (Take, Route, Frequency, Duration) Notes Start Date End Date Status ezetimibe 10 MG / simvastatin 10 MG Oral Tablet [Vytorin] ORAL ezetimibe 10 MG / simvastatin 10 MG Oral Tablet [Vytorin]Original Medicationezetimibe 10 MG / simvastatin 10 MG Oral Tablet [Vytorin] *Reorder from GROU.PSSkiipi for eRx and Interaction Alerts* 10/28/2016 Unknown citalopram 10 MG Oral Tablet ORAL citalopram 10 MG Oral TabletOriginal Medicationcitalopram 10 MG Oral Tablet *Reorder from GROU.PSSkiipi for eRx and Interaction Alerts* 10/28/2016 Unknown valsartan 40 MG Oral Tablet [Diovan] ORAL valsartan 40 MG Oral Tablet [Diovan]Original Medicationvalsartan 40 MG Oral Tablet [Diovan] *Reorder from GROU.PSSkiipi for eRx and Interaction Alerts* 10/28/2016 Unknown metformin hydrochloride 500 MG Oral Tablet ORAL metformin hydrochloride 500 MG Oral TabletOriginal Medicationmetformin hydrochloride 500 MG Oral Tablet *Reorder from GROU.PSSkiipi for eRx and Interaction Alerts* 10/28/2016 Unknown Immunizations Vaccine Route Administration Date Status Comme nts Influenza, high dose seasonal Unknown 01/02/2023 Admini stered Vital Signs Height-cm 165.1 cm 12/26/2024 Weight-kg 81.19 kg 12/26/2024 Height 65 in 12/26/2024 Weight 179 lbs 12/26/2024 BMI 29.78 kg/m2 12/26/2024 Encounters Encounter Location Date Provider Diagnosis [address] [id number] 08/22/2024 LIN DAIGLEFORD Tinea unguium B35.1 ; Pain in right toe(s) M79.674 ; Pain in left toe(s) M79.675 ; Atherosclerosis of [place] arteries of extremities with intermittent claudication, bilateral legs I70.213 and Type 2 diabetes mellitus with other circulatory complications E11.[address] [id number] 08/29/2024 LIN DAIGLEFORD Tinea unguium B35.1 ; Pain in right toe(s) M79.674 ; Pain in left toe(s) M79.675 ; Atherosclerosis of [place] arteries of extremities with intermittent claudication, bilateral legs I70.213 ; Type 2 diabetes mellitus with other circulatory complications E11.59 and Other specified dermatitis L30.[address] [id number] 09/05/2024 LIN FENG Tinea unguium B35.1 ; Pain in right toe(s) M79.674 ; Pain in left toe(s) M79.675 ; Atherosclerosis of [place] arteries of extremities with intermittent claudication, bilateral legs I70.213 ; Type 2 diabetes mellitus with other circulatory complications E11.59 and Other specified dermatitis L30.[address] [id number] 10/24/2024 LIN FENG Tinea unguium B35.1 ; Pain in right toe(s) M79.674 ; Pain in left toe(s) M79.675 ; Atherosclerosis of [place] arteries of extremities with intermittent claudication, bilateral legs I70.213 ; Type 2 diabetes mellitus with other circulatory complications E11.59 and Other specified dermatitis L30.[address] [id number] 12/26/2024 LIN FENG Tinea unguium B35.1 ; Pain in right toe(s) M79.674 ; Pain in left toe(s) M79.675 ; Atherosclerosis of [place] arteries of extremities with intermittent claudication, bilateral legs I70.213 ; Type 2 diabetes mellitus with other circulatory complications E11.59 ; Other specified dermatitis L30.8 and Acquired keratosis [keratoderma] palmaris et plantaris L85.[address] [id number] 01/18/2024 CARLYLE VACALINSEY Other hammer toe(s) (acquired), right foot M20.41 ; Tinea unguium B35.1 ; Other hammer toe(s) (acquired), left foot M20.42 ; Pain in right toe(s) M79.674 ; Pain in left toe(s) M79.675 ; Unspecified atherosclerosis of [place] arteries of extremities, bilateral legs I70.203 and Type 2 diabetes mellitus with diabetic peripheral angiopathy without gangrene E11.51 [facility] [address] [place], [place] [id number] 03/28/2024 FRANCISCO OOK Tinea unguium B35.1 ; Pain in right toe(s) M79.674 ; Pain in left toe(s) M79.675 ; Atherosclerosis of [place] arteries of extremities with intermittent claudication, bilateral legs I70.213 and Type 2 diabetes mellitus with other circulatory complications E11.[address] [id number] 05/30/2024 FRANCISCO SNOOK Tinea unguium B35.1 ; Pain in right toe(s) M79.674 ; Pain in left toe(s) M79.675 ; Atherosclerosis of [place] arteries of extremities with intermittent claudication, bilateral legs I70.213 and Type 2 diabetes mellitus with other circulatory complications E11.59 Assessments Encounter Date Diagnosis (ICD Code) Assessment Notes Treatment Notes Treatment Clinical Notes Section Notes 01/18/2024 Tinea unguium (ICD-10 - B35.1) Aseptic [...] in right toe(s) (ICD-10 - M79.674) 12/26/2024 Tinea unguium (ICD-10 - B35.1) NAIL DEBRIDEMENT: Nails 1-5 Bilateral were debrided extensively with nail nippers and emery board, reducing length and girth to pink healthy tissue with any subungual debris and necrotic tissue removed 12/26/2024 Pain in right toe(s) (ICD-10 - M79.674) 12/26/2024 Pain in left toe(s) (ICD-10 - M79.675) 10/24/2024 Pain in left toe(s) (ICD-10 - [...] toe(s) (ICD-10 - M79.675) 08/29/2024 Atherosclerosis of [place] arteries of extremities with intermittent claudication, bilateral legs (ICD-10 - I70.213) Check and protect LE bilateral daily. Call if any changes or concerns. continue ROM stretches often through out the day. Call if symptoms are unresolving. return in 1 week 09/05/2024 Atherosclerosis of [place] arteries of extremities with intermittent claudication, bilateral legs (ICD-10 - I70.213) Check and protect LE bilateral daily. Call if any changes or concerns. continue ROM stretches often through out the day. Call if symptoms are unresolving. 10/24/2024 Atherosclerosis of [place] arteries of extremities with intermittent claudication, bilateral legs (ICD-10 - I70.213) Check and protect LE bilateral daily. Call if any changes or concerns. continue ROM stretches often through out the day. Call if symptoms are unresolving. 12/26/2024 Atherosclerosis of [place] arteries of extremities with intermittent claudication, bilateral [...] signs of infection immediately. 08/22/2024 Atherosclerosis of [place] arteries of extremities with intermittent claudication, bilateral [...] signs of infection immediately. 03/28/2024 Atherosclerosis of [place] arteries of extremities with intermittent claudication, bilateral legs (ICD-10 - I70.213) 05/30/2024 Atherosclerosis of [place] arteries of extremities with intermittent claudication, bilateral legs (ICD-10 - I70.213) 01/18/2024 Pain in left toe(s) (ICD-10 - M79.675) 01/18/2024 Unspecified atherosclerosis of [place] arteries of extremities, bilateral legs (ICD-10 - [...] blood thinnr which was increase this week. 12/26/2024 Other specified dermatitis (ICD-10 - L30.8) resolved. No pain or symptoms 10/24/2024 Other specified dermatitis (ICD-10 - L30.8) Superficial area of skin irritation RLE improving. No pain or symptoms 12/26/2024 Acquired keratosis [keratoderma] palmaris et plantaris (ICD-10 - L85.1) Hyperkeratosis x 2: The skin was prepped with isopropyl alcohol. Using a 15-blade scalpel, the hyperkeratotic skin lesions were sharply debrided down to healthy appearing skin. 01/18/2024 Type 2 diabetes mellitus with diabetic [...] Treatment Next Appt Details Provider Name:LIN VARGAS, 02/27/2025 01:20:00 PM, [address] [place] [address], [id number], Insurance Providers Payer Name Payer Address Payer Phone Subscriber Number Group Number Insured Name Patient Relationship to Insured Coverage Start Date Coverage End Date [facility] [address] [place], [place] [id number] MELISSA VALERIO Self - patient is the insured
--- OUTSIDE RECORDS SUMMARY | 2025-01-06 12:07 | XMS_ITS | Encounter Summary ---
Author Organization [facility] Address [facility] [place] [address] Care Team Providers Care School Adjustment Counselor Name Role Phone Bianca Silverman Primary Care Provider [phone] Christian Cardozo MD Primary Care Provider [phone] Encounter Details Date Type Department Care Team (Latest Contact Info) Description 01/30/2018 Abstract [facility] , Tanner Souza MD Social History Tobacco Use Types Packs/Day Years Used Date Smoking Tobacco: Never Assessed Comments Unknown Sex and Gender Information Value Date Recorded Sex Assigned at Female 05/03/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 Legal Sex Female 5:08 PM CDT Gender Identity Not on file Sexual Orientation Not on file documented as of this encounter Plan of Treatment Not on file documented as of this encounter Visit Diagnoses Not on filedocumented in this encounter Care Teams School Adjustment Counselor Relationship Specialty Start Date End Date Bianca Silverman FNP [facility] [place] [address] PCP - General NURSE PRACTITIONER 02/22/19 03/13/24 Christian Cardozo MD [address] [facility] [address] [place] [address] PCP - General FAMILY PRACTICE 03/14/24 documented as of this encounter
--- OUTSIDE RECORDS SUMMARY | 2025-01-06 12:07 | XMS_ITS | Encounter Summary ---
Author Organization [facility] Healthcare Address [address] [place] [address] Care Team Providers Care Water Trainer Name Role Phone Christian Cardozo MD Primary Care Provider Encounter Details Date Type Department Care Team (Late st Contact Info) Description 08/20/2024 Orders Only [facility] Health Information Management [address] [place] [address] Scanning, Provider Social History Tobacco Use Types Packs/Day Years Used Date Smoking Tobacco: Never Smokeless Tobacco: Never Alcohol Use Standard Drinks/Week Comments No 0 (1 standard drink = 0.6 oz pur e alcohol) Comments Unknown Sex and Gender Information Value Date Recorded Sex Assigned at Not on file 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
--- OUTSIDE RECORDS SUMMARY | 2025-01-06 12:07 | XMS_ITS | Encounter Summary ---
Author Organization [facility] Healthcare Address [address] [place] [address] Care Team Providers Care City Driver Name Role Phone Christian Cardozo MD Primary Care Provider Encounter Details Date Type Department Care Team (Late st Contact Info) Description 11/07/2024 Orders Only [facility] Health Information Management [address] [place] [address] Scanning, Provider Social History Tobacco Use Types Packs/Day Years Used Date Smoking Tobacco: Never Smokeless Tobacco: Never Alcohol Use Standard Drinks/Week Comments No 0 (1 standard drink = 0.6 oz pur e alcohol) Comments Unknown Sex and Gender Information Value Date Recorded Sex Assigned at Not on file 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 Gender Identity Not on file Sexual Orientation Not on file documented as of this encounter Plan of Treatment Not on file documented as of this encounter Procedures Procedure Name Priority Date/Time Associated Diagnosis Comments SCAN - LABS 11/07/2024 documented in this encounter Results * SCAN - LABS (11/07/2024) us Provider Scanning Final Result documented in this encounter Visit Diagnoses Not on filedocumented in this encounter Care Teams City Driver Relationship Specialty Start Date End Date Christian Cardozo MD [address] [place] [address] PCP - General Family Medicine 06/14/18 documented as of this encounter
--- OUTSIDE RECORDS SUMMARY | 2025-01-06 12:07 | XMS_ITS | Encounter Summary ---
Author Organization [facility] Address [facility] [place] [address] Care Team Providers Care File Conversion Operator Name Role Phone Bianca Silverman Primary Care Provider [phone] Christian Cardozo MD Primary Care Provider [phone] Encounter Details Date Type Department Care Team (Late st Contact Info) Description 09/01/2018 Abstract [facility] [address] [place] [address] , Generic Conversion, Social History Tobacco Use Types Packs/Day Years Used Date Smoking Tobacco: Never Assessed Comments Unknown Sex and Gender Information Value Date Recorded Sex Assigned at Female 05/03/2024 2:10 PM SERVICE EMPLOYEE Legal Sex Female 5:08 PM CDT Gender Identity Not on file Sexual Orientation Not on file documented as of this encounter Plan of Treatment Not on file documented as of this encounter Visit Diagnoses Not on filedocumented in this encounter Care Teams File Conversion Operator Relationship Specialty Start Date End Date Bianca Silverman FNP [address] [place] [address] PCP - General NURSE PRACTITIONER 02/22/19 03/13/24 Christian Cardozo MD [address] [facility] [address] [place] [address] PCP - General FAMILY PRACTICE 03/14/24 documented as of this encounter
--- OUTSIDE RECORDS SUMMARY | 2025-01-06 12:07 | XMS_ITS | Encounter Summary ---
Author Organization [facility] Healthcare Address [address] [place] [address] Care Team Providers Care Associate Professor Of Library Science Name Role Phone Christian Cardozo MD Primary Care Provider Encounter Details Date Type Department Care Team (Late st Contact Info) Description 08/23/2024 Orders Only [facility] Health Information Management [address] [place] [address] Scanning, Provider Social History Tobacco Use Types Packs/Day Years Used Date Smoking Tobacco: Never Smokeless Tobacco: Never Alcohol Use Standard Drinks/Week Comments No 0 (1 standard drink = 0.6 oz pur e alcohol) Comments Unknown Sex and Gender Information Value Date Recorded Sex Assigned at Not on file 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
--- OUTSIDE RECORDS SUMMARY | 2025-01-06 12:07 | XMS_ITS | Clinical Summary ---
Author Organization [facility] [address] Address [address] [place] [address] Care Team Providers Care Service Technician Name Role Phone Christian Cardozo MD [...] mg total) by mouth daily 022 Active atorvastatin (LIPITOR) 80 mg tablet Take 1 tablet (80 mg total) by mouth daily 025 Active hydrALAZINE (APRESOLINE) 50 mg tablet Take 1 tablet (50 mg total) by mouth 3 (three) times a day 025 Active metoprolol tartrate (LOPRESSOR) 25 mg immediate release tablet Take 1/2 (one-half) tablet by mouth twice daily 90 tablet 025 Active warfarin (COUMADIN) 2 mg tabletIndications: Chronic anticoagulation TAKE 2 TABLETS BY MOUTH DAILY ON MONDAY AND MONDAY, THEN TAKE 3 TABLETS DAILY ON ALL OTHER DAYS OR DIRECTED 60 tablet 025 Active warfarin (COUMADIN) 2 mg tabletIndications: Chronic anticoagulation Take 2 tablets (4 mg total) by mouth daily TAKE TWO TABLETS BY MOUTH ONCE DAILY ON MONDAY AND MONDAY; THEN TAKE 3 TABLETS BY MOUTH ON ALL OTHER DAYS OR DIRECTED 60 tablet 025 2024 Discontinued Active Problems Problem Noted Date Diagnosed Date Hyperglycemia 05/10/2018 Delirium 05/10/2018 Atrial fibrillation with RVR 05/10/2018 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 05/07/2018 Overview (05/08/2018): Added automatically from request for surgery [id number] S/P CABG (coronary artery bypass graft) Type 2 diabetes mellitus with other specified co mplication Encounters Date Type Department Care Team Description 12/26/2024 Anticoagulation Visit [facility] Medical [facility] Cardiology [address] [place] [address] Elda Mullins RN 12/18/2024 Anticoagulation Visit [facility] Cardiology [address] [place] [address] Micheline Kelley RN 12/11/2024 Anticoagulation Visit [facility] Cardiology [address] [place] [phone] Micheline Kelley RN 11/14/2024 Anticoagulation Visit [facility] Cardiology [address] [facility] [address] [place] [phone] Didi Wills RN 11/14/2024 Telephone [facility] Cardiology [address] [facility] [facility] [address] [place] [phone] Twin Brar MD 11/07/2024 Orders Only [facility] Health Information Management [address] [place] [address] Scanning, Provider from Last 3 Months Surgical History Surgery Date Site/Laterality Comments DILATION AND CURETTAGE OF UTERUS CATARACT EXTRACTION, BILATERAL SHOULDER SURGERY Medical History Medical History Date Comments Arthritis Diabetes mellitus Hypertension Hyperlipidemia Family History Medical History Relation [...] on file 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 Gender Identity Not on file Sexual Orientation [...] Additional history exists Influenza Vaccine (#1) 2024 9, 12/14/2017, 12/28/2016, Additional history exists Lipid Panel 06/11/2025 06/11/2024, 12/25, 05/13/2019, Additional history exists Pneumococcal vaccine 65+ Completed 12/14/2017, 11/27 Procedures Procedure Name Priority Date/Time Associated Diagnosis Comments PROTIME-INR Routine 12/26/2024 PROTIME-INR Routine 12/18/2024 PROTIME-INR Routine 12/11/2024 SCAN - LABS 11/07/2024 PROTIME-INR Routine 11/07/2024 LIPID PANEL Routine 01/08/2024 8:58 AM CDT EGFR STAT 05/16/2018 9:14 AM COSMETOLOGY INSTRUCTOR HEMOGLOBIN A1C Routine 05/07/2018 7:28 PM COSMETOLOGY INSTRUCTOR from Last 3 Months or Most Recently Relevant to Health Maintenance Results * (ABNORMAL) Protime-INR (12/26/2024) INR 1.50(A) 0.90 - 1.10 EXTERNAL LAB Blood us Historical Provider LAB BLOOD ORDERABLES Shelley steffany Result EXTERNAL LAB * (ABNORMAL) Protime-INR (12/18/2024) Pathologist [facility] INR 1.20(A) 0.90 - 1.10 EXTERNAL LAB Blood 12/18/2024 Result [facility] Historical Provider MD LAB BLOOD ORDERABLES Shelley l Result Performing Organization Address [facility] Co de Phone Number EXTERNAL LAB * (ABNORMAL) Protime-INR (12/11/2024) Pathologist [facility] INR 1.50(A) 0.90 - 1.10 EXTERNAL LAB Blood 12/11/2024 Result [facility] Provider MD LAB BLOOD ORDERABLES Shelley l Result Performing Organization Address [facility] Co de Phone Number EXTERNAL LAB * SCAN - LABS (11/07/2024) Provider Scanning Final Result * (ABNORMAL) Protime-INR (11/07/2024) [facility] INR 1.20(A) 0.90 - 1.10 EXTERNAL LAB Blood Result [facility] Provider MD LAB BLOOD ORDERABLES Shelley l Result Performing Organization Address [facility] Co de Phone Number EXTERNAL LAB * Lipid panel (01/08/2024 8:58 AM CDT) Pathologist [facility] SCRIBED Cholesterol, Total 150 <200 EXTERNAL LAB SCRIBED HDL 39 >40 EXTERNAL LAB SCRIBED LDL 63 <100 EXTERNAL LAB SCRIBED Triglycerides 242 <150 EXTERNAL LAB Blood Result [facility] Provider MD LAB BLOOD ORDERABLES Edit ed Result - Final Performing Organization Address [facility] Co de Phone Number EXTERNAL LAB * eGFR (05/16/2018 9:14 AM COSMETOLOGY INSTRUCTOR) Pathologist [facility] eGFR 49 mL/min/1.7 3 m2 JACOB SILVER Comment: Interpretive Data Reference Interval Normal >/= 90 mL/min/1.73m2 Mildly decreased* 60 - 89 mL/min/1.73m2 Mildly to moderately decreased 45 - 59 mL/min/1.73m2 Moderately to severely decreased 30 - 44 mL/min/1.73m2 Severely decreased 15 - 29 mL/min/1.73m2 Kidney Failure < 15 mL/min/1.73m2 *Relative to young adult level If -Ugandan multiply value by 1.16. Estimated glomerular filtration [...] 2015. Blood specimen (specimen) 05/16/2018 9:14 AM COSMETOLOGY INSTRUCTOR 05/16/2018 9:16 AM COSMETOLOGY INSTRUCTOR Laura JAMES CH - 05/16/2018 9:47 AM COSMETOLOGY INSTRUCTOR us Pari Candelario NP LAB BLOOD ORDERABLES Shelley jeter Result JACOB SILVER [address] Department [place] [address] * (ABNORMAL) Hemoglobin A1c (05/07/2018 7:28 PM COSMETOLOGY INSTRUCTOR) Hgb A1C 9.0(H) 4.0 - 5.6 % JACOB SILVER Estimated Average Glucose 212 mg/dL JACOB SILVER Comment: The ADA recommends reporting an estimated Average Glucose (eAG) with all Hemoglobin A1c results using the equation derived from a study of 507 normal and diabetic adults. Minority populations were underrepresented and children were not included. (Diabetes Care 31:2275-4443, 2008). The eAG is not equivalent to a fasting glucose. Blood specimen (specimen) 05/07/2018 7:28 PM COSMETOLOGY INSTRUCTOR 05/07/2018 8:02 PM COSMETOLOGY INSTRUCTOR Laura JAMES CH - 05/07/2018 8:18 PM COSMETOLOGY INSTRUCTOR Luke Magana MD LAB BLOOD [place] [address] [address] Department [place] [address] from Last 3 Months or Most Recently Relevant to Health Maintenance Insurance MEDICARE [facility] MEDICARE BLUE [facility] [employer] CHOICE MEDICARE O Advance Directives For more information, please contact: [phone] * Full Code (Latest Code Status on File) Date Activated Date Inactivated Comments 05/18/2018 7:34 PM * Full Code Date Activated Date Inactivated Comments 05/08/2018 3:11 PM 05/16/2018 5:35 PM Care Teams Service Technician Relationship Specialty Start Date End Date Christian Cardozo MD [address] [facility] [address] [place] [address] PCP - General Family Medicine 06/14/18
--- OUTSIDE RECORDS SUMMARY | 2025-01-06 12:07 | XMS_ITS | Encounter Summary ---
Author Organization [facility] Address [facility] [place] [address] Care Team Providers Care Corner Brace Block Machine Operator Name Role Phone Bianca Silverman Primary Care Provider [phone] Christian Cardozo MD Primary Care Provider [phone] Encounter Details Date Type Department Care Team (Late st Contact Info) Description 01/27/2014 Abstract [facility] CONVERSION [address] [place] [address] , Generic ConversionMD Social History Tobacco Use Types Packs/Day Years Used Date Smoking Tobacco: Never Assessed Comments Unknown Sex and Gender Information Value Date Recorded Sex Assigned at Female 05/03/2024 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 Legal Sex Female 5:08 PM CDT Gender Identity Not on file Sexual Orientation Not on file documented as of this encounter Plan of Treatment Not on file documented as of this encounter Visit Diagnoses Not on filedocumented in this encounter Care Teams Corner Brace Block Machine Operator Relationship Specialty Start Date End Date Bianca Silverman FNP [facility] [place] [address] PCP - General NURSE PRACTITIONER 02/22/19 03/13/24 Christian Cardozo MD [address] [facility] [address] [place] [address] PCP - General FAMILY PRACTICE 03/14/24 documented as of this encounter
--- OUTSIDE RECORDS SUMMARY | 2025-01-06 12:07 | XMS_ITS | Clinical Summary ---
Author Organization [facility] Address [address] [place] [address] Phone Care Team Providers Care Jacquard Plate Maker Name Role Phone Christian Cardozo MD [...] (Adult) (1 - 1-dose 75+ series) 2016 Medicare Initial AWV [id number] 03/27/2024 Influenza Immunization (#1) 2024 100 08/2022, 01/03/2022, 12/31/2020, Additional history exists SARS-COV-2 Immunization ( season) 2024 03/11/2021, 07/01/2020, 06/03/2020 Pneumococcal Immunization (50+ years) [...] patient's age to complete this topic Insurance MEDICARE C BS PPO Care Teams Jacquard Plate Maker Relationship Specialty Start Date End Date Christian Cardozo MD [address] [place] [address] PCP - General Family Medicine 08/04/23
--- OUTSIDE RECORDS SUMMARY | 2025-01-06 12:07 | XMS_ITS | Clinical Summary ---
Author Organization [facility] Address [address], [place] [address] Phone Care Team Providers Care Transit Department Clerk Name Role Phone Unavailable Primary Care Provider [...] Blood Pressure 152/80 04/23/2018 12:01 AM SAFETY FIRE BOSS Pulse - - Temperature 36.7 C (98.1 F) 04/23/2018 12:01 AM SAFETY FIRE BOSS Respiratory Rate - - Oxygen Saturation - - Inhaled Oxygen Concentration - - Weight 79.4 kg (175 lb) 04/23/2018 12:01 AM SAFETY FIRE BOSS Height 162.6 cm (5' 4) 04/23/2018 12:01 AM SAFETY FIRE BOSS Body Mass Index 30.04 04/23/2018 12:01 AM SAFETY FIRE BOSS Plan of Treatment Not on file
== END 2025-01-06 10:54 | disposition home or self-care (01) ==
PROVIDERS: PCP Family Medicine; Visit Provider Physician Assistant
DX: R91.8 Other nonspecific abnormal finding of lung field (principal)
CPT/HCPCS: 71250

== ENCOUNTER 2025-02-27 13:31 | Outpatient (RCR) | payer MEDICARE, SELFPAY ==
[2024-12-11 13:55] LABS: INR 1.5; Prothrombin Time 15.8 Seconds (9.50-12.1)
[2024-12-18 12:48] LABS: INR 1.2; Prothrombin Time 12.9 Seconds (9.50-12.1)
[2024-12-26 11:29] LABS: INR 1.5; Prothrombin Time 16.2 Seconds (9.50-12.1)
[2025-01-04 12:49] LABS: INR 3.7; Prothrombin Time 36.0 Seconds (9.50-12.1)
[2025-01-22 14:25] LABS: INR 1.4; Prothrombin Time 14.6 Seconds (9.50-12.1)
[2025-02-04 15:00] LABS: INR 1.7; Prothrombin Time 18.2 Seconds (9.50-12.1)
[2025-02-27 14:03] LABS: INR 2.6; Prothrombin Time 26.3 Seconds (9.50-12.1)
== END 2025-03-11 23:59 | disposition home or self-care (01) ==
LOC: CHSLAB 13:31
PROVIDERS: PCP Family Medicine; Visit Provider Specialist
DX: I48.91 Unspecified atrial fibrillation (principal)
CPT/HCPCS: 36415; 85610

== ENCOUNTER 2025-03-10 13:01 | Outpatient (CLI) | payer MEDICARE, SELFPAY ==
--- OUTSIDE RECORDS SUMMARY | 2024-08-22 08:30 | XMS_ITS ---
Author Organization [facility] Address [address] [place], [place] [id number] Care Team Providers Care Place Change Roof Bolter Name Role Phone FRANCISCO FUCHS Unavailable [phone] Christian Cardozo Unavailable Unavailable LIN FENG Unavailable [phone] Allergies No Known Allergies REASON FOR VISIT *General care Medications Medication SIG (Take, Route, Frequency, Duration) Notes Start Date End Date Status citalopram 10 MG Oral Tablet ORAL citalopram 10 MG Oral TabletOriginal Medicationcitalopram 10 MG Oral Tablet *Reorder from [employer] for eRx and Interaction Alerts* 10/28/2016 Unknown metformin hydrochloride 500 MG Oral Tablet ORAL metformin hydrochloride 500 MG Oral TabletOriginal Medicationmetformin hydrochloride 500 MG Oral Tablet *Reorder from [employer] for eRx and Interaction Alerts* 10/28/2016 Unknown ezetimibe 10 MG / simvastatin 10 MG Oral Tablet [Vytorin] ORAL ezetimibe 10 MG / simvastatin 10 MG Oral Tablet [Vytorin]Original Medicationezetimibe 10 MG / simvastatin 10 MG Oral Tablet [Vytorin] *Reorder from [employer] for eRx and Interaction Alerts* 10/28/2016 Unknown valsartan 40 MG Oral Tablet [Diovan] ORAL valsartan 40 MG Oral Tablet [Diovan]Original Medicationvalsartan 40 MG Oral Tablet [Diovan] *Reorder from [employer] for eRx and Interaction Alerts* 10/28/2016 Unknown Social History Social History Additional Details Category Social Info Options Details Migrated Social History Migrated Social History Smoking Status : Never smoked , History of tobacco use : Vital Signs Height 65 in 08/22/2024 Weight 179 lbs 08/22/2024 BMI 29.78 kg/m2 08/22/2024 Height-cm 165.1 cm 08/22/2024 Weight-kg 81.19 kg 08/22/2024 Encounters Encounter Location Date Provider Diagnosis [address] [id number] 08/22/2024 LIN FENG Tinea unguium B35.1 ; Pain in right toe(s) M79.674 ; Pain in left toe(s) M79.675 ; Atherosclerosis of [place] arteries of extremities with intermittent claudication, bilateral legs I70.213 and Type 2 diabetes mellitus with other circulatory complications E11.59 Assessments Encounter Date Diagnosis (ICD Code) Assessment Notes Treatment Notes Treatment Clinical Notes Section Notes 08/22/2024 Tinea unguium (ICD-10 - B35.1) NAIL DEBRIDEMENT: Nails 1-5 Bilateral were debrided extensively with nail nippers and emery board, reducing length and girth to pink healthy tissue with any subungual debris and necrotic tissue removed 08/22/2024 Pain in right toe(s) (ICD-10 - M79.674) 08/22/2024 Pain in left toe(s) (ICD-10 - M79.675) 08/22/2024 Atherosclerosis of [place] arteries of extremities with intermittent claudication, bilateral legs (ICD-10 - I70.213) Check and protect LE bilateral daily. Call if any changes or concerns. 08/22/2024 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 The patient was instructed to check his feet daily to report any problems or signs of infection immediately. Plan Of Treatment Treatment Notes Assessment Notes Tinea unguium NAIL DEBRIDEMENT: Na ils 1-5 Bilateral were debrided extensively with nail nippers and emery board, reducing length and girth to pink healthy tissue with any subungual debris and necrotic tissue removed Atherosclerosis of [place] ar teries of extremities with intermittent claudication, bilateral legs Check and protect LE bilateral daily. Call if any changes or concerns. Type 2 diabetes mellitus wit h other circulatory complications Diabetic Foot Care: The patient was educated on diabetes and the lower extremity. The patient was instructed to check his feet daily to report any problems or signs of infection immediately. Next Appt Details Follow Up: 10 - 12 weeks, Re ason: At-Risk Foot care, sooner if problems develop. Provider Name:LIN VARGAS, 05/01/2025 01:10:00 PM, [address] [place] [address], [id number], History and Physical Notes * HPI (History of Present Illness) Category Sub-Category Detail Notes Category Not es HPI General care Patient presents to the office for diabetic foot care. Patient states that their nails are thickened, elongated and painful. Patient states that it is aggravated by shoe gear. Onset is gradual., Patient denies taking blood thinners., Date last seen by Dr. Cardozo was July 2024., Initials LB Examination Category Sub-Category Detail [...] inversion, and eversion in bilateral lower extremities Progress Notes * MELISSA VALERIO EDOB:[birth year] (84 yo F)Acc No.[id number]:08/22/2024 Patient: MARCELINO STEWARTPORFIRIO Alvarez Provider: Anusha FENG :1940 A ge:83 Y S ex:Female Date:08/22/2024 Address:[address] [place], [place] [id number] Subjective: * Chief Complaints: * * General care * HPI: H PI: General care P atient presents to the office for diabetic foot care. Patient states that their nails are thickened, elongated and painful. Patient states that it is aggravated by shoe gear. Onset is gradual., Patient denies taking blood thinners., Date last seen by Dr. Cardozo was July 2024., Initials LB. * ROS: G eneral [...] izziness, gait abnormality, headache. * Medical History: No Medical History Documented Medical History Verified * Surgical History: No Surgical History documented. Surgical History verified. * Hospitalization/Major Diagno stic Procedure: No Hospitalization Documented. Hospitalization Verified. * Family History: F ather: PRN - Father: :: Cancer,,known absent . M other: PRN - Mother: :: Cancer,,known absent , :: Diabetes,,known absent . F amily History Verified.. * Social History: M igrated Social History: M igrated Social History: Smoking Status : Never smoked , History of tobacco use :. Social History Verified. * Medications: U nknowncitalopram 10 MG Oral Tablet ORAL , Notes to Pharmacist: citalopram 10 MG Oral TabletOriginal Medicationcitalopram 10 MG Oral Tablet *Reorder from [employer] for eRx and Interaction Alerts*ezetimibe 10 MG / simvastatin 10 MG Oral Tablet [Vytorin] ORAL , Notes to Pharmacist: ezetimibe 10 MG / simvastatin 10 MG Oral Tablet [Vytorin]Original Medicationezetimibe 10 MG / simvastatin 10 MG Oral Tablet [Vytorin] *Reorder from [employer] for eRx and Interaction Alerts*metformin hydrochloride 500 MG Oral Tablet ORAL , Notes to Pharmacist: metformin hydrochloride 500 MG Oral TabletOriginal Medicationmetformin hydrochloride 500 MG Oral Tablet *Reorder from [employer] for eRx and Interaction Alerts*valsartan 40 MG Oral Tablet [Diovan] ORAL , Notes to Pharmacist: valsartan 40 MG Oral Tablet [Diovan]Original Medicationvalsartan 40 MG Oral Tablet [Diovan] *Reorder from [facility] for eRx and Interaction Alerts*Medication List reviewed and reconciled with the patientUnknown citalopram 10 MG Oral Tablet ORAL , Notes to Pharmacist: citalopram 10 MG Oral TabletOriginal Medicationcitalopram 10 MG Oral Tablet *Reorder from [facility] for eRx and Interaction Alerts*Unknown ezetimibe 10 MG / simvastatin 10 MG Oral Tablet [Vytorin] ORAL , Notes to Pharmacist: ezetimibe 10 MG / simvastatin 10 MG Oral Tablet [Vytorin]Original Medicationezetimibe 10 MG / simvastatin 10 MG Oral Tablet [Vytorin] *Reorder from [facility] for eRx and Interaction Alerts*Unknown metformin hydrochloride 500 MG Oral Tablet ORAL , Notes to Pharmacist: metformin hydrochloride 500 MG Oral TabletOriginal Medicationmetformin hydrochloride 500 MG Oral Tablet *Reorder from [facility] for eRx and Interaction Alerts*Unknown valsartan 40 MG Oral Tablet [Diovan] ORAL , Notes to Pharmacist: valsartan 40 MG Oral Tablet [Diovan]Original Medicationvalsartan 40 MG Oral Tablet [Diovan] *Reorder from [facility] for eRx and Interaction Alerts*Medication List reviewed and reconciled with the patient * Allergies: N .K.D.A.yesAllergies Verified. Objective: * Vitals: W t: 179 lbs, Wt-k.19 kg, Ht: 65 in, Ht-cm: 165.1 cm, BMI: 29.78 Index, Body Surface Area: 1.93. * Examination: P hysical Examination: General appearance: [...] - M79.675 4 . A therosclerosis of [place] arteries of extremities with intermittent claudication, bilateral legs - I70.213 5 . 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 A therosclerosis of [place] arteries of extremities with intermittent claudication, bilateral legs Notes: Check and protect LE bilateral daily. Call if any changes or concerns. 3. T ype 2 diabetes mellitus with other circulatory complications Notes: Diabetic Foot Care: The patient was educated on diabetes and the lower extremity. The patient was instructed to check his feet daily to report any problems or signs of infection immediately.? * Immunizations: Immunization record has been reviewed and updated. * Follow Up: 1 0 - 12 weeks (Reason: At-Risk Foot care, sooner if problems develop.) Billing Information: * Visit Code: 73415 Office Visit, Est Pt., Level 3. * Procedure Codes: * Electronic signature of AILYN FENG DPM on 03/10/2025 at 01:54 PM [employer] Sign off status: Pending * Provider: Anusha FENG Date: 0 08/22/2024 Generated for Jacquie lord/Robert/Rhiannon on: 1 05/11/2024 01:54 PM [employer]
--- OUTSIDE RECORDS SUMMARY | 2024-08-29 06:30 | XMS_ITS ---
Author Organization [facility] Address [address] [place], [place] [id number] Care Team Providers Care Litigation Counsel Name Role Phone FRANCISCO FUCHS Unavailable [phone] Christian Cardozo Unavailable Unavailable LIN FENG Unavailable [phone] REASON FOR VISIT spot on ankle Medications Medication SIG (Take, Route, Frequency, Duration) Notes Start Date End Date Status valsartan 40 MG Oral Tablet [Diovan] ORAL valsartan 40 MG Oral Tablet [Diovan]Original Medicationvalsartan 40 MG Oral Tablet [Diovan] *Reorder from [employer] for eRx and Interaction Alerts* 10/28/2016 Unknown citalopram 10 MG Oral Tablet ORAL citalopram 10 MG Oral TabletOriginal Medicationcitalopram 10 MG Oral Tablet *Reorder from [employer] for eRx and Interaction Alerts* 10/28/2016 Unknown metformin hydrochloride 500 MG Oral Tablet ORAL metformin hydrochloride 500 MG Oral TabletOriginal Medicationmetformin hydrochloride 500 MG Oral Tablet *Reorder from [employer] for eRx and Interaction Alerts* 10/28/2016 Unknown ezetimibe 10 MG / simvastatin 10 MG Oral Tablet [Vytorin] ORAL ezetimibe 10 MG / simvastatin 10 MG Oral Tablet [Vytorin]Original Medicationezetimibe 10 MG / simvastatin 10 MG Oral Tablet [Vytorin] *Reorder from [employer] for eRx and Interaction Alerts* 10/28/2016 Unknown Social History Social History Additional Details Category Social Info Options Details Migrated Social History Migrated Social History Smoking Status : Never smoked , History of tobacco use : Vital Signs Height 65 in 08/29/2024 Weight 179 lbs 08/29/2024 BMI 29.78 kg/m2 08/29/2024 Height-cm 165.1 cm 08/29/2024 Weight-kg 81.19 kg 08/29/2024 Encounters Encounter Location Date Provider Diagnosis [address] [id number] 08/29/2024 LIN DAIGLEFORD Tinea unguium B35.1 ; Pain in right toe(s) M79.674 ; Pain in left toe(s) M79.675 ; 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 Call if any changes or concerns. continue ROM stretches often through out the day. Call if symptoms are unresolving. return in 1 week 08/29/2024 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 The patient was instructed to check his feet daily to report any problems or signs of infection immediately. 08/29/2024 Other specified dermatitis (ICD-10 - L30.8) superficial area of skin irritation. Unna Boot: An unna boot was applied to the affected foot. The patient was instructed to keep it dry. Plan Of Treatment Treatment Notes Assessment Notes Atherosclerosis of igiugig ar teries of extremities with intermittent claudication, bilateral legs Check and protect LE bilateral daily. Call if any changes or concerns. continue ROM stretches often through out the day. Call if symptoms are unresolving. return in 1 week Type 2 diabetes mellitus wit h other circulatory complications Diabetic Foot Care: The patient was educated on diabetes and the lower extremity. The patient was instructed to check his feet daily to report any problems or signs of infection immediately. Other specified dermatitis superficial area of skin irritation. Unna Boot: An unna boot was applied to the affected foot. The patient was instructed to keep it dry. Next Appt Details Follow Up: 10 - 12 weeks, Re ason: At-Risk Foot care, sooner if problems develop. Provider Name:LIN VARGAS, 05/01/2025 01:10:00 PM, [address] [place] [address], [id number], History and Physical Notes * HPI (History of Present Illness) Category Sub-Category Detail Notes Category Not es HPI New Complaint Established tawanna ent presents with a new complaint., Patient complains of an issue to a red rash on the right calf. Patient states that a red spot showed up on her calf last Monday and has since spread. She states that she has put Neosporin on the rash, but it has not helped. Patient states that the rash is painful. , MA: [facility] Examination Category Sub-Category Detail Notes Category Not es Dermatologic Skin findings: Skin is thin, at rophic and lacking pedal hair. right lateral anterior mid tibial area there is a superficial blanchable discoloration on surface of skin. There is no heat, palpable mass, ecchymosis, blister formation, abrasion, discharge, or localized edema. Upon palpation patient does not react and there is no hardened soft tissue or crepitus. Calves are loose and nontender and equal bilateral. Active and passive ROM does not exhibit pain. The patient feels pain in area that comes and goes and does not recall an injury or exposure to a chemical or fabric. Neosporin did not help or hurt. Upon application of Unna boot, patient voiced relief of some discomfort. Nail pathology: Nails 1, 2, 3, 4, an d 5 bilateral are thick, discolored, and dystrophic with subungual debris. [...] * MELISSA VALERIO EDOB:[birth year] (84 yo F)Acc No.[id number]:08/29/2024 Patient: MELISSA STEWART Provider: Anusha FENG :1940 A ge:83 Y S ex:Female Date:08/29/2024 Address:[address] [place], [place] [id number] Subjective: * Chief Complaints: * S pot on ankle * HPI: H PI: New Complaint E stablished patient presents with a new complaint., Patient complains of an issue to a red rash on the right calf. Patient states that a red spot showed up on her calf last Monday and has since spread. She states that she has put Neosporin on the rash, but it has not helped. Patient states that the rash is painful. , MA: [facility]. * ROS: G eneral / Constitutional: Patient denies w eakness. M usculoskeletal: Patient complains of h ammertoes. P eripheral Vascular: Patient denies b lanching of skin, cold extremities, decreased sensation in extremities. S kin: Patient complains of r thea, dry skin, discoloration. ? N eurologic: Patient denies d izziness, gait abnormality, headache. * Family History: F ather: PRN - [...] Medicationcitalopram 10 MG Oral Tablet *Reorder from [employer] for eRx and Interaction Alerts*ezetimibe 10 MG / simvastatin 10 MG Oral Tablet [Vytorin] ORAL , Notes to Pharmacist: ezetimibe 10 MG / simvastatin 10 MG Oral Tablet [Vytorin]Original Medicationezetimibe 10 MG / simvastatin 10 MG Oral Tablet [Vytorin] *Reorder from [facility] for eRx and Interaction Alerts*metformin hydrochloride 500 MG Oral Tablet ORAL , Notes to Pharmacist: metformin hydrochloride 500 MG Oral TabletOriginal Medicationmetformin hydrochloride 500 MG Oral Tablet *Reorder from [facility] for eRx and Interaction Alerts*valsartan 40 MG Oral Tablet [Diovan] ORAL , Notes to Pharmacist: valsartan 40 MG Oral Tablet [Diovan]Original Medicationvalsartan 40 MG Oral Tablet [Diovan] *Reorder from [facility] for eRx and Interaction Alerts*Medication List reviewed and reconciled with the patientUnknown citalopram 10 MG Oral Tablet ORAL , Notes to Pharmacist: citalopram 10 MG Oral TabletOriginal Medicationcitalopram 10 MG Oral Tablet *Reorder from [facility] for eRx and Interaction Alerts*Unknown ezetimibe 10 MG / simvastatin 10 MG Oral Tablet [Vytorin] ORAL , Notes to Pharmacist: ezetimibe 10 MG / simvastatin 10 MG Oral Tablet [Vytorin]Original Medicationezetimibe 10 MG / simvastatin 10 MG Oral Tablet [Vytorin] *Reorder from [facility] for eRx and Interaction Alerts*Unknown metformin hydrochloride 500 MG Oral Tablet ORAL , Notes to Pharmacist: metformin hydrochloride 500 MG Oral TabletOriginal Medicationmetformin hydrochloride 500 MG Oral Tablet *Reorder from [facility] for eRx and Interaction Alerts*Unknown valsartan 40 MG Oral Tablet [Diovan] ORAL , Notes to Pharmacist: valsartan 40 MG Oral Tablet [Diovan]Original Medicationvalsartan 40 MG Oral Tablet [Diovan] *Reorder from [facility] for eRx and Interaction Alerts*Medication List reviewed and reconciled with the patient Objective: * Vitals: W t: 179 lbs, Wt-k.19 kg, Ht: 65 in, Ht-cm: 165.1 cm, BMI: 29.78 Index, Body Surface Area: 1.93. * Examination: P hysical Examination: General appearance: A lert, pleasant, well-nourished and in no acute distress. D ermatologic: Skin findings: S kin is thin, atrophic and lacking pedal hair. right lateral anterior mid tibial area there is a superficial blanchable discoloration on surface of skin. There is no heat, palpable mass, e cchymosis, blister formation, a brasion, d ischarge, or localized edema. Upon palpation patient does not react and there is no hardened soft tissue or crepitus. Calves are loose and nontender and equal bilateral. Active and passive ROM does not exhibit pain. The patient feels pain in area that comes and goes and does not recall an injury or exposure to a chemical or fabric. Neosporin did not help or hurt. Upon application of Unna boot, patient voiced relief of some discomfort. . Nail pathology: N ails 1, 2, 3, 4, and 5 bilateral are thick, discolored, and dystrophic with subungual debris. [...] - M79.675 4 . A therosclerosis of igiugig arteries of extremities with intermittent claudication, bilateral legs - I70.213 5 . T ype 2 diabetes mellitus with other circulatory complications - E11.59 6 .?Other specified dermatitis - L30.8 Plan: * Treatment: 2. T ype 2 diabetes mellitus with other circulatory complications Notes: Diabetic Foot Care: The patient was educated on diabetes and the lower extremity. The patient was instructed to check his feet daily to report any problems or signs of infection immediately.? 3. O ther specified dermatitis Notes: superficial area of skin irritation. Unna Boot: An unna boot was applied to the affected foot. The patient was instructed to keep it dry. ? * Immunizations: Immunization record has been reviewed and updated. * Procedure Codes: 2 9580 APPLICATION OF PASTE BOOT * Follow Up: 1 0 - 12 weeks (Reason: At-Risk Foot care, sooner if problems develop.) Billing Information: * Visit Code: 81451 Office Visit, Est Pt., Level 3. * Procedure Codes: 32478 APPLICATION OF PASTE BOOT. 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
--- OUTSIDE RECORDS SUMMARY | 2024-09-05 06:30 | XMS_ITS ---
Author Organization [facility] Address [address] [place], [place] [address] Care Team Providers Care Calender Machine Operator Helper Name Role Phone FRANCISCO FUCHS Unavailable [phone] Christian Cardozo Unavailable Unavailable LIN FENG Unavailable [phone] REASON FOR VISIT check edema Medications Medication SIG (Take, Route, Frequency, Duration) Notes Start Date End Date Status valsartan 40 MG Oral Tablet [Diovan] ORAL valsartan 40 MG Oral Tablet [Diovan]Original Medicationvalsartan 40 MG Oral Tablet [Diovan] *Reorder from [employer] for eRx and Interaction Alerts* 10/28/2016 Unknown ezetimibe 10 MG / simvastatin 10 MG Oral Tablet [Vytorin] ORAL ezetimibe 10 MG / simvastatin 10 MG Oral Tablet [Vytorin]Original Medicationezetimibe 10 MG / simvastatin 10 MG Oral Tablet [Vytorin] *Reorder from [employer] for eRx and Interaction Alerts* 10/28/2016 Unknown metformin hydrochloride 500 MG Oral Tablet ORAL metformin hydrochloride 500 MG Oral TabletOriginal Medicationmetformin hydrochloride 500 MG Oral Tablet *Reorder from [employer] for eRx and Interaction Alerts* 10/28/2016 Unknown citalopram 10 MG Oral Tablet ORAL citalopram 10 MG Oral TabletOriginal Medicationcitalopram 10 MG Oral Tablet *Reorder from [employer] for eRx and Interaction Alerts* 10/28/2016 Unknown Social History Social History Additional Details Category Social Info Options Details Migrated Social History Migrated Social History Smoking Status : Never smoked , History of tobacco use : Vital Signs Height 65 in 09/05/2024 Weight 179 lbs 09/05/2024 BMI 29.78 kg/m2 09/05/2024 Height-cm 165.1 cm 09/05/2024 Weight-kg 81.19 kg 09/05/2024 Encounters Encounter Location Date Provider Diagnosis [address] [id number] 09/05/2024 LIN FENG Tinea unguium B35.1 ; Pain in right toe(s) M79.674 ; Pain in left toe(s) M79.675 ; Atherosclerosis of [place] arteries of extremities with intermittent claudication, bilateral legs I70.213 ; Type 2 diabetes mellitus with other circulatory complications E11.59 and Other specified dermatitis L30.8 Assessments Encounter Date Diagnosis (ICD Code) Assessment Notes Treatment Notes Treatment Clinical Notes Section Notes 09/05/2024 Tinea unguium (ICD-10 - B35.1) 09/05/2024 Pain in right toe(s) (ICD-10 - M79.674) 09/05/2024 Pain in left toe(s) (ICD-10 - M79.675) 09/05/2024 Atherosclerosis of [place] arteries of extremities with intermittent claudication, bilateral legs (ICD-10 - I70.213) Check and protect LE bilateral daily. Call if any changes or concerns. continue ROM stretches often through out the day. Call if symptoms are unresolving. 09/05/2024 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 The patient was instructed to check his feet daily to report any problems or signs of infection immediately. 09/05/2024 Other specified dermatitis (ICD-10 - L30.8) Superficial area of skin irritation RLE improving. Unna Boot was helpful to patient. She removed it 3 days in as it got a bit dirty. She saw no swelling and feels 80% better than last week. She will soak with epsom salt and warm water twice a day for 2 weeks. She will call if any concerns or changes. She is on blood thinnr which was increase this week. Plan Of Treatment Treatment Notes Assessment Notes Atherosclerosis of [place] ar teries of extremities with intermittent claudication, bilateral legs Check and protect LE bilateral daily. Call if any changes or concerns. continue ROM stretches often through out the day. Call if symptoms are unresolving. Type 2 diabetes mellitus wit h other circulatory complications Diabetic Foot Care: The patient was educated on diabetes and the lower extremity. The patient was instructed to check his feet daily to report any problems or signs of infection immediately. Other specified dermatitis Superficial a robin of skin irritation RLE improving. Unna Boot was helpful to patient. She removed it 3 days in as it got a bit dirty. She saw no swelling and feels 80% better than last week. She will soak with epsom salt and warm water twice a day for 2 weeks. She will call if any concerns or changes. She is on blood thinnr which was increase this week. Next Appt Details Follow Up: 10 - 12 weeks, Re ason: At-Risk Foot care, sooner if problems develop. Provider Name:LIN VARGAS, 05/01/2025 01:10:00 PM, [address] [place] [address], [id number], History and Physical Notes * HPI (History of Present Illness) Category Sub-Category Detail Notes Category Not es HPI Follow Up Visit Patient presents for follow-up visit for a rash on the calf. Patient states that it is better but not completely gone yet. , MA: [facility] Examination Category Sub-Category Detail Notes Category Not es Dermatologic Skin findings: Skin is thin, at rophic and lacking pedal hair. right lateral anterior mid tibial area there is a superficial blanchable discoloration on surface of skin. There is no heat, palpable mass, ecchymosis, blister formation, abrasion, discharge, or localized edema. Upon palpation patient feels a 1-2/10 discomfort. there is no hardened deep soft tissue or crepitus. Calves are loose and nontender and equal bilateral. Active and passive ROM does not exhibit pain. The patient feels pain in area comes and goes and does not recall an injury or exposure to a chemical or fabric. Nail pathology: Nails 1, 2, 3, 4, [...] * MELISSA VALERIO EDOB:[birth year] (84 yo F)Acc No.[id number]:09/05/2024 Patient: MELISSA STEWART Provider: Anusha FENG :1940 A ge:83 Y S ex:Female Date:09/05/2024 Address:[address] [place], [place] [id number] Subjective: * Chief Complaints: * C heck edema * HPI: H PI: Follow Up Visit P atient presents for follow-up visit for a rash on the calf. Patient states that it is better but not completely gone yet. , MA: [facility]. * ROS: G eneral / [...] Medicationcitalopram 10 MG Oral Tablet *Reorder from [employer] for eRx and Interaction Alerts*ezetimibe 10 MG / simvastatin 10 MG Oral Tablet [Vytorin] ORAL , Notes to Pharmacist: ezetimibe 10 MG / simvastatin 10 MG Oral Tablet [Vytorin]Original Medicationezetimibe 10 MG / simvastatin 10 MG Oral Tablet [Vytorin] *Reorder from [facility] for eRx and Interaction Alerts*metformin hydrochloride 500 MG Oral Tablet ORAL , Notes to Pharmacist: metformin hydrochloride 500 MG Oral TabletOriginal Medicationmetformin hydrochloride 500 MG Oral Tablet *Reorder from [facility] for eRx and Interaction Alerts*valsartan 40 MG Oral Tablet [Diovan] ORAL , Notes to Pharmacist: valsartan 40 MG Oral Tablet [Diovan]Original Medicationvalsartan 40 MG Oral Tablet [Diovan] *Reorder from [facility] for eRx and Interaction Alerts*Medication List reviewed and reconciled with the patientUnknown citalopram 10 MG Oral Tablet ORAL , Notes to Pharmacist: citalopram 10 MG Oral TabletOriginal Medicationcitalopram 10 MG Oral Tablet *Reorder from [facility] for eRx and Interaction Alerts*Unknown ezetimibe 10 MG / simvastatin 10 MG Oral Tablet [Vytorin] ORAL , Notes to Pharmacist: ezetimibe 10 MG / simvastatin 10 MG Oral Tablet [Vytorin]Original Medicationezetimibe 10 MG / simvastatin 10 MG Oral Tablet [Vytorin] *Reorder from [facility] for eRx and Interaction Alerts*Unknown metformin hydrochloride 500 MG Oral Tablet ORAL , Notes to Pharmacist: metformin hydrochloride 500 MG Oral TabletOriginal Medicationmetformin hydrochloride 500 MG Oral Tablet *Reorder from [facility] for eRx and Interaction Alerts*Unknown valsartan 40 MG Oral Tablet [Diovan] ORAL , Notes to Pharmacist: valsartan 40 MG Oral Tablet [Diovan]Original Medicationvalsartan 40 MG Oral Tablet [Diovan] *Reorder from [facility] for eRx and Interaction Alerts*Medication List reviewed [...] ischarge, or localized edema. Upon palpation patient feels a 1-2/10 discomfort. there is no hardened deep soft tissue or crepitus. Calves are loose and nontender and equal bilateral. Active and passive ROM does not exhibit pain. The patient feels pain in area comes and goes and does not recall an injury or exposure to a chemical or fabric. . Nail pathology: N ails 1, 2, [...] - M79.675 4 . A therosclerosis of [place] arteries of extremities with intermittent claudication, bilateral [...] immediately.? 3. O ther specified dermatitis Notes: Superficial area of skin irritation RLE improving. Unna Boot was helpful to patient. She removed it 3 days in as it got a bit dirty. She saw no swelling and feels 80% better than last week. She will soak with epsom salt and warm water twice a day for 2 weeks. She will call if any concerns or changes. She is on blood thinnr which was increase this week. * Immunizations: Immunization record has been reviewed and updated. * Follow Up: 1 0 - 12 weeks (Reason: At-Risk Foot care, sooner if problems develop.) Billing Information: * Visit Code: 13801 Office Visit, Est Pt., Level 3. * Procedure Codes: * Electronic signature of AILYN FENG DPM on 03/10/2025 at 01:56 PM CREATIVE SERVICES WRITER Sign off status: Pending * Provider: Anusha FENG Date: 0 09/05/2024 Generated for Jacquie lord/Robert/Rhiannon on: 1 05/11/2024 01:56 PM CREATIVE SERVICES WRITER
--- OUTSIDE RECORDS SUMMARY | 2024-10-24 05:10 | XMS_ITS ---
Author Organization [facility] Address [address] [place], [place] [address] Care Team Providers Care Wildland Firefighter Name Role Phone FRANCISCO FUCHS Unavailable [phone] Christian Cardozo Unavailable Unavailable LIN FENG Unavailable [phone] Allergies No Known Allergies REASON FOR VISIT *General care Medications Medication SIG (Take, Route, Frequency, Duration) Notes Start Date End Date Status ezetimibe 10 MG / simvastatin 10 MG Oral Tablet [Vytorin] ORAL ezetimibe 10 MG / simvastatin 10 MG Oral Tablet [Vytorin]Original Medicationezetimibe 10 MG / simvastatin 10 MG Oral Tablet [Vytorin] *Reorder from [employer] [facility] for eRx and Interaction Alerts* 10/28/2016 Unknown citalopram 10 MG Oral Tablet ORAL citalopram 10 MG Oral TabletOriginal Medicationcitalopram 10 MG Oral Tablet *Reorder from [facility] for eRx and Interaction Alerts* 10/28/2016 Unknown metformin hydrochloride 500 MG Oral Tablet ORAL metformin hydrochloride 500 MG Oral TabletOriginal Medicationmetformin hydrochloride 500 MG Oral Tablet *Reorder from [facility] for eRx and Interaction Alerts* 10/28/2016 Unknown valsartan 40 MG Oral Tablet [Diovan] ORAL valsartan 40 MG Oral Tablet [Diovan]Original Medicationvalsartan 40 MG Oral Tablet [Diovan] *Reorder from [facility] for eRx and Interaction Alerts* 10/28/2016 Unknown Social History Social History Additional Details Category Social Info Options Details Migrated Social History Migrated Social History Smoking Status : Never smoked , History of tobacco use : Vital Signs Height 65 in 10/24/2024 Weight 179 lbs 10/24/2024 BMI 29.78 kg/m2 10/24/2024 Height-cm 165.1 cm 10/24/2024 Weight-kg 81.19 kg 10/24/2024 Encounters Encounter Location Date Provider Diagnosis [address] [id number] 10/24/2024 LIN FENG Tinea unguium B35.1 ; Pain in right toe(s) M79.674 ; Pain in left toe(s) M79.675 ; Atherosclerosis of [place] arteries of extremities with intermittent claudication, bilateral legs I70.213 ; Type 2 diabetes mellitus with other circulatory complications E11.59 and Other specified dermatitis L30.8 Assessments Encounter Date Diagnosis (ICD Code) Assessment Notes Treatment Notes Treatment Clinical Notes Section Notes 10/24/2024 Tinea unguium (ICD-10 - B35.1) 10/24/2024 Pain in right toe(s) (ICD-10 - M79.674) 10/24/2024 Pain in left toe(s) (ICD-10 - M79.675) 10/24/2024 Atherosclerosis of [place] arteries of extremities with intermittent claudication, bilateral legs (ICD-10 - I70.213) Check and protect LE bilateral daily. Call if any changes or concerns. continue ROM stretches often through out the day. Call if symptoms are unresolving. 10/24/2024 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 The patient was instructed to check his feet daily to report any problems or signs of infection immediately. 10/24/2024 Other specified dermatitis (ICD-10 - L30.8) Superficial area of skin irritation RLE improving. No pain or symptoms Plan Of Treatment Treatment Notes Assessment Notes Atherosclerosis of [place] ar teries of extremities with intermittent claudication, [...] a robin of skin irritation RLE improving. No pain or symptoms Next Appt Details Follow Up: 10 - 12 weeks, Re ason: At-Risk Foot care, sooner if problems develop. Provider Name:LIN VARGAS, 05/01/2025 01:10:00 PM, [address] [place] [address], [id number], History and Physical Notes * HPI (History [...] Date last seen by Dr. Cardozo was 08/2024., Initials nd Examination Category Sub-Category Detail Notes Category Not es Dermatologic Skin findings: Skin is thin, at rophic and lacking pedal hair.right lateral anterior mid tibial area there is a superficial blanchable discoloration on surface of skin. There is no heat, palpable mass, ecchymosis, blister formation, abrasion, discharge, or localized edema. Upon palpation patient feels no discomfort. there is no hardened soft tissue or crepitus. Calves are loose and nontender and equal bilateral. Active and passive ROM does not exhibit pain. Nail pathology: Nails 1, 2, 3, 4, [...] * MELISSA VALERIO EDOB:[birth year] (84 yo F)Acc No.[id number]:10/24/2024 Patient: MELISSA STEWART Provider: Anusha FENG :1940 A ge:83 Y S ex:Female Date:10/24/2024 Address:[address] [place], [place] [id number] Subjective: * Chief Complaints: * * General care * HPI: H PI: General care P atient presents to the office for diabetic foot care. Patient states that their nails are thickened, elongated and painful. Patient states that it is aggravated by shoe gear. Onset is gradual., Patient is taking prescription blood thinners., Date last seen by Dr. Cardozo was 08/2024., Initials nd. * ROS: G eneral / Constitutional: Patient denies w eakness. M usculoskeletal: Patient complains of h ammertoes. P eripheral Vascular: Patient denies b lanching of skin, cold extremities, decreased sensation in extremities. S kin: Patient complains of r thea, dry skin, discoloration. ? N eurologic: Patient denies d izziness, gait abnormality, headache. * Medical History: Denies Past Medical History No Medical History Documented Medical History Verified * Surgical History: Denies Past Surgical History. Surgical History verified. * Hospitalization/Major Diagno stic Procedure: Denies Past Hospitalization. Hospitalization Verified. * Family History: F ather: [...] Medicationcitalopram 10 MG Oral Tablet *Reorder from [employer] for eRx and Interaction Alerts*ezetimibe 10 MG / simvastatin 10 MG Oral Tablet [Vytorin] ORAL , Notes to Pharmacist: ezetimibe 10 MG / simvastatin 10 MG Oral Tablet [Vytorin]Original Medicationezetimibe 10 MG / simvastatin 10 MG Oral Tablet [Vytorin] *Reorder from [employer] for eRx and Interaction Alerts*metformin hydrochloride 500 MG Oral Tablet ORAL , Notes to Pharmacist: metformin hydrochloride 500 MG Oral TabletOriginal Medicationmetformin hydrochloride 500 MG Oral Tablet *Reorder from [facility] for eRx and Interaction Alerts*valsartan 40 MG Oral Tablet [Diovan] ORAL , Notes to Pharmacist: valsartan 40 MG Oral Tablet [Diovan]Original Medicationvalsartan 40 MG Oral Tablet [Diovan] *Reorder from [facility] for eRx and Interaction Alerts*Medication List reviewed and reconciled with the patientUnknown citalopram 10 MG Oral Tablet ORAL , Notes to Pharmacist: citalopram 10 MG Oral TabletOriginal Medicationcitalopram 10 MG Oral Tablet *Reorder from [facility] for eRx and Interaction Alerts*Unknown ezetimibe 10 MG / simvastatin 10 MG Oral Tablet [Vytorin] ORAL , Notes to Pharmacist: ezetimibe 10 MG / simvastatin 10 MG Oral Tablet [Vytorin]Original Medicationezetimibe 10 MG / simvastatin 10 MG Oral Tablet [Vytorin] *Reorder from [facility] for eRx and Interaction Alerts*Unknown metformin hydrochloride 500 MG Oral Tablet ORAL , Notes to Pharmacist: metformin hydrochloride 500 MG Oral TabletOriginal Medicationmetformin hydrochloride 500 MG Oral Tablet *Reorder from [facility] for eRx and Interaction Alerts*Unknown valsartan 40 MG Oral Tablet [Diovan] ORAL , Notes to Pharmacist: valsartan 40 MG Oral Tablet [Diovan]Original Medicationvalsartan 40 MG Oral Tablet [Diovan] *Reorder from [facility] for eRx and Interaction Alerts*Medication [...] or localized edema. Upon palpation patient feels no discomfort. there is no hardened soft tissue or crepitus. Calves are loose and nontender and equal bilateral. Active and passive ROM does not exhibit pain.. Nail pathology: N ails 1, 2, 3, [...] - M79.675 4 . A therosclerosis of [place] arteries of extremities with intermittent claudication, bilateral [...] Superficial area of skin irritation RLE improving. No pain or symptoms * Follow Up: 1 0 - 12 weeks (Reason: At-Risk Foot care, sooner if problems develop.) Billing Information: * Visit Code: 82510 Office Visit, Est Pt., Level 3. * Procedure Codes: * Electronic signature of AILYN FENG DPM on 03/10/2025 at 01:54 PM SENIOR ASIC DESIGN ENGINEER Sign off status: Pending * Provider: Anusha FENG Date: 0 10/24/2024 Generated for Jacquie lord/Robert/eTransmitting on: 1 05/11/2024 01:54 PM SENIOR ASIC DESIGN ENGINEER
--- OUTSIDE RECORDS SUMMARY | 2024-12-26 04:10 | XMS_ITS ---
Author Organization [facility] Address [address] [place], [place] [address] Care Team Providers Care Cnc Operator Machinist Name Role Phone FRANCISCO FUCHS Unavailable [phone] Christian Cardozo Unavailable Unavailable LIN FENG Unavailable [phone] Allergies No Known Allergies REASON FOR VISIT *General care Medications Medication SIG (Take, Route, Frequency, Duration) Notes Start Date End Date Status ezetimibe 10 MG / simvastatin 10 MG Oral Tablet [Vytorin] ORAL ezetimibe 10 MG / simvastatin 10 MG Oral Tablet [Vytorin]Original Medicationezetimibe 10 MG / simvastatin 10 MG Oral Tablet [Vytorin] *Reorder from [employer] for eRx and Interaction Alerts* 10/28/2016 Unknown citalopram 10 MG Oral Tablet ORAL citalopram 10 MG Oral TabletOriginal Medicationcitalopram 10 MG Oral Tablet *Reorder from [employer] for eRx and Interaction Alerts* 10/28/2016 Unknown valsartan 40 MG Oral Tablet [Diovan] ORAL valsartan 40 MG Oral Tablet [Diovan]Original Medicationvalsartan 40 MG Oral Tablet [Diovan] *Reorder from [employer] for eRx and Interaction Alerts* 10/28/2016 Unknown metformin hydrochloride 500 MG Oral Tablet ORAL metformin hydrochloride 500 MG Oral TabletOriginal Medicationmetformin hydrochloride 500 MG Oral Tablet *Reorder from [employer] for eRx and Interaction Alerts* 10/28/2016 Unknown Social History Social History Additional Details Category Social Info Options Details Migrated Social History Migrated Social History Smoking Status : Never smoked , History of tobacco use : Vital Signs Height 65 in 12/26/2024 Weight 179 lbs 12/26/2024 BMI 29.78 kg/m2 12/26/2024 Height-cm 165.1 cm 12/26/2024 Weight-kg 81.19 kg 12/26/2024 Encounters Encounter Location Date Provider Diagnosis [address] [id number] 12/26/2024 LIN FENG Tinea unguium B35.1 ; Pain in right toe(s) M79.674 ; Pain in left toe(s) M79.675 ; Atherosclerosis of [place] arteries of extremities with intermittent claudication, bilateral legs I70.213 ; Type 2 diabetes mellitus with other circulatory complications E11.59 ; Other specified dermatitis L30.8 and Acquired keratosis [keratoderma] palmaris et plantaris L85.1 Assessments Encounter Date Diagnosis (ICD Code) Assessment Notes Treatment Notes Treatment Clinical Notes Section Notes 12/26/2024 Tinea unguium (ICD-10 - B35.1) NAIL DEBRIDEMENT: Nails 1-5 Bilateral were debrided extensively with nail nippers and emery board, reducing length and girth to pink healthy tissue with any subungual debris and necrotic tissue removed 12/26/2024 Pain in right toe(s) (ICD-10 - M79.674) 12/26/2024 Pain in left toe(s) (ICD-10 - M79.675) 12/26/2024 Atherosclerosis of [place] arteries of extremities with intermittent claudication, bilateral legs (ICD-10 - I70.213) Check and protect LE bilateral daily. Call if any changes or concerns. continue ROM stretches often through out the day. Call if symptoms are unresolving. 12/26/2024 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 The patient was instructed to check his feet daily to report any problems or signs of infection immediately. 12/26/2024 Other specified dermatitis (ICD-10 - L30.8) resolved. No pain or symptoms 12/26/2024 Acquired keratosis [keratoderma] palmaris et plantaris (ICD-10 - L85.1) Hyperkeratosis x 2: The skin was prepped with isopropyl alcohol. Using a 15-blade scalpel, the hyperkeratotic skin lesions were sharply debrided down to healthy appearing skin. Plan Of Treatment Treatment Notes Assessment Notes Tinea unguium NAIL DEBRIDEMENT: Na ils 1-5 Bilateral were debrided extensively with nail nippers and emery board, reducing length and girth to pink healthy tissue with any subungual debris and necrotic tissue removed Atherosclerosis of [place] ar teries of extremities with intermittent claudication, bilateral legs Check and protect LE bilateral daily. Ca ll if any changes or concerns. continue ROM stretches often through out the day. Call if symptoms are unresolving. Type 2 diabetes mellitus wit h other circulatory complications Diabetic Foot Care: The patient was educated on diabetes and the lower extremity. The patient was instructed to check his feet daily to report any problems or signs of infection immediately. Other specified dermatitis resolved. No pain or symptoms Acquired keratosis [keratode rma] palmaris et plantaris Hyperkeratosis x 2: The skin was prepped with isopropyl alcohol. Using a 15-blade scalpel, the hyperkeratotic skin lesions were sharply debrided down to healthy appearing skin. Next Appt Details Follow Up: 10 - 12 weeks, Re ason: At-Risk Foot care, sooner if problems develop. Provider Name:LIN VARGAS, 05/01/2025 01:10:00 PM, [address] [place] [address], [id number], History and Physical Notes * HPI (History [...] Date last seen by Dr. Cardozo was August 2024., Initials ab Examination Category Sub-Category Detail Notes Category Not es Dermatologic Skin findings: Skin is thin, at rophic and lacking pedal hair.right lateral anterior mid tibial area no longer has discoloration. There is no heat, palpable mass, ecchymosis, blister formation, abrasion, discharge, or edema. Upon palpation patient feels no discomfort. there is no hardened soft tissue or crepitus. Calves are loose and nontender and equal bilateral. Active and passive ROM does not exhibit pain. Nail pathology: Nails 1, 2, 3, 4, an d 5 bilateral are thick, discolored, and dystrophic with subungual debris. They are painful to palpation Hypertrophic / hyperkeratotic lesion: bi lateral, lateral, 5th digit Neurologic Gross sensation Grossly intact t o [...] * MELISSA VALERIO EDOB:[birth year] (84 yo F)Acc No.[id number]:12/26/2024 Patient: MELISSA STEWART Provider: Anusha FENG :1940 A ge:84 Y S ex:Female Date:12/26/2024 Address:[address] [place], [place] [id number] Subjective: * Chief Complaints: * * General care * HPI: H PI: General care P atient presents to the office for diabetic foot care. Patient states that their nails are thickened, elongated and painful. Patient states that it is aggravated by shoe gear. Onset is gradual., Patient is taking prescription blood thinners., Date last seen by Dr. Cardozo was August 2024., Initials ab. * ROS: G eneral / Constitutional: Patient denies w eakness. M usculoskeletal: Patient complains of h ammertoes. P eripheral Vascular: Patient denies b lanching of skin, cold extremities, decreased sensation in extremities. S kin: Patient complains of d ry skin, discoloration. ? N eurologic: Patient denies [...] Medicationcitalopram 10 MG Oral Tablet *Reorder from [facility] for eRx and Interaction Alerts*ezetimibe 10 MG / simvastatin 10 MG Oral Tablet [Vytorin] ORAL , Notes to Pharmacist: ezetimibe 10 MG / simvastatin 10 MG Oral Tablet [Vytorin]Original Medicationezetimibe 10 MG / simvastatin 10 MG Oral Tablet [Vytorin] *Reorder from [facility] for eRx and Interaction Alerts*metformin hydrochloride 500 MG Oral Tablet ORAL , Notes to Pharmacist: metformin hydrochloride 500 MG Oral TabletOriginal Medicationmetformin hydrochloride 500 MG Oral Tablet *Reorder from [facility] for eRx and Interaction Alerts*valsartan 40 MG Oral Tablet [Diovan] ORAL , Notes to Pharmacist: valsartan 40 MG Oral Tablet [Diovan]Original Medicationvalsartan 40 MG Oral Tablet [Diovan] *Reorder from [facility] for eRx and Interaction Alerts*Medication List reviewed and reconciled with the patientUnknown citalopram 10 MG Oral Tablet ORAL , Notes to Pharmacist: citalopram 10 MG Oral TabletOriginal Medicationcitalopram 10 MG Oral Tablet *Reorder from [facility] for eRx and Interaction Alerts*Unknown ezetimibe 10 MG / simvastatin 10 MG Oral Tablet [Vytorin] ORAL , Notes to Pharmacist: ezetimibe 10 MG / simvastatin 10 MG Oral Tablet [Vytorin]Original Medicationezetimibe 10 MG / simvastatin 10 MG Oral Tablet [Vytorin] *Reorder from [facility] for eRx and Interaction Alerts*Unknown metformin hydrochloride 500 MG Oral Tablet ORAL , Notes to Pharmacist: metformin hydrochloride 500 MG Oral TabletOriginal Medicationmetformin hydrochloride 500 MG Oral Tablet *Reorder from [facility] for eRx and Interaction Alerts*Unknown valsartan 40 MG Oral Tablet [Diovan] ORAL , Notes to Pharmacist: valsartan 40 MG Oral Tablet [Diovan]Original Medicationvalsartan 40 MG Oral Tablet [Diovan] *Reorder from [employer] for eRx and Interaction Alerts*Medication List reviewed [...] hair. right lateral anterior mid tibial area no longer has discoloration. There is no heat, palpable mass, e cchymosis, blister formation, a brasion, discharge, or edema. Upon palpation patient feels no discomfort. there is no hardened soft tissue or crepitus. Calves are loose and nontender and equal bilateral. Active and passive ROM does not exhibit pain.. Hypertrophic / hyperkeratotic lesion: b ilateral, lateral, 5th digit. Nail pathology: N ails 1, 2, 3, [...] - M79.675 4 . A therosclerosis of [place] arteries of extremities with intermittent claudication, bilateral legs - I70.213 5 . 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 A cquired keratosis [keratoderma] palmaris et plantaris - L85.1 Plan: * Treatment: 2. A therosclerosis of [place] arteries of extremities with intermittent claudication, bilateral legs Notes: Check and protect LE bilateral daily. Call if any changes or concerns. continue ROM stretches often through out the day. Call if symptoms are unresolving. 3. T ype 2 diabetes mellitus with other circulatory complications Notes: Diabetic Foot Care: The patient was educated on diabetes and the lower extremity. The patient was instructed to check his feet daily to report any problems or signs of infection immediately.? 4. O ther specified dermatitis Notes: resolved. No pain or symptoms 5. A cquired keratosis [keratoderma] palmaris et plantaris Notes: Hyperkeratosis x 2: The skin was prepped with isopropyl alcohol. Using a 15-blade scalpel, the hyperkeratotic skin lesions were sharply debrided down to healthy appearing skin. * Preventive Medicine: Screenings: F all risk screening F all Risk Assessment: N o falls in the past year. * Follow Up: 1 0 - 12 weeks (Reason: At-Risk Foot care, sooner if problems develop.) Billing Information: * Visit Code: 32331 Office Visit, Est Pt., Level 3. * Procedure Codes: * Electronic signature of AILYN FENG DPM on 03/10/2025 at 01:56 PM RETROFIT INSTALLER Sign off status: Pending * Provider: Anusha FENG Date: Generated for Jacquie lord/Robert/Rhiannon on: 05/11/2024 01:56 PM RETROFIT INSTALLER
--- OUTSIDE RECORDS SUMMARY | 2025-02-27 07:20 | XMS_ITS ---
Author Organization [facility] Address [address] [place], [place] [address] Care Team Providers Care J2Ee Programmer Name Role Phone FRANCISCO FUCHS Unavailable [phone] Christian Cardozo Unavailable Unavailable LIN FENG Unavailable [phone] Allergies No Known Allergies REASON FOR VISIT *General care Medications Medication SIG (Take, Route, Frequency, Duration) Notes Start Date End Date Status citalopram 10 MG Oral Tablet ORAL citalopram 10 MG Oral TabletOriginal Medicationcitalopram 10 MG Oral Tablet *Reorder from [facility] for eRx and Interaction Alerts* 10/28/2016 Unknown ezetimibe 10 MG / simvastatin 10 MG Oral Tablet [Vytorin] ORAL ezetimibe 10 MG / simvastatin 10 MG Oral Tablet [Vytorin]Original Medicationezetimibe 10 MG / simvastatin 10 MG Oral Tablet [Vytorin] *Reorder from [facility] for eRx and Interaction Alerts* 10/28/2016 Unknown metformin hydrochloride 500 MG Oral Tablet ORAL metformin hydrochloride 500 MG Oral TabletOriginal Medicationmetformin hydrochloride 500 MG Oral Tablet *Reorder from [facility] for eRx and Interaction Alerts* 10/28/2016 Unknown valsartan 40 MG Oral Tablet [Diovan] ORAL valsartan 40 MG Oral Tablet [Diovan]Original Medicationvalsartan 40 MG Oral Tablet [Diovan] *Reorder from [facility] for eRx and Interaction Alerts* 10/28/2016 Unknown Social History Social History Additional Details Category Social Info Options Details Migrated Social History Migrated Social History Smoking Status : Never smoked , History of tobacco use : Vital Signs Height 65 in 02/27/2025 Weight 179 lbs 02/27/2025 BMI 29.78 kg/m2 02/27/2025 Height-cm 165.1 cm 02/27/2025 Weight-kg 81.19 kg 02/27/2025 Encounters Encounter Location Date Provider Diagnosis [address] [id number] 02/27/2025 LIN FENG Tinea unguium B35.1 ; Pain [...] Treatment Notes Treatment Clinical Notes Section Notes 02/27/2025 Tinea unguium (ICD-10 - B35.1) NAIL DEBRIDEMENT: Nails 1-5 Bilateral were debrided extensively with nail nippers and emery board, reducing length and girth to pink healthy tissue with any subungual debris and necrotic tissue removed 02/27/2025 Pain in right toe(s) (ICD-10 - M79.674) 02/27/2025 Pain in left toe(s) (ICD-10 - M79.675) 02/27/2025 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 Call if any changes or concerns. continue ROM stretches often through out the day. Call if symptoms are unresolving. 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 The patient was instructed to check his feet daily to report any problems or signs of infection immediately. 02/27/2025 Other specified dermatitis (ICD-10 - L30.8) resolved. No pain or symptoms 02/27/2025 Acquired keratosis [keratoderma] palmaris et plantaris (ICD-10 [...] debris and necrotic tissue removed Atherosclerosis of dry creek ar teries of [...] Provider Name:LIN VARGAS, 05/01/2025 01:10:00 PM, [address] [place] [address], [phone], History and Physical Notes * HPI (History [...] Date last seen by Dr. Cardozo was 01/2025., Initials nd Examination Category Sub-Category Detail Notes Category Not es Dermatologic Skin findings: Skin is thin, at rophic and lacking pedal hair.left anterior mid tibial area has a dry eschar with mild discoloration. There is no heat, palpable mass, [...] * MELISSA VALERIO EDOB:[birth year] (84 yo F)Acc No.[id number]:02/27/2025 Patient: MELISSA STEWART Provider: Anusha FENG :1940 A ge:84 Y S ex:Female Date:02/27/2025 Address:[address] [place], [place] [id number] Subjective: * Chief Complaints: * * General care * HPI: H PI: General care P atient presents to the office for diabetic foot care. Patient states that their nails are thickened, elongated and painful. Patient states that it is aggravated by shoe gear. Onset is gradual., Patient is taking prescription blood thinners., Date last seen by Dr. Cardozo was 01/2025., Initials nd. * ROS: G eneral / [...] Medicationcitalopram 10 MG Oral Tablet *Reorder from [facility] for eRx and Interaction Alerts*ezetimibe 10 MG / simvastatin 10 MG Oral Tablet [Vytorin] ORAL , Notes to Pharmacist: ezetimibe 10 MG / simvastatin 10 MG Oral Tablet [Vytorin]Original Medicationezetimibe 10 MG / simvastatin 10 MG Oral Tablet [Vytorin] *Reorder from [facility] for eRx and Interaction Alerts*metformin hydrochloride 500 MG Oral Tablet ORAL , Notes to Pharmacist: metformin hydrochloride 500 MG Oral TabletOriginal Medicationmetformin hydrochloride 500 MG Oral Tablet *Reorder from [facility] for eRx and Interaction Alerts*valsartan 40 MG Oral Tablet [Diovan] ORAL , Notes to Pharmacist: valsartan 40 MG Oral Tablet [Diovan]Original Medicationvalsartan 40 MG Oral Tablet [Diovan] *Reorder from [facility] for eRx and Interaction Alerts*Medication List reviewed and reconciled with the patientUnknown citalopram 10 MG Oral Tablet ORAL , Notes to Pharmacist: citalopram 10 MG Oral TabletOriginal Medicationcitalopram 10 MG Oral Tablet *Reorder from [facility] for eRx and Interaction Alerts*Unknown ezetimibe 10 MG / simvastatin 10 MG Oral Tablet [Vytorin] ORAL , Notes to Pharmacist: ezetimibe 10 MG / simvastatin 10 MG Oral Tablet [Vytorin]Original Medicationezetimibe 10 MG / simvastatin 10 MG Oral Tablet [Vytorin] *Reorder from [facility] for eRx and Interaction Alerts*Unknown metformin hydrochloride 500 MG Oral Tablet ORAL , Notes to Pharmacist: metformin hydrochloride 500 MG Oral TabletOriginal Medicationmetformin hydrochloride 500 MG Oral Tablet *Reorder from [facility] for eRx and Interaction Alerts*Unknown valsartan 40 MG Oral Tablet [Diovan] ORAL , Notes to Pharmacist: valsartan 40 MG Oral Tablet [Diovan]Original Medicationvalsartan 40 MG Oral Tablet [Diovan] *Reorder from [facility] for eRx and Interaction Alerts*Medication List reviewed [...] is thin, atrophic and lacking pedal hair. left anterior mid tibial area has a dry eschar with mild discoloration. There is no heat, palpable mass, e cchymosis, blister formation, a brasion, d ischarge, or edema. Upon palpation patient feels no [...] Plan: * Treatment: 2. A therosclerosis of dry creek arteries of [...] debrided down to healthy appearing skin. * Follow Up: 1 0 - 12 weeks (Reason: At-Risk Foot care, sooner if problems develop.) Billing Information: * Visit Code: 98151 Office Visit, Est Pt., Level 3. * Procedure Codes: * Electronic signature of AILYN FENG DPM on 03/10/2025 at 01:56 PM CRACKLING PRESS OPERATOR Sign off status: Pending * Provider: Anusha FENG Date: 04/30/2024 Generated for Jacquie lord/Robert/Rhiannon on: 05/11/2024 01:56 PM CRACKLING PRESS OPERATOR
--- NOTE | ~2025-03-10 | XR_ITS ---
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 COMPARISON: No comparisons available. Findings: No acute fracture or malalignment. No significant degenerative changes. Soft tissues unremarkable. Impression: No acute fracture or malalignment. Reviewed, dictated and finalized at location P. NG MECHANIC Impression: No acute fracture or malalignment.
--- OUTSIDE RECORDS SUMMARY | 2025-03-10 13:54 | XMS_ITS | Encounter Summary ---
Author Organization [facility] Healthcare Address [address] [place] [address] Care Team Providers Care Social Services Specialist Name Role Phone Christian Cardozo MD Primary Care Provider Encounter Details Date Type Department Care Team (Late st Contact Info) Description 04/22/2024 Orders Only [facility] Health Information Management [address] [place] [address] Scanning, Provider Social History Tobacco Use Types Packs/Day Years Used Date Smoking Tobacco: Never Smokeless Tobacco: Never Alcohol Use Standard Drinks/Week Comments No 0 (1 standard drink = 0.6 oz pur e alcohol) Comments Unknown Sex and Gender Information Value Date Recorded Sex Assigned at Not on file Legal Sex Female 1:11 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
--- OUTSIDE RECORDS SUMMARY | 2025-03-10 13:54 | XMS_ITS | Encounter Summary ---
Author Organization [facility] Healthcare Address [address] [place] [address] Care Team Providers Care Broadcast Field Supervisor Name Role Phone Christian Cardozo MD Primary Care Provider Encounter Details Date Type Department Care Team (Late st Contact Info) Description 06/11/2024 Orders Only [facility] Health Information Management [address] [place] [address] Scanning, Provider Social History Tobacco Use Types Packs/Day Years Used Date Smoking Tobacco: Never Smokeless Tobacco: Never Alcohol Use Standard Drinks/Week Comments No 0 (1 standard drink = 0.6 oz pur e alcohol) Comments Unknown Sex and Gender Information Value Date Recorded Sex Assigned at Not on file Legal Sex Female 1:11 PM LEASE ATTENDANT Gender Identity Not on file Sexual Orientation [...] on filedocumented in this encounter Care Teams Broadcast Field Supervisor Relationship Specialty Start Date End Date Christian Cardozo MD [address] [facility] [address] [place] [address] PCP - General Family Medicine 06/14/18 documented as of this encounter
--- OUTSIDE RECORDS SUMMARY | 2025-03-10 13:54 | XMS_ITS | Encounter Summary ---
Author Organization [facility] Address [facility] [place] [address] Care Team Providers Care Food Production Machine Operator Name Role Phone Bianca Silverman Primary Care Provider [phone] Christian Cardozo MD Primary Care Provider [phone] Encounter Details Date Type Department Care Team (Late st Contact Info) Description 09/01/2018 Abstract [facility] CONVERSION [address] [place] [address] , Generic Conversion, Social History Tobacco Use Types Packs/Day Years Used Date Smoking Tobacco: Never Assessed Comments Unknown Sex and Gender Information Value Date Recorded Sex Assigned at Female 05/03/2024 2:10 PM HAND CROWN POUNCER Legal Sex Female 5:08 PM CDT Gender Identity Not on file Sexual Orientation Not on file documented as of this encounter Plan of Treatment Upcoming Encounters Date Type Department Care Team (Late st Contact Info) Description 03/17/2025 12:30 PM HAND CROWN POUNCER Appointment [facility] [address] [place] [address] Referral, Self documented as of this encounter Visit Diagnoses Not on filedocumented in this encounter Care Teams Food Production Machine Operator Relationship Specialty Start Date End Date Bianca Silverman FNP [facility] [place] [address] PCP - General NURSE PRACTITIONER 02/22/19 03/13/24 Christian Cardozo MD [address] [facility] [address] [place] [address] PCP - General FAMILY PRACTICE 03/14/24 documented as of this encounter
--- OUTSIDE RECORDS SUMMARY | 2025-03-10 13:54 | XMS_ITS | Encounter Summary ---
Author Organization [facility] Address [facility] [place] [address] Care Team Providers Care Instructional Systems Specialist Name Role Phone Bianca Silverman Primary Care Provider [phone] Christian Cardozo MD Primary Care Provider [phone] Encounter Details Date Type Department Care Team (Latest Contact Info) Description 01/30/2018 Abstract [facility] Medical Group Tanner Mata MD Social History Tobacco Use Types Packs/Day Years Used Date Smoking Tobacco: Never Assessed Comments Unknown Sex and Gender Information Value Date Recorded Sex Assigned at Female 05/03/2024 2:10 PM WAREHOUSE ADMINISTRATIVE ASSISTANT Legal Sex Female 5:08 PM CDT Gender Identity Not on file Sexual Orientation Not on file documented as of this encounter Plan of Treatment Upcoming Encounters Date Type Department Care Team (Late st Contact Info) Description 03/17/2025 12:30 PM WAREHOUSE ADMINISTRATIVE ASSISTANT Appointment [facility] Mammography [address] [place] [address] Referral, Self documented as of this encounter Visit Diagnoses Not on filedocumented in this encounter Care Teams Instructional Systems Specialist Relationship Specialty Start Date End Date Bianca Silverman FNP [facility] [place] [address] PCP - General NURSE PRACTITIONER 02/22/19 03/13/24 Christian Cardozo MD [address] [facility] [address] [place] [address] PCP - General FAMILY PRACTICE 03/14/24 documented as of this encounter
--- OUTSIDE RECORDS SUMMARY | 2025-03-10 13:55 | XMS_ITS | Encounter Summary ---
Author Organization [facility] Healthcare Address [address] [place] [address] Care Team Providers Care Refrigeration Operator Name Role Phone Christian Cardozo MD Primary Care Provider Encounter Details Date Type Department Care Team (Late st Contact Info) Description 08/21/2024 Orders Only [facility] Health Information Management [address] [place] [address] Scanning, Provider Social History Tobacco Use Types Packs/Day Years Used Date Smoking Tobacco: Never Smokeless Tobacco: Never Alcohol Use Standard Drinks/Week Comments No 0 (1 standard drink = 0.6 oz pur e alcohol) Comments Unknown Sex and Gender Information Value Date Recorded Sex Assigned at Not on file Legal Sex Female 1:11 PM BLOCKER AND POLISHER GOLD WHEEL Gender Identity Not on file Sexual Orientation [...] on filedocumented in this encounter Care Teams Refrigeration Operator Relationship Specialty Start Date End Date Christian Cardozo MD [address] [place] [address] PCP - General Family Medicine 06/14/18 documented as of this encounter
--- OUTSIDE RECORDS SUMMARY | 2025-03-10 13:55 | XMS_ITS | Encounter Summary ---
Author Organization [facility] Healthcare Address [address] [place] [address] Care Team Providers Care Medical Receptionist Medical Assistant Name Role Phone Christian Cardozo MD Primary Care Provider Encounter Details Date Type Department Care Team (Late st Contact Info) Description 08/20/2024 Orders Only [facility] Health Information Management [address] [place] [id number] Scanning, Provider Social History Tobacco Use Types Packs/Day Years Used Date Smoking Tobacco: Never Smokeless Tobacco: Never Alcohol Use Standard Drinks/Week Comments No 0 (1 standard drink = 0.6 oz pur e alcohol) Comments Unknown Sex and Gender Information Value Date Recorded Sex Assigned at Not on file Legal Sex Female 1:11 PM MEAT PACKER Gender Identity Not on file Sexual Orientation [...] on filedocumented in this encounter Care Teams Medical Receptionist Medical Assistant Relationship Specialty Start Date End Date Christian Cardozo MD [address] [facility] [address] [place] [address] PCP - General Family Medicine 06/14/18 documented as of this encounter
--- OUTSIDE RECORDS SUMMARY | 2025-03-10 13:55 | XMS_ITS | Encounter Summary ---
Author Organization [facility] Healthcare Address [address] [place] [address] Care Team Providers Care Desk Maker Name Role Phone Christian Cardozo MD Primary Care Provider Encounter Details Date Type Department Care Team (Late st Contact Info) Description 08/23/2024 Orders Only [facility] Health Information Management [address] [place] [address] Scanning, Provider Social History Tobacco Use Types Packs/Day Years Used Date Smoking Tobacco: Never Smokeless Tobacco: Never Alcohol Use Standard Drinks/Week Comments No 0 (1 standard drink = 0.6 oz pur e alcohol) Comments Unknown Sex and Gender Information Value Date Recorded Sex Assigned at Not on file Legal Sex Female 1:11 PM BAND SINGER Gender Identity Not on file Sexual Orientation [...] on filedocumented in this encounter Care Teams Desk Maker Relationship Specialty Start Date End Date Christian Cardozo MD [address] [facility] [address] [place] [address] PCP - General Family Medicine 06/14/18 documented as of this encounter
--- OUTSIDE RECORDS SUMMARY | 2025-03-10 13:55 | XMS_ITS | Encounter Summary ---
Author Organization [facility] Healthcare Address [address] [place] [address] Care Team Providers Care Dramatic Art Teacher Name Role Phone Christian Cardozo MD Primary Care Provider Encounter Details Date Type Department Care Team (Late st Contact Info) Description 11/07/2024 Orders Only [facility] Health Information Management [address] [place] [phone] Scanning, Provider Social History Tobacco Use Types Packs/Day Years Used Date Smoking Tobacco: Never Smokeless Tobacco: Never Alcohol Use Standard Drinks/Week Comments No 0 (1 standard drink = 0.6 oz pur e alcohol) Comments Unknown Sex and Gender Information Value Date Recorded Sex Assigned at Not on file Legal Sex Female 1:11 PM CHANDELIER MAKER Gender Identity Not on file Sexual Orientation [...] on filedocumented in this encounter Care Teams Dramatic Art Teacher Relationship Specialty Start Date End Date Christian Cardozo MD [address] [place] [address] PCP - General Family Medicine 06/14/18 documented as of this encounter
--- OUTSIDE RECORDS SUMMARY | 2025-03-10 13:55 | XMS_ITS | Clinical Summary ---
Author Organization [facility] [address] Address [address] [place] [address] Care Team Providers Care It Support Engineer Name Role Phone Christian Cardozo MD [...] (325 mg total) by mouth daily 04/07/19 Active spironolactone (ALDACTONE) 25 mg tablet Take 1 tablet (25 mg total) by mouth daily 06/21/19 Active atorvastatin (LIPITOR) 80 mg tablet Take 1 tablet (80 mg total) by mouth daily 06/24/19 Active hydrALAZINE (APRESOLINE) 50 mg tablet Take 1 tablet (50 mg total) by mouth 3 (three) times a day 05/31/19 25 Active metoprolol tartrate (LOPRESSOR) 25 mg immediate release tablet Take 1/2 (one-half) tablet by mouth twice daily 90 tablet 3 01/08/20 25 Active warfarin (COUMADIN) 2 mg tabletIndications:C hronic anticoagulation Take 1 tablet (2 mg total) by mouth as directed TAKE 2 TABLETS BY MOUTH DAILY ON MONDAY AND MONDAY, THEN TAKE 3 TABLETS DAILY ON ALL OTHER DAYS OR DIRECTED 228 tablet 01/16/20 25 Active Active Problems Problem Noted Date Diagnosed Date Dyspnea on exertion 02/12/2025 Valvular heart disease 02/12/2025 Hyperglycemia 05/10/2018 Delirium 05/10/2018 Atrial fibrillation with RVR 05/10/2018 Coronary artery disease of n ative artery of [place] heart with stable angina pectoris 05/07/2018 Overview (05/08/2018): Added automatically from request for surgery [id number] S/P CABG (coronary artery bypass graft) Type 2 diabetes mellitus with other specified co mplication Encounters Date Type Department Care Team Description 02/28/2025 Orders Only [facility] Medical [facility] Cardiology [address] [place] [address] [place] [phone] ProviderRiki MD 02/28/2025 Anticoagulation Visit [facility] Cardiology [address] [place] [address] [address] [place] [phone] Martha Wolff RN 02/27/2025 Results Follow-Up [facility] Cardiology [address] [place] [address] [address] [place] [phone] Micheline Kelley RN Transthoracic Echo (TTE) Complete W Doppler/CF 02/18/2025 10:15 AM MACHINE STONECUTTER Ancillary Procedure [facility] Cardiology [address] [place] [address] [address] [place] [phone] Dyspnea on exertion; Valvular heart disease 02/12/2025 1:30 PM MACHINE STONECUTTER Office Visit [place] [address] [place] [phone] Nallely Myrick, CRISTIAN Dyspnea on exertion (Primary Dx); Valvular heart disease; Coronary artery disease of [place] artery of [place] heart with stable angina pectoris; Atrial fibrillation with RVR (HCC) 02/04/2025 Anticoagulation Visit [place] [address] [place] [phone] Micheline Kelley, RN 01/22/2025 Anticoagulation Visit [place] [address] [place] [phone] Elda Mullins, BEST 01/14/2025 Telephone [place] [address] [place] [phone] Twin Brar MD Med Refill 01/06/2025 Anticoagulation Visit [facility] Cardiology [address] [place] [address] [place] [phone] Elda Mullins, BEST 12/26/2024 Anticoagulation Visit [place] [address] [place] [phone] Elda Mullins RN 12/18/2024 Anticoagulation Visit [facility] Cardiology [address] [place] [address] [place] [phone] Micheline Kelley, RN 12/11/2024 Anticoagulation Visit [facility] Cardiology [address] [place] [address] [address] [place] [phone] Micheline Kelley, RN from Last 3 Months Surgical History [...] on file Legal Sex Female 1:11 PM MACHINE STONECUTTER Gender Identity Not on file Sexual Orientation Not on file Last Filed Vital Signs Vital Sign Reading Time Taken Comments Blood Pressure 138/62 02/12/2025 1:17 PM MACHINE STONECUTTER Pulse 59 02/12/2025 1:17 PM MACHINE STONECUTTER Temperature 36.7 C (98 F) 09/25/2018 12:07 PM CDT Respiratory Rate 14 09/25/2018 12:07 PM CDT Oxygen Saturation 96% 02/12/2025 1:17 PM MACHINE STONECUTTER Inhaled Oxygen Concentration - - Weight 75.6 kg (166 lb 9.6 oz) 02/12/2025 1:17 P M MACHINE STONECUTTER Height 165.1 cm (5' 5) 02/12/2025 1:17 PM MACHINE STONECUTTER Body Mass Index 27.72 02/12/2025 1:17 PM MACHINE STONECUTTER Plan of Treatment Health Maintenance Due Date [...] Priority Date/Time Associated Diagnosis Comments PROTIME-INR Routine 02/28/2025 9:28 AM MACHINE STONECUTTER PROTIME-INR Routine 02/27/2025 TRANSTHORACIC ECHO (TTE) COMPLETE W DOPPLER/CF W CONTRAST Routine 02/18/2025 11:50 AM MACHINE STONECUTTER Dyspnea on exertion Valvular heart disease PROTIME-INR Routine 02/04/2025 PROTIME-INR Routine 01/22/2025 PROTIME-INR Routine 01/04/2025 PROTIME-INR Routine 12/26/2024 PROTIME-INR Routine 12/18/2024 PROTIME-INR Routine 12/11/2024 LIPID PANEL Routine 01/08/2024 8:58 AM CDT EGFR STAT 05/16/2018 9:14 AM MACHINE STONECUTTER HEMOGLOBIN A1C Routine 05/07/2018 7:28 PM MACHINE STONECUTTER from Last 3 Months or Most Recently Relevant to Health Maintenance Results * Protime-INR (02/28/2025 9:28 AM MACHINE STONECUTTER) Blood Historical Provider MD LAB BLOOD ORDERABLES Shelley l Result * (ABNORMAL) Protime-INR (02/27/2025) INR 2.60(A) 0.90 - 1.10 EXTERNAL LAB Blood Historical Provider MD LAB BLOOD ORDERABLES Shelley l Result EXTERNAL LAB * TRANSTHORACIC ECHO (TTE) COMPLETE W DOPPLER/CF W CONTRAST (02/18/2025 11:50 AM MACHINE STONECUTTER) Estimated EF 65 % CONS SCIMAGE Anatomical Region Laterality Modality Ultrasound 02/18/2025 10:0 8 AM MACHINE STONECUTTER Narrative 02/18/2025 5:03 PM MACHINE STONECUTTER [facility] Medical Group Cardiology [address], [place] [address] [address] [facility] [address], [place] [address] P:[phone] P:[phone] Echocardiographic Report Patient Name: MELISSA KOWALSKI : 1940 Study Date: 02/18/2025 10:08:49 AM Sex: F Glass Silverer: Margareth Fernandez)(CT), [facility] Location: [facility] Ref Provider: NALLELY MYRICK Height(Cm): 165 BSA: 1.86 Weight(Kg): 75.3 Heart Rate: 51 BP: 138 / 62 Quality: Good Order Provider: NALLELY MYRICK PROCEDURES: Echocardiographic Report: Transthoracic echocardiogram with complete 2D, M-Mode, color Doppler examination and Definity contrast. With Strain Analysis. INDICATIONS: R06.09 Other forms of dyspnea and I38 Endocarditis, valve unspecified. MEASUREMENTS: 2D/MM Value Range Doppler Value Range Estimated EF 65 % BULL Vmax 1.66 cm2 [ 2.00 - 4.00 ] LV GLS -17.99 % AV Mean PG 7 mmHg LVIDd 2D 5.12 cm [ 3.80 - 5.20 ] AV Peak Jude 1.81 m/s [ 1.00 - 1.70 ] LVIDs 2D 4.07 cm [ 2.20 - 3.50 ] AV Peak PG 13 mmHg LVPWd 2D 0.86 cm [ 0.60 - 0.90 ] AV VTI 49.37 cm IVSd 2D 1.00 cm [ 0.60 - 0.90 ] LVOT Diam 2.00 cm [ 1.70 - 2.10 ] AoR Diam 2D 3.00 cm [ 2.70 - 3.30 ] LVOT Peak Jude 0.96 m/s [ 0.70 - 1.10 ] LA Volume 75.72 ml [ 22.00 - 52.00 ] LVOT VTI 27.13 cm LA Volume Index 41 cc/m2 [ 16 - 28 ] PV Peak Jude 1.06 m/s [ 0.40 - 0.80 ] RA Volume 35.31 ml TR Peak Jude 2.82 m/s [ 1.00 - 2.80 ] TR Peak PG 32 mmHg RV S` 7.96 mmHg Tapse 1.90 cm [ 1.71 - 5.00 ] 2D/MM Value Range Doppler Value Range - FINDINGS: Interpretation Site: Exam was interpreted at [facility]. Left Ventricle: Normal left ventricular size. Definity contrast agent used to visually enhance endocardial wall motion and contractility. Lot Number: [id number]. Normal global left ventricular systolic function. Impaired diastolic relaxation Grade I. Ejection Fraction is visually estimated to be 65 %. Global Longitudinal Strain is -18 %. Right Ventricle: Normal right ventricular size. Left Atrium: There is mild enlargement of left atrium. Right Atrium: The right atrium is normal in size. Atrial Septum: Normal atrial septum. Mitral Valve: Normal appearance of the mitral valve. Moderate mitral valve regurgitation. Aortic Valve: No evidence of hemodynamically significant aortic stenosis by Doppler. Aortic cusps appear mildly sclerotic. Tricuspid Valve: Normal appearance of the tricuspid valve. Trivial regurgitation in the tricuspid valve. Pulmonic Valve: Pulmonic valve not well visualized. Pericardium: Normal pericardium with no significant pericardial effusion. Aorta: Normal aortic root. IVC: Normal size and normal respiratory collapse consistent with normal right atrial pressure (<5 mmHg). Pulmonary Artery: Normal pulmonary artery size. CONCLUSIONS: Normal left ventricular size. Definity contrast agent used to visually enhance endocardial wall motion and contractility. Lot Number: [id number]. Normal global left ventricular systolic function. Impaired diastolic relaxation Grade I. Ejection Fraction is visually estimated to be 65 %. Global Longitudinal Strain is -18 %. There is mild enlargement of left atrium. Normal appearance of the mitral valve. Moderate mitral valve regurgitation. No evidence of hemodynamically significant aortic stenosis by Doppler. Aortic cusps appear mildly sclerotic. Electronically Signed By: Twin Brar MD, [facility] 02/18/2025 5:03:32 PM MACHINE STONECUTTER Procedure Note Twin Brar MD - 02/18/2025 [facility] Medical Group Cardiology [address] [facility] [address], [place] [address] [address] [facility] [address], [place] [address] P:[phone] P:[phone] Echocardiographic Report Patient Name: MELISSA KOWALSKI : 1940 Study Date: 02/18/2025 10:08:49 AM Sex: F Glass Silverer: Margareth Barnett ([place])(CT), [facility] Location: [facility] Provider: NALLELY MYRICK Height(Cm): 165 BSA: 1.86 Weight(Kg): 75.3 Heart Rate: 51 BP: 138 / 62 Quality: Good Order Provider: NALLELY MYRICK PROCEDURES: Echocardiographic Report: Transthoracic echocardiogram with complete 2D, M-Mode, color Dopplerexamination and Definity contrast. With Strain Analysis. INDICATIONS: R06.09 Other forms of dyspnea and I38 Endocarditis, valve unspecified. MEASUREMENTS: 2D/MM Value Range Doppler ValueRange Estimated EF 65 % BULL Vmax 1.66cm2 [ 2.00 - 4.00 ] LV GLS -17.99 % AV Mean PG 7mmHg LVIDd 2D 5.12 cm [ 3.80 - 5.20 ] AV Peak Jude 1.81m/s [ 1.00 - 1.70 ] LVIDs 2D 4.07 cm [ 2.20 - 3.50 ] AV Peak PG 13mmHg LVPWd 2D 0.86 cm [ 0.60 - 0.90 ] AV VTI 49.37cm IVSd 2D 1.00 cm [ 0.60 - 0.90 ] LVOT Diam 2.00cm [ 1.70 - 2.10 ] AoR Diam 2D 3.00 cm [ 2.70 - 3.30 ] LVOT Peak Jude 0.96m/s [ 0.70 - 1.10 ] LA Volume 75.72 ml [ 22.00 - 52.00 ] LVOT VTI 27.13cm LA Volume Index 41 cc/m2 [ 16 - 28 ] PV Peak Jude 1.06m/s [ 0.40 - 0.80 ] RA Volume 35.31 ml TR Peak Jude 2.82m/s [ 1.00 - 2.80 ] TR Peak PG 32 mmHg RV S` 7.96 mmHg Tapse 1.90 cm [ 1.71 - 5.00 ] 2D/MM Value Range Doppler ValueRange - FINDINGS: Interpretation Site: Exam was interpreted at [facility]. Left Ventricle: Normal left ventricular size. Definity contrast agent used to visuallyenhance endocardial wall motion and contractility. Lot Number: [id number]. Normal globalleft ventricular systolic function. Impaired diastolic relaxation Grade I.Ejection Fraction is visually estimated to be 65 %. Global Longitudinal Strain is -18 %. Right Ventricle: Normal right ventricular size. Left Atrium: There is mild enlargement of left atrium. Right Atrium: The right atrium is normal in size. Atrial Septum: Normal atrial septum. Mitral Valve: Normal appearance of the mitral valve. Moderate mitral valveregurgitation. Aortic Valve: No evidence of hemodynamically significant aortic stenosis by Doppler.Aortic cusps appear mildly sclerotic. Tricuspid Valve: Normal appearance of the tricuspid valve. Trivial regurgitation in thetricuspid valve. Pulmonic Valve: Pulmonic valve not well visualized. Pericardium: Normal pericardium with no significant pericardial effusion. Aorta: Normal aortic root. IVC: Normal size and normal respiratory collapse consistent with normal rightatrial pressure (<5 mmHg). Pulmonary Artery: Normal pulmonary artery size. CONCLUSIONS: Normal left ventricular size. Definity contrast agent used to visuallyenhance endocardial wall motion and contractility. Lot Number: [id number]. Normal globalleft ventricular systolic function. Impaired diastolic relaxation Grade I.Ejection Fraction is visually estimated to be 65 %. Global Longitudinal Strain is -18 %. There is mild enlargement of left atrium. Normal appearance of the mitral valve. Moderate mitral valveregurgitation. No evidence of hemodynamically significant aortic stenosis by Doppler.Aortic cusps appear mildly sclerotic. Electronically Signed By: Twin Brar MD, [facility] 02/18/2025 5:03:32 PM MACHINE STONECUTTER Result [facility] Nallely Myrick NP CV ECHO PROCEDURES Final Res ult * (ABNORMAL) Protime-INR (02/04/2025) INR 1.70(A) 0.90 - 1.10 EXTERNAL LAB Blood 02/04/2025 Result [facility] Provider MD LAB BLOOD ORDERABLES Shelley l Result Performing Organization Address City/[facility]/ZIP Co de Phone Number EXTERNAL LAB * (ABNORMAL) Protime-INR (01/22/2025) INR 1.40(A) 0.90 - 1.10 EXTERNAL LAB Blood Result [facility] Provider MD LAB BLOOD ORDERABLES Shelley l Result Performing Organization Address City/[facility]/ZIP Co de Phone Number EXTERNAL LAB * (ABNORMAL) Protime-INR (01/04/2025) INR 3.70(A) 0.90 - 1.10 EXTERNAL LAB Blood Result [facility] Provider MD LAB BLOOD ORDERABLES Shelley l Result Performing Organization Address City/[facility]/ZIP Co de Phone Number EXTERNAL LAB * (ABNORMAL) Protime-INR (12/26/2024) INR 1.50(A) 0.90 - 1.10 EXTERNAL LAB Blood Result [facility] Provider MD LAB BLOOD ORDERABLES Shelley l Result Performing Organization Address [facility]/ZIP Co de Phone Number EXTERNAL LAB * (ABNORMAL) Protime-INR (12/18/2024) INR 1.20(A) 0.90 - 1.10 EXTERNAL LAB Blood 12/18/2024 Result [facility] Provider MD LAB BLOOD ORDERABLES Shelley l Result Performing Organization Address [facility] Co de Phone Number EXTERNAL LAB * (ABNORMAL) Protime-INR (12/11/2024) INR 1.50(A) 0.90 - 1.10 EXTERNAL LAB Blood 12/11/2024 Result [facility] Provider MD LAB BLOOD ORDERABLES Shelley l Result Performing Organization Address [facility] de Phone Number EXTERNAL LAB * Lipid panel (01/08/2024 8:58 AM CDT) SCRIBED Cholesterol, Total 150 <200 EXTERNAL LAB SCRIBED HDL 39 >40 EXTERNAL LAB SCRIBED LDL 63 <100 EXTERNAL LAB SCRIBED Triglycerides 242 <150 EXTERNAL LAB Blood Result [facility] Provider MD LAB BLOOD ORDERABLES Edit ed Result - Final Performing Organization Address [facility] Co de Phone Number EXTERNAL LAB * eGFR (05/16/2018 9:14 AM MACHINE STONECUTTER) eGFR 49 mL/min/1.7 3 m2 JACOB SILVER Comment: Interpretive Data Reference Interval Normal >/= 90 mL/min/1.73m2 Mildly decreased* 60 - 89 mL/min/1.73m2 Mildly to moderately decreased 45 - 59 mL/min/1.73m2 Moderately to severely decreased 30 - 44 mL/min/1.73m2 Severely decreased 15 - 29 mL/min/1.73m2 Kidney Failure < 15 mL/min/1.73m2 *Relative to young adult level If -[place] multiply value by 1.16. Estimated glomerular filtration [...] 2015. Blood specimen (specimen) 05/16/2018 9:14 AM MACHINE STONECUTTER 05/16/2018 9:16 AM MACHINE STONECUTTER Narrative JACOB - 05/16/2018 9:47 AM MACHINE STONECUTTER us Pari Candelario NP LAB BLOOD ORDERABLES Shelley l Result Performing Organization Address [facility] de Phone Number [facility] [address] [place] [place] [address] * (ABNORMAL) Hemoglobin A1c (05/07/2018 7:28 PM MACHINE STONECUTTER) Hgb A1C 9.0(H) 4.0 - 5.6 % [facility] Estimated Average Glucose 212 mg/dL [facility] Comment: The ADA recommends reporting an estimated Average Glucose (eAG) with all Hemoglobin A1c results using the equation derived from a study of 507 normal and diabetic adults. Minority populations were underrepresented and children were not included. (Diabetes Care 31:5384-1856, 2008). The eAG is not equivalent to a fasting glucose. Blood specimen (specimen) 05/07/2018 7:28 PM MACHINE STONECUTTER 05/07/2018 8:02 PM MACHINE STONECUTTER Narrative JACOB - 05/07/2018 8:18 PM MACHINE STONECUTTER us Luke Magana MD LAB BLOOD ORDERABLES Final R esult Performing Organization Address [facility] Co de Phone Number [facility] [address] Department [place] [address] from Last 3 Months or Most Recently Relevant to Health Maintenance Insurance MEDICARE [facility] MEDICARE [facility] [employer] CHOICE MEDICARE PPO Advance Directives For more information, please contact: [phone] * Full Code (Latest Code Status on File) Date Activated Date Inactivated Comments 05/18/2018 7:34 PM * Full Code Date Activated Date Inactivated Comments 05/08/2018 3:11 PM 05/16/2018 5:35 PM Care Teams It Support Engineer Relationship Specialty Start Date End Date Christian Cardozo MD [address] [facility] [address] [place] [address] PCP - General Family Medicine 06/14/18
--- OUTSIDE RECORDS SUMMARY | 2025-03-10 13:55 | XMS_ITS | Encounter Summary ---
Author Organization [facility] Address [facility] [place] [address] Care Team Providers Care Ecg Technician Name Role Phone Bianca Silverman Primary Care Provider [phone] Christian Cardozo MD Primary Care Provider [phone] Encounter Details Date Type Department Care Team (Late st Contact Info) Description 01/27/2014 Abstract [facility] CONVERSION [address] [place] [address] , Generic ConversionMD Social History Tobacco Use Types Packs/Day Years Used Date Smoking Tobacco: Never Assessed Comments Unknown Sex and Gender Information Value Date Recorded Sex Assigned at Female 05/03/2024 2:10 PM SALES FLOOR ASSOCIATE Legal Sex Female 5:08 PM CDT Gender Identity Not on file Sexual Orientation Not on file documented as of this encounter Plan of Treatment Upcoming Encounters Date Type Department Care Team (Late st Contact Info) Description 03/17/2025 12:30 PM SALES FLOOR ASSOCIATE Appointment [facility] [address] [place] [address] Referral, Self documented as of this encounter Visit Diagnoses Not on filedocumented in this encounter Care Teams Ecg Technician Relationship Specialty Start Date End Date Bianca Silverman FNP [facility] [place] [address] PCP - General NURSE PRACTITIONER 02/22/19 03/13/24 Christian Cardozo MD [address] [facility] [address] [place] [address] PCP - General FAMILY PRACTICE 03/14/24 documented as of this encounter
--- OUTSIDE RECORDS SUMMARY | 2025-03-10 13:56 | XMS_ITS | Clinical Summary ---
Author Organization [facility] Address [address] [place] [address] Care Team Providers Care Retail Services Professional Name Role Phone Christian Cardozo MD Primary Care Provider [phone] Allergies No known active allergies Medications amLODIPine [...] Sex Assigned at Female 05/03/2024 2:10 PM SCREEN PRINTING MACHINE LOADER UNLOADER Legal Sex Female 5:08 PM CDT Gender [...] 06/24/2021 12:27 PM CDT Plan of Treatment Upcoming Encounters Date Type Department Care Team (Late st Contact Info) Description 03/17/2025 12:30 PM SCREEN PRINTING MACHINE LOADER UNLOADER Appointment [facility] [address] [place] [address] Referral, Self Health Maintenance Due Date Last Done Comments Diabetes: Retinopathy Eye Exam 12/13/1959 DTaP, Tdap and Td Vaccines (1 - Tdap) 1960 Zoster Vaccines (1 of 2) 12/13/1991 Annual Medicare Wellness Visit 2006 Dexa Scan (General) 2006 RSV Immunization or 60+ Years (1 - 1-dose 75+ series) 2016 Pneumococcal Vaccine: 50+ Years (2 of 2 - PPSV23, PCV20, or PCV21) 02/08/2018 12/14/2017 Hemoglobin A1C 11/04/2018 05/07/2018, 05/09/2012 COVID-19 Vaccine ( season) 2024 Influenza Adult (#1) 2024 01/01/2019, 12/14/2017, 12/28/2016, Additional history exists Lipid Panel 06/11/2025 06/11/2024 Hepatitis A Vaccines Aged Out No long er eligible based on patient's age to complete this topic Meningococcal B Vaccine Aged Out No l [...] diabetes mellitus with ESRD (end-stage renal disease) ([facility]) Inadequately controlled diabetes mellitus ([facility]) Encounter for long-term (current) use of insulin ([facility]) Other specified abnormal findings of blood chemistry Chronic kidney disease, unspecified HEMOGLOBIN, GLYCOSYLATED Routine 05/09/2012 11:40 AM SCREEN PRINTING MACHINE LOADER UNLOADER from Last 3 Months or Most Recently Relevant to Health Maintenance Results * (ABNORMAL) LIPID PANEL (06/11/2024 10:39 AM CDT) CHOLESTEROL 162 <200.0 MG/DL 06/11/2024 11:04 AM T [facility] TRIGLYCERIDES 173(H) <150 MG/DL 06/11/2024 11:04 AM T [facility] HDL 44 >40.0 MG/DL 06/11/2024 11:04 AM [facility] LDL (CALCULATED) 83 <100 MG/DL 06/11/2024 11:04 AM T [facility] NON HDL CHOLESTEROL 118 <130 MG/DL 06/11/2024 11:04 AM [facility] CHOL/HDL RATIO 3.7 0.0 - 4.5 06/11/2024 11:04 AM CDT [facility] VLDL CALCULATION 35 5 - 55 MG/DL 06/11/2024 11:04 AM CDT [facility] LIPID INTERPRETATION 06/11/2024 11:04 AM CDT [facility] Comment: [facility] CONCENSUS REPORT RECOMMENDATIONS: ADULT CHILD LOW RISK: CHOLESTEROL <200 <170 TRIGLYCERIDE <150 --- HDL >=60 --- LDL <100 <110 BORDERLINE: CHOLESTEROL 200-239 170-199 TRIGLYCERIDE 150-199 --- HDL 40-59 --- LDL 100-159 110-129 HIGH RISK: CHOLESTEROL >=240 >=200 TRIGLYCERIDE >=200 --- HDL <40 --- LDL >=160 >=130 06/11/2024 10:3 9 AM CDT us Krissy Dumont MD LABORATORY Final Result [facility] [address] [place] [address], * (ABNORMAL) HEMOGLOBIN, GLYCOSYLATED (05/09/2012 11:40 AM SCREEN PRINTING MACHINE LOADER UNLOADER) HGB A1C 6.9 INCREASED RISK OF DIABETES <5.7% NON-DIABETES 5.7-6.4% INCREASED RISK FOR FUTURE DIABETES > OR = 6.5 CONSISTENT WITH DIABETES STANDARDS OF MEDICAL CARE IN DIABETES-2010 DIABETES CARE, 33(SUPP 1): S1-S61,2010 (H) <5.7 % [facility] TO EPIC CONVERSION 05/09/2012 11:4 0 AM SCREEN PRINTING MACHINE LOADER UNLOADER 05/09/2012 11:40 AM SCREEN PRINTING MACHINE LOADER UNLOADER Narrative [facility] TO EPIC CONVERSION - 05/09/2012 12:21 PM SCREEN PRINTING MACHINE LOADER UNLOADER Result Communication: No patient communication needed at this time us Ahsan Cash MD LABORATORY Final Result [facility] TO EPIC CONVERSION from Last 3 Months or Most Recently Relevant to Health Maintenance Insurance [employer] MEDICARE Care Teams Retail Services Professional Relationship Specialty Start Date End Date Christian Cardozo MD [address] [facility] [address] [place] [address] PCP - General FAMILY PRACTICE 03/14/24
--- OUTSIDE RECORDS SUMMARY | 2025-03-10 13:56 | XMS_ITS | Encounter Summary ---
Author Organization [facility] Address [address] [place] [address] Care Team Providers Care Forklift Operator Name Role Phone Christian Cardozo MD Primary Care Provider Encounter Details Date Type Department Care Team (Late st Contact Info) Description 08/29/2024 Orders Only [facility] [facility] [place] [address] [place] [id number] Scanning, Provider Social History Tobacco Use Types Packs/Day Years Used Date Smoking Tobacco: Never Smokeless Tobacco: Never Alcohol Use Standard Drinks/Week Comments No 0 (1 standard drink = 0.6 oz pur e alcohol) Comments Unknown Sex and Gender Information Value Date Recorded Sex Assigned at Not on file Legal Sex Female 1:11 PM RNFA Gender Identity Not on file Sexual Orientation [...] on filedocumented in this encounter Care Teams Forklift Operator Relationship Specialty Start Date End Date Christian Cardozo MD [address] [facility] [address] [place] [address] PCP - General Family Medicine 06/14/18 documented as of this encounter
--- OUTSIDE RECORDS SUMMARY | 2025-03-10 13:56 | XMS_ITS | Encounter Summary ---
Author Organization [facility] Address [address] [place] [address] Phone Care Team Providers Care Commercial Or Institutional Cleaner Name Role Phone Christian Cardozo MD Primary Care Provider Encounter Details Date Type Department Care Team (Latest Contact Info) Description 08/04/2023 Transcribe Orders [facility] [address] [place] [address] Dhiraj Witt MD [address] [facility] [address] [place] [address] Encounter for other specified special examinations (Primary [...] Primary documented in this encounter Care Teams Commercial Or Institutional Cleaner Relationship Specialty Start Date End Date Christian Cardozo MD [address] [place] [address] PCP - General Family Medicine 08/04/23 documented as of this encounter
--- OUTSIDE RECORDS SUMMARY | 2025-03-10 13:56 | XMS_ITS | Clinical Summary ---
Author Organization [facility] Address [address] [place] [address] Phone Care Team Providers Care Svp Chief Marketing Officer Name Role Phone Christian Cardozo MD Primary [...] complete this topic Human Papillomavirus (HPV) Immunization (No Doses Required) Completed Meningococcal Immunization (ACWY) Aged Out No longer eligible based on patient's age to complete this topic Rotavirus Immunization Aged Out No lo nger eligible based on patient's age to complete this topic Insurance [address] [place] [address] MEDICARE C BCBS PPO Care Teams Svp Chief Marketing Officer Relationship Specialty Start Date End Date Christian Cardozo MD [address] [place] [address] PCP - General Family Medicine 08/04/23
--- OUTSIDE RECORDS SUMMARY | 2025-03-10 13:56 | XMS_ITS | Patient Health Record ---
Author Organization [facility] Address [address] [place], [place] [address] Care Team Providers Care Form Grader Name Role Phone FRANCISCO FUCHS Unavailable [phone] Christian Cardozo Unavailable Unavailable LIN FENG Unavailable [phone] Allergies No Known Allergies Reason For Referral No Information Medications Medication SIG (Take, Route, Frequency, Duration) Notes Start Date End Date Status citalopram 10 MG Oral Tablet ORAL citalopram 10 MG Oral TabletOriginal Medicationcitalopram 10 MG Oral Tablet *Reorder from [employer] for eRx and Interaction Alerts* 10/28/2016 Unknown ezetimibe 10 MG / simvastatin 10 MG Oral Tablet [Vytorin] ORAL ezetimibe 10 MG / simvastatin 10 MG Oral Tablet [Vytorin]Original Medicationezetimibe 10 MG / simvastatin 10 MG Oral Tablet [Vytorin] *Reorder from [employer] for eRx and Interaction Alerts* 10/28/2016 Unknown metformin hydrochloride 500 MG Oral Tablet ORAL metformin hydrochloride 500 MG Oral TabletOriginal Medicationmetformin hydrochloride 500 MG Oral Tablet *Reorder from [employer] for eRx and Interaction Alerts* 10/28/2016 Unknown valsartan 40 MG Oral Tablet [Diovan] ORAL valsartan 40 MG Oral Tablet [Diovan]Original Medicationvalsartan 40 MG Oral Tablet [Diovan] *Reorder from [employer] for eRx and Interaction Alerts* 10/28/2016 Unknown Immunizations Vaccine Route Administration Date Status Comme nts Influenza, high dose seasonal Unknown 01/02/2023 Admini stered Social History Social History Additional Details Category Social Info Options Details Migrated Social History Migrated Social History Smoking Status : Never smoked , History of tobacco use : Vital Signs Height-cm 165.1 cm 02/27/2025 Weight-kg 81.19 kg 02/27/2025 Height 65 in 02/27/2025 Weight 179 lbs 02/27/2025 BMI 29.78 kg/m2 02/27/2025 Encounters Encounter Location Date Provider Diagnosis [address] [id number] 08/22/2024 LIN FENG Tinea unguium B35.1 ; Pain in right toe(s) M79.674 ; Pain in left toe(s) M79.675 ; Atherosclerosis of [place] arteries of extremities with intermittent claudication, bilateral legs I70.213 and Type 2 diabetes mellitus with other circulatory complications E11.[address] [id number] 08/29/2024 LIN FENG Tinea unguium B35.1 ; Pain in right toe(s) M79.674 ; Pain in left toe(s) M79.675 ; Atherosclerosis of [place] arteries of extremities with intermittent claudication, bilateral legs I70.213 ; Type 2 diabetes mellitus with other circulatory complications E11.59 and Other specified dermatitis L30.[address] [id number] 09/05/2024 LIN FENG Tinea unguium B35.1 ; Pain in right toe(s) M79.674 ; Pain in left toe(s) M79.675 ; Atherosclerosis of [place] arteries of extremities with intermittent claudication, bilateral legs I70.213 ; Type 2 diabetes mellitus with other circulatory complications E11.59 and Other specified dermatitis L30.[address] [id number] 10/24/2024 LIN FENG Tinea unguium B35.1 ; Pain in right toe(s) M79.674 ; Pain in left toe(s) M79.675 ; Atherosclerosis of [place] arteries of extremities with intermittent claudication, bilateral legs I70.213 ; Type 2 diabetes mellitus with other circulatory complications E11.59 and Other specified dermatitis L30.8 [address] [id number] 12/26/2024 LIN FENG Tinea unguium B35.1 ; Pain in right toe(s) M79.674 ; Pain in left toe(s) M79.675 ; Atherosclerosis of [place] arteries of extremities with intermittent claudication, bilateral legs I70.213 ; Type 2 diabetes mellitus with other circulatory complications E11.59 ; Other specified dermatitis L30.8 and Acquired keratosis [keratoderma] palmaris et plantaris L85.[address] [id number] 02/27/2025 LIN FENG Tinea unguium B35.1 ; Pain in right toe(s) M79.674 ; Pain in left toe(s) M79.675 ; Atherosclerosis of [place] arteries of extremities with intermittent claudication, bilateral legs I70.213 ; Type 2 diabetes mellitus with other circulatory complications E11.59 ; Other specified dermatitis L30.8 and Acquired keratosis [keratoderma] palmaris et plantaris L85.1 [facility] [address] [place] [id number] 03/28/2024 FRANCISCO SNOOK Tinea unguium B35.1 ; Pain in right toe(s) M79.674 ; Pain in left toe(s) M79.675 ; Atherosclerosis of [place] arteries of extremities with intermittent claudication, bilateral legs I70.213 and Type 2 diabetes mellitus with other circulatory complications E11.[address] [id number] 05/30/2024 FRANCISCO SNOOK Tinea unguium B35.1 ; Pain in right toe(s) M79.674 ; Pain in left toe(s) M79.675 ; Atherosclerosis of [place] arteries of extremities with intermittent claudication, [...] in right toe(s) (ICD-10 - M79.674) 02/27/2025 Tinea unguium (ICD-10 - B35.1) NAIL DEBRIDEMENT: Nails 1-5 Bilateral were debrided extensively with nail nippers and emery board, reducing length and girth to pink healthy tissue with any subungual debris and necrotic tissue removed 02/27/2025 Pain in right toe(s) (ICD-10 - M79.674) 02/27/2025 Pain in left toe(s) (ICD-10 - M79.675) 12/26/2024 Pain in left toe(s) (ICD-10 - [...] toe(s) (ICD-10 - M79.675) 08/29/2024 Atherosclerosis of [place] arteries of extremities with intermittent claudication, bilateral legs (ICD-10 - I70.213) Check and protect LE bilateral daily. Call if any changes or concerns. continue ROM stretches often through out the day. Call if symptoms are unresolving. return in 1 week 09/05/2024 Atherosclerosis of [place] arteries of extremities with intermittent claudication, bilateral legs (ICD-10 - I70.213) Check and protect LE bilateral daily. Call if any changes or concerns. continue ROM stretches often through out the day. Call if symptoms are unresolving. 10/24/2024 Atherosclerosis of [place] arteries of extremities with intermittent claudication, bilateral legs (ICD-10 - I70.213) Check and protect LE bilateral daily. Call if any changes or concerns. continue ROM stretches often through out the day. Call if symptoms are unresolving. 12/26/2024 Atherosclerosis of [place] arteries of extremities with intermittent claudication, bilateral legs (ICD-10 - I70.213) Check and protect LE bilateral daily. Call if any changes or concerns. continue ROM stretches often through out the day. Call if symptoms are unresolving. 02/27/2025 Atherosclerosis of [place] arteries of extremities with intermittent claudication, [...] problems or signs of infection immediately. 12/26/2024 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 The patient was instructed to check his feet daily to report any problems or signs of infection immediately. 09/05/2024 Type 2 diabetes mellitus with other [...] signs of infection immediately. 08/22/2024 Atherosclerosis of [place] arteries of extremities with intermittent claudication, bilateral legs (ICD-10 - I70.213) Check and protect LE bilateral daily. Call if any changes or concerns. 03/28/2024 Atherosclerosis of [place] arteries of extremities with intermittent claudication, bilateral legs (ICD-10 - I70.213) 05/30/2024 Atherosclerosis of [place] arteries of extremities with intermittent claudication, [...] irritation RLE improving. No pain or symptoms 02/27/2025 Other specified dermatitis (ICD-10 - L30.8) resolved. No pain or symptoms 02/27/2025 Acquired keratosis [keratoderma] palmaris et plantaris (ICD-10 - L85.1) Hyperkeratosis x 2: The skin was prepped with isopropyl alcohol. Using a 15-blade scalpel, the hyperkeratotic skin lesions were sharply debrided down to healthy appearing skin. 12/26/2024 Acquired keratosis [keratoderma] palmaris et plantaris (ICD-10 - L85.1) Hyperkeratosis x 2: The skin was prepped with isopropyl alcohol. Using a 15-blade scalpel, the hyperkeratotic skin lesions were sharply debrided down to healthy appearing skin. Plan Of Treatment Next Appt Details Provider Name:LIN VARGAS, 05/01/2025 01:10:00 PM, [address] [place] [address], [phone], Insurance Providers Payer Name Payer Address Payer Phone Subscriber Number Group Number Insured Name Patient Relationship to Insured Coverage Start Date Coverage End Date [facility] [address] [place] [address] [id number] MELISSA VALERIO Self - patient is the insured
--- OUTSIDE RECORDS SUMMARY | 2025-03-10 13:57 | XMS_ITS | Clinical Summary ---
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
== END 2025-03-10 13:02 | disposition home or self-care (01) ==
PROVIDERS: PCP Family Medicine; Visit Provider Physician Assistant
DX: S81.802A Unspecified open wound, left lower leg, initial encounter (principal); L03.116 Cellulitis of left lower limb; X58.XXXA Exposure to other specified factors, initial encounter
CPT/HCPCS: 73590